=== PATIENT | male | born 1945 | race Caucasian/White ===

== ENCOUNTER 2016-08-07 12:12 | Inpatient (IN) | payer BC, OTHER ==
[~2016-08-07] VITALS: Ht 190.5 cm; Wt 150.9 kg
[~2016-08-07 12:12] MED LIST: ALLO100T PO; AZEL0.056; CZR25; ENOX1INJ14 SQ; TPRSR25
[2016-08-07] MEDS ORDERED: CHOL1000 PO (12:26)
[2016-08-07] MEDS ORDERED: OMEG10007 PO (12:26)
[2016-08-07] MEDS ORDERED: GLUC10007 PO (12:26)
[2016-08-07] MEDS ORDERED: WARF10TA4 PO (12:26)
[2016-08-07] MEDS ORDERED: LEVO50TA6 PO (12:26)
[2016-08-07] MEDS ORDERED: ALLO300T2 PO (12:39)
[2016-08-07] MEDS ORDERED: TPRSR/100 PO (12:39)
[2016-08-07] MEDS ORDERED: LOSA100T65 PO (12:39)
[2016-08-07 13:51] LABS: BASO % 0.6 %; BASO ABS # 0.05 K/uL (0-0.2); COMPLETE YES; EOS % 3.2 %; HEMATOCRIT 51.3 % (42-52); IG% 0.4 %; LYMPH % 18.9 %; LYMPH ABS # 1.55 K/uL (1.2-3.4); MEAN CELL VOLUME 91.1 fL (80-100); MEAN CORPUSCULAR HEMOGLOBIN 31.3 pg (25-34); MEAN CORPUSCULAR HGB CONC 34.3 g/dl (32-36); MEAN PLATELET VOLUME 12.1 fL (7.4-10.4); MONO % 3.8 %; NEUT % 73.1 %; PLATELET COUNT 205 K/uL (130-400); RED BLOOD COUNT 5.63 M/uL (4.7-6.1); WHITE BLOOD COUNT 8.22 K/uL (4.8-10.8)
[2016-08-07 14:14] LABS: BUN/CREATININE RATIO 16.9 (10-20); CALCIUM 9.4 mg/dl (8.5-10.1); CREATININE 1.5 mg/dl (0.60-1.40); POTASSIUM 4.8 mmol/L (3.5-5.1)
[2016-08-07 14:17] LABS: ALB/GLOB RATIO 0.7 (0.9-2)
[2016-08-07 14:21] LABS: INR 2.1 (0.9-1.1)
[2016-08-07 14:27] LABS: PARTIAL THROMBOPLASTIN RATIO 1.8; PROTHROMBIN TIME (PATIENT) 23.3 SECONDS (9.0-12.0)
--- NOTE | 2016-08-07 14:28 | EMERGENCY ROOM VISIT NOTE ---
ED Visit Note First contact with patient: 12:24 The patient was seen and examined with Antonella Stroud PA-C. I agree with the history, physical and findings. Please see the note for disposition and details.
--- NOTE | 2016-08-07 15:13 | DIAGNOSTIC IMAGING REPORT ---
ULTRASOUND LEFT VENOUS DOPP LOWER EXT UNILAT CLINICAL HISTORY: Left leg pain DISC H AND COMPARISON STUDY: No previous studies for comparison. FINDINGS: No intraluminal thrombus is visualized in left common femoral or superficial femoral veins. There is thrombus present within the distal popliteal vein, and one of 2 posterior tibial veins. There is also thrombus within a popliteal vein branch, likely the sural vein. IMPRESSION: Left leg DVT involving the distal popliteal vein and one of 2 posterior tibial veins. Electronically signed by: Christiano Liu M.D. 08/07/2016 3:11 PM Dictated Date/Time: 08/07/2016 3:08 PM
--- NOTE | 2016-08-07 15:16 | DIAGNOSTIC IMAGING REPORT ---
ARTERIAL DOPPLER ULTRASOUND LEFT LOWER EXTREMITY CLINICAL HISTORY: left leg pain, discoloration COMPARISON STUDY: No previous studies for comparison. FINDINGS: There is triphasic flow within the left common femoral, superficial femoral, popliteal, posterior tibial, peroneal, and anterior tibial arteries. No high velocity jets were visualized. Within the dorsalis pedis artery, there is an area of suspected occlusion. IMPRESSION: 1. No evidence of left lower extremity arterial stenosis from the groin to the major calf arteries. 2. Focal occlusion of the dorsalis pedis artery. Electronically signed by: Christiano Liu M.D. 08/07/2016 3:15 PM Dictated Date/Time: 08/07/2016 3:12 PM
[2016-08-07] MEDS ORDERED: ACETAMINOPHEN 325 MG TAB PO PRN (17:15)
[2016-08-07] MEDS ORDERED: ONDANSETRON INJ 2 MG/ML 2 ML VIAL IV PRN (17:15)
[2016-08-07] MEDS ORDERED: ALUMINUM/MAGNESIUM/SIMETH (MAALOX MAX) 30 ML UDC PO PRN (17:15)
[2016-08-07] MEDS ORDERED: POLYETHYLENE (MIRALAX) 17 GM PACK PO PRN (17:15)
[2016-08-07] MEDS ORDERED: MAGNESIUM HYDROXIDE SUSP 30 ML UDC PO PRN (17:15)
--- NOTE | 2016-08-07 17:48 | History and Physical ---
History & Physical Date & Time of Service: August 07, 2016 at 17:28 Chief Complaint: Purple Toe Symdrome, Might Be Infected Primary Care Physician: Clovis Heredia M.D. History of Present Illness Source: patient Mr. Rachel is a 70 y/o male with PMHx of Paroxysmal Atrial Fibrillation, HTN, CKD Stage III, Hypothyroidism, and DVT who presents to the ED for purple discoloration of toes of L foot since . He reports a rather sudden onset of purple discoloration largely of the 2nd and 3rd toes of the L foot with some involvement of the great toe which appeared to transcend up the wood. He reports that the purple discoloration of the wood and krueger is new since . He has never developed pain prior to the discoloration or currently. On Sunday he notes that the skin of the toes began to weep clear drainage and today he notes some blood mixed with this clear drainage. He denies purulent drainage. He also reports reddened/purple discoloration located between the R 2nd and 3rd toes that extends to the ball of the foot that is painless. Associated LLE edema which is not new but does report worsening of edema. He denies trauma to the feet or legs. His anticoagulation history reviewed and Dr. Zheng's note from outpatient clinic reviewed. Patient was initially placed on Rivaroxaban for his atrial fibrillation and reports being on this medication for a long time. In April, he developed left lower extremity edema and ultrasound revealed DVT in the soleal vein. Per patient, he was switched to apixaban but he appears to have failed these medications as new thrombi developed. Unsure why medications were switched within the same anticoagulation class. He was referred to Dr. Carmona and Dr. Zheng who placed him on Lovenox 1 mg/kg BID as a bridge for Coumadin recently. Upon arrival to ED, INR is therapeutic at 2.1. Patient was seen in outpatient anticoagulation clinic today and referred to the ED. He previously smoked cigars intermittently but quit 7 months ago and denies chewing tobacco use. He denies family history of hypercoagulable states. Reports father and brother from [place] but no known clots. He denies a personal history of known AAA but states he was told "I have a longer aorta"?. He denies H/O DVT prior to this finding in April or H/O PE. In the ED, Venous U/S reveals DVT of distal popliteal, popliteal branch, and one of the posterior tibial veins. Arterial U/S with focal occlusion of dorsalis pedis artery. He is normotensive, afebrile, and without leukocytosis. Outpatient note reports LLE warm to touch. On exam in ED, foot is cool to touch with adequate cap refill and no signs of necrotic tissue currently. Foot continues to have clear drainage. Pulses difficult to appreciate to palpation but confirmed by doppler and marked. 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) Multi-Drug Resistant Organisms History of MDRO: No Allergies Coded Allergies: Hydrochlorothiazide (Unverified Allergy, Unknown, "shut down kidneys", ) Home Medications Scheduled Allopurinol (Zyloprim), 300 MG PO DAILY Cholecalciferol (Vitamin D3), Unknown Dose PO DAILY Fish Oil (Bucyrus-3), Unknown Dose PO BID Levothyroxine Sodium (Levothyroxine Sodium), 1 TAB PO DAILY Losartan Potassium (Cozaar), 100 MG PO DAILY Metoprolol Succinate (Metoprolol Succinate ER), 100 MG PO DAILY Warfarin Sod (Jantoven), 10 MG PO DAILY Miscellaneous Medications Glucosamine Sulfate (Glucosamine), 1,000 MG PO Review of Systems Constitutional: No chills, No fever Eyes: No worsening of vision ENT: No nasal symptoms, No sore throat, No trouble swallowing Respiratory: No cough, No shortness of breath Cardiovascular: No chest pain Abdomen: No constipation, No diarrhea, No nausea, No pain, No vomiting Musculoskeletal: + swelling (LLE), No calf pain Genitourinary - Male: No dysuria Neurologic: No numbness/tingling Integumentary: + new/changing skin lesions (LLE - purple discoloration of wood and toes; reddened/purple discoloration of RLE between 1st and 2nd toes), No rash Allergic / Immunologic: No poor healing Physical Exam Vital Signs Date Time Temp Pulse Resp B/P Pulse Ox O2 Delivery O2 Flow Rate FiO2 08/07/16 15:06 65 18 139/92 96 Room Air 08/07/16 12:18 36.7 84 18 160/97 94 Room Air General Appearance: WD/WN, no apparent distress Head: normocephalic, atraumatic Eyes: sclerae normal ENT: hearing grossly normal Neck: supple, no JVD, trachea midline Respiratory/Chest: lungs clear, normal breath sounds, no respiratory distress, no accessory muscle use Cardiovascular: regular rate, rhythm, no gallop, no murmur Abdomen/GI: normal bowel sounds, non tender, soft Extremities/Musculoskelatal: no calf tenderness, normal capillary refill, + pedal edema, + pertinent finding (L foot cool to touch, pulses hard to appreciate, purple discoloration of anterior wood region with thickened browned skin, reddened/purple toes with superficial openings weeping serosang fluid, neg necrosis, diffuse edema extending up L leg; R foot with reddened/purple discoloration between 1st-2nd toes with superficial opening) Neurologic/Psych: alert, oriented x 3 Skin: normal color, warm/dry Diagnostics Laboratory Results Results Past 24 Hours Test 08/07/16 13:25 Range/Units White Blood Count 8.22 4.8-10.8 K/uL Red Blood Count 5.63 4.7-6.1 M/uL Hemoglobin 17.6 14.0-18.0 g/dL Hematocrit 51.3 42-52 % Mean Corpuscular Volume 91.1 80-100 fL Mean Corpuscular Hemoglobin 31.3 25-34 pg Mean Corpuscular Hemoglobin Concent 34.3 32-36 g/dl Platelet Count 205 130-400 K/uL Mean Platelet Volume 12.1 7.4-10.4 fL Neutrophils (%) (Auto) 73.1 % Lymphocytes (%) (Auto) 18.9 % Monocytes (%) (Auto) 3.8 % Eosinophils (%) (Auto) 3.2 % Basophils (%) (Auto) 0.6 % Neutrophils # (Auto) 6.02 1.4-6.5 K/uL Lymphocytes # (Auto) 1.55 1.2-3.4 K/uL Monocytes # (Auto) 0.31 0.11-0.59 K/uL Eosinophils # (Auto) 0.26 0-0.5 K/uL Basophils # (Auto) 0.05 0-0.2 K/uL RDW Standard Deviation 49.4 36.4-46.3 fL RDW Coefficient of Variation 14.8 11.5-14.5 % Immature Granulocyte % (Auto) 0.4 % Immature Granulocyte # (Auto) 0.03 0.00-0.02 K/uL Prothrombin Time 23.3 9.0-12.0 SECONDS Prothromb Time International Ratio 2.1 0.9-1.1 Partial Thromboplastin Ratio 1.8 Sodium Level 137 136-145 mmol/L Potassium Level 4.8 3.5-5.1 mmol/L Chloride Level 107 98-107 mmol/L Carbon Dioxide Level 23 21-32 mmol/L Anion Gap 7.0 3-11 mmol/L Blood Urea Nitrogen 25 7-18 mg/dl Creatinine 1.50 0.60-1.40 mg/dl Est Creatinine Clear Calc Drug Dose 69.4 ml/min Estimated GFR () 53.5 Estimated GFR (Non- 46.2 BUN/Creatinine Ratio 16.9 10-20 Random Glucose 106 70-99 mg/dl Calcium Level 9.4 8.5-10.1 mg/dl Total Bilirubin 0.4 0.2-1 mg/dl Aspartate Amino Transf (AST/SGOT) 56 15-37 U/L Alanine Aminotransferase (ALT/SGPT) 99 12-78 U/L Alkaline Phosphatase 83 45-117 U/L Total Protein 8.7 6.4-8.2 gm/dl Albumin 3.7 3.4-5.0 gm/dl Globulin 5.0 2.5-4.0 gm/dl Albumin/Globulin Ratio 0.7 0.9-2 Diagnostic Radiology 1. ULTRASOUND LEFT VENOUS DOPP LOWER EXT UNILAT FINDINGS: No intraluminal thrombus is visualized in left common femoral or superficial femoral veins. There is thrombus present within the distal popliteal vein, and one of 2 posterior tibial veins. There is also thrombus within a popliteal vein branch, likely the sural vein. IMPRESSION: Left leg DVT involving the distal popliteal vein and one of 2 posterior tibial veins. 2. ARTERIAL DOPPLER ULTRASOUND LEFT LOWER EXTREMITY FINDINGS: There is triphasic flow within the left common femoral, superficial femoral, popliteal, posterior tibial, peroneal, and anterior tibial arteries. No high velocity jets were visualized. Within the dorsalis pedis artery, there is an area of suspected occlusion. IMPRESSION: 1. No evidence of left lower extremity arterial stenosis from the groin to the major calf arteries. 2. Focal occlusion of the dorsalis pedis artery. Impression Assessment and Plan Mr. Rachel is a 70 y/o male with PMHx of Paroxysmal Atrial Fibrillation, HTN, CKD Stage III, Hypothyroidism, and DVT who presents to the ED for purple discoloration of toes of L foot since . Question of possible Purple Toe Syndrome vs Embolic Occlusion. Purple Toe Syndrome vs Embolic Occlusion with DVT LLE: - Development of DVT on Xarelto...was switched to Eliquis x approx. 4 months with further DVT discovered then started on Lovenox/Coumadin bridge currently therapeutic at 2.1 -- Question of Purple Toe Syndrome however this normally occurs approx. 8 weeks after treatment with Coumadin and rare - L Venous U/S - distal popliteal and posterior tibial thrombus with thrombus in popliteal branch; L arterial U/S with focal occlusion of dorsalis pedis artery - Stop Coumadin if this is purple toe syndrome - Start Heparin IV gtt - Hydrate with NSS at 100 mL/hr x 3 L - if Cr improves can consider CT with Contrast to evaluate for AAA or if it becomes emergent - unknown Cr baseline -- Evaluate for source of emboli per discussion with Dr. Munoz - Will evaluate A1c - no H/O DM but assess contributing factor for healing and vascular risk - Drainage appears serosang and not purulent and no documented fevers or leukocytosis - infection not suspected - may consider the addition of antibiotics - Echo - evaluate for embolic source due to H/O A Fib - Consult Heme/Onc - Patient follows with Dr. Carmona and Dr. Zheng at coagulation clinic -- Some reference labs ordered in ED - will await ordering further hypercoaguable studies pending eval by Heme/Onc -- Alternative anticoagulation therapy? -- Reviewed Dr. Zheng's note - DDx: antiphospholipid antibody syndrome, arterial thrombus with emboli, warfarin skin necrosis, purple toe syndrome... - Consult Vascular Surgery - discussed case with Dr. Munoz - recommend utilizing heparin and R/O embolic source from AAA -- Due to body habitus U/S will be unreliable and due to Cr of 1.[address] as contrast will be beneficial - reassess in AM after hydration CKD Stage III: Baseline Unknown - Gentle hydration overnight - Cr currently 1.5 - continue to monitor Paroxysmal Atrial Fibrillation: - Metoprolol 100 mg daily and hold Coumadin Hypothyroidism: - Check TSH - Synthroid 50 mcg daily DVT Prophylaxis: Heparin gtt Code Status: FULL RESUSCITATION Resident Physician Supervision Note: I was present with [Name of resident] during the history and exam. I discussed the case with the resident and agree with the findings and plan as documented in the note. Any exceptions or clarifications are listed here: 70 y/o M being treated for a L DVT - experiencing pain, edema and purple discoloration. DVT has not resolved on Xarelto and he is admitted due to worsening edema and possible ischemic changes. OE AAO x 3 S1,2 R CTAB NT, ND Swelling, erythema and poor capillary return noted - there is purple discoloration above the ankle - there is no overt cellulitis P: Case was discussed with the take away worker who advised on Heparin - presumably to transition to Coumadin We have consulted the vascular service as well as he may be developing a degree of ischemia and require intervention Documented By: Joel Ibanez Level of Care Telemetry Resuscitation Status FULL RESUSCITATION VTE Prophylaxis VTE Risk Assessment Done? Y/N: Yes Risk Level: Moderate Given or contraindicated: Other Anticoagulation (Heparin)
[2016-08-07] MEDS ORDERED: HEPARIN SOD 5000 UNIT/0.5 ML CARP ONE (18:01)
[2016-08-07] MEDS ORDERED: HEPARIN 25000 UNIT/500 ML D5W ONE (18:01)
[2016-08-07] MEDS: SODIUM CHLORIDE 0.9% 1000ML 1,000 ML IV SCH (19:14)
[2016-08-07 19:32] VITALS: Ht 190.5 cm; Wt 150.9 kg
--- NOTE | 2016-08-07 20:20 | EMERGENCY ROOM VISIT NOTE ---
History First contact with patient: 12:24 Chief Complaint: TOE PAIN, INJURY Stated Complaint: DEEP VENOUS THROMBOSIS History of Present Illness The patient is a 70 year old male who presents to the Emergency Room with complaints of discoloration of his feet, primarily of the left foot. The patient states that he was sent here by Dr. Zheng due to "purple toe syndrome. " He states that he recently started Lovenox and Coumadin one week ago. He states that 4 days ago, he developed discoloration of the first 3 toes of his left foot and between the first and second toes of his right foot. He states they have been using since then. He saw Dr. Zheng today and was sent here to rule out infection. He reports that he was started on Lovenox and Coumadin due to a DVT of his left leg, which was found by his shipboard intelligence analyst. Previously, the patient was taking Xarelto for atrial fibrillation. The patient denies any history of similar symptoms. He is not a diabetic. He denies any history of peripheral vascular disease. He denies any pain, numbness or weakness at this time. He denies any fevers/chills, chest pain or shortness of breath. Review of Systems A complete 10 point review of systems was reviewed with the patient with pertinent positives and negatives as per history of present illness. All else were negative. 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) Current/Historical Medications Scheduled Allopurinol (Zyloprim), 300 MG PO DAILY Cholecalciferol (Vitamin D3), Unknown Dose PO DAILY Fish Oil (Eagle-3), Unknown Dose PO BID Levothyroxine Sodium (Levothyroxine Sodium), 1 TAB PO DAILY Losartan Potassium (Cozaar), 100 MG PO DAILY Metoprolol Succinate (Metoprolol Succinate ER), 100 MG PO DAILY Warfarin Sod (Jantoven), 10 MG PO DAILY Miscellaneous Medications Glucosamine Sulfate (Glucosamine), 1,000 MG PO Allergies Coded Allergies: Hydrochlorothiazide (Unverified Allergy, Unknown, "shut down kidneys", ) Physical Exam Vital Signs Date Time Temp Pulse Resp B/P Pulse Ox O2 Delivery O2 Flow Rate FiO2 08/07/16 15:06 65 18 139/92 96 Room Air 08/07/16 12:18 36.7 84 18 160/97 94 Room Air Pain Rating (0-10): 0 Physical Exam VITALS: Vitals are noted on the nurse's note and reviewed by myself. Vital signs stable. GENERAL: This is a 70-year-old male, in no acute distress, nondiaphoretic, well- developed well-nourished. HEART: Regular rate and rhythm without murmurs gallops or rubs. LUNGS: Clear to auscultation bilaterally without wheezes, rales or rhonchi. EXTREMITIES: The left lower extremity is dusky in appearance from mid way up the left wood to the foot. There is a purplish discoloration of the left first , second, third and to a lesser extent fourth toes. There is oozing a serous fluid. Full range of motion of the toes. There is 3+ pitting edema to the left ankle and foot. There is a palpable dorsalis pedis pulse, though it is slightly weak. The foot is slightly cold to the touch. There is minimal discoloration of the webspace between the right first and second toes. NEURO: Patient was alert and oriented to person place and time. Normal sensation to light and sharp touch. Medical Decision & Procedures ER Provider Diagnostic Interpretation: ULTRASOUND LEFT VENOUS DOPP LOWER EXT UNILAT FINDINGS: No intraluminal thrombus is visualized in left common femoral or superficial femoral veins. There is thrombus present within the distal popliteal vein, and one of 2 posterior tibial veins. There is also thrombus within a popliteal vein branch, likely the sural vein. IMPRESSION: Left leg DVT involving the distal popliteal vein and one of 2 posterior tibial veins. ARTERIAL DOPPLER ULTRASOUND LEFT LOWER EXTREMITY FINDINGS: There is triphasic flow within the left common femoral, superficial femoral, popliteal, posterior tibial, peroneal, and anterior tibial arteries. No high velocity jets were visualized. Within the dorsalis pedis artery, there is an area of suspected occlusion. IMPRESSION: 1. No evidence of left lower extremity arterial stenosis from the groin to the major calf arteries. 2. Focal occlusion of the dorsalis pedis artery. Laboratory Results Test 08/07/16 13:25 Immature Granulocyte % (Auto) 0.4 % White Blood Count 8.22 K/uL (4.8-10.8) Red Blood Count 5.63 M/uL (4.7-6.1) Hemoglobin 17.6 g/dL (14.0-18.0) Hematocrit 51.3 % (42-52) Mean Corpuscular Volume 91.1 fL (80-100) Mean Corpuscular Hemoglobin 31.3 pg (25-34) Mean Corpuscular Hemoglobin Concent 34.3 g/dl (32-36) Platelet Count 205 K/uL (130-400) Mean Platelet Volume 12.1 fL (7.4-10.4) Neutrophils (%) (Auto) 73.1 % Lymphocytes (%) (Auto) 18.9 % Monocytes (%) (Auto) 3.8 % Eosinophils (%) (Auto) 3.2 % Basophils (%) (Auto) 0.6 % Neutrophils # (Auto) 6.02 K/uL (1.4-6.5) Lymphocytes # (Auto) 1.55 K/uL (1.2-3.4) Monocytes # (Auto) 0.31 K/uL (0.11-0.59) Eosinophils # (Auto) 0.26 K/uL (0-0.5) Basophils # (Auto) 0.05 K/uL (0-0.2) Immature Granulocyte # (Auto) 0.03 K/uL (0.00-0.02) Prothrombin Time 23.3 SECONDS (9.0-12.0) Prothromb Time International Ratio 2.1 (0.9-1.1) Total Bilirubin 0.4 mg/dl (0.2-1) Aspartate Amino Transf (AST/SGOT) 56 U/L (15-37) Alanine Aminotransferase (ALT/SGPT) 99 U/L (12-78) Alkaline Phosphatase 83 U/L (45-117) Total Protein 8.7 gm/dl (6.4-8.2) Albumin 3.7 gm/dl (3.4-5.0) Globulin 5.0 gm/dl (2.5-4.0) Albumin/Globulin Ratio 0.7 (0.9-2) Medications Administered Medications (Trade) Dose Ordered Sig/Karen Route Start Time Stop Time Status Last Admin Dose Admin Sodium Chloride (Nss 1000ml) 1,000 ml @ 100 mls/hr Q10H IV 08/07/16 17:13 08/08/16 23:12 DC 08/08/16 21:20 100 MLS/HR ED Course The patient was evaluated as above. Labs were drawn and IV access was obtained. Patient declined analgesics. I spoke with Dr. Zheng, who saw the patient today in the anticoagulation clinic. Ultrasound was performed and read by radiology as above. Patient was reevaluated and findings were discussed. I had an extensive conversation with the patient. He did not want to be admitted but I weighed the risks/benefits with the patient and he eventually agreed to admission. Case was discussed with the [facility] hospitalist, Dr. Ibanez. They agreed to evaluate the patient for admission. Medical Decision Differential diagnosis includes purple toe syndrome, warfarin induced skin necrosis, ITP, HIT, cellulitis, vascular occlusion, among others. The patient is a 70-year-old male who presents today complaining of discoloration of the left foot which started after he began Coumadin. Labs today showed no leukocytosis, anemia or thrombocytopenia. No concerning electrolyte abnormalities. No kidney or liver dysfunction. Ultrasound of the leg showed what appears to be worsening DVT as well as a focal occlusion of the dorsalis pedis artery. I spoke with Dr. Zheng regarding this patient. She recommended that I order this anticoagulant, anticardiolipin antibodies and beta 2 glycoprotein antibodies. These were ordered and are pending. I did discuss the results of the ultrasounds with her and she was concerned about possibly antiphospholipid antibody syndrome versus purple toe syndrome or warfarin induced skin necrosis. Either way, given the patient's symptoms and the occlusion in his artery, he does need to be admitted for further evaluation. The patient was agreeable to this in case was discussed with the hospitalist. The patient was independently evaluated by Dr. Mccain, ED attending physician, who agreed with my assessment and treatment plan. Impression Primary Impression: Arterial occlusion Additional Impression: DVT (deep venous thrombosis) Departure Information Dispostion Admitted as an inpatient Condition FAIR Referrals Clovis Heredia M.D. (PCP) Forms WORK / SCHOOL INSTRUCTIONS, HOME CARE DOCUMENTATION FORM, IMPORTANT VISIT INFORMATION Patient Instructions My [facility] Problem Qualifiers
[2016-08-07 20:24] VITALS: BP 126/79; PULSE 79; TEMP 36.6; O2SAT 94
[2016-08-07] MEDS: HEPARIN 25,000 UNIT/500ML D5W 500 ML IV PRN (23:16)
[2016-08-08] VITALS (8 sets, daily range): BP systolic 115–162; BP diastolic 75–96; PULSE 67–95; TEMP 36.5–36.7; O2SAT 90–97
[2016-08-08 01:14] LABS: PARTIAL THROMBOPLASTIN RATIO 4.2
[2016-08-08] MEDS: HEPARIN 25,000 UNIT/500ML D5W 500 ML IV PRN ×6 (02:32→23:51)
[2016-08-08] MEDS: SODIUM CHLORIDE 0.9% 1000ML 1,000 ML IV SCH ×3 (03:39→21:20)
[2016-08-08 05:47] LABS: HEMATOCRIT 47.6 % (42-52); MEAN CELL VOLUME 91.7 fL (80-100); MEAN CORPUSCULAR HEMOGLOBIN 31.4 pg (25-34); MEAN CORPUSCULAR HGB CONC 34.2 g/dl (32-36); MEAN PLATELET VOLUME 11.7 fL (7.4-10.4); PLATELET COUNT 159 K/uL (130-400); RED BLOOD COUNT 5.19 M/uL (4.7-6.1); WHITE BLOOD COUNT 7.54 K/uL (4.8-10.8)
[2016-08-08] MEDS: LEVOTHYROXINE 50 MCG TAB PO SCH (06:03)
[2016-08-08 06:16] LABS: BUN/CREATININE RATIO 16.1 (10-20); CALCIUM 8.8 mg/dl (8.5-10.1); CREATININE 1.4 mg/dl (0.60-1.40); POTASSIUM 4.3 mmol/L (3.5-5.1)
[2016-08-08 06:26] LABS: THYROID STIMULATING HORMONE 6.39 uIu/ml (0.300-4.500)
[2016-08-08 07:27] LABS: ESTIMATED AVERAGE GLUCOSE 123 mg/dl; HA1C FLAG Normal (Normal)
[2016-08-08] MEDS: ALLOPURINOL 300 MG TAB PO SCH (07:52)
[2016-08-08] MEDS: METOPROLOL SUCC 50MG EXT REL TAB PO SCH (07:52)
[2016-08-08] MEDS: LOSARTAN POTASSIUM 50 MG TAB PO SCH (07:52)
[2016-08-08 08:50] LABS: PARTIAL THROMBOPLASTIN RATIO 2.5
--- NOTE | 2016-08-08 10:41 | Oncology Consultation ---
Oncology/Heme Consultation Date of Consultation: August 08, 2016. Attending Physician: Lewis Weiner D.O. History of Present Illness Mr. Rachel is a 70 year old gentleman with a history of atrial fibrillation and CKD. He was started on Xarelto for stroke prevention. He was seen by Dr. Jennings , his watch and clock repairer, on 05/08/16, who noted increasing lower extremity edema, particularly on his left. Given the asymmetry, Dr. Jennings sent him for a lower extremity doppler which revealed an acute thrombus in the left soleal vein. Dr. Jennings switched his anticoagulant to Eliquis and sent him to me to discuss anticoagulants. He has never had a VTE before and has no family history. There were no clearly provoking factors at that time. Given his body habitus, I suspected he failed Xarelto due to his weight (it is poorly studied in patients over 150 kg). I started him on Lovenox as a bridge to Coumadin on 07/28/16 and arranged for him to follow in our anticoagulation clinic. He saw Dr. Zheng there earlier today and was found to have a purple, necrotic-appearing toe on his left foot. She arranged for him to be admitted for further evaluation. He denies any headaches, shortness of breath, or palpitations. He has residual phlebitis from his LLE DVT, which appears to have extended based upon his doppler report (his VTE in April was in the soleal vein, the current one extends into the posterior tibial and distal popliteal veins). He also appears to have an embolic thrombosis in his left dorsalis pedis artery. He is now on a heparin drip. 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) Allergies Coded Allergies: Hydrochlorothiazide (Unverified Allergy, Unknown, "shut down kidneys", ) Home Medications Scheduled Allopurinol (Zyloprim), 300 MG PO DAILY Cholecalciferol (Vitamin D3), Unknown Dose PO DAILY Fish Oil ([place]-3), Unknown Dose PO BID Levothyroxine Sodium (Levothyroxine Sodium), 1 TAB PO DAILY Losartan Potassium (Cozaar), 100 MG PO DAILY Metoprolol Succinate (Metoprolol Succinate ER), 100 MG PO DAILY Warfarin Sod (Jantoven), 10 MG PO DAILY Miscellaneous Medications Glucosamine Sulfate (Glucosamine), 1,000 MG PO Current Inpatient Medications Current Inpatient Medications Medications (Trade) Dose Ordered Sig/Karen Route Start Time Stop Time Status Last Admin Dose Admin Sodium Chloride (Nss 1000ml) 1,000 ml @ 100 mls/hr Q10H IV 08/07/16 17:13 08/08/16 23:12 08/08/16 03:39 100 MLS/HR Acetaminophen (Tylenol Tab) 650 mg Q4H PRN PO 08/07/16 17:15 09/06/16 17:14 Al Hydrox/Mg Hydrox/Simethicone (Maalox Max Susp) 15 ml Q4H PRN PO 08/07/16 17:15 09/06/16 17:14 Magnesium Hydroxide (Milk Of Magnesia Susp) 30 ml Q12H PRN PO 08/07/16 17:15 09/06/16 17:14 Ondansetron HCl (Zofran Inj) 4 mg Q6H PRN IV 08/07/16 17:15 09/06/16 17:14 Polyethylene (Miralax Powder Packet) 17 gm DAILY PRN PO 08/07/16 17:15 09/06/16 17:14 Allopurinol (Zyloprim Tab) 300 mg DAILY PO 08/08/16 09:00 09/07/16 08:59 08/08/16 07:52 300 MG Levothyroxine Sodium (Synthroid Tab) 50 mcg DAILYBB PO 08/08/16 06:30 09/07/16 06:29 08/08/16 06:03 50 MCG Losartan Potassium (coZAAR TAB) 100 mg DAILY PO 08/08/16 09:00 09/07/16 08:59 08/08/16 07:52 100 MG Metoprolol Succinate 100 mg 100 mg DAILY PO 08/08/16 09:00 09/07/16 08:59 08/08/16 07:52 100 MG Heparin Sodium/ Dextrose (Heparin 25,000 Unit/500ml D5W) 500 ml @ 32 mls/hr [id number] PRN IV 08/07/16 18:45 09/06/16 18:44 08/08/16 09:07 32 MLS/HR Review of Systems Constitutional: No chills, No fatigue, No fever Eyes: No worsening of vision ENT: No unusual epistaxis Respiratory: No cough, No hemoptysis, No shortness of breath Cardiovascular: No chest pain, No palpitations Abdomen: No nausea, No pain, No vomiting Musculoskeletal: No joint pain, No muscle pain Neurologic: No numbness/tingling, No weakness Hematologic / Lymphatic: + clotting problems, No abnormal bleeding/bruising Integumentary: + new/changing skin lesions (changes in his left foot, described below) Physical Exam Date Time Temp Pulse Resp B/P Pulse Ox O2 Delivery O2 Flow Rate FiO2 08/08/16 08:00 Room Air CPAP 08/08/16 07:18 36.5 93 20 125/85 92 Room Air 08/08/16 04:00 36.7 95 18 162/96 94 CPAP 08/08/16 04:00 CPAP 08/08/16 02:14 92 08/08/16 00:00 36.5 92 18 115/77 90 Room Air 08/08/16 00:00 Room Air 08/07/16 20:24 36.6 79 16 126/79 94 Room Air 08/07/16 19:32 Room Air 08/07/16 17:27 84 18 103/73 96 Room Air 08/07/16 15:06 65 18 139/92 96 Room Air 08/07/16 12:18 36.7 84 18 160/97 94 Room Air General Appearance: WD/WN, + obese Eyes: EOMI ENT: pharynx normal Respiratory/Chest: lungs clear, no respiratory distress Cardiovascular: no murmur, + irregularly irregular Abdomen/GI: non tender, soft Extremities/Musculoskelatal: + pertinent finding (LLE is edematous with an area of purple discoloration and ulceration around his second toe. Both feet are cool to touch. ) Neurologic/Psych: alert, oriented x 3 Skin: warm/dry, no rash Lymphatic: no adenopathy Laboratory Results Last 24 Hours Test 08/07/16 13:25 08/08/16 00:43 08/08/16 05:29 08/08/16 08:23 White Blood Count 8.22 K/uL 7.54 K/uL Red Blood Count 5.63 M/uL 5.19 M/uL Hemoglobin 17.6 g/dL 16.3 g/dL Hematocrit 51.3 % 47.6 % Mean Corpuscular Volume 91.1 fL 91.7 fL Mean Corpuscular Hemoglobin 31.3 pg 31.4 pg Mean Corpuscular Hemoglobin Concent 34.3 g/dl 34.2 g/dl Platelet Count 205 K/uL 159 K/uL Mean Platelet Volume 12.1 fL 11.7 fL Neutrophils (%) (Auto) 73.1 % Lymphocytes (%) (Auto) 18.9 % Monocytes (%) (Auto) 3.8 % Eosinophils (%) (Auto) 3.2 % Basophils (%) (Auto) 0.6 % Neutrophils # (Auto) 6.02 K/uL Lymphocytes # (Auto) 1.55 K/uL Monocytes # (Auto) 0.31 K/uL Eosinophils # (Auto) 0.26 K/uL Basophils # (Auto) 0.05 K/uL RDW Standard Deviation 49.4 fL 50.1 fL RDW Coefficient of Variation 14.8 % 14.9 % Immature Granulocyte % (Auto) 0.4 % Immature Granulocyte # (Auto) 0.03 K/uL Prothrombin Time 23.3 SECONDS Prothromb Time International Ratio 2.1 Activated Partial Thromboplast Time 47.5 SECONDS 110.2 SECONDS 66.1 SECONDS Partial Thromboplastin Ratio 1.8 4.2 2.5 Sodium Level 137 mmol/L 141 mmol/L Potassium Level 4.8 mmol/L 4.3 mmol/L Chloride Level 107 mmol/L 110 mmol/L Carbon Dioxide Level 23 mmol/L 24 mmol/L Anion Gap 7.0 mmol/L 7.0 mmol/L Blood Urea Nitrogen 25 mg/dl 23 mg/dl Creatinine 1.50 mg/dl 1.40 mg/dl Est Creatinine Clear Calc Drug Dose 69.4 ml/min 74.4 ml/min Estimated GFR () 53.5 58.2 Estimated GFR (Non- 46.2 50.2 BUN/Creatinine Ratio 16.9 16.1 Random Glucose 106 mg/dl 101 mg/dl Calcium Level 9.4 mg/dl 8.8 mg/dl Total Bilirubin 0.4 mg/dl Aspartate Amino Transf (AST/SGOT) 56 U/L Alanine Aminotransferase (ALT/SGPT) 99 U/L Alkaline Phosphatase 83 U/L Total Protein 8.7 gm/dl Albumin 3.7 gm/dl Globulin 5.0 gm/dl Albumin/Globulin Ratio 0.7 Estimated Average Glucose 123 mg/dl Hemoglobin A1c 5.9 % Thyroid Stimulating Hormone (TSH) 6.390 uIu/ml Assessment & Plan Mr. Rachel presents with evidence of poor blood flow to both feet, with ischemic signs in the left toes. 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 He also appears to have had extension of his previously documented left soleal vein DVT. There are not many disorders that present with both arterial and venous thrombosis. HIT is one, though his platelets are normal. Another is antiphospholipid antibody syndrome. He is already on anticoagulants, making LAC testing unreliable, but we can send antiphospholipid antibody levels, which were sent yesterday. Another possibility is warfarin skin necrosis, though this is a very rare entity. Finally, the two thromboses may be unrelated. He was inadequately anticoagulated for several months with a history of AFib, so it is possible he developed an atrial thrombus and is throwing emboli. The inadequate anticoagulation following his DVT (switching to Eliquis, another Xa inhibitor, did not overcome the resistance to Xarelto) may also have led to the extension of his soleal vein DVT. He is on Heparin for now and I would continue it. He is also ordered for an echocardiogram to evaluate for atrial thrombosis. There is no specific test for warfarin skin necrosis. It is seen most often in the setting of protein C deficiency, but testing for this would be inaccurate at this time, due to his active thrombosis and ongoing anticoagulation. Thus, it is important to establish if he has any sites of arterial embolization, to help determine if he can safely be put back on warfarin in the future. We will follow and make recommendations as his testing results.
--- NOTE | 2016-08-08 12:49 | Hospitalist Progress Note ---
Hospitalist Progress Note Date of Service August 08, 2016. (Aurora Yee ., PA-C) Subjective Pt evaluation today including: conversation w/ patient, physical exam, chart review, lab review, review of studies, conversation w/ security system sales consultant (spoke with Dr. Carmona), review of inpatient medication list Pain: None PO Intake: Tolerating PO diet Voiding: no voiding problems Patient reports feeling well. He states that aside from the drainage and discoloration of his toes, he has no complaints. He denies any pain from the affected toes as well as any numbness or tingling. He does note some discoloration of his left lower extremity which is new. He states that the swelling in his left lower extremity has been chronic for the last 6 years and it does not appear to be more swollen than normal according to the patient. The patient denies fevers, chills, sweats, chest pain, palpitations, claudication, cough, wheezing, shortness of breath, nausea, vomiting, abdominal pain, dysuria, hematuria, urinary retention, paralysis, weakness, numbness and tingling. Additional Comments: See HPI for pertinent positives and negatives. All other systems reviewed and negative. (Aurora Yee ., PA-C) Objective Vital Signs Date Time Temp Pulse Resp B/P Pulse Ox O2 Delivery O2 Flow Rate FiO2 08/08/16 08:00 Room Air CPAP 08/08/16 07:18 36.5 93 20 125/85 92 Room Air 08/08/16 04:00 36.7 95 18 162/96 94 CPAP 08/08/16 04:00 CPAP 08/08/16 02:14 92 08/08/16 00:00 36.5 92 18 115/77 90 Room Air 08/08/16 00:00 Room Air 08/07/16 20:24 36.6 79 16 126/79 94 Room Air 08/07/16 19:32 Room Air 08/07/16 17:27 84 18 103/73 96 Room Air 08/07/16 15:06 65 18 139/92 96 Room Air 08/07/16 12:18 36.7 84 18 160/97 94 Room Air (Aurora Yee ., PA-C) Physical Exam Notes: General appearance: + Morbidly obese. Well-developed, well-nourished, no apparent distress Head: Normocephalic, atraumatic Eyes: Normal inspection, PERRL, EOMI ENT: Normal ENT inspection, hearing grossly normal, pharynx normal Neck: Supple, no JVD, trachea midline Respiratory/Chest: Lungs clear to auscultation, normal breath sounds, no respiratory distress Cardiovascular: + Irregularly irregular, rate controlled during my exam. No gallop, no murmur Abdomen/GI: Normal bowel sounds, non-tender, soft Extremities/Musculoskeletal: + 2-3+ pitting edema bilaterally. Left lower leg/ anterior wood has dusky appearance. Red/purple discoloration b/w 1st and 2nd toes of R foot and b/w 2nd and 3rd toes of L foot extending to plantar surface of feet w/serosanguineous drainage and foul odor. Non-tender. Difficult to palpate pulses. No calf tenderness. Neurological/Psych: Alert, normal mood/affect, oriented x 3 Skin: Normal color, warm/dry, no rash (Aurora Yee ., PA-C) Laboratory Results Last 24 Hours Test 08/07/16 13:25 08/08/16 00:43 08/08/16 05:29 08/08/16 08:23 White Blood Count 8.22 K/uL 7.54 K/uL Red Blood Count 5.63 M/uL 5.19 M/uL Hemoglobin 17.6 g/dL 16.3 g/dL Hematocrit 51.3 % 47.6 % Mean Corpuscular Volume 91.1 fL 91.7 fL Mean Corpuscular Hemoglobin 31.3 pg 31.4 pg Mean Corpuscular Hemoglobin Concent 34.3 g/dl 34.2 g/dl Platelet Count 205 K/uL 159 K/uL Mean Platelet Volume 12.1 fL 11.7 fL Neutrophils (%) (Auto) 73.1 % Lymphocytes (%) (Auto) 18.9 % Monocytes (%) (Auto) 3.8 % Eosinophils (%) (Auto) 3.2 % Basophils (%) (Auto) 0.6 % Neutrophils # (Auto) 6.02 K/uL Lymphocytes # (Auto) 1.55 K/uL Monocytes # (Auto) 0.31 K/uL Eosinophils # (Auto) 0.26 K/uL Basophils # (Auto) 0.05 K/uL RDW Standard Deviation 49.4 fL 50.1 fL RDW Coefficient of Variation 14.8 % 14.9 % Immature Granulocyte % (Auto) 0.4 % Immature Granulocyte # (Auto) 0.03 K/uL Prothrombin Time 23.3 SECONDS Prothromb Time International Ratio 2.1 Activated Partial Thromboplast Time 47.5 SECONDS 110.2 SECONDS 66.1 SECONDS Partial Thromboplastin Ratio 1.8 4.2 2.5 Sodium Level 137 mmol/L 141 mmol/L Potassium Level 4.8 mmol/L 4.3 mmol/L Chloride Level 107 mmol/L 110 mmol/L Carbon Dioxide Level 23 mmol/L 24 mmol/L Anion Gap 7.0 mmol/L 7.0 mmol/L Blood Urea Nitrogen 25 mg/dl 23 mg/dl Creatinine 1.50 mg/dl 1.40 mg/dl Est Creatinine Clear Calc Drug Dose 69.4 ml/min 74.4 ml/min Estimated GFR () 53.5 58.2 Estimated GFR (Non- 46.2 50.2 BUN/Creatinine Ratio 16.9 16.1 Random Glucose 106 mg/dl 101 mg/dl Calcium Level 9.4 mg/dl 8.8 mg/dl Total Bilirubin 0.4 mg/dl Aspartate Amino Transf (AST/SGOT) 56 U/L Alanine Aminotransferase (ALT/SGPT) 99 U/L Alkaline Phosphatase 83 U/L Total Protein 8.7 gm/dl Albumin 3.7 gm/dl Globulin 5.0 gm/dl Albumin/Globulin Ratio 0.7 Estimated Average Glucose 123 mg/dl Hemoglobin A1c 5.9 % Thyroid Stimulating Hormone (TSH) 6.390 uIu/ml (Aurora Yee ., YUSEFC) Assessment and Plan 70 y/o male with a history of paroxysmal afib, HTN, CKD stage III, hypothyroidism, and recent DVT who presents to the ED for red/purple discoloration of toes since (08/03). LLE venous ultrasound showed DVT of distal popliteal and posterior tibial vein, as well as in the popliteal vein branch, likely sural vein. LLE arterial ultrasound shows focal occlusion of dorsalis pedis artery. Embolic occlusion and DVT--stable -Admitted to telemetry. Patient remained in A. fib overnight with heart rate between the 100s to 120s -Hematology consulted, appreciate recs: Spoke with Dr. Carmona. Possible antiphospholipid antibody syndrome. Warfarin skin necrosis unlikely as this is very rare. Recommended echocardiogram to assess for atrial thrombus as embolic source. Continue heparin for now. Currently DVT is likely not acute and is an extension of previous DVT. -Echo ordered -Immunology studies pending -Vascular surgery consulted, appreciate recs -Consider checking RLE arterial and venous ultrasounds. Creatinine stable for CT w/contrast to assess for AAA. Will await vascular recs -Continue heparin drip -HgbA1c 5.9 -Consult wound care nurse Paroxysmal afib--pt in RVR overnight but asymptomatic -Continue to monitor on tele -Continue metoprolol succinate 100 mg PO qd -Heparin, Coumadin held CKD stage III--stable. Baseline creatinine 1.2-1.4 per hospital records -Creatinine 1.5 on arrival -IVF NSS at 100 cc/hr x 3L -Creatinine 1.4 on 08/08 Hypothyroidism -Continue Synthroid 50 mcg PO qd DVT prophylaxis -Heparin drip Code Status -Level I, FULL RESUSCITATION STATUS (Aurora Yee ., PA-C) I agree with PA assessment and plan and have seen and examined pt myself Noted discoloration and clear drainage from toes Wound consult placed Appreciate Heme/Onc and Vasc Surg recs Cont heparin at this time Awaiting further studies at this time Labs and imaging reviewed (Lewis Weiner D.O.)
--- NOTE | 2016-08-08 12:50 | Medical Student: [facility] ---
Med Student History & Physical Date & Time of Service: August 08, 2016 at 12:14 Chief Complaint: Deep Venous Thrombosis Primary Care Physician: Clovis Heredia M.D. History of Present Illness Source: patient Mr. Rachel is a 70y/o male with a past medical history of atrial fibrillation, DVT, HTN, CKD, and hypothyroidism who was admitted on 08/07/16 for wounds on his left foot and right foot with increased b/l lower leg swelling and discoloration. Mr. Rachel reported that he first noticed discoloration between his toes on both feet 5 days ago, which he originally attributed to "athlete's foot." He also reported a clear fluid "oozing" from the wounds on both feet. He reports no pain. Mr. Rachel said he was advised to go to the ED by his doctor at the anticoagulation clinic, which monitors the treatment of his prior DVT. Recent medication changes for his DVT include switching from rivaroxaban to apixaban to his current medication of a enoxaparin bridge to warfarin. His anticoagulation doctor was concerned for blue toe syndrome due to warfarin. Past Medical/Surgical History Past Medical History: Atrial fibrillation HTN CKD Hypothyroidism DVT Past Surgical History: none Family History Father: heart disease (Father from heart attack.) Mother: cancer (Mother from breast cancer.) Sibling(s): heart disease (Brother from heart attack.) Social History Smoking Status: Former Smoker (Smoked cigars for 54 years; quit 7 months ago. 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.) Allergies Coded Allergies: Hydrochlorothiazide (Unverified Allergy, Unknown, "shut down kidneys", ) Medications Allopurinol (Zyloprim), 300 MG PO DAILY Cholecalciferol (Vitamin D3), Unknown Dose PO DAILY Fish Oil ([place]-3), Unknown Dose PO BID Glucosamine Sulfate (Glucosamine), 1,000 MG PO Levothyroxine Sodium (Levothyroxine Sodium), 1 TAB PO DAILY Losartan Potassium (Cozaar), 100 MG PO DAILY Metoprolol Succinate (Metoprolol Succinate ER), 100 MG PO DAILY Warfarin Sod (Jantoven), 10 MG PO DAILY Review of Systems Constitutional: No chills, No fatigue, No fever, No sweats, No weakness Eyes: No worsening of vision ENT: + hearing loss (uses hearing aid for right ear.) Respiratory: No cough, No shortness of breath Cardiovascular: + edema (b/l lower extremity edema), No chest pain Abdomen: No nausea, No pain, No vomiting Musculoskeletal: + swelling (b/l lower extremity edema), No calf pain, No joint pain, No muscle pain Neurologic: No memory loss, No weakness Endocrine: No fatigue Physical Exam Vital Signs (24 Hours) Date Time Temp Pulse Resp B/P Pulse Ox O2 Delivery O2 Flow Rate FiO2 08/08/16 08:00 Room Air CPAP 08/08/16 07:18 36.5 93 20 125/85 92 Room Air 08/08/16 04:00 36.7 95 18 162/96 94 CPAP 08/08/16 04:00 CPAP 08/08/16 02:14 92 08/08/16 00:00 36.5 92 18 115/77 90 Room Air 08/08/16 00:00 Room Air 08/07/16 20:24 36.6 79 16 126/79 94 Room Air 08/07/16 19:32 Room Air 08/07/16 17:27 84 18 103/73 96 Room Air 08/07/16 15:06 65 18 139/92 96 Room Air 08/07/16 12:18 36.7 84 18 160/97 94 Room Air General Appearance: WD/WN, no apparent distress, + obese Head: normocephalic, atraumatic Eyes: normal inspection, PERRL, EOMI, sclerae normal Neck: no adenopathy, thyroid normal Respiratory/Chest: chest non-tender, lungs clear, normal breath sounds, no respiratory distress Abdomen/GI: normal bowel sounds, non tender, soft Back: normal inspection Extremities/Musculoskelatal: no calf tenderness, + pedal edema, + swelling Neurologic/Psych: alert, normal mood/affect, oriented x 3 Skin: + pertinent finding (wound on left foot and right foot; left worse than right. b/l leg discoloration; left worse than right.) Diagnostics Laboratory Results Results Past 24 Hours Test 08/07/16 13:25 08/08/16 00:43 08/08/16 05:29 08/08/16 08:23 Range/Units White Blood Count 8.22 7.54 4.8-10.8 K/uL Red Blood Count 5.63 5.19 4.7-6.1 M/uL Hemoglobin 17.6 16.3 14.0-18.0 g/dL Hematocrit 51.3 47.6 42-52 % Mean Corpuscular Volume 91.1 91.7 80-100 fL Mean Corpuscular Hemoglobin 31.3 31.4 25-34 pg Mean Corpuscular Hemoglobin Concent 34.3 34.2 32-36 g/dl Platelet Count 205 159 130-400 K/uL Mean Platelet Volume 12.1 11.7 7.4-10.4 fL Neutrophils (%) (Auto) 73.1 % Lymphocytes (%) (Auto) 18.9 % Monocytes (%) (Auto) 3.8 % Eosinophils (%) (Auto) 3.2 % Basophils (%) (Auto) 0.6 % Neutrophils # (Auto) 6.02 1.4-6.5 K/uL Lymphocytes # (Auto) 1.55 1.2-3.4 K/uL Monocytes # (Auto) 0.31 0.11-0.59 K/uL Eosinophils # (Auto) 0.26 0-0.5 K/uL Basophils # (Auto) 0.05 0-0.2 K/uL RDW Standard Deviation 49.4 50.1 36.4-46.3 fL RDW Coefficient of Variation 14.8 14.9 11.5-14.5 % Immature Granulocyte % (Auto) 0.4 % Immature Granulocyte # (Auto) 0.03 0.00-0.02 K/uL Prothrombin Time 23.3 9.0-12.0 SECONDS Prothromb Time International Ratio 2.1 0.9-1.1 Activated Partial Thromboplast Time 47.5 110.2 66.1 21.0-31.0 SECONDS Partial Thromboplastin Ratio 1.8 4.2 2.5 Sodium Level 137 141 136-145 mmol/L Potassium Level 4.8 4.3 3.5-5.1 mmol/L Chloride Level 107 110 98-107 mmol/L Carbon Dioxide Level 23 24 21-32 mmol/L Anion Gap 7.0 7.0 3-11 mmol/L Blood Urea Nitrogen 25 23 7-18 mg/dl Creatinine 1.50 1.40 0.60-1.40 mg/dl Est Creatinine Clear Calc Drug Dose 69.4 74.4 ml/min Estimated GFR () 53.5 58.2 Estimated GFR (Non- 46.2 50.2 BUN/Creatinine Ratio 16.9 16.1 10-20 Random Glucose 106 101 70-99 mg/dl Calcium Level 9.4 8.8 8.5-10.1 mg/dl Total Bilirubin 0.4 0.2-1 mg/dl Aspartate Amino Transf (AST/SGOT) 56 15-37 U/L Alanine Aminotransferase (ALT/SGPT) 99 12-78 U/L Alkaline Phosphatase 83 45-117 U/L Total Protein 8.7 6.4-8.2 gm/dl Albumin 3.7 3.4-5.0 gm/dl Globulin 5.0 2.5-4.0 gm/dl Albumin/Globulin Ratio 0.7 0.9-2 Estimated Average Glucose 123 mg/dl Hemoglobin A1c 5.9 4.5-5.6 % Thyroid Stimulating Hormone (TSH) 6.390 0.300-4.500 uIu/ml Elevated random blood glucose and HgbA1c may indicate Mr. Rachel is pre- diabetic. Elevated LFTs may be due to.. Elevated TSH may indicate an increase is Levothyroxine is needed. Elevated BUN Elevated aPTT due to Heparin drip (monitoring anticoagulation). Diagnostic Radiology ULTRASOUND LEFT VENOUS DOPP LOWER EXT UNILAT Results: Left leg DVT involving the distal popliteal vein and one of 2 posterior tibial veins ARTERIAL DOPPLER ULTRASOUND LEFT LOWER EXTREMITY Results: IMPRESSION: 1. No evidence of left lower extremity arterial stenosis from the groin to the major calf arteries. 2. Focal occlusion of the dorsalis pedis artery. Impression Assessment and Plan Mr. Rachel is a 70y/o male with a past medical history of atrial fibrillation, DVT, HTN, CKD, and hypothyroidism. The wounds on his left foot and right foot with increased b/l lower leg swelling and discoloration have not improved. Are this wounds due to blue toe syndrome vs. DVT vs. poor lower extremity circulation/superficial infection. left leg DVT: continue heparin drip. b/l foot wounds and leg discoloration: continue to monitor; circulation to lower extremities may improve with continued anticoagulation. hypothyroidism: consider levothyroxine increase due to increased TSH. atrial fibrillation: continue metoprolol. HTN: continue losartan. Advanced Directives Existing Living Will: Yes Existing Power of Furnace Liner: Yes
[2016-08-08] MEDS ORDERED: SODIUM CHLORIDE 0.9% 1000ML 1,000 ML IV SCH (13:33)
--- NOTE | 2016-08-08 13:55 | Surgery Consultation ---
Consultation Date of Service August 08, 2016. Chief Complaint BLE foot discoloration History of Present Illness The patient is a 70 year old male with multiple medical problems, including HTN , a fib, CKD, DVT, antiphospholipid syndrome, seen in consultation today for BLE foot discoloration d/t possible embolization vs red toe syndrome from coumadin. Pt denies injury and states he noted the brownish/red discoloration beginning the end of last week, but became much worse over the weekend. No associated pain. Admits BLE edema chronically, left worse than right. Denies fever, palpitations, chills, chest pain, abd pain, N/V, rest pain, claudication , other complaints. Imaging demonstrates no significant arterial disease in BLE. Vitals Vital Signs Past 12 Hours Date Time Temp Pulse Resp B/P Pulse Ox O2 Delivery O2 Flow Rate FiO2 08/08/16 12:42 36.5 67 22 115/75 97 Room Air 08/08/16 12:00 Room Air CPAP 08/08/16 08:00 Room Air CPAP 08/08/16 07:18 36.5 93 20 125/85 92 Room Air 08/08/16 04:00 36.7 95 18 162/96 94 CPAP 08/08/16 04:00 CPAP 08/08/16 02:14 92 Allergies Coded Allergies: Hydrochlorothiazide (Unverified Allergy, Unknown, "shut down kidneys", ) Home Medications Scheduled Allopurinol (Zyloprim), 300 MG PO DAILY Cholecalciferol (Vitamin D3), Unknown Dose PO DAILY Fish Oil ([place]-3), Unknown Dose PO BID Levothyroxine Sodium (Levothyroxine Sodium), 1 TAB PO DAILY Losartan Potassium (Cozaar), 100 MG PO DAILY Metoprolol Succinate (Metoprolol Succinate ER), 100 MG PO DAILY Warfarin Sod (Jantoven), 10 MG PO DAILY Miscellaneous Medications Glucosamine Sulfate (Glucosamine), 1,000 MG PO Problem List Medical Problems: (1) Deep Venous Thrombosis Surgical / Medical History Past Medical/Surgical History: Heart Disease, High Cholesterol, Hypertension, Kidney Disease, Thyroid Disease Family History Myocardial Infarction FATHER, BROTHER, Social History Smoking Status: Former Smoker (Smoked cigars for 54 years; quit 7 months ago. How often?) Hx Tobacco Use In Past Year?: Yes (quit smoking approximately 7 months ago) Hx Alcohol Use - Type & Amnt: Yes (6 pack/week 1 bottle red wine/week; 1 bottle champagne/ week) Hx Substance Use -Type & Amnt: No Review of Systems Constitutional: No chills, No fever, No malaise Skin: + change in color Eyes: No visual changes ENMT: No sore throat Respiratory: No FORD, No cough, No short of breath Cardiovascular: + edema, No chest pain, No intermittent claudication, No palpitations, No syncope Gastrointestinal: No abdominal pain, No nausea, No vomiting Neurologic: No dizziness, No headache, No numbness, No tingling Physical Exam Constitutional: General Apperance: well-nourished, well-developed, obese Level of Distress: NAD Psychiatric: Mental Status: active & alert, normal mood, normal affect Orientation: oriented except where noted, to time, to place, to person Memory: recent memory normal, remote memory normal Head: normocephalic, atraumatic Eyes: EOM: EOMI ENMT: normal ENT inspection, hearing grossly normal Neck: supple, trachea midline Lungs: Respiratory effort: no dyspnea Auscultation: no rales/crackles, no rhonchi Cardiovascular: Apical Impulse: not displaced Heart Auscultation: no rubs, no gallops, pertinent finding (irregular) Peripheral Pulses: Pulses: full and equal, in all extremities except if noted Bruits: none appreciated Carotid Pulse: normal on the left, normal on the right Brachial Pulses: normal on the left, normal on the right Radial Pulse: normal on the left, normal on the right Femoral Pulse: normal on the left, normal on the right Posterior Tibialis Pulse: normal on the right (+2), decreased on the left (+ 1) Dorsalis Pedis Pulse: normal on the right (+2), decreased on the left (+1) Abdomen: Bowel Sounds: normal Inspection & Palpation: soft, non-distended, no tenderness, guarding & rebound Musculoskeletal: normal strength (5/5 throughout), normal tone Extremities: Upper Right: no cyanosis, no edema, no varicosities Upper Left: no cyanosis, no edema, no varicosities Lower Right: no varicosities, no palpable cord, edema (+2), pertinent finding (BLE with distal forefoot and between toes red/brown colored skin breakdown, wet, with odor and local erythema/edema/warmth. Left worse than right. Toes with brisk cap refill ) Lower Left: no varicosities, no palpable cord, edema (+3) Neurologic: Cranial Nerves: grossly intact Sensation: grossly intact Assessment and Plan ASSESSMENT and PLAN: BL foot discoloration, Possible embolization vs purple toe syndrome Superimposed skin infection Pt also seen by Dr Munoz today. Pt without pain or other sx pointing to embolization,however, recommend rule out distal embolization from cardiac or arterial source with echo and CTA chest/abdomen. Recommend silvadene to BLE open areas with dry dressings and IV abx for infection. Will also check plain CT feet. Plan discussed with pt and .
[2016-08-08] MEDS ORDERED: OPTIRAY 320 IV PRN (14:00)
[2016-08-08] MEDS: CEFAZOLIN IV 2,000 MG in DEXTROSE 5% 50ML 50 ML IV SCH ×2 (14:26→22:44)
--- NOTE | 2016-08-08 15:49 | ECHOCARDIOGRAM REPORT ---
*NOTICE TO RECEIVING CONSTITUTION PARTY AGENCY This information is strictly Confidential and protected under [place] law. [place] law prohibits you from making any further disclosure of this information unless further disclosure is expressly permitted by the written consent of the person to whom it pertains or is authorized by law. A general authorization for the release of medical or other information is not sufficient for this purpose. Hospital accepts no responsibility if the information is made available to any other person, INCLUDING THE PATIENT. Interpretation Summary * Name: ANNAMARIE LARSEN Study Date: 08/08/2016 01:43 PM BP: 162/96 mmHg * Patient Location: [facility]\S\N284\S\1 HR: 99 * : 1945 (M/d/yyyy) Gender: Male Height: 75 in * Age: 70 yrs Ethnicity: [place] Weight: 319 lb * Ordering Physician: Liliana Madrigal * Referring Physician: Self, Referred * Performed By: Margret Babb RCS * * Reason For Study: A-FIB * BSA: 2.7 m2 * -- Conclusions -- * 1. Normal LV size. Mild concentric LVH. * 2. Normal LV systolic function. LVEF 55-60%. Abnormal septal motion consistent with conduction abnormality. * 3. Normal RV size and function. * 4. Severely dilated left atrium. * 5. Aortic sclerosis without stenois. * 6. Compared with prior study on 04/07/2010: * No significant changes. Procedure Details * A complete two-dimensional transthoracic echocardiogram was performed (2D, M-mode, Doppler and color flow Doppler). * The study was technically difficult. * A contrast injection of Definity was performed to improve assessment of LV function. * Contrast was injected into an intravenous site in the left arm. * One vial of Definity ultrasound contrast was diluted in normal saline to a total volume of 10 ml. A total of '1' ml of solution was administered during imaging. * Lot # [id number] of Definity utilized for procedure. * Expiration date JUL 11. Left Ventricle * The left ventricle is grossly normal size. * There is mild concentric left ventricular hypertrophy. * Ejection Fraction = 55-60%. * Septal motion is consistent with conduction abnormality. Right Ventricle * The right ventricle is grossly normal size. * The right ventricular systolic function is normal as assessed by tricuspid annular plane systolic excursion (TAPSE) (normal >1.5 cm). Atria * The left atrium is severely dilated. * The right atrium is mildly dilated. * No ASD detected; PFO is not assessed. Mitral Valve * The mitral valve is grossly normal. * There is no mitral valve stenosis. * There is trace mitral regurgitation. Tricuspid Valve * The tricuspid valve is not well visualized. * There is no tricuspid stenosis. * Significant tricuspid regurgitation is absent. Aortic Valve * The aortic valve is not well visualized. * Aortic valve sclerosis mild, without significant aortic valvular stenosis. * No hemodynamically significant valvular aortic stenosis. * There is no significant aortic regurgitation. Pulmonic Valve * The pulmonary valve is inadequately visualized, but the Doppler data is adequate for interpretation. * There is no pulmonic valvular stenosis. * There is no pulmonic valvular regurgitation. Great Vessels * Borderline aortic root dilatation. Pericardium/Pleural * There is no pericardial effusion. Great Vessels * Normal inferior vena cava size and collapsability with sniff indicates a normal right atrial pressure of 3 mmHg MMode 2D Measurements and Calculations IVSd 1.6 cm IVSs 2.0 cm LVIDd 5.3 cm LVIDs 3.6 cm LVPWd 1.1 cm LVPWs 1.3 cm IVS/LVPW 1.4 FS 31.8 % EDV(Teich) 134.4 ml ESV(Teich) 54.5 ml EF(Teich) 59.4 % EDV(cubed) 147.5 ml ESV(cubed) 46.8 ml EF(cubed) 68.3 % % IVS thick 30.4 % % LVPW thick 14.1 % LV mass(C)d 300.4 grams LV mass(C)dI 112.3 grams/m\S\2 LV mass(C)s 238.6 grams LV mass(C)sI 89.2 grams/m\S\2 SV(Teich) 79.8 ml SI(Teich) 29.8 ml/m\S\2 SV(cubed) 100.7 ml SI(cubed) 37.6 ml/m\S\2 Ao root diam 3.9 cm Ao root area 12.1 cm\S\2 LA dimension 5.1 cm LA/Ao 1.3 LVOT diam 2.0 cm LVOT area 3.2 cm\S\2 Doppler Measurements and Calculations MV E max sherwin 78.1 cm/sec MV P1/2t max sherwin 105.9 cm/sec MV P1/2t 86.4 msec MVA(P1/2t) 2.5 cm\S\2 MV dec slope 359.2 cm/sec\S\2 MV dec time 0.30 sec Ao V2 max 163.6 cm/sec Ao max PG 10.7 mmHg Ao max PG (full) 8.0 mmHg DAVID(V,A) 1.6 cm\S\2 DAVID(V,D) 1.6 cm\S\2 LV V1 max PG 2.7 mmHg LV V1 max 82.2 cm/sec
[2016-08-08] MEDS: SILVER SULFADIAZINE 1% CR 50 GM JAR EXT SCH (16:12)
--- NOTE | 2016-08-08 17:27 | DIAGNOSTIC IMAGING REPORT ---
CT CHEST COMBO ANGIOGRAPHY CT DOSE: 2960.20 mGy.cm CLINICAL HISTORY: Peripheral embolus. Possible dissection or atherosclerotic disease. TECHNIQUE: Unenhanced images were obtained through the thorax. The study was then repeated in a dynamic helical fashion during intravenous administration 115 cc of Optiray 320. MIP imaging was performed. COMPARISON STUDY: None. FINDINGS: Unenhanced studies reveal no evidence of acute aortic hematoma. There is mild dilatation of the ascending thoracic aorta which measures 45 mm at the level of the pulmonary artery. There are no intimal flaps to indicate aortic dissection. There are no main pulmonary artery filling defects. The study was not timed for evaluation of pulmonary emboli. There are dependent atelectatic changes. There is no lobar consolidation. There are no bony destructive lesions. There is an incidental T9 vertebral body hemangioma. There are calcifications within mediastinal and hilar lymph nodes, likely postinflammatory. There is no pathologic axillary lymphadenopathy. There is probable hepatic steatosis. There are multiple bilateral renal cysts. The largest the right measures 12 cm. There is a 3.4 cm hyperdense left renal cyst. IMPRESSION: 1. No evidence of thoracic aortic dissection 2. Mild dilatation of the ascending thoracic aorta which measures 45 mm. 2. No evidence of significant atheromatous plaque within the thoracic aorta. Electronically signed by: Christiano Liu M.D. 08/08/2016 5:26 PM Dictated Date/Time: 08/08/2016 5:20 PM
--- NOTE | 2016-08-08 17:33 | DIAGNOSTIC IMAGING REPORT ---
CT ANGIO ABDOMEN WITH CONTRAST CT DOSE: CLINICAL HISTORY: Distal embolization. Possible aortic aneurysm, dissection, or atheromatous plaque. TECHNIQUE: The patient was scanned in a dynamic helical fashion during intravenous administration of 115 cc of Optiray 320. MIP imaging was performed. COMPARISON STUDY: None. FINDINGS: Images the lung bases reveal dependent atelectatic changes. There is mild dilatation of the ascending thoracic aorta which measures 45 mm. There is no evidence of abdominal aortic aneurysm. There is no evidence of significant atherosclerotic plaque within the abdominal aorta or visualized portions of the proximal iliac arteries. There is no evidence of aortic dissection. The inferior mesenteric artery is patent. There are 2 left renal arteries and 2 right renal arteries. There is no evidence of renal artery stenosis. There is no evidence of celiac or superior mesenteric artery stenosis. There is hepatic steatosis. No hepatic masses are visualized. No gallbladder abnormalities are visualized. No splenic masses are visualized. No pancreatic masses are visualized. No adrenal masses are visualized. There are multiple bilateral renal cysts including a 12 7 right renal cyst, and 3.5 cm hyperdense left renal cyst. There is no pathologic bowel dilatation. Left common iliac artery lymph nodes are the upper limits of normal in size. IMPRESSION: 1. No evidence of abdominal aortic aneurysm or dissection 2. No evidence of significant aortic plaquing 3. No evidence of celiac, superior mesenteric, or renal artery stenosis. Electronically signed by: Christiano Liu M.D. 08/08/2016 5:31 PM Dictated Date/Time: 08/08/2016 5:27 PM
--- NOTE | 2016-08-08 17:36 | DIAGNOSTIC IMAGING REPORT ---
CT RIGHT LOWER EXTREMITY WITHOUT CT DOSE: CLINICAL HISTORY: Right foot infection. Peripheral embolus. Evaluate for osteomyelitis. TECHNIQUE: Helical images were acquired in the transverse plane. Sagittal and coronal reformatted images were acquired. COMPARISON STUDY: None. FINDINGS: No acute fractures are visualized. There is diffuse soft tissue edema. There are no fluid collections acute as suspicious for abscess. There is no air within the soft tissues to indicate a necrotizing fasciitis. There are moderate degenerative changes present within the forefoot with moderately extensive subchondral cyst formation. There are no destructive changes to indicate osteomyelitis. IMPRESSION: 1. Moderate arthritic changes within the forefoot with extensive subchondral cyst formation 2. Soft tissue edema 3. No evidence of osteomyelitis. Electronically signed by: Christiano Liu M.D. 08/08/2016 5:35 PM Dictated Date/Time: 08/08/2016 5:33 PM
--- NOTE | 2016-08-08 17:42 | DIAGNOSTIC IMAGING REPORT ---
CT LEFT LOWER EXTREMITY WITHOUT CT DOSE: 287.54 mGy.cm CLINICAL HISTORY: Foot infection. Distal embolus. Possible osteomyelitis. TECHNIQUE: Helical images were acquired in the transverse plane. Sagittal and coronal reformatted images were acquired. COMPARISON STUDY: None. FINDINGS: There are no fluid collections to indicate an abscess. There is diffuse soft tissue edema. No fractures are visualized. There is apparent soft tissue ulceration at the level the first webspace. There is degenerative/arthritic changes present within the midfoot with subchondral cyst formation. There are no CT findings to indicate acute osteomyelitis IMPRESSION: 1. Soft tissue ulceration at the level of the first webspace 2. No evidence of abscess. No CT evidence of acute osteomyelitis. 3. Moderate degenerative/arthritic changes present within the midfoot with extensive subchondral cyst formation. Electronically signed by: Christiano Liu M.D. 08/08/2016 5:40 PM Dictated Date/Time: 08/08/2016 5:37 PM
[2016-08-08] MEDS ORDERED: NURSING VERBAL MED ORDER ONE (21:20)
[2016-08-09] VITALS (8 sets, daily range): BP systolic 108–137; BP diastolic 70–94; PULSE 64–102; TEMP 36.5–37; O2SAT 93–97
[2016-08-09 06:00] LABS: HEMATOCRIT 47.6 % (42-52); MEAN CELL VOLUME 92.6 fL (80-100); MEAN CORPUSCULAR HEMOGLOBIN 31.9 pg (25-34); MEAN CORPUSCULAR HGB CONC 34.5 g/dl (32-36); MEAN PLATELET VOLUME 11.7 fL (7.4-10.4); PLATELET COUNT 160 K/uL (130-400); RED BLOOD COUNT 5.14 M/uL (4.7-6.1); WHITE BLOOD COUNT 6.53 K/uL (4.8-10.8)
[2016-08-09] MEDS: CEFAZOLIN IV 2,000 MG in DEXTROSE 5% 50ML 50 ML IV SCH ×3 (06:06→22:39)
[2016-08-09] MEDS: LEVOTHYROXINE 50 MCG TAB PO SCH (06:06)
[2016-08-09 06:30] LABS: CALCIUM 8.3 mg/dl (8.5-10.1); CREATININE 1.4 mg/dl (0.60-1.40); POTASSIUM 4.2 mmol/L (3.5-5.1)
[2016-08-09] MEDS: HEPARIN 25,000 UNIT/500ML D5W 500 ML IV PRN ×3 (06:48→15:36)
[2016-08-09] MEDS: ALLOPURINOL 300 MG TAB PO SCH (09:13)
[2016-08-09] MEDS: LOSARTAN POTASSIUM 50 MG TAB PO SCH (09:14)
[2016-08-09] MEDS: METOPROLOL SUCC 50MG EXT REL TAB PO SCH (09:14)
[2016-08-09] MEDS: SILVER SULFADIAZINE 1% CR 50 GM JAR EXT SCH (10:25)
--- NOTE | 2016-08-09 11:31 | Hospitalist Progress Note ---
Hospitalist Progress Note Date of Service August 09, 2016. (Aurora Yee ., PA-C) Subjective Pt evaluation today including: conversation w/ patient, conversation w/ family ( at bedside), physical exam, chart review, lab review, review of studies, conversation w/ technology methodology consultant (spoke with Dr. Carmona), review of inpatient medication list Pain: None PO Intake: Tolerating PO diet Voiding: no voiding problems Patient reports feeling well. He still denies any pain, numbness or tingling in his toes bilaterally. He states that he seems to have better mobility of his toes today compared to yesterday. He reports that the swelling is the same, and the redness of his LLE anterior wood is unchanged as well. The patient denies fevers, chills, sweats, chest pain, palpitations, claudication, cough, wheezing, shortness of breath, nausea, vomiting, abdominal pain, dysuria, hematuria, urinary retention, paralysis, weakness, numbness and tingling. Additional Comments: See HPI for pertinent positives and negatives. All other systems reviewed and negative. (Aurora Yee ., PA-C) Objective Vital Signs Date Time Temp Pulse Resp B/P Pulse Ox O2 Delivery O2 Flow Rate FiO2 08/09/16 07:45 Room Air 08/09/16 07:26 36.5 84 20 108/74 95 Room Air 08/09/16 04:26 37.0 102 20 124/78 96 Room Air 08/09/16 04:00 CPAP 08/09/16 00:12 36.5 97 20 137/94 94 CPAP 08/09/16 00:00 CPAP 08/08/16 22:10 97 08/08/16 20:23 36.5 85 18 126/76 94 Room Air 08/08/16 20:00 Room Air 08/08/16 16:00 Room Air 08/08/16 15:06 36.7 83 22 134/81 94 08/08/16 12:42 36.5 67 22 115/75 97 Room Air 08/08/16 12:00 Room Air CPAP (Aurora Yee ., PALOMO-C) Physical Exam Notes: General appearance: + Morbidly obese. Well-developed, well-nourished, no apparent distress Head: Normocephalic, atraumatic Eyes: Normal inspection, PERRL, EOMI ENT: Normal ENT inspection, hearing grossly normal, pharynx normal Neck: Supple, no JVD, trachea midline Respiratory/Chest: Lungs clear to auscultation, normal breath sounds, no respiratory distress Cardiovascular: + Irregularly irregular, rate controlled during my exam. No gallop, no murmur Abdomen/GI: Normal bowel sounds, non-tender, soft Extremities/Musculoskeletal: + 2+ pitting edema bilaterally. Left lower leg/ anterior wood has dusky appearance. Red discoloration b/w 1st, 2nd, and 3rd toes of R foot and b/w 1st, 2nd, 3rd, and 4th toes of L foot extending to plantar surface of feet. Currently no drainage. Color appears slightly improved today. Non-tender. 2+ pulses R foot. Difficult to palpate pulses in left foot due to edema. No calf tenderness. Neurological/Psych: Alert, normal mood/affect, oriented x 3 Skin: Normal color, warm/dry, no rash (Aurora Yee ., PA-C) Laboratory Results Last 24 Hours Test 08/09/16 05:37 White Blood Count 6.53 K/uL Red Blood Count 5.14 M/uL Hemoglobin 16.4 g/dL Hematocrit 47.6 % Mean Corpuscular Volume 92.6 fL Mean Corpuscular Hemoglobin 31.9 pg Mean Corpuscular Hemoglobin Concent 34.5 g/dl RDW Standard Deviation 51.2 fL RDW Coefficient of Variation 15.1 % Platelet Count 160 K/uL Mean Platelet Volume 11.7 fL Activated Partial Thromboplast Time 51.1 SECONDS Partial Thromboplastin Ratio 2.0 Sodium Level 142 mmol/L Potassium Level 4.2 mmol/L Chloride Level 109 mmol/L Carbon Dioxide Level 26 mmol/L Anion Gap 7.0 mmol/L Blood Urea Nitrogen 18 mg/dl Creatinine 1.40 mg/dl Est Creatinine Clear Calc Drug Dose 76.2 ml/min Estimated GFR () 58.2 Estimated GFR (Non- 50.2 BUN/Creatinine Ratio 13.0 Random Glucose 106 mg/dl Calcium Level 8.3 mg/dl (Aurora Yee ., PA-C) Diagnostic Results Reviewed the following studies and agree with interpretation as follows: CT RLE: IMPRESSION: 1. Moderate arthritic changes within the forefoot with extensive subchondral cyst formation 2. Soft tissue edema 3. No evidence of osteomyelitis. CT LLE: IMPRESSION: 1. Soft tissue ulceration at the level of the first webspace 2. No evidence of abscess. No CT evidence of acute osteomyelitis. 3. Moderate degenerative/arthritic changes present within the midfoot with extensive subchondral cyst formation. CTA chest: IMPRESSION: 1. No evidence of thoracic aortic dissection 2. Mild dilatation of the ascending thoracic aorta which measures 45 mm. 2. No evidence of significant atheromatous plaque within the thoracic aorta. CTA abdomen: IMPRESSION: 1. No evidence of abdominal aortic aneurysm or dissection 2. No evidence of significant aortic plaquing 3. No evidence of celiac, superior mesenteric, or renal artery stenosis. Echo: * -- Conclusions -- * 1. Normal LV size. Mild concentric LVH. * 2. Normal LV systolic function. LVEF 55-60%. Abnormal septal motion consistent with conduction abnormality. * 3. Normal RV size and function. * 4. Severely dilated left atrium. * 5. Aortic sclerosis without stenois. * 6. Compared with prior study on 04/07/2010: * No significant changes. (Aurora Yee ., PAJosé LuisC) Assessment and Plan 70 y/o male with a history of paroxysmal afib, HTN, CKD stage III, hypothyroidism, and recent DVT who presents to the ED for red/purple discoloration of toes since (08/03). LLE venous ultrasound showed DVT of distal popliteal and posterior tibial vein, as well as in the popliteal vein branch, likely sural vein. LLE arterial ultrasound shows focal occlusion of dorsalis pedis artery. Embolic occlusion and DVT--stable -Admitted to telemetry. Patient remained in A. fib overnight with heart rate in the 90s -Hematology consulted, appreciate recs: Spoke with Dr. Carmona who consulted with Dr. Zheng. Recommend checking a ANNI to verify that there are no atrial thrombi before making further recs. Continue heparin for now. -ANNI ordered -Transthoracic echo: * -- Conclusions -- * 1. Normal LV size. Mild concentric LVH. * 2. Normal LV systolic function. LVEF 55-60%. Abnormal septal motion consistent with conduction abnormality. * 3. Normal RV size and function. * 4. Severely dilated left atrium. * 5. Aortic sclerosis without stenois. * 6. Compared with prior study on 04/07/2010: * No significant changes. -CT LLE shows soft tissue ulcer at 1st webspace, no osteomyelitis -CT RLE shows soft tissue edema -CTA chest shows mild dilation of ascending thoracic aorta (45 mm), no significant plaques -CTA abdomen negative for AAA or significant plaques -Immunology studies pending -Vascular surgery consulted, appreciate recs: Check for embolic sources with echo, CTA chest/abdomen. Recommend applying silvadene and dry dressings to feet and starting IV abx for overlying infection. Check plain CT of feet. -Continue heparin drip for now until further recs -HgbA1c 5.9 -Consult wound care nurse Paroxysmal afib--still in afib, now rate controlled -Continue to monitor on tele -Continue metoprolol succinate 100 mg PO qd -Heparin, Coumadin held for now CKD stage III--stable. Baseline creatinine 1.2-1.4 per hospital records -Creatinine 1.5 on arrival -IVF NSS at 100 cc/hr x 3L -Creatinine remains stable at 1.4 on 08/09 Hypothyroidism -Continue Synthroid 50 mcg PO qd DVT prophylaxis -Heparin drip Code Status -Level I, FULL RESUSCITATION STATUS (Aurora Yee ., PA-C) I agree with PA assessment and plan and have personally seen and examined pt myself Resting comfortably in bed Reviewed labs and imaging Unremarkable Appreciate recs from Heme/Onc and Dr Zheng and vascualr surgery Cont heparin at this time ?arterial source, will get ANNI Cont to monitor (Lewis Weiner, D.O.)
--- NOTE | 2016-08-09 12:16 | Medical Student: [facility] ---
Med Student Progress Note Date of Service August 09, 2016. Subjective Pt evaluation today including: conversation w/ patient, physical exam, chart review, lab review, review of studies, review of inpatient medication list Pain: none PO Intake: Normal diet Voiding: no voiding problems No acute events overnight. Mr. Rachel reports decreased wound margins and decrased swelling of both the left and right foot. Clear fluid "oozing" from the wounds persists. No reported pain. No change in b/l lower leg swelling; although level of edema is consistent with pre-hospitalization status according to Mr. Rachel. He denies fever, chills, and nausea. Review of Systems Constitutional: No chills, No fever Objective Vital Signs Date Time Temp Pulse Resp B/P Pulse Ox O2 Delivery O2 Flow Rate FiO2 08/09/16 11:35 36.6 64 19 137/70 95 Room Air 08/09/16 07:45 Room Air 08/09/16 07:26 36.5 84 20 108/74 95 Room Air 08/09/16 04:26 37.0 102 20 124/78 96 Room Air 08/09/16 04:00 CPAP 08/09/16 00:12 36.5 97 20 137/94 94 CPAP 08/09/16 00:00 CPAP 08/08/16 22:10 97 08/08/16 20:23 36.5 85 18 126/76 94 Room Air 08/08/16 20:00 Room Air 08/08/16 16:00 Room Air 08/08/16 15:06 36.7 83 22 134/81 94 08/08/16 12:42 36.5 67 22 115/75 97 Room Air 08/08/16 12:00 Room Air CPAP Physical Exam General Appearance: WD/WN, no apparent distress, + obese (BMI: 41.8 kg/m2) Eyes: bilateral eyes EOMI, bilateral eyes PERRL, bilateral eyes normal inspection ENT: normal ENT inspection Neck: thyroid normal Respiratory/Chest: chest non-tender, lungs clear, normal breath sounds, no respiratory distress Abdomen: normal bowel sounds Extremities: + pedal edema (b/l edema in the feet), + swelling (b/l leg swelling) Neurologic/Psychiatric: alert, normal mood/affect, oriented x 3 Skin: + pertinent finding (b/l wound margins of the feet have decreased; left foot worse than right foot) Laboratory Results Last 24 Hours Test 08/09/16 05:37 White Blood Count 6.53 K/uL Red Blood Count 5.14 M/uL Hemoglobin 16.4 g/dL Hematocrit 47.6 % Mean Corpuscular Volume 92.6 fL Mean Corpuscular Hemoglobin 31.9 pg Mean Corpuscular Hemoglobin Concent 34.5 g/dl RDW Standard Deviation 51.2 fL RDW Coefficient of Variation 15.1 % Platelet Count 160 K/uL Mean Platelet Volume 11.7 fL Activated Partial Thromboplast Time 51.1 SECONDS Partial Thromboplastin Ratio 2.0 Sodium Level 142 mmol/L Potassium Level 4.2 mmol/L Chloride Level 109 mmol/L Carbon Dioxide Level 26 mmol/L Anion Gap 7.0 mmol/L Blood Urea Nitrogen 18 mg/dl Creatinine 1.40 mg/dl Est Creatinine Clear Calc Drug Dose 76.2 ml/min Estimated GFR () 58.2 Estimated GFR (Non- 50.2 BUN/Creatinine Ratio 13.0 Random Glucose 106 mg/dl Calcium Level 8.3 mg/dl Assessment and Plan Assessment and Plan: Mr. Rachel is a 70y/o male with a past medical history of atrial fibrillation, DVT, HTN, CKD, and hypothyroidism. left leg DVT; b/l wounds and swelling of feet; leg swelling and discoloration: The wound margins and swelling of his left foot and right foot have decreased. "Oozing" of clear fluid from the wounds persists. b/l lower leg swelling is stable and discoloration has improved. The etiology of the b/l foot wounds and leg discoloration has not been determined-- are this wounds due to blue toe syndrome vs. DVT vs. poor lower extremity circulation/superficial infection. Foot wounds are b/l, but DVT is only present in left leg. Continue heparin drip. Continue to monitor the wounds and leg discoloration; circulation to lower extremities may improve with continued anticoagulation. hypothyroidism: continue levothyroxine sodium 50mcg PO daily; order TSH, T4 and evaluate whether an increase is needed. Intermittent atrial fibrillation: continue metoprolol succinate 100mg PO daily. HTN: continue losartan potassium 100mg PO daily. CKD stage 3: stable-- estimated GFR of 50.2mL/min; Cr stable at 1.4mg/dL ( baseline of 1.4mg/dL dating back to 2006).
--- NOTE | 2016-08-09 13:29 | Progress Note ---
Progress Note Date of Service: August 09, 2016. Subjective No complaints Problem List Medical Problems: (1) Arterial occlusion Status: Acute (2) DVT (deep venous thrombosis) Status: Acute Objective Vital Signs Vital Signs Past 12 Hours Date Time Temp Pulse Resp B/P Pulse Ox O2 Delivery O2 Flow Rate FiO2 08/09/16 11:35 36.6 64 19 137/70 95 Room Air 08/09/16 11:30 Room Air 08/09/16 07:45 Room Air 08/09/16 07:26 36.5 84 20 108/74 95 Room Air 08/09/16 04:26 37.0 102 20 124/78 96 Room Air 08/09/16 04:00 CPAP Exam Awake and alert VSS Both feet look slightly improved Palpable pulses bilaterally Intake & Output 8-Hour Column 08/08/16 08/09/16 08/09/16 16:00 00:00 08:00 Intake Total 270 ml 2894 ml 1418 ml Output Total 300 ml 1500 ml Balance 270 ml 2594 ml -82 ml 24-Hour Column 08/09/16 08:00 Intake Total 4582 ml Output Total 1800 ml Balance 2782 ml Laboratory and Microbiology Results Past 24 Hours Test 08/09/16 05:37 Range/Units White Blood Count 6.53 4.8-10.8 K/uL Red Blood Count 5.14 4.7-6.1 M/uL Hemoglobin 16.4 14.0-18.0 g/dL Hematocrit 47.6 42-52 % Mean Corpuscular Volume 92.6 80-100 fL Mean Corpuscular Hemoglobin 31.9 25-34 pg Mean Corpuscular Hemoglobin Concent 34.5 32-36 g/dl RDW Standard Deviation 51.2 36.4-46.3 fL RDW Coefficient of Variation 15.1 11.5-14.5 % Platelet Count 160 130-400 K/uL Mean Platelet Volume 11.7 7.4-10.4 fL Activated Partial Thromboplast Time 51.1 21.0-31.0 SECONDS Partial Thromboplastin Ratio 2.0 Sodium Level 142 136-145 mmol/L Potassium Level 4.2 3.5-5.1 mmol/L Chloride Level 109 98-107 mmol/L Carbon Dioxide Level 26 21-32 mmol/L Anion Gap 7.0 3-11 mmol/L Blood Urea Nitrogen 18 7-18 mg/dl Creatinine 1.40 0.60-1.40 mg/dl Est Creatinine Clear Calc Drug Dose 76.2 ml/min Estimated GFR () 58.2 Estimated GFR (Non- 50.2 BUN/Creatinine Ratio 13.0 10-20 Random Glucose 106 70-99 mg/dl Calcium Level 8.3 8.5-10.1 mg/dl Imp: Ulcers both feet Plan: Doubt there is a source of arterial embolization. This may be a primary foot problem as his claimed she noticed wet chaidez on the bed for a while before this admission. He is
--- NOTE | 2016-08-09 15:57 | Hematology/Oncology Prog Note ---
Hematology/Onc Progress Note Date of Service August 09, 2016. Diagnoses DVT Arterial thromboembolism Atrial fibrillation Medications Medications Administered Medications (Trade) Dose Ordered Sig/Karen Route Start Time Stop Time Status Last Admin Dose Admin Sodium Chloride (Nss 1000ml) 1,000 ml @ 100 mls/hr Q10H IV 08/07/16 17:13 08/08/16 23:12 DC 08/08/16 21:20 100 MLS/HR Heparin Sodium/ Dextrose 1 ea Q15M N/A 08/07/16 17:55 08/07/16 18:33 DC 08/07/16 18:07 1 EA Allopurinol (Zyloprim Tab) 300 mg DAILY PO 08/08/16 09:00 09/07/16 08:59 08/09/16 09:13 300 MG Levothyroxine Sodium (Synthroid Tab) 50 mcg DAILYBB PO 08/08/16 06:30 09/07/16 06:29 08/09/16 06:06 50 MCG Losartan Potassium (coZAAR TAB) 100 mg DAILY PO 08/08/16 09:00 09/07/16 08:59 08/09/16 09:14 100 MG Metoprolol Succinate (Toprol Xl Tab) 100 mg DAILY PO 08/08/16 09:00 09/07/16 08:59 08/09/16 09:14 100 MG Heparin Sodium/ Dextrose (Heparin 25,000 Unit/500ml D5W) 25,000 unit STK-MED ONCE .ROUTE 08/07/16 18:01 08/07/16 18:02 DC 08/07/16 18:06 25,000 UNIT Heparin Sodium (Porcine) 92255 unit 10,000 unit STK-MED ONCE .ROUTE 08/07/16 18:01 08/07/16 18:02 DC 08/07/16 18:07 9,000 UNIT Heparin Sodium/ Dextrose 500 ml @ 32 mls/hr [id number] PRN IV 08/07/16 18:45 09/06/16 18:44 08/09/16 15:36 32 MLS/HR Cefazolin Sodium/ Dextrose (Ancef Iv/D5 50ml) 60 ml @ 100 mls/hr Q8H IV 08/08/16 14:30 08/18/16 13:44 08/09/16 14:18 100 MLS/HR Silver Sulfadiazine 1 appln 1 appln DAILY EXT 5/17/17 09:00 09/08/16 08:59 08/09/16 10:25 1 APPLN Sodium Chloride (Nss 1000ml) 1,000 ml @ 150 mls/hr Q6H40M IV 08/08/16 13:33 08/08/16 22:18 DC 08/08/16 14:26 150 MLS/HR Subjective Mr. Rachel is seated comfortably in bed. He has no particular complaints. His foot seems to be improving with wound care, including topical and systemic antibiotics. Vascular surgery is optimistic he will not lose his toe. Review of Systems: Constitutional: No chills, No fever Eyes: No worsening of vision ENT: No unusual epistaxis Respiratory: No cough, No hemoptysis Cardiovascular: No chest pain Abdomen: No GI bleeding, No pain Musculoskeletal: + swelling, No calf pain Male : No hematuria Neurologic: No numbness/tingling, No weakness Heme: + clotting problems Skin: No rash Vital Signs Vital Signs Past 12 Hours Date Time Temp Pulse Resp B/P Pulse Ox O2 Delivery O2 Flow Rate FiO2 08/09/16 15:24 36.8 73 18 113/72 93 Room Air 08/09/16 11:35 36.6 64 19 137/70 95 Room Air 08/09/16 11:30 Room Air 08/09/16 07:45 Room Air 08/09/16 07:26 36.5 84 20 108/74 95 Room Air 08/09/16 04:26 37.0 102 20 124/78 96 Room Air 08/09/16 04:00 CPAP Physical Exam Constitutional: General Apperance: heathly-appearing Level of Distress: NAD Psychiatric: Mental Status: active & alert Orientation: oriented except where noted Lungs: Respiratory Effort: no dyspnea Auscuitation: breath sounds normal Cardiovascular: Heart Auscultation: pertinent finding (irregularly irregular) Abdomen: Inspection & Palpation: soft, no tenderness, guarding & rebound Extremities: pertinent finding (bilateral edema in both feet, L>R. Both feet are bandaged.) Laboratory Last 24 Hours Test 08/09/16 05:37 White Blood Count 6.53 K/uL Red Blood Count 5.14 M/uL Hemoglobin 16.4 g/dL Hematocrit 47.6 % Mean Corpuscular Volume 92.6 fL Mean Corpuscular Hemoglobin 31.9 pg Mean Corpuscular Hemoglobin Concent 34.5 g/dl RDW Standard Deviation 51.2 fL RDW Coefficient of Variation 15.1 % Platelet Count 160 K/uL Mean Platelet Volume 11.7 fL Activated Partial Thromboplast Time 51.1 SECONDS Partial Thromboplastin Ratio 2.0 Sodium Level 142 mmol/L Potassium Level 4.2 mmol/L Chloride Level 109 mmol/L Carbon Dioxide Level 26 mmol/L Anion Gap 7.0 mmol/L Blood Urea Nitrogen 18 mg/dl Creatinine 1.40 mg/dl Est Creatinine Clear Calc Drug Dose 76.2 ml/min Estimated GFR () 58.2 Estimated GFR (Non- 50.2 BUN/Creatinine Ratio 13.0 Random Glucose 106 mg/dl Calcium Level 8.3 mg/dl Assessment & Plan His transthoracic echocardiogram revealed no evidence of an atrial thrombus. His CTs also revealed no evidence of vascular aneurysms or other etiologies for his embolism. A negative TTE does not necessarily rule out the presence of an atrial thrombus or a vegetation, however; transesophageal echocardiography is both more sensitive and specific. Given a lack of other obvious explanations for why he has an arterial thromboembolism, I think a ANNI would be reasonable. His antiphospholipid antibodies are pending. Other testing for a lupus anticoagulant, like a DRVVT, would not be reliable while on heparin. There is also no specific test for warfarin skin necrosis. We will await the results of his ongoing workup before speculating further about an etiology. In the meantime , he should remain on a heparin drip.
[2016-08-10] VITALS (13 sets, daily range): BP systolic 95–150; BP diastolic 60–87; PULSE 76–123; TEMP 36.3–36.6; O2SAT 92–96
[2016-08-10] MEDS: LEVOTHYROXINE 50 MCG TAB PO SCH (06:06)
[2016-08-10] MEDS: CEFAZOLIN IV 2,000 MG in DEXTROSE 5% 50ML 50 ML IV SCH ×2 (06:06→14:14)
[2016-08-10 06:52] LABS: HEMATOCRIT 48.5 % (42-52); MEAN CELL VOLUME 92.2 fL (80-100); MEAN CORPUSCULAR HEMOGLOBIN 31.4 pg (25-34); MEAN PLATELET VOLUME 11.5 fL (7.4-10.4); PLATELET COUNT 174 K/uL (130-400); RED BLOOD COUNT 5.26 M/uL (4.7-6.1); WHITE BLOOD COUNT 7.22 K/uL (4.8-10.8)
[2016-08-10 07:05] LABS: PARTIAL THROMBOPLASTIN RATIO 1.7
[2016-08-10 07:25] LABS: BUN/CREATININE RATIO 10.8 (10-20); CALCIUM 8.8 mg/dl (8.5-10.1); CREATININE 1.5 mg/dl (0.60-1.40); POTASSIUM 4.1 mmol/L (3.5-5.1)
[2016-08-10] MEDS ORDERED: HEPARIN IV BOLUS 4,000 UNIT in SYRINGE 0 ML IV ONE (08:00)
[2016-08-10] MEDS: HEPARIN 25,000 UNIT/500ML D5W 500 ML IV PRN (08:40)
[2016-08-10] MEDS: SILVER SULFADIAZINE 1% CR 50 GM JAR EXT SCH (09:00)
[2016-08-10] MEDS ORDERED: KETAMINE HCL INJ 50 MG/ML 10 ML VIAL ONE (09:27)
[2016-08-10] MEDS ORDERED: MIDAZOLAM HCL 1 MG/ML 2ML VIAL ONE (09:27)
[2016-08-10] MEDS ORDERED: PROPOFOL IV EMULSION 10 MG/ML 20 ML VIAL IV ONE (10:23)
[2016-08-10] MEDS ORDERED: LIDOCAINE HCL 2% 2 ML VIAL (20MG/ML) ONE (10:23)
[2016-08-10] MEDS ORDERED: PHENYLEPHRINE 100MCG/ML 5ML SYR ONE (10:23)
[2016-08-10] MEDS: METOPROLOL SUCC 50MG EXT REL TAB PO SCH (12:13)
[2016-08-10] MEDS: LOSARTAN POTASSIUM 50 MG TAB PO SCH (12:14)
[2016-08-10] MEDS: ALLOPURINOL 300 MG TAB PO SCH (12:14)
[2016-08-10 13:12] LABS: INR 1.2 (0.9-1.1); PARTIAL THROMBOPLASTIN RATIO 2.3; PROTHROMBIN TIME (PATIENT) 12.7 SECONDS (9.0-12.0)
--- NOTE | 2016-08-10 13:29 | TEE ---
*NOTICE TO RECEIVING [employer]PUBL[employer] AGENCY This information is strictly Confidential and protected under [place] law. [place] law prohibits you from making any further disclosure of this information unless further disclosure is expressly permitted by the written consent of the person to whom it pertains or is authorized by law. A general authorization for the release of medical or other information is not sufficient for this purpose. Hospital accepts no responsibility if the information is made available to any other person, INCLUDING THE PATIENT. Interpretation Summary * Name: ANNAMARIE LARSEN Study Date: 08/10/2016 09:45 AM BP: 150/84 mmHg * Patient Location: [facility]\S\N284\S\1 HR: 82 * : 1945 (M/d/yyyy) Gender: Male Height: 75 in * Age: 70 yrs Ethnicity: [place] Weight: 334 lb * Ordering Physician: Aurora Yee * Referring Physician: Self, Referred * Performed By: Zarina Butt RDCS * * Reason For Study: Assess for LV thrombus * BSA: 2.7 m2 * -- Conclusions -- * 1. Normal LV size, wall thickness and function. LVEF 55-60%. * 2. Mildly dilated RV with normal function. * 3. Mild aortic sclerosis, trace MR. * 4. No intracardiac thrombus or masses indentified * 5. Patent foramen ovale with left to right shunt by color doppler and positive saline contrast study for right to left shunting. * 6. Dilated ascending aorta (4.6 cm). Procedure Details * The transesophageal portion of this study was personally supervised by the undersigned interpreting physician. * ANNI Probe #2 utilized for procedure. * The study was performed in Cardiac Catheterization Lab. * Time out was conducted by the physician, nurse, and cell technician with positive identification of patient and procedure. * Informed consent for Transesophageal Echocardiogram was obtained prior to the procedure. * An intravenous line was placed. A topical anesthetic agent was used for oropharangeal anesthesia. A bite block was inserted. * Sedation performed by the anesthesia department. * The patient's vital signs, including blood pressure, heart rate, pulse oximetry and cardiac rhythm were monitored throughout the procedure . * The posterior oropharynx was anesthetized using a topical anesthetic spray. A bite guard was inserted. * A multifrequency, multiplane transesopheageal echocardiographic endoscope was inserted and manipulated in the standard fashion to achieve multiplane views. * The transesophageal probe was passed without difficulty. * The usual views were obtained; basal, mid-esophageal, transgastric and aortic views. * The patient tolerated the procedure well without evidence of orophangeal or esophageal trauma. * A 2D transesophageal echocardiogram with spectral and color flow Doppler was performed. * Contrast injection with agitated saline was performed. * A 2D transesophageal echocardiogram with Doppler and color flow Doppler was performed. Left Ventricle * The left ventricle is grossly normal size. * There is normal left ventricular wall thickness. * Ejection Fraction = 55-60%. * No regional wall motion abnormalities noted. Right Ventricle * The right ventricle is mildly dilated. * The right ventricular systolic function is qualitatively normal. Atria * The left atrium is moderately dilated. * No left atrial mass or thrombus visualized. * No thrombus is detected in the left atrial appendage. * The right atrium is mildly dilated. * Doppler suggests left to right interatrial shunt. * Injection of contrast documented an interatrial shunt. * A patent foramen ovale is present. Mitral Valve * There is trace mitral regurgitation. Tricuspid Valve * The tricuspid valve is not well visualized, but is grossly normal. * No tricuspid regurgitation. Aortic Valve * Aortic valve sclerosis mild, without significant aortic valvular stenosis. * The aortic valve is trileaflet. * No hemodynamically significant valvular aortic stenosis. * There is no significant aortic regurgitation. Pulmonic Valve * The pulmonic valve is not well visualized. * There is no significant pulmonary regurgitation. Great Vessels * Mildly dilated ascending aorta. * Ascending aorta 4.6 cm
--- NOTE | 2016-08-10 13:49 | Hospitalist Progress Note ---
Hospitalist Progress Note Date of Service August 10, 2016. Subjective Pt evaluation today including: conversation w/ patient, conversation w/ family , chart review, lab review, review of studies, conversation w/ salon sales consultant ( spoke with Dr. Carmona), review of inpatient medication list Pain: None PO Intake: Tolerating PO diet Voiding: no voiding problems Patient reports feeling well. He denies any pain, numbness or tingling in his toes bilaterally. He states that he tolerated the ANNI well. The patient denies fevers, chills, sweats, chest pain, palpitations, claudication, cough, wheezing, shortness of breath, nausea, vomiting, abdominal pain, dysuria, hematuria, urinary retention, paralysis, weakness, numbness and tingling. Additional Comments: See HPI for pertinent positives and negatives. All other systems reviewed and negative. Objective Vital Signs Date Time Temp Pulse Resp B/P Pulse Ox O2 Delivery O2 Flow Rate FiO2 08/10/16 12:00 96 Room Air 08/10/16 11:28 36.3 76 20 125/81 95 Room Air 08/10/16 10:46 72 16 129/72 95 Room Air 08/10/16 10:26 80 16 106/71 94 Room Air 08/10/16 10:23 94 16 97/60 94 Nasal Cannula 6 08/10/16 10:17 97 16 95/63 94 Nasal Cannula 6 08/10/16 10:12 87 16 114/67 94 Nasal Cannula 6 08/10/16 10:12 89 16 94/64 94 Nasal Cannula 6 08/10/16 10:07 87 16 99/68 92 Nasal Cannula 6 08/10/16 10:07 86 16 99/68 92 Nasal Cannula 6 08/10/16 10:02 85 16 99/68 92 Nasal Cannula 6 08/10/16 10:02 96 16 107/73 92 Nasal Cannula 6 08/10/16 09:57 82 16 150/84 95 Nasal Cannula 4 08/10/16 09:57 92 16 105/67 92 Nasal Cannula 6 08/10/16 08:00 96 Room Air 08/10/16 06:59 36.5 123 18 124/76 96 Room Air 08/10/16 04:00 Room Air CPAP 08/10/16 03:54 36.3 92 20 130/87 95 CPAP 08/10/16 00:00 Room Air CPAP 08/09/16 23:53 36.7 79 20 114/74 93 Room Air 08/09/16 23:11 90 97 08/09/16 20:00 36.7 79 18 118/75 96 Room Air 08/09/16 20:00 Room Air 08/09/16 16:00 Room Air 08/09/16 15:24 36.8 73 18 113/72 93 Room Air Physical Exam Notes: General appearance: + Morbidly obese. Well-developed, well-nourished, no apparent distress Head: Normocephalic, atraumatic Eyes: Normal inspection, PERRL, EOMI ENT: Normal ENT inspection, hearing grossly normal, pharynx normal Neck: Supple, no JVD, trachea midline Respiratory/Chest: Lungs clear to auscultation, normal breath sounds, no respiratory distress Cardiovascular: + Irregularly irregular, rate controlled during my exam. No gallop, no murmur Abdomen/GI: Normal bowel sounds, non-tender, soft Extremities/Musculoskeletal: + 2+ pitting edema bilaterally. Left lower leg/ anterior wood has dusky appearance. Red discoloration b/w 1st, 2nd, and 3rd toes of R foot and b/w 1st, 2nd, 3rd, and 4th toes of L foot extending to plantar surface of feet appears improved. Currently no drainage. Non-tender. 2+ pulses R foot. Difficult to palpate pulses in left foot due to edema. No calf tenderness. Neurological/Psych: Alert, normal mood/affect, oriented x 3 Skin: Normal color, warm/dry, no rash Laboratory Results Last 24 Hours Test 08/10/16 06:34 08/10/16 12:42 White Blood Count 7.22 K/uL Red Blood Count 5.26 M/uL Hemoglobin 16.5 g/dL Hematocrit 48.5 % Mean Corpuscular Volume 92.2 fL Mean Corpuscular Hemoglobin 31.4 pg Mean Corpuscular Hemoglobin Concent 34.0 g/dl RDW Standard Deviation 50.4 fL RDW Coefficient of Variation 14.9 % Platelet Count 174 K/uL Mean Platelet Volume 11.5 fL Activated Partial Thromboplast Time 45.0 SECONDS 59.0 SECONDS Partial Thromboplastin Ratio 1.7 2.3 Sodium Level 139 mmol/L Potassium Level 4.1 mmol/L Chloride Level 108 mmol/L Carbon Dioxide Level 23 mmol/L Anion Gap 8.0 mmol/L Blood Urea Nitrogen 16 mg/dl Creatinine 1.50 mg/dl Est Creatinine Clear Calc Drug Dose 71.0 ml/min Estimated GFR () 53.5 Estimated GFR (Non- 46.2 BUN/Creatinine Ratio 10.8 Random Glucose 113 mg/dl Calcium Level 8.8 mg/dl Prothrombin Time 12.7 SECONDS Prothromb Time International Ratio 1.2 Diagnostic Results Transesophageal echocardiogram: * -- Conclusions -- * 1. Normal LV size, wall thickness and function. LVEF 55-60%. * 2. Mildly dilated RV with normal function. * 3. Mild aortic sclerosis, trace MR. * 4. No intracardiac thrombus or masses indentified * 5. Patent foramen ovale with left to right shunt by color doppler and positive saline contrast study for right to left shunting. * 6. Dilated ascending aorta (4.6 cm). Assessment and Plan 70 y/o male with a history of paroxysmal afib, HTN, CKD stage III, hypothyroidism, and recent DVT who presents to the ED for red/purple discoloration of toes since (08/03). LLE venous ultrasound showed DVT of distal popliteal and posterior tibial vein, as well as in the popliteal vein branch, likely sural vein. LLE arterial ultrasound shows focal occlusion of dorsalis pedis artery. Embolic occlusion and DVT--stable -Admitted to telemetry. Patient remained in A. fib overnight with heart rate in the 70s to 80s but with spikes up to 130s -Hematology consulted, appreciate recs: Spoke with Dr. Carmona on the phone after ANNI results came back. Would like to keep pt and keep heparin drip for now. -Transesophageal echo: * -- Conclusions -- * 1. Normal LV size, wall thickness and function. LVEF 55-60%. * 2. Mildly dilated RV with normal function. * 3. Mild aortic sclerosis, trace MR. * 4. No intracardiac thrombus or masses indentified * 5. Patent foramen ovale with left to right shunt by color doppler and positive saline contrast study for right to left shunting. * 6. Dilated ascending aorta (4.6 cm). -Transthoracic echo: * -- Conclusions -- * 1. Normal LV size. Mild concentric LVH. * 2. Normal LV systolic function. LVEF 55-60%. Abnormal septal motion consistent with conduction abnormality. * 3. Normal RV size and function. * 4. Severely dilated left atrium. * 5. Aortic sclerosis without stenois. * 6. Compared with prior study on 04/07/2010: * No significant changes. -CT LLE shows soft tissue ulcer at 1st webspace, no osteomyelitis -CT RLE shows soft tissue edema -CTA chest shows mild dilation of ascending thoracic aorta (45 mm), no significant plaques -CTA abdomen negative for AAA or significant plaques -Immunology studies pending -Vascular surgery consulted, appreciate recs: no intervention, doubt there is an embolic source -Continue heparin drip for now until further recs -HgbA1c 5.9 -Consult wound care nurse Paroxysmal afib--still in afib, now rate controlled -Continue to monitor on tele -Continue metoprolol succinate 100 mg PO qd -Heparin, Coumadin held for now CKD stage III--stable. Baseline creatinine 1.2-1.4 per hospital records -Creatinine 1.5 on arrival -IVF NSS at 100 cc/hr x 3L -Creatinine remains stable at 1.5 on 08/10 Hypothyroidism -Continue Synthroid 50 mcg PO qd DVT prophylaxis -Heparin drip Code Status -Level I, FULL RESUSCITATION STATUS
--- NOTE | 2016-08-10 14:09 | Anticoagulation Clinic ---
Anticoagulation Progress Note Results of studies reviewed. Asked by Dr. Carmona to provide instructions for dosing prior to return to anticoagulation clinic. Patient should take enoxaparin 150 mg twice daily (BID) until his return to anticoagulation clinic. Additionally, he should take 20 mg of warfarin today and tomorrow, and 10 mg of warfarin Sunday and Sunday. He has an appointment in the clinic scheduled for 2:30 Sunday (only time available). Please have him contact the anticoagulation clinic with questions.
--- NOTE | 2016-08-10 14:19 | Hematology/Oncology Prog Note ---
Hematology/Onc Progress Note Date of Service August 10, 2016. Diagnoses DVT Arterial thromboembolism Atrial fibrillation Medications Medications Administered Medications (Trade) Dose Ordered Sig/Karen Route Start Time Stop Time Status Last Admin Dose Admin Sodium Chloride (Nss 1000ml) 1,000 ml @ 100 mls/hr Q10H IV 08/07/16 17:13 08/08/16 23:12 DC 08/08/16 21:20 100 MLS/HR Heparin Sodium/ Dextrose 1 ea Q15M N/A 08/07/16 17:55 08/07/16 18:33 DC 08/07/16 18:07 1 EA Allopurinol (Zyloprim Tab) 300 mg DAILY PO 08/08/16 09:00 09/07/16 08:59 08/10/16 12:14 300 MG Levothyroxine Sodium (Synthroid Tab) 50 mcg DAILYBB PO 08/08/16 06:30 09/07/16 06:29 08/10/16 06:06 50 MCG Losartan Potassium (coZAAR TAB) 100 mg DAILY PO 08/08/16 09:00 09/07/16 08:59 08/10/16 12:14 100 MG Metoprolol Succinate (Toprol Xl Tab) 100 mg DAILY PO 08/08/16 09:00 09/07/16 08:59 08/10/16 12:13 100 MG Heparin Sodium/ Dextrose (Heparin 25,000 Unit/500ml D5W) 25,000 unit STK-MED ONCE .ROUTE 08/07/16 18:01 08/07/16 18:02 DC 08/07/16 18:06 25,000 UNIT Heparin Sodium (Porcine) 46164 unit 10,000 unit STK-MED ONCE .ROUTE 08/07/16 18:01 08/07/16 18:02 DC 08/07/16 18:07 9,000 UNIT Heparin Sodium/ Dextrose 500 ml @ 36 mls/hr [id number] PRN IV 08/07/16 18:45 09/06/16 18:44 08/10/16 08:40 36 MLS/HR Cefazolin Sodium/ Dextrose (Ancef Iv/D5 50ml) 60 ml @ 100 mls/hr Q8H IV 08/08/16 14:30 08/18/16 13:44 08/10/16 06:06 100 MLS/HR Silver Sulfadiazine 1 appln 1 appln DAILY EXT 5/17/17 09:00 09/08/16 08:59 08/10/16 09:00 1 APPLN Sodium Chloride 1,000 ml @ 150 mls/hr Q6H40M IV 08/08/16 13:33 08/08/16 22:18 DC 08/08/16 14:26 150 MLS/HR Heparin Sodium (Porcine)/Syringe (Heparin Iv Bolus/Syringe) 4 ml @ 10 mls/min 0800 ONCE IV 08/10/16 08:00 08/10/16 08:01 DC 08/10/16 08:00 10 MLS/MIN Subjective Mr. Rachel is seated comfortably in bed. He continues to feel well, with no severe pain or other complaints. Review of Systems: Constitutional: No chills, No fever ENT: No unusual epistaxis Respiratory: No cough, No hemoptysis Cardiovascular: No chest pain Abdomen: No GI bleeding, No nausea, No pain Musculoskeletal: No calf pain, No joint pain Male : No dysuria, No hematuria Heme: + clotting problems, No abnormal bleeding/bruising Skin: No rash Vital Signs Vital Signs Past 12 Hours Date Time Temp Pulse Resp B/P Pulse Ox O2 Delivery O2 Flow Rate FiO2 08/10/16 12:00 96 Room Air 08/10/16 11:28 36.3 76 20 125/81 95 Room Air 08/10/16 10:46 72 16 129/72 95 Room Air 08/10/16 10:26 80 16 106/71 94 Room Air 08/10/16 10:23 94 16 97/60 94 Nasal Cannula 6 08/10/16 10:17 97 16 95/63 94 Nasal Cannula 6 08/10/16 10:12 87 16 114/67 94 Nasal Cannula 6 08/10/16 10:12 89 16 94/64 94 Nasal Cannula 6 08/10/16 10:07 87 16 99/68 92 Nasal Cannula 6 08/10/16 10:07 86 16 99/68 92 Nasal Cannula 6 08/10/16 10:02 85 16 99/68 92 Nasal Cannula 6 08/10/16 10:02 96 16 107/73 92 Nasal Cannula 6 08/10/16 09:57 82 16 150/84 95 Nasal Cannula 4 08/10/16 09:57 92 16 105/67 92 Nasal Cannula 6 08/10/16 08:00 96 Room Air 08/10/16 06:59 36.5 123 18 124/76 96 Room Air 08/10/16 04:00 Room Air CPAP 08/10/16 03:54 36.3 92 20 130/87 95 CPAP Physical Exam Constitutional: General Apperance: heathly-appearing Level of Distress: NAD Psychiatric: Mental Status: active & alert Orientation: oriented except where noted Lungs: Respiratory Effort: no dyspnea Auscuitation: breath sounds normal Cardiovascular: Heart Auscultation: pertinent finding (irregularly irregular) Abdomen: Inspection & Palpation: soft, no tenderness, guarding & rebound Extremities: pertinent finding (bilateral edema in both feet, L>R. Both feet are bandaged.) Laboratory Last 24 Hours Test 08/10/16 06:34 08/10/16 12:42 White Blood Count 7.22 K/uL Red Blood Count 5.26 M/uL Hemoglobin 16.5 g/dL Hematocrit 48.5 % Mean Corpuscular Volume 92.2 fL Mean Corpuscular Hemoglobin 31.4 pg Mean Corpuscular Hemoglobin Concent 34.0 g/dl RDW Standard Deviation 50.4 fL RDW Coefficient of Variation 14.9 % Platelet Count 174 K/uL Mean Platelet Volume 11.5 fL Activated Partial Thromboplast Time 45.0 SECONDS 59.0 SECONDS Partial Thromboplastin Ratio 1.7 2.3 Sodium Level 139 mmol/L Potassium Level 4.1 mmol/L Chloride Level 108 mmol/L Carbon Dioxide Level 23 mmol/L Anion Gap 8.0 mmol/L Blood Urea Nitrogen 16 mg/dl Creatinine 1.50 mg/dl Est Creatinine Clear Calc Drug Dose 71.0 ml/min Estimated GFR () 53.5 Estimated GFR (Non- 46.2 BUN/Creatinine Ratio 10.8 Random Glucose 113 mg/dl Calcium Level 8.8 mg/dl Prothrombin Time 12.7 SECONDS Prothromb Time International Ratio 1.2 Assessment & Plan His ANNI confirmed the presence of a PFO with a right to left shunt. Thus, his arterial thrombus is likely a paradoxical embolism from his DVT. We will follow up the results of his antiphospholipid antibodies, though the likelihood of positivity is low. I reviewed his case with Dr. Zheng and she recommends resuming coumadin at 20 mg for the next two days, followed by restarting the 10 mg tabs he was on previously. He should also resume Lovenox 150 mg BID and continue it until he sees her next Sunday. He also apparently has an appointment with his laboratory assistant next week and can discuss what, if anything, needs to be done regarding his PFO. I will set him up with a visit with me at some point in the next few weeks.
[2016-08-10] MEDS ORDERED: SSDCR50 EXT (14:28)
[2016-08-10] MEDS ORDERED: CEPH500C PO (14:28)
[2016-08-10] MEDS ORDERED: WARF10TA4 PO (14:28)
[2016-08-10] MEDS ORDERED: LVNIS150 SC (14:28)
--- NOTE | 2016-08-10 14:44 | Discharge Instructions ---
Discharge Instructions Date of Service August 10, 2016. Admission Reason for Admission: Deep Venous Thrombosis Discharge Discharge Diagnosis / Problem: Deep venous thrombosis, arterial thrombosis Discharge Goals Goal(s): Decrease discomfort, Improve function, Diagnostic testing, Therapeutic intervention Activity Recommendations Activity Limitations: resume your previous activity . Instructions / Follow-Up Instructions / Follow-Up You were admitted with both venous and arterial occlusions/thrombosis. You were worked up to find a source of this, including echocardiograms and CT of the chest and abdomen. There was no obvious source of the clots found, however the echo did find a patent foramen ovale (PFO) which could have contributed. There are still immunological studies that are pending to assess for antiphospholipid antibody syndrome, which is a disease that can cause clotting. Medications: *You will need to bridge your Coumadin with Lovenox. Please take Lovenox 150 mg subcutaneously twice a day for a total of 5 days. This prescription has been sent to your pharmacy, but they will have to order this as they do not have it in stock. Please take the left over Lovenox injections you have at home twice a day until this new prescription comes in. *Take Coumadin 20 mg by mouth for 2 days, then switch back to your home dose of 10 mg daily. *Take Keflex 500 mg by mouth twice a day for 7 days. *You may apply Silvadene to the affected areas of your toes daily and then cover with gauze. *Continue your other medications as prescribed. Follow up: *You have an appointment with the anticoagulation clinic on August 14 at 2: 30 pm. *You have been scheduled to follow up with a primary care provider on SundayAugust 16 at 3:30 pm. Please seek medical attention if you experience fevers, chills, sweats, chest pain, shortness of breath, nausea, vomiting, lightheadedness, loss of consciousness, numbness or tingling, or if you experience worsening redness, swelling, pain or drainage from your toes. Medication Instructions: * Warfarin is a medicine prescribed to prevent blood clots * Warfarin will thin your blood and help prevent new clots * Take your medications exactly as directed * Never skip a dose. Never take a double dose. If you miss a dose, take it as soon as you remember * It is important for your doctor to monitor your prothrombin time (PT). This is a lab test * Keep your appointment for lab tests Risk of Adverse Drug Reactions and Interactions: * Warfarin increases your risk of bleeding * The food you eat and other medications you take can affect how Warfarin works in your body * Ask your doctor about daily aspirin therapy * It is very important to talk with your doctor about all of the other medicines, antibiotics, vitamins or herbal products that you are taking * All of your medication must be approved by your doctor, including new medicines, as well as medicines you have taken before you started taking Warfarin Diet: * In order for Warfarin to work properly, it is important to keep your intake of Vitamin K as consistent as possible * You should avoid any sudden change in Vitamin K intake * Report any significant changes in your diet or weight to your doctor Call your Doctor if you experience any of the following: * Swelling or Pain in your leg * Sudden, continuous pain deep in a muscle * Pain that worsens when you are active or when you stand still for a long time * Chest Pain * Sudden Shortness of Breath * Rapid or pounding heart beat * Fainting * Dizziness * Cough with blood or bloody sputum * Sweating more than normal * Bruises * heavy or uncontrolled bleeding * Blood in your urine, stool or vomit * Black or tarry stools Caring for Your Self at Home: * Avoid sitting, standing or lying down for long periods without moving your legs and feet * When traveling by car, stop to get out and move around at least once every 3 hours * On long airplane, train or bus rides, get up and move around when possible * If you can't get up, wiggle your toes and tighten your calves to keep your blood moving Current Hospital Diet Patient's current hospital diet: AHA Diet (Heart Healthy) Discharge Diet Recommended Diet: AHA Diet (Heart Healthy) Procedures Procedures Performed: Transthoracic echocardiogram, transesophageal echocardiogram Pending Studies Studies pending at discharge: yes List of pending studies: Antiphospholipid antibody studies Laboratory Results Hemoglobin A1c Test 08/08/16 05:29 Range/Units Estimated Average Glucose 123 mg/dl Hemoglobin A1c 5.9 H 4.5-5.6 % Medical Emergencies . Who to Call and When: Medical Emergencies: If at any time you feel your situation is an emergency, please call 911 immediately. . Non-Emergent Contact Non-Emergency issues call your: Primary Care Provider, Specialist ( Anticoagulation clinic) Call Non-Emergent contact if: you have a fever, wound has increased drainage, wound has increased redness, wound has increased pain, you have any medication questions . Past History Medical & Surgical History: (1) Deep Venous Thrombosis (2) Arterial occlusion . "Provider Documentation" section prepared by Aurora Yee. . VTE Core Measure Inpt VTE Proph given/why not?: Other Anticoagulation (Heparin)
--- NOTE | 2016-08-10 14:53 | Discharge Summary ---
Discharge Summary Date of Service August 10, 2016. (Aurora Yee ., MAYRA) Discharge Summary Admission Date: August 07, 2016 at 17:24 Discharge Date: August 10, 2016 Discharge Disposition: Home Principal Diagnosis: DVT, arterial occlusion, cellulitis Procedures: Transthoracic echo: * -- Conclusions -- * 1. Normal LV size. Mild concentric LVH. * 2. Normal LV systolic function. LVEF 55-60%. Abnormal septal motion consistent with conduction abnormality. * 3. Normal RV size and function. * 4. Severely dilated left atrium. * 5. Aortic sclerosis without stenois. * 6. Compared with prior study on 04/07/2010: * No significant changes. Transesophageal echo: * -- Conclusions -- * 1. Normal LV size, wall thickness and function. LVEF 55-60%. * 2. Mildly dilated RV with normal function. * 3. Mild aortic sclerosis, trace MR. * 4. No intracardiac thrombus or masses indentified * 5. Patent foramen ovale with left to right shunt by color doppler and positive saline contrast study for right to left shunting. * 6. Dilated ascending aorta (4.6 cm). Consultations: Vascular surgery--Dr. Munoz Hematology--Dr. Carmona (Aurora Yee ., PA-C) Medication Reconciliation New Medications: Cephalexin Monohydrate (Keflex) 500 Mg Cap 1 CAP PO BID for 7 Days, #14 CAP Enoxaparin (Lovenox) 150 Mg/1 Ml Inj 150 MG SC BID for 5 Days, #10 DOSE Silver Sulfadiazine (Ssd) 150 Appln/50 Gm Cr 1 APPLN EXT DAILY for 14 Days, #14 DOSE Apply to affected areas of feet and cover with guaze. Changed Medications: Warfarin Sod (Jantoven) 10 Mg Tab 10 MG PO UD for 30 Days, #32 TAB (Changed from: DAILY) Take 20 mg by mouth daily for 2 days, then take 10 mg by mouth daily. Continued Medications: Allopurinol (Zyloprim) 300 Mg Tab 300 MG PO DAILY, TAB Cholecalciferol (Vitamin D3) Unknown Strength Tab Unknown Dose PO DAILY for 90 Days, TAB 3 Refills Fish Oil ([place]ry-3) Unknown Strength Cap Unknown Dose PO BID, CAP Glucosamine Sulfate (Glucosamine) 1,000 Mg Tab 1000 MG PO, TAB Levothyroxine Sodium (Levothyroxine Sodium) 50 Mcg Tab 1 TAB PO DAILY for 90 Days, #90 TAB 3 Refills Losartan Potassium (Cozaar) 100 Mg Tab 100 MG PO DAILY, TAB Metoprolol Succinate (Metoprolol Succinate ER) 100 Mg Tabcr 100 MG PO DAILY Discharge Exam See Hospitalist Progress Note from 08/10/16 for HPI, ROS, and physical exam (Aurora Yee ., MAYRA) Hospital Course 70 y/o male with a history of paroxysmal afib, HTN, CKD stage III, hypothyroidism, and recent DVT who presents to the ED for red/purple discoloration of toes since (08/03). LLE venous ultrasound showed DVT of distal popliteal and posterior tibial vein, as well as in the popliteal vein branch, likely sural vein. LLE arterial ultrasound shows focal occlusion of dorsalis pedis artery. Embolic occlusion and DVT--stable -Admitted to telemetry. Patient remained in A. fib overnight with heart rate in the 70s to 80s but with spikes up to 130s -Hematology consulted, appreciate recs: Spoke with Dr. Carmona on the phone after ANNI results came back. He consulted with Dr. Zheng who is okay with patient going home. Will schedule pt for follow up with him in a few months. Warfarin as below, bridge with Lovenox. -Dr. Zheng recs pt taking warfarin 20 mg PO x 2 days, then 10 mg PO qd until f /u appt on 08/14 -Transesophageal echo: * -- Conclusions -- * 1. Normal LV size, wall thickness and function. LVEF 55-60%. * 2. Mildly dilated RV with normal function. * 3. Mild aortic sclerosis, trace MR. * 4. No intracardiac thrombus or masses indentified * 5. Patent foramen ovale with left to right shunt by color doppler and positive saline contrast study for right to left shunting. * 6. Dilated ascending aorta (4.6 cm). -Transthoracic echo: * -- Conclusions -- * 1. Normal LV size. Mild concentric LVH. * 2. Normal LV systolic function. LVEF 55-60%. Abnormal septal motion consistent with conduction abnormality. * 3. Normal RV size and function. * 4. Severely dilated left atrium. * 5. Aortic sclerosis without stenois. * 6. Compared with prior study on 04/07/2010: * No significant changes. -CT LLE shows soft tissue ulcer at 1st webspace, no osteomyelitis -CT RLE shows soft tissue edema -CTA chest shows mild dilation of ascending thoracic aorta (45 mm), no significant plaques -CTA abdomen negative for AAA or significant plaques -Immunology studies pending -Vascular surgery consulted, appreciate recs: no intervention, doubt there is an embolic source -Continue heparin drip for now until further recs -HgbA1c 5.9 -Consult wound care nurse Cellulitis toes bilaterally--improving -Continue abx with Keflex 500 mg PO BID x 7 days (total 10 day course, received 3 days Ancef while inpt) -May apply Silvadene daily to affected areas and cover with gauze Paroxysmal afib--still in afib, now rate controlled -Continue to monitor on tele -Continue metoprolol succinate 100 mg PO qd -Heparin, Coumadin held for now CKD stage III--stable. Baseline creatinine 1.2-1.4 per hospital records -Creatinine 1.5 on arrival -IVF NSS at 100 cc/hr x 3L -Creatinine remains stable at 1.5 on 08/10 Hypothyroidism -Continue Synthroid 50 mcg PO qd DVT prophylaxis -Heparin drip while in pt Code Status -Level I, FULL RESUSCITATION STATUS Total Time Spent: Greater than 30 minutes This includes examination of the patient, discharge planning, medication reconciliation, and communication with other providers. (Aurora Yee ., PA-C) I agree with PA assessment and plan and have seen and examined pt myself Resting comfortably in bed Labs and vitals reviewed Appreciate hematology recs OK to continue AC at home with f/u with Dr Zheng ANNI reviewed, PFO found but no current thrombus noted OK for discharge home with lovenox bridge for 5 days in addition to lovenox (Lewis Weiner D.O.) Discharge Instructions Please refer to the electronic Patient Visit Report (Discharge Instructions) for additional information. (Aurora Yee ., PA-C) Additional Copies To Trish Woo MD
[2016-08-10] MEDS ORDERED: NURSING VERBAL MED ORDER ONE ×2 (15:15→15:30)
[2016-08-11 13:52] LABS: B2 GLYCOPROTEIN IGA <9 SAU (<=20); B2 GLYCOPROTEIN IGG <9 SGU (<=20); B2 GLYCOPROTEIN IGM <9 SMU (<=20); LUPUS ANTICOAGULANT** TC36573X Negative (Negative)
[2016-08-15] MEDS ORDERED: WARF10TA4 PO (14:38)
[2016-10-23] MEDS ORDERED: WARF7.5T4 PO (09:35)
== END 2016-08-10 16:00 | disposition home or self-care (01) | DRG 300 ==
LOC: ENRESERVTM → ENRESERVDT → C.EDB 12:13 → C.MED 17:24
PROVIDERS: ADMIT Internal Medicine; ATTEND Hospitalist
DX: I82.432 Acute embolism and thrombosis of left popliteal vein (principal); I75.022 Atheroembolism of left lower extremity; Q21.1 Atrial septal defect; Z68.41 Body mass index [BMI] 40.0-44.9, adult; I82.442 Acute embolism and thrombosis of left tibial vein; I48.0 Paroxysmal atrial fibrillation; I12.9 Hypertensive chronic kidney disease with stage 1 through stage 4 chronic kidney disease, or unspecified chronic kidney disease; N18.3 Chronic kidney disease, stage 3 (moderate); E66.01 Morbid (severe) obesity due to excess calories; E78.00 Pure hypercholesterolemia, unspecified; L97.529 Non-pressure chronic ulcer of other part of left foot with unspecified severity; L03.032 Cellulitis of left toe; L03.031 Cellulitis of right toe; I08.0 Rheumatic disorders of both mitral and aortic valves; Z79.01 Long term (current) use of anticoagulants; Z79.899 Other long term (current) drug therapy; Z88.8 Allergy status to other drugs, medicaments and biological substances; Z87.891 Personal history of nicotine dependence; Z82.49 Family history of ischemic heart disease and other diseases of the circulatory system; Z51.81 Encounter for therapeutic drug level monitoring

== ENCOUNTER 2016-11-01 08:12 | Emergency (ER) | payer BC ==
[~2016-11-01] VITALS: Ht 190.5 cm; Wt 137.6 kg
[~2016-11-01 08:12] MED LIST changes: -ALLO100T PO; +ALLO300T2 PO; -AZEL0.056; +CHOL1000 PO; -CZR25; -ENOX1INJ14 SQ; +GLUC10007 PO; +LEVO50TA6 PO; +LOSA100T65 PO; +OMEG10007 PO; +TPRSR/100 PO; -TPRSR25; +WARF10TA4 PO; +WARF7.5T4 PO
[2016-11-01 08:16] VITALS: TEMP 36.8; Ht 190.5 cm; Wt 137.6 kg
[2016-11-01] MEDS ORDERED: GELATIN SPONGE 12-7MM ONE (08:26)
[2016-11-01 09:55] VITALS: BP 136/97; PULSE 79; O2SAT 93
--- NOTE | 2016-11-01 13:46 | EMERGENCY ROOM VISIT NOTE ---
History Report prepared by Sumit: Martinez Lovell Under the Supervision of: Dr. Byron Daily D.O. First contact with patient: 08:18 Chief Complaint: BLEEDING Stated Complaint: LEFT FOOT/BLEEDING Nursing Triage Summary: Pt presents with c/o bleeding to left foot s/p biopsy yesterday. Pt states he has wounds to b/l feet and they did the bx for the wounds. Pt states he takes Coumadin and left foot has not stopped bleeding. Done at [facility]. History of Present Illness The patient is a 70 year old male who presents to the Emergency Room with complaints of constant bleeding in his left foot starting yesterday morning. The patient states that he got a biopsy of the foot for an infection, and it has been bleeding ever since. The patient got some silver nitrate on the foot, and it helped stop the bleeding initially, though the foot started to bleed again soon afterwards. The patient states that he is on warfarin, and the last warfarin level was 3.3 about a week ago. He states that he is on warfarin for blood clots. The patient states that he does not have osteomyelitis. Patient has not complaints including chest pain, shortness breath, nausea, vomiting, diarrhea or fevers. Source of History: patient Onset: yesterday morning Position: foot (left) Quality: other (bleeding) Timing: constant Review of Systems See HPI for pertinent positives & negatives. A total of 10 systems reviewed and were otherwise negative. Past Medical & Surgical Medical Problems: (1) Deep Venous Thrombosis Family History Myocardial Infarction FATHER, BROTHER, Social History Smoking Status: Former Smoker Drug Use: none Occupation Status: retired Current/Historical Medications Scheduled Allopurinol (Zyloprim), 300 MG PO DAILY Cholecalciferol (Vitamin D3), Unknown Dose PO DAILY Fish Oil ([place]-3), 900 UNITS PO QD Glucosamine Sulfate (Glucosamine), 1,000 MG PO DAILY Levothyroxine Sodium (Levothyroxine Sodium), 75 MCG PO DAILY Losartan Potassium (Cozaar), 100 MG PO DAILY Metoprolol Succinate (Metoprolol Succinate ER), 100 MG PO DAILY Warfarin Sod (Jantoven), 10 MG PO [id number] Warfarin Sod (Jantoven), 7.5 MG PO WK Allergies Coded Allergies: Hydrochlorothiazide (Unverified Allergy, Unknown, "shut down kidneys", 11/01) Physical Exam Vital Signs Date Time Temp Pulse Resp B/P (MAP) Pulse Ox O2 Delivery O2 Flow Rate FiO2 11/01/16 09:55 79 18 136/97 93 Room Air 11/01/16 08:16 36.8 75 20 144/93 93 Room Air Physical Exam GENERAL: Sitting up in bed, morbidly obese, in no acute distress EYE EXAM: normal conjunctiva OROPHARYNX: no exudate, no erythema, lips, buccal mucosa, and tongue normal and mucous membranes are moist NECK: supple, no nuchal rigidity, no adenopathy, non-tender LUNGS: Clear to auscultation. Normal chest wall mechanics HEART: no murmurs, S1 normal and S2 normal ABDOMEN: abdomen soft, non-tender, normo-active bowel sounds, no masses, no rebound or guarding. UPPER EXTREMITIES: upper extremities are grossly normal. LOWER EXTREMITIES: .5cm x .5cm incision between the first and second digit of the left foot. Swelling in the bilateral lower extremities. Plantar and dorsiflexion in the lower extremity. NEURO EXAM: Normal sensorium Medical Decision & Procedures Medications Administered Medications (Trade) Dose Ordered Sig/Karen Route Start Time Stop Time Status Last Admin Dose Admin Gelatin (Surgifoam Sponge 12-7MM (SMALL)) 1 ea STK-MED ONCE .ROUTE 11/01/16 08:26 11/01/16 08:27 DC 11/01/16 08:26 1 EA ED Course ED COURSE: Vital signs were reviewed and showed normal vitals The patients medical record was reviewed The above diagnostic studies were performed and reviewed. ED treatments and interventions as stated above. 0821: The patient was evaluated in room B3. A complete history and physical examination was performed. 0826: Surgifoam Sponge 12-7mm (small) Topical 0910: I reevaluated the patient, and there was no additional bleeding 1016: Upon reevaluation, the patient is feeling well and having no additional bleeding. I discussed my findings with the patient and he understands and agrees with the treatment plan. Based on the patients age, coexisting illnesses, exam and lab findings the decision to treat as an outpatient was made. The patient remained stable while under my care. The patient appeared well at the time of discharge. Medical Decision Patient is a 70-year-old male who presents the ER for bleeding in between the first and second toes on the left foot on the plantar aspect. Patient is on Coumadin with an INR 2.3 in the past week. Patient has no other complains. [facility] There is a half a centimeter by half centimeter wound with mild venous oozing. Surgicel was placed in a pressure dressing was wrapped. Patient has no other complaints at this time. No active bleeding following observation for 1-1/2 hours. Patient was discharged with wrap in place to remove in 24 hours at home. Discussed with Pt concerning signs and symptoms to watch out for. Pt was instructed to follow up with their PCP and discussed with the patient their option to return to the ED at anytime for persistent or worsening symptoms. The appropriate anticipatory guidance and out- patient management, including indications for return to the emergency department , were explained at length to the patient and understood. Medication Reconcilliation Current Medication List: was personally reviewed by me Blood Pressure Screening Patient's blood pressure: Normal blood pressure Impression Primary Impression: Bleeding Scribe Attestation The scribe's documentation has been prepared under my direction and personally reviewed by me in its entirety. I confirm that the note above accurately reflects all work, treatment, procedures, and medical decision making performed by me. Departure Information Dispostion Home / Self-Care Referrals Clovis Heredia M.D. (PCP) Forms HOME CARE DOCUMENTATION FORM, IMPORTANT VISIT INFORMATION Patient Instructions First Aid Bleeding, My [facility] Additional Instructions Please follow up with your primary care doctor within the next 24-48 hours. Any recurrence of any bleeding which does not stop with holding pressure for 15 minutes she should present again to the ER. Please remove dressing within 24 hours to reevaluate. Please monitor closely for any redness, fevers or pain at the site of the biopsy.
== END 2016-11-01 10:26 | disposition home or self-care (01) ==
LOC: C.EDB 08:13
DX: L76.22 Postprocedural hemorrhage of skin and subcutaneous tissue following other procedure (principal); Z87.891 Personal history of nicotine dependence; Z79.01 Long term (current) use of anticoagulants

== ENCOUNTER 2018-10-23 11:10 | Inpatient (IN) ==
[2018-10-23 12:21] LABS: Basophils # (auto) 0.02 K/uL (0-0.2); Basophils % (auto) 0.2 %; Eosinophils # (auto) 0.08 K/uL (0-0.5); Eosinophils % (auto) 0.7 %; Hematocrit (blood only) 44.5 % (42-52); Hemoglobin 15.2 g/dL (14.0-18.0); Immature Granulocytes # (auto) 0.04 K/uL (0.00-0.02); Immature Granulocytes % (auto) 0.3 %; Lymphocytes # (auto) 0.87 K/uL (1.2-3.4); Lymphocytes % (auto) 7.2 %; Mean Corpuscular Hgb Conc 34.2 g/dL (32-36); Mean Corpuscular Volume 87.6 fL (80-100); Mean Platelet Volume 11.1 fL (7.4-10.4); Monocytes # (auto) 0.86 K/uL (0.11-0.59); Monocytes % (auto) 7.1 %; Neutrophils # (auto) 10.25 K/uL (1.4-6.5); Neutrophils % (auto) 84.5 %; Platelet Count 223 K/uL (130-400); RDW Coefficient of Variation 16.2 % (11.5-14.5); RDW Standard Deviation 51.9 fL (36.4-46.3); Red Blood Count 5.08 M/uL (4.7-6.1); White Blood Count 12.12 K/uL (4.8-10.8)
[2018-10-23 12:38] LABS: Albumin Level 2.9 gm/dl (3.4-5.0); BUN Creatinine Ratio 16.2 (10-20); Creatinine Clr Calc Pharmacy 53.1 ml/min; Est GFR (African American) 39.9; Est GFR (Non-African American) 34.4; Potassium 3.9 mmol/L (3.5-5.1)
--- NOTE | 2018-10-23 12:38 | XRay Report ---
XR foot LT min 3V routine CLINICAL HISTORY: Infection between great toe and 2nd toe eval for osteo COMPARISON: None DISCUSSION: No fractures are visualized. The bones are osteopenic. There are moderate arthritic mejias es within the midfoot. There is a plantar calcaneal spur. There is moderate to marked dorsal soft tis lexi swelling. There are no bony destructive changes to indicate osteomyelitis. There is an old healed fourth metatarsal fracture IMPRESSION: 1. No acute fractures 2. No conventional radiographic evidence of osteomyelitis 3. Moderate arthritic changes within the midfoot 4. Prominent soft tissue edema Electronically signed by: Christiano Liu M.D. 10/23/2018 12:37 PM
--- NOTE | 2018-10-23 12:39 | XRay Report ---
LEFT ANKLE 3 VIEWS HISTORY: Left ankle pain/swelling eval for fx/effusion COMPARISON: None. FINDINGS: No acute fracture or dislocation. Diffuse soft tissue edema. Plantar heel spur. Small well- corticated ossific density adjacent to the lateral malleolus consistent with old avulsion injury. Foc al small lucency at the lateral talar dome. No radiopaque foreign bodies. IMPRESSION: Diffuse soft tissue edema within the left ankle. No acute fracture or dislocation. Focal small lucenc y at the lateral talar dome may represent an osteochondral defect. Electronically signed by: Cooper Wolf M.D. 10/23/2018 12:38 PM
[2018-10-23 12:41] LABS: Albumin Globulin Ratio 0.5 (0.9-2); Bilirubin,Total 0.9 mg/dl (0.2-1); Globulin 5.5 gm/dl (2.5-4.0); Total Protein 8.4 gm/dl (6.4-8.2)
[2018-10-23 13:57] LABS: Partial Thromboplastin Ratio 1.9; Prothrombin Time 28.1 Seconds (9.0-12.0)
[2018-10-23 13:58] LABS: C Reactive Protein 12.9 mg/dl (0-0.29); Uric Acid 9.1 mg/dl (2.6-7.2)
[2018-10-23 14:00] LABS: Partial Thromboplastin Time 50.5 Seconds (21.0-31.0)
[2018-10-23] MEDS ORDERED: CEFEPIME 2,000 MG/20 ML VIAL IV STA (14:30)
[2018-10-23] MEDS ORDERED: VANCOMYCIN CONSULT ACTIVE PRN ×2 (14:30→17:44)
[2018-10-23] MEDS ORDERED: VANCOMYCIN HCL 2,750 MG in SODIUM CHLORIDE 0.9% 500 ML IV ONE (14:30)
--- NOTE | 2018-10-23 15:49 | History & Physical Report ---
Date of Service October 23, 2018 Assessment & Plan (1) Cellulitis of left lower extremity: Continue vancomycin and cefepime. Previous cultures have revealed Pseudomonas and staph aureus. Present on Admission?: Yes (2) Chronic ulcer of left foot: Wound care nurse consultation. Consider dermatology consultation and/or podiatry consultation Present on Admission?: Yes (3) Anticoagulated on Coumadin: Daily INR measurements. Adjust Coumadin accordingly Present on Admission?: Yes (4) Chronic kidney disease, stage III (moderate): Monitor intake and output. Daily labs Present on Admission?: Yes (5) Chronic atrial fibrillation: Controlled rate with metoprolol. Continue Coumadin therapy. Daily INR Present on Admission?: Yes (6) Hypertension: Controlled with metoprolol Present on Admission?: Yes History of Present Illness Chief Complaint: Left lower extremity and left foot swelling and redness and tenderness Primary Care Provider: Clovis Heredia 72-year-old male with chronic venous insufficiency and chronic bilateral lower extremity edema. He also has chronic ulcerations between the toes of both feet, more pronounced on the left. He now has diffuse erythema tenderness and swelling of the left leg below the knee including the left foot consistent with cellulitis. Previous cultures have grown Pseudomonas and staph aureus. He was given vancomycin and cefepime in the ED which will be continued. He is on chronic Coumadin therapy due to chronic atrial fibrillation. INR is 3.0. He has chronic kidney disease. Wound care consultation will be requested. Cons ideration for dermatology consultation should be given to evaluate the chronic left forefoot ulcerations. Allergies Allergy/AdvReac Type Severity Reaction Status Date / Time hydrochlorothiazide Allergy Unknown "shut down Verified 07/29/18 13:18 kidneys" Home Medications Home Medications Medication Instructions Recorded Confirmed Type metoprolol succinate 100 mg PO QPM #0 08/07/16 10/23/18 History levothyroxine 137 mcg PO DAILY 07/29/18 10/23/18 History allopurinol 100 mg tablet 100 mg PO BID tab 09/12/18 10/23/18 History warfarin 5 mg tablet See Rx Instructions PO UD tab 09/12/18 10/23/18 History colchicine 0.6 mg PO DAILY 10/23/18 10/23/18 History Past Med/Surg History Medical History Cellulitis (Acute) Atrial fibrillation, chronic (Acute) Benign essential HTN (Acute) Cellulitis of left anterior lower leg (Acute) Hyperkalemia (Acute) Hypothyroidism (Acute) no longer on any meds Obesity (Acute) Prediabetes (Acute) Hearing deficit On anticoagulant therapy Sleep apnea cpap Surgical History History of esophagogastroduodenoscopy (EGD) Family History Other No family history of adverse response to anesthesia Social History Preferred Language: Kyrgyz Communication Ability: Effective Beliefs That Will Affect Care: None marital status: Current Living Situation: Spouse current occupational status: retired Feels Safe at Home: Yes Smoking Status: Never smoker Second Hand Exposure: Yes (father smoked) Hx Alcohol Use: Yes Alcohol type: beer, wine and hard liquor Hx Substance Use: No Review of Systems Review of Systems: Constitutional-no fever or chills ENT-no blurred vision, no double vision, no epistaxis, no sore throat Respiratory-no cough, no wheezing, no shortness of breath Cardiac-no palpitations, no chest pain, no syncope GI-no nausea, vomiting, diarrhea, melena, hematochezia -no urinary retention, no urinary incontinence, no dysuria, no hematuria Musculoskeletal-worsening swelling left lower extremity and left foot. Skin-diffuse erythema and tenderness about the left lower extremity and left foot Neuro-no isolated weakness, no paresthesia, no weakness Psych-no depression, no anxiety Physical Exam Physical Exam: General-alert and oriented x3, no fevers, no chills HEENT-head atraumatic and normocephalic, TMs intact bilaterally, pupils equal and reactive to light, extraocular muscles intact Neck-no lymphadenopathy or thyromegaly, trachea midline Chest-clear to auscultation percussion. No rales wheezing or rhonchi Cardiac-irregular rhythm, normal S1 and S2, no JVD Abdomen-normal bowel sounds, nontender, no hepatosplenomegaly Extremities-bilateral chronic venous stasis changes and bilateral lower extremity edema more pronounced on the left leg with and diffuse erythema and tenderness of the left lower extremity below the knee including the left foot Skincrusted chronic appearing superficial ulcerations between multiple toes of the left foot. To a lesser extent on the right foot. Some forefoot areas appear to be tinea pedis. Dystrophic toenails noted bilaterally Neuro-cranial nerves II through XII intact, motor and sensory function within normal limits, strength symmetrical 5/5, no focal deficits Psych-normal affect, normal mood Results & Data Vital Signs (Past 12 Hours) Vital Signs Temp Pulse Pulse Resp BP BP Pulse Ox 10/23/18 14:15 81 18 147/93 H 10/23/18 12:08 99 H 22 119/79 94 10/23/18 11:16 36.8 C 95 H 18 117/69 95 Laboratory Results 10/23/18 11:52 10/23/18 11:52 PG Care Time/CCT Total # of Minutes Spent Total Time Spent with Patient: Total time spent is greater than 50% in coordination of care (as documented) at patient's floor/unit and/or counseling patient:
[2018-10-23] MEDS ORDERED: ACETAMINOPHEN 325 MG TAB PO PRN (17:44)
[2018-10-23] MEDS ORDERED: ALUMINUM/MAGNESIUM SUSP 30 ML UDC PO PRN (17:44)
[2018-10-23] MEDS ORDERED: VANCOMYCIN HCL 1,000 MG in SODIUM CHLORIDE 0.9% 250 ML IV SCH (17:44)
[2018-10-23] MEDS ORDERED: ONDANSETRON INJ 2 MG/ML 2 ML VIAL IV PRN (17:44)
--- NOTE | 2018-10-23 18:44 | Emergency Department Note ---
Entered by Wade Vaughn acting as a scribe for History of Present Illness General Chief complaint: Ankle Pain Stated complaint: SWOLLEN LEFT ANKLE, RIGHT KNEE PAIN Source: patient History of Present Illness Onset (ago): day(s) (yesterday afternoon ) Location: lower extremity (left ankle ) Pain Consistency: + constant Maximum Pain Intensity: 9 Associated symptoms: + other (+wounds on toes; +gout in right knee; -abdominal broussard); no chest pain, no fever/chills, no nausea/vomiting and no shortness of breath The patient is a 72 year old male who presents to the Emergency Room with complaints of a constant left ankle pain that began yesterday afternoon. That patient reports he was sent to the ED by his PCP. The patient notes he has had previous issues with his left leg, but those symptoms were closer to his knee compared to the ankle symptoms he is experiencing currently. The patient notes of wounds on the toes of both of his feet that have been present for 3-4 months. The patient reports he treats those wounds himself with Silvadene and Calmoseptine. The patient also mentions right knee discomfort due to gout. The patient states that he typically experiences gout in both knees but not in ankles and toes. The patient also reports of 2 clots in left leg and 1 clot in his right leg. The patient denies an IVC filter. He is on Coumadin. The patient also denies fever, vomiting, chest pain, shortness of breath, or abdominal pain. Home Medications Home Medications Medication Instructions Recorded Confirmed Type metoprolol succinate 100 mg PO QPM #0 08/07/16 10/23/18 History levothyroxine 137 mcg PO DAILY 07/29/18 10/23/18 History allopurinol 100 mg tablet 100 mg PO BID tab 09/12/18 10/23/18 History warfarin 5 mg tablet See Rx Instructions PO UD tab 09/12/18 10/23/18 History colchicine 0.6 mg PO DAILY 10/23/18 10/23/18 History Allergies Allergy/AdvReac Type Severity Reaction Status Date / Time hydrochlorothiazide Allergy Unknown "shut down Verified 07/29/18 13:18 kidneys" Past Med/Surg History Medical History Hypertension (Chronic) Chronic atrial fibrillation (Chronic) Chronic kidney disease, stage III (moderate) (Chronic) Chronic ulcer of left foot (Chronic) Cellulitis (Acute) Atrial fibrillation, chronic (Acute) Benign essential HTN (Acute) Cellulitis of left anterior lower leg (Acute) Hyperkalemia (Acute) Hypothyroidism (Acute) no longer on any meds Obesity (Acute) Prediabetes (Acute) Hearing deficit On anticoagulant therapy Sleep apnea cpap Surgical History History of esophagogastroduodenoscopy (EGD) Family History Other No family history of adverse response to anesthesia Social History Preferred Language: Albanian Communication Ability: Effective Communication Ability Comment: [place], does not have h/a here 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 and A total of 10 systems reviewed and were otherwise negative Physical Exam Vital Signs Vital Signs - 24 hr 10/23/18 11:16 10/23/18 12:08 10/23/18 14:15 Temperature 36.8 C Temperature Source Oral Sepsis Recent Fever Within 48 Hours No Sepsis New/Unexplained Change in Mental Status No Sepsis Action Taken by Nursing No Action Required Pulse Rate 95 H Pulse Rate [Apical] 99 H 81 Respiratory Rate 18 22 18 Respiratory Effort / Characteristics Non-Labored Respiratory Depth Normal Blood Pressure 117/69 Blood Pressure [Right Arm] 119/79 147/93 H Blood Pressure Mean 85 Blood Pressure Mean [Right Arm] 92 111 Pulse Oximetry 95 94 Oxygen Delivery Method Room Air Room Air Constitutional: Vital signs reviewed. Eyes: Pupils are equal round reactive to light. Conjunctiva are noninjected. ENT: Pharynx is clear without erythema or exudate. Mucous membranes are moist. Neck supple without meningeal signs. Respiratory: Clear to auscultation bilaterally. Breath sounds are equal bilaterally. Cardiovascular: Regular rate and irregularly irregular rhythm. No rubs or gallops. GI: Soft, nondistended and nontender. Bowel sounds are present. Musculoskeletal: Bilateral extremity edema, left greater than right especially over ankle and foot. Swelling and increased warmth to dorsum of foot. Some tenderness to lateral malleolus of left ankle. Tenderness over dorsum of foot with ulcerative lesion between the 1st and 2nd toes of both feet with purulent drainage. Integumentary: No cyanosis. Neurological: The patient is awake and alert. No focal deficits. Psychiatric: Normal affect. Course 1208: Past medical records reviewed. The patient was evaluated in room C12B. A complete history and physical exam was performed. 1429: I discussed the case with the patient. I talked to him about admission for IV antibiotics. 1438: I [facility] the [facility] Hitchcock will further evaluate the patient. Consultations Consultation #1: I discussed the [facility]. Hitchcock will further evaluate the patient. Time: 14:38 Administered Medications Discontinued Medications Cefepime HCl (Maxipime) 2,000 mg in 20 mls @ 5 mls/min IV NOW STA; Protocol Stop: 10/23/18 14:33 Last Admin: 10/23/18 15:43 Dose: 5 mls/min Documented by: [id number] Vancomycin HCl 2,750 mg/ (Sodium Chloride) 555 mls @ 200 mls/hr IV NOW ONE; Protocol Stop: 10/23/18 17:16 Last Infusion: 10/23/18 18:28 Dose: 0 mls/hr Documented by: [id number] Admin: 10/23/18 14:53 Dose: 200 mls/hr Documented by: [id number] Medical Decision Making Differential Diagnosis Differential diagnoses include cellulitis, arthritis, joint diffusion, osteomyelitis, DVT, amongst others. Medical Records Attestation: I reviewed the patient's medical records. The patient was seen here on 07/29/17 for left leg swelling pain and a fever. 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 The patient was diagnosed with cellulitis and discharged with clindamycin. Home Medications Current Medication List: was personally reviewed by me Laboratory Data Attestation: I reviewed the patient's lab results. Result diagrams: 10/23/18 11:52 10/23/18 11:52 Lab Results 10/23/18 10/23/18 10/23/18 Range/Units 11:52 11:52 11:52 WBC 12.12 H (4.8-10.8) K/uL RBC 5.08 (4.7-6.1) M/uL Hgb 15.2 (14.0-18.0) g/dL Hct 44.5 (42-52) % MCV 87.6 (80-100) fL MCH 29.9 (25-34) pg MCHC 34.2 (32-36) g/dL RDW Std Deviation 51.9 H (36.4-46.3) fL RDW Coeff of [place] 16.2 H (11.5-14.5) % Plt Count 223 (130-400) K/uL MPV 11.1 H (7.4-10.4) fL Immature Gran % (Auto) 0.3 % Neut % (Auto) 84.5 % Lymph % (Auto) 7.2 % [place] % (Auto) 7.1 % Eos % (Auto) 0.7 % Baso % (Auto) 0.2 % Immature Gran # (Auto) 0.04 H (0.00-0.02) K/uL Neut # (Auto) 10.25 H (1.4-6.5) K/uL Lymph # (Auto) 0.87 L (1.2-3.4) K/uL [place] # (Auto) 0.86 H (0.11-0.59) K/uL Eos # (Auto) 0.08 (0-0.5) K/uL Baso # (Auto) 0.02 (0-0.2) K/uL ESR > 90 H (0-14) mm/hr PT (9.0-12.0) Seconds INR (0.9-1.1) APTT (21.0-31.0) Seconds PTT Ratio Sodium 136 (136-145) mmol/L Potassium 3.9 (3.5-5.1) mmol/L Chloride 106 (98-107) mmol/L Carbon Dioxide 22 (21-32) mmol/L Anion Gap 8.0 (3-11) BUN 31 H (7-18) mg/dl Creatinine 1.89 H (0.6-1.4) mg/dl Est Cr Clr Drug Dosing 53.1 ml/min Est GFR ( Amer) 39.9 Est GFR (Non-Af Amer) 34.4 BUN/Creatinine Ratio 16.2 (10-20) Glucose 106 H (70-99) mg/dl Uric Acid (2.6-7.2) mg/dl Calcium 9.0 (8.5-10.1) mg/dl Total Bilirubin 0.9 (0.2-1) mg/dl AST 25 (15-37) U/L ALT 37 (12-78) U/L Alkaline Phosphatase 98 (45-117) U/L C-Reactive Protein (0-0.29) mg/dl Total Protein 8.4 H (6.4-8.2) gm/dl Albumin 2.9 L (3.4-5.0) gm/dl Globulin 5.5 H (2.5-4.0) gm/dl Albumin/Globulin Ratio 0.5 L (0.9-2) 10/23/18 10/23/18 Range/Units 11:52 11:52 WBC (4.8-10.8) K/uL RBC (4.7-6.1) M/uL Hgb (14.0-18.0) g/dL Hct (42-52) % MCV (80-100) fL MCH (25-34) pg MCHC (32-36) g/dL RDW Std Deviation (36.4-46.3) fL RDW Coeff of [place] (11.5-14.5) % Plt Count (130-400) K/uL MPV (7.4-10.4) fL Immature Gran % (Auto) % Neut % (Auto) % Lymph % (Auto) % [place] % (Auto) % Eos % (Auto) % Baso % (Auto) % Immature Gran # (Auto) (0.00-0.02) K/uL Neut # (Auto) (1.4-6.5) K/uL Lymph # (Auto) (1.2-3.4) K/uL [place] # (Auto) (0.11-0.59) K/uL Eos # (Auto) (0-0.5) K/uL Baso # (Auto) (0-0.2) K/uL ESR (0-14) mm/hr PT 28.1 H (9.0-12.0) Seconds INR 3.0 H (0.9-1.1) APTT 50.5 H* (21.0-31.0) Seconds PTT Ratio 1.9 Sodium (136-145) mmol/L Potassium (3.5-5.1) mmol/L Chloride (98-107) mmol/L Carbon Dioxide (21-32) mmol/L Anion Gap (3-11) BUN (7-18) mg/dl Creatinine (0.6-1.4) mg/dl Est Cr Clr Drug Dosing ml/min Est GFR ( Amer) Est GFR (Non-Af Amer) BUN/Creatinine Ratio (10-20) Glucose (70-99) mg/dl Uric Acid 9.1 H (2.6-7.2) mg/dl Calcium (8.5-10.1) mg/dl Total Bilirubin (0.2-1) mg/dl AST (15-37) U/L ALT (12-78) U/L Alkaline Phosphatase (45-117) U/L C-Reactive Protein 12.90 H (0-0.29) mg/dl Total Protein (6.4-8.2) gm/dl Albumin (3.4-5.0) gm/dl Globulin (2.5-4.0) gm/dl Albumin/Globulin Ratio (0.9-2) Imaging Data Radiologist's Impression: Radiology results as stated below per my review and the radiologist's interpretation: XR foot LT min 3V routine CLINICAL HISTORY: Infection between great toe and 2nd toe eval for osteo COMPARISON: None DISCUSSION: No fractures are visualized. The bones are osteopenic. There are moderate arthritic changes within the midfoot. There is a plantar calcaneal spur. There is moderate to marked dorsal soft tissue swelling. There are no bony destructive changes to indicate osteomyelitis. There is an old healed fourth metatarsal fracture IMPRESSION: 1. No acute fractures 2. No conventional radiographic evidence of osteomyelitis 3. Moderate arthritic changes within the midfoot 4. Prominent soft tissue edema Electronically signed by: Christiano Liu M.D. 10/23/2018 12:37 PM LEFT ANKLE 3 VIEWS HISTORY: Left ankle pain/swelling eval for fx/effusion COMPARISON: None. FINDINGS: No acute fracture or dislocation. Diffuse soft tissue edema. Plantar heel spur. Small well-corticated ossific density adjacent to the lateral malleolus consistent with old avulsion injury. Focal small lucency at the lateral talar dome. No radiopaque foreign bodies. IMPRESSION: Diffuse soft tissue edema within the left ankle. No acute fracture or dislocation. Focal small lucency at the lateral talar dome may represent an osteochondral defect. Electronically signed by: Cooper Wolf M.D. 10/23/2018 12:38 PM ECG Data Attestation: I personally reviewed and interpreted this ECG as follows: Indication: tachycardia Rate (beats per minute): 101 Rhythm: atrial fibrillation (with RVR) Findings: + RBBB; no PVC Blood Pressure Blood Pressure Findings: Normal blood pressure MDM Narrative I did evaluate the patient as noted above. The patient is presenting with significant pain and redness to his left lower leg. It extends from the lower wood down to the toes. He has increased warmth and erythema surrounding the area. He has significant pain to his ankle. It is unclear whether or not he might have a septic arthritis but I am unable to perform arthrocentesis due to the surrounding cellulitis. He does appear to have just tenderness over the lateral malleolus and not the medial malleolus. IV access was established. The patient was placed on a continuous monitoring specialist. I did order and personally review the patient's 12-lead EKG as described above. He has atrial fibrillation without acute ischemia. I did order and personally reviewed the images of the patient's left ankle and foot x-rays as described above. There is no evidence of joint effusion to the left ankle. No acute fracture dislocation. I did order and review the patient's blood work as noted in the electronic medical record. His white count is elevated. ESR and CRP are elevated as well. Uric acid is elevated. INR is 3. Creatinine is 1.89. I did discuss the test results with the patient. I did recommend hospitalization for IV antibiotics and further evaluation and care. Based on his prior cultures I treated him with IV vancomycin and cefepime. He previously had growth of Pseudomonas and staph. I did discuss the case with the hospitalist and case assembler. Impression & Plan Cellulitis of left lower extremity, Ankle pain, left, Anticoagulated on Coumadin, CKD (chronic kidney disease), Foot infection Discharge Plan Visit Data *Final* Discharge Date/Time: 10/23/18 16:28 Chief Complaint: Ankle Pain Stated Complaint: SWOLLEN LEFT ANKLE, RIGHT KNEE PAIN ED Provider: Percy Tamayo Discharge Problem: Cellulitis of left lower extremity, Ankle pain, left, Anticoagulated on Coumadin, CKD (chronic kidney disease), Foot infection Patient Disposition: Admitted As Inpatient Discharge Instructions Interventions: ED Discharge Assessment Last Done: 10/23/18 16:28 Discharge Problem: Ankle pain, left Qualifiers: Chronicity: unspecified Qualified Code(s): M25.572 - Pain in left ankle and joints of left foot CKD (chronic kidney disease) Qualifiers: Chronic kidney disease stage: unspecified stage Qualified Code(s): N18.9 - Chronic kidney disease, unspecified The scribe's documentation has been prepared under my direction and personally reviewed by me in its entirety. I confirm that the note above accurately r eflects all work, treatment, procedures, and medical decision making performed by me.
[2018-10-23] MEDS ORDERED: LIDOCAINE 2% JELLY 5 ML TUBE ONE (19:16)
[2018-10-23 20:19] LABS: Appearance Urine Clear (Clear); Bacteria Urine Automated Negative (Negative); Bilirubin Urine Negative (Negative); Blood Urine Negative (Negative); Cast Urine Automated 0 /lpf (0-5); Color Urine Yellow; Epithelial Cell Urine Auto 0-5 /lpf (0-5); Glucose Urine UA Negative (Negative); Ketones Urine Trace (Negative); Leukocyte Esterase Urine Negative (Negative); Nitrite Urine Negative (Negative); Protein Urine 2+ (Negative); RBC Urine Automated 0-4 /hpf (0-4); Specific Gravity Urine 1.024 (1.000-1.030); Urobilinogen Urine Negative (Negative); WBC Urine Automated 0 /hpf (0-5)
[2018-10-23] MEDS: WARFARIN SOD 7.5 MG TAB PO SCH (21:20)
[2018-10-23] MEDS: ALLOPURINOL 100 MG TAB PO SCH (21:20)
[2018-10-23] MEDS: METOPROLOL SUCC 50MG EXT REL TAB PO SCH (21:21)
[2018-10-23] MEDS ORDERED: LIDOCAINE HCL VISCOUS SOLN 2% 15 ML UDC MT ONE (21:30)
[2018-10-23] MEDS ORDERED: LIDOCAINE 2% JELLY 5 ML TUBE EXT PRN (22:17)
[2018-10-24] MEDS: LEVOTHYROXINE SODIUM 137 MCG TABLET PO SCH (06:15)
[2018-10-24 06:38] LABS: Basophils # (auto) 0.04 K/uL (0-0.2); Basophils % (auto) 0.3 %; Eosinophils # (auto) 0.11 K/uL (0-0.5); Eosinophils % (auto) 0.9 %; Hematocrit (blood only) 42.7 % (42-52); Hemoglobin 14.6 g/dL (14.0-18.0); Immature Granulocytes # (auto) 0.05 K/uL (0.00-0.02); Immature Granulocytes % (auto) 0.4 %; Lymphocytes # (auto) 1.04 K/uL (1.2-3.4); Lymphocytes % (auto) 8.4 %; Mean Corpuscular Hgb Conc 34.2 g/dL (32-36); Mean Corpuscular Volume 88.2 fL (80-100); Mean Platelet Volume 10.7 fL (7.4-10.4); Monocytes # (auto) 0.88 K/uL (0.11-0.59); Monocytes % (auto) 7.1 %; Neutrophils # (auto) 10.33 K/uL (1.4-6.5); Neutrophils % (auto) 82.9 %; Platelet Count 215 K/uL (130-400); RDW Coefficient of Variation 16.4 % (11.5-14.5); RDW Standard Deviation 53.2 fL (36.4-46.3); Red Blood Count 4.84 M/uL (4.7-6.1); White Blood Count 12.45 K/uL (4.8-10.8)
[2018-10-24 06:44] LABS: Prothrombin Time 33.7 Seconds (9.0-12.0)
[2018-10-24 06:46] LABS: INR 3.6 (0.9-1.1)
[2018-10-24 06:57] LABS: BUN Creatinine Ratio 15.8 (10-20); Calcium 8.5 mg/dl (8.5-10.1); Creatinine Clr Calc Pharmacy 64.4 ml/min; Est GFR (African American) 50.3; Est GFR (Non-African American) 43.4; Potassium 3.9 mmol/L (3.5-5.1)
--- NOTE | 2018-10-24 07:48 | Pharmacy Report ---
Pharmacy Abx Initial Consult - Date of Service October 24, 2018 - Pharmacy Dosing Scope Date of Consult: 10/23/18 Consultation requested by: Dr. Hitchcock Pharmacy is consulted to initiate Vancomycin IV dosing therapy, order appropriate labs and adjust drug dose/frequency. Pt is also ordered cefepime. - Subjective The patient is a 72 year old M admitted on 10/23/18 16:06. - Objective Height: 6 ft 3 in Weight: 143 kg Vital Signs (Past 12hrs): Vital Signs Temp Pulse Resp BP Pulse Ox 10/24/18 07:08 36.9 C 92 H 18 124/76 95 10/23/18 23:15 37.0 C 96 H 20 113/70 94 Lab Results (24hrs): Laboratory Tests (24 Hours) 10/24/18 10/24/18 10/23/18 06:09 06:09 11:52 WBC 12.45 H Neut # (Auto) 10.33 H ESR Creatinine 1.56 H D Est Cr Clr Drug Dosing 64.4 C-Reactive Protein 12.90 H 10/23/18 10/23/18 10/23/18 11:52 11:52 11:52 WBC 12.12 H Neut # (Auto) 10.25 H ESR > 90 H Creatinine 1.89 H Est Cr Clr Drug Dosing 53.1 C-Reactive Protein Micro Results: 10/23/18 11:57 Aerobic Blood Culture - Pending Blood Anaerobic Blood Culture - Pending 10/23/18 11:52 Aerobic Blood Culture - Pending Blood Anaerobic Blood Culture - Pending - Risk Factors for Resistance * History of infection with a organism: staph aureus & pseudomonas - Assessment & Plan Assessment 72 year old M initiated on IV Vancomycin + Cefepime for cellulitis of LLE Pt with hx of CKD - will adjust vancomycin dosing interval accordingly Pt with morbid obesity- will adjust dose of vancomycin accordingly to prevent accumulation and supra-therapeutic trough levels Plan Vancomycin IV * Estimated PK Parameters: Vd 0.55 L/kg, Shawn 0.046 hr-1, t1/2 15 hr * Loading dose: 2,750 mg (19 mg/kg) * Maintenance dose: 2,000 mg IV (14 mg/kg) every 18 hours * Goal trough level for SST : 10 to 20 mcg/mL depending on c/s * Trough level ordered for 10/25/18 @ 2100 (prior to the 3rd maintenance dose) This will NOT be steady state, but if the level is therapeutic dose will need decreased to prevent accumulation in morbid obesity once steady state is reached. * A less than traditional dose and/or extended dosing interval has/have been selected due to likelihood of drug accumulation in obese patient/patient with h/o CKD. Cefepime * Not a pharmacy consult * Dosing is appropriate- continue Cefepime 2,000mg IV Q24hrs Pharmacy will continue to follow and will adjust dose/frequency as necessary. Thank you.
[2018-10-24] MEDS: ALLOPURINOL 100 MG TAB PO SCH ×2 (08:40→20:36)
[2018-10-24] MEDS: COLCHICINE 0.6 MG TAB PO SCH (08:41)
[2018-10-24] MEDS: VANCOMYCIN HCL 2,000 MG in SODIUM CHLORIDE 0.9% 500 ML IV SCH (08:41)
[2018-10-24] MEDS: CEFEPIME 2,000 MG in SYRINGE 7.5 ML IV SCH (14:52)
[2018-10-24] MEDS ORDERED: WARFARIN SOD 5 MG TAB PO SCH (16:00)
[2018-10-24 17:30] LABS: Creatinine Clr Calc Pharmacy 63.1 ml/min; Est GFR (African American) 49.2; Est GFR (Non-African American) 42.4
--- NOTE | 2018-10-24 17:48 | Podiatry Consultation ---
Date of Consultation October 24, 2018 History of Present Illness Attending Physician: Kamaljit Castillo patient is a very pleasant 72 y/o male with a history of a previous foot infection in 2017 in the first interspace of bilateral feet, likely this was related to tinea pedis super infection where patient likely started with fungal skin infection that then became super imposed with bacterial infection, today this is also likely the etiology of the ulcer and subsequent infection patient also has a history of DVT bilateral LE and is on coumadin, INR is noted to be 3 blood work obtained in ED shows mildly elevated WBC 12.12, increased (slightly) band cells increased uric acid 9.1 c reactive protein elevated 12.90 and elevated sed rate patient has a history of gout to bilateral knees that in past has needed drained, concern for gouty inflammation to the left ankle due to the pain present and significant swelling; of note patient also has a history of stage 3 kidney disease, chronic Afib and HTN patient is currently on vanco and cefepime patient was evaluated today at bedside, the left and right foot had dressings placed by wound care and they were removed during the visit today to evaluate the first interspaces, which appear macerated with with fungal and possible bact erial infection, cultures were obtained today - recommend to continue abx and await cultures, rec to continue dressings per wound care recs, dressing were reapplied after evaluation, tissue present along the medial and lateral borders of the hallux and 2nd toe were debrided using forceps with no bleeding and no need for anesthesia, debrided the overlying callus tissue, they were cleaned with betadine and saline and dressings with xerform re-applied discussed with family () that I recommend for him to have a topical anti fungal medication added to his dressings such as lotrisone topical antifungal medication as well as the abx he is currently on and the dressings recommend AUSTYN, order placed today recommend for [facility] to be consulted for possible arthrocentesis of the left ankle to evaulate for gout - patient has elevated sed rate and c reactive protein and mild elevation of WBC, the swelling and pain of the ankle is concerning for gout , less concerning for septic arthritis - patient has established history with [facility] ( Dr. Rivas ) and has had knees aspirated previously will continue to monitor the WBC and the culture results Allergies Allergy/AdvReac Type Severity Reaction Status Date / Time hydrochlorothiazide Allergy Unknown "shut down Verified 07/29/18 13:18 kidneys" Home Medications Home Medications Medication Instructions Recorded Confirmed Type metoprolol succinate 100 mg PO QPM #0 08/07/16 10/23/18 History levothyroxine 137 mcg PO DAILY 07/29/18 10/23/18 History allopurinol 100 mg tablet 100 mg PO BID tab 09/12/18 10/23/18 History warfarin 5 mg tablet See Rx Instructions PO UD tab 09/12/18 10/23/18 History colchicine 0.6 mg PO DAILY 10/23/18 10/23/18 History Patient History Medical History Hypertension (Chronic) Chronic atrial fibrillation (Chronic) Chronic kidney disease, stage III (moderate) (Chronic) Chronic ulcer of left foot (Chronic) Cellulitis (Acute) BPH (benign prostatic hyperplasia) Penile hypospadias Renal cyst Atrial fibrillation, chronic (Acute) Benign essential HTN (Acute) Cellulitis of left anterior lower leg (Acute) Hyperkalemia (Acute) Hypothyroidism (Acute) no longer on any meds Obesity (Acute) Prediabetes (Acute) Hearing deficit On anticoagulant therapy Sleep apnea cpap Surgical History History of esophagogastroduodenoscopy (EGD) Family History Other No family history of adverse response to anesthesia Social History Preferred Language: Welsh Communication Ability: Effective Communication Ability Comment: [facility], does not have h/a here [employer] Required: No Beliefs That Will Affect Care: Orthodox Orthodox Beliefs: Latter Day marital status: Current Living Situation: Spouse current occupational status: retired Other Information That Helps Us Care for You: No Feels Safe at Home: Yes Safety Concerns: Feels Safe At This Time Smoking Status: Former smoker Do You Dip or Chew Tobacco: No Smoking End Date: 2013 Second Hand Exposure: No Hx Alcohol Use: Yes Alcohol type: beer, wine and hard liquor Hx Substance Use: No Physical Exam Skin: bilateral first interspace with macerated tissue, much less severe on the right side vs the left, grade 2 jacobsen ulceration with scant areas of fibrotic tissue present, no active drainage, no malodor left ankle moderately tender with significant swelling noted and mild warmth, pain with blankets over the left LE noted non palpable DP left foot - recommend and ordered AUSTYN good cap refill noted to bilateral digits with good skin turgor, no pedal hair present, hemosiderian deposits noted to bilateral legs related to venous disease cultures obtained from bilateral first interspace ulcerations Results & Data Vital Signs (Past 12 Hours) Vital Signs Temp Pulse Resp BP Pulse Ox 10/24/18 15:16 36.5 C 88 18 108/66 95 10/24/18 07:08 36.9 C 92 H 18 124/76 95
[2018-10-24] MEDS ORDERED: LACTATED RINGER'S 1,000 ML IV SCH (18:15)
[2018-10-24] MEDS: METOPROLOL SUCC 50MG EXT REL TAB PO SCH (20:36)
[2018-10-24] MEDS ORDERED: LIDOCAINE 2% JELLY 5 ML TUBE EXT ONE (20:39)
--- NOTE | 2018-10-24 22:49 | Urology Consultation ---
Date of Consultation October 24, 2018 Assessment & Plan (1) Chronic kidney disease, stage III (moderate): Polycystic Kidney Disease (2) Hypospadias, penile: See below Present on Admission?: Yes (3) Acute retention of urine: AUR during admission for significant illness. Discussed LUTS at baseline and prostate issues. No previous bleeding. No previous AUR. had approx 1 L on straight cath last PM. Poor voiding through day. Difficulty placing zimmerman by nursing. 1300 cc out immediately with catheter placement. Tolerating well. Increase activity as tolerated. Normalize bowel function. Due to high volume retention will likely need approx 5-7 days at least of catheter to allow decompression. Will likely need outpatient work up to monitor and assess. History of Present Illness Attending Physician: Kamaljit Castillo History of Present Illness Patient with admission for cellulitis and infection. History of CKD with Adult PKD. Patient had seen nephrology in past. Hydrates well. Worsening LUTS over last few years attributed to prostate enlargement. Developed AUR during hospitalization with increasing incomplete emptying. Patient had straight cath for approx 1 l last night. Had small voids today but nothing significant. Attempted catheter x 2 by nursing without success. Patient found to have distal penile shaft hypospadias with dorsal kang and large urethral plate. 18 Fr Coude catheter placed with lidocaine jelly placed. 1300cc immediately drained with placement. no signficant hematuria or pain. did have worsening abd and pelvic pain and pressure over last few hours. Inability to void. Allergies Allergy/AdvReac Type Severity Reaction Status Date / Time hydrochlorothiazide Allergy Unknown "shut down Verified 07/29/18 13:18 kidneys" Home Medications Home Medications Medication Instructions Recorded Confirmed Type metoprolol succinate 100 mg PO QPM #0 08/07/16 10/23/18 History levothyroxine 137 mcg PO DAILY 07/29/18 10/23/18 History allopurinol 100 mg tablet 100 mg PO BID tab 09/12/18 10/23/18 History warfarin 5 mg tablet See Rx Instructions PO UD tab 09/12/18 10/23/18 History colchicine 0.6 mg PO DAILY 10/23/18 10/23/18 History Patient History Medical History Hypertension (Chronic) Chronic atrial fibrillation (Chronic) Chronic kidney disease, stage III (moderate) (Chronic) Chronic ulcer of left foot (Chronic) Cellulitis (Acute) BPH (benign prostatic hyperplasia) Penile hypospadias Renal cyst Atrial fibrillation, chronic (Acute) Benign essential HTN (Acute) Cellulitis of left anterior lower leg (Acute) Hyperkalemia (Acute) Hypothyroidism (Acute) no longer on any meds Obesity (Acute) Prediabetes (Acute) Hearing deficit On anticoagulant therapy Sleep apnea cpap Surgical History History of esophagogastroduodenoscopy (EGD) Family History Other No family history of adverse response to anesthesia Social History Preferred Language: Comoran Communication Ability: Effective Communication Ability Comment: [place], does not have h/a here Community Leader Required: No Beliefs That Will Affect Care: Methodist Methodist Beliefs: Christian marital status: Current Living Situation: Spouse current occupational status: retired Other Information That Helps Us Care for You: No Feels Safe at Home: Yes Safety Concerns: Feels Safe At This Time Smoking Status: Former smoker Do You Dip or Chew Tobacco: No Smoking End Date: 2013 Second Hand Exposure: No Hx Alcohol Use: Yes Alcohol type: beer, wine and hard liquor Hx Substance Use: No Review of Systems Review of Systems: All systems reviewed & are unremarkable except as noted in HPI & below Constitutional-no fever or chills ENT-no blurred vision, no double vision, no epistaxis, no sore throat Respiratory-no cough, no wheezing, no shortness of breath Cardiac-no palpitations, no chest pain, no syncope GI-no nausea, vomiting, diarrhea, melena, hematochezia -no urinary retention, no urinary incontinence, no dysuria, no hematuria Musculoskeletal-worsening swelling left lower extremity and left foot. Skin-diffuse erythema and tenderness about the left lower extremity and left foot Neuro-no isolated weakness, no paresthesia, no weakness Psych-no depression, no anxiety Physical Exam Physical Exam: General: Alert and oriented x 3 in no acute distress. Patient is well nourished and well kept. HEENT: Normocephalic Atraumatic. Inspection normal. Cranial Nerves 2-12 Grossly intact. Nares are clear. Neck is supple. Normal inspection of face. Bulbous nose. Normal inspection of neck. Neurologic: No deficits on inspection. Baseline for motor function and sensory. Psychologic: Normal affect. Respiratory: Nonlabored. No use of accessory muscles. No tachypnea or dyspnea. Cardiovascular: No tachycardia Skin: [place] and Dry. Significant bandaged cellulitis and chronic wounds on lower extremities. Extremities: Moving without issues. No motor deficits on inspection Lymphatics: Siginificant edema LE with bandaged wounds. Abdomen: Morbid obesity. Soft Non-distended. No acites. No rebound or guarding. Palpable bladder in suprapubic region. Genitourinary: Distal shaft hypospadias with patent meatus. Well developed urethral plate with questionable sinus. Dorsal foreskin kang. 18 Fr Coude draining clear yellow urine. Results & Data Vital Signs (Past 12 Hours) Vital Signs Temp Pulse Resp BP Pulse Ox 10/24/18 15:16 36.5 C 88 18 108/66 95 PG Care Time/CCT Total # of Minutes Spent Total Time Spent with Patient: Total time spent is greater than 50% in coordination of care (as documented) at patient's floor/unit and/or counseling patient:
--- NOTE | 2018-10-24 23:15 | Hospitalist Progress Note ---
Date of Service October 24, 2018 Assessment & Plan (1) Cellulitis of left lower extremity: Continue vancomycin and cefepime. Previous cultures have revealed Pseudomonas and staph aureus. Consulted podiatry. Appreciate their input. (2) Chronic ulcer of left foot: Wound care nurse consultation. aS NOTED ABOVE. (3) Anticoagulated on Coumadin: Daily INR measurements. Adjust Coumadin accordingly (4) Chronic kidney disease, stage III (moderate): Monitor intake and output. Daily labs; CREATININE HAS IMPROVED. CONCERN OVER UNRIANRY RETENTION, MAY REQUIRE ZIMMERMAN. (5) Chronic atrial fibrillation: Controlled rate with metoprolol. Continue Coumadin therapy. Daily INR (6) Hypertension: Controlled with metoprolol (7) Acute retention of urine: May consider urology consult if nursing unable to place zimmerman. Subjective Patient reports feeling well. He is having difficulty urinating. He has not urinating since the evening. Patient denies any fever, chills, nausea, vomiting. Review of Systems Review of Systems: Constitutional-no fever or chills ENT-no blurred vision, no double vision, no epistaxis, no sore throat Respiratory-no cough, no wheezing, no shortness of breath Cardiac-no palpitations, no chest pain, no syncope GI-no nausea, vomiting, diarrhea, melena, hematochezia -no urinary retention, no urinary incontinence, no dysuria, no hematuria Musculoskeletal-worsening swelling left lower extremity and left foot. Skin-diffuse erythema and tenderness about the left lower extremity and left foot Neuro-no isolated weakness, no paresthesia, no weakness Psych-no depression, no anxiety Physical Exam Physical Exam: General-alert and oriented x3, no fevers, no chills HEENT-head atraumatic and normocephalic, TMs intact bilaterally, pupils equal and reactive to light, extraocular muscles intact Neck-no lymphadenopathy or thyromegaly, trachea midline Chest-clear to auscultation percussion. No rales wheezing or rhonchi Cardiac-irregular rhythm, normal S1 and S2, no JVD Abdomen-normal bowel sounds, nontender, no hepatosplenomegaly Extremities-bilateral chronic venous stasis changes and bilateral lower extremity edema more pronounced on the left leg; legs are dressed Neuro-cranial nerves II through XII intact, motor and sensory function within normal limits, strength symmetrical 5/5, no focal deficits Psych-normal affect, normal mood Results & Data Vital Signs (Past 12 Hours) Vital Signs Temp Pulse Resp BP Pulse Ox 10/24/18 15:16 36.5 C 88 18 108/66 95 PG Care Time/CCT Total # of Minutes Spent Total Time Spent with Patient: Total time spent is greater than 50% in coordination of care (as documented) at patient's floor/unit and/or counseling patient:
[2018-10-25] MEDS: VANCOMYCIN HCL 2,000 MG in SODIUM CHLORIDE 0.9% 500 ML IV SCH ×2 (03:59→21:29)
[2018-10-25] MEDS: LEVOTHYROXINE SODIUM 137 MCG TABLET PO SCH (06:11)
[2018-10-25 06:25] LABS: Basophils # (auto) 0.02 K/uL (0-0.2); Basophils % (auto) 0.2 %; Eosinophils # (auto) 0.13 K/uL (0-0.5); Hematocrit (blood only) 41.2 % (42-52); Hemoglobin 14.1 g/dL (14.0-18.0); Immature Granulocytes % (auto) 0.8 %; Lymphocytes # (auto) 1.04 K/uL (1.2-3.4); Lymphocytes % (auto) 8.2 %; Mean Corpuscular Hgb Conc 34.2 g/dL (32-36); Mean Corpuscular Volume 87.7 fL (80-100); Mean Platelet Volume 10.2 fL (7.4-10.4); Monocytes # (auto) 0.94 K/uL (0.11-0.59); Monocytes % (auto) 7.4 %; Neutrophils # (auto) 10.42 K/uL (1.4-6.5); Neutrophils % (auto) 82.4 %; Platelet Count 216 K/uL (130-400); RDW Coefficient of Variation 16.1 % (11.5-14.5); RDW Standard Deviation 51.8 fL (36.4-46.3); White Blood Count 12.65 K/uL (4.8-10.8)
[2018-10-25 06:32] LABS: INR 2.9 (0.9-1.1); Prothrombin Time 27.7 Seconds (9.0-12.0)
[2018-10-25 07:04] LABS: Calcium 8.6 mg/dl (8.5-10.1); Creatinine Clr Calc Pharmacy 62.8 ml/min; Est GFR (African American) 48.8; Est GFR (Non-African American) 42.1; Potassium 3.8 mmol/L (3.5-5.1)
[2018-10-25] MEDS: COLCHICINE 0.6 MG TAB PO SCH (08:07)
[2018-10-25] MEDS: ALLOPURINOL 100 MG TAB PO SCH ×2 (08:07→20:32)
--- NOTE | 2018-10-25 10:17 | Podiatry Consultation ---
Date of Consultation October 25, 2018 History of Present Illness Attending Physician: Kamaljit Castillo Patient seen at bedside this morning, he was in good spirits, stated he felt better than he had on admission, toe ulcers improving, patient still only has pain associated with the left ankle WBC still with mild elevation, wound culture results obtained yesterday pending at this time dressings removed and first interspace ulcers of bilateral feet inspected, improvement noted especially of the left foot with less maceration present, no malodor, granular wound base and stable overall appearance of the feet left LE with swelling present, related to history of DVT and possible gout of the left ankle patient is currently on IV abx for ulcers consisting of vanco and cefepime Patient is awaiting AUSTYN - studies were ordered yesterday Allergies Allergy/AdvReac Type Severity Reaction Status Date / Time hydrochlorothiazide Allergy Unknown "shut down Verified 07/29/18 13:18 kidneys" Home Medications Home Medications Medication Instructions Recorded Confirmed Type metoprolol succinate 100 mg PO QPM #0 08/07/16 10/23/18 History levothyroxine 137 mcg PO DAILY 07/29/18 10/23/18 History allopurinol 100 mg tablet 100 mg PO BID tab 09/12/18 10/23/18 History warfarin 5 mg tablet See Rx Instructions PO UD tab 09/12/18 10/23/18 History colchicine 0.6 mg PO DAILY 10/23/18 10/23/18 History Patient History Medical History Hypertension (Chronic) Chronic atrial fibrillation (Chronic) Chronic kidney disease, stage III (moderate) (Chronic) Chronic ulcer of left foot (Chronic) Cellulitis (Acute) BPH (benign prostatic hyperplasia) Penile hypospadias Renal cyst Atrial fibrillation, chronic (Acute) Benign essential HTN (Acute) Cellulitis of left anterior lower leg (Acute) Hyperkalemia (Acute) Hypothyroidism (Acute) no longer on any meds Obesity (Acute) Prediabetes (Acute) Hearing deficit On anticoagulant therapy Sleep apnea cpap Surgical History History of esophagogastroduodenoscopy (EGD) Family History Other No family history of adverse response to anesthesia Social History Preferred Language: Mauritian Communication Ability: Effective Communication Ability Comment: [place], does not have h/a here Journeyman 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 Required: No Beliefs That Will Affect Care: Rastafari Rastafari Beliefs: Catholic marital status: Current Living Situation: Spouse current occupational status: retired Other Information That Helps Us Care for You: No Feels Safe at Home: Yes Safety Concerns: Feels Safe At This Time Smoking Status: Former smoker Do You Dip or Chew Tobacco: No ; Smoking End Date: 2013 ; Second Hand Exposure: No ; Hx Alcohol Use: Yes Alcohol type: beer, wine and hard liquor Hx Substance Use: No Physical Exam Skin: first interspace ulcerations, improvement noted, dressings removed and areas cleaned with saline; no malodor and improved macerated tissue bilaterally; right foot has a fissure present at the plantar aspect of the hallux from peeling skin with some scant bleeding noted with removal of dressings dressings reapplied consisting of xerform and gauze recommend anti fungal medication to interspaces as well to help prevent another fungal infection Results & Data Vital Signs (Past 12 Hours) Vital Signs Temp Pulse Resp BP Pulse Ox 10/25/18 08:14 37.0 C 96 H 20 149/81 H 95 10/24/18 23:56 37.2 C 97 H 20 162/98 H 94
--- NOTE | 2018-10-25 10:54 | Urology Progress Note ---
Date of Service October 25, 2018 Assessment & Plan (1) Acute retention of urine: (2) Hypospadias, penile: 72yo M with cellulitis; LUTS, AUR, hypospadias with indwelling catheter in place. Pt doing well from standpoint. Pt understands plan to keep zimmerman catheter in place for approx 5-7days, can be removed either inpatient or by our service as outpatient. We will initiate tamsulosin for LUTS. Watch for lightheadedness/dizziness. Thank you for allowing us to participate in the acute care of Mr. Rachel. Please reconsult with additional questions, concerns or changes in patient status. Subjective 72yo M admitted with LE cellulitis/foot ulcers with developing AUR with incomplete emptying during admission. Dr. Caballero was consulted for difficulty zimmerman placement last evening, please see consult for details. Pt tolerating catheter well today. Draining cloudy to clear yellow with mild sediment, small clots. No sign of urethral trauma or bleeding on exam today. No other issues or concerns. Review of Systems Review of Systems: Constitutional-no fever or chills ENT-no blurred vision, no double vision, no epistaxis, no sore throat Respiratory-no cough, no wheezing, no shortness of breath Cardiac-no palpitations, no chest pain, no syncope GI-no nausea, vomiting, diarrhea, melena, hematochezia - no dysuria, no hematuria Musculoskeletal-worsening swelling left lower extremity and left foot. Skin- LE wounds; no pain associated Neuro-no isolated weakness, no paresthesia, no weakness Psych-no depression, no anxiety Physical Exam Constitutional: no acute distress and not ill appearing Eyes: no nystagmus ENMT: Ears: no hearing impairment Neck: trachea midline Respiratory: no respiratory distress and no cough Cardiovascular: Vessels: no JVD Chest (Breasts): Chest: normal inspection of chest Gastrointestinal (Abdomen): Inspection/Auscultation: abdomen not distended and no abdominal edema Percussion/Palpation: abdomen soft; abdomen nontender Musculoskeletal: Head/Neck/Chest: normocephalic and head atraumatic Skin: LE wounds not assessed Neurologic: awake; not confused and not obtunded Psychiatric: Orientation: alert and oriented x 3 Eye Contact: good eye contact Affect: no depressed affect Genitourinary: bladder normal to inspection; no CVA tenderness distal penile hypospadius - zimmerman catheter intact. draining clear/cloudy with mild sediment/small clots. Lymphatic: no lymphadenopathy and no lymphedema Results & Data Vital Signs (Past 12 Hours) Vital Signs Temp Pulse Resp BP Pulse Ox 10/25/18 08:14 37.0 C 96 H 20 149/81 H 95 10/24/18 23:56 37.2 C 97 H 20 162/98 H 94 Laboratory Results Laboratory Results - last 48 hr 10/23/18 10/23/18 10/23/18 11:52 11:52 11:52 WBC 12.12 H RBC 5.08 Hgb 15.2 Hct 44.5 MCV 87.6 MCH 29.9 MCHC 34.2 RDW Std Deviation 51.9 H RDW Coeff of [place] 16.2 H Plt Count 223 MPV 11.1 H Immature Gran % (Auto) 0.3 Neut % (Auto) 84.5 Lymph % (Auto) 7.2 [place] % (Auto) 7.1 Eos % (Auto) 0.7 Baso % (Auto) 0.2 Immature Gran # (Auto) 0.04 H Neut # (Auto) 10.25 H Lymph # (Auto) 0.87 L [place] # (Auto) 0.86 H Eos # (Auto) 0.08 Baso # (Auto) 0.02 ESR > 90 H PT INR APTT PTT Ratio Sodium 136 Potassium 3.9 Chloride 106 Carbon Dioxide 22 Anion Gap 8.0 BUN 31 H Creatinine 1.89 H Est Cr Clr Drug Dosing 53.1 Est GFR ( Amer) 39.9 Est GFR (Non-Af Amer) 34.4 BUN/Creatinine Ratio 16.2 Glucose 106 H Uric Acid Calcium 9.0 Total Bilirubin 0.9 AST 25 ALT 37 Alkaline Phosphatase 98 C-Reactive Protein Total Protein 8.4 H Albumin 2.9 L Globulin 5.5 H Albumin/Globulin Ratio 0.5 L Urine Color Urine Appearance Urine pH Ur Specific [place] Urine Protein Urine Glucose (UA) Urine Ketones Urine Blood Urine Nitrite Urine Bilirubin Urine Urobilinogen Ur Leukocyte Esterase Urine WBC (Auto) Urine RBC (Auto) U Hyaline Cast (Auto) U Epithel Cells (Auto) Urine Bacteria (Auto) 10/23/18 10/23/18 10/23/18 11:52 11:52 19:48 WBC RBC Hgb Hct MCV MCH MCHC RDW Std Deviation RDW Coeff of [place] Plt Count MPV Immature Gran % (Auto) Neut % (Auto) Lymph % (Auto) [place] % (Auto) Eos % (Auto) Baso % (Auto) Immature Gran # (Auto) Neut # (Auto) Lymph # (Auto) [place] # (Auto) Eos # (Auto) Baso # (Auto) ESR PT 28.1 H INR 3.0 H APTT 50.5 H* PTT Ratio 1.9 Sodium Potassium Chloride Carbon Dioxide Anion Gap BUN Creatinine Est Cr Clr Drug Dosing Est GFR ( Amer) Est GFR (Non-Af Amer) BUN/Creatinine Ratio Glucose Uric Acid 9.1 H Calcium Total Bilirubin AST ALT Alkaline Phosphatase C-Reactive Protein 12.90 H Total Protein Albumin Globulin Albumin/Globulin Ratio Urine Color Yellow Urine Appearance Clear Urine pH 5.0 Ur Specific [place] 1.024 Urine Protein 2+ H Urine Glucose (UA) Negative Urine Ketones Trace H Urine Blood Negative Urine Nitrite Negative Urine Bilirubin Negative Urine Urobilinogen Negative Ur Leukocyte Esterase Negative Urine WBC (Auto) 0 Urine RBC (Auto) 0-4 U Hyaline Cast (Auto) 0 U Epithel Cells (Auto) 0-5 Urine Bacteria (Auto) Negative 10/24/18 10/24/18 10/24/18 06:09 06:09 06:09 WBC 12.45 H RBC 4.84 Hgb 14.6 Hct 42.7 MCV 88.2 MCH 30.2 MCHC 34.2 RDW Std Deviation 53.2 H RDW Coeff of [place] 16.4 H Plt Count 215 MPV 10.7 H Immature Gran % (Auto) 0.4 Neut % (Auto) 82.9 Lymph % (Auto) 8.4 [place] % (Auto) 7.1 Eos % (Auto) 0.9 Baso % (Auto) 0.3 Immature Gran # (Auto) 0.05 H Neut # (Auto) 10.33 H Lymph # (Auto) 1.04 L [place] # (Auto) 0.88 H Eos # (Auto) 0.11 Baso # (Auto) 0.04 ESR PT 33.7 H INR 3.6 H APTT PTT Ratio Sodium 134 L Potassium 3.9 Chloride 107 Carbon Dioxide 20 L Anion Gap 7.0 BUN 25 H Creatinine 1.56 H D Est Cr Clr Drug Dosing 64.4 Est GFR ( Amer) 50.3 Est GFR (Non-Af Amer) 43.4 BUN/Creatinine Ratio 15.8 Glucose 113 H Uric Acid Calcium 8.5 Total Bilirubin AST ALT Alkaline Phosphatase C-Reactive Protein Total Protein Albumin Globulin Albumin/Globulin Ratio Urine Color Urine Appearance Urine pH Ur Specific [place] Urine Protein Urine Glucose (UA) Urine Ketones Urine Blood Urine Nitrite Urine Bilirubin Urine Urobilinogen Ur Leukocyte Esterase Urine WBC (Auto) Urine RBC (Auto) U Hyaline Cast (Auto) U Epithel Cells (Auto) Urine Bacteria (Auto) 10/24/18 10/25/18 10/25/18 17:00 06:05 06:05 WBC 12.65 H RBC 4.70 Hgb 14.1 Hct 41.2 L MCV 87.7 MCH 30.0 MCHC 34.2 RDW Std Deviation 51.8 H RDW Coeff of [place] 16.1 H Plt Count 216 MPV 10.2 Immature Gran % (Auto) 0.8 Neut % (Auto) 82.4 Lymph % (Auto) 8.2 [place] % (Auto) 7.4 Eos % (Auto) 1.0 Baso % (Auto) 0.2 Immature Gran # (Auto) 0.10 H Neut # (Auto) 10.42 H Lymph # (Auto) 1.04 L [place] # (Auto) 0.94 H Eos # (Auto) 0.13 Baso # (Auto) 0.02 ESR PT 27.7 H INR 2.9 H APTT PTT Ratio Sodium Potassium Chloride Carbon Dioxide Anion Gap BUN Creatinine 1.59 H Est Cr Clr Drug Dosing 63.1 Est GFR ( Amer) 49.2 Est GFR (Non-Af Amer) 42.4 BUN/Creatinine Ratio Glucose Uric Acid Calcium Total Bilirubin AST ALT Alkaline Phosphatase C-Reactive Protein Total Protein Albumin Globulin Albumin/Globulin Ratio Urine Color Urine Appearance Urine pH Ur Specific [place] Urine Protein Urine Glucose (UA) Urine Ketones Urine Blood Urine Nitrite Urine Bilirubin Urine Urobilinogen Ur Leukocyte Esterase Urine WBC (Auto) Urine RBC (Auto) U Hyaline Cast (Auto) U Epithel Cells (Auto) Urine Bacteria (Auto) 10/25/18 06:05 WBC RBC Hgb Hct MCV MCH MCHC RDW Std Deviation RDW Coeff of [place] Plt Count MPV Immature Gran % (Auto) Neut % (Auto) Lymph % (Auto) [place] % (Auto) Eos % (Auto) Baso % (Auto) Immature Gran # (Auto) Neut # (Auto) Lymph # (Auto) [place] # (Auto) Eos # (Auto) Baso # (Auto) ESR PT INR APTT PTT Ratio Sodium 135 L Potassium 3.8 Chloride 106 Carbon Dioxide 22 Anion Gap 7.0 BUN 22 H Creatinine 1.60 H Est Cr Clr Drug Dosing 62.8 Est GFR ( Amer) 48.8 Est GFR (Non-Af Amer) 42.1 BUN/Creatinine Ratio 14.0 Glucose 112 H Uric Acid Calcium 8.6 Total Bilirubin AST ALT Alkaline Phosphatase C-Reactive Protein Total Protein Albumin Globulin Albumin/Globulin Ratio Urine Color Urine Appearance Urine pH Ur Specific [place] Urine Protein Urine Glucose (UA) Urine Ketones Urine Blood Urine Nitrite Urine Bilirubin Urine Urobilinogen Ur Leukocyte Esterase Urine WBC (Auto) Urine RBC (Auto) U Hyaline Cast (Auto) U Epithel Cells (Auto) Urine Bacteria (Auto)
--- NOTE | 2018-10-25 14:13 | Orthopedic Consultation ---
Date of Consultation October 25, 2018 Assessment & Plan (1) Ankle pain, left: Discuss findings with Dr Vines. Consider ankle aspiration. I, Dr. Vines, saw and examined the patient and discussed the management with my PA. I reviewed my PAs note and agree with the documented findings and discussed the following plan of care I developed. In regards to an aspiration, the patient declined an aspiration of the right knee as it was very painful the last time this was performed in the office when he stated that his pain was not so bad in the knee. He has not had any x-rays since May, and portable x-rays AP and lateral of the right knee can be obtained. In regards to an aspiration of his left ankle, due to the erythema, and his elevated INR, I would not recommend an aspiration for fear of creating a hemarthrosis and potentially inoculating the ankle. As the patient has a history of gout, I would not recommend utilizing ice. Compression may be helpful. Discussed with the primary service possibility of titrating his colchicine dose. Due to his kidney disease unfortunately he cannot take indomethacin. I also spoke with Dr. Vargas and he will be weightbearing as tolerated with a walker. Physical therapy can work with him on range of motion, generalized strengthening, and gait training. Occupational therapy can work with him for his ADLs. He should continue with the antibiotics per the primary service. Continue his wound care. Continue care per the primary service. He may follow-up as an outpatient. If there are any further orthopedic setbacks, please recall the orthopedic service. Thank you for allowing me to participate in this patient's care. (2) Right knee pain: Discuss findings with Dr Vines. Consider knee aspiration. History of Present Illness Reason for Consultation: Right knee and left ankle pain. Requesting Physician: Dr Vines Attending Physician: Kamaljit Castillo History of Present Illness The patient is a 72 year old male admitted to [facility] on 10-23-18 from the ED. He had complaints of a constant left ankle pain that began on 10-22-18. The patient has had previous issues with his left leg with history of wounds on the toes of both of his feet that have been present for 3-4 months. The patient reports he treats those wounds himself with Silvadene and Calmoseptine. However his left ankle pain is new. The patient also has right knee pain. He says he was diagnosed with gout a few months ago, after being seen in ED and having right knee aspirated. He recently started colchichine about 4wks ago. The patient states that he typically experiences gout in both knees but not in ankles and toes. The patient also reports 2 clots in left leg and 1 clot in his right leg. The patient also denies fever, vomiting, chest pain, shortness of breath, or abdominal pain. Blood work was done in the ED, WBC, Sed Rate, CRP, Uric acid were elevated. He was started on vancomycin and cefepime. Patient is on chronic coumadin for atrial fibrillation and has chronic kidney disease. Patient has been seen by hospitalist, urologist, and manager property. Patient reports he has not yet gotten out of bed since being admitted. He is to be getting AUSTYN to B LE today ordered by podiatry. Allergies Allergy/AdvReac Type Severity Reaction Status Date / Time hydrochlorothiazide Allergy Unknown "shut down Verified 07/29/18 13:18 kidneys" Home Medications Home Medications Medication Instructions Recorded Confirmed Type metoprolol succinate 100 mg PO QPM #0 08/07/16 10/23/18 History levothyroxine 137 mcg PO DAILY 07/29/18 10/23/18 History allopurinol 100 mg tablet 100 mg PO BID tab 09/12/18 10/23/18 History warfarin 5 mg tablet See Rx Instructions PO UD tab 09/12/18 10/23/18 History colchicine 0.6 mg PO DAILY 10/23/18 10/23/18 History Patient History Medical History Hypertension (Chronic) Chronic atrial fibrillation (Chronic) Chronic kidney disease, stage III (moderate) (Chronic) Chronic ulcer of left foot (Chronic) Cellulitis (Acute) BPH (benign prostatic hyperplasia) Penile hypospadias Renal cyst Atrial fibrillation, chronic (Acute) Benign essential HTN (Acute) Cellulitis of left anterior lower leg (Acute) Hyperkalemia (Acute) Hypothyroidism (Acute) no longer on any meds Obesity (Acute) Prediabetes (Acute) Hearing deficit On anticoagulant therapy Sleep apnea cpap Surgical History History of esophagogastroduodenoscopy (EGD) Family History Other No family history of adverse response to anesthesia Social History Preferred Language: Syriac Communication Ability: Effective Communication Ability Comment: [place], does not have h/a here Candy Separator Hard Required: No Beliefs That Will Affect Care: Latter-Day Latter-Day Beliefs: Alevism marital status: Current Living Situation: Spouse current occupational status: retired Other Information That Helps Us Care for You: No Feels Safe at Home: Yes Safety Concerns: Feels Safe At This Time Smoking Status: Former smoker Do You Dip or Chew Tobacco: No ; Smoking End Date: 2013 ; Second Hand Exposure: No ; Hx Alcohol Use: Yes Alcohol type: beer, wine and hard liquor Hx Substance Use: No Review of Systems Review of Systems: Patient admits to Left ankle > Right knee pain. Denies fever chills sweats. Denies chest pain, SOB. Denies lightheadedness, nausea, vomiting. Physical Exam Physical Exam: Patient laying in bed. in room. NO teds/scds/foot pumps donned. Left ankle exam: Left foot dressings intact. left ankle diffusely tender with significant swelling noted and mild warmth. Discomfort with motion. Difficult to palpate DP to left foot. Significant pitting edema Left LE. Tender to calf but neg homans. Good capillary refill. Hemosideran deposits noted. Chronic venous insufficiency skin changes. Right knee exam: 1+ effusion. Not red or warm. 0-120 ROM. Quad intact. Able to do SLR. Crepitus noted. NV intact R LE. 1 + pitting edema. Calve soft. Neg homans. I, Dr. Vines, agree with the above findings. In addition his left foot dressing was removed, he has erythema and swelling of the toes, foot, and ankle. Diffuse tenderness to palpation about the foot and ankle. Results & Data Vital Signs (Past 12 Hours) Vital Signs Temp Pulse Resp BP Pulse Ox 10/25/18 08:14 37.0 C 96 H 20 149/81 H 95 Laboratory Results 10/25/18 10/25/18 10/25/18 Range/Units 06:05 06:05 06:05 WBC 12.65 H (4.8-10.8) K/uL RBC 4.70 (4.7-6.1) M/uL Hgb 14.1 (14.0-18.0) g/dL Hct 41.2 L (42-52) % MCV 87.7 (80-100) fL MCH 30.0 (25-34) pg MCHC 34.2 (32-36) g/dL RDW Std Deviation 51.8 H (36.4-46.3) fL RDW Coeff of [place] 16.1 H (11.5-14.5) % Plt Count 216 (130-400) K/uL MPV 10.2 (7.4-10.4) fL Immature Gran % (Auto) 0.8 % Neut % (Auto) 82.4 % Lymph % (Auto) 8.2 % [place] % (Auto) 7.4 % Eos % (Auto) 1.0 % Baso % (Auto) 0.2 % Immature Gran # (Auto) 0.10 H (0.00-0.02) K/uL Neut # (Auto) 10.42 H (1.4-6.5) K/uL Lymph # (Auto) 1.04 L (1.2-3.4) K/uL [place] # (Auto) 0.94 H (0.11-0.59) K/uL Eos # (Auto) 0.13 (0-0.5) K/uL Baso # (Auto) 0.02 (0-0.2) K/uL PT 27.7 H (9.0-12.0) Seconds INR 2.9 H (0.9-1.1) Sodium 135 L (136-145) mmol/L Potassium 3.8 (3.5-5.1) mmol/L Chloride 106 (98-107) mmol/L Carbon Dioxide 22 (21-32) mmol/L Anion Gap 7.0 (3-11) BUN 22 H (7-18) mg/dl Creatinine 1.60 H (0.6-1.4) mg/dl Est Cr Clr Drug Dosing 62.8 ml/min Est GFR ( Amer) 48.8 Est GFR (Non-Af Amer) 42.1 BUN/Creatinine Ratio 14.0 (10-20) Glucose 112 H (70-99) mg/dl Calcium 8.6 (8.5-10.1) mg/dl 10/24/18 Range/Units 17:00 WBC (4.8-10.8) K/uL RBC (4.7-6.1) M/uL Hgb (14.0-18.0) g/dL Hct (42-52) % MCV (80-100) fL MCH (25-34) pg MCHC (32-36) g/dL RDW Std Deviation (36.4-46.3) fL RDW Coeff of [place] (11.5-14.5) % Plt Count (130-400) K/uL MPV (7.4-10.4) fL Immature Gran % (Auto) % Neut % (Auto) % Lymph % (Auto) % [place] % (Auto) % Eos % (Auto) % Baso % (Auto) % Immature Gran # (Auto) (0.00-0.02) K/uL Neut # (Auto) (1.4-6.5) K/uL Lymph # (Auto) (1.2-3.4) K/uL [place] # (Auto) (0.11-0.59) K/uL Eos # (Auto) (0-0.5) K/uL Baso # (Auto) (0-0.2) K/uL PT (9.0-12.0) Seconds INR (0.9-1.1) Sodium (136-145) mmol/L Potassium (3.5-5.1) mmol/L Chloride (98-107) mmol/L Carbon Dioxide (21-32) mmol/L Anion Gap (3-11) BUN (7-18) mg/dl Creatinine 1.59 H (0.6-1.4) mg/dl Est Cr Clr Drug Dosing 63.1 ml/min Est GFR ( Amer) 49.2 Est GFR (Non-Af Amer) 42.4 BUN/Creatinine Ratio (10-20) Glucose (70-99) mg/dl Calcium (8.5-10.1) mg/dl Diagnostic Findings LEFT ANKLE 3 VIEWS HISTORY: Left ankle pain/swelling eval for fx/effusion COMPARISON: None. FINDINGS: No acute fracture or dislocation. Diffuse soft tissue edema. Plantar heel spur. Small well-corticated ossific density adjacent to the lateral malleolus consistent with old avulsion injury. Focal small lucency at the lateral talar dome. No radiopaque foreign bodies. IMPRESSION: Diffuse soft tissue edema within the left ankle. No acute fracture or dislocation. Focal small lucency at the lateral talar dome may represent an o steochondral defect. XR foot LT min 3V routine CLINICAL HISTORY: Infection between great toe and 2nd toe eval for osteo COMPARISON: None BELOW XRAYS FROM 06-19-18: XR knee RT 2V routine CLINICAL HISTORY: swelling pain COMPARISON: 06/18/2018 DISCUSSION: Moderate degenerative change all major joint compartments. No evidence for fracture. Increase in volume over a suprapatellar joint effusion. There is no evidence for soft tissue swelling. IMPRESSION: 1. Increased volume of a joint effusion. 2. Unchanged tricompartmental moderate osteoarthritic change DISCUSSION: No fractures are visualized. The bones are osteopenic. There are moderate arthritic changes within the midfoot. There is a plantar calcaneal spur. There is moderate to marked dorsal soft tissue swelling. There are no bony destructive changes to indicate osteomyelitis. There is an old healed fourth metatarsal fracture IMPRESSION: 1. No acute fractures 2. No conventional radiographic evidence of osteomyelitis 3. Moderate arthritic changes within the midfoot 4. Prominent soft tissue edema (1) Ankle pain, left Chronicity: unspecified Qualified Code(s): M25.572 - Pain in left ankle and joints of left foot
[2018-10-25] MEDS: CEFEPIME 2,000 MG in SYRINGE 7.5 ML IV SCH (15:27)
[2018-10-25] MEDS: WARFARIN SOD 7.5 MG TAB PO SCH (15:28)
--- NOTE | 2018-10-25 15:55 | Ultrasound Report ---
US arterial duplex LE BI CLINICAL HISTORY: chronic ulcerations COMPARISON STUDY: 10/29/2018 FINDINGS: The right brachial artery systolic pressure measured 105 mmHg. The posterior tibial systolic arterial pressures measured 131 mmHg in the right measured 140 mmHg on the left. The dorsalis pedis systolic arterial pressures measured 145 mmHg on the right and 111 mmHg on the lef t On the right there is triphasic flow within the right common femoral, superficial femoral, and poplit eal, posterior tibial, and anterior tibial arteries. There is a probable distal right peroneal occlus ion. On the left there was triphasic flow within the left common femoral, superficial femoral, and poplite al arteries. There is biphasic flow within the left anterior tibial, posterior tibial, and peroneal a rteries. There is a complex right popliteal fossa cyst. IMPRESSION: 1. 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 2. Otherwise no evidence of significant arterial stenosis. 3. Ankle brachial indices are felt to be within normal limits Electronically signed by: Christiano Liu M.D. 10/25/2018 3:53 PM
--- NOTE | 2018-10-25 17:40 | XRay Report ---
XR knee RT 2V routine HISTORY: 72 years-old Male pain acute right knee pain without reported trauma COMPARISON: Right knee radiographs 06/19/2017 TECHNIQUE: 2 views of the right knee FINDINGS: Moderate patellofemoral and lateral compartment with mild to moderate medial compartment osteoarthrit is. Soft tissue swelling is noted circumferentially about the knee. Moderate sized joint effusion has decreased in size from comparison. No acute fracture, dislocation or opaque foreign body. IMPRESSION: 1. Moderate joint effusion without acute fracture or dislocation. 2. 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 The above report was generated using voice recognition software. It may contain grammatical, syntax o r spelling errors. Electronically signed by: Rodríguez Castillo M.D. 10/25/2018 5:39 PM
[2018-10-25] MEDS ORDERED: VANCOMYCIN TROUGH ONE (20:30)
[2018-10-25] MEDS: METOPROLOL SUCC 50MG EXT REL TAB PO SCH (20:32)
[2018-10-25] MEDS: TAMSULOSIN HCL 0.4 MG CAP PO SCH (20:32)
--- NOTE | 2018-10-25 20:50 | Hospitalist Progress Note ---
Date of Service October 25, 2018 Assessment & Plan (1) Cellulitis of left lower extremity: Continue vancomycin and cefepime. Previous cultures have revealed Pseudomonas and staph aureus. Consulted podiatry. Appreciate their input. Await culture. Continue current antibiotics. Podiatry changed dressing order. Also order arterial ultrasound of lower extremity. (2) Chronic ulcer of left foot: Wound care nurse consultation. aS NOTED ABOVE. (3) Anticoagulated on Coumadin: Daily INR measurements. Adjust Coumadin accordingly (4) Chronic kidney disease, stage III (moderate): Monitor intake and output. Daily labs; CREATININE HAS IMPROVED. Patient has zimmerman (placed on 10/25) (5) Chronic atrial fibrillation: Controlled rate with metoprolol. Continue Coumadin therapy. Daily INR (6) Hypertension: Controlled with metoprolol (7) Acute retention of urine: May consider urology consult if nursing unable to place zimmerman. Subjective Overnight, patient required zimmerman cath placement as he was not having any urinary output. Patient currently is feeling well. No new complaints. Review of Systems Review of Systems: Constitutional-no fever or chills ENT-no blurred vision, no double vision, no epistaxis, no sore throat Respiratory-no cough, no wheezing, no shortness of breath Cardiac-no palpitations, no chest pain, no syncope GI-no nausea, vomiting, diarrhea, melena, hematochezia -no urinary retention, no urinary incontinence, no dysuria, no hematuria Musculoskeletal-worsening swelling left lower extremity and left foot. Skin-diffuse erythema and tenderness about the left lower extremity and left foot Neuro-no isolated weakness, no paresthesia, no weakness Psych-no depression, no anxiety Physical Exam Physical Exam: General-alert and oriented x3, no fevers, no chills HEENT-head atraumatic and normocephalic, TMs intact bilaterally, pupils equal and reactive to light, extraocular muscles intact Neck-no lymphadenopathy or thyromegaly, trachea midline Chest-clear to auscultation percussion. No rales wheezing or rhonchi Cardiac-irregular rhythm, normal S1 and S2, no JVD Abdomen-normal bowel sounds, nontender, no hepatosplenomegaly Extremities-bilateral chronic venous stasis changes and bilateral lower extremit y edema more pronounced on the left leg; legs are dressed Neuro-cranial nerves II through XII intact, motor and sensory function within normal limits, strength symmetrical 5/5, no focal deficits Psych-normal affect, normal mood Results & Data Vital Signs (Past 12 Hours) Vital Signs Temp Pulse Resp BP Pulse Ox 10/25/18 20:30 96 H 126/82 10/25/18 15:37 36.6 C 90 18 125/81 94 PG Care Time/CCT Total # of Minutes Spent Total Time Spent with Patient: Total time spent is greater than 50% in coordination of care (as documented) at patient's floor/unit and/or counseling patient:
[2018-10-26] MEDS: LEVOTHYROXINE SODIUM 137 MCG TABLET PO SCH (05:48)
[2018-10-26 06:07] LABS: Basophils # (auto) 0.03 K/uL (0-0.2); Basophils % (auto) 0.2 %; Eosinophils # (auto) 0.19 K/uL (0-0.5); Eosinophils % (auto) 1.6 %; Hematocrit (blood only) 41.5 % (42-52); Immature Granulocytes # (auto) 0.11 K/uL (0.00-0.02); Immature Granulocytes % (auto) 0.9 %; Lymphocytes # (auto) 0.97 K/uL (1.2-3.4); Mean Corpuscular Hgb Conc 33.7 g/dL (32-36); Mean Corpuscular Volume 87.9 fL (80-100); Mean Platelet Volume 10.6 fL (7.4-10.4); Monocytes # (auto) 0.77 K/uL (0.11-0.59); Monocytes % (auto) 6.4 %; Neutrophils % (auto) 82.9 %; Platelet Count 248 K/uL (130-400); RDW Standard Deviation 51.5 fL (36.4-46.3); Red Blood Count 4.72 M/uL (4.7-6.1); White Blood Count 12.07 K/uL (4.8-10.8)
[2018-10-26 06:35] LABS: BUN Creatinine Ratio 13.5 (10-20); Calcium 8.6 mg/dl (8.5-10.1); Creatinine Clr Calc Pharmacy 69.7 ml/min; Est GFR (African American) 55.4; Est GFR (Non-African American) 47.8; Potassium 3.9 mmol/L (3.5-5.1)
[2018-10-26 07:17] LABS: INR 2.7 (0.9-1.1); Prothrombin Time 25.8 Seconds (9.0-12.0)
[2018-10-26] MEDS: ALLOPURINOL 100 MG TAB PO SCH ×2 (08:14→20:07)
[2018-10-26] MEDS: COLCHICINE 0.6 MG TAB PO SCH (08:14)
--- NOTE | 2018-10-26 09:26 | Pharmacy Report ---
Pharmacy Abx Dose Short Note - Date of Service October 26, 2018 - Assessment & Plan Assessment 72 year old M receiving Vancomycin 2,000mg for treatment of q18h Day # 4 of antimicrobial therapy. Laboratory Tests 10/25/18 20:31 Vancomycin Trough 14.6 Plan Vancomycin * Trough level of 14.6 mcg/mL is therapeutic. * Continue dose of 2000 mg IV every 18 hours * Goal trough level : ~15 mcg/mL * Trough or random level ordered for: 10/28/18 before 2100 dose. Pharmacy will continue to follow and will adjust dose/frequency as necessary. Thank you.
[2018-10-26] MEDS: WARFARIN SOD 7.5 MG TAB PO SCH (15:28)
[2018-10-26] MEDS: VANCOMYCIN HCL 2,000 MG in SODIUM CHLORIDE 0.9% 500 ML IV SCH (15:28)
[2018-10-26] MEDS: CEFEPIME 2,000 MG in SYRINGE 7.5 ML IV SCH (15:28)
--- NOTE | 2018-10-26 16:19 | Hospitalist Progress Note ---
Date of Service October 26, 2018 Assessment & Plan (1) Cellulitis of left lower extremity: Continue vancomycin and cefepime. Previous cultures have revealed Pseudomonas and staph aureus. Consulted podiatry. Appreciate their input. current cultures growing Pseudomonas, Staph aureus and group B strep Continue current antibiotics. Podiatry changed dressing order. Also order arterial ultrasound of lower extremity -- AUSTYN are within normal limits (2) Chronic ulcer of left foot: Wound care nurse consultation. NOTED ABOVE. (3) Anticoagulated on Coumadin: INR 2.7 on 10/26 continue to monitor (4) Chronic kidney disease, stage III (moderate): Monitor intake and output. Daily labs; CREATININE HAS IMPROVED. Patient has zimmerman (placed on 10/25) Cr 1.4 on 10/26, making adequate urine (5) Chronic atrial fibrillation: Controlled rate with metoprolol. Continue Coumadin therapy. Daily INR (6) Hypertension: Controlled with metoprolol (7) Acute retention of urine: continue zimmerman, likely perform voiding trial prior to discharge Subjective patient sitting up in a chair, feeling well only complaint is the pain in left ankle, difficult to walk at times had zimmerman placed the night prior no fever or chills appetite intact, no nausea, moving bowels no chest pain or dyspnea reviewed labs, WBC 12k, Cr 1.4 and electrolytes stable Review of Systems Review of Systems: All systems reviewed & are unremarkable except as noted in HPI & below Constitutional: no fever and no sweats Respiratory: no cough and no dyspnea Cardiovascular: no chest pain and no edema Gastrointestinal: no abdominal pain, no nausea, no vomiting, no constipation and no diarrhea/loose stools Musculoskeletal: + joint pain (left ankle) Physical Exam Constitutional: WD/WN, vitals as above + obese Eyes: PERRL, conjunctivae normal, anicteric sclerae ENMT: external ear and nose normal, oropharynx normal Neck: trachea midline, no thyromegaly Respiratory: normal respiratory effort, lungs clear to auscultation Cardiovascular: RRR, no murmur, no edema Gastrointestinal (Abdomen): normal bowel sounds, soft, nontender, no hepatosplenomegaly Musculoskeletal: no cyanosis or clubbing, extremities motor strength 5/5 Skin: no rashes, warm and dry Neurologic: patellar DTR's 2+ bilat, sensation intact and PERRL, EOMI, accommodation nl, no face palsy, no dysarthria Psychiatric: A+Ox3, euthymic affect Lymphatic: no cervical or axillary lymphadenopathy Results & Data Vital Signs (Past 12 Hours) Vital Signs Temp Pulse Pulse Resp BP Pulse Ox 10/26/18 16:00 36.8 C 81 20 136/98 97 10/26/18 07:32 36.7 C 87 20 112/71 96 Laboratory Results Laboratory Results - last 24 hr 10/27/18 10/27/18 08:04 08:04 WBC 11.76 H RBC 4.69 L Hgb 14.3 Hct 41.2 L MCV 87.8 MCH 30.5 MCHC 34.7 RDW Std Deviation 51.0 H RDW Coeff of [place]serr[place] 16.0 H Plt Count 259 MPV 9.8 Immature Gran % (Auto) 1.4 Neut % (Auto) 79.9 Lymph % (Auto) 10.1 [place] % (Auto) 5.6 Eos % (Auto) 2.7 Baso % (Auto) 0.3 Immature Gran # (Auto) 0.17 H Neut # (Auto) 9.39 H Lymph # (Auto) 1.19 L [place] # (Auto) 0.66 H Eos # (Auto) 0.32 Baso # (Auto) 0.03 Sodium 136 Potassium 4.0 Chloride 106 Carbon Dioxide 23 Anion Gap 7.0 BUN 20 H Creatinine 1.46 H Est Cr Clr Drug Dosing 68.8 Est GFR ( Amer) 54.5 Est GFR (Non-Af Amer) 47.0 BUN/Creatinine Ratio 13.6 Glucose 112 H Calcium 8.7 Medications Administered Current Inpatient Medications Acetaminophen (Tylenol) 650 mg PO Q4H PRN PRN Reason: pain/fever Stop: 11/22/18 17:43 Al Hydrox/Mg Hydrox/Simethicone (Maalox) 30 ml PO Q6H PRN PRN Reason: Dyspepsia Stop: 11/22/18 17:43 Last Admin: 10/25/18 06:10 Dose: 30 ml Documented by: Allopurinol (Zyloprim) 100 mg PO BID [facility] Stop: 11/22/18 20:59 Last Admin: 10/27/18 08:15 Dose: 100 mg Documented by: Colchicine (Colcrys) 0.6 mg PO DAILY [facility] Stop: 11/23/18 08:59 Last Admin: 10/27/18 08:16 Dose: 0.6 mg Documented by: Vancomycin HCl 2,000 mg/ (Sodium Chloride) 540 mls @ 200 mls/hr IV Q18H [facility] Stop: 11/03/18 08:59 Last Infusion: 10/27/18 11:09 Dose: Infused Documented by: Cefepime HCl 2,000 mg/ Syringe 20 mls @ 5.5 mls/min IV Q12H [facility]; Protocol Stop: 11/01/18 11:59 Last Admin: 10/27/18 12:50 Dose: 5.5 mls/min Documented by: Levothyroxine Sodium (Levothyroxine Sodium) 137 mcg PO DAILYBB [facility] Stop: 11/23/18 06:29 Last Admin: 10/27/18 06:03 Dose: 137 mcg Documented by: Lidocaine HCl (Xylocaine Jely 2%) 0 ml EXT UD PRN PRN Reason: NURSING SYRINGE Stop: 11/22/18 22:16 Metoprolol Succinate (Toprol Xl) 100 mg PO QPM [facility] Stop: 11/22/18 20:59 Last Admin: 10/26/18 20:06 Dose: 100 mg Documented by: Miscellaneous Information (Consult) 1 ea N/A UD PRN PRN Reason: Consult Stop: 11/22/18 17:43 Ondansetron HCl (Zofran) 4 mg IV Q6H PRN PRN Reason: Nausea Stop: 11/22/18 17:43 Tamsulosin HCl (Flomax) 0.4 mg PO HS [facility] Stop: 11/24/18 20:59 Last Admin: 10/26/18 20:06 Dose: 0.4 mg Documented by: Warfarin Sodium (Coumadin) 5 mg PO SuTh@1600 [facility] Stop: 11/23/18 15:59 Warfarin Sodium (Coumadin) 7.5 mg PO MoTuWeFrSa@1600 [facility] Stop: 11/22/18 19:59 Last Admin: 10/26/18 15:28 Dose: 7.5 mg Documented by: PG Care Time/CCT Total # of Minutes Spent Total Time Spent with Patient: Total time spent is greater than 50% in coord ination of care (as documented) at patient's floor/unit and/or counseling patient:
[2018-10-26] MEDS: METOPROLOL SUCC 50MG EXT REL TAB PO SCH (20:06)
[2018-10-26] MEDS: TAMSULOSIN HCL 0.4 MG CAP PO SCH (20:06)
[2018-10-27] MEDS: LEVOTHYROXINE SODIUM 137 MCG TABLET PO SCH (06:03)
[2018-10-27 08:14] LABS: Basophils # (auto) 0.03 K/uL (0-0.2); Basophils % (auto) 0.3 %; Eosinophils # (auto) 0.32 K/uL (0-0.5); Eosinophils % (auto) 2.7 %; Hematocrit (blood only) 41.2 % (42-52); Hemoglobin 14.3 g/dL (14.0-18.0); Immature Granulocytes # (auto) 0.17 K/uL (0.00-0.02); Immature Granulocytes % (auto) 1.4 %; Lymphocytes # (auto) 1.19 K/uL (1.2-3.4); Lymphocytes % (auto) 10.1 %; Mean Corpuscular Hgb Conc 34.7 g/dL (32-36); Mean Corpuscular Volume 87.8 fL (80-100); Mean Platelet Volume 9.8 fL (7.4-10.4); Monocytes # (auto) 0.66 K/uL (0.11-0.59); Monocytes % (auto) 5.6 %; Neutrophils # (auto) 9.39 K/uL (1.4-6.5); Neutrophils % (auto) 79.9 %; Platelet Count 259 K/uL (130-400); Red Blood Count 4.69 M/uL (4.7-6.1); White Blood Count 11.76 K/uL (4.8-10.8)
[2018-10-27] MEDS: ALLOPURINOL 100 MG TAB PO SCH ×2 (08:15→20:06)
[2018-10-27] MEDS: VANCOMYCIN HCL 2,000 MG in SODIUM CHLORIDE 0.9% 500 ML IV SCH (08:15)
[2018-10-27] MEDS: COLCHICINE 0.6 MG TAB PO SCH (08:16)
[2018-10-27 08:38] LABS: BUN Creatinine Ratio 13.6 (10-20); Calcium 8.7 mg/dl (8.5-10.1); Creatinine Clr Calc Pharmacy 68.8 ml/min; Est GFR (African American) 54.5
[2018-10-27] MEDS: CEFEPIME 2,000 MG in SYRINGE 7.5 ML IV SCH (12:50)
[2018-10-27] MEDS ORDERED: TRAMADOL HCL 50 MG TABLET PO PRN (15:17)
[2018-10-27] MEDS ORDERED: predniSONE 20 MG TAB PO STA (15:17)
--- NOTE | 2018-10-27 15:30 | Hospitalist Progress Note ---
Date of Service October 27, 2018 Assessment & Plan (1) Cellulitis of left lower extremity: Continue vancomycin and cefepime. Previous cultures have revealed Pseudomonas and staph aureus. Consulted podiatry. Appreciate their input. current cultures growing Pseudomonas, Staph aureus and group B strep Continue current antibiotics. will consult ID for recommendations for Pseudomonas treatment, likely needs IV antibiotics after discharge arterial ultrasound of lower extremity -- AUSTYN are within normal limits (2) Chronic ulcer of left foot: Wound care nurse consultation. NOTED ABOVE. (3) Anticoagulated on Coumadin: INR 2.7 on 10/26 repeat tomorrow (4) Chronic kidney disease, stage III (moderate): Monitor intake and output. Daily labs; CREATININE HAS IMPROVED. Patient has zimmerman (placed on 10/25) will have voiding trial tomorrow Cr 1.46 on 10/27, making adequate urine (5) Chronic atrial fibrillation: Controlled rate with metoprolol. Continue Coumadin therapy. Daily INR (6) Hypertension: Controlled with metoprolol (7) Acute retention of urine: continue zimmerman, likely perform voiding trial prior to discharge, tomorrow (8) Ankle pain, left: likely acute gouty arthritis will treat with Prednisone, renal function limits use of NSAIDs Ultram PRN Subjective patient is fairly weak had a difficult time transferring to chair today his is concerned about him going home, may need rehab reviewed culture results from wounds, growing MSSA and GBS also with Pseudomonas, sensitive to IV antibiotics only, including the Cefepime that he is on asked about using Ibuprofen for ankle, told him his renal function not good enough discussed with at the bedside, will try some Prednisone, Ultram if needed Review of Systems Review of Systems: All systems reviewed & are unremarkable except as noted in HPI & below Constitutional: + weakness; no fever, no chills, no sweats and no fatigue Respiratory: no cough and no dyspnea Cardiovascular: no chest pain and no edema Gastrointestinal: no abdominal pain, no nausea, no vomiting, no constipation and no diarrhea/loose stools Musculoskeletal: + joint pain (left ankle) Physical Exam Constitutional: WD/WN, vitals as above + obese Eyes: PERRL, conjunctivae normal, anicteric sclerae ENMT: external ear and nose normal, oropharynx normal Neck: trachea midline, no thyromegaly Respiratory: normal respiratory effort, lungs clear to auscultation Cardiovascular: RRR, no murmur, no edema Gastrointestinal (Abdomen): normal bowel sounds, soft, nontender, no hepatosplenomegaly Musculoskeletal: no cyanosis or clubbing, extremities motor strength 5/5 Skin: no rashes, warm and dry Neurologic: patellar DTR's 2+ bilat, sensation intact and PERRL, EOMI, accommodation nl, no face palsy, no dysarthria Psychiatric: A+Ox3, euthymic affect Lymphatic: no cervical or axillary lymphadenopathy Results & Data Vital Signs (Past 12 Hours) Vital Signs Temp Pulse Resp BP 10/27/18 07:01 36.7 C 95 H 20 136/79 Laboratory Results Laboratory Results - last 24 hr 10/27/18 10/27/18 08:04 08:04 WBC 11.76 H RBC 4.69 L Hgb 14.3 Hct 41.2 L MCV 87.8 MCH 30.5 MCHC 34.7 RDW Std Deviation 51.0 H RDW Coeff of [place]serr[place] 16.0 H Plt Count 259 MPV 9.8 Immature Gran % (Auto) 1.4 Neut % (Auto) 79.9 Lymph % (Auto) 10.1 [place] % (Auto) 5.6 Eos % (Auto) 2.7 Baso % (Auto) 0.3 Immature Gran # (Auto) 0.17 H Neut # (Auto) 9.39 H Lymph # (Auto) 1.19 L [place] # (Auto) 0.66 H Eos # (Auto) 0.32 Baso # (Auto) 0.03 Sodium 136 Potassium 4.0 Chloride 106 Carbon Dioxide 23 Anion Gap 7.0 BUN 20 H Creatinine 1.46 H Est Cr Clr Drug Dosing 68.8 Est GFR ( Amer) 54.5 Est GFR (Non-Af Amer) 47.0 BUN/Creatinine Ratio 13.6 Glucose 112 H Calcium 8.7 Medications Administered Current Inpatient Medications Acetaminophen (Tylenol) 650 mg PO Q4H PRN PRN Reason: pain/fever Stop: 11/22/18 17:43 Al Hydrox/Mg Hydrox/Simethicone (Maalox) 30 ml PO Q6H PRN PRN Reason: Dyspepsia Stop: 11/22/18 17:43 Last Admin: 10/25/18 06:10 Dose: 30 ml Documented by: Allopurinol (Zyloprim) 100 mg PO BID [facility] Stop: 11/22/18 20:59 Last Admin: 10/27/18 08:15 Dose: 100 mg Documented by: Colchicine (Colcrys) 0.6 mg PO DAILY [facility] Stop: 11/23/18 08:59 Last Admin: 10/27/18 08:16 Dose: 0.6 mg Documented by: Vancomycin HCl 2,000 mg/ (Sodium Chloride) 540 mls @ 200 mls/hr IV Q18H [facility] Stop: 11/03/18 08:59 Last Infusion: 10/27/18 11:09 Dose: Infused Documented by: Cefepime HCl 2,000 mg/ Syringe 20 mls @ 5.5 mls/min IV Q12H [facility]; Protocol Stop: 11/01/18 11:59 Last Admin: 10/27/18 12:50 Dose: 5.5 mls/min Documented by: Levothyroxine Sodium (Levothyroxine Sodium) 137 mcg PO DAILYBB [facility] Stop: 11/23/18 06:29 Last Admin: 10/27/18 06:03 Dose: 137 mcg Documented by: Lidocaine HCl (Xylocaine Jely 2%) 0 ml EXT UD PRN PRN Reason: NURSING SYRINGE Stop: 11/22/18 22:16 Metoprolol Succinate (Toprol Xl) 100 mg PO QPM [facility] Stop: 11/22/18 20:59 Last Admin: 10/26/18 20:06 Dose: 100 mg Documented by: Miscellaneous Information (Consult) 1 ea N/A UD PRN PRN Reason: Consult Stop: 11/22/18 17:43 Ondansetron HCl (Zofran) 4 mg IV Q6H PRN PRN Reason: Nausea Stop: 11/22/18 17:43 Tamsulosin HCl (Flomax) 0.4 mg PO HS [facility] Stop: 11/24/18 20:59 Last Admin: 10/26/18 20:06 Dose: 0.4 mg Documented by: Tramadol HCl (Ultram) 50 mg PO Q4H PRN PRN Reason: Pain Stop: 11/26/18 15:16 Warfarin Sodium (Coumadin) 5 mg PO SuTh@1600 [facility] Stop: 11/23/18 15:59 Warfarin Sodium (Coumadin) 7.5 mg PO MoTuWeFrSa@1600 [facility] Stop: 11/22/18 19:59 Last Admin: 10/26/18 15:28 Dose: 7.5 mg Documented by: PG Care Time/CCT Total # of Minutes Spent Total Time Spent with Patient: Total time spent is greater than 50% in coordination of care (as documented) at patient's floor/unit and/or counseling patient: (1) Ankle pain, left Chronicity: unspecified Qualified Code(s): M25.572 - Pain in left ankle and joints of left foot
[2018-10-27] MEDS: TAMSULOSIN HCL 0.4 MG CAP PO SCH (20:06)
[2018-10-27] MEDS: METOPROLOL SUCC 50MG EXT REL TAB PO SCH (20:06)
[2018-10-28] MEDS: CEFEPIME 2,000 MG in SYRINGE 7.5 ML IV SCH ×3 (01:30→20:40)
[2018-10-28] MEDS: VANCOMYCIN HCL 2,000 MG in SODIUM CHLORIDE 0.9% 500 ML IV SCH (03:07)
[2018-10-28] MEDS: LEVOTHYROXINE SODIUM 137 MCG TABLET PO SCH (05:56)
[2018-10-28 06:15] LABS: Basophils # (auto) 0.01 K/uL (0-0.2); Basophils % (auto) 0.1 %; Eosinophils # (auto) 0.02 K/uL (0-0.5); Eosinophils % (auto) 0.2 %; Hematocrit (blood only) 41.6 % (42-52); Hemoglobin 14.1 g/dL (14.0-18.0); Immature Granulocytes # (auto) 0.13 K/uL (0.00-0.02); Immature Granulocytes % (auto) 1.2 %; Lymphocytes # (auto) 0.86 K/uL (1.2-3.4); Lymphocytes % (auto) 7.7 %; Mean Corpuscular Hgb Conc 33.9 g/dL (32-36); Mean Corpuscular Volume 86.7 fL (80-100); Mean Platelet Volume 10.2 fL (7.4-10.4); Monocytes # (auto) 0.52 K/uL (0.11-0.59); Monocytes % (auto) 4.7 %; Neutrophils # (auto) 9.61 K/uL (1.4-6.5); Neutrophils % (auto) 86.1 %; Platelet Count 275 K/uL (130-400); RDW Coefficient of Variation 15.8 % (11.5-14.5); RDW Standard Deviation 50.4 fL (36.4-46.3); White Blood Count 11.15 K/uL (4.8-10.8)
[2018-10-28 06:30] LABS: INR 2.7 (0.9-1.1); Prothrombin Time 26.1 Seconds (9.0-12.0)
[2018-10-28 06:49] LABS: Calcium 8.5 mg/dl (8.5-10.1); Creatinine Clr Calc Pharmacy 67.8 ml/min; Est GFR (African American) 53.6; Est GFR (Non-African American) 46.3; Potassium 4.3 mmol/L (3.5-5.1)
[2018-10-28] MEDS: COLCHICINE 0.6 MG TAB PO SCH (08:44)
[2018-10-28] MEDS: ALLOPURINOL 100 MG TAB PO SCH ×2 (08:44→20:41)
--- NOTE | 2018-10-28 11:18 | Infectious Disease Consult ---
Date of Consultation October 28, 2018 Assessment & Plan (1) Foot infection: can continue on current IV abx. no po options available for psedumonas, would continue with cefepime. can continue on vanco for now, upon d/c can change to po doxy 100mg po bid. would give 21 days total. suspect he would benefit from continued wound care follow up post d/c. ok for picc line. will follow. History of Present Illness Attending Physician: Gideon Greer DO pt admitted with increased pain, swelling and ulceration of b/l legs. he was previously followed at wound center with resolution, states he was not aware infection could recur, did not follow for routine preventative care, now admitted with cellulitis. was placed on IV vanco and cefepime, tolerating well. afebrile. wbc 12, now 11. Denies pain in feet/legs. UA negative, creat 1.4. 10/23 blood cultures 03/27 with bulb grader, otherwise negative. foot cultures obtained as well. R foot - MSSA, GBS, alcaligenes, left foot growing MSSA, GBS and pseudomonas, I to quinolones, sensitive to cefepime. ID consulted for d/c abx. at bedside and states he is going to rehab for PT as he is currently not ambulatory. he denies abx allergies. states he would be willing to go back to wound center post d/c from hospital. States he is overall feeling well, no f/c. no cp, sob, cough, zapata. no abd pain, no n/v/d. no gu symptoms. Allergies Allergy/AdvReac Type Severity Reaction Status Date / Time hydrochlorothiazide Allergy Unknown "shut down Verified 07/29/18 13:18 kidneys" Home Medications Home Medications Medication Instructions Recorded Confirmed Type metoprolol succinate 100 mg PO QPM #0 08/07/16 10/23/18 History levothyroxine 137 mcg PO DAILY 07/29/18 10/23/18 History allopurinol 100 mg tablet 100 mg PO BID tab 09/12/18 10/23/18 History warfarin 5 mg tablet See Rx Instructions PO UD tab 09/12/18 10/23/18 History colchicine 0.6 mg PO DAILY 10/23/18 10/23/18 History Patient History Medical History Hypertension (Chronic) Chronic atrial fibrillation (Chronic) Chronic kidney disease, stage III (moderate) (Chronic) Chronic ulcer of left foot (Chronic) Cellulitis (Acute) BPH (benign prostatic hyperplasia) Penile hypospadias Renal cyst Atrial fibrillation, chronic (Acute) Benign essential HTN (Acute) Cellulitis of left anterior lower leg (Acute) Hyperkalemia (Acute) Hypothyroidism (Acute) no longer on any meds Obesity (Acute) Prediabetes (Acute) Hearing deficit On anticoagulant therapy Sleep apnea cpap Surgical History History of esophagogastroduodenoscopy (EGD) Family History Other No family history of adverse response to anesthesia Social History Preferred Language: [place] Communication Ability: Effective Communication Ability Comment: kluti kaah, does not have h/a here Beverage Distiller Required: No Beliefs That Will Affect Care: Christian Christian Beliefs: Advent marital status: Current Living Situation: Spouse current occupational status: retired Other Information That Helps Us Care for You: No Feels Safe at Home: Yes Safety Concerns: Feels Safe At This Time Smoking Status: Former smoker Do You Dip or Chew Tobacco: No ; Smoking End Date: 2013 ; Second Hand Exposure: No ; Hx Alcohol Use: Yes Alcohol type: beer, wine and hard liquor Hx Substance Use: No Review of Systems Review of Systems: All systems reviewed & are unremarkable except as noted in HPI & below Physical Exam Constitutional: WD/WN, vitals as above Eyes: PERRL, conjunctivae normal, anicteric sclerae ENMT: external ear and nose normal, oropharynx normal Neck: normal visual inspection Respiratory: normal respiratory effort, lungs clear to auscultation Cardiovascular: RRR, no murmur, no edema Gastrointestinal (Abdomen): normal bowel sounds, soft, nontender, no hepatosplenomegaly Musculoskeletal: no cyanosis or clubbing, extremities motor strength 5/5 Skin: no rashes, warm and dry b/l first toe ulcerations noted, no bleeding, no erythema, min maceration, no purulent drainage Psychiatric: A+Ox3, euthymic affect Results & Data Vital Signs (Past 12 Hours) Vital Signs Temp Pulse Resp BP Pulse Ox 10/28/18 07:16 36.5 C 85 19 131/87 96 Laboratory Results Microbiology 10/24/18 17:15 Toe,Right Great Gram Stain - Final 10/24/18 17:15 Toe,Right Great Wound Culture - Final Group B Beta Strep Staphylococcus aureus Alcaligenes faecalis 10/24/18 17:15 Toe,Left Great Gram Stain - Final 10/24/18 17:15 Toe,Left Great Wound Culture - Final Pseudomonas aeruginosa Staphylococcus aureus Group B Beta Strep 10/23/18 11:57 Blood Aerobic Blood Culture - Preliminary No growth in Aerobic bottle after 48 hours. 10/23/18 11:57 Blood Anaerobic Blood Culture - Preliminary No growth in Anaerobic bottle after 48 hours. 10/23/18 11:52 Blood Aerobic Blood Culture - Preliminary No growth in Aerobic bottle after 48 hours. 10/23/18 11:52 Blood Anaerobic Blood Culture - Preliminary Coag neg staph not lugdunensis PG Care Time/CCT Total # of Minutes Spent Total Time Spent with Patient: Total time spent is greater than 50% in coordination of care (as documented) at patient's floor/unit and/or counseling patient:
[2018-10-28] MEDS: predniSONE 20 MG TAB PO SCH (12:20)
--- NOTE | 2018-10-28 13:51 | Hospitalist Progress Note ---
Date of Service October 28, 2018 Assessment & Plan (1) Cellulitis of left lower extremity: Continue vancomycin and cefepime. Previous cultures have revealed Pseudomonas and staph aureus. Consulted podiatry. Appreciate their input. current cultures growing Pseudomonas, Staph aureus and group B strep Continue current antibiotics. will consult ID for recommendations for Pseudomonas treatment plan: will use Cefepime on discharge, needs total of 21 days, includes what he received here continue Vanco for now, change to Doxycycline PO on discharge arterial ultrasound of lower extremity -- AUSTYN are within normal limits (2) Chronic ulcer of left foot: Wound care nurse consultation. NOTED ABOVE. (3) Anticoagulated on Coumadin: INR 2.7 today (4) Chronic kidney disease, stage III (moderate): Monitor intake and output. Daily labs; CREATININE HAS IMPROVED. zimmerman pulled today, monitor for urine output Cr 1.48 on 10/28, making adequate urine (5) Chronic atrial fibrillation: Controlled rate with metoprolol. Continue Coumadin therapy. Daily INR (6) Hypertension: Controlled with metoprolol (7) Acute retention of urine: zimmerman pulled on 10/28 watch for inability to void (8) Ankle pain, left: likely acute gouty arthritis will treat with Prednisone, renal function limits use of NSAIDs Ultram PRN use Prednisone for 7 days Plan: prefers rehab at [facility], can complete Cefepime IV while there Subjective patient reports his knees feel better with the Prednisone, did not notice a difference in his ankle breathing well, no chest pain, eating well appreciate note from Dr. Palumbo today, plan for Cefepime IV on discharge d/w patient and his , would like to go to [facility] for rehab and IV treatment reviewed labs, WBC is 11k, Cr stable at 1.4, electrolytes stable zimmerman pulled this morning, will watch for him to be able to void Review of Systems Review of Systems: All systems reviewed & are unremarkable except as noted in HPI & below Constitutional: no fever and no sweats Respiratory: no cough and no dyspnea Cardiovascular: no chest pain and no edema Musculoskeletal: + joint pain (knees, left ankle) Physical Exam Constitutional: WD/WN, vitals as above + obese Eyes: PERRL, conjunctivae normal, anicteric sclerae ENMT: external ear and nose normal, oropharynx normal Neck: trachea midline, no thyromegaly Respiratory: normal respiratory effort, lungs clear to auscultation Cardiovascular: RRR, no murmur, no edema Gastrointestinal (Abdomen): normal bowel sounds, soft, nontender, no hepatospl enomegaly Musculoskeletal: no cyanosis or clubbing, extremities motor strength 5/5 Skin: no rashes, warm and dry Neurologic: patellar DTR's 2+ bilat, sensation intact and PERRL, EOMI, accommodation nl, no face palsy, no dysarthria Psychiatric: A+Ox3, euthymic affect Lymphatic: no cervical or axillary lymphadenopathy Results & Data Vital Signs (Past 12 Hours) Vital Signs Temp Pulse Resp BP Pulse Ox 10/28/18 07:16 36.5 C 85 19 131/87 96 Laboratory Results Laboratory Results - last 24 hr 10/28/18 10/28/18 10/28/18 05:40 05:40 05:40 WBC 11.15 H RBC 4.80 Hgb 14.1 Hct 41.6 L MCV 86.7 MCH 29.4 MCHC 33.9 RDW Std Deviation 50.4 H RDW Coeff of [place]at 15.8 H Plt Count 275 MPV 10.2 Immature Gran % (Auto) 1.2 Neut % (Auto) 86.1 Lymph % (Auto) 7.7 [place] % (Auto) 4.7 Eos % (Auto) 0.2 Baso % (Auto) 0.1 Immature Gran # (Auto) 0.13 H Neut # (Auto) 9.61 H Lymph # (Auto) 0.86 L [place] # (Auto) 0.52 Eos # (Auto) 0.02 Baso # (Auto) 0.01 ESR PT 26.1 H INR 2.7 H Sodium 135 L Potassium 4.3 Chloride 106 Carbon Dioxide 21 Anion Gap 8.0 BUN 25 H Creatinine 1.48 H Est Cr Clr Drug Dosing 67.8 Est GFR ( Amer) 53.6 Est GFR (Non-Af Amer) 46.3 BUN/Creatinine Ratio 17.0 Glucose 135 H Calcium 8.5 10/28/18 05:40 WBC RBC Hgb Hct MCV MCH MCHC RDW Std Deviation RDW Coeff of [place] Plt Count MPV Immature Gran % (Auto) Neut % (Auto) Lymph % (Auto) [place] % (Auto) Eos % (Auto) Baso % (Auto) Immature Gran # (Auto) Neut # (Auto) Lymph # (Auto) [place] # (Auto) Eos # (Auto) Baso # (Auto) ESR > 90 H PT INR Sodium Potassium Chloride Carbon Dioxide Anion Gap BUN Creatinine Est Cr Clr Drug Dosing Est GFR ( Amer) Est GFR (Non-Af Amer) BUN/Creatinine Ratio Glucose Calcium Medications Administered Current Inpatient Medications Acetaminophen (Tylenol) 650 mg PO Q4H PRN PRN Reason: pain/fever Stop: 11/22/18 17:43 Al Hydrox/Mg Hydrox/Simethicone (Maalox) 30 ml PO Q6H PRN PRN Reason: Dyspepsia Stop: 11/22/18 17:43 Last Admin: 10/25/18 06:10 Dose: 30 ml Documented by: Allopurinol (Zyloprim) 100 mg PO BID [facility] Stop: 11/22/18 20:59 Last Admin: 10/28/18 08:44 Dose: 100 mg Documented by: Colchicine (Colcrys) 0.6 mg PO DAILY [facility] Stop: 11/23/18 08:59 Last Admin: 10/28/18 08:44 Dose: 0.6 mg Documented by: Vancomycin HCl 2,000 mg/ (Sodium Chloride) 540 mls @ 200 mls/hr IV Q18H [facility] Stop: 11/03/18 08:59 Last Infusion: 10/28/18 05:49 Dose: Infused Documented by: Cefepime HCl 2,000 mg/ Syringe 20 mls @ 5.5 mls/min IV Q12H [facility]; Protocol Stop: 11/01/18 11:59 Last Admin: 10/28/18 12:20 Dose: 5.5 mls/min Documented by: Levothyroxine Sodium (Levothyroxine Sodium) 137 mcg PO DAILYBB [facility] Stop: 11/23/18 06:29 Last Admin: 10/28/18 05:56 Dose: 137 mcg Documented by: Lidocaine HCl (Xylocaine Jely 2%) 0 ml EXT UD PRN PRN Reason: NURSING SYRINGE Stop: 11/22/18 22:16 Metoprolol Succinate (Toprol Xl) 100 mg PO QPM [facility] Stop: 11/22/18 20:59 Last Admin: 10/27/18 20:06 Dose: 100 mg Documented by: Miscellaneous Information (Consult) 1 ea N/A UD PRN PRN Reason: Consult Stop: 11/22/18 17:43 Ondansetron HCl (Zofran) 4 mg IV Q6H PRN PRN Reason: Nausea Stop: 11/22/18 17:43 Prednisone (Prednisone) 40 mg PO QAM [facility] Stop: 11/27/18 11:59 Last Admin: 10/28/18 12:20 Dose: 40 mg Documented by: Tamsulosin HCl (Flomax) 0.4 mg PO HS [facility] Stop: 11/24/18 20:59 Last Admin: 10/27/18 20:06 Dose: 0.4 mg Documented by: Tramadol HCl (Ultram) 50 mg PO Q4H PRN PRN Reason: Pain Stop: 11/26/18 15:16 Warfarin Sodium (Coumadin) 5 mg PO SuTh@1600 [facility] Stop: 11/23/18 15:59 Last Admin: 10/27/18 16:10 Dose: 5 mg Documented by: Warfarin Sodium (Coumadin) 7.5 mg PO MoTuWeFrSa@1600 [facility] Stop: 11/22/18 19:59 Last Admin: 10/26/18 15:28 Dose: 7.5 mg Documented by: PG Care Time/CCT Total # of Minutes Spent Total Time Spent with Patient: Total time spent is greater than 50% in coordination of care (as documented) at patient's floor/unit and/or counseling patient: (1) Ankle pain, left Chronicity: unspecified Qualified Code(s): M25.572 - Pain in left ankle and joints of left foot
[2018-10-28] MEDS: WARFARIN SOD 7.5 MG TAB PO SCH (16:16)
--- NOTE | 2018-10-28 18:12 | Podiatry Consultation ---
Date of Consultation October 28, 2018 History of Present Illness Attending Physician: Gideon Greer DO patient seen at bedside today and he states he is feeling very well, he is anticipating d/c either tomorrow or Sunday to [facility], patient's cultures reviewed today and show growth of group b strep, staph a and pseudo, patient has seen ID and is to get PICC line and IV followed by oral abx dressings removed today and interspaces of bilateral feet inspected - left is significantly improved and the right first interspace had an area of maceration along the plantar aspect of the foot, the skin was cleaned with saline after dressings removed and peeling skin was debrided with forceps and scissors, underling skin dry and intact with very minimal maceration WBC has improved and is within the normal limits, infection is improving with abx patient will need f/u with me in my office post d/c at [facility] patient will need to have [facility] continue dressing changes consisting of xerform, gauze and roll gauze changed daily, patient states he will also f/u with wound care as well overall 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 Allergies Allergy/AdvReac Type Severity Reaction Status Date / Time hydrochlorothiazide Allergy Unknown "shut down Verified 07/29/18 13:18 kidneys" Home Medications Home Medications Medication Instructions Recorded Confirmed Type metoprolol succinate 100 mg PO QPM #0 08/07/16 10/23/18 History levothyroxine 137 mcg PO DAILY 07/29/18 10/23/18 History allopurinol 100 mg tablet 100 mg PO BID tab 09/12/18 10/23/18 History warfarin 5 mg tablet See Rx Instructions PO UD tab 09/12/18 10/23/18 History colchicine 0.6 mg PO DAILY 10/23/18 10/23/18 History Patient History Medical History Hypertension (Chronic) Chronic atrial fibrillation (Chronic) Chronic kidney disease, stage III (moderate) (Chronic) Chronic ulcer of left foot (Chronic) Cellulitis (Acute) BPH (benign prostatic hyperplasia) Penile hypospadias Renal cyst Atrial fibrillation, chronic (Acute) Benign essential HTN (Acute) Cellulitis of left anterior lower leg (Acute) Hyperkalemia (Acute) Hypothyroidism (Acute) no longer on any meds Obesity (Acute) Prediabetes (Acute) Hearing deficit On anticoagulant therapy Sleep apnea cpap Surgical History History of esophagogastroduodenoscopy (EGD) Family History Other No family history of adverse response to anesthesia Social History Preferred Language: Bahraini Communication Ability: Effective Communication Ability Comment: confederated salish, does not have h/a here Distribution Field Technician Required: No Beliefs That Will Affect Care: Mu-Ism Mu-Ism Beliefs: Jewish marital status: Current Living Situation: Spouse current occupational status: retired Other Information That Helps Us Care for You: No Feels Safe at Home: Yes Safety Concerns: Feels Safe At This Time Smoking Status: Former smoker Do You Dip or Chew Tobacco: No ; Smoking End Date: 2013 ; Second Hand Exposure: No ; Hx Alcohol Use: Yes Alcohol type: beer, wine and hard liquor Hx Substance Use: No Physical Exam Skin: dressings removed and first interspaces of bilateral feet inspected, left is significantly improved without malodor and improved infection; right with peeling skin plantar aspect of the foot, this was cleaned with saline and debrided and underlying skin intact and stable dressings reapplied after cleaning with saline Results & Data Vital Signs (Past 12 Hours) Vital Signs Temp Pulse Resp BP BP Pulse Ox 10/28/18 15:11 36.5 C 90 20 123/83 96 10/28/18 07:16 36.5 C 85 19 131/87 96
[2018-10-28] MEDS ORDERED: VANCOMYCIN TROUGH ONE (20:30)
[2018-10-28] MEDS: METOPROLOL SUCC 50MG EXT REL TAB PO SCH (20:40)
[2018-10-28] MEDS: TAMSULOSIN HCL 0.4 MG CAP PO SCH (20:40)
[2018-10-28] MEDS ORDERED: LIDOCAINE 2% JELLY 5 ML TUBE EXT ONE (21:02)
[2018-10-28] MEDS: DOXYCYCLINE HYCLATE 100 MG CAP PO SCH (21:18)
[2018-10-29] MEDS: CEFEPIME 2,000 MG in SYRINGE 7.5 ML IV SCH ×3 (04:00→20:32)
[2018-10-29] MEDS: LEVOTHYROXINE SODIUM 137 MCG TABLET PO SCH (05:46)
[2018-10-29 08:17] LABS: Creatinine Clr Calc Pharmacy 64.8 ml/min; Est GFR (African American) 50.7; Est GFR (Non-African American) 43.8
[2018-10-29] MEDS: COLCHICINE 0.6 MG TAB PO SCH (08:20)
[2018-10-29] MEDS: DOXYCYCLINE HYCLATE 100 MG CAP PO SCH ×2 (08:21→20:38)
[2018-10-29] MEDS: predniSONE 20 MG TAB PO SCH (08:21)
[2018-10-29] MEDS: ALLOPURINOL 100 MG TAB PO SCH ×2 (08:21→20:38)
--- NOTE | 2018-10-29 12:15 | Hospitalist Progress Note ---
Date of Service October 29, 2018 Assessment & Plan (1) Cellulitis of left lower extremity: Continue vancomycin and cefepime. Previous cultures have revealed Pseudomonas and staph aureus. Consulted podiatry. Appreciate their input. current cultures growing Pseudomonas, Staph aureus and group B strep Continue current antibiotics. will consult ID for recommendations for Pseudomonas treatment plan: will use Cefepime on discharge, needs total of 21 days, includes what he received here changed Vanco to Doxycycline and will continue on discharge arterial ultrasound of lower extremity -- AUSTYN are within normal limits (2) Chronic ulcer of left foot: Wound care nurse consultation. NOTED ABOVE. podiatry please with healing changed dressings and cleaned wounds today discharge instructions provided (3) Anticoagulated on Coumadin: INR 2.7 yesterday, repeat tomorrow (4) Chronic kidney disease, stage III (moderate): Monitor intake and output. Daily labs; CREATININE HAS IMPROVED. Cr is 1.55 today, making adequate urine zimmerman in place due to urinary retention (5) Chronic atrial fibrillation: Controlled rate with metoprolol. Continue Coumadin therapy. Daily INR (6) Hypertension: Controlled with metoprolol (7) Acute retention of urine: zimmerman pulled on 10/28 unable to void new zimmerman placed /[address] on discharge, follow up with urology in 10-14 days for voiding trial (8) Ankle pain, left: likely acute gouty arthritis will treat with Prednisone, renal function limits use of NSAIDs Ultram PRN use Prednisone for 7 days Plan: prefers rehab at [facility], can complete Cefepime IV while there hopeful for d/c tomorrow Subjective patient did not sleep very well last night, issues with voiding he required a zimmerman catheter to be placed again, will go home with it, plan for follow up with urology in 10-14 days no fever or chills, no chest pain, no dyspnea, no cough appreciate note from podiatry today, his wounds are looking good, gave wound care instructions for discharge reviewed labs, Cr up very slightly at 1.5 but still in baseline range discussed with CM, applying for insurance auth this afternoon for [facility], likely okay to go tomorrow if approved Review of Systems Review of Systems: All systems reviewed & are unremarkable except as noted in HPI & below Genitourinary: + difficulty urinating (required zimmerman over night) Musculoskeletal: + joint pain (left ankle) Physical Exam Constitutional: WD/WN, vitals as above + obese Eyes: PERRL, conjunctivae normal, anicteric sclerae ENMT: external ear and nose normal, oropharynx normal Neck: trachea midline, no thyromegaly Respiratory: normal respiratory effort, lungs clear to auscultation Cardiovascular: RRR, no murmur, no edema Gastrointestinal (Abdomen): normal bowel sounds, soft, nontender, no hepatosplenomegaly Musculoskeletal: no cyanosis or clubbing, extremities motor strength 5/5 Skin: no rashes, warm and dry Neurologic: patellar DTR's 2+ bilat, sensation intact and PERRL, EOMI, accommodation nl, no face palsy, no dysarthria Psychiatric: A+Ox3, euthymic affect Lymphatic: no cervical or axillary lymphadenopathy Results & Data Vital Signs (Past 12 Hours) Vital Signs Temp Pulse Resp BP Pulse Ox 10/29/18 07:15 36.6 C 92 H 18 120/75 92 Laboratory Results Laboratory Results - last 24 hr 10/28/18 10/29/18 05:40 07:34 ESR > 90 H Creatinine 1.55 H Est Cr Clr Drug Dosing 64.8 Est GFR ( Amer) 50.7 Est GFR (Non-Af Amer) 43.8 Medications Administered Current Inpatient Medications Acetaminophen (Tylenol) 650 mg PO Q4H PRN PRN Reason: pain/fever Stop: 11/22/18 17:43 Al Hydrox/Mg Hydrox/Simethicone (Maalox) 30 ml PO Q6H PRN PRN Reason: Dyspepsia Stop: 11/22/18 17:43 Last Admin: 10/25/18 06:10 Dose: 30 ml Documented by: Allopurinol (Zyloprim) 100 mg PO BID [facility] Stop: 11/22/18 20:59 Last Admin: 10/29/18 08:21 Dose: 100 mg Documented by: Colchicine (Colcrys) 0.6 mg PO DAILY [facility] Stop: 11/23/18 08:59 Last Admin: 10/29/18 08:20 Dose: 0.6 mg Documented by: Doxycycline Hyclate (Vibramycin) 100 mg PO BID [facility] Stop: 11/07/18 20:59 Last Admin: 10/29/18 08:21 Dose: 100 mg Documented by: Cefepime HCl 2,000 mg/ Syringe 20 mls @ 5.5 mls/min IV Q8H [facility]; Protocol Stop: 11/01/18 11:59 Last Admin: 10/29/18 04:00 Dose: 5.5 mls/min Documented by: Levothyroxine Sodium (Levothyroxine Sodium) 137 mcg PO DAILYBB [facility] Stop: 11/23/18 06:29 Last Admin: 10/29/18 05:46 Dose: 137 mcg Documented by: Lidocaine HCl (Xylocaine Jely 2%) 0 ml EXT UD PRN PRN Reason: NURSING SYRINGE Stop: 11/22/18 22:16 Metoprolol Succinate (Toprol Xl) 100 mg PO QPM [facility] Stop: 11/22/18 20:59 Last Admin: 10/28/18 20:40 Dose: 100 mg Documented by: Ondansetron HCl (Zofran) 4 mg IV Q6H PRN PRN Reason: Nausea Stop: 11/22/18 17:43 Prednisone (Prednisone) 40 mg PO QAM [facility] Stop: 11/27/18 11:59 Last Admin: 10/29/18 08:21 Dose: 40 mg Documented by: Tamsulosin HCl (Flomax) 0.4 mg PO HS [facility] Stop: 11/24/18 20:59 Last Admin: 10/28/18 20:40 Dose: 0.4 mg Documented by: Tramadol HCl (Ultram) 50 mg PO Q4H PRN PRN Reason: Pain Stop: 11/26/18 15:16 Warfarin Sodium (Coumadin) 5 mg PO SuTh@1600 [facility] Stop: 11/23/18 15:59 Last Admin: 10/27/18 16:10 Dose: 5 mg Documented by: Warfarin Sodium (Coumadin) 7.5 mg PO MoTuWeFrSa@1600 [facility] Stop: 11/22/18 19:59 Last Admin: 10/28/18 16:16 Dose: 7.5 mg Documented by: PG Care Time/CCT Total # of Minutes Spent Total Time Spent with Patient: Total time spent is greater than 50% in coordination of care (as documented) at patient's floor/unit and/or counseling patient: (1) Ankle pain, left Chronicity: unspecified Qualified Code(s): M25.572 - Pain in left ankle and joints of left foot
--- NOTE | 2018-10-29 14:27 | Infectious Disease Progress Nt ---
Date of Service October 29, 2018 Assessment & Plan (1) Foot infection: can continue on current IV abx. no po options available for psedumonas, would continue with cefepime. can continue on vanco for now, upon d/c can change to po doxy 100mg po bid. would give 21 days total. suspect he would benefit from continued wound care follow up post d/c. ok for picc line. ok for d/c when otherwise stable. Subjective pt remains on vanco and cefepime for foot infection. plan for tentative d/c in am. afebrile. tolerating abx. blood cultures negative, no am cbc. Results & Data Vital Signs (Past 12 Hours) Vital Signs Temp Pulse Resp BP Pulse Ox 10/29/18 07:15 36.6 C 92 H 18 120/75 92 Laboratory Results Microbiology 10/23/18 11:57 Blood Aerobic Blood Culture - Final No growth in Aerobic bottle after 5 days. 10/23/18 11:57 Blood Anaerobic Blood Culture - Final No growth in Anaerobic bottle after 5 days. 10/23/18 11:52 Blood Aerobic Blood Culture - Final No growth in Aerobic bottle after 5 days. 10/23/18 11:52 Blood Anaerobic Blood Culture - Preliminary Coag neg staph not lugdunensis 10/24/18 17:15 Toe,Right Great Gram Stain - Final 10/24/18 17:15 Toe,Right Great Wound Culture - Final Group B Beta Strep Staphylococcus aureus Alcaligenes faecalis 10/24/18 17:15 Toe,Left Great Gram Stain - Final 10/24/18 17:15 Toe,Left Great Wound Culture - Final Pseudomonas aeruginosa Staphylococcus aureus Group B Beta Strep PG Care Time/CCT Total # of Minutes Spent Total Time Spent with Patient: Total time spent is greater than 50% in coordination of care (as documented) at patient's floor/unit and/or counseling patient:
[2018-10-29] MEDS: WARFARIN SOD 7.5 MG TAB PO SCH (16:10)
[2018-10-29] MEDS: TAMSULOSIN HCL 0.4 MG CAP PO SCH (20:38)
[2018-10-29] MEDS: METOPROLOL SUCC 50MG EXT REL TAB PO SCH (20:38)
[2018-10-30] MEDS: CEFEPIME 2,000 MG in SYRINGE 7.5 ML IV SCH ×3 (03:21→20:45)
[2018-10-30] MEDS: LEVOTHYROXINE SODIUM 137 MCG TABLET PO SCH (05:57)
[2018-10-30] MEDS: DOXYCYCLINE HYCLATE 100 MG CAP PO SCH ×2 (07:47→20:46)
[2018-10-30] MEDS: COLCHICINE 0.6 MG TAB PO SCH (07:47)
[2018-10-30] MEDS: predniSONE 20 MG TAB PO SCH (07:48)
[2018-10-30] MEDS: ALLOPURINOL 100 MG TAB PO SCH ×2 (07:48→20:46)
[2018-10-30 08:01] LABS: Basophils # (auto) 0.05 K/uL (0-0.2); Basophils % (auto) 0.4 %; Eosinophils # (auto) 0.14 K/uL (0-0.5); Eosinophils % (auto) 1.2 %; Hematocrit (blood only) 41.3 % (42-52); Hemoglobin 14.1 g/dL (14.0-18.0); Immature Granulocytes # (auto) 0.26 K/uL (0.00-0.02); Immature Granulocytes % (auto) 2.1 %; Lymphocytes # (auto) 1.59 K/uL (1.2-3.4); Lymphocytes % (auto) 13.1 %; Mean Corpuscular Hgb Conc 34.1 g/dL (32-36); Mean Corpuscular Volume 86.4 fL (80-100); Mean Platelet Volume 10.6 fL (7.4-10.4); Monocytes # (auto) 0.55 K/uL (0.11-0.59); Monocytes % (auto) 4.5 %; Neutrophils # (auto) 9.57 K/uL (1.4-6.5); Neutrophils % (auto) 78.7 %; Platelet Count 306 K/uL (130-400); RDW Coefficient of Variation 15.7 % (11.5-14.5); RDW Standard Deviation 49.9 fL (36.4-46.3); Red Blood Count 4.78 M/uL (4.7-6.1); White Blood Count 12.16 K/uL (4.8-10.8)
[2018-10-30 08:22] LABS: Schistocytes Occasional
[2018-10-30 08:30] LABS: Creatinine Clr Calc Pharmacy 61.2 ml/min; Est GFR (African American) 47.4; Est GFR (Non-African American) 40.9
[2018-10-30 08:41] LABS: BUN Creatinine Ratio 19.3 (10-20); Calcium 8.9 mg/dl (8.5-10.1); Creatinine Clr Calc Pharmacy 63.5 ml/min; Est GFR (African American) 49.6; Est GFR (Non-African American) 42.8; Potassium 3.6 mmol/L (3.5-5.1)
[2018-10-30] MEDS ORDERED: SIMETHICONE 80 MG CHEW PO STA (10:26)
--- NOTE | 2018-10-30 16:32 | Hospitalist Progress Note ---
Date of Service October 30, 2018 Assessment & Plan (1) Cellulitis of left lower extremity: Continue vancomycin and cefepime. Previous cultures have revealed Pseudomonas and staph aureus. Consulted podiatry. Appreciate their input. current cultures growing Pseudomonas, Staph aureus and group B strep Continue current antibiotics. will consult ID for recommendations for Pseudomonas treatment plan: will use Cefepime on discharge, needs total of 21 days, includes what he received here changed Vanco to Doxycycline and will continue on discharge for total of 21 days as well arterial ultrasound of lower extremity -- AUSTYN are within normal limits (2) Chronic ulcer of left foot: Wound care nurse consultation. NOTED ABOVE. podiatry please with healing changed dressings and cleaned wounds on 10/29 discharge instructions provided (3) Anticoagulated on Coumadin: INR 2.7 when last checked will repeat tomorrow (4) Chronic kidney disease, stage III (moderate): Monitor intake and output. Daily labs; CREATININE HAS IMPROVED. Cr is 1.58 today, making adequate urine zimmerman in place due to urinary retention (5) Chronic atrial fibrillation: Controlled rate with metoprolol. Continue Coumadin therapy. Daily INR (6) Hypertension: Controlled with metoprolol (7) Acute retention of urine: zimmerman pulled on 10/28 unable to void new zimmerman placed 10/[address] on discharge, follow up with urology in 10-14 days for voiding trial (8) Ankle pain, left: likely acute gouty arthritis will treat with Prednisone, renal function limits use of NSAIDs Ultram PRN use Prednisone for 7 days, today is day 4 Plan: referral to [facility], can complete Cefepime IV while there hopeful for d/c tomorrow Subjective patient doing well today, less pain in left ankle he was able to ambulate down the [place] with rolling walker which is major improvement continues to eat well, moving paige no chest pain or dyspnea reviewed labs, WBC is 12k, Cr is 1.58, electrolytes stable peer to peer done for acute rehab, this was denied by insurance but will approve SNF d/w , will try to get to [facility] tomorrow Review of Systems Review of Systems: All systems reviewed & are unremarkable except as noted in HPI & below Musculoskeletal: + joint pain (left ankle) and + muscle weakness (generalized but improving) Physical Exam Constitutional: WD/WN, vitals as above + obese Eyes: PERRL, conjunctivae normal, anicteric sclerae ENMT: external ear and nose normal, oropharynx normal Neck: trachea midline, no thyromegaly Respiratory: normal respiratory effort, lungs clear to auscultation Cardiovascular: RRR, no murmur, no edema Gastrointestinal (Abdomen): normal bowel sounds, soft, nontender, no hepatosplenomegaly Musculoskeletal: no cyanosis or clubbing, extremities motor strength 5/5 Skin: no rashes, warm and dry Neurologic: patellar DTR's 2+ bilat, sensation intact and PERRL, EOMI, accommodation nl, no face palsy, no dysarthria Psychiatric: A+Ox3, euthymic affect Lymphatic: no cervical or axillary lymphadenopathy Results & Data Vital Signs (Past 12 Hours) Vital Signs Temp Pulse Resp BP Pulse Ox 10/30/18 15:17 36.7 C 80 19 116/75 95 10/30/18 07:10 36.5 C 85 18 125/88 96 Laboratory Results Laboratory Results - last 24 hr 10/30/18 10/30/18 10/30/18 07:25 07:27 07:27 WBC 12.16 H RBC 4.78 Hgb 14.1 Hct 41.3 L MCV 86.4 MCH 29.5 MCHC 34.1 RDW Std Deviation 49.9 H RDW Coeff of [place] 15.7 H Plt Count 306 MPV 10.6 H Immature Gran % (Auto) 2.1 Neut % (Auto) 78.7 Lymph % (Auto) 13.1 [place]vier % (Auto) 4.5 Eos % (Auto) 1.2 Baso % (Auto) 0.4 Immature Gran # (Auto) 0.26 H Neut # (Auto) 9.57 H Lymph # (Auto) 1.59 [place]vier # (Auto) 0.55 Eos # (Auto) 0.14 Baso # (Auto) 0.05 Schistocytes Occasional Sodium 137 Potassium 3.6 Chloride 107 Carbon Dioxide 23 Anion Gap 7.0 BUN 31 H Creatinine 1.64 H 1.58 H Est Cr Clr Drug Dosing 61.2 63.5 Est GFR ( Amer) 47.4 49.6 Est GFR (Non-Af Amer) 40.9 42.8 BUN/Creatinine Ratio 19.3 Glucose 95 Calcium 8.9 Medications Administered Current Inpatient Medications Acetaminophen (Tylenol) 650 mg PO Q4H PRN PRN Reason: pain/fever Stop: 11/22/18 17:43 Al Hydrox/Mg Hydrox/Simethicone (Maalox) 30 ml PO Q6H PRN PRN Reason: Dyspepsia Stop: 11/22/18 17:43 Last Admin: 10/25/18 06:10 Dose: 30 ml Documented by: Allopurinol (Zyloprim) 100 mg PO BID [facility] Stop: 11/22/18 20:59 Last Admin: 10/30/18 07:48 Dose: 100 mg Documented by: Colchicine (Colcrys) 0.6 mg PO DAILY [facility] Stop: 11/23/18 08:59 Last Admin: 10/30/18 07:47 Dose: 0.6 mg Documented by: Doxycycline Hyclate (Vibramycin) 100 mg PO BID [facility] Stop: 11/07/18 20:59 Last Admin: 10/30/18 07:47 Dose: 100 mg Documented by: Cefepime HCl 2,000 mg/ Syringe 20 mls @ 5.5 mls/min IV Q8H [facility]; Protocol Stop: 11/01/18 11:59 Last Admin: 10/30/18 12:10 Dose: 5.5 mls/min Documented by: Levothyroxine Sodium (Levothyroxine Sodium) 137 mcg PO DAILYBB [facility] Stop: 11/23/18 06:29 Last Admin: 10/30/18 05:57 Dose: 137 mcg Documented by: Lidocaine HCl (Xylocaine Jely 2%) 0 ml EXT UD PRN PRN Reason: NURSING SYRINGE Stop: 11/22/18 22:16 Metoprolol Succinate (Toprol Xl) 100 mg PO QPM [facility] Stop: 11/22/18 20:59 Last Admin: 10/29/18 20:38 Dose: 100 mg Documented by: Ondansetron HCl (Zofran) 4 mg IV Q6H PRN PRN Reason: Nausea Stop: 11/22/18 17:43 Prednisone (Prednisone) 40 mg PO QAM [facility] Stop: 11/27/18 11:59 Last Admin: 10/30/18 07:48 Dose: 40 mg Documented by: Tamsulosin HCl (Flomax) 0.4 mg PO HS [facility] Stop: 11/24/18 20:59 Last Admin: 10/29/18 20:38 Dose: 0.4 mg Documented by: Tramadol HCl (Ultram) 50 mg PO Q4H PRN PRN Reason: Pain Stop: 11/26/18 15:16 Warfarin Sodium (Coumadin) 5 mg PO SuTh@1600 [facility] Stop: 11/23/18 15:59 Last Admin: 10/27/18 16:10 Dose: 5 mg Documented by: Warfarin Sodium (Coumadin) 7.5 mg PO MoTuWeFrSa@1600 [facility] Stop: 11/22/18 19:59 Last Admin: 10/29/18 16:10 Dose: 7.5 mg Documented by: PG Care Time/CCT Total # of Minutes Spent Total Time Spent: 40 Total Time Spent with Patient: Total time spent is greater than 50% in coordination of care (as documented) at patient's floor/unit and/or counseling patient: (1) Ankle pain, left Chronicity: unspecified Qualified Code(s): M25.572 - Pain in left ankle and joints of left foot
[2018-10-30] MEDS: WARFARIN SOD 7.5 MG TAB PO SCH (16:55)
[2018-10-30] MEDS: METOPROLOL SUCC 50MG EXT REL TAB PO SCH (20:46)
[2018-10-30] MEDS: TAMSULOSIN HCL 0.4 MG CAP PO SCH (20:46)
[2018-10-31] MEDS: CEFEPIME 2,000 MG in SYRINGE 7.5 ML IV SCH ×2 (04:07→12:14)
[2018-10-31] MEDS: LEVOTHYROXINE SODIUM 137 MCG TABLET PO SCH (06:27)
[2018-10-31] MEDS: predniSONE 20 MG TAB PO SCH (07:53)
[2018-10-31] MEDS: COLCHICINE 0.6 MG TAB PO SCH (07:53)
[2018-10-31] MEDS: ALLOPURINOL 100 MG TAB PO SCH (07:54)
[2018-10-31] MEDS: DOXYCYCLINE HYCLATE 100 MG CAP PO SCH (07:54)
--- NOTE | 2018-10-31 15:19 | Discharge Summary ---
Date of Service October 31, 2018 Admission HPI Per Admitting Provider 72-year-old male with chronic venous insufficiency and chronic bilateral lower extremity edema. He also has chronic ulcerations between the toes of both feet, more pronounced on the left. He now has diffuse erythema tenderness and swelling of the left leg below the knee including the left foot consistent with cellulitis. Previous cultures have grown Pseudomonas and staph aureus. He was given vancomycin and cefepime in the ED which will be continued. He is on chronic Coumadin therapy due to chronic atrial fibrillation. INR is 3.0. He has chronic kidney disease. Wound care consultation will be requested. Consideration for dermatology consultation should be given to evaluate the chronic left forefoot ulcerations. Admission Exam Per Admitting Provider General-alert and oriented x3, no fevers, no chills HEENT-head atraumatic and normocephalic, TMs intact bilaterally, pupils equal and reactive to light, extraocular muscles intact Neck-no lymphadenopathy or thyromegaly, trachea midline Chest-clear to auscultation percussion. No rales wheezing or rhonchi Cardiac-irregular rhythm, normal S1 and S2, no JVD Abdomen-normal bowel sounds, nontender, no hepatosplenomegaly Extremities-bilateral chronic venous stasis changes and bilateral lower extremity edema more pronounced on the left leg with and diffuse erythema and tenderness of the left lower extremity below the knee including the left foot Skincrusted chronic appearing superficial ulcerations between multiple toes of the left foot. To a lesser extent on the right foot. Some forefoot areas appear to be tinea pedis. Dystrophic toenails noted bilaterally Neuro-cranial nerves II through XII intact, motor and sensory function within normal limits, strength symmetrical 5/5, no focal deficits Psych-normal affect, normal mood Principal Diagnosis Foot ulcer with cellulitis Discharge Exam Constitutional WD/WN, vitals as above + obese Eyes PERRL, conjunctivae normal, anicteric sclerae ENMT external ear and nose normal, oropharynx normal Neck trachea midline, no thyromegaly Respiratory normal respiratory effort, lungs clear to auscultation Cardiovascular RRR, no murmur, no edema Gastrointestinal (Abdomen) normal bowel sounds, soft, nontender, no hepatosplenomegaly Musculoskeletal no cyanosis or clubbing, extremities motor strength 5/5 Skin no rashes, warm and dry Neurologic patellar DTR's 2+ bilat, sensation intact and PERRL, EOMI, accommodation nl, no face palsy, no dysarthria Psychiatric A+Ox3, euthymic affect Lymphatic no cervical or axillary lymphadenopathy Discharge Data Allergies Allergy/AdvReac Type Severity Reaction Status Date / Time hydrochlorothiazide Allergy Unknown "shut down Verified 07/29/18 13:18 kidneys" Consultations 10/23/18 14:30 ED Decision to Admit Stat 10/24/18 10:35 Consult Podiatry Routine 10/24/18 21:28 Consult Urology Stat 10/25/18 09:54 Consult Orthopedic Surgery Routine 10/27/18 15:24 Consult Infectious Diseases Routine Procedures Performed Bedside debridement of foot ulcers Ordered Studies 10/25/18 12:46 US arterial duplex LE BI Routine Hospital Course (1) Cellulitis of left lower extremity: treated with vancomycin and cefepime. Previous cultures had revealed Pseudomonas and staph aureus. Consulted podiatry. Appreciate their input. current cultures growing Pseudomonas, Staph aureus and group B strep Continue current antibiotics. will consult ID for recommendations for Pseudomonas treatment plan: will use Cefepime on discharge, needs total of 21 days, includes what he received here changed Vanco to Doxycycline and will continue on discharge for total of 21 days as well after discharge will need 13 more additional days of antibiotics (both Cefepime and Doxycycline) patient inquired about needing to stay at [facility] for all 13 days discussed that if strong enough then maybe he could go home prior, but their caseworker intake would need to set up home IV Cefepime arterial ultrasound of lower extremity -- AUSTYN are within normal limits (2) Chronic ulcer of left foot: Wound care nurse consultation. NOTED ABOVE. podiatry please with healing changed dressings and cleaned wounds on 10/29 discharge instructions provided should follow up with Dr. Rodriguez in 1-2 weeks (3) Anticoagulated on Coumadin: INR therapeutic continue his home regimen of 5mg and 7.5mg (4) Chronic kidney disease, stage III (moderate): Cr remained between 1.4 and 1.6 during stay which is baseline, making adequate urine zimmerman in place due to urinary retention (5) Chronic atrial fibrillation: Controlled rate with metoprolol. Continue Coumadin therapy. follow INR at [facility], has been stable while hospitalized (6) Hypertension: Controlled with metoprolol (7) Acute retention of urine: zimmerman pulled on 8/5 unable to void new zimmerman placed 8/[address] on discharge, follow up with urology in 10-14 days for voiding trial (8) Ankle pain, left: likely acute gouty arthritis treated with Prednisone, renal function limits use of NSAIDs Ultram PRN use Prednisone for 7 days, today is day 5 so two more days after discharge no need for taper since only treated 7 days pain much improved, ambulating a lot better Total Time Total Time Spent Total Time Spent (In Minutes): 40 minutes Total Time Includes: Examination of the Patient, Discharge Planning and Medication Reconciliation Discharge Plan Discharge Items Patient Disposition: Transfer Residential Fac Reason For Visit: CELLULITIS LEFT LOWER EXTREMITY Discharge Diagnosis: Cellulitis Urinary retention Acute gouty arthritis Condition: Good Discharge Goals: Improve disease control and Improve function Activity: Resume your previous activity Non-emergency contact: Primary Care Provider and Urologist Call non-emergency contact if: you have any medication questions, your symptoms worsen and you have a fever Follow-up/Referrals: Clovis Heredia [Primary Care Provider] - Diet: Heart Healthy Addtl Provider Instructions: Medications: - CEFEPIME: 2gm every 8 hours for 13 more days - DOXYCYCLINE: 100mg twice a day for 13 more days - PREDNISONE: 40mg a day for only 2 more days - FLOMAX: 0.4 mg daily - COUMADIN: 5mg on Sun Deena and 7.5mg on MoTuWeFrSa Diabetic wounds of toes with cellulitis wound cultures grew MSSA, Pseudomonas, Group B strep Infectious disease recommends treatment with Cefepime and Doxycycline continue for 13 more days for 21 days total podiatry cared for wounds during admission see instructions below for wound care Dr. Tahira Rodriguez would like to see the patient in 1-2 weeks in office at [facility] [phone] wound instructions: xerform, gauze and roll gauze changed daily Urinary Retention zimmerman catheter placed by urology, voiding trial attempted 5 days later, could not void new catheter placed, will stay in place with leg bag on discharge started on Flomax urology would like to see in office in 10 days for voiding trial, Acute gouty arthritis left ankle, responded well to Prednisone, complete 2 more days cannot take NSAIDs due to CKD stage III continue on Allopurinol and Colchicine Prescriptions: New doxycycline hyclate 100 mg Capsule 100 mg PO BID 13 Days Qty: 26 RF: 0 tamsulosin 0.4 mg Capsule 0.4 mg PO HS 30 Days Qty: 30 RF: 0 cefepime 2 gram recon soln 2 gm IV Q8H 13 Days Qty: 39 RF: 0 Continued allopurinol 100 mg tablet 100 mg PO BID RF: 0 metoprolol succinate 100 mg Tablet Extended Release 24 Hr 100 mg PO QPM Qty: 0 RF: 0 levothyroxine 137 mcg Tablet 137 mcg PO DAILY RF: 0 colchicine 0.6 mg tablet 0.6 mg PO DAILY RF: 0 warfarin 5 mg tablet See Rx Instructions PO UD Qty: 0 RF: 0 Stand-Alone Forms: [facility] Discharge Orders: Discharge Order (Routine); Ordered 10/31/18 Ordered By: Gideon Greer Skilled Items Patient informed of condition?: Yes DNR: No Discharge Level of Care: Skilled Communicable Disease: No Discharge Prognosis: Stable Admission Data Admit Date/Time: 10/23/18 16:06 Attending Provider: Gideon Greer Admit Provider: Dieudonne Hitchcock Primary Care Provider: Clovis Heredia Other Providers: Dieudonne Hitchcock ; Tahira Rodriguez ; Arben Caballero II ; Reilly Vines ; Jean Gregorio ; Stanford Sandy ; Belkys Rivas ; Amee Quinn ; Rocco Sawyer ; Moe Bundy ; Brandan Davey ; Brandan Whitfield ; Tresa Barlow ; Trevon Coy ; Abelino Chapman Service: Medical Other Interventions: Discharge Summary Assessment (RN) Last Done: 10/31/18 14:42 Pending Studies at Discharge: No DC Date/Time DO NOT enter until pt leaves facility: 10/31/18 15:45
== END 2018-10-31 15:45 | DRG 603 ==
LOC: ED 11:10 → SUATTDRO 16:06 → 4W 16:06
DX: E03.9 Hypothyroidism, unspecified; B95.1 Streptococcus, group B, as the cause of diseases classified elsewhere; L03.116 Cellulitis of left lower limb; E66.9 Obesity, unspecified; B96.5 Pseudomonas (aeruginosa) (mallei) (pseudomallei) as the cause of diseases classified elsewhere; R33.9 Retention of urine, unspecified; N18.3 Chronic kidney disease, stage 3 (moderate); Z68.39 Body mass index [BMI] 39.0-39.9, adult; I48.2 Chronic atrial fibrillation; I12.9 Hypertensive chronic kidney disease with stage 1 through stage 4 chronic kidney disease, or unspecified chronic kidney disease; Z79.01 Long term (current) use of anticoagulants; B95.61 Methicillin susceptible Staphylococcus aureus infection as the cause of diseases classified elsewhere; M10.072 Idiopathic gout, left ankle and foot; I87.2 Venous insufficiency (chronic) (peripheral); Z86.718 Personal history of other venous thrombosis and embolism; B35.3 Tinea pedis; Z87.891 Personal history of nicotine dependence; Q54.9 Hypospadias, unspecified; L97.529 Non-pressure chronic ulcer of other part of left foot with unspecified severity

== ENCOUNTER 2019-09-23 09:55 | Inpatient (IN) ==
[2019-09-23] MEDS ORDERED: CEFEPIME 2,000 MG/20 ML VIAL IV STA (11:07)
[2019-09-23] MEDS ORDERED: SODIUM CHLORIDE 0.9% 1000ML 1,000 ML IV ONE (11:09)
--- NOTE | 2019-09-23 11:16 | Emergency Department Note ---
Impression & Plan Sepsis, Leukocytosis, DALE (acute kidney injury), Cellulitis, Right shoulder strain, Chest wall contusion, Left leg swelling ED Provider Note NAME: ANNAMARIE LARSEN AGE: 73 SEX: M : 1945 ARRIVES VIA: Walk-In INFORMANT: [Patient] ED PROVIDER(S): [Aly Washburn MD] CHIEF COMPLAINT: Left ankle and leg swelling. Right shoulder pain. HISTORY OF PRESENT ILLNESS: The patient is a 73-year-old male who has had around 5 days of left leg and foot swelling. The swelling started when he woke up in the morning-there was no trauma. When he tries to walk on the left foot and ankle, the pain is a 9/10. Sitting still, the pain is a 2/10. Yesterday, he noticed a fever. The fever was not present today. The patient states that yesterday, he lost his balance and fell landing on his right shoulder. He has anterior right shoulder pain that is a 9/10 with any shoulder movement. He also has some bruising to the right lateral ribs. He is not short of breath. He denies losing consciousness or hitting his head. There is no neck pain or abdominal pain. He has not had urinary complaints, vomiting or diarrhea. The patient was sent here by his outpatient clinic. There was concern for injury to the shoulder as well as potential infection in the left lower extremit y versus DVT. REVIEW OF SYSTEMS: See HPI for pertinent positives and negatives. A total of ten systems were reviewed and were otherwise negative. PMHx/PSHx: See Below SOCIAL HISTORY: See Below. PHYSICAL EXAM: GENERAL: Patient is in no acute distress. HEENT: No acute trauma, normocephalic atraumatic, mucous membranes moist, no nasal congestion, no scleral icterus. NECK: No stridor, no adenopathy, no meningismus, trachea is midline. LUNGS: Clear to auscultation bilaterally, no wheeze, no rhonchi, breath sounds equal. HEART: No murmurs heard, rhythm is irregular, there is a mild tachycardia. Chest: The patient has some bruising to the right lateral superior chest wall in the area of the axilla. He is somewhat tender here. ABDOMEN: Soft, nontender, bowel sounds positive, no hernias, no peritonitis. EXTREMITIES: There is no cyanosis. The patient has significant edema of the left lower extremity and foot when compared to the right. There is some chronic skin change. There is some darkness to the skin of the lower legs bilaterally, no warmth or drainage. The patient is painful to palpate the right anterior shoulder. There is no evidence for dislocation clinically. The patient has pain to move the shoulder in any direction. NEUROLOGIC: Oriented x 3, no acute motor or sensory deficits, no focal weakness. SKIN: No jaundice, no diaphoresis. DIFFERENTIAL DIAGNOSIS: Sepsis, UTI, pneumonia, metabolic, electrolyte abnormalities, cellulitis, rib fracture, shoulder fracture, ankle or foot fracture, shoulder dislocation, intracranial bleeding, cardiac sources, intracerebral event, toxicologic, neurologic, as well as other pathologies. EMERGENCY DEPARTMENT COURSE/PROCEDURES: ECG: Indication was irregular rhythm. The ECG shows atrial fibrillation with an occasional PVC. The rate is 110. The QTc is 433. There is a right bundle branch block. There are inverted T waves in the inferior and lateral leads. Compared to an ECG from 23 October 2018, there is no significant change. Continuous Cardiac Monitoring: An order was placed for continuous cardiac monitoring. The monitor shows a rate of 105 with atrial fibrillation. Critical Care Note: I have personally spent greater than 44 minutes of critical care time in the direct management of this patient. This includes bedside care, interpretation of diagnostic studies, and testing, discussion with consultants, patient, and family members, and other required patient management activities. This 44 minutes is in excess of all separately billable procedures. MEDICAL DECISION MAKING: There is a significant leukocytosis at 29,000, this of course is consistent with infection. No anemia. There is a normal platelet count. INR is elevated at 4.2, he is over anticoagulated on his Coumadin. There is evidence for some acute kidney injury with a creatinine of 2.63, this is above baseline for the patient. CO2 slightly low at 18. Lactic acid level was not significantly elevated making severe sepsis less likely. There were a few subtle liver enzyme elevations. Urinalysis result is currently pending. Chest CT did not show any evidence for pneumonia, there was no rib fracture or acute lung injury. Brain CT showed no acute bleed or mass-effect. Right shoulder film did not show any dislocation or fracture. Films of the left ankle and left foot were performed, there was no acute fracture or bony dislocation. Left leg ultrasound does not show any evidence for acute DVT, a chronic thrombus was seen. The patient presents with a fever, left leg discomfort and swelling. The patient was aggressively managed given his findings. He did meet criteria for sepsis. He was given IV saline, 1 L. He was given IV cefepime and IV daptomycin as empiric antibiotic coverage. The patient is resting comfortably. His blood pressure seems to have improved. I do think he requires a hospital stay. He very likely has a left leg cellulitis as the cause for his left leg pain and swelling, his leukocytosis and fever. He appears to have contused or strained the right shoulder, he has contused the right chest wall. I did speak to the patient about his findings, I spoke with case management. Hospitalization is warranted. The on-call hospitalist was consulted. Past Med/Surg History Medical History Atrial fibrillation, chronic (Acute) BPH (benign prostatic hyperplasia) Cellulitis of left anterior lower leg (Acute) Chronic atrial fibrillation (Chronic) Chronic kidney disease, stage III (moderate) (Chronic) Chronic ulcer of left foot (Chronic) Gout (Chronic) Hearing deficit History of basal cell carcinoma Hypertension (Chronic) Hypothyroidism (Acute) no longer on any meds Obesity (Acute) On anticoagulant therapy Penile hypospadias Prediabetes (Acute) Renal cyst Sleep apnea cpap Surgical History History of esophagogastroduodenoscopy (EGD) Family History Other Hearing loss No family history of adverse response to anesthesia No family history of bleeding disorder Denies family history of Heart disease Allergies Cancer Hypertension Stroke Asthma Social History Preferred Language: Sami Communication Ability: Effective Oyster Sorter Required: No Beliefs That Will Affect Care: Zoroastrian Zoroastrian Beliefs: Mosque marital status: Current Living Situation: Spouse current occupational status: retired Feels Safe at Home: Yes Smoking Status: Former smoker Tobacco Type: cigarettes ; packs per day: 1 ; Second Hand Exposure: No ; Hx Alcohol Use: Yes Alcohol type: beer, wine and hard liquor Alcohol Intake Frequency: Weekly Alcohol Intake Frequency Comment: 1 bottle of champagne / week Hx Substance Use: No Allergies Allergies Allergy/AdvReac Type Severity Reaction Status Date / Time hydrochlorothiazide Allergy Unknown "shut down Verified 09/23/19 11:30 kidneys" Home Meds Home Medications Medication Instructions Recorded Confirmed metoprolol succinate 100 mg PO QPM #0 08/07/16 09/23/19 levothyroxine 137 mcg PO QAM 07/29/18 09/23/19 allopurinol 300 mg tablet 300 mg PO QAM 01/02/19 09/23/19 warfarin 5 mg tablet See Rx Instructions PO UD tab 04/21/19 09/23/19 ciprofloxacin-dexamethasone 4 drp OTB BID 09/23/19 09/23/19 Results & Data (ED) Vital Signs Vital Signs - 24 hr 09/23/19 09:58 09/23/19 12:39 09/23/19 13:13 Temperature 36.9 C Temperature Source Oral Pulse Rate 103 H 111 H 109 H Pulse Rhythm Regular Pulse Strength Normal Respiratory Rate 20 22 24 Respiratory Effort / Characteristics Non-Labored Spontaneous Respiratory Depth Normal Respiratory Pattern Regular Blood Pressure 98/65 L 116/77 128/85 Blood Pressure Mean 76 82 105 Pulse Oximetry 95 Oxygen Delivery Method Room Air Sepsis Recent Fever Within 48 Hours No Sepsis Action Taken by Nursing No Action Required 09/23/19 13:15 09/23/19 13:30 Temperature Temperature Source Pulse Rate 108 H 105 H Pulse Rhythm Pulse Strength Respiratory Rate 24 27 H Respiratory Effort / Characteristics Respiratory Depth Respiratory Pattern Blood Pressure 121/91 113/77 Blood Pressure Mean 98 81 Pulse Oximetry Oxygen Delivery Method Sepsis Recent Fever Within 48 Hours Sepsis Action Taken by Custodial Medications Current Medication List: was personally reviewed by me Laboratory Data Attestation: I reviewed the patient's lab results. Result diagrams: 09/23/19 11:20 09/23/19 11:20 Lab Results 09/23/19 09/23/19 09/23/19 Range/Units 11:20 11:20 11:20 WBC 29.29 H (4.8-10.8) K/uL RBC 4.99 (4.7-6.1) M/uL Hgb 16.1 (14.0-18.0) g/dL Hct 45.7 (42-52) % MCV 91.6 (80-100) fL MCH 32.3 (25-34) pg MCHC 35.2 (32-36) g/dL RDW Std Deviation 52.2 H (36.4-46.3) fL RDW Coeff of [place] 15.6 H (11.5-14.5) % Plt Count 201 (130-400) K/uL MPV 11.9 H (7.4-10.4) fL Immature Gran % (Auto) 1.6 % Neut % (Auto) 90.0 % Lymph % (Auto) 3.6 % Villalba % (Auto) 4.7 % Eos % (Auto) 0.0 % Baso % (Auto) 0.1 % Neut # (Auto) 26.37 H (1.4-6.5) K/uL Lymph # (Auto) 1.05 L (1.2-3.4) K/uL Villalba # (Auto) 1.37 H (0.11-0.59) K/uL Eos # (Auto) 0.00 (0-0.5) K/uL Baso # (Auto) 0.03 (0-0.2) K/uL Immature Gran # (Auto) 0.47 H (0.00-0.02) K/uL PT 40.8 H (9.0-12.0) Seconds INR 4.2 H (0.9-1.1) APTT 67.0 H* (21.0-31.0) Seconds PTT Ratio 2.4 Sodium 133 L (136-145) mmol/L Potassium 4.2 (3.5-5.1) mmol/L Chloride 105 (98-107) mmol/L Carbon Dioxide 18 L (21-32) mmol/L Anion Gap 10.0 (3-11) BUN 43 H (7-18) mg/dl Creatinine 2.63 H (0.6-1.4) mg/dl Est Cr Clr Drug Dosing 37.5 ml/min Est GFR ( Amer) 26.6 Est GFR (Non-Af Amer) 22.9 BUN/Creatinine Ratio 16.3 (10-20) Glucose 105 H (70-99) mg/dl Lactate (0.4-2.0) mmol/L Calcium 9.2 (8.5-10.1) mg/dl Magnesium 2.1 (1.8-2.4) mg/dl Total Bilirubin 1.8 H (0.2-1) mg/dl AST 42 H (15-37) U/L ALT 40 (12-78) U/L Alkaline Phosphatase 107 (45-117) U/L Troponin I < 0.015 (0-0.045) ng/ml Total Protein 7.9 (6.4-8.2) gm/dl Albumin 2.4 L (3.4-5.0) gm/dl Globulin 5.5 H (2.5-4.0) gm/dl Albumin/Globulin Ratio 0.4 L (0.9-2) 06/30/20 Range/Units 11:20 WBC (4.8-10.8) K/uL RBC (4.7-6.1) M/uL Hgb (14.0-18.0) g/dL Hct (42-52) % MCV (80-100) fL MCH (25-34) pg MCHC (32-36) g/dL RDW Std Deviation (36.4-46.3) fL RDW Coeff of [place] (11.5-14.5) % Plt Count (130-400) K/uL MPV (7.4-10.4) fL Immature Gran % (Auto) % Neut % (Auto) % Lymph % (Auto) % Villalba % (Auto) % Eos % (Auto) % Baso % (Auto) % Neut # (Auto) (1.4-6.5) K/uL Lymph # (Auto) (1.2-3.4) K/uL Villalba # (Auto) (0.11-0.59) K/uL Eos # (Auto) (0-0.5) K/uL Baso # (Auto) (0-0.2) K/uL Immature Gran # (Auto) (0.00-0.02) K/uL PT (9.0-12.0) Seconds INR (0.9-1.1) APTT (21.0-31.0) Seconds PTT Ratio Sodium (136-145) mmol/L Potassium (3.5-5.1) mmol/L Chloride (98-107) mmol/L Carbon Dioxide (21-32) mmol/L Anion Gap (3-11) BUN (7-18) mg/dl Creatinine (0.6-1.4) mg/dl Est Cr Clr Drug Dosing ml/min Est GFR ( Amer) Est GFR (Non-Af Amer) BUN/Creatinine Ratio (10-20) Glucose (70-99) mg/dl Lactate 1.4 (0.4-2.0) mmol/L Calcium (8.5-10.1) mg/dl Magnesium (1.8-2.4) mg/dl Total Bilirubin (0.2-1) mg/dl AST (15-37) U/L ALT (12-78) U/L Alkaline Phosphatase (45-117) U/L Troponin I (0-0.045) ng/ml Total Protein (6.4-8.2) gm/dl Albumin (3.4-5.0) gm/dl Globulin (2.5-4.0) gm/dl Albumin/Globulin Ratio (0.9-2) Administered Medications Sodium Chloride (Nss 1000ml) 1,000 mls @ 125 mls/hr IV .Q8H ROYA Stop: 09/23/19 22:49 Last Admin: 09/23/19 15:17 Dose: 125 mls/hr Documented by: [id number] Discontinued Medications Cefepime HCl (Maxipime) 2,000 mg in 20 mls @ 5 mls/min IV NOW STA; Protocol Stop: 09/23/19 11:10 Last Admin: 09/23/19 12:07 Dose: 5 mls/min Documented by: [id number] Sodium Chloride (Nss 1000ml) 1,000 mls @ 999 mls/hr IV .Q1H1M ONE Stop: 09/23/19 12:09 Last Infusion: 09/23/19 13:12 Dose: 0 mls/hr Documented by: [id number] Admin: 09/23/19 12:07 Dose: 999 mls/hr Documented by: [id number] Daptomycin 650 mg/ Syringe 13 mls @ 6.5 mls/min IV NOW STA; Protocol Stop: 09/23/19 13:09 Last Admin: 09/23/19 13:37 Dose: 6.5 mls/min Documented by: [id number] Imaging Data Radiologist's Impression: XR foot LT min 3V routine CLINICAL HISTORY: pain, redness, fall COMPARISON: Left foot radiographs October 23, 2018. FINDINGS: Diffuse soft tissue swelling of the left lower leg, ankle and foot is noted. There is moderate plantar calcaneal spurring. No acute fracture within the left foot is noted. There is a healed fracture of the left fourth metatarsal. Joint space narrowing with osteonecrosis and subchondral cystic change within the mid foot is unchanged. IMPRESSION: 1. No acute fracture or dislocation within the left foot. 2. Diffuse left foot and ankle soft tissue swelling. 3. Left midfoot osteoarthritis. RIGHT SHOULDER 3 VIEWS CLINICAL HISTORY: Fall with right shoulder pain. FINDINGS: 3 views of the right shoulder are obtained. No prior studies are available for comparison at the time of dictation. The skeletal structures are osteopenic. There is no radiographic evidence of fracture or dislocation. P roductive degenerative change is seen at the acromioclavicular joint. The glenohumeral articulation is preserved. Degenerative spurring is noted along the medial aspect of the humeral head. Mild overlying soft tissue edema is noted. The visualized right lung parenchyma appears clear. IMPRESSION: Soft tissue swelling with no acute bony abnormality identified. LEFT ANKLE 3 VIEWS CLINICAL HISTORY: Fall with left ankle injury. FINDINGS: 3 views of the left ankle are compared to study dated 10/23/2018. The skeletal structures are osteopenic. No acute fracture is identified. The ankle mortise is intact. There is a large plantar calcaneal enthesophyte. Degenerative spurring is noted along the dorsal aspect of the tarsal bones. Diffuse soft tissue edema is present throughout the imaged left lower extremity. IMPRESSION: 1. Diffuse soft tissue edema with no fracture identified. 2. Osteopenia, large plantar heel spur, and degenerative change as above. CT SCAN OF THE CHEST WITHOUT IV CONTRAST CLINICAL HISTORY: Fall. Right-sided chest wall pain. COMPARISON STUDY: Chest CT dated 08/08/2016. TECHNIQUE: CT scan of the thorax was performed from the thoracic inlet to the upper abdomen. Images are reviewed in the axial, sagittal, and coronal planes. IV contrast was not administered for this examination as per the referring clinician. A dose lowering technique was utilized adhering to the principles of ALARA. The examination is degraded by large body habitus, and by streak artifact from the body wall abutting the CT gantry. There is also motion artifact. FINDINGS: Thyroid: Imaged portions of the thyroid gland are normal in size and attenuation. Thoracic aorta: There is mild atherosclerotic calcification of the thoracic aorta. There is aneurysmal dilatation of the ascending thoracic aorta which measures up to 5 cm in diameter. The remainder of the thoracic aorta is normal in caliber. The arch demonstrates bovine variant anatomy. Heart: The heart is enlarged noting a small pericardial effusion. The coronary arteries are densely calcified. The main pulmonary arteries are dilated sug gesting pulmonary artery hypertension. Lungs and pleural spaces: There is no airspace consolidation, pleural effusion, or pneumothorax. Scarring/atelectasis is noted at the lung bases. The trachea an d central airways are clear. Mediastinum: There is no mediastinal hematoma or lymphadenopathy. There calcification containing mediastinal nodes. Polly: Calcified hilar nodes are incidentally noted. The polly are not well assessed without IV contrast. Axillae: There is no axillary lymphadenopathy. Upper abdomen: There is a small hiatal hernia. Calcified granulomas are noted in the spleen. Scattered granulomas are also noted in the liver. Large cysts are partially visualized arising from the upper poles of both kidneys. A cyst on the right measures at least 11.4 cm. Cyst on the left measure at least 4.1 cm. These were also seen in 2017. Parenchymal calcifications of the pancreatic tail are u nchanged from previous and suggest chronic pancreatitis. Skeletal structures: The skeletal structures are osteopenic. The bony thorax appears intact. No lytic or blastic bony lesions are seen. Arthritic change is seen in the shoulders. There is asymmetric atrophy of the right shoulder musculature as compared to the left. IMPRESSION: 1. There is no acute posttraumatic intrathoracic abnormality. 2. There is no airspace consolidation, pleural effusion, or pneumothorax. 3. Marked cardiomegaly. 4. There is aneurysmal dilatation of the ascending thoracic aorta which measures up to 5.0 cm in diameter. This has only modestly increased from the 2017 examination. 5. The bony thorax appears intact. 6. Additional findings as above. CT head/brain wo con CT DOSE: 1616.29 mGy.cm HISTORY: Trauma. Mental status change. fall, on coumadin TECHNIQUE: Multiaxial CT images of the head were performed without the use of intravenous contrast. A dose lowering technique was utilized adhering to the principles of ALARA. Comparison: None. Findings: The paranasal sinuses and mastoid air cells are clear. The calvarium and skull base are intact. The ventricles and sulci are within normal limits. There is no mass, hematoma, midline shift, or acute infarct. Impression: No acute intracranial abnormality. US venous doppler LE LT CLINICAL HISTORY: hist clot, swelling PAIN. EDEMA. COMPARISON STUDY: 07/29/2018 FINDINGS: Chronic thrombophlebitis involving the left popliteal vein. Remaining venous structures are patent. Compressibility is compromised. IMPRESSION: 1. Chronic thrombophlebitis left popliteal vein. 2. No evidence for acute deep venous thrombosis. Blood Pressure Blood Pressure Findings: Low blood pressure Blood Pressure Disposition: further management by hospitalist Discharge Plan Visit Data *Final* Discharge Date/Time: 09/23/19 13:58 Chief Complaint: Ankle Pain Stated Complaint: LT ANKLE, RT SHOULDER PAIN ED Provider: Aly Washburn Discharge Problem: Sepsis, Leukocytosis, DALE (acute kidney injury), Cellulitis, Right shoulder strain, Chest wall contusion, Left leg swelling Patient Disposition: Admitted As Inpatient Condition: Fair Discharge Instructions Interventions: ED Discharge Assessment Last Done: 09/23/19 13:58 Discharge Problem: Sepsis Qualifiers: Sepsis type: sepsis due to unspecified organism Sepsis acute organ dysfunction status: with acute organ dysfunction Severe sepsis acute organ dysfunction type: acute renal failure Acute renal failure type: unspecified Severe sepsis shock status: without septic shock Qualified Code(s): A41.9 - Sepsis, unspecified organism Leukocytosis Qualifiers: Leukocytosis type: unspecified Qualified Code(s): D72.829 - Elevated white blood cell count, unspecified Cellulitis Qualifiers: Site of cellulitis: extremity Site of cellulitis of extremity: lower extremity Laterality: left Qualified Code(s): L03.116 - Cellulitis of left lower limb Right shoulder strain Qualifiers: Encounter type: initial encounter Qualified Code(s): S46.911A - Strain of unspecified muscle, fascia and tendon at shoulder and upper arm level, right arm, initial encounter Chest wall contusion Qualifiers: Encounter type: initial encounter Laterality: right Qualified Code(s): S20.211A - Contusion of right front wall of thorax, initial encounter
--- NOTE | 2019-09-23 11:31 | XRay Report ---
LEFT ANKLE 3 VIEWS CLINICAL HISTORY: Fall with left ankle injury. FINDINGS: 3 views of the left ankle are compared to study dated 10/23/2018. The skeletal structures ar e osteopenic. No acute fracture is identified. The ankle mortise is intact. There is a large plantar calcaneal enthesophyte. Degenerative spurring is noted along the dorsal aspect of the tarsal bones. D iffuse soft tissue edema is present throughout the imaged left lower extremity. IMPRESSION: 1. Diffuse soft tissue edema with no fracture identified. 2. Osteopenia, large plantar heel spur, and degenerative change as above. Electronically signed by: Aly Devine M.D. 09/23/2019 11:29 AM
--- NOTE | 2019-09-23 11:32 | XRay Report ---
RIGHT SHOULDER 3 VIEWS CLINICAL HISTORY: Fall with right shoulder pain. FINDINGS: 3 views of the right shoulder are obtained. No prior studies are available for comparison a t the time of dictation. The skeletal structures are osteopenic. There is no radiographic evidence of fracture or dislocation. Productive degenerative change is seen at the acromioclavicular joint. The glenohumeral articulation is preserved. Degenerative spurring is noted along the medial aspect of the humeral head. Mild overlying soft tissue edema is noted. The visualized right lung parenchyma appear s clear. IMPRESSION: Soft tissue swelling with no acute bony abnormality identified. Electronically signed by: Aly Devine M.D. 09/23/2019 11:30 AM
--- NOTE | 2019-09-23 11:33 | XRay Report ---
XR foot LT min 3V routine CLINICAL HISTORY: pain, redness, fall COMPARISON: Left foot radiographs October 23, 2018. FINDINGS: Diffuse soft tissue swelling of the left lower leg, ankle and foot is noted. There is mode rate plantar calcaneal spurring. No acute fracture within the left foot is noted. There is a healed f racture of the left fourth metatarsal. Joint space narrowing with osteonecrosis and subchondral cysti c change within the mid foot is unchanged. IMPRESSION: 1. No acute fracture or dislocation within the left foot. 2. Diffuse left foot and ankle soft tissue swelling. 3. Left midfoot osteoarthritis. ACT 112: Negative or not required by law. Electronically signed by: Calvin Preciado M.D. 09/23/2019 11:31 AM
[2019-09-23 11:42] LABS: Hematocrit (blood only) 45.7 % (42-52); Hemoglobin 16.1 g/dL (14.0-18.0); Mean Corpuscular Hemoglobin 32.3 pg (25-34); Mean Corpuscular Hgb Conc 35.2 g/dL (32-36); Mean Corpuscular Volume 91.6 fL (80-100); Mean Platelet Volume 11.9 fL (7.4-10.4); Platelet Count 201 K/uL (130-400); RDW Coefficient of Variation 15.6 % (11.5-14.5); RDW Standard Deviation 52.2 fL (36.4-46.3); Red Blood Count 4.99 M/uL (4.7-6.1); White Blood Count 29.29 K/uL (4.8-10.8)
[2019-09-23 11:58] LABS: Albumin Level 2.4 gm/dl (3.4-5.0); Aspartate Aminotransferase 42 U/L (15-37); BUN Creatinine Ratio 16.3 (10-20); Blood Urea Nitrogen 43 mg/dl (7-18); Calcium 9.2 mg/dl (8.5-10.1); Carbon Dioxide 18 mmol/L (21-32); Chloride 105 mmol/L (98-107); Creatinine Clr Calc Pharmacy 37.5 ml/min; Est GFR (African American) 26.6; Est GFR (Non-African American) 22.9; Glucose 105 mg/dl (70-99); Magnesium 2.1 mg/dl (1.8-2.4); Potassium 4.2 mmol/L (3.5-5.1); Sodium 133 mmol/L (136-145)
[2019-09-23 12:03] LABS: Alanine Aminotransferase 40 U/L (12-78); Albumin Globulin Ratio 0.4 (0.9-2); Alkaline Phosphatase 107 U/L (45-117); Bilirubin,Total 1.8 mg/dl (0.2-1); Globulin 5.5 gm/dl (2.5-4.0); Total Protein 7.9 gm/dl (6.4-8.2); Troponin I < 0.015 ng/ml (0-0.045)
[2019-09-23 12:05] LABS: Basophils # (auto) 0.03 K/uL (0-0.2); Basophils % (auto) 0.1 %; Immature Granulocytes # (auto) 0.47 K/uL (0.00-0.02); Immature Granulocytes % (auto) 1.6 %; Lymphocytes # (auto) 1.05 K/uL (1.2-3.4); Lymphocytes % (auto) 3.6 %; Monocytes # (auto) 1.37 K/uL (0.11-0.59); Monocytes % (auto) 4.7 %; Neutrophils # (auto) 26.37 K/uL (1.4-6.5)
--- NOTE | 2019-09-23 12:05 | CT Scan Report ---
CT head/brain wo con CT DOSE: 1616.29 mGy.cm HISTORY: Trauma. Mental status change. fall, on coumadin TECHNIQUE: Multiaxial CT images of the head were performed without the use of intravenous contrast. A dose lowering technique was utilized adhering to the principles of ALARA. Comparison: None. Findings: The paranasal sinuses and mastoid air cells are clear. The calvarium and skull base are int act. The ventricles and sulci are within normal limits. There is no mass, hematoma, midline shift, or acute infarct. Impression: No acute intracranial abnormality. ACT 112: Negative or not required by law. The above report was generated using voice recognition software. It may contain grammatical, syntax or spelling errors. Electronically signed by: Eyal Luna M.D. 09/23/2019 12:04 PM
[2019-09-23 12:07] LABS: INR 4.2 (0.9-1.1); Partial Thromboplastin Ratio 2.4; Prothrombin Time 40.8 Seconds (9.0-12.0)
--- NOTE | 2019-09-23 12:16 | CT Scan Report ---
CT SCAN OF THE CHEST WITHOUT IV CONTRAST CLINICAL HISTORY: Fall. Right-sided chest wall pain. COMPARISON STUDY: Chest CT dated 08/08/2016. TECHNIQUE: CT scan of the thorax was performed from the thoracic inlet to the upper abdomen. Images are reviewed in the axial, sagittal, and coronal planes. IV contrast was not administered for this ex amination as per the referring clinician. A dose lowering technique was utilized adhering to the [facility] [place]. The examination is degraded by large body habitus, and by streak artifact from the body wall abutting the CT gantry. There is also motion artifact. FINDINGS: Thyroid: Imaged portions of the thyroid gland are normal in size and attenuation. Thoracic aorta: There is mild atherosclerotic calcification of the thoracic aorta. There is aneurysma l dilatation of the ascending thoracic aorta which measures up to 5 cm in diameter. The remainder of the thoracic aorta is normal in caliber. The arch demonstrates bovine variant anatomy. Heart: The heart is enlarged noting a small pericardial effusion. The coronary arteries are densely c alcified. The main pulmonary arteries are dilated suggesting pulmonary artery hypertension. Lungs and pleural spaces: There is no airspace consolidation, pleural effusion, or pneumothorax. Scar ring/atelectasis is noted at the lung bases. The trachea and central airways are clear. Mediastinum: There is no mediastinal hematoma or lymphadenopathy. There calcification containing medi astinal nodes. Polly: Calcified hilar nodes are incidentally noted. The polly are not well assessed without IV contras t. Axillae: There is no axillary lymphadenopathy. Upper abdomen: There is a small hiatal hernia. Calcified granulomas are noted in the spleen. Scattere d granulomas are also noted in the liver. Large cysts are partially visualized arising from the upper poles of both kidneys. A cyst on the right measures at least 11.4 cm. Cyst on the left measure at le ast 4.1 cm. These were also seen in 2017. Parenchymal calcifications of the pancreatic tail are uncha nged from previous and suggest chronic pancreatitis. Skeletal structures: The skeletal structures are osteopenic. The bony thorax appears intact. No lytic or blastic bony lesions are seen. Arthritic change is seen in the shoulders. There is asymmetric atr ophy of the right shoulder musculature as compared to the left. IMPRESSION: 1. There is no acute posttraumatic intrathoracic abnormality. 2. There is no airspace consolidation, pleural effusion, or pneumothorax. 3. Marked cardiomegaly. 4. There is aneurysmal dilatation of the ascending thoracic aorta which measures up to 5.0 cm in diam eter. This has only modestly increased from the 2017 examination. 5. The bony thorax appears intact. 6. Additional findings as above. ACT 112: Negative or not required by law. Electronically signed by: Aly Devine M.D. 09/23/2019 12:15 PM
--- NOTE | 2019-09-23 12:29 | Ultrasound Report ---
US venous doppler LE LT CLINICAL HISTORY: hist clot, swelling PAIN. EDEMA. COMPARISON STUDY: 07/29/2018 FINDINGS: Chronic thrombophlebitis involving the left popliteal vein. Remaining venous structures are patent. Compressibility is compromised. IMPRESSION: 1. Chronic thrombophlebitis left popliteal vein. 2. No evidence for acute deep venous thrombosis. ACT 112: Negative or not required by law. The above report was generated using voice recognition software. It may contain grammatical, syntax or spelling errors. Electronically signed by: Eyal Luna M.D. 09/23/2019 12:28 PM
--- NOTE | 2019-09-23 12:44 | Electrocardiogram Report ---
Test Reason : Blood Pressure : / mmHG Vent. Rate : 110 BPM Atrial Rate : 104 BPM P-R Int : 000 ms QRS Dur : 146 ms QT Int : 320 ms P-R-T Axes : 000 003 -27 degrees QTc Int : 433 ms Atrial fibrillation with rapid ventricular response with premature ventricular or aberrantly conducte d complexes Right bundle branch block Abnormal ECG When compared with ECG of 23-OCT-2018 18:28, No significant change was found Confirmed by Fabian Byrne ([id number]) on 09/23/2019 12:44:02 PM Referred By: Clovis Heredia Confirmed By:Fabian Byrne
[2019-09-23] MEDS ORDERED: DAPTOmycin 650 MG in SYRINGE 0 ML IV STA (13:08)
--- NOTE | 2019-09-23 13:24 | History & Physical Report ---
Date of Service September 23, 2019 Assessment & Plan (1) Cellulitis of left lower extremity: Patient presented with lower extremity pain swelling and some weakness. His leg is markedly enlarged and the pt states it usually is about the same as the right with trace swelling. He is previous he is a history with chronic venous stasis on the right and previous postphlebitic syndrome and previous cellulitis is. There is concern for infection given his marked leukocytosis. In the emergency department he is given cefepime and daptomycin these will be continued blood cultures are obtained given the degree of swelling will obtain CT abdomen and pelvis to eval for venous occlusion to left venous or lymphatic return , no obvious masses are felt on exam (2) Anticoagulated on Coumadin: Patient is super anticoagulated with an INR 4.2. He did have CT of his chest and a Doppler of his lower extremities which are negative but with his supratherapeutic state of his INR his Coumadin will be held at this time implying pharmacy management to help what watch for reinstitution of his anticoagulation (3) Hypertension: Patient is usually on metoprolol succinate every night at 100 mg this will be maintained (4) Chronic atrial fibrillation: Patient has a history of permanent atrial fibrillation rate controlled with metoprolol and anticoagulated with warfarin (5) Chronic kidney disease, stage III (moderate): Patient is acute kidney injury on chronic kidney disease stage III unclear reasoning will he was given fluid in the ER he will be given an additional liter of fluid over the next 24 hours and reassess his renal function in the morning he currently is without an anion gap although his bicarb is slightly depressed (6) Hypothyroidism: Pt will be maintained on synthroid (7) Thoracic aortic aneurysm: the pt was informed and is previously aware, did have minimal change since 2017, will recommend outpt surveilence (8) DVT prophylaxis: coumadin is used for this (9) Sleep apnea: Pt will be continued on cpap 4 cm water hs History of Present Illness Primary Care Provider: Clovis Heredia The patient is a 73-year-old male who has had around 5 days of left leg and foot swelling. The swelling started when he woke up in the morning -there was no trauma. 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 When he tries to walk on the left foot and ankle, the pain is a 9/10. Sitting still, the pain is a 2/10. Yesterday, he noticed a fever. The patient states that yesterday, he lost his balance and fell landing on his right shoulder. He has anterior right shoulder pain that is a 9/10 with any shoulder movement. He also has some bruising to the right lateral ribs. He is not short of breath. He denies losing consciousness or hitting his head. There is no neck pain or abdominal pain. He has not had urinary complaints, vomiting or diarrhea. The patient had any tauma or fractures ruled out by imaging and did not have an acute DVT, he is with significant leukocytosis and coagulopathy from coumadin His leg is markedly swollen and tender with chronic venous stasis changes Allergies Allergy/AdvReac Type Severity Reaction Status Date / Time hydrochlorothiazide Allergy Unknown "shut down Verified 09/23/19 11:30 kidneys" Home Medications Home Medications Medication Instructions Recorded Confirmed Type metoprolol succinate 100 mg PO QPM #0 08/07/16 09/23/19 History levothyroxine 137 mcg PO QAM 07/29/18 09/23/19 History allopurinol 300 mg tablet 300 mg PO QAM 01/02/19 09/23/19 History warfarin 5 mg tablet See Rx Instructions PO UD tab 04/21/19 09/23/19 History ciprofloxacin-dexamethasone 4 drp OTB BID 09/23/19 09/23/19 History Past Med/Surg History Family History Other Hearing loss No family history of adverse response to anesthesia No family history of bleeding disorder Denies family history of Heart disease Allergies Cancer Hypertension Stroke Asthma Social History Preferred Language: Syriac Communication Ability: Effective Chin Strap Maker Required: No Beliefs That Will Affect Care: Church Church Beliefs: Mosque marital status: Current Living Situation: Spouse current occupational status: retired Feels Safe at Home: Yes Smoking Status: Former smoker Tobacco Type: cigarettes ; packs per day: 1 ; Second Hand Exposure: No ; Hx Alcohol Use: Yes Alcohol type: beer, wine and hard liquor Alcohol Intake Frequency: Weekly Alcohol Intake Frequency Comment: 1 bottle of champagne / week Hx Substance Use: No Review of Systems Review of Systems: Mild to moderate distress and fatigue no headache, blurry or double vision no speech or swallowing issues no chest pain, pressure or palpitations no shortness of breath, cough or wheezes no abdominal pain, nausea or vomiting, diarrhea or constipation no dysuria, hematuria or frequency focal left leg and foot pain and marked no back pain, CVA tenderness or radicular pain redness and skin changes to both legs, L>R no focal signs of weakness or numbness or altered sensation no complaints or anxiety or depression Physical Exam Physical Exam: The patient appeared well nourished and normally developed, he is morbidly obese. Vital signs as documented. Head exam is normocephalic atraumatic no scleral icterus Neck is without JVD, thyromegaly, or carotid bruits. Lungs are clear to auscultation, no focal loss of breath sounds Cardiac exam, Rhythm is regular.. No murmurs, rubs or gallops. Abdominal exam reveals normal bowel sounds, soft non tender, no masses Extremities are asymmetric with the left leg being markedly enlarged, painful to touch, and with 2-3+ edema Neurologic exam is alert and oriented, no focal loss of strength or sensation Skin is with changes of chronic venous stasis changes Psychologically is without concerns for anxiety or depression Results & Data Results & Data ([facility]) Vital Signs (Past 12 Hours) Vital Signs Temp Pulse Resp BP Pulse Ox 09/23/19 12:39 111 H 22 116/77 09/23/19 09:58 98.4 F 103 H 20 98/[address] chest 09/23/2019 no acute posttraumatic intrathoracic abnormality no airspace consolidation pleural effusion or pneumothorax. Aneurysmal dilatation of the ascending aorta measuring up to 5 cm in diameter only modestly increased in size from 2017 no bony abnormalities cardiomegaly noted CT head 09/23/2019 no acute intracranial abnormality Venous Doppler 09/23/2019 chronic thrombophlebitis to left popliteal vein no evidence of DVT Ankle/foot x-ray 09/23/2019diffuse soft tissue edema without fracture arthritic changes are noted Shoulder x-ray 09/23/2019 PG Care Time/CCT Total # of Minutes Spent Total Time Spent with Patient: Total time spent is greater than 50% in coordination of care (as documented) at patient's floor/unit and/or counseling patient: Coding Level of Care Code 11637 Initial Inpt Care Lvl 3 Diagnoses Cellulitis of left lower extremity L03.116 Anticoagulated on Coumadin Z79.01 Hypertension I10 Chronic atrial fibrillation I48.2 Chronic kidney disease, stage III (moderate) N18.3 Hypothyroidism E03.9 Thoracic aortic aneurysm I71.2 DVT prophylaxis Z29.9 Sleep apnea G47.30
[2019-09-23] MEDS ORDERED: DAPTOMYCIN CONSULT ACTIVE PRN (14:31)
[2019-09-23] MEDS ORDERED: ACETAMINOPHEN 325 MG TAB PO PRN (14:31)
[2019-09-23] MEDS ORDERED: ONDANSETRON INJ 2 MG/ML 2 ML VIAL IV PRN (14:31)
[2019-09-23] MEDS ORDERED: ALUMINUM/MAGNESIUM SUSP 30 ML UDC PO PRN (14:31)
[2019-09-23] MEDS ORDERED: SODIUM CHLORIDE 0.9% 1000ML 1,000 ML IV SCH (14:50)
--- NOTE | 2019-09-23 18:34 | CT Scan Report ---
ABDOMEN AND PELVIS CT WITH ORAL CONTRAST CT DOSE: 1999.62 mGy.cm HISTORY: eval for venous obstruction L>R, or extrinsic compression of vessels. Leg swelling. TECHNIQUE: Multiaxial CT images of the abdomen and pelvis were performed following the use of oral co ntrast. A dose lowering technique was utilized adhering to the principles of ALARA. COMPARISON STUDY: Abdomen and pelvis CT 08/02/2018. FINDINGS: Mild dependent subsegmental bibasilar atelectasis. Calcified right hilar lymph nodes compat ible with prior granulomatous disease. No pneumatosis or pneumoperitoneum. The imaged inferior cardia c chambers are moderately enlarged with coronary arterial calcifications. Mildly contracted gallbladder. The unenhanced liver is unremarkable. Scattered calcified granulomata about the spleen is mildly enlarged at 13.9 cm. Pancreas and adrenal glands are unremarkable. No aort ic aneurysm. Tortuosity with mild to moderate calcified plaque about the aorta with moderate calcifie d plaque of the iliac arteries. No adenopathy. Mild to moderate bilateral perinephric stranding. Bilateral renal sinus cysts with multiple parenchym al cysts are redemonstrated. The largest cyst is again noted about the superior pole right kidney immanuel suring 11.0 x 13.1 cm. There is a 1.2 cm hyperdense lesion noted about the anterior interpolar right kidney which suggests a probable hemorrhagic or proteinaceous cyst. 7 mm calcification about the infe rior pole right kidney. Suggested proteinaceous or hemorrhagic cyst about the interpolar left kidney redemonstrated, 3.4 x 4.1 cm. Evaluation of the kidneys and renal lesions is limited without the use of IV contrast. Suggested cyst with peripheral 4 mm calcification is again noted about the inferior p ole left kidney measuring up to 4.5 cm. There are several nonobstructing calculi noted about the left kidney, largest of which measures 1.5 x 0.9 cm. No ureteral calculi or obstructive uropathy identifi ed. Mild wall thickening with partial distention of the urinary bladder. Prostamegaly. Small fat fill ed bilateral inguinal hernias. No bowel obstruction or focal bowel wall thickening identified. Terminal ileum is unremarkable. The a ppendix appears normal. Tiny fat filled periumbilical hernia. Soft tissues are unremarkable. Degenera tive changes of the spine, pelvis and hips. The IVC and iliac veins are normal and course and caliber. No extrinsic compression identified. Best seen on image 90 and 92 there is asymmetric thickening and increased density within one of the left a dductor/groin muscles. This measures 3.6 cm in thickness and favors a small intramuscular hematoma. T his has increased in size in the interval. Mildly distended gas and fluid-filled colon. This favors a mild ileus. IMPRESSION: 1. The IVC and iliac veins are normal in course and caliber. Asymmetric thickening and increased dens ity with one of the left adductor/groin muscles. This likely represents a small intramuscular hematom a. 2. Bilateral renal cysts are redemonstrated. Additionally, hyperdense lesions of the kidneys suggesti ve of proteinaceous or hemorrhagic cysts are again noted. 3. Nonobstructing left nephrolithiasis. No ureteral calculi or obstructive uropathy identified. 4. Prostamegaly with urinary bladder wall thickening suggestive of chronic bladder outlet obstruction . Correlate with urinalysis. 5. No bowel obstruction or focal bowel wall thickening. 6. Cardiomegaly with coronary arterial calcifications. 7. Prior granulomatous disease. 8. Additional findings as above. ACT 112: Negative or not required by law. Electronically signed by: Cooper Wolf M.D. 09/23/2019 6:32 PM
[2019-09-23] MEDS: METOPROLOL SUCC 50MG EXT REL TAB PO SCH (21:20)
[2019-09-23] MEDS: CIPRO 0.3%/DEXAMETHASONE 0.1% OTIC SUSP 7.5ML OTB SCH (21:21)
[2019-09-23] MEDS: CEFEPIME 2,000 MG in SYRINGE 7.5 ML IV SCH (23:30)
[2019-09-24] MEDS: LEVOTHYROXINE SODIUM 137 MCG TABLET PO SCH (05:39)
[2019-09-24 05:57] LABS: Appearance Urine Cloudy (Clear); Bilirubin Urine Negative (Negative); Blood Urine 2+ (Negative); Color Urine Amber; Glucose Urine UA Negative (Negative); Ketones Urine Trace (Negative); Leukocyte Esterase Urine Negative (Negative); Nitrite Urine Negative (Negative); Protein Urine 2+ (Negative); Specific Gravity Urine >= 1.030 (1.000-1.030); Urobilinogen Urine Negative (Negative)
[2019-09-24 06:07] LABS: Granular Casts Urine >30 /lpf (0)
[2019-09-24 06:08] LABS: Bacteria Urine 3+ (Negative)
[2019-09-24 06:10] LABS: Calcium Oxalate Crystals Urine Present (None Prsent)
[2019-09-24 06:12] LABS: Epithelial Cell Urine 20-30 /lpf (0-5)
[2019-09-24] MEDS: allopurinoL 300 MG TAB PO SCH (07:44)
[2019-09-24] MEDS: CIPRO 0.3%/DEXAMETHASONE 0.1% OTIC SUSP 7.5ML OTB SCH ×2 (07:44→21:20)
[2019-09-24 08:58] LABS: Prothrombin Time 55.7 Seconds (9.0-12.0)
[2019-09-24 09:02] LABS: BUN Creatinine Ratio 19.1 (10-20); Calcium 8.9 mg/dl (8.5-10.1); Creatinine Clr Calc Pharmacy 38.2 ml/min; Est GFR (African American) 26.1; Est GFR (Non-African American) 22.5
[2019-09-24 09:03] LABS: INR 5.8 (0.9-1.1)
[2019-09-24 11:00] LABS: Hematocrit (blood only) 44.2 % (42-52); Hemoglobin 15.4 g/dL (14.0-18.0); Mean Corpuscular Hemoglobin 31.5 pg (25-34); Mean Corpuscular Volume 90.4 fL (80-100); Mean Platelet Volume 12.3 fL (7.4-10.4); Platelet Count 211 K/uL (130-400); RDW Coefficient of Variation 15.8 % (11.5-14.5); RDW Standard Deviation 52.5 fL (36.4-46.3); Red Blood Count 4.89 M/uL (4.7-6.1); White Blood Count 23.34 K/uL (4.8-10.8)
[2019-09-24 11:12] LABS: Mean Corpuscular Hgb Conc 34.8 g/dL (32-36)
[2019-09-24 11:21] LABS: Basophils # (auto) 0.04 K/uL (0-0.2); Basophils % (auto) 0.2 %; Eosinophils # (auto) 0.04 K/uL (0-0.5); Eosinophils % (auto) 0.2 %; Immature Granulocytes # (auto) 0.56 K/uL (0.00-0.02); Immature Granulocytes % (auto) 2.4 %; Lymphocytes # (auto) 0.92 K/uL (1.2-3.4); Lymphocytes % (auto) 3.9 %; Monocytes # (auto) 0.99 K/uL (0.11-0.59); Monocytes % (auto) 4.2 %; Neutrophils # (auto) 20.79 K/uL (1.4-6.5); Neutrophils % (auto) 89.1 %; Toxic Vacuolation 1+
[2019-09-24] MEDS: CEFEPIME 2,000 MG in SYRINGE 7.5 ML IV SCH ×2 (12:38→23:37)
[2019-09-24] MEDS ORDERED: DAPTOmycin 450 MG in SYRINGE 0 ML IV SCH (13:00)
--- NOTE | 2019-09-24 17:11 | Hospitalist Progress Note ---
Date of Service September 24, 2019 Assessment & Plan (1) Left leg swelling: Mr. Rachel is a 73 yo gentleman who presented with acute worsening of his left lower extremity edema, found to have DALE on admission. Left leg swelling -- - patient reports history of chronic left LE (presumed venous stasis) - non-compliance with compression stockings - patient reports low activity level at home - LE doppler ruled out DVT on admission; history of Left LE DVT - CT -Ab showing no proximal vascular congestion - chronic venous stasis changes noted on b/l LE (2) Nonischemic cardiomyopathy: - patient had TTE in 02/2019 which showed global hypokinesis with a mildly reduced LV EF (51%), a severely dilated left atrium, normal pulmonary pressure, dilated RV with normal function. No significant change from study in 01/2018 - follows with [facility] Dr. Jennings (3) DALE (acute kidney injury): - baseline Cr ~2 - Cr elevated to 2.63 on admission; BUN 51, ratio 19 - patient reports not drinking enough fluids in preceding days - patient given 2 L of IVF - likely pre-renal - trend BMP (4) Leukocytosis: - WBC elevated to 29 on admission, down to 23 - concern for LE cellulitis and possible UTI - UA 3+ for bacteria on admission, urine culture pending - cellulitis unlikely to solely explain significant elevated in WBC - chart review reveals baseline WBC ~ 13 - blood cultures pending - started on IV Cefepime and Daptomycin in ED considering degree of leukocytosis. We will continue until blood and urine cultures are resulted (5) Cellulitis of left lower extremity: - confluent area of erythema concerning for cellulitis. WBC elevation much higher to be justified by this etiology. - continue IV Cefepime and Daptomycin (6) Chronic atrial fibrillation: - anticoagulated on coumadin - INR elevated to 5.2. - hold coumadin - PT/INR in AM - rate controlled with metoprolol succinate 100mg qPM (7) Chronic kidney disease, stage III (moderate): - baseline Cr ~2 (8) Hypothyroidism: - continue home dose levothyroxine (9) Gout: - continue home dose allopurinol DVT ppx: supratheraputic on coumadin Diet: Low sodium Dispo: Med/surg Code: Full Admission and Anticipated Discharge Date Admission Date: September 23, 2019 Supervising Physician Co-Signing Physician Notes Resident Physician Supervision Note: I independently interviewed and examined the patient and verified the peters history and physical, reviewed labs and image studies, discussed the case with the resident Dr. Morales and agree with the findings and care plan. Subjective Patient feeling comfortable, not much improvement in lower extremity edema. Used to wear compression stockings when he worked, has not been since he retired. Provides history that left LE has been swollen chronically for past 7 years, etiology of this has been unknown (no preceding trauma, vein stripping procedure, etc). Review of Systems Review of Systems: All systems reviewed & are unremarkable except as noted in HPI & below Physical Exam Constitutional: WD/WN, vitals as above + morbidly obese and cooperative Eyes: + anicteric sclerae ENMT: external ear and nose normal, oropharynx normal Neck: normal visual inspection and trachea midline Respiratory: normal respiratory effort, lungs clear to auscultation Cardiovascular: RRR, no murmur, no edema Heart Sounds: normal S1 and normal S2 Extremities: + pedal edema (L Le with tense pitting edema up to knee. ) Gastrointestinal (Abdomen): normal bowel sounds, soft, nontender, no hepatosplenomegaly Skin: + erythema (confluent area on L LE. No warmth. + tender) brawny dermatitis present on b/l lower extremities Psychiatric: A+Ox3, euthymic affect Results & Data Results & Data ([facility]) Vital Signs (Past 12 Hours) Vital Signs Temp Pulse Pulse Resp BP Pulse Ox 09/24/19 15:39 36.7 C 99 H 16 111/67 93 09/24/19 15:14 110 H 09/24/19 11:36 36.7 C 85 20 127/77 94 09/24/19 08:00 93 H 09/24/19 07:36 36.8 C 104 H 18 116/69 95 Resident Activity Tracking Resident Involvement: Resident Care Provided Care Provided: Adult Hospital Medicine (1) Leukocytosis Leukocytosis type: unspecified Qualified Code(s): D72.829 - Elevated white blood cell count, unspecified
[2019-09-24] MEDS: METOPROLOL SUCC 50MG EXT REL TAB PO SCH (21:20)
[2019-09-25] MEDS: LEVOTHYROXINE SODIUM 137 MCG TABLET PO SCH (05:41)
[2019-09-25 05:42] LABS: Hematocrit (blood only) 43.5 % (42-52); Hemoglobin 15.3 g/dL (14.0-18.0); Mean Corpuscular Hemoglobin 31.5 pg (25-34); Mean Corpuscular Hgb Conc 35.2 g/dL (32-36); Mean Corpuscular Volume 89.7 fL (80-100); Mean Platelet Volume 11.8 fL (7.4-10.4); Nucleated RBC # (auto) 0.02 K/uL (0-0); Nucleated RBC % (auto) 0.1 %; Platelet Count 234 K/uL (130-400); RDW Coefficient of Variation 15.8 % (11.5-14.5); RDW Standard Deviation 51.8 fL (36.4-46.3); Red Blood Count 4.85 M/uL (4.7-6.1); White Blood Count 23.03 K/uL (4.8-10.8)
[2019-09-25 05:59] LABS: BUN Creatinine Ratio 22.8 (10-20); Calcium 8.8 mg/dl (8.5-10.1); Creatinine Clr Calc Pharmacy 39.8 ml/min; Est GFR (African American) 27.5; Est GFR (Non-African American) 23.7; Potassium 3.8 mmol/L (3.5-5.1)
[2019-09-25 06:02] LABS: INR 5.2 (0.9-1.1)
[2019-09-25 06:23] LABS: Basophils # (auto) 0.06 K/uL (0-0.2); Basophils % (auto) 0.3 %; Eosinophils % (auto) 1.3 %; Immature Granulocytes # (auto) 1.34 K/uL (0.00-0.02); Immature Granulocytes % (auto) 5.8 %; Lymphocytes # (auto) 0.67 K/uL (1.2-3.4); Lymphocytes % (auto) 2.9 %; Monocytes # (auto) 0.78 K/uL (0.11-0.59); Monocytes % (auto) 3.4 %; Neutrophils # (auto) 19.88 K/uL (1.4-6.5); Neutrophils % (auto) 86.3 %; Toxic Granulation 1+
[2019-09-25] MEDS: CIPRO 0.3%/DEXAMETHASONE 0.1% OTIC SUSP 7.5ML OTB SCH (07:20)
[2019-09-25] MEDS: allopurinoL 300 MG TAB PO SCH (07:21)
[2019-09-25] MEDS ORDERED: cefTRIAXone SODIUM 2,000 MG in DEXTROSE 5% 50 ML IV SCH (12:00)
--- NOTE | 2019-09-25 13:03 | Discharge Summary ---
Date of Service September 25, 2019 Admission HPI Per Admitting Provider The patient is a 73-year-old male who has had around 5 days of left leg and foot swelling. The swelling started when he woke up in the morning 09/17- there was no trauma. 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 When he tries to walk on the left foot and ankle, the pain is a 9/10. Sitting still, the pain is a 2/10. Yesterday, he noticed a fever. The patient states that yesterday, he lost his balance and fell landing on his right shoulder. He has anterior right shoulder pain that is a 9/10 with any shoulder movement. He also has some bruising to the right lateral ribs. He is not short of breath. He denies losing consciousness or hitting his head. There is no neck pain or abdominal pain. He has not had urinary complaints, vomiting or diarrhea. The patient had any tauma or fractures ruled out by imaging and did not have an acute DVT, he is with significant leukocytosis and coagulopathy from coumadin His leg is markedly swollen and tender with chronic venous stasis changes Admission Exam Per Admitting Provider The patient appeared well nourished and normally developed, he is morbidly obese. Vital signs as documented. Head exam is normocephalic atraumatic no scleral icterus Neck is without JVD, thyromegaly, or carotid bruits. Lungs are clear to auscultation, no focal loss of breath sounds Cardiac exam, Rhythm is regular.. No murmurs, rubs or gallops. Abdominal exam reveals normal bowel sounds, soft non tender, no masses Extremities are asymmetric with the left leg being markedly enlarged, painful to touch, and with 2-3+ edema Neurologic exam is alert and oriented, no focal loss of strength or sensation Skin is with changes of chronic venous stasis changes Psychologically is without concerns for anxiety or depression Principal Diagnosis Cellulitis Discharge Exam Constitutional WD/WN, vitals as above + morbidly obese and cooperative Eyes + anicteric sclerae ENMT external ear and nose normal, oropharynx normal Neck normal visual inspection and trachea midline Respiratory normal respiratory effort, lungs clear to auscultation Cardiovascular RRR, no murmur, no edema Heart Sounds: normal S1 and normal S2 Extremities: + pedal edema (L Le with tense pitting edema up to knee. ) Gastrointestinal (Abdomen) normal bowel sounds, soft, nontender, no hepatosplenomegaly Skin + erythema (confluent area on L LE. No warmth. + tender) Psychiatric A+Ox3, euthymic affect Discharge Data Allergies Allergy/AdvReac Type Severity Reaction Status Date / Time hydrochlorothiazide Allergy Unknown "shut down Verified 09/23/19 11:30 kidneys" Consultations 09/23/19 13:16 ED Decision to Admit Stat Ordered Studies 09/23/19 11:07 CT chest wo con Stat CT head/brain wo con Stat 09/23/19 11:10 US venous doppler LE LT Stat 09/23/19 14:31 CT abd pelvis oral con only Routine Hospital Course (1) Left leg swelling: Mr. Rachel is a 73 yo gentleman who presented with acute worsening of his left lower extremity edema, found to have cellulitis and gram + bacteremia. Group B strep Bacteremia 2 of 2 blood cultures obtained on admission were positive for gram + streptococcus (pansensitive). Source of bacteremia presumed to be L LE cellulitis. Infection reached blood stream due to edema-induced skin integrity breakdown. Patient was advised to complete 10 day course of penicillin V at discharge. Cellulitis - confluent area of erythema concerning for cellulitis. WBC elevation much higher to be justified by this etiology. - continue penicillin V, 500mg, PO, QID for 10 days Leukocytosis - WBC elevated to 29 on admission, down to 23 by day of discharge - source thought to be L LE cellulitis and gram + bacteremia - UA 3+ for bacteria on admission, urine culture without growth - chart review reveals baseline WBC ~ 13 - 10 day course of Penicillin therapy as above Outpatient items to do: Repeat CBC in several weeks to recheck WBC Left leg swelling -- - patient reports history of chronic left LE (presumed venous stasis) - non-compliance with compression stockings - patient reports low activity level at home - LE doppler ruled out DVT on admission; history of Left LE DVT - CT -Ab showing no proximal vascular congestion - chronic venous stasis changes noted on b/l LE - the etiology of the acute worsening of chronic L LE edema was not elucidated at the time of discharge Outpatient items to do: Patient was encouraged to wear compression stockings during day, and prop feet up to the level of the heart at least 3 times daily. Consider referral to physical therapy for assistance with starting a daily exercise routine. Nonischemic Cardiomyopathy - patient had TTE in 02/2019 which showed global hypokinesis with a mildly reduced LV EF (51%), a severely dilated left atrium, normal pulmonary pressure, dilated RV with normal function. No significant change from study in 01/2018 - follows with [facility] Dr. Jennings DALE - baseline Cr ~2 - Cr elevated to 2.63 on admission; BUN 51, ratio 19 - trended down by discharge - patient reports not drinking enough fluids in preceding days - patient given 2 L of IVF - likely pre-renal Chronic A-Fib - anticoagulated on coumadin - INR elevated to 5.2 on day of discharge - hold coumadin - rate controlled with metoprolol succinate 100mg qPM Hypothyroidism - continue home dose levothyroxine Gout - continue home dose allopurinol (2) Nonischemic cardiomyopathy: (3) DALE (acute kidney injury): (4) Leukocytosis: (5) Cellulitis of left lower extremity: (6) Chronic atrial fibrillation: (7) Chronic kidney disease, stage III (moderate): (8) Hypothyroidism: (9) Gout: Total Time Total Time Spent Total Time Spent (In Minutes): see attending attestation Discharge Plan Discharge Items Patient Disposition: Home - Home Health Services Reason For Visit: CELLULITIS Discharge Diagnosis: cellulitis Condition on Discharge: Fair Activity: Resume your previous activity Non-emergency contact: Primary Care Provider Call non-emergency contact if: your symptoms worsen and you have a fever Follow-up/Referrals: Clovis Heredia [Primary Care Provider] - Diet: Heart Healthy Addtl Attending Provider Instructions: You were hospitalized at [facility] for left ankle swelling. The cause of your swelling is presumed to be from venous stasis, or pooling of blood in your veins. It is unclear as to what caused the acute worsening of your swelling. We recommend elevating your legs frequently throughout the day, and if possible, wearing compression stockings while you are awake. Do not wear compression stockings to bed. Walking will also help return blood from your veins to your heart. We recommend taking daily walks. You were found to have a cellulitis, or a skin infection of your left leg. We treated you with antibiotics while in the hospital. Please continue to take the antibiotic, Penicillin, 500mg, four times daily for 10 days after discharge. Be sure to have food in your stomach when taking the pills. You may want to eat a yogurt daily (or take a probiotic) to replace some of the healthy gut bacteria that get wiped out with antibiotic use. Your white blood cell count was elevated during your hospital stay. While this makes sense in the setting of an infection, the degree of elevation exceeds what would have been expected from a simple, cellulitis. We will ask your PCP to rep eat this level in several weeks time. Pending Studies at Discharge: No Stand-Alone Forms: My [facility], Smoking Cessation Medications and DC Order Prescriptions: New penicillin V potassium 500 mg tablet 500 mg PO Q6H 10 Days Qty: 40 RF: 0 Continued allopurinol 300 mg tablet 300 mg PO QAM RF: 0 warfarin 5 mg tablet See Rx Instructions PO UD RF: 0 metoprolol succinate 100 mg Tablet Extended Release 24 Hr 100 mg PO QPM Qty: 0 RF: 0 levothyroxine 137 mcg Tablet 137 mcg PO QAM RF: 0 ciprofloxacin-dexamethasone 0.3-0.1 % drops,suspension 4 drp OTB BID RF: 0 Discharge Orders: Discharge Order (Routine); Ordered 09/25/19 Ordered By: Katherine Morales Admission Data Admit Date/Time: 09/23/19 13:31 Attending Provider: Violeta Huertas Admit Provider: Percy Bates Primary Care Provider: Clovis Heredia Other Providers: Percy Bates ; [facility] Other Interventions: Discharge Summary Assessment (RN) Last Done: 09/25/19 13:31 DC Date/Time DO NOT enter until pt leaves facility: 09/25/19 14:50 Supervising Physician Co-Signing Physician Notes Resident Physician Supervision Note: I independently interviewed and examined the patient and verified the peters history and physical, reviewed labs and image studies, discussed the case with the resident Dr. Morales and agree with the findings and care plan. Resident Activity Tracking Resident Involvement: Resident Care Provided Care Provided: Adult Hospital Medicine
[2019-09-26] MEDS ORDERED: cefTRIAXone SODIUM 1,000 MG in DEXTROSE 5% 50 ML IV SCH (09:00)
--- NOTE | 2019-10-02 07:55 | Coding Query ---
CODING QUERY To promote full compliance with coding requirements relating to patient care, provider participation is requested in all cases of tableau administrator uncertainty. Please assist us with the question(s) below: Coding Question(s): 1. The ER documents Sepsis and the Discharge Summary documents Group B Strep Bacteremia with source presumed to be L LE Cellulitis. Due to conflicting documentation of Sepsis and Bacteremia, please clarify below, in your clinical opinion. ( ) Bacteremia ( x) Sepsis ( ) Other: Please Specify 2. There is documentation of possible UTI on Progress Note 09/24/19 and the Discharge Summary documents, "UA 3+ for bacteria on admission, urine culture without growth". Please specify below, in your clinical opinion, regarding UTI. ( ) Possible UTI was treated ( x) UTI was Ruled-Out ( ) Other: Please Specify 3. The ER documents, "Left leg ultrasound does not show any evidence for acute DVT, a chronic thrombus was seen" and the Discharge Summary documents, "LE doppler ruled out DVT on admission". Due to conflicting documentation, please clarify below, in your clinical opinion. ( x ) Chronic DVT Left Lower Extremity ( ) No DVT ( ) Other: Please Specify Physician's Response(s): Thank you Cindy Vieira Principal Diagnosis: "that condition established after study, to be chiefly responsible for occasioning the admission of the patient to the hospital for care." Co-Existing Principal Diagnosis: "when two or more diagnoses equally meet the criteria for principal diagnosis as determined by the circumstances of admission, diagnostic work up, and/or therapy provided, and the Alphabetic Index, Tabular List, or another coding guideline does not provide sequencing direction, any one of the diagnoses may be sequenced first." "When the physician has documented what appears to be a current diagnosis in the body of the record, but has not included the diagnosis in the final diagnostic statement, the physician should be asked whether the diagnosis should be added." (Source Coding Clinic 2 QTR90. p3-4) MARGUERITE
== END 2019-09-25 14:50 | disposition home health service (06) | DRG 872 ==
LOC: ED 09:55 → SUATTDRO 13:31 → 2W 13:31

== ENCOUNTER 2020-01-27 09:48 | Inpatient (IN) ==
[2020-01-27] MEDS ORDERED: ACETAMINOPHEN 325 MG TAB PO PRN (11:04)
[2020-01-27] MEDS ORDERED: CEFEPIME 2,000 MG in SYRINGE 0 ML IV SCH (12:32)
[2020-01-27] MEDS ORDERED: CEFEPIME 2,000 MG in SYRINGE 0 ML IV ONE (13:00)
[2020-01-27 13:26] LABS: Basophils # (auto) 0.02 K/uL (0-0.2); Basophils % (auto) 0.2 %; Eosinophils % (auto) 1.6 %; Hematocrit (blood only) 54.9 % (42-52); Hemoglobin 18.1 g/dL (14.0-18.0); Immature Granulocytes # (auto) 0.03 K/uL (0.00-0.02); Immature Granulocytes % (auto) 0.2 %; Lymphocytes % (auto) 7.9 %; Mean Corpuscular Hemoglobin 30.2 pg (25-34); Mean Corpuscular Volume 91.7 fL (80-100); Mean Platelet Volume 11.6 fL (7.4-10.4); Monocytes # (auto) 0.49 K/uL (0.11-0.59); Monocytes % (auto) 3.9 %; Neutrophils # (auto) 10.95 K/uL (1.4-6.5); Neutrophils % (auto) 86.2 %; Platelet Count 257 K/uL (130-400); RDW Coefficient of Variation 17.2 % (11.5-14.5); RDW Standard Deviation 58.3 fL (36.4-46.3); Red Blood Count 5.99 M/uL (4.7-6.1); White Blood Count 12.69 K/uL (4.8-10.8)
[2020-01-27 13:37] LABS: INR 2.6 (0.9-1.1)
[2020-01-27 13:46] LABS: Albumin Level 3.4 gm/dl (3.4-5.0); BUN Creatinine Ratio 21.3 (10-20); Creatinine Clr Calc Pharmacy 44.7 ml/min; Est GFR (African American) 32.4; Est GFR (Non-African American) 27.9; Potassium 4.6 mmol/L (3.5-5.1)
[2020-01-27 13:49] LABS: Albumin Globulin Ratio 0.7 (0.9-2); Bilirubin,Total 0.7 mg/dl (0.2-1); Globulin 5.2 gm/dl (2.5-4.0); Total Protein 8.6 gm/dl (6.4-8.2)
--- NOTE | 2020-01-27 14:03 | History & Physical Report ---
Date of Service January 27, 2020 Assessment & Plan (1) Cellulitis of left lower extremity: - In context of likely puncture wound of plantar forefoot. - Green film over puncture wound with surrounding uniform erythema of entire left foot. - Hemodynamically stable, afebrile, WBC 12.7 - XR L Foot showed soft tissue prominence of left forefoot but no osteomyelitis - Suspect cellulitis - exam findings highly suspicious for Pseudomonas - Cefepime 2g IV daily x7 days (renal dosing for weight-adjusted CrCl of 61mL/min) - 1st dose on 01/26 administered - PRN Tylenol for foot pain - follow blood cx x2 - routine wound care and wound consult - trend CBC daily (2) Chronic ulcer of left foot: - c/b left LE cellulitis - plan as above (3) Leukocytosis: - WBC 12.7 - trend CBC daily - follow blood cx (4) Left leg swelling: - left foot cellulitis with left venous stasis dermatitis - left foot significantly more swollen than right foot but no TTP calf or thigh and Ava's sign negative - non-blanching erythema of left foot - Bilat LE doppler on 10/29/2018 showed 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 but AUSTYN WNL bilaterally and no PAD on LE - repeat left LE doppler on 01/26: no hemodynamically significant stenosis in left LE - continue to follow clinically for changes (5) DALE (acute kidney injury): - Cr 2.22 on admission (baseline ~1.6-1.7) - BUN:Cr 21.3 - suspect pre-renal 2/2 dehydration - will start IVFs with LR 150cc/hr - trend BMP tomorrow AM and plan to back off IVFs if improved (6) Chronic kidney disease, stage III (moderate): - chronic: baseline Cr 1.6-17 - renal dosing of Cefepime as above (7) Chronic atrial fibrillation: - continue Toprol 100 mg PO QHS - continue Warfarin 5 mg PO QHS - INR therapeutic - 2.6 (8) Sleep apnea: - CPAP HS (9) Hypertension: - continue home Losartan 25 mg PO QAM and Toprol 100 mg PO QHS (10) Hypothyroidism: - continue home Levothyroxine 127 mcg PO QAM (11) Gout: - continue home Allopurinol 300 mg PO QAM Admission and Anticipated Discharge Date Admission Date: January 27, 2020 History of Present Illness Chief Complaint: left foot infection Primary Care Provider: Clovis Heredia Dieudonne Rachel is a 74 yo male with PMHx that includes chronic a-fib (on Warfarin 5 mg and Toprol 100 mg), h/o bilateral DVTs, Pre-diabetes (last A1C 5.6% in late 11/2019) and DERREK who presents to [facility] ED directly from his PCP this morning for a worsening left foot infection. Patient reports that he saw his PCP (Dr. Heredia) at [facility] 3 weeks ago and was found to have a small puncture wound on his left plantar foot. He was told to put a dressing on the wound but did not do so. Reports that 5 days ago his foot started to turn "bright red" and was leaking a brown-green fluid. Symptoms have progressed over the last 5 days and now he reports that the entire foot is red with copious dis charge. Also reports pain with ambulation but denies need for pain meds. Denies associated fever/chills, chest pain/palpitations, dizziness, SOB, N/V. Allergies Allergy/AdvReac Type Severity Reaction Status Date / Time hydrochlorothiazide Allergy Unknown "shut down Verified 01/27/20 11:06 kidneys" Home Medications Home Medications Medication Instructions Recorded Confirmed Type metoprolol succinate 100 mg PO DAILY@1999 #0 08/07/16 01/27/20 History levothyroxine 137 mcg PO QAM 07/29/18 01/27/20 History allopurinol 300 mg tablet 300 mg PO QAM 01/02/19 01/27/20 History cholecalciferol (vitamin D3) 25 2,000 unit PO QAM 12/19/19 01/27/20 History mcg (1,000 unit) capsule losartan 25 mg tablet 25 mg PO QAM 01/21/20 01/27/20 History warfarin 5 mg tablet See Rx Instructions PO UD tab 01/21/20 01/27/20 History Past Med/Surg History Medical History (Updated 11/05/19 @ 16:29 by Bina Zheng MD, PhD) Atrial fibrillation, chronic BPH (benign prostatic hyperplasia) Cellulitis of left anterior lower leg Chronic atrial fibrillation Chronic kidney disease, stage III (moderate) Chronic ulcer of left foot Gout Hearing deficit History of basal cell carcinoma Hypertension Hypothyroidism no longer on any meds Obesity On anticoagulant therapy Penile hypospadias Prediabetes Renal cyst Sleep apnea cpap Surgical History History of esophagogastroduodenoscopy (EGD) Family History Other Hearing loss No family history of adverse response to anesthesia No family history of bleeding disorder Denies family history of Heart disease Allergies Cancer Hypertension Stroke Asthma Social History Smoking Status: Former smoker packs per day: 1; Second Hand Exposure: No; Hx Alcohol Use: Yes Alcohol type: beer Alcohol Intake Frequency Comment: 1 bottle of champagne / week Hx Substance Use: No Preferred Language: Portuguese Communication Ability: Effective Floor Installation Mechanic Required: No Beliefs That Will Affect Care: None marital status: Current Living Situation: Spouse current occupational status: retired Feels Safe at Home: Yes Safety Concerns: Feels Safe At This Time Assistive Devices: Glasses Review of Systems Constitutional: no fever, no chills and no fatigue Eyes: no worsening vision Respiratory: no cough and no dyspnea Cardiovascular: no chest pain and no palpitations Gastrointestinal: no abdominal pain, no nausea, no vomiting and no diarrhea/loose stools Genitourinary: no dysuria Integumentary: + rash (chronic rash on both legs) Neurologic: no syncope Physical Exam Constitutional: WD/WN, vitals as above + obese Neck: trachea midline, no thyromegaly Respiratory: normal respiratory effort, lungs clear to auscultation Cardiovascular: Rate/Rhythm: + irregularly irregular Heart Sounds: normal S1 and normal S2; no murmur Gastrointestinal (Abdomen): normal bowel sounds, soft, nontender, no hepatosplenomegaly Skin: Bilateral venous stasis dermatitis up to proximal leg bilaterally - worse on left side. Left LE markedly more swollen then right up to thigh; serous drainage with pressure on left lower leg - no TTP of thigh or calf; Ava's side negative Uniformly erythematous left foot, non-blanching, small open wound on distal andrew ntar surface of left foot between 1st and 2nd digits with overlying green film. Mild tenderness to palpation of surrounding skin. No streaking or crepitus. Neurologic: patellar DTR's 2+ bilat, sensation intact (sensation intact in bilat LEs) Lymphatic: no cervical lymphadenopathy Results & Data Results & Data ([facility]) Vital Signs (Past 12 Hours) Vital Signs Temp Pulse Pulse Resp BP BP Pulse Ox 01/27/20 13:04 36.9 C 98 H 16 122/74 98 01/27/20 12:33 36.9 C 98 H 16 122/74 01/27/20 09:52 36.8 C 61 22 116/68 Code Status & VTE Plan Code Status Full Code VTE Prophylaxis Plan VTE Prophylaxis will be ordered: Yes Supervising Physician Co-Signing Physician Notes Attending attestation Pt seen and examined in concert with Dr. Lind. In agreement with the documented findings as noted in the resident documentation with any exceptions or additions as noted here. 74 y/o male h/o impaired fasting glucose, HTN, HLD, CKD III, atrial fibrillation presents with left lower extremity cellulitis Pt reports left foot pain with direct pressure or standing but little pain without direct pressure that was interfering with walking, coupled with significantly worsened weeping discharge of the proximal LLE. Relatively unchanged odour or coloration from the last 5 days, but more rubor than baseline. On examination, S1/S2 nl IRR/IRR c/w AF diagnosis. CTAB. Bilateral LE with devin ous stasis dermatitis with considerable worsening of erythema of the forefoot, both dorsal and plantar which is minimally blanching and TTP with 2+ pitting to the wood. Cellulitis of the LLE - concerning clinically for psuedomonas. Agree w/ cefepime and close monitoring. Trend CBC with mild elevation of WBC and f/u BCx. Imaging for further bony involvement. Wound care consultation appreciated. LE edema - venous stasis with excessive rubor, venous doppler and consider arterial evaluation DALE on CKD III - IVF with close monitoring of Cr and caution re: fluid overload. Likely to step down in AM. Chronic atrial fibrillation - continue metoprolol and warfarin. Trend INR Else see resident documentation as noted. Resident Activity Tracking Resident Involvement: Resident Care Provided Care Provided: Adult Hospital Medicine (1) Leukocytosis Leukocytosis type: unspecified Qualified Code(s): D72.829 - Elevated white blood cell count, unspecified
--- NOTE | 2020-01-27 14:27 | XRay Report ---
XR foot LT min 3V routine HISTORY: 74 years-old Male LLE Cellulitis acute soft tissue swelling of the left lower extremity COMPARISON: Left ankle radiographs 09/23/2019 TECHNIQUE: 3 views of the left foot FINDINGS: There is cortical thickening with mild apex lateral angulation of the mid diaphyseal third metatarsal suggestive of healed remote fracture deformity. 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 Large plantar enthesophyte of the calcan eus. There is diffuse soft tissue prominence, most pronounced within the dorsal forefoot. No acute fr acture, dislocation or opaque foreign body. IMPRESSION: 1. No acute fracture or dislocation. 2. Remote fracture deformity of the third metatarsal. 3. Moderate to marked diffuse soft tissue prominence. 4. Degenerative changes as above. ACT 112: Negative or not required by law. The above report was generated using voice recognition software. It may contain grammatical, syntax o r spelling errors. Electronically signed by: Rodríguez Castillo M.D. 01/27/2020 2:25 PM
--- NOTE | 2020-01-27 14:53 | Ultrasound Report ---
LEFT LOWER EXTREMITY ARTERIAL DOPPLER ULTRASOUND CLINICAL HISTORY: LLE cellulitis with non-blanching edema COMPARISON STUDY: Bilateral lower extremity arterial Doppler ultrasound October 25, 2018. FINDINGS: Ankle to brachial indices could not be obtained due to lower extremity edema and wounds. No elevated velocities were identified within the left lower extremity. Note is made of triphasic flow within the left common femoral and superficial femoral arteries. There is biphasic flow within the le ft popliteal, posterior tibial, peroneal and anterior tibial arteries with monophasic flow within the left dorsalis pedis. Flow within the left dorsalis pedis is dampened compared to exam of October 25 019. Vessels within the left lower extremity were patent. IMPRESSION: 1. Technically difficult exam given lower extremity edema and wounds. 2. No evidence for a hemodynamically significant stenosis within the left lower extremity. Biphasic a nd triphasic flow within the left lower extremity with the exception of monophasic flow within the le ft dorsalis pedis which represents a new finding since ultrasound of October 25, 2018. ACT 112: Negative or not required by law. Electronically signed by: Calvin Preciado M.D. 01/27/2020 2:51 PM
[2020-01-27] MEDS: LACTATED RINGER'S 1,000 ML IV SCH ×2 (15:12→21:36)
[2020-01-27] MEDS ORDERED: WARFARIN SOD 7.5 MG TAB PO SCH (16:00)
[2020-01-27] MEDS: METOPROLOL SUCC 50MG EXT REL TAB PO SCH (20:18)
[2020-01-28] MEDS: LACTATED RINGER'S 1,000 ML IV SCH ×2 (04:18→18:15)
[2020-01-28] MEDS: LEVOTHYROXINE SODIUM 137 MCG TABLET PO SCH (05:47)
[2020-01-28 06:50] LABS: Basophils # (auto) 0.02 K/uL (0-0.2); Basophils % (auto) 0.1 %; Eosinophils # (auto) 0.18 K/uL (0-0.5); Hematocrit (blood only) 47.9 % (42-52); Hemoglobin 15.8 g/dL (14.0-18.0); Immature Granulocytes # (auto) 0.06 K/uL (0.00-0.02); Immature Granulocytes % (auto) 0.3 %; Lymphocytes # (auto) 0.54 K/uL (1.2-3.4); Lymphocytes % (auto) 2.9 %; Mean Corpuscular Hemoglobin 30.1 pg (25-34); Mean Corpuscular Volume 91.2 fL (80-100); Mean Platelet Volume 11.6 fL (7.4-10.4); Monocytes # (auto) 0.58 K/uL (0.11-0.59); Monocytes % (auto) 3.1 %; Neutrophils # (auto) 17.15 K/uL (1.4-6.5); Neutrophils % (auto) 92.6 %; Platelet Count 214 K/uL (130-400); RDW Coefficient of Variation 17.2 % (11.5-14.5); RDW Standard Deviation 58.4 fL (36.4-46.3); Red Blood Count 5.25 M/uL (4.7-6.1); White Blood Count 18.53 K/uL (4.8-10.8)
[2020-01-28 06:58] LABS: INR 3.1 (0.9-1.1); Prothrombin Time 30.7 Seconds (9.0-12.0)
[2020-01-28 07:21] LABS: BUN Creatinine Ratio 20.5 (10-20); Calcium 8.2 mg/dl (8.5-10.1); Creatinine Clr Calc Pharmacy 39.8 ml/min; Est GFR (African American) 28.2; Est GFR (Non-African American) 24.3; Potassium 4.7 mmol/L (3.5-5.1)
--- NOTE | 2020-01-28 07:34 | Hospitalist Progress Note ---
Date of Service January 28, 2020 Assessment & Plan (1) Sepsis: Dieudonne Rachel is a 74 yo male with PMHx that includes chronic a-fib, h/o bilateral DVTs, Pre-diabetes and DERREK who was admitted to [facility] on 01/26 for LLE cellulitis --> progressed to sepsis on 01/27. - Febrile to 38.1C x1 overnight and mildly hypotensive and tachycardic despite mIVFs via LR 150cc/hr yesterday and overnight - WBC 12.7 --> 18.5 - change in VS and up-trending WBC suspicious for sepsis --> likely source is LLE cellulitis - blood cx no growth after 24 hrs - continue to follow - Cefepime broadened on 01/27 to Ciprofloxacin 400 mg IV BID and Zosyn 3.375g IV Q6H for double-coverage of Pseudomonas - trend CBC daily (2) Cellulitis of left lower extremity: - In context of likely puncture wound of plantar forefoot. - Green film over puncture wound with surrounding uniform erythema of entire left foot. - XR L Foot showed soft tissue prominence of left forefoot but no osteomyelitis - Suspect cellulitis - exam findings highly suspicious for Pseudomonas - broad IV abx coverage as above - PRN Tylenol for foot pain - routine wound care and wound consult (3) DALE (acute kidney injury): - Cr 2.22 on admission (baseline ~1.6-1.7) - Cr increased to 2.49 despite mIVFs with LR 150cc/hr, likely 2/2 sepsis - will continue IVFs with LR 150cc/hr - treat sepsis as above - trend BMP (4) Chronic ulcer of left foot: - c/b left LE cellulitis - plan as above (5) Leukocytosis: - WBC 12.7 --> 18.5 (01/27) - trend CBC daily - follow blood cx as above (6) Left leg swelling: - left foot cellulitis with left venous stasis dermatitis - left foot significantly more swollen than right foot but no TTP calf or thigh and Ava's sign negative - non-blanching erythema of left foot - Bilat LE doppler on 10/29/2018 showed 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 but AUSTYN WNL bilaterally and no PAD on LE - repeat left LE doppler on 01/26: no hemodynamically significant stenosis in left LE - continue to follow clinically for changes (7) Chronic kidney disease, stage III (moderate): - chronic: baseline Cr 1.6-17 (8) Chronic atrial fibrillation: - continue Toprol 100 mg PO QHS - continue Warfarin 5 mg PO QHS - INR therapeutic - 2.6 (9) Sleep apnea: - CPAP HS (10) Hypertension: - continue home Losartan 25 mg PO QAM and Toprol 100 mg PO QHS (11) Hypothyroidism: - continue home Levothyroxine 127 mcg PO QAM (12) Gout: - continue home Allopurinol 300 mg PO QAM Admission and Anticipated Discharge Date Admission Date: January 27, 2020 Supervising Physician Co-Signing Physician Notes Attending attestation Pt seen and examined in concert with Dr. Lind. In agreement with the documented findings as noted in the resident documentation with any exceptions or additions as noted here. 74 y/o male h/o impaired fasting glucose, HTN, HLD, CKD III, atrial fibrillation presents with left lower extremity cellulitis Overnight, febrile to 38.1C with soft BP. Presently, feeling stable from yesterday with mild aching pain of the left dorsum with ambulation to restroom without other complaint. On examination, S1/S2 nl IRR/IRR. CTAB. Bilateral LE with venous stasis dermatitis, ruborous erythema of the foot circumferentially, both dorsal and plantar which is minimally blanching and TTP with 2+ pitting to the wood. See wound care image. XR with soft tissue prominence without overt bony involvement Sepsis, cellulitis of the LLE likely source - broaden abx to Zosyn, no risk for MRSA. Wound Cx, BCx. Trend CBC. Consider MRI foot based on response to therapy. DALE on CKD III - increase in Cr likely 2/2 febrile w/ decrease BP - continue IVF, monitor pressure and bolus PRN. IV abx as above. LE edema - venous stasis with excessive rubor with overlying infection on the LLE Chronic atrial fibrillation - continue metoprolol and warfarin. Trend INR Else see resident documentation as noted. Subjective NAEO. Febrile to 38.1C - received Tylenol x1 and has been afebrile since. Also mildly hypotensive and tachycardic overnight and into the morning. Patient reports doing well today and is stable since admission. Reports stable mild pain with ambulation. Eating well and voiding spontaneously. Denies fever/chills, dizziness/lightheadedness, chest pain/palpitations, SOB, N/V. Review of Systems Review of Systems: Pertinent positives and negatives mentioned in HPI Physical Exam Constitutional: WD/WN, vitals as above + obese Respiratory: normal respiratory effort, lungs clear to auscultation Cardiovascular: Rate/Rhythm: + irregularly irregular Heart Sounds: normal S1 and normal S2; no murmur Gastrointestinal (Abdomen): normal bowel sounds, soft, nontender, no hepatosplenomegaly Skin: Bilateral venous stasis dermatitis up to proximal leg bilaterally - worse on left side. Left LE markedly more swollen then right up to thigh; serous drainage with pressure on left lower leg - no TTP of thigh or calf; Ava's side negative Uniformly erythematous left foot, non-blanching, small open wound on distal plantar surface of left foot between 1st and 2nd digits with overlying green film. Mild tenderness to palpation of surrounding skin. No streaking or crepitus. Results & Data Results & Data ([facility]) Vital Signs (Past 12 Hours) Vital Signs Temp Pulse Pulse Resp BP Pulse Ox 01/28/20 07:15 36.7 C 93 H 18 99/65 L 94 01/28/20 00:25 37.1 C 01/27/20 23:51 95 H 22 94 01/27/20 23:05 38.1 C H 86 20 97/57 L 94 01/27/20 20:16 90 103/68 98 Resident Activity Tracking Resident Involvement: Resident Care Provided Care Provided: Adult Hospital Medicine (1) Leukocytosis Leukocytosis type: unspecified Qualified Code(s): D72.829 - Elevated white blood cell count, unspecified (2) Sepsis Acute renal failure type: unspecified Sepsis acute organ dysfunction status: with acute organ dysfunction Sepsis type: sepsis due to unspecified organism Severe sepsis acute organ dysfunction type: acute renal failure Severe sepsis shock status: without septic shock Qualified Code(s): A41.9 - Sepsis, unspec ified organism; R65.20 - Severe sepsis without septic shock; N17.9 - Acute kidney failure, unspecified
[2020-01-28] MEDS: allopurinoL 300 MG TAB PO SCH (07:49)
[2020-01-28] MEDS: LOSARTAN POTASSIUM 25 MG TAB PO SCH (07:49)
[2020-01-28] MEDS ORDERED: PIPERACILL/TAZOBAC CONSULT ACTIVE PRN (11:10)
[2020-01-28] MEDS ORDERED: PIPERACILLIN/TAZOBACTAM 4.5 GM in DEXTROSE 5% 100 ML IV SCH (11:15)
[2020-01-28] MEDS ORDERED: PIPERACILLIN/TAZOBACTAM 4.5 GM in DEXTROSE 5% 100 ML IV ONE (12:15)
[2020-01-28] MEDS ORDERED: CEFEPIME 2,000 MG in SYRINGE 0 ML IV SCH (13:00)
[2020-01-28] MEDS: WARFARIN SOD 5 MG TAB PO SCH (15:22)
[2020-01-28] MEDS: CIPROFLOXACIN / D5W 400 MG/200 ML BAG IV SCH (15:22)
[2020-01-28] MEDS: PIPERACILLIN/TAZOBACTAM 3.375 GM in DEXTROSE 5% 100 ML IV SCH (17:38)
[2020-01-28] MEDS: METOPROLOL SUCC 50MG EXT REL TAB PO SCH (21:15)
[2020-01-29] MEDS: PIPERACILLIN/TAZOBACTAM 3.375 GM in DEXTROSE 5% 100 ML IV SCH ×5 (00:31→23:43)
[2020-01-29] MEDS: CIPROFLOXACIN / D5W 400 MG/200 ML BAG IV SCH ×2 (01:59→13:03)
[2020-01-29] MEDS: LACTATED RINGER'S 1,000 ML IV SCH ×3 (02:15→21:44)
[2020-01-29] MEDS: LEVOTHYROXINE SODIUM 137 MCG TABLET PO SCH (06:06)
[2020-01-29 07:11] LABS: Basophils # (auto) 0.02 K/uL (0-0.2); Basophils % (auto) 0.2 %; Eosinophils # (auto) 0.63 K/uL (0-0.5); Eosinophils % (auto) 5.7 %; Hematocrit (blood only) 44.1 % (42-52); Hemoglobin 14.7 g/dL (14.0-18.0); Immature Granulocytes # (auto) 0.05 K/uL (0.00-0.02); Immature Granulocytes % (auto) 0.5 %; Lymphocytes # (auto) 0.97 K/uL (1.2-3.4); Lymphocytes % (auto) 8.7 %; Mean Corpuscular Hemoglobin 30.4 pg (25-34); Mean Corpuscular Hgb Conc 33.3 g/dL (32-36); Mean Corpuscular Volume 91.1 fL (80-100); Mean Platelet Volume 11.1 fL (7.4-10.4); Monocytes # (auto) 0.49 K/uL (0.11-0.59); Monocytes % (auto) 4.4 %; Neutrophils # (auto) 8.95 K/uL (1.4-6.5); Neutrophils % (auto) 80.5 %; Platelet Count 178 K/uL (130-400); RDW Coefficient of Variation 17.2 % (11.5-14.5); RDW Standard Deviation 57.9 fL (36.4-46.3); Red Blood Count 4.84 M/uL (4.7-6.1); White Blood Count 11.11 K/uL (4.8-10.8)
[2020-01-29 07:27] LABS: INR 2.7 (0.9-1.1); Prothrombin Time 26.6 Seconds (9.0-12.0)
--- NOTE | 2020-01-29 07:28 | Hospitalist Progress Note ---
Date of Service January 29, 2020 Assessment & Plan (1) Sepsis: Dieudonne Rachel is a 74 yo male with PMHx that includes chronic a-fib, h/o bilateral DVTs, Pre-diabetes and DERREK who was admitted to [facility] on 01/26 for LLE cellulitis --> progressed to sepsis on 01/27. - most likely source is LLE cellulitis - VS improved as of this afternoon: normotensive and not tachycardic - WBC 12.7 (01/26) --> 18.5 (01/27) --> downtrending to 11.1 today - Continue Ciprofloxacin 400 mg IV BID and Zosyn 3.375g IV Q6H for double- coverage of Pseudomonas --> transition to PO tomorrow if status continues to improve - blood cx no growth after 48 hrs - trend CBC daily - weaned IVFs to LR @80cc/hr; d/c tomorrow if continues to improve - monitor clinically for signs of hypervolemia (2) Cellulitis of left lower extremity: - In context of likely puncture wound of plantar forefoot. - XR L Foot showed soft tissue prominence of left forefoot but no osteomyelitis - MRI L foot w/o contrast on 01/28 confirms no osteo or abscess - Suspect cellulitis- exam findings highly suspicious for Pseudomonas - appears improved today per wound care pictures - continue IV abx double coverage for Pseudomonas as above - PRN Tylenol for foot pain - routine wound care and wound consult (3) DALE (acute kidney injury): - Cr 2.22 on admission (baseline ~1.6-1.7) - suspect pre-renal kidney injury 2/2 sepsis - Cr 2.49 --> 2.26 today - will cautiously continue IVFs as mentioned above - treat sepsis as above - trend BMP (4) Chronic ulcer of left foot: - c/b left LE cellulitis - plan as above (5) Leukocytosis: - improving on IV abx: WBC 18.5 (01/27) --> 11.1 (01/28) - trend CBC daily (6) Left leg swelling: - bilateral venous stasis dermatitis, worse on left - LLE arterial doppler (01/26): no hemodynamically significant stenosis in left LE - mildly improved today; continue to follow clinically for changes (7) Chronic kidney disease, stage III (moderate): - chronic: baseline Cr 1.6-17 (8) Chronic atrial fibrillation: - continue Toprol 100 mg PO QHS - continue Warfarin 5 mg PO QHS - INR therapeutic - 2.7 (9) Sleep apnea: - CPAP HS (10) Hypertension: - continue home Losartan 25 mg PO QAM and Toprol 100 mg PO QHS (11) Hypothyroidism: - continue home Levothyroxine 127 mcg PO QAM (12) Gout: - continue home Allopurinol 300 mg PO QAM FEN/GI: Heart Healthy, DM2 DVT Prophylaxis: Warfarin 7.5 mg PO daily Code Status: Full code Disposition: med/surg, tentative d/c [facility] Admission and Anticipated Discharge Date Admission Date: January 28, 2020 Supervising Physician Co-Signing Physician Notes Attending attestation Pt seen and examined in concert with Dr. Lidn. In agreement with the documented findings as noted in the resident documentation with any exceptions or additions as noted here. 74 y/o male h/o impaired fasting glucose, HTN, HLD, CKD III, atrial fibrillation presents with left lower extremity cellulitis Minimal pain of the left lower extremity mostly with ambulation without any fever or sensory changes. On examination, S1/S2 nl IRR/IRR. CTAB. Bilateral LE with venous stasis dermatitis, improved erythema of the left foot circumferentially, both dorsal and plantar which is minimally blanching and TTP with 2+ pitting to the wood. See wound care images. MRI without osteomyelitis or fluid collection Sepsis, cellulitis of the LLE likely source - continue to Zosyn, no risk for MRSA. Wound Cx, BCx pending. WBC downtrending. DALE on CKD III - increase in Cr likely 2/2 febrile w/ decrease BP - taper IVF to avoid overload as pressure improved. IV abx as above. LE edema - venous stasis with excessive rubor with overlying infection on the LLE, stable from previous Chronic atrial fibrillation - continue metoprolol and warfarin. Trend INR Else see resident documentation as noted. Subjective NAEO. Continues to be mildly hypotensive and borderline tachycardic overnight and into the morning. Patient reports doing well today and is stable since admission. Reports stable mild pain with ambulation. Eating well and voiding spontaneously. Denies fever/chills, dizziness/lightheadedness, chest pain/palpitations, SOB, N/V. Review of Systems Review of Systems: Pertinent positives and negatives mentioned in HPI Physical Exam Constitutional: WD/WN, vitals as above + obese Neck: trachea midline, no thyromegaly Respiratory: normal respiratory effort, lungs clear to auscultation Cardiovascular: Rate/Rhythm: + irregularly irregular Heart Sounds: normal S1 and normal S2; no murmur Gastrointestinal (Abdomen): normal bowel sounds, soft, nontender, no hepatosplenomegaly Neurologic: patellar DTR's 2+ bilat, sensation intact (sensation intact in bilat LEs) Lymphatic: no cervical lymphadenopathy Results & Data Results & Data ([facility]) Vital Signs (Past 12 Hours) Vital Signs Temp Pulse Pulse Resp BP Pulse Ox 01/29/20 07:23 36.6 C 87 18 99/58 L 95 01/28/20 23:10 36.6 C 79 20 99/61 L 99 01/28/20 21:14 72 99/64 L Resident Activity Tracking Resident Involvement: Resident Care Provided Care Provided: Adult Hospital Medicine (1) Leukocytosis Leukocytosis type: unspecified Qualified Code(s): D72.829 - Elevated white blood cell count, unspecified (2) Sepsis Acute renal failure type: unspecified Sepsis acute organ dysfunction status: with acute organ dysfunction Sepsis type: sepsis due to unspecified organism Severe sepsis acute organ dysfunction type: acute renal failure Severe sepsis shock status: without septic shock Qualified Code(s): A41.9 - Sepsis, unspecified organism; R65.20 - Severe sepsis without septic shock; N17.9 - Acute kidney failure, unspecified
[2020-01-29 07:45] LABS: Calcium 8.4 mg/dl (8.5-10.1); Creatinine Clr Calc Pharmacy 43.9 ml/min; Est GFR (African American) 31.7; Est GFR (Non-African American) 27.4; Potassium 4.3 mmol/L (3.5-5.1)
[2020-01-29] MEDS: LOSARTAN POTASSIUM 25 MG TAB PO SCH (09:02)
[2020-01-29] MEDS: allopurinoL 300 MG TAB PO SCH (09:02)
--- NOTE | 2020-01-29 12:44 | Magnetic Resonance Report ---
MRI OF THE LEFT FOOT WITHOUT CONTRAST CLINICAL HISTORY: LLE cellulitis, r/o osteomyelitis COMPARISON STUDY: CT of the left lower extremity August 08, 2016. Left foot radiographs January 26 0. TECHNIQUE: Utilizing a 1.5 [place]neka magnet and dedicated coil, multiplanar, multiecho imaging of the lef t forefoot and midfoot was performed without intravenous contrast. FINDINGS: Alignment of the tarsometatarsal joints is anatomic. There is severe joint space narrowing within multiple articulations of the left midfoot. Subchondral cystic change is degenerative. There i s no marrow edema within the left forefoot to suggest osteomyelitis. There is no bony destruction. An old, healed fracture of the left fourth metatarsal is noted. No acute fracture is present. Note is m terri of marked dorsal forefoot subcutaneous edema. There is no fluid collection to suggest an abscess on this unenhanced exam. No mass is noted. Visualized portions of the flexor and extensor tendons are intact. IMPRESSION: 1. No evidence of osteomyelitis within the left forefoot. 2. Marked subcutaneous edema of the left forefoot suggestive of cellulitis. No fluid collection ident ified on this unenhanced exam to suggest abscess. 3. Severe osteoarthritis within multiple midfoot articulations. ACT 112: Negative or not required by law. Electronically signed by: Calvin Preciado M.D. 01/29/2020 12:42 PM
[2020-01-29] MEDS: WARFARIN SOD 5 MG TAB PO SCH (16:00)
[2020-01-29] MEDS: METOPROLOL SUCC 50MG EXT REL TAB PO SCH (20:53)
[2020-01-30] MEDS: CIPROFLOXACIN / D5W 400 MG/200 ML BAG IV SCH (01:34)
[2020-01-30] MEDS: LEVOTHYROXINE SODIUM 137 MCG TABLET PO SCH (05:17)
[2020-01-30] MEDS: PIPERACILLIN/TAZOBACTAM 3.375 GM in DEXTROSE 5% 100 ML IV SCH ×2 (05:18→13:08)
[2020-01-30 06:30] LABS: Basophils # (auto) 0.02 K/uL (0-0.2); Basophils % (auto) 0.3 %; Eosinophils # (auto) 0.52 K/uL (0-0.5); Eosinophils % (auto) 6.6 %; Hematocrit (blood only) 43.7 % (42-52); Hemoglobin 14.5 g/dL (14.0-18.0); Immature Granulocytes # (auto) 0.03 K/uL (0.00-0.02); Immature Granulocytes % (auto) 0.4 %; Lymphocytes % (auto) 8.9 %; Mean Corpuscular Hemoglobin 30.4 pg (25-34); Mean Corpuscular Hgb Conc 33.2 g/dL (32-36); Mean Corpuscular Volume 91.6 fL (80-100); Mean Platelet Volume 11.1 fL (7.4-10.4); Monocytes # (auto) 0.41 K/uL (0.11-0.59); Monocytes % (auto) 5.2 %; Neutrophils # (auto) 6.21 K/uL (1.4-6.5); Neutrophils % (auto) 78.6 %; Platelet Count 213 K/uL (130-400); RDW Coefficient of Variation 17.3 % (11.5-14.5); RDW Standard Deviation 58.8 fL (36.4-46.3); Red Blood Count 4.77 M/uL (4.7-6.1); White Blood Count 7.89 K/uL (4.8-10.8)
[2020-01-30 06:41] LABS: INR 2.3 (0.9-1.1); Prothrombin Time 23.4 Seconds (9.0-12.0)
[2020-01-30 07:06] LABS: BUN Creatinine Ratio 20.2 (10-20); Calcium 8.2 mg/dl (8.5-10.1); Creatinine Clr Calc Pharmacy 51.4 ml/min; Est GFR (African American) 38.4; Est GFR (Non-African American) 33.1; Potassium 4.7 mmol/L (3.5-5.1)
--- NOTE | 2020-01-30 07:21 | Discharge Summary ---
Date of Service January 30, 2020 Admission HPI Per Admitting Provider Dieudonne Rachel is a 74 yo male with PMHx that includes chronic a-fib (on Warfarin 5 mg and Toprol 100 mg), h/o bilateral DVTs, Pre-diabetes (last A1C 5.6% in late 11/2019) and DERREK who presents to [facility] ED directly from his PCP this morning for a worsening left foot infection. Patient reports that he saw his PCP (Dr. Heredia) at [facility] 3 weeks ago and was found to have a small puncture wound on his left plantar foot. He was told to put a dressing on the wound but did not do so. Reports that 5 days ago his foot started to turn "bright red" and was leaking a brown-green fluid. Symptoms have progressed over the last 5 days and now he reports that the entire foot is red with copious discharge. Also reports pain with ambulation but denies need for pain meds. Denies associated fever/chills, chest pain/palpitations, dizziness, SOB, N/V. Admission Exam Per Admitting Provider Constitutional: WD/WN, vitals as above + obese Neck: trachea midline, no thyromegaly Respiratory: normal respiratory effort, lungs clear to auscultation Cardiovascular: Rate/Rhythm: + irregularly irregular Heart Sounds: normal S1 and normal S2; no murmur Gastrointestinal (Abdomen): normal bowel sounds, soft, nontender, no hepatosplenomegaly Skin: Bilateral venous stasis dermatitis up to proximal leg bilaterally - worse on left side. Left LE markedly more swollen then right up to thigh; serous drainage with pressure on left lower leg - no TTP of thigh or calf; Ava's side negative Uniformly erythematous left foot, non-blanching, small open wound on distal plantar surface of left foot between 1st and 2nd digits with overlying green film. Mild tenderness to palpation of surrounding skin. No streaking or crepitus. Neurologic: patellar DTR's 2+ bilat, sensation intact (sensation intact in bilat LEs) Lymphatic: no cervical lymphadenopathy Principal Diagnosis Left LE Cellulitis Discharge Exam Constitutional WD/WN, vitals as above + obese Respiratory normal respiratory effort, lungs clear to auscultation Cardiovascular Rate/Rhythm: + irregularly irregular Heart Sounds: normal S1 and normal S2; no murmur Gastrointestinal (Abdomen) normal bowel sounds, soft, nontender, no hepatosplenomegaly Skin bilateral venous stasis dermatitis stable on the right but mildly improved on the left Discharge Data Allergies Allergy/AdvReac Type Severity Reaction Status Date / Time hydrochlorothiazide Allergy Unknown "shut down Verified 01/27/20 11:06 kidneys" Consultations 01/27/20 11:08 Consult Case Management - Discharge Planning Routine Ordered Studies 01/27/20 13:57 US arterial duplex LE LT Stat 01/29/20 09:53 MR foot LT w/o con Urgent Hospital Course (1) Sepsis: Dieudonne Rachel is a 74 yo male with PMHx that includes chronic a-fib, h/o bilateral DVTs, Pre-diabetes and DERREK who was admitted to [facility] on 01/26 for LLE cellulitis --> progressed to sepsis on 01/27. Improved on IV Cipro/Zosyn and was discharged on 01/29 in good condition, hemodynamically stable, to take Augmentin x7 days and Ciprofloxacin x10 days. - most likely source is LLE cellulitis - suspected Pseudomonas based on green film and foul odor on exam, as well as previous Pseudomonas wound infections - IV Cefepime --> IV Cipro/Zosyn on 01/27 due to worsening VS and febrile to 38.1 - blood cx no growth after 48 hrs - VS improved as of 01/28 - WBC 12.7 (01/26) --> 18.5 (01/27) --> 11.1 today --> 7.9 on 01/29 - Ciprofloxacin 400 mg PO BID x10 days and Augmentin 875/125mg PO BID x7 days after discharge - follow up with wound clinic and PCP (2) Cellulitis of left lower extremity: - In context of likely puncture wound of plantar forefoot. - XR L Foot showed soft tissue prominence of left forefoot but no osteomyelitis - MRI L foot w/o contrast on 01/28 confirms no osteo or abscess - Suspect cellulitis- exam findings highly suspicious for Pseudomonas - improved throughout hospitalization - received orthotic boot for ambulation and set up with [facility] home health services after discharge (3) DALE (acute kidney injury): - Cr 2.22 on admission (baseline ~1.6-1.7) - suspect pre-renal kidney injury 2/2 sepsis - Cr 2.49 --> 2.26 --> 1.93 on 01/29 - follow up with PCP as above (4) Chronic ulcer of left foot: - c/b left LE cellulitis - plan as above (5) Left leg swelling: - bilateral venous stasis dermatitis, worse on left - LLE arterial doppler (01/26): no hemodynamically significant stenosis in left LE (6) Chronic kidney disease, stage III (moderate): - chronic: baseline Cr 1.6-17 (7) Chronic atrial fibrillation: - continue Toprol 100 mg PO QHS - continue Warfarin 5 mg PO QHS - INR therapeutic - 2.7 (8) Sleep apnea: - CPAP HS (9) Hypertension: - continue home Losartan 25 mg PO QAM and Toprol 100 mg PO QHS (10) Hypothyroidism: - continue home Levothyroxine 127 mcg PO QAM (11) Gout: - continue home Allopurinol 300 mg PO QAM Total Time Total Time Spent Total Time Spent (In Minutes): 30 minutes Total Time Includes: Examination of the Patient, Discharge Planning and Medication Reconciliation Discharge Plan Discharge Items Patient Disposition: Home - Home Health Services Reason For Visit: LEFT LE CELLULITIS Discharge Diagnosis: LLE Cellulitis Activity: Per Instructions section Non-emergency contact: Primary Care Provider Call non-emergency contact if: you have any medication questions, your pain is not controlled and you have a fever Follow-up/Referrals: Clovis Heredia [Primary Care Provider] - 02/02/20 3:10 pm Kelvin Palacios DO [Physician] - 02/03/20 8:00 am Diet: Carb Consistent or DM2 and Heart Healthy Addtl Attending Provider Instructions: You were admitted to [facility] on 01/27/2020 for a skin infection of your left foot, called cellulitis. You were started on an IV antibiotic called Cefepime as well as IV fluids. You also had an X-ray and MRI of your left foot which showed no signs of deeper infection. On 01/27 your blood pressure was a little low and your heart rate was a little high, and we were concerned that your foot infection was spreading to your blood. Your antibiotics were advanced to two IV antibiotics (Zosyn and Cefepime). You improved on the IV fluids and antibiotics, and your left foot started to look better. Your IV fl uids were stopped on 01/29 and you were switched to oral antibiotics on 01/29. You will be discharged on 01/30/2020 in improved, stable condition. You should continue to take the Augmentin antibiotic twice a day for a total of 7 day. You should continue to take the Ciprofloxacin antibiotic twice a day for a total of 10 days. You were set up for a surgical boot and you should wear this regularly to ensure improvement in your foot. Home health services were also arranged for you. You should follow up with the wound care clinic early next week, and you should also follow up closely with your PCP. You should continue to take all of your home medications as prescribed. Pending Studies at Discharge: No Stand-Alone Forms: My [facility], Smoking Cessation Medications and DC Order Prescriptions: New ciprofloxacin HCl 500 mg tablet 500 mg PO BID Qty: 20 RF: 0 amoxicillin-pot clavulanate [Augmentin] 875-125 mg tablet 1 tab PO BID Qty: 14 RF: 0 Continued allopurinol 300 mg tablet 300 mg PO QAM RF: 0 cholecalciferol (vitamin D3) 25 mcg (1,000 unit) capsule 2,000 unit PO QAM RF: 0 losartan 25 mg tablet 25 mg PO QAM RF: 0 warfarin 5 mg tablet See Rx Instructions PO UD RF: 0 metoprolol succinate 100 mg Tablet Extended Release 24 Hr 100 mg PO DAILY@2000 Qty: 0 RF: 0 levothyroxine 137 mcg Tablet 137 mcg PO QAM RF: 0 Discharge Orders: Discharge Order (Routine); Ordered 01/30/20 Ordered By: David Lind Admission Data Admit Date/Time: 01/28/20 11:20 Attending Provider: Niko Lindsay Admit Provider: David Lind Primary Care Provider: Clovis Heredia Other Providers: [facility],Home Health Other Interventions: Discharge Summary Assessment (RN) Last Done: 01/30/20 13:49 Supervising Physician Co-Signing Physician Notes I also saw the patient with the resident physician and confirmed peters portions of the history and physical examination. The patient is resting company without complaints. Wound care has seen the patient and left instructions for home care as well as outpatient wound care center follow-up. He is hemodynamically stable. Afebrile. Blood cultures from 01/27/2020 demonstrate no growth. MRI of the left foot shows no evidence of osteomyelitis. No fluid collection to suggest abscess. He is tolerating p.o. without difficulty, so given improvement in cellulitis can transition to p.o. antibiotics Will switch to ciprofloxacin and Augmentin; he will have reevaluation at the wound care center early next week His INR is therapeutic; he may need more frequent monitoring while on the antibiotics. Resident Activity Tracking Resident Involvement: Resident Care Provided Care Provided: Adult [facility] Medicine
[2020-01-30] MEDS: LACTATED RINGER'S 1,000 ML IV SCH (09:14)
[2020-01-30] MEDS: LOSARTAN POTASSIUM 25 MG TAB PO SCH (09:53)
[2020-01-30] MEDS: allopurinoL 300 MG TAB PO SCH (09:53)
--- NOTE | 2020-02-12 10:01 | Coding Query ---
PRESENT ON ADMISSION QUERY To promote full compliance with coding requirements relating to pateint care, physician participation is requested in all cases of casting machine adjuster uncertainty. Please assist us with the question(s) below: Please place an X within the parenthesis (x). The following diagnosis listed in this patient's medical record require physician assistance to determine if they were present on admission (POA) or not. Please advise for each diagnosis whether it was present on admission, not present on admission, or if it was clinically undetermined. 1. SEPSIS (documentation begins on 01/28/20 Progress Note stating that patient progressed to sepsis on 01/27. Orders show patient was Observation on 01/27/20 and admitted as Inpatient on 01/28/20) (X) Present On Admission ( ) Not Present On Admission ( ) Clinically Undetermined Thank you Cindy Vieira *Definition of the present on admission (POA)-Present on admission is defined as present at the time the order for inpatient admission occurs. Conditions that develop during an outpatient encounter prior to a written order for inpatient admission (including emergency department, observation, or outpatient surgery) are considered present on admission. KIARRAD
== END 2020-01-30 15:18 | disposition home health service (06) | DRG 872 ==
LOC: 3W 09:48 → ED 09:48 → 3W 12:28

== ENCOUNTER 2020-03-31 16:22 | Inpatient (IN) ==
[2020-03-31] MEDS ORDERED: DAPTOmycin 650 MG in SYRINGE 0 ML IV ONE (19:00)
[2020-03-31] MEDS ORDERED: cefTRIAXone SODIUM 2,000 MG/70 ML BAG IV STA (19:00)
--- NOTE | 2020-03-31 19:29 | XRay Report ---
XR foot LT 2V CLINICAL HISTORY: Left foot redness and drainage. COMPARISON STUDY: Left foot MRI 01/29/2020. FINDINGS: There is normal, healed fourth metacarpal fracture. No acute fracture or dislocation within the left foot. Plantar heel spur. Diffuse soft tissue swelling most pronounced within the dorsum of the foot. This remains unchanged. No soft tissue gas identified. No radiopaque foreign bodies. No remi tructive changes to suggest osteomyelitis. Advanced degenerative changes within the intertarsal joint s are again noted. IMPRESSION: 1. No change compared to the prior study. 2. Diffuse soft tissue swelling. 3. No evidence for osteomyelitis. ACT 112: Negative or not required by law. Electronically signed by: Cooper Wolf M.D. 03/31/2020 7:27 PM
[2020-03-31 19:59] LABS: Basophils # (auto) 0.03 K/uL (0-0.2); Basophils % (auto) 0.3 %; Eosinophils # (auto) 0.33 K/uL (0-0.5); Eosinophils % (auto) 2.8 %; Hematocrit (blood only) 50.2 % (42-52); Hemoglobin 17.2 g/dL (14.0-18.0); Immature Granulocytes # (auto) 0.04 K/uL (0.00-0.02); Immature Granulocytes % (auto) 0.3 %; Lymphocytes # (auto) 0.77 K/uL (1.2-3.4); Lymphocytes % (auto) 6.5 %; Mean Corpuscular Hemoglobin 30.9 pg (25-34); Mean Corpuscular Hgb Conc 34.3 g/dL (32-36); Mean Corpuscular Volume 90.1 fL (80-100); Mean Platelet Volume 11.4 fL (7.4-10.4); Monocytes # (auto) 0.59 K/uL (0.11-0.59); Neutrophils # (auto) 10.14 K/uL (1.4-6.5); Neutrophils % (auto) 85.1 %; Platelet Count 210 K/uL (130-400); RDW Coefficient of Variation 16.8 % (11.5-14.5); Red Blood Count 5.57 M/uL (4.7-6.1)
[2020-03-31 20:23] LABS: Albumin Level 3.4 gm/dl (3.4-5.0); BUN Creatinine Ratio 15.5 (10-20); Calcium 9.2 mg/dl (8.5-10.1); Creatinine Clr Calc Pharmacy 53.3 ml/min; Est GFR (African American) 40.1; Est GFR (Non-African American) 34.6; Magnesium 1.8 mg/dl (1.8-2.4); Potassium 4.9 mmol/L (3.5-5.1)
[2020-03-31 20:26] LABS: Albumin Globulin Ratio 0.7 (0.9-2); Bilirubin,Total 0.8 mg/dl (0.2-1); Total Protein 8.4 gm/dl (6.4-8.2)
--- NOTE | 2020-03-31 21:04 | History & Physical Report ---
Date of Service March 31, 2020 Assessment & Plan (1) Cellulitis: Patient is a 74 year old male with PMHx Gout, HTN, Afib, CKD III that presented with complaint of L leg swelling, pain, and foot infection. Patient notes that he was at the wound care clinic earlier this afternoon when it was recommended that he come to the ED for evaluation and possible admission for treatment. Left LE Cellulitis -Failed outpatient treatment with oral Doxycycline and Bactrim -Wound culture from 03/24/20 growing Alcaligenes faecalis and Staphylococcus aureus -Repeat wound culture obtained today while at Wound Center, pending -Patient given IV Daptomycin and IV CTX in ED -Will transition to IV Zosyn as based on prior cultures should cover both species -For corrections identification technician treatment, may be able to convert to IV Ceftriaxone, will discuss with micro to add CTX onto sensitivities for new studies. -Will add on probiotic as suspect patient will require mcc antibiotic therapy -Patient noting that he is agreeable to a PICC line should he require one for long-term treatment -Will order for LE US to r/o DVT, patient was to have venous doppler study later this month for venous reflux disease -Foot XR without obvious signs of osteomyelitis Chronic Afib -Continue home Warfarin -INR on admission 2.6 -Continue home Metoprolol HTN -Continue home metoprolol -Continue home Losartan CKD III -At baseline, Cr 1.86 on admission Sleep Apnea -CPAP HS Hx Gout -Continue home Allopurinol Hypothyroidism -TSH 4.96 06/19/18, repeat ordered for AM -Continue home Levothyroxine Dispo: Med/Surg FEN: HH Diet DVT: Home Warfarin Code: Full (2) Hypertension: (3) Chronic atrial fibrillation: (4) Chronic kidney disease, stage III (moderate): (5) Sleep apnea: History of Present Illness Chief Complaint: L leg swelling and pain Primary Care Provider: Clovis Heredia Patient is a 74 year old male with PMHx Gout, HTN, Afib, CKD III that presented with complaint of L leg swelling, pain, and foot infection. Patient notes that he was at the wound care clinic earlier this afternoon when it was recommended that he come to the ED for evaluation and possible admission for treatment. Patient notes that his L leg had been swelling for the past 7 years, but that his most recent foot infection started roughly 1 month ago as a small lesion on the sole of his foot. At that time he had treated it with Nexcare, but it had minimally improved the redness and swelling. He notes that earlier this week he was started on Bactrim and Doxycycline which he has been taking twice a day daily, with slight improvement on the ventral portion of his foot, but minimal improvement on the plantar side. He notes that currently his pain is roughly a 2/10 primarily on the sole of his foot. He states he has been walking on it, but because he keeps it wrapped up so tightly he does not really notice discomfort with walking. Otherwise denies any fever, chills, SOB, chest pain, abdominal pain, calf pain. Med Hx: Gout, HTN, Afib, CKD III, Sleep Apnea Surg hx: denies hx of surgeries Fam Hx: Mother breast cx, Father heart failure, Younger brother [place] Social Hx: 5 year pack history quit 50 years ago, Drinks 750ml champagne weekly, denies drug use Allergies Allergy/AdvReac Type Severity Reaction Status Date / Time hydrochlorothiazide Allergy Unknown "shut down Verified 03/31/20 20:13 kidneys" Home Medications Medication Instructions Recorded Confirmed Type metoprolol succinate 100 mg PO DAILY@1999 #0 08/07/16 03/31/20 History levothyroxine 137 mcg PO QAM 07/29/18 03/31/20 History allopurinol 300 mg tablet 300 mg PO QAM 01/02/19 03/31/20 History losartan 25 mg tablet 25 mg PO QAM 01/21/20 03/31/20 History warfarin 5 mg tablet See Rx Instructions .ROUTE 03/01/20 03/31/20 History .COMPLEX tab sulfamethoxazole 800 1 tab PO BID #28 tab 03/30/20 03/31/20 Rx mg-trimethoprim 160 mg tablet doxycycline hyclate 100 mg PO BID 03/31/20 03/31/20 History Past Med/Surg History Medical History (Updated 04/01/20 @ 13:00 by Jacob Conroy MD) Atrial fibrillation, chronic BPH (benign prostatic hyperplasia) Cellulitis of left anterior lower leg Chronic atrial fibrillation Chronic kidney disease, stage III (moderate) Chronic ulcer of left foot Gout Hearing deficit History of basal cell carcinoma Hypertension Hypothyroidism no longer on any meds Leukocytosis Obesity On anticoagulant therapy Penile hypospadias Prediabetes Renal cyst Sepsis Sleep apnea cpap Surgical History History of esophagogastroduodenoscopy (EGD) Family History Other Hearing loss No family history of adverse response to anesthesia No family history of bleeding disorder Denies family history of Heart disease Allergies Cancer Hypertension Stroke Asthma Social History Smoking Status: Former smoker Tobacco Type: Cigarettes packs per day: 1; Second Hand Exposure: No; Do You Dip or Chew Tobacco: No; Hx Alcohol Use: Yes Alcohol type: other Alcohol Intake Frequency Comment: 1 bottle of champagne / week Hx Substance Use: No Preferred Language: [place] Communication Ability: Effective 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 Seating Required: No Beliefs That Will Affect Care: Buddhist Buddhist Beliefs: Church marital status: Current Living Situation: Spouse current occupational status: retired Other Information That Helps Us Care for You: No Feels Safe at Home: No Is there a partner from a previous relationship who is making you feel unsafe now?: No Any Concerns about Your Family Situation: No Would You Like to Speak to Someone About Your Situation: No Safety Concerns: Feels Safe At This Time Assistive Devices: Glasses and Walker Review of Systems Constitutional: no fever, no chills and no fatigue Eyes: no photophobia and no worsening vision Ear, Nose, Mouth, Throat: no ear pain and no dizziness Respiratory: no cough, no chest congestion, no dyspnea, no dyspnea on exertion and no pain on inspiration Cardiovascular: no chest pain, no chest pain at rest, no radiating jaw, neck or arm pain, no dyspnea, no dyspnea on exertion, no palpitations, no lightheadedness, no edema and no calf pain Gastrointestinal: no abdominal pain, no nausea, no vomiting, no constipation and no diarrhea/loose stools Musculoskeletal: no muscle weakness Integumentary: + non-healing lesions (LLE ), + sores, + wounds and + skin swelling (LLE ) Neurologic: no falls and no headache(s) Physical Exam Constitutional: well developed and well nourished; no acute distress Eyes: PERRL, conjunctivae normal, anicteric sclerae normal visual hodgson by confrontation ENMT: external ear and nose normal, oropharynx normal Neck: trachea midline, no thyromegaly Respiratory: normal respiratory effort, lungs clear to auscultation Cardiovascular: Rate/Rhythm: + irregularly irregular Heart Sounds: no murm ur Vessels: no JVD Extremities: + edema (+1 RLE, 2+ LLE); no calf tenderness Gastrointestinal (Abdomen): normal bowel sounds, soft, nontender, no hepatosplenomegaly Musculoskeletal: Left LE with swelling and erythema to slightly above the mid calf/wood (marked with marker on 03/31/20 at 21:00). Heel of foot with macerated skin and serosanguineous drainage from multiple locations. No obvious ulceration. Psychiatric: A+Ox3, euthymic affect Results & Data Results & Data ([facility]) Vital Signs (Past 12 Hours) Vital Signs Temp Pulse Resp BP Pulse Ox 03/31/20 20:30 83 16 03/31/20 20:20 91 H 20 03/31/20 20:10 78 22 03/31/20 20:00 75 16 03/31/20 19:50 84 14 03/31/20 19:40 85 16 03/31/20 19:37 92 H 17 03/31/20 16:38 36.9 C 73 20 154/86 H 100 Supervising Physician Co-Signing Physician Notes Attending addendum: I have physically seen this patient, have supervised the medical residents activities, and agree with the H&P unless as otherwise noted. Assessment and Plan: Severe left lower extremity cellulitis- Received daptomycin and ceftriaxone IV in the ED Placed on Zosyn IV to cover Alcaligenes faecalis and staph aureus in recent culture Consult wound care Would likely benefit from Unna boot No role for diuresis Ordered lower extremity venous Doppler to assess for DVT Will likely need PICC line for long-term IV antibiotics Chronic A. fib/hypertension- Continue metoprolol, losartan and warfarin Remaining orders and notations as noted Resident Activity Tracking Resident Involvement: Resident Care Provided Care Provided: Adult Hospital Medicine (1) Cellulitis Laterality: left Site of cellulitis: extremity Site of cellulitis of extremity: lower extremity Qualified Code(s): L03.116 - Cellulitis of left lower limb
[2020-03-31] MEDS ORDERED: WARFARIN SOD 5 MG TAB PO SCH (21:24)
[2020-03-31 22:40] LABS: INR 3.6 (0.9-1.1); Partial Thromboplastin Ratio 2.2
[2020-03-31] MEDS ORDERED: ACETAMINOPHEN 325 MG TAB PO PRN (22:54)
[2020-03-31] MEDS ORDERED: PIPERACILL/TAZOBAC CONSULT ACTIVE PRN (22:54)
[2020-03-31 23:10] LABS: Partial Thromboplastin Time 60.4 Seconds (21.0-31.0)
[2020-04-01] MEDS ORDERED: PIPERACILLIN/TAZOBACTAM 4.5 GM in DEXTROSE 5% 100 ML IV SCH
[2020-04-01] MEDS: METOPROLOL SUCC 50MG EXT REL TAB PO SCH ×2 (00:18→20:29)
[2020-04-01] MEDS: PIPERACILLIN/TAZOBACTAM 4.5 GM in DEXTROSE 5% 100 ML IV SCH ×3 (05:24→22:01)
[2020-04-01] MEDS: LEVOTHYROXINE SODIUM 137 MCG TABLET PO SCH (05:24)
[2020-04-01 06:29] LABS: Basophils # (auto) 0.02 K/uL (0-0.2); Basophils % (auto) 0.2 %; Eosinophils # (auto) 0.43 K/uL (0-0.5); Eosinophils % (auto) 3.6 %; Hematocrit (blood only) 47.9 % (42-52); Immature Granulocytes # (auto) 0.03 K/uL (0.00-0.02); Immature Granulocytes % (auto) 0.3 %; Lymphocytes # (auto) 0.72 K/uL (1.2-3.4); Mean Corpuscular Hemoglobin 30.2 pg (25-34); Mean Corpuscular Hgb Conc 33.4 g/dL (32-36); Mean Corpuscular Volume 90.4 fL (80-100); Mean Platelet Volume 10.9 fL (7.4-10.4); Monocytes # (auto) 0.52 K/uL (0.11-0.59); Monocytes % (auto) 4.3 %; Neutrophils # (auto) 10.24 K/uL (1.4-6.5); Neutrophils % (auto) 85.6 %; Platelet Count 182 K/uL (130-400); RDW Coefficient of Variation 16.7 % (11.5-14.5); RDW Standard Deviation 54.8 fL (36.4-46.3); White Blood Count 11.96 K/uL (4.8-10.8)
[2020-04-01 06:38] LABS: INR 3.5 (0.9-1.1); Prothrombin Time 34.5 Seconds (9.0-12.0)
[2020-04-01 07:04] LABS: BUN Creatinine Ratio 17.8 (10-20); Calcium 8.2 mg/dl (8.5-10.1); Creatinine Clr Calc Pharmacy 61.6 ml/min; Est GFR (African American) 47.8; Est GFR (Non-African American) 41.2; Potassium 4.8 mmol/L (3.5-5.1)
[2020-04-01 07:15] LABS: Thyroid Stimulating Hormone 2.54 uIu/ml (0.300-4.500)
--- NOTE | 2020-04-01 07:58 | Ultrasound Report ---
US venous doppler LE LT HISTORY: 74 years-old Male r/o DVT acute pain and swelling of the left lower leg COMPARISON: Duplex venous Doppler study 09/23/2019 TECHNIQUE: Multiple real-time sonographic images of the left lower extremity deep venous structures w ere obtained assessing grayscale appearance, color and spectral flow FINDINGS: Normal flow, compressibility, phasicity and augmentation of the left lower extremity deep venous stru ctures. Mild subcutaneous edema. IMPRESSION: No sonographic evidence of deep venous thrombosis. ACT 112: Negative or not required by law. The above report was generated using voice recognition software. It may contain grammatical, syntax o r spelling errors. Electronically signed by: Rodríguez Castillo M.D. 04/01/2020 7:57 AM
[2020-04-01] MEDS: LOSARTAN POTASSIUM 25 MG TAB PO SCH (09:23)
[2020-04-01] MEDS: ADVANCED PROBIOTIC 1250 MG CAPSULE PO SCH (09:23)
[2020-04-01] MEDS: allopurinoL 300 MG TAB PO SCH (09:23)
--- NOTE | 2020-04-01 12:58 | Emergency Department Note ---
Impression & Plan Cellulitis of foot ED Provider Note NAME: ANNAMARIE LARSEN AGE: 74 SEX: M : 1945 ARRIVES VIA: Walk-In INFORMANT: Patient, ED PROVIDER(S): Jacob Conroy MD Chief Complaint: Left foot wound, wound care referral HPI: The patient has had approximately several weeks of symptoms with associated skin issues and wound to the left foot. The patient had been doctoring with his primary care physician Dr. Heredia who had referred him to wound care management. They have been doing dressing changes as well as topical treatments but this has failed. The patient has been taking doxycycline. Patient does complain of pain that is sharp in nature worse with palpation or ambulation. The patient denies any calf pain fevers chills chest pains or shortness of breath. Patient denies any nausea or vomiting. The patient states he is a prediabetic but does not take any insulin or antihyperglycemic therapy. Patient is on anticoagulant therapy for a history of atrial fibrillation. ROS: See HPI for pertinent positives and negatives. A total of 10 systems were reviewed and otherwise negative. Past medical history: See below Surgical history: See below Social history: See below Physical Exam: GENERAL: Wearing glasses and a mask, hard of hearing. NAD, non-toxic. EYE EXAM: Normal conjunctiva. PERRL, no anisocoria and EOM's grossly intact w/o pain. NECK: Supple, no nuchal rigidity, no adenopathy, non-tender. No signs of meningismus. LUNGS: Clear to auscultation. Normal chest wall mechanics. HEART: Irregularly irregular, no MRG. ABDOMEN: Abdomen soft, non-tender, normo-active bowel sounds, no masses, no rebound or guarding. BACK: No CVA TTP. SKIN: No rashes and no bruising. UPPER EXTREMITIES: Upper extremities are grossly normal. LOWER EXTREMITIES: Grossly normal, redness and edema noted without crepitus from the mid wood of the left lower extremity down. Warmth noted, compartments are soft, neurovascular intact, diffuse redness that blanches throughout. NEURO EXAM: A&O x3, cranial nerves II-XII grossly intact, normal speech, moves all 4 extremities on command w/o issue. Differential diagnoses: Cellulitis, abscess, MRSA infection, DVT, necrotizing fasciitis, dermatitis, drug eruption, allergic reaction, as well as other pathologies. Course: Patient was seen and evaluated the bedside. Full history physical exam was performed. EKG: Indication: History of A. fib A. fib, rate of 79, wide QRS, right bundle branch block pattern. PVCs noted. Imaging Studies: Radiology results as stated below per my review in the radiologist's interpretation: XR foot LT 2V CLINICAL HISTORY: Left foot redness and drainage. COMPARISON STUDY: Left foot MRI 01/29/2020. FINDINGS: There is normal, healed fourth metacarpal fracture. No acute fracture or dislocation within the left foot. Plantar heel spur. Diffuse soft tissue swelling most pronounced within the dorsum of the foot. This remains unchanged. No soft tissue gas identified. No radiopaque foreign bodies. No destructive changes to suggest osteomyelitis. Advanced degenerative changes within the intertarsal joints are again noted. IMPRESSION: 1. No change compared to the prior study. 2. Diffuse soft tissue swelling. 3. No evidence for osteomyelitis. ACT 112: Negative or not required by law. Electronically signed by: Cooper Wolf M.D. 03/31/2020 7:27 PM Dictated: 03/31/201924Transcribed: 03/31/201924 Cardiac monitoring: An order was placed for continuous cardiac monitoring. The monitor shows a rate of 79 with irregularly irregular rhythm. MDM: Patient did present due to concern for left lower extremity wound that is chronic and not being ameliorated with outpatient treatments. Blood work was obtained the patient was. Given daptomycin and Rocephin after discussing with the ER pharmacist. Wound culture and blood cultures were obtained. I did speak to the on-call hospitalist and the patient was admitted to the medicine service by Dr. Mancini. Patient has a white count of 11.9 with a normal H&H and platelet count. The patient's kidney function is a virtual baseline. The patient is slightly supratherapeutic with an INR 3.6. Foot x-ray negative. Procalcitonin not elevated. Patient's lactate 1.5. Low suspicion for necrotizing fasciitis at this time given current blood work lack of crepitus patient is afebrile well- appearing at time of admission. Past Med/Surg History Medical History (Updated 04/01/20 @ 13:00 by Jacob Conroy MD) Atrial fibrillation, chronic BPH (benign prostatic hyperplasia) Cellulitis of left anterior lower leg Chronic atrial fibrillation Chronic kidney disease, stage III (moderate) Chronic ulcer of left foot Gout Hearing deficit History of basal cell carcinoma Hypertension Hypothyroidism no longer on any meds Leukocytosis Obesity On anticoagulant therapy Penile hypospadias Prediabetes Renal cyst Sepsis Sleep apnea cpap Surgical History History of esophagogastroduodenoscopy (EGD) Family History Other Hearing loss No family history of adverse response to anesthesia No family history of bleeding disorder Denies family history of Heart disease Allergies Cancer Hypertension Stroke Asthma Social History Smoking Status: Former smoker Tobacco Type: Cigarettes packs per day: 1; Second Hand Exposure: No; Do You Dip or Chew Tobacco: No; Hx Alcohol Use: Yes Alcohol type: other Alcohol Intake Frequency Comment: 1 bottle of champagne / week Hx Substance Use: No Preferred Language: Dominican Communication Ability: Effective Race Steward Required: No Beliefs That Will Affect Care: Congregational Congregational Beliefs: Synagogue marital status: Current Living Situation: Spouse current occupational status: retired Other Information That Helps Us Care for You: No Feels Safe at Home: No Is there a partner from a previous relationship who is making you feel unsafe now?: No Any Concerns about Your Family Situation: No Would You Like to Speak to Someone About Your Situation: No Safety Concerns: Feels Safe At This Time Assistive Devices: Walker Allergies Allergies Allergy/AdvReac Type Severity Reaction Status Date / Time hydrochlorothiazide Allergy Unknown "shut down Verified 03/31/20 20:13 kidneys" Home Meds Home Medications Medication Instructions Recorded Confirmed metoprolol succinate 100 mg PO DAILY@1999 #0 08/07/16 03/31/20 levothyroxine 137 mcg PO QAM 07/29/18 03/31/20 allopurinol 300 mg tablet 300 mg PO QAM 01/02/19 03/31/20 losartan 25 mg tablet 25 mg PO QAM 01/21/20 03/31/20 warfarin 5 mg tablet See Rx Instructions .ROUTE 03/01/20 03/31/20 .COMPLEX tab doxycycline hyclate 100 mg PO BID 03/31/20 03/31/20 Previous Rx's Medication Instructions Recorded sulfamethoxazole 800 1 tab PO BID #28 tab 03/30/20 mg-trimethoprim 160 mg tablet Results & Data (ED) Vital Signs Vital Signs - 24 hr 03/31/20 16:38 03/31/20 19:33 03/31/20 19:37 Temperature 36.9 C Temperature Source Oral Pulse Rate 73 92 H Pulse Rate from SpO2 Sensor Respiratory Rate 20 17 Respiratory Effort / Characteristics Non-Labored Spontaneous Non-Labored Spontaneous Respiratory Depth Normal Respiratory Pattern Regular Blood Pressure 154/86 H Blood Pressure Mean 108 Blood Pressure Position Sitting Pulse Oximetry 100 Oxygen Delivery Method Room Air Room Air Room Air Sepsis Recent Fever Within 48 Hours No Sepsis New/Unexplained Change in Mental Status N/A Sepsis Action Taken by Nursing No Action Required 03/31/20 19:40 03/31/20 19:50 03/31/20 20:00 Temperature Temperature Source Pulse Rate 85 84 75 Pulse Rate from SpO2 Sensor Respiratory Rate 16 14 16 Respiratory Effort / Characteristics Respiratory Depth Respiratory Pattern Blood Pressure Blood Pressure Mean Blood Pressure Position Pulse Oximetry Oxygen Delivery Method Room Air Room Air Room Air Sepsis Recent Fever Within 48 Hours Sepsis New/Unexplained Change in Mental Status Sepsis Action Taken by Nursing 03/31/20 20:10 03/31/20 20:20 03/31/20 20:30 Temperature Temperature Source Pulse Rate 78 91 H 83 Pulse Rate from SpO2 Sensor Respiratory Rate 22 20 16 Respiratory Effort / Characteristics Respiratory Depth Respiratory Pattern Blood Pressure Blood Pressure Mean Blood Pressure Position Pulse Oximetry Oxygen Delivery Method Room Air Room Air Room Air Sepsis Recent Fever Within 48 Hours Sepsis New/Unexplained Change in Mental Status Sepsis Action Taken by Nursing 03/31/20 20:40 03/31/20 20:50 03/31/20 21:00 Temperature Temperature Source Pulse Rate 85 84 75 Pulse Rate from SpO2 Sensor Respiratory Rate 15 15 22 Respiratory Effort / Characteristics Respiratory Depth Respiratory Pattern Blood Pressure Blood Pressure Mean Blood Pressure Position Pulse Oximetry Oxygen Delivery Method Room Air Room Air Room Air Sepsis Recent Fever Within 48 Hours Sepsis New/Unexplained Change in Mental Status Sepsis Action Taken by Nursing 03/31/20 21:10 03/31/20 21:20 03/31/20 21:30 Temperature Temperature Source Pulse Rate 86 82 91 H Pulse Rate from SpO2 Sensor Respiratory Rate 17 15 18 Respiratory Effort / Characteristics Respiratory Depth Respiratory Pattern Blood Pressure Blood Pressure Mean Blood Pressure Position Pulse Oximetry Oxygen Delivery Method Room Air Room Air Room Air Sepsis Recent Fever Within 48 Hours Sepsis New/Unexplained Change in Mental Status Sepsis Action Taken by Nursing 03/31/20 21:39 03/31/20 21:40 Temperature Temperature Source Pulse Rate 87 92 H Pulse Rate from SpO2 Sensor 89 86 Respiratory Rate 14 17 Respiratory Effort / Characteristics Respiratory Depth Respiratory Pattern Blood Pressure Blood Pressure Mean 129 Blood Pressure Position Pulse Oximetry 98 Oxygen Delivery Method Room Air Room Air Sepsis Recent Fever Within 48 Hours Sepsis New/Unexplained Change in Mental Status Sepsis Action Taken by Nursing Laboratory Data Result diagrams: 04/01/20 05:57 04/01/20 05:57 Lab Results 03/31/20 03/31/20 03/31/20 Range/Units 19:46 19:49 19:49 WBC 11.90 H (4.8-10.8) K/uL RBC 5.57 (4.7-6.1) M/uL Hgb 17.2 (14.0-18.0) g/dL Hct 50.2 (42-52) % MCV 90.1 (80-100) fL MCH 30.9 (25-34) pg MCHC 34.3 (32-36) g/dL RDW Std Deviation 54.0 H (36.4-46.3) fL RDW Coeff of [place] 16.8 H (11.5-14.5) % Plt Count 210 (130-400) K/uL MPV 11.4 H (7.4-10.4) fL Immature Gran % (Auto) 0.3 % Neut % (Auto) 85.1 % Lymph % (Auto) 6.5 % Charlton % (Auto) 5.0 % Eos % (Auto) 2.8 % Baso % (Auto) 0.3 % Neut # (Auto) 10.14 H (1.4-6.5) K/uL Lymph # (Auto) 0.77 L (1.2-3.4) K/uL Charlton # (Auto) 0.59 (0.11-0.59) K/uL Eos # (Auto) 0.33 (0-0.5) K/uL Baso # (Auto) 0.03 (0-0.2) K/uL Immature Gran # (Auto) 0.04 H (0.00-0.02) K/uL PT Cancelled INR Cancelled APTT Cancelled PTT Ratio Cancelled Sodium (136-145) mmol/L Potassium (3.5-5.1) mmol/L Chloride (98-107) mmol/L Carbon Dioxide (21-32) mmol/L Anion Gap (3-11) BUN (7-18) mg/dl Creatinine (0.6-1.4) mg/dl Est Cr Clr Drug Dosing ml/min Est GFR ( Amer) Est GFR (Non-Af Amer) BUN/Creatinine Ratio (10-20) Glucose (70-99) mg/dl Lactate (0.4-2.0) mmol/L Calcium (8.5-10.1) mg/dl Magnesium (1.8-2.4) mg/dl Total Bilirubin (0.2-1) mg/dl AST (15-37) U/L ALT (12-78) U/L Alkaline Phosphatase (45-117) U/L Total Protein (6.4-8.2) gm/dl Albumin (3.4-5.0) gm/dl Globulin (2.5-4.0) gm/dl Albumin/Globulin Ratio (0.9-2) Procalcitonin (0-0.5) ng/ml SARS-CoV-2 Ag (Rapid) Negative (Negative) 03/31/20 03/31/20 03/31/20 Range/Units 19:49 19:49 19:49 WBC (4.8-10.8) K/uL RBC (4.7-6.1) M/uL Hgb (14.0-18.0) g/dL Hct (42-52) % MCV (80-100) fL MCH (25-34) pg MCHC (32-36) g/dL RDW Std Deviation (36.4-46.3) fL RDW Coeff of [place] (11.5-14.5) % Plt Count (130-400) K/uL MPV (7.4-10.4) fL Immature Gran % (Auto) % Neut % (Auto) % Lymph % (Auto) % Charlton % (Auto) % Eos % (Auto) % Baso % (Auto) % Neut # (Auto) (1.4-6.5) K/uL Lymph # (Auto) (1.2-3.4) K/uL Charlton # (Auto) (0.11-0.59) K/uL Eos # (Auto) (0-0.5) K/uL Baso # (Auto) (0-0.2) K/uL Immature Gran # (Auto) (0.00-0.02) K/uL PT INR APTT PTT Ratio Sodium 139 (136-145) mmol/L Potassium 4.9 (3.5-5.1) mmol/L Chloride 110 H (98-107) mmol/L Carbon Dioxide 22 (21-32) mmol/L Anion Gap 7.0 (3-11) BUN 29 H (7-18) mg/dl Creatinine 1.86 H (0.6-1.4) mg/dl Est Cr Clr Drug Dosing 53.3 ml/min Est GFR ( Amer) 40.1 Est GFR (Non-Af Amer) 34.6 BUN/Creatinine Ratio 15.5 (10-20) Glucose 88 (70-99) mg/dl Lactate 1.5 (0.4-2.0) mmol/L Calcium 9.2 (8.5-10.1) mg/dl Magnesium 1.8 (1.8-2.4) mg/dl Total Bilirubin 0.8 (0.2-1) mg/dl AST 18 (15-37) U/L ALT 19 (12-78) U/L Alkaline Phosphatase 98 (45-117) U/L Total Protein 8.4 H (6.4-8.2) gm/dl Albumin 3.4 (3.4-5.0) gm/dl Globulin 5.0 H (2.5-4.0) gm/dl Albumin/Globulin Ratio 0.7 L (0.9-2) Procalcitonin < 0.05 (0-0.5) ng/ml SARS-CoV-2 Ag (Rapid) (Negative) Administered Medications Allopurinol (Allopurinol 300 Mg Tab) 300 mg PO QAM ROYA Stop: 05/01/20 08:59 Last Admin: 04/01/20 09:23 Dose: 300 mg Documented by: [id number] Piperacillin Sod/Tazobactam (Sod 4.5 gm/ Dextrose) 120 mls @ 30 mls/hr IV Q8H [facility]; Protocol Stop: 04/08/20 05:59 Last Infusion: 04/01/20 09:25 Dose: 0 mls/hr Documented by: [id number] Admin: 04/01/20 05:24 Dose: 30 mls/hr Documented by: [id number] Lactobacillus Acidoph/Casei/Rhamnos (Advanced Probiotic 1250 Mg Capsule) 2 cap PO DAILY [facility] Stop: 05/01/20 08:59 Last Admin: 04/01/20 09:23 Dose: 2 cap Documented by: [id number] Levothyroxine Sodium (Levothyroxine Sodium 137 Mcg Tablet) 137 mcg PO DAILYBB [facility] Stop: 05/01/20 06:29 Last Admin: 04/01/20 05:24 Dose: 137 mcg Documented by: [id number] Losartan Potassium (Losartan Potassium 25 Mg Tab) 25 mg PO QAM [facility] Stop: 05/01/20 08:59 Last Admin: 04/01/20 09:23 Dose: 25 mg Documented by: [id number] Metoprolol Succinate (Metoprolol Succ 50mg Ext Rel Tab) 100 mg PO DAILY@1999 [facility] Stop: 04/30/20 21:23 Last Admin: 04/01/20 00:18 Dose: 100 mg Documented by: [id number] Discontinued Medications Daptomycin 650 mg/ Syringe 13 mls @ 6.5 mls/min IV NOW ONE; Protocol Stop: 03/31/20 19:01 Last Admin: 03/31/20 20:17 Dose: 6.5 mls/min Documented by: [id number] Ceftriaxone Sodium (Rocephin) 2,000 mg in 70 mls @ 140 mls/hr IV NOW [facility] Stop: 03/31/20 19:29 Last Infusion: 03/31/20 20:56 Dose: 0 mls/hr Documented by: [id number] Admin: 03/31/20 20:17 Dose: 140 mls/hr Documented by: [id number] Piperacillin Sod/Tazobactam (Sod 4.5 gm/ Dextrose) 120 mls @ 240 mls/hr IV TODAY@0000 [facility]; Protocol Stop: 04/01/20 00:29 Last Infusion: 04/01/20 00:41 Dose: 0 mls/hr Documented by: [id number] Admin: 04/01/20 00:00 Dose: 240 mls/hr Documented by: [id number] Discharge Plan Visit Data Chief Complaint: Infection Stated Complaint: INFECTION IN FOOT ED Provider: Jacob Conroy Discharge Problem: Cellulitis of foot Patient Disposition: Admitted As Inpatient Discharge Instructions Interventions: ED Discharge Assessment Last Done: 03/31/20 22:22
--- NOTE | 2020-04-01 19:45 | Billing Data ---
Date of Service April 01, 2020 Coding Level of Care Code 58300 OBS Care - Level 3
[2020-04-01] MEDS: DAPTOmycin 450 MG in SYRINGE 0 ML IV SCH (20:29)
[2020-04-01] MEDS: EUCERIN CR 120 GM JAR EXT SCH (21:03)
--- NOTE | 2020-04-01 21:07 | Hospitalist Progress Note ---
Date of Service April 01, 2020 Assessment & Plan (1) Cellulitis: Patient is a 74 year old male with PMHx Gout, HTN, Afib, CKD III that presented with complaint of L leg swelling, pain, and foot infection. Patient notes that he was at the wound care clinic earlier this afternoon when it was r ecommended that he come to the ED for evaluation and possible admission for treatment. Left LE Cellulitis -Unsure if I would consider this a failed outpatient treatment with oral Doxycycline and Bactrim -Wound culture from 03/24/20 growing Alcaligenes faecalis and Staphylococcus aureus -Repeat wound culture obtained today while at Wound Center, pending -Patient given IV Daptomycin and IV CTX in ED -transitioned to IV Zosyn as based on prior cultures should cover both species -no significant improvement, will continue to monitor. -For intermediate manager treatment, may be able to convert to IV Ceftriaxone. -Will add on probiotic as suspect patient will require mcc antibiotic therapy -Patient noting that he is agreeable to a PICC line should he require one for long-term treatment Chronic Afib -Continue home Warfarin -INR on admission 2.6 -Continue home Metoprolol HTN -Continue home metoprolol -Continue home Losartan CKD III -At baseline, Cr 1.86 on admission Sleep Apnea -CPAP HS Hx Gout -Continue home Allopurinol Hypothyroidism -TSH 4.96 06/19/18, repeat ordered for AM -Continue home Levothyroxine Dispo: Med/Surg FEN: HH Diet DVT: Home Warfarin Code: Full (2) Hypertension: (3) Chronic atrial fibrillation: (4) Chronic kidney disease, stage III (moderate): (5) Sleep apnea: Admission and Anticipated Discharge Date Admission Date: March 31, 2020 Subjective Patient reports that he continues to have pain in his affected foot. Review of Systems Review of Systems: All systems reviewed & are unremarkable except as noted in HPI & below Physical Exam Physical Exam: Constitutional: well developed and well nourished; no acute distress Eyes: PERRL, conjunctivae normal, anicteric sclerae normal visual hodgson by confrontation ENMT: external ear and nose normal, oropharynx normal Neck: trachea midline, no thyromegaly Respiratory: normal respiratory effort, lungs clear to auscultation Cardiovascular: Rate/Rhythm: + irregularly irregular Heart Sounds: no murmur Vessels: no JVD Extremities: + edema (+1 RLE, 2+ LLE); no calf tenderness Gastrointestinal (Abdomen): normal bowel sounds, soft, nontender, no hepatosplenomegaly Musculoskeletal: Left LE with swelling and erythema to slightly above the mid calf/wood; Heel of foot with macerated skin and serosanguineous drainage from multiple locations. No obvious ulceration. Psychiatric: A+Ox3, euthymic affect Results & Data Results & Data ([facility]) Vital Signs (Past 12 Hours) Vital Signs Temp Pulse Resp BP Pulse Ox 04/01/20 20:27 87 107/63 04/01/20 15:00 36.9 C 81 16 101/66 94 PG Care Time/CCT Total # of Minutes Spent Total Time Spent with Patient: Total time spent is greater than 50% in coordination of care (as documented) at patient's floor/unit and/or counseling patient: Coding Level of Care Code 80098 Subseq Hosp Care Lvl 3 Diagnoses Cellulitis L03.116 Laterality: left Site of cellulitis: extremity Site of cellulitis of extremity: lower extremity Hypertension I10 Chronic atrial fibrillation I48.2 Chronic kidney disease, stage III (moderate) N18.3 Sleep apnea G47.30 Time Spent (min) 35 (1) Cellulitis Laterality: left Site of cellulitis: extremity Site of cellulitis of extremity: lower extremity Qualified Code(s): L03.116 - Cellulitis of left lower limb
[2020-04-01 22:25] LABS: Appearance Urine Clear (Clear); Bacteria Urine Automated Negative (Negative); Bilirubin Urine Negative (Negative); Blood Urine Negative (Negative); Color Urine Dark Yellow; Glucose Urine UA Negative (Negative); Ketones Urine Trace (Negative); Leukocyte Esterase Urine Trace (Negative); Nitrite Urine Negative (Negative); Protein Urine 1+ (Negative); RBC Urine Automated 0-4 /hpf (0-4); Specific Gravity Urine 1.027 (1.000-1.030); Urobilinogen Urine Negative (Negative)
[2020-04-02] MEDS: PIPERACILLIN/TAZOBACTAM 4.5 GM in DEXTROSE 5% 100 ML IV SCH ×3 (05:28→21:46)
[2020-04-02] MEDS: LEVOTHYROXINE SODIUM 137 MCG TABLET PO SCH (05:28)
--- NOTE | 2020-04-02 06:08 | Electrocardiogram Report ---
Test Reason : Blood Pressure : / mmHG Vent. Rate : 079 BPM Atrial Rate : 241 BPM P-R Int : 000 ms QRS Dur : 140 ms QT Int : 412 ms P-R-T Axes : 000 014 -11 degrees QTc Int : 472 ms Atrial fibrillation with premature ventricular or aberrantly conducted complexes Right bundle branch block T wave abnormality, consider inferior ischemia Abnormal ECG When compared with ECG of 23-SEP-2019 11:26, No significant change was found Confirmed by Ozzy Shi ([id number]) on 04/02/2020 6:08:32 AM Referred By: REFERRED SELF Confirmed By:Ozzy Shi
[2020-04-02 07:17] LABS: INR 2.5 (0.9-1.1); Prothrombin Time 25.4 Seconds (9.0-12.0)
[2020-04-02 07:37] LABS: Creatinine Clr Calc Pharmacy 44.6 ml/min; Est GFR (African American) 32.4; Est GFR (Non-African American) 27.9
[2020-04-02] MEDS: LOSARTAN POTASSIUM 25 MG TAB PO SCH (08:44)
[2020-04-02] MEDS: allopurinoL 300 MG TAB PO SCH (09:16)
[2020-04-02] MEDS: ADVANCED PROBIOTIC 1250 MG CAPSULE PO SCH (09:16)
[2020-04-02] MEDS: EUCERIN CR 120 GM JAR EXT SCH ×2 (09:17→20:48)
[2020-04-02] MEDS ORDERED: WARFARIN SOD 7.5 MG TAB PO SCH (16:00)
[2020-04-02] MEDS: DAPTOmycin 450 MG in SYRINGE 0 ML IV SCH (20:47)
[2020-04-02] MEDS: METOPROLOL SUCC 50MG EXT REL TAB PO SCH (20:47)
--- NOTE | 2020-04-02 22:40 | Hospitalist Progress Note ---
Date of Service April 02, 2020 Assessment & Plan (1) Cellulitis: Patient is a 74 year old male with PMHx Gout, HTN, Afib, CKD III that presented with complaint of L leg swelling, pain, and foot infection. Patient notes that he was at the wound care clinic earlier this afternoon when it was r ecommended that he come to the ED for evaluation and possible admission for treatment. Left LE Cellulitis -Unsure if I would consider this a failed outpatient treatment with oral Doxycycline and Bactrim -Wound culture from 03/24/20 growing Alcaligenes faecalis and Staphylococcus aureus -Repeat wound culture obtained while at Wound Center on dy of admission. -Patient given IV Daptomycin and IV CTX in ED -transitioned to IV Zosyn as based on prior cultures should cover both species -no significant improvement, will continue to monitor. -For correction treatment, may be able to convert to IV Ceftriaxone. -Will add on probiotic as suspect patient will require correction antibiotic therapy -Patient noting that he is agreeable to a PICC line should he require one for long-term treatment Chronic Afib -Continue home Warfarin -INR on admission 2.6 -Continue home Metoprolol HTN -Continue home metoprolol -Continue home Losartan CKD III -At baseline, Cr 1.86 on admission Sleep Apnea -CPAP HS Hx Gout -Continue home Allopurinol Hypothyroidism -TSH 4.96 06/19/18, repeat ordered for AM -Continue home Levothyroxine (2) Hypertension: (3) Chronic atrial fibrillation: (4) Chronic kidney disease, stage III (moderate): (5) Sleep apnea: Admission and Anticipated Discharge Date Admission Date: April 02, 2020 Subjective Patient is a 74 yo male who reports feeling well. He continues to have some pain in his affected foot. Patient denies any new complaints. Review of Systems Review of Systems: All systems reviewed & are unremarkable except as noted in HPI & below Physical Exam Physical Exam: Constitutional: well developed and well nourished; no acute distress Eyes: PERRL, conjunctivae normal, anicteric sclerae normal visual hodgson by confrontation ENMT: external ear and nose normal, oropharynx normal Neck: trachea midline, no thyromegaly Respiratory: normal respiratory effort, lungs clear to auscultation Cardiovascular: Rate/Rhythm: + irregularly irregular Heart Sounds: no murmur Vessels: no JVD Extremities: + edema (+1 RLE, 2+ LLE); no calf tenderness Gastrointestinal (Abdomen): normal bowel sounds, soft, nontender, no hepatosplenomegaly Musculoskeletal: Left LE with swelling and erythema to slightly above the mid calf/wood; Heel of foot with macerated skin and serosanguineous drainage from multiple locations. No obvious ulceration. Psychiatric: A+Ox3, euthymic affect Results & Data Results & Data ([facility]) Vital Signs (Past 12 Hours) Vital Signs Temp Pulse Resp BP Pulse Ox 04/02/20 20:46 89 117/82 04/02/20 15:58 36.3 C L 80 16 108/76 95 PG Care Time/CCT Total # of Minutes Spent Total Time Spent with Patient: Total time spent is greater than 50% in coordination of care (as documented) at patient's floor/unit and/or counseling patient: Coding Level of Care Code 05583 Subseq Hosp Care Lvl 2 Diagnoses Cellulitis L03.116 Laterality: left Site of cellulitis: extremity Site of cellulitis of extremity: lower extremity Hypertension I10 Chronic atrial fibrillation I48.2 Chronic kidney disease, stage III (moderate) N18.3 Sleep apnea G47.30 Time Spent (min) 25 (1) Cellulitis Laterality: left Site of cellulitis: extremity Site of cellulitis of extremity: lower extremity Qualified Code(s): L03.116 - Cellulitis of left lower limb
[2020-04-03] MEDS: LEVOTHYROXINE SODIUM 137 MCG TABLET PO SCH (06:28)
[2020-04-03] MEDS: PIPERACILLIN/TAZOBACTAM 4.5 GM in DEXTROSE 5% 100 ML IV SCH ×3 (06:28→22:29)
[2020-04-03] MEDS: ADVANCED PROBIOTIC 1250 MG CAPSULE PO SCH (07:51)
[2020-04-03] MEDS: LOSARTAN POTASSIUM 25 MG TAB PO SCH (07:51)
[2020-04-03] MEDS: EUCERIN CR 120 GM JAR EXT SCH ×2 (07:52→20:36)
[2020-04-03] MEDS: allopurinoL 300 MG TAB PO SCH (07:52)
[2020-04-03 08:44] LABS: INR 2.3 (0.9-1.1); Prothrombin Time 22.8 Seconds (9.0-12.0)
[2020-04-03 09:11] LABS: Creatinine Clr Calc Pharmacy 49.8 ml/min; Est GFR (Non-African American) 31.9
[2020-04-03] MEDS: WARFARIN SOD 5 MG TAB PO SCH (16:29)
[2020-04-03] MEDS: DAPTOmycin 450 MG in SYRINGE 0 ML IV SCH (20:35)
[2020-04-03] MEDS: METOPROLOL SUCC 50MG EXT REL TAB PO SCH (20:36)
--- NOTE | 2020-04-03 22:36 | Hospitalist Progress Note ---
Date of Service April 03, 2020 Assessment & Plan (1) Cellulitis: Patient is a 74 year old male with PMHx Gout, HTN, Afib, CKD III that presented with complaint of L leg swelling, pain, and foot infection. Patient notes that he was at the wound care clinic earlier this afternoon when it was r ecommended that he come to the ED for evaluation and possible admission for treatment. Left LE Cellulitis -Unsure if I would consider this a failed outpatient treatment with oral Doxycycline and Bactrim -Wound culture from 03/24/20 growing Alcaligenes faecalis and Staphylococcus aureus -Repeat wound culture obtained while at Wound Center on dy of admission. -Patient given IV Daptomycin and IV CTX in ED -transitioned to IV Zosyn as based on prior cultures should cover both species -no significant improvement, will continue to monitor. -Plan is to keep him here at least over the weekend, once erythema and swelling decreases, may consider discharge. -For long term care social worker treatment, may be able to convert to IV Ceftriaxone. -Will add on probiotic as suspect patient will require long term care social worker antibiotic therapy -Patient noting that he is agreeable to a PICC line should he require one for long-term treatment Chronic Afib -Continue home Warfarin -INR remains at goal. -Continue home Metoprolol HTN BP remains at goal. -Continue home metoprolol -Continue home Losartan CKD III -At baseline, Cr 1.86 on admission Sleep Apnea -CPAP HS Hx Gout -Continue home Allopurinol Hypothyroidism -TSH 4.96 06/19/18, repeat ordered for AM -Continue home Levothyroxine (2) Hypertension: (3) Chronic atrial fibrillation: (4) Chronic kidney disease, stage III (moderate): (5) Sleep apnea: Admission and Anticipated Discharge Date Admission Date: April 02, 2020 Subjective Patient reports no new symptoms Review of Systems Review of Systems: All systems reviewed & are unremarkable except as noted in HPI & below Physical Exam Physical Exam: Constitutional: well developed and well nourished; no acute distress Eyes: PERRL, conjunctivae normal, anicteric sclerae normal visual hodgson by confrontation ENMT: external ear and nose normal, oropharynx normal Neck: trachea midline, no thyromegaly Respiratory: normal respiratory effort, lungs clear to auscultation Cardiovascular: Rate/Rhythm: + irregularly irregular Heart Sounds: no murmur Vessels: no JVD Extremities: + edema (+1 RLE, 2+ LLE); no calf tenderness Gastrointestinal (Abdomen): normal bowel sounds, soft, nontender, no hepatosplenomegaly Musculoskeletal: Left LE with swelling and erythema to slightly above the mid calf/wood; Heel of foot with macerated skin and serosanguineous drainage from multiple locations. No obvious ulceration. Psychiatric: A+Ox3, euthymic affect Results & Data Results & Data ([facility]) Vital Signs (Past 12 Hours) Vital Signs Temp Pulse Resp BP Pulse Ox 04/03/20 20:36 65 112/69 04/03/20 16:02 36.4 C L 75 20 120/74 96 PG Care Time/CCT Total # of Minutes Spent Total Time Spent with Patient: Total time spent is greater than 50% in coordination of care (as documented) at patient's floor/unit and/or counseling patient: Coding Level of Care Code 20313 Subseq Hosp Care Lvl 2 Diagnoses Cellulitis L03.116 Laterality: left Site of cellulitis: extremity Site of cellulitis of extremity: lower extremity Hypertension I10 Chronic atrial fibrillation I48.2 Chronic kidney disease, stage III (moderate) N18.3 Sleep apnea G47.30 Time Spent (min) 25 (1) Cellulitis Laterality: left Site of cellulitis: extremity Site of cellulitis of extremity: lower extremity Qualified Code(s): L03.116 - Cellulitis of left lower limb
[2020-04-04] MEDS: PIPERACILLIN/TAZOBACTAM 4.5 GM in DEXTROSE 5% 100 ML IV SCH (05:56)
[2020-04-04] MEDS: LEVOTHYROXINE SODIUM 137 MCG TABLET PO SCH (05:56)
[2020-04-04 06:16] LABS: INR 2.1 (0.9-1.1); Prothrombin Time 21.7 Seconds (9.0-12.0)
[2020-04-04 06:42] LABS: Est GFR (African American) 39.9; Est GFR (Non-African American) 34.4
[2020-04-04] MEDS: LOSARTAN POTASSIUM 25 MG TAB PO SCH (07:32)
[2020-04-04] MEDS: ADVANCED PROBIOTIC 1250 MG CAPSULE PO SCH (07:33)
[2020-04-04] MEDS: allopurinoL 300 MG TAB PO SCH (07:33)
[2020-04-04] MEDS: EUCERIN CR 120 GM JAR EXT SCH ×2 (07:34→21:17)
[2020-04-04] MEDS ORDERED: cefTRIAXone SODIUM 2,000 MG in DEXTROSE 5% 50 ML IV SCH (12:00)
--- NOTE | 2020-04-04 14:05 | Hospitalist Progress Note ---
Date of Service April 04, 2020 Assessment & Plan (1) Cellulitis: Left LE Cellulitis -Improving. -Currently on IV Zosyn. Will transition to ceftriaxone today. -Culture from 03/31/20 grew alcaligenes faecalis and staph aureus. Will plan to d/c home on Bactrim DS possibly tomorrow. Will likely need 3-4 weeks of antibiotics. -Continue probiotic. -Continue to dress the wound with Aquacel ag daily. -Will need close follow-up with the wound clinic after discharge. Chronic Afib -Continue home Warfarin -INR remains at goal. -Continue home Metoprolol HTN BP remains at goal. -Continue home metoprolol -Continue home Losartan CKD III -At baseline, Cr 1.87 Sleep Apnea -CPAP HS Hx Gout -Continue home Allopurinol Hypothyroidism -TSH 2.540. -Continue home Levothyroxine Disposition: Likely d/c home tomorrow with on Bactrim DS. (2) Hypertension: - BP remains at goal. -Continue home metoprolol -Continue home Losartan (3) Chronic atrial fibrillation: -Continue home coumadin with alternating doses of 5 and 7.5 mg. Pt has refill. -INR remains at goal, repeat INR ordered for within 3 days. -Continue home Metoprolol (4) Chronic kidney disease, stage III (moderate): -At baseline, Cr 1.96. (5) Sleep apnea: - cpap HS (6) Cellulitis of foot: week. (7) Hypothyroidism: -TSH 2.540. -Continue home Levothyroxine (8) Anticoagulated on Coumadin: - Continue alternating doses of 5 mg and 7.5 mg as per med rec Admission and Anticipated Discharge Date Admission Date: April 02, 2020 Supervising Physician Co-Signing Physician Notes Patient seen and examined at bedside. Performed a brief history and examination while at bedside. I reviewed above note by APC Black Answered the patient's questions. I agree with above note. Will treat patient with bactrim at discharge likely tomorrow as his cellulitis has improved. Subjective 74 yo male admitted for cellulitis of the left foot. Wound is being dressed with Aquacel AG. Patient denies any pain today. No new complaints. Review of Systems Constitutional: no fever and no chills Eyes: no worsening vision Ear, Nose, Mouth, Throat: no dizziness Respiratory: no dyspnea Cardiovascular: no chest pain Gastrointestinal: no abdominal pain, no nausea and no vomiting Psychiatric: no confusion Physical Exam Physical Exam: Temp Pulse Resp BP Pulse Ox 36.4 C L 66 16 123/50 L 97 04/04/20 07:52 04/04/20 07:52 04/04/20 07:52 04/04/20 07:52 04/04/20 07:52 Patient is hypotensive at 123/50, but is asymptomatic. Constitutional: + obese; no acute distress ENMT: Ears: no hearing impairment Neck: normal visual inspection Respiratory: normal respiratory effort, lungs clear to auscultation Cardiovascular: RRR, no murmur, no edema Gastrointestinal (Abdomen): Inspection/Auscultation: normal bowel sounds Percussion/Palpation: abdomen soft; abdomen nontender Skin: + wound (Wound of the left foot ) Wound of the left foot erythematous with dry scaling skin. No odor present. Small amount of serosanguineous drainage noted. Periwound intact. Psychiatric: A+Ox3, euthymic affect Results & Data Results & Data ([facility]) Vital Signs (Past 12 Hours) Vital Signs Temp Pulse Resp BP Pulse Ox 04/04/20 07:52 36.4 C L 66 16 123/50 L 97 PG Care Time/CCT Total # of Minutes Spent Total Time Spent with Patient: Total time spent is greater than 50% in coordination of care (as documented) at patient's floor/unit and/or counseling patient: C[place] [address] Subseq Hosp Care Lvl 2 Patient Type Established Medical Decision Making Moderate Complexity Diagnoses Cellulitis L03.116 Laterality: left Site of cellulitis: extremity Site of cellulitis of extremity: lower extremity Hypertension I10 Chronic atrial fibrillation I48.2 Chronic kidney disease, stage III (moderate) N18.3 Sleep apnea G47.30 Cellulitis of foot L03.119 Hypothyroidism E03.9 Anticoagulated on Coumadin Z79.01 (1) Cellulitis Laterality: left Site of cellulitis: extremity Site of cellulitis of extremity: lower extremity Qualified Code(s): L03.116 - Cellulitis of left lower limb
[2020-04-04] MEDS: WARFARIN SOD 5 MG TAB PO SCH (15:27)
[2020-04-04] MEDS: METOPROLOL SUCC 50MG EXT REL TAB PO SCH (21:17)
[2020-04-05] MEDS: LEVOTHYROXINE SODIUM 137 MCG TABLET PO SCH (05:43)
[2020-04-05 08:47] LABS: Hematocrit (blood only) 48.4 % (42-52); Hemoglobin 16.4 g/dL (14.0-18.0); Mean Corpuscular Hemoglobin 31.1 pg (25-34); Mean Corpuscular Volume 91.8 fL (80-100); Mean Platelet Volume 11.4 fL (7.4-10.4); Platelet Count 240 K/uL (130-400); RDW Coefficient of Variation 16.5 % (11.5-14.5); RDW Standard Deviation 55.8 fL (36.4-46.3); Red Blood Count 5.27 M/uL (4.7-6.1); White Blood Count 10.13 K/uL (4.8-10.8)
[2020-04-05] MEDS: allopurinoL 300 MG TAB PO SCH (08:56)
[2020-04-05] MEDS: ADVANCED PROBIOTIC 1250 MG CAPSULE PO SCH (08:56)
[2020-04-05] MEDS: LOSARTAN POTASSIUM 25 MG TAB PO SCH (08:56)
[2020-04-05] MEDS: EUCERIN CR 120 GM JAR EXT SCH (08:57)
[2020-04-05 09:04] LABS: Mean Corpuscular Hgb Conc 33.9 g/dL (32-36)
[2020-04-05 09:05] LABS: BUN Creatinine Ratio 11.8 (10-20); Creatinine Clr Calc Pharmacy 50.6 ml/min; Est GFR (African American) 37.7; Est GFR (Non-African American) 32.5; Potassium 4.4 mmol/L (3.5-5.1)
--- NOTE | 2020-04-05 11:34 | Discharge Summary ---
Date of Service April 05, 2020 Admission HPI Per Admitting Provider Patient is a 74 year old male with PMHx Gout, HTN, Afib, CKD III that presented with complaint of L leg swelling, pain, and foot infection. Patient notes that he was at the wound care clinic earlier this afternoon when it was recommended that he come to the ED for evaluation and possible admission for treatment. Patient notes that his L leg had been swelling for the past 7 years, but that his most recent foot infection started roughly 1 month ago as a small lesion on the sole of his foot. At that time he had treated it with Nexcare, but it had minimally improved the redness and swelling. He notes that earlier this week he was started on Bactrim and Doxycycline which he has been taking twice a day daily, with slight improvement on the ventral portion of his foot, but minimal improvement on the plantar side. He notes that currently his pain is roughly a 2/10 primarily on the sole of his foot. He states he has been walking on it, but because he keeps it wrapped up so tightly he does not really notice discomfort with walking. Otherwise denies any fever, chills, SOB, chest pain, abdominal pain, calf pain. Med Hx: Gout, HTN, Afib, CKD III, Sleep Apnea Surg hx: denies hx of surgeries Fam Hx: Mother breast cx, Father heart failure, Younger brother [place] Social Hx: 5 year pack history quit 50 years ago, Drinks 750ml champagne weekly, denies drug use Subjective on day of discharge: Pt was seen and examined this morning. He feels well. Has been up walking about the room on his affected foot without pain. He has a cane and walker at home for use. Denies any fever, chills or sweats. Pt denies any other acute complaints. Hopeful that he will be able to go home today. Admission Exam Per Admitting Provider Constitutional: well developed and well nourished; no acute distress Eyes: PERRL, conjunctivae normal, anicteric sclerae normal visual hodgson by confrontation ENMT: external ear and nose normal, oropharynx normal Neck: trachea midline, no thyromegaly Respiratory: normal respiratory effort, lungs clear to auscultation Cardiovascular: Rate/Rhythm: + irregularly irregular Heart Sounds: no murmur Vessels: no JVD Extremities: + edema (+1 RLE, 2+ LLE); no calf tenderness Gastrointestinal (Abdomen): normal bowel sounds, soft, nontender, no hepatosplenomegaly Musculoskeletal: Left LE with swelling and erythema to slightly above the mid calf/wood (marked with marker on 03/31/20 at 21:00). Heel of foot with macerated skin and serosanguineous drainage from multiple locations. No obvious ulceration. Psychiatric: A+Ox3, euthymic affect Principal Diagnosis Cellulitis Discharge Exam General: awake, alert, no apparent distress, + obese with BMI of 40.7 Head: Normocephalic, atraumatic ENT: PERRL, EOMI, no pharyngeal exudate, mucous membranes moist Chest: Clear to auscultation, on room air, no adventitious breath sounds Cardiac: Regular rate and rhythm, no murmur, no JVD, normal peripheral pulses, good capillary refill Abdominal: NABS x 4 quadrants, soft, nondistended, nontender to palpation, no rebound or guarding. Extremities: Left foot dressed in kerlix, c/d/i. No pain with palpation. Palpable pulses. +edema present, minimal erythema over the foot. Right leg normal inspection, no peripheral edema or erythema, calfs nontender to palpation. Psych: Normal mood and affect Neuro: AAO x 3, strength intact bilaterally and rated 5/5, no motor deficits, speech is clear, no peripheral sensory deficits Discharge Data Allergies Allergy/AdvReac Type Severity Reaction Status Date / Time hydrochlorothiazide Allergy Unknown "shut down Verified 03/31/20 20:13 kidneys" Consultations 03/31/20 20:43 ED Decision to Admit Stat 04/01/20 17:51 Consult Infectious Diseases Routine Ordered Studies 03/31/20 21:28 US venous doppler LE LT Urgent Hospital Course (1) Cellulitis of foot: -Improving. -Initially was on IV Zosyn until 04/04 when was transitioned to ceftriaxone. Will switch to Bactrim DS x 28 day course. Follow up with PCP and wound clinic within the next week. -Repeat BMP ordered for within 3 days of discharge. -Cr. stable at 1.96 at time of discharge. -Culture from 03/31/20 grew alcaligenes faecalis and staph aureus. -Continue probiotic. -Continue to dress the wound with Aquacel ag daily. -Will need close follow-up with the wound clinic after discharge, pt plans to call to schedule an appointment within 1 week. (2) Chronic atrial fibrillation: -Continue home coumadin with alternating doses of 5 and 7.5 mg. Pt has refill. -INR remains at goal, repeat INR ordered for within 3 days. -Continue home Metoprolol (3) Chronic kidney disease, stage III (moderate): -At baseline, Cr 1.96. (4) Hypertension: - BP remains at goal. -Continue home metoprolol -Continue home Losartan (5) Hypothyroidism: -TSH 2.540. -Continue home Levothyroxine (6) Sleep apnea: - cpap HS (7) Anticoagulated on Coumadin: - Continue alternating doses of 5 mg and 7.5 mg as per med rec Total Time Total Time Spent Total Time Spent (In Minutes): 35 min Discharge Plan Discharge Items Patient Disposition: Home - Home Health Services Reason For Visit: L LEG CELULITIS Discharge Diagnosis: Cellulitis Condition on Discharge: Good Activity: Resume your previous activity Lifting: Gradually increase as tolerated Bathing: No limitations Exercise/Sports: Gradually increase as tolerated Driving/Machine Use: No limitations Weightbearing: Full weightbearing Non-emergency contact: Primary Care Provider Call non-emergency contact if: your symptoms worsen, your pain is worsening and your temperature is above 101 Follow-up/Referrals: Clovis Heredia [Primary Care Provider] - 04/09/20 12:50 pm (YOUR APPOINTMENT WILL BE WITH JACY BRYAN.) Diet: Heart Healthy Ambulatory Orders: Basic Metabolic Panel (Routine) Timeframe: 3 Days Location: Determined by Patient Ordered By: Sarahy Briggs Prothrombin Time INR (Routine) Timeframe: 3 Days Location: Determined by Patient Ordered By: Sarahy Briggs Addtl Attending Provider Instructions: You were admitted to [facility] due to cellulitis and diagnosed with the same. During your stay here you were treated with supportive care, medications and IV antibiotics and your symptoms improved. You were transitioned from IV antibiotics to a tablet. Imaging studies which were completed include a foot xray which was negative for bony infection, and venous Doppler which was negative for blood clot. Medications: Continue taking you medications as prescribed. Take your antibiotics as prescribed for a total of 4 weeks Bactrim PO has been prescribed. You have 10 days left of this antibiotic already at home. An additional 18 days has been sent to your pharmacy to complete the 4 week course. Continue taking coumadin as directed. Your INR at time of discharge was . Repeat labs have been requested in 3 days. Please take your prescription to a lab center to have your blood work checked. Appointments: Follow up with PCP within 1-2 weeks, an appointment has been requested for you. Call to schedule an appointment with the wound clinic within 1 week. Pending Studies at Discharge: Yes Studies:: Blood culture final - no growth do date from 03/31. Stand-Alone Forms: My [facility] [place] Airline, Smoking Cessation Medications and DC Order Prescriptions: New warfarin [Jantoven] 7.5 mg Tablet 7.5 mg PO MoWeFr@1600 Qty: 30 RF: 0 warfarin 5 mg Tablet 5 mg PO SuTuThSa@1600 Qty: 30 RF: 0 Continued allopurinol 300 mg tablet 300 mg PO QAM RF: 0 losartan 25 mg tablet 25 mg PO QAM RF: 0 metoprolol succinate 100 mg Tablet Extended Release 24 Hr 100 mg PO DAILY@1999 Qty: 0 RF: 0 levothyroxine 137 mcg Tablet 137 mcg PO QAM RF: 0 sulfamethoxazole-trimethoprim [Bactrim DS] 800-160 mg tablet 1 tab PO BID Qty: 36 RF: 0 Discontinued warfarin 5 mg tablet See Rx Instructions .ROUTE .COMPLEX RF: 0 doxycycline hyclate 100 mg capsule 100 mg PO BID RF: 0 Discharge Orders: Discharge Order (Routine); Ordered 04/05/20 Ordered By: Sarahy Gambino/Other Patient Handouts: Eating Heart-Healthy Foods Admission Data Admit Date/Time: 04/02/20 07:20 Attending Provider: Kamaljit Castillo Admit Provider: Percy Holder Primary Care Provider: Clovis Heredia Other Providers: Xiang Wiggins ; [facility] ; Julio C Nguyen ; Doretha Thornton ; Danilo Hernandez I. ; Matt Cornejo II ; Cassidy Harris ; Eyal Hunter Coding Level of Care Code D/C Day Management >30 mins Diagnoses Cellulitis of foot L03.119 Chronic atrial fibrillation I48.2 Chronic kidney disease, stage III (moderate) N18.3 Hypertension I10 Hypothyroidism E03.9 Sleep apnea G47.30 Anticoagulated on Coumadin Z79.01
== END 2020-04-05 12:25 | disposition home health service (06) | DRG 603 ==
LOC: 3N 16:22 → ED 16:22 → SUATTDRO 21:44 → 3N 22:22

== ENCOUNTER 2021-10-31 10:08 | Inpatient (IN) ==
[2021-10-31] MEDS ORDERED: CEFEPIME 2,000 MG/20 ML VIAL IV STA (10:34)
--- NOTE | 2021-10-31 10:42 | Emergency Department Note ---
History of Present Illness General Chief complaint: Infection Stated complaint: INFECTED LEFT FOOT Time Seen by Provider: 10/31/21 10:23 History of Present Illness Maximum Pain Intensity: 2 75-year-old male presents to the ED with a chief complaint of a left foot infection. The patient states that he was told to come here after some wound cultures grew out 5 different organisms from his visit to the wound care center last week. He reports that he has to change his dressing regularly because of the continuous weeping of the foot. No additional complaints at this time. Home Medications Medication Instructions Recorded Confirmed Type metoprolol succinate 100 mg 100 mg PO DAILY@1999 ##0 08/07/16 10/25/21 History tablet,extended release 24 hr levothyroxine 137 mcg tablet 137 mcg PO QAM 07/29/18 10/25/21 History allopurinol 300 mg tablet 300 mg PO QAM 01/02/19 10/25/21 History warfarin 5 mg tablet See Rx Instructions PO UD #120 tabs 03/08/21 10/25/21 Rx desoximetasone 0.25 % topical 1 applic topical DAILY #100 grams 05/27/21 10/25/21 Rx ointment Allergies Allergy/AdvReac Type Severity Reaction Status Date / Time sulfamethoxazole Allergy Severe Hives, Verified 10/25/21 13:04 [From skin Sulfamethoxazole-Trimethoprim] sloughing trimethoprim Allergy Severe Hives, Verified 10/25/21 13:04 [From skin Sulfamethoxazole-Trimethoprim] sloughing hydrochlorothiazide Allergy Unknown "shut down Verified 10/25/21 13:04 kidneys" Past Med/Surg History Medical History Atrial fibrillation, chronic BPH (benign prostatic hyperplasia) Cellulitis of left anterior lower leg Chronic atrial fibrillation Chronic kidney disease, stage III (moderate) Chronic ulcer of left foot Gout Hearing deficit History of basal cell carcinoma Hypertension Hypothyroidism Leukocytosis Obesity On anticoagulant therapy Penile hypospadias Prediabetes Renal cyst Sepsis Sleep apnea cpap Venous stasis ulcer Surgical History History of esophagogastroduodenoscopy (EGD) Family History Other Hearing loss No family history of adverse response to anesthesia No family history of bleeding disorder Denies family history of Heart disease Allergies Cancer Hypertension Stroke Asthma Social History Smoking Status: Former smoker Tobacco Type: Cigarettes packs per day: 1; Second Hand Exposure: No; Hx Alcohol Use: Yes Alcohol type: other Alcohol Intake Frequency Comment: 1 bottle of champagne / week Hx Substance Use: No Preferred Language: Panamanian Communication Ability: Effective Visual Impairment: Limited Hearing Ability: Hard of Hearing Buckle Strap Puncher Required: No Beliefs That Will Affect Care: None marital status: Current Living Situation: Spouse current occupational status: retired How many Children do You have: 4 How many Children do You have Comment: 3 local, pt independent with care. Feels Safe at Home: Yes Assistive Devices: None Review of Systems A total of 10 systems reviewed and were otherwise negative Physical Exam Vital Signs Vital Signs - 24 hr 10/31/21 10:15 10/31/21 11:30 10/31/21 11:30 Temperature 36.6 C Temperature Source Oral Pulse Rate 78 Pulse Rate [Right Finger] 67 Respiratory Rate 22 12 Respiratory Effort / Characteristics Non-Labored Spontaneous Non-Labored Respiratory Depth Normal Normal Blood Pressure 127/84 Blood Pressure [Right Arm] 130/77 Blood Pressure Mean 98 Blood Pressure Mean [Right Arm] 94 Pulse Oximetry 94 97 97 Oxygen Delivery Method Room Air Room Air Room Air Sepsis Recent Fever Within 48 Hours No Sepsis New/Unexplained Change in Mental Status No Sepsis Action Taken by Nursing No Action Required 10/31/21 12:03 Temperature Temperature Source Pulse Rate Pulse Rate [Right Finger] 65 Respiratory Rate 20 Respiratory Effort / Characteristics Non-Labored Respiratory Depth Normal Blood Pressure Blood Pressure [Right Arm] 130/77 Blood Pressure Mean Blood Pressure Mean [Right Arm] 94 Pulse Oximetry 99 Oxygen Delivery Method Room Air Sepsis Recent Fever Within 48 Hours Sepsis New/Unexplained Change in Mental Status Sepsis Action Taken by Nursing CONSTITUTIONAL/VITAL SIGNS: Reviewed / noted above. GENERAL: Non-toxic in appearance. INTEGUMENTARY: Warm, dry, and [place]. HEAD: Normocephalic. EYES: without scleral icterus or trauma. ENT/OROPHARYNX: clear and moist. RESPIRATORY: No increased work of breathing. CARDIOVASCULAR: Regular rate and rhythm. EXTREMITIES: Warm and well perfused. The patient has an erythematous left foot with foul-smelling discharge on the dressings that were soaking wet. No clear open wounds. BACK: No CVA tenderness. NEUROLOGICAL: Intact without focal deficits. PSYCHIATRIC: normal affect. MUSCULOSKELETAL: Normally developed with good muscle tone. TRIAGE NURSING DOCUMENTATION REVIEWED. Course Administered Medications Daptomycin 675 mg/ Syringe 13.5 mls @ 6.75 mls/min IV Q24H ROYA; Protocol Stop: 11/02/21 10:44 Last Admin: 10/31/21 12:00 Dose: 6.75 mls/min Documented By: DEVI Discontinued Medications Cefepime HCl (Maxipime) 2,000 mg in 20 mls @ 5 mls/min IV NOW STA; Protocol Stop: 10/31/21 10:37 Last Admin: 10/31/21 11:27 Dose: 5 mls/min Documented By: DEVI Medical Decision Making Differential Diagnosis Cellulitis, abscess, MRSA infection, DVT, necrotizing fasciitis, dermatitis, drug eruption, allergic reaction, as well as other pathologies. Medical Records Attestation: I reviewed the patient's medical records. Home Medications Current Medication List: was personally reviewed by me Laboratory Data Attestation: I reviewed the patient's lab results. Result diagrams: 10/31/21 10:40 10/31/21 10:40 Lab Results 10/31/21 10/31/21 10/31/21 Range/Units 10:40 10:40 10:40 WBC 10.28 (4.8-10.8) K/ul RBC 4.99 (4.63-6.08) M/uL Hgb 15.8 (14.0-18.0) g/dl Hct 47.1 (40.1-51.0) % MCV 94.4 (80.0-100.0) fL MCH 31.7 (25.0-34.0) pg MCHC 33.5 (32.0-36.0) g/dL RDW Std Deviation 52.7 H (36.4-46.3) fL RDW Coeff of [place] 15.1 H (11.5-14.5) % Plt Count 211 (130-400) K/uL MPV 11.4 (9.4-12.4) fL Immature Gran % (Auto) 0.6 % Neut % (Auto) 83.3 % Lymph % (Auto) 7.1 % [place] % (Auto) 4.5 % Eos % (Auto) 3.9 % Baso % (Auto) 0.6 % Neut # (Auto) 8.57 H (1.4-6.5) K/uL Lymph # (Auto) 0.73 L (1.2-3.4) K/uL [place] # (Auto) 0.46 (0.24-0.82) K/uL Eos # (Auto) 0.40 (0-0.50) K/uL Baso # (Auto) 0.06 (0-0.2) K/uL Immature Gran # (Auto) 0.06 H (0.00-0.02) K/uL PT 27.0 H (9.0-12.0) Seconds INR 2.7 H (0.9-1.1) APTT 49.6 H* (21.0-31.0) Seconds PTT Ratio 1.8 Sodium 135 L (136-145) mmol/L Potassium 4.0 (3.5-5.1) mmol/L Chloride 107 (98-107) mmol/L Carbon Dioxide 18 L (21-32) mmol/L Anion Gap 10 (3-11) BUN 39 H (6-23) mg/dl Creatinine 2.04 H (0.6-1.4) mg/dl Est Cr Clr Drug Dosing 48.3 ml/min Est GFR ( Amer) 35.6 ml/min Est GFR (Non-Af Amer) 30.7 ml/min BUN/Creatinine Ratio 19.1 (10-20) Glucose 93 (70-99(Fasting)) mg/dl Lactate (0.4-2.0) mmol/L Calcium 8.6 (8.5-10.1) mg/dl Total Bilirubin 0.7 (0.2-1.0) mg/dl AST 18 (13-39) U/L ALT 15 (7-52) U/L Alkaline Phosphatase 64 (34-104) U/L Total Protein 7.3 (6.0-8.3) gm/dl Albumin 3.3 L (3.4-5.0) gm/dl Globulin 4.0 (2.5-4.0) gm/dl Albumin/Globulin Ratio 0.8 L (0.9-2) 10/31/21 Range/Units 11:20 WBC (4.8-10.8) K/ul RBC (4.63-6.08) M/uL Hgb (14.0-18.0) g/dl Hct (40.1-51.0) % MCV (80.0-100.0) fL MCH (25.0-34.0) pg MCHC (32.0-36.0) g/dL RDW Std Deviation (36.4-46.3) fL RDW Coeff of [place] (11.5-14.5) % Plt Count (130-400) K/uL MPV (9.4-12.4) fL Immature Gran % (Auto) % Neut % (Auto) % Lymph % (Auto) % [place] % (Auto) % Eos % (Auto) % Baso % (Auto) % Neut # (Auto) (1.4-6.5) K/uL Lymph # (Auto) (1.2-3.4) K/uL [place] # (Auto) (0.24-0.82) K/uL Eos # (Auto) (0-0.50) K/uL Baso # (Auto) (0-0.2) K/uL Immature Gran # (Auto) (0.00-0.02) K/uL PT (9.0-12.0) Seconds INR (0.9-1.1) APTT (21.0-31.0) Seconds PTT Ratio Sodium (136-145) mmol/L Potassium (3.5-5.1) mmol/L Chloride (98-107) mmol/L Carbon Dioxide (21-32) mmol/L Anion Gap (3-11) BUN (6-23) mg/dl Creatinine (0.6-1.4) mg/dl Est Cr Clr Drug Dosing ml/min Est GFR ( Amer) ml/min Est GFR (Non-Af Amer) ml/min BUN/Creatinine Ratio (10-20) Glucose (70-99(Fasting)) mg/dl Lactate 1.7 (0.4-2.0) mmol/L Calcium (8.5-10.1) mg/dl Total Bilirubin (0.2-1.0) mg/dl AST (13-39) U/L ALT (7-52) U/L Alkaline Phosphatase (34-104) U/L Total Protein (6.0-8.3) gm/dl Albumin (3.4-5.0) gm/dl Globulin (2.5-4.0) gm/dl Albumin/Globulin Ratio (0.9-2) Imaging Data Radiologist's Impression: Foot X-Ray 10/31/21 10:34 XR foot LT min 3V routine HISTORY: 75 years-old Male infection chronic left foot pain with soft tissue infection COMPARISON: Foot radiographs 03/31/2020 TECHNIQUE: 3 views of the left foot FINDINGS: Healed chronic fracture of the fourth metatarsal. Limited study secondary to positioning. Multifocal osteoarthritis redemonstrated, severe within the midfoot. No acute fracture, dislocation or osseous erosion. There is diffuse soft tissue swelling, most pronounced dorsally. Large plantar enthesophyte of the calcaneus. Arterial calcifications. IMPRESSION: 1. Diffuse soft tissue swelling without acute osseous abnormality. 2. Severe degeneration of the midfoot redemonstrated. 3. Healed chronic fracture of the fourth metatarsal. ACT 112: Negative or not required by law. The above report was generated using voice recognition software. It may contain grammatical, syntax or spelling errors. Electronically signed by: Peter Castillo M.D. 10/31/2021 11:30 AM MDM Narrative 75-year-old male presents with a chief complaint of left foot infection with positive cultures from a week ago showing 5 different organisms. The patient was started on cefepime and daptomycin. X-ray does not show any evidence of osteomyelitis. Lactate level was normal. CBC and chemistry panel show some chronic renal insufficiency but otherwise unremarkable. The patient will be seen by the hospitalist for further evaluation and care. Impression & Plan Cellulitis of left foot Discharge Plan Visit Data Chief Complaint: Infection Stated Complaint: INFECTED LEFT FOOT ED Provider: Rico Chávez Discharge Problem: Cellulitis of left foot Patient Disposition: Being Evaluated by Hospitalist Forms Stand Alone Forms: My [employer] Prescriptions Prescriptions: No Action allopurinol 300 mg tablet 300 mg PO QAM warfarin 5 mg tablet See Rx Instructions PO UD Qty: 120 1RF Rx Instructions: 7.5mg q M/W/F, 5mg x 4 days per [facility] PO use as directed; metoprolol succinate 100 mg Tablet Extended Release 24 Hr 100 mg PO DAILY@1999 Qty: 0 desoximetasone 0.25 % ointment 1 applic topical DAILY Qty: 100 0RF Rx Instructions: Apply to areas of the left leg every other day as directed. levothyroxine 137 mcg Tablet 137 mcg PO QAM Referrals Referrals: Clovis Heredia [Primary Care Provider] -
[2021-10-31] MEDS ORDERED: DAPTOmycin 675 MG in SYRINGE 0 ML IV SCH (10:45)
[2021-10-31 10:58] LABS: Basophils # (auto) 0.06 K/uL (0-0.2); Basophils % (auto) 0.6 %; Eosinophils % (auto) 3.9 %; Hematocrit (blood only) 47.1 % (40.1-51.0); Hemoglobin 15.8 g/dl (14.0-18.0); Immature Granulocytes # (auto) 0.06 K/uL (0.00-0.02); Immature Granulocytes % (auto) 0.6 %; Lymphocytes # (auto) 0.73 K/uL (1.2-3.4); Lymphocytes % (auto) 7.1 %; Mean Corpuscular Hemoglobin 31.7 pg (25.0-34.0); Mean Corpuscular Hgb Conc 33.5 g/dL (32.0-36.0); Mean Corpuscular Volume 94.4 fL (80.0-100.0); Mean Platelet Volume 11.4 fL (9.4-12.4); Monocytes # (auto) 0.46 K/uL (0.24-0.82); Monocytes % (auto) 4.5 %; Neutrophils # (auto) 8.57 K/uL (1.4-6.5); Neutrophils % (auto) 83.3 %; Platelet Count 211 K/uL (130-400); RDW Coefficient of Variation 15.1 % (11.5-14.5); RDW Standard Deviation 52.7 fL (36.4-46.3); Red Blood Count 4.99 M/uL (4.63-6.08); White Blood Count 10.28 K/ul (4.8-10.8)
[2021-10-31 11:26] LABS: INR 2.7 (0.9-1.1); Partial Thromboplastin Ratio 1.8
--- NOTE | 2021-10-31 11:31 | XRay Report ---
XR foot LT min 3V routine HISTORY: 75 years-old Male infection chronic left foot pain with soft tissue infection COMPARISON: Foot radiographs 03/31/2020 TECHNIQUE: 3 views of the left foot FINDINGS: Healed chronic fracture of the fourth metatarsal. Limited study secondary to positioning. Multifocal osteoarthritis redemonstrated, severe within the midfoot. No acute fracture, dislocation or osseous e rosion. There is diffuse soft tissue swelling, most pronounced dorsally. Large plantar enthesophyte o f the calcaneus. Arterial calcifications. IMPRESSION: 1. Diffuse soft tissue swelling without acute osseous abnormality. 2. Severe degeneration of the midfoot redemonstrated. 3. Healed chronic fracture of the fourth metatarsal. ACT 112: Negative or not required by law. The above report was generated using voice recognition software. It may contain grammatical, syntax o r spelling errors. Electronically signed by: Peter Castillo M.D. 10/31/2021 11:30 AM
[2021-10-31 11:38] LABS: Partial Thromboplastin Time 49.6 Seconds (21.0-31.0)
[2021-10-31 11:39] LABS: Albumin Globulin Ratio 0.8 (0.9-2); Albumin Level 3.3 gm/dl (3.4-5.0); BUN Creatinine Ratio 19.1 (10-20); Bilirubin,Total 0.7 mg/dl (0.2-1.0); Calcium 8.6 mg/dl (8.5-10.1); Creatinine Clr Calc Pharmacy 48.3 ml/min; Est GFR (African American) 35.6 ml/min; Est GFR (Non-African American) 30.7 ml/min; Total Protein 7.3 gm/dl (6.0-8.3)
[2021-10-31] MEDS ORDERED: GLUCOSE 40% GEL 15 GM TUBE PO PRN (12:35)
[2021-10-31] MEDS ORDERED: CARBOHYDRATES FOR HYPOGLYCEMIA PO PRN (12:35)
[2021-10-31] MEDS ORDERED: GLUCAGON FOR INJ 1 MG VIAL SQ PRN (12:35)
[2021-10-31] MEDS ORDERED: DEXTROSE 50% 50 ML SYRINGE IV PRN (12:35)
[2021-10-31] MEDS ORDERED: GLUCOSE 10 TAB/TUBE PO PRN (12:35)
--- NOTE | 2021-10-31 12:54 | History & Physical Report ---
Date of Service October 31, 2021 Assessment & Plan (1) Open wound of foot: Plan: Patient presents as above with non purulent drainage associated surrounding erythema to the toes and midfoot. Sloughing of skin noted however with debridement done recently. - Admit to medical telemetry obtain MRI of the left foot with and without contrast to evaluate for osteo - Cultures as above - Continue daptomycin and Cefepime - Blood cultures pending - WCN consult placed for evaluation and dressings - Will leave open to air at this time as wound is moist - PT/OT consultation - Chronic and ongoing since 11/13- patient states that it never completely healed - CRP, ESR, PCT pending (2) Cellulitis of left foot: Plan: As above (3) DALE (acute kidney injury): Plan: MARCO A II on CKD III- Baseline Cr 1.7 - 1.9 - HCO3 18 - Follow with ABX and JONEL administration - Renal dose medications - Avoid other nephrotoxic medications as able - Was recently started on ARB Losartan 50mg PO daily by PCP 10/24/21- hold - Renal ultrasound obtained 10/25/21 as outpatient (4) Chronic atrial fibrillation: Plan: Rate controlled with Metoprolol - On Warfarin- continue INR 2.7 (5) Venous stasis dermatitis: Plan: Chronic with history of venous ablation - SCDS as able - Tubi patent litigation associate vs. compression hose as able (6) Sleep apnea: Plan: Continue CPAP while in house - Patietn states he on 4 CPAP at home - (7) Hypertension: Plan: Continue with Metoprolol 100mg daily - HOLD Losartan (8) Chronic kidney disease, stage III (moderate): Plan: Follow (9) Diabetes: Plan: Carries diagnosis of pre-diabetes- with recorded HGB A1C 05/17 as 5.8 - follow with dextrose checks and hypoglycemic protocol History of Present Illness Primary Care Provider: Clovis Heredia 75 YOM with past medical history of: Obesity, Hypothyroidism, Afib (on Warfarin), CKD, HTN, Gout, PFO, DERREK (CPAP 4cm H20 at home), Great Saphenous Vein ablation, DMII (not on any meds), chronic lymphedema and dermatitis (desoximetasone 0.25%). Patient comes in to the EMD today following positive left foot wound cultures done on 10/26/21. Patient states that on Sunday he noticed his foot getting more red/painful, and draining clear fluid. He went to the wound care clinic- he has been following with dermatology for dermatitis of the left foot, it was measured 23 x 18 x 0.2 cm and cultures were obtained, the wound was debrided and with dressing of Aquacel AG to change on daily basis. His wound cultures were positive for Pseudomonas, Group B beta strep, Alcaligenes Faecalis, and Staph Aureus MRSA. He reports that he has been wearing his boot and dressing and it became saturated today and is with pain with ambulation. He is able to limp on his foot and does not use an ambulation device. He denies fevers or chills at home. He had blood cultures obtained and was started on Cefepime and Daptomycin in the EMD. Reveiw of his sensitivities, will continue with Cefepime and Daptomycin. Will provide LR overnight for his DALE. Will obtain MRI of his foot for evaluation of Osteomyelitis. Await blood culture results. Further consultations and studies when above information is obtained. COVID Test on admisssion is: NEGATIVE Allergies Allergy/AdvReac Type Severity Reaction Status Date / Time sulfamethoxazole Allergy Severe Hives, Verified 10/31/21 14:56 [From skin Sulfamethoxazole-Trimethoprim] sloughing trimethoprim Allergy Severe Hives, Verified 10/31/21 14:56 [From skin Sulfamethoxazole-Trimethoprim] sloughing hydrochlorothiazide Allergy Unknown "shut down Verified 10/31/21 14:56 kidneys" Home Medications Medication Instructions Recorded Confirmed Type metoprolol succinate 100 mg 100 mg PO HS ##0 08/07/16 10/31/21 History tablet,extended release 24 hr allopurinol 300 mg tablet 300 mg PO QAM 01/02/19 10/31/21 History warfarin 5 mg tablet See Rx Instructions PO UD #120 tabs 03/08/21 10/31/21 Rx doxycycline hyclate 100 mg tablet 100 mg PO BID 10/31/21 10/31/21 History levothyroxine 150 mcg tablet 150 mcg PO QAM 10/31/21 10/31/21 History losartan 50 mg tablet 50 mg PO DAILY 10/31/21 10/31/21 History Past Med/Surg History Medical History Atrial fibrillation, chronic BPH (benign prostatic hyperplasia) Cellulitis of left anterior lower leg Chronic atrial fibrillation Chronic kidney disease, stage III (moderate) Chronic ulcer of left foot Gout Hearing deficit History of basal cell carcinoma Hypertension Hypothyroidism Leukocytosis Obesity On anticoagulant therapy Penile hypospadias Prediabetes Renal cyst Sepsis Sleep apnea cpap Venous stasis ulcer Surgical History History of esophagogastroduodenoscopy (EGD) Family History Other Hearing loss No family history of adverse response to anesthesia No family history of bleeding disorder Denies family history of Heart disease Allergies Cancer Hypertension Stroke Asthma Social History Smoking Status: Former smoker Tobacco Type: Cigarettes packs per day: 1; Second Hand Exposure: No; Hx Alcohol Use: Yes Alcohol type: other Alcohol Intake Frequency Comment: 1 bottle of champagne / week Hx Substance Use: No Preferred Language: Ukrainian Communication Ability: Effective Visual Impairment: Limited Hearing Ability: Hard of Hearing Director Of Restaurants Required: No Beliefs That Will Affect Care: None marital status: Current Living Situation: Spouse current occupational status: retired How many Children do You have: 4 How many Children do You have Comment: 3 local, pt independent with care. Other Information That Helps Us Care for You: No Feels Safe at Home: Yes Safety Concerns: Feels Safe At This Time Assistive Devices: None Review of Systems Review of Systems: REVIEW OF SYSTEMS: Constitutional: No fever, sweats or chills Eyes: No diplopia, no worsening or blurred vision ENT: normal hearing, no trouble swallowing Respiratory: No cough, sputum, dyspnea at rest or on exertion Cardiovascular: No chest pain, tightness or palpitations Abdomen: No pain, nausea, vomiting, diarrhea or constipation Musculoskeletal: (+) left foot pain, swelling, and drainage, Neurologic: No weakness, numbness/tingling, or balance problems Psychiatric: No anxiety or depression Skin: No rash or itch Physical Exam Physical Exam: PHYSICAL EXAM: General: awake, alert, no apparent distress Head: Normocephalic, atraumatic ENT: PERRL, EOMI, no pharyngeal exudate, mucous membranes moist Neuro: AAO x 3, speech clear and appropriate, strength intact bilaterally 5/5, sensation intact and equal all extremities and dermatomes, no pronator drift Chest: equal rise and fall of the chest, no accessory muscle use, no heaves or thrills, Clear to auscultation, on room air, Cardiac: irregular rate and rhythm, telemetry reviewed- afib, skin warm dry, +3 edema to left foot, +2 edema to right foot both extending to mid calf GI: NABS x 4 quadrants, soft, nontender to palpation, no rebound, guarding or tenderness : Spontaneously voiding, no pain, no CVA tenderness, Psych: Normal mood and affect Skin: (+) sloughing of skin and drainage left foot, malodorous, pain with palpation of lateral foot and toes. Does remain with ability to flex and extend toes. Results & Data Results & Data ([facility]) Vital Signs (Past 12 Hours) Vital Signs Temp Pulse Pulse Resp BP BP Pulse Ox 10/31/21 12:03 65 20 130/77 99 10/31/21 11:30 97 10/31/21 11:30 67 12 130/77 97 10/31/21 10:15 36.6 C 78 22 127/84 94 O2 Del Method 10/31/21 12:03 Room Air 10/31/21 11:30 Room Air 10/31/21 11:30 Room Air 10/31/21 10:15 Room Air Laboratory Results Abnormal lab results 10/31/21 10/31/21 10/31/21 Range/Units 10:40 10:40 10:40 RDW Std Deviation 52.7 H (36.4-46.3) fL RDW Coeff of [place] 15.1 H (11.5-14.5) % Neut # (Auto) 8.57 H (1.4-6.5) K/uL Lymph # (Auto) 0.73 L (1.2-3.4) K/uL Immature Gran # (Auto) 0.06 H (0.00-0.02) K/uL PT 27.0 H (9.0-12.0) Seconds INR 2.7 H (0.9-1.1) APTT 49.6 H* (21.0-31.0) Seconds Sodium 135 L (136-145) mmol/L Carbon Dioxide 18 L (21-32) mmol/L BUN 39 H (6-23) mg/dl Creatinine 2.04 H (0.6-1.4) mg/dl Albumin 3.3 L (3.4-5.0) gm/dl Albumin/Globulin Ratio 0.8 L (0.9-2) Diagnostic Findings Foot X-Ray 10/31/21 10:34 XR foot LT min 3V routine HISTORY: 75 years-old Male infection chronic left foot pain with soft tissue infection COMPARISON: Foot radiographs 03/31/2020 TECHNIQUE: 3 views of the left foot FINDINGS: Healed chronic fracture of the fourth metatarsal. Limited study secondary to positioning. Multifocal osteoarthritis redemonstrated, severe within the midfoot. No acute fracture, dislocation or osseous erosion. There is diffuse soft tissue swelling, most pronounced dorsally. Large plantar enthesophyte of the calcaneus. Arterial calcifications. IMPRESSION: 1. Diffuse soft tissue swelling without acute osseous abnormality. 2. Severe degeneration of the midfoot redemonstrated. 3. Healed chronic fracture of the fourth metatarsal. ACT 112: Negative or not required by law. The above report was generated using voice recognition software. It may contain grammatical, syntax or spelling errors. Electronically signed by: Peter Castillo M.D. 10/31/2021 11:30 AM Medications Administered Home Medications metoprolol succinate 100 mg tablet,extended release 24 hr 100 mg PO DAILY@1999 ##0 08/07/16 [History Confirmed 10/25/21] levothyroxine 137 mcg tablet 137 mcg PO QAM 07/29/18 [History Confirmed 10/25/21] allopurinol 300 mg tablet 300 mg PO QAM 01/02/19 [History Confirmed 10/25/21] warfarin 5 mg tablet See Rx Instructions PO UD #120 tabs 03/08/21 [Rx Confirmed 10/25/21] desoximetasone 0.25 % topical ointment 1 applic topical DAILY #100 grams 05/27/21 [Rx Confirmed 10/25/21] Active Medications Dextrose (Dextrose 50% 50 Ml Syringe) 25 - 50 ml IV UD PRN; Protocol PRN Reason: Hypoglycemia Protocol Stop: 11/30/21 12:34 Glucagon (Glucagon For Inj 1 Mg Vial) 1 mg SQ UD PRN; Protocol PRN Reason: Hypoglycemia Protocol Stop: 11/30/21 12:34 Glucose (Glucose 40% Gel 15 Gm Tube) 15 - 30 gm PO UD PRN; Protocol PRN Reason: Hypoglycemia Protocol Stop: 11/30/21 12:34 Glucose (Glucose 10 Tab/Tube) 4 - 8 tab PO UD PRN; Protocol PRN Reason: Hypoglycemia Treatment Stop: 11/30/21 12:34 Daptomycin 675 mg/ Syringe 13.5 mls @ 6.75 mls/min IV Q24H ROYA; Protocol Stop: 11/02/21 10:44 Last Admin: 10/31/21 12:00 Dose: 6.75 mls/min Miscellaneous (Carbohydrates For Hypoglycemia ) 15 - 30 gm PO UD PRN PRN Reason: Hypoglycemia Protocol Stop: 11/30/21 12:34 Daptomycin 675 mg/ Syringe 13.5 mls @ 6.75 mls/min IV Q24H ROYA; Protocol Stop: 11/02/21 10:44 Last Admin: 10/31/21 12:00 Dose: 6.75 mls/min Documented By: DEVI Discontinued Medications Cefepime HCl (Maxipime) 2,000 mg in 20 mls @ 5 mls/min IV NOW STA; Protocol Stop: 10/31/21 10:37 Last Admin: 10/31/21 11:27 Dose: 5 mls/min Documented By: DEVI ECG Additional Comments: Atrial fibrillation Right bundle branch block Inferior infarct , age undetermined T wave abnormality, consider lateral ischemia Abnormal ECG When compared with ECG of 31-MAR-2020 19:31, Inferior infarct is now Present T wave inversion now evident in Lateral leads Code Status & VTE Plan Code Status CODE: FULL VTE: SCDS, Warfarin VTE Prophylaxis Plan VTE Prophylaxis will be ordered: Yes Supervising Physician Co-Signing Physician Notes Discussed case with GAS SINGER, agree with his note above. Patient has a multi organism infection of his foot. Agree with broad-spectrum antibiotics as ordered, currently ordered cefepime and Dapto. Plan check MRI to rule out osteomyelitis, consider surgical intervention depending on results. PG Care Time/CCT Total # of Minutes Spent Total Time Spent with Patient: Total time spent is greater than 50% in coordination of care (as documented) at patient's floor/unit and/or counseling patient: Coding Level of Care Code 55057 Initial Inpt Care Lvl 3 Diagnoses Open wound of foot S91.309A Cellulitis of left foot L03.116 DALE (acute kidney injury) N17.9 Chronic atrial fibrillation I48.2 Venous stasis dermatitis I87.2 Sleep apnea G47.30 Hypertension I10 Chronic kidney disease, stage III (moderate) N18.3 Diabetes E11.9
--- NOTE | 2021-10-31 17:33 | Magnetic Resonance Report ---
MR foot LT w/o con CLINICAL HISTORY: Chronic left foot ulcer with the patient history of gout. Fluid seeping for 2 week s.. COMPARISON: Standard radiographs from 10/31/2021 TECHNIQUE: Multiplanar multisequence images of the left foot were performed without contrast. FINDINGS: This is a limited examination as the patient refused further imaging after only 2 sequences . Osseous structures: Homogeneous marrow signal is seen throughout the imaged bones of the foot. There is no evidence for marrow edema or marrow replacement. No acute osseous pathology is seen. Old, heale d stress fractures present involving the fourth metatarsal shaft. Joints: Joint space narrowing and degenerative changes are seen at the tarsometatarsal joints. The re maining imaged joint spaces are intact. There are no joint effusions. Tendons: The extensor tendons along the dorsum of the foot and the flexor tendons along the plantar a spect of the foot are intact. Ligaments: The imaged ligaments of the foot are intact. Soft tissues: There is diffuse subcutaneous edema along the dorsum of the foot. No focal fluid collec tions can be identified. IMPRESSION: 1. Limited examination as the patient refused additional imaging after only 2 sequences. 2. No definite MR evidence for osteomyelitis or acute osseous pathology. 3. Subcutaneous swelling along the dorsum of the foot. ACT 112: Negative or not required by law. Electronically signed by: Jevon Kelley M.D. 10/31/2021 5:31 PM
[2021-10-31] MEDS ORDERED: ONDANSETRON INJ 2 MG/ML 2 ML VIAL IV PRN (17:39)
[2021-10-31] MEDS ORDERED: ACETAMINOPHEN 325 MG TAB PO PRN (17:39)
[2021-10-31] MEDS: LACTATED RINGER'S 1,000 ML IV SCH (18:38)
[2021-10-31] MEDS: CEFEPIME 2,000 MG in SYRINGE 0 ML IV SCH (21:23)
[2021-10-31] MEDS: METOPROLOL SUCC 50MG EXT REL TAB PO SCH (21:26)
[2021-11-01] MEDS: LACTATED RINGER'S 1,000 ML IV SCH ×2 (04:08→13:58)
--- NOTE | 2021-11-01 05:55 | Electrocardiogram Report ---
Test Reason : Blood Pressure : / mmHG Vent. Rate : 066 BPM Atrial Rate : 125 BPM P-R Int : 000 ms QRS Dur : 154 ms QT Int : 432 ms P-R-T Axes : 000 -03 -23 degrees QTc Int : 452 ms Atrial fibrillation Right bundle branch block Inferior infarct , age undetermined T wave abnormality, consider anterolateral ischemia Abnormal ECG When compared with ECG of 31-MAR-2020 19:31, Inferior infarct is now Present T wave inversion now evident in Anterolateral leads Confirmed by Ozzy Shi ([id number]) on 11/01/2021 5:55:00 AM Referred By: Confirmed By:Ozzy Shi
[2021-11-01] MEDS: LEVOTHYROXINE SODIUM 150 MCG TABLET PO SCH (06:13)
[2021-11-01] MEDS: CEFEPIME 2,000 MG in SYRINGE 0 ML IV SCH ×2 (08:15→20:04)
[2021-11-01] MEDS: DAPTOmycin 675 MG in SYRINGE 0 ML IV SCH (08:15)
[2021-11-01] MEDS: allopurinoL 300 MG TAB PO SCH (08:16)
[2021-11-01 08:43] LABS: INR 2.5 (0.9-1.1); Prothrombin Time 25.2 Seconds (9.0-12.0)
[2021-11-01 08:47] LABS: Hematocrit (blood only) 46.6 % (40.1-51.0); Hemoglobin 15.7 g/dl (14.0-18.0); Mean Corpuscular Hemoglobin 31.7 pg (25.0-34.0); Mean Corpuscular Hgb Conc 33.7 g/dL (32.0-36.0); Mean Platelet Volume 11.4 fL (9.4-12.4); Platelet Count 177 K/uL (130-400); RDW Coefficient of Variation 15.1 % (11.5-14.5); RDW Standard Deviation 52.4 fL (36.4-46.3); Red Blood Count 4.96 M/uL (4.63-6.08); White Blood Count 13.08 K/ul (4.8-10.8)
[2021-11-01 09:01] LABS: BUN Creatinine Ratio 16.6 (10-20); C Reactive Protein 8.09 mg/dl (0-0.5); Calcium 8.3 mg/dl (8.5-10.1); Creatinine Clr Calc Pharmacy 52.7 ml/min; Est GFR (African American) 39.6 ml/min; Est GFR (Non-African American) 34.2 ml/min; Magnesium 1.7 mg/dl (1.7-2.4); Potassium 4.6 mmol/L (3.5-5.1)
[2021-11-01 09:15] LABS: Basophils # (auto) 0.06 K/uL (0-0.2); Basophils % (auto) 0.5 %; Eosinophils # (auto) 0.28 K/uL (0-0.50); Eosinophils % (auto) 2.1 %; Immature Granulocytes # (auto) 0.07 K/uL (0.00-0.02); Immature Granulocytes % (auto) 0.5 %; Lymphocytes # (auto) 0.74 K/uL (1.2-3.4); Lymphocytes % (auto) 5.7 %; Monocytes # (auto) 0.69 K/uL (0.24-0.82); Monocytes % (auto) 5.3 %; Neutrophils # (auto) 11.24 K/uL (1.4-6.5); Neutrophils % (auto) 85.9 %
--- NOTE | 2021-11-01 15:11 | Hospitalist Progress Note ---
Date of Service November 01, 2021 Assessment & Plan (1) Diabetic foot infection: Plan: Patient presents as above with non purulent drainage associated surrounding erythema to the toes and midfoot. Sloughing of skin noted however with debridement done recently. - MRI foot did not show any evidence of osteomyelitis - Cultures growing polymicrobials - Continue daptomycin and Cefepime - Blood cultures pending - WCN consult placed for evaluation and dressings -Consult ID - PT/OT consultation - Chronic and ongoing since 11/13- patient states that it never completely healed - Markers of inflammation elevated, -continue to monitor (2) Open wound of foot: Plan: as above (3) Cellulitis of left foot: Plan: As above (4) DALE (acute kidney injury): Plan: MARCO A II on CKD III - Follow with ABX and JONEL administration - Renal dose medications - Avoid other nephrotoxic medications as able - Was recently started on ARB Losartan 50mg PO daily by PCP 10/24/21- hold - Renal ultrasound obtained 10/25/21 as outpatient (5) Chronic atrial fibrillation: Plan: Rate controlled with Metoprolol - On Warfarin- continue INR 2.7 (6) Venous stasis dermatitis: Plan: Chronic with history of venous ablation - SCDS as able - Tubi cis coordinator vs. compression hose as able (7) Sleep apnea: Plan: Continue CPAP while in house - Patietn states he on 4 CPAP at home - (8) Hypertension: Plan: Continue with Metoprolol 100mg daily - HOLD Losartan (9) Chronic kidney disease, stage III (moderate): Plan: Follow (10) Diabetes: Plan: Carries diagnosis of pre-diabetes- with recorded HGB A1C 05/17 as 5.8 - follow with dextrose checks and hypoglycemic protocol Plan continue hospitalization Admission and Anticipated Discharge Date Admission Date: October 31, 2021 Subjective patient seen and examined, no new complaints, wound has been dressed Review of Systems Review of Systems: All systems reviewed are negative, apart from the ones contained in the history. Physical Exam Physical Exam: The patient is awake, alert and oriented 3, well developed and well nourished, normocephalic and atraumatic, lying in bed and in no acute d istress. HEENT--PERRL, EOMI, mucous membranes and oropharynx mildly dry Neck--supple. No JVD. No bruits. Thyroid normal, trachea midline, no adenopathy. Heart--normal S1 and S2. No murmurs, rubs or gallops. Lungs--clear bilaterally, no respiratory distress, no accessory muscle use. Abdomen--normal bowel sounds and soft. Mild epigastric and left sided abdominal pain Extremities--left foot in bandage Dermatologic--normal skin turgor, normal color, no abnormal lymph nodes, no rash. Neurologic--cranial nerves II through XII grossly intact. Rheumatologic--normal range of motion. Psychiatric--normal affect. Results & Data Results & Data ([facility]) Vital Signs (Past 12 Hours) Vital Signs Temp Pulse Resp BP Pulse Ox O2 Del Method 11/01/21 09:37 Room Air 11/01/21 06:16 99.0 F 97 H 16 119/74 94 Room Air PG Care Time/CCT Total # of Minutes Spent Total Time Spent with Patient: Total time spent is greater than 50% in coordination of care (as documented) at patient's floor/unit and/or counseling patient: Coding Level of Care Code 46285 Subseq Hosp Care Lvl 2 Diagnoses Diabetic foot infection E11.628; L08.9 Open wound of foot S91.309A Cellulitis of left foot L03.116 DALE (acute kidney injury) N17.9 Chronic atrial fibrillation I48.2 Venous stasis dermatitis I87.2 Sleep apnea G47.30 Hypertension I10 Chronic kidney disease, stage III (moderate) N18.3 Diabetes E11.9 Time Spent (min) 35
[2021-11-01] MEDS: METOPROLOL SUCC 50MG EXT REL TAB PO SCH (20:00)
[2021-11-02] MEDS: LACTATED RINGER'S 1,000 ML IV SCH ×3 (00:52→21:44)
[2021-11-02] MEDS: LEVOTHYROXINE SODIUM 150 MCG TABLET PO SCH (05:55)
[2021-11-02] MEDS: DAPTOmycin 675 MG in SYRINGE 0 ML IV SCH (07:43)
[2021-11-02] MEDS: allopurinoL 300 MG TAB PO SCH (07:43)
[2021-11-02] MEDS: CEFEPIME 2,000 MG in SYRINGE 0 ML IV SCH ×2 (07:43→20:57)
[2021-11-02 08:02] LABS: Basophils # (auto) 0.04 K/uL (0-0.2); Basophils % (auto) 0.4 %; Eosinophils # (auto) 0.59 K/uL (0-0.50); Eosinophils % (auto) 5.3 %; Hematocrit (blood only) 47.8 % (40.1-51.0); Hemoglobin 15.4 g/dl (14.0-18.0); Immature Granulocytes # (auto) 0.08 K/uL (0.00-0.02); Immature Granulocytes % (auto) 0.7 %; Lymphocytes # (auto) 0.86 K/uL (1.2-3.4); Lymphocytes % (auto) 7.8 %; Mean Corpuscular Hemoglobin 31.3 pg (25.0-34.0); Mean Corpuscular Hgb Conc 32.2 g/dL (32.0-36.0); Mean Corpuscular Volume 97.2 fL (80.0-100.0); Mean Platelet Volume 11.1 fL (9.4-12.4); Monocytes # (auto) 0.68 K/uL (0.24-0.82); Monocytes % (auto) 6.2 %; Neutrophils # (auto) 8.79 K/uL (1.4-6.5); Neutrophils % (auto) 79.6 %; Platelet Count 202 K/uL (130-400); RDW Coefficient of Variation 15.1 % (11.5-14.5); RDW Standard Deviation 54.9 fL (36.4-46.3); Red Blood Count 4.92 M/uL (4.63-6.08); White Blood Count 11.04 K/ul (4.8-10.8)
[2021-11-02 08:39] LABS: BUN Creatinine Ratio 16.6 (10-20); C Reactive Protein 13.54 mg/dl (0-0.5); Calcium 8.7 mg/dl (8.5-10.1); Creatinine Clr Calc Pharmacy 56.4 ml/min; Est GFR (African American) 42.9 ml/min; Magnesium 1.8 mg/dl (1.7-2.4); Potassium 4.2 mmol/L (3.5-5.1)
--- NOTE | 2021-11-02 15:22 | Hospitalist Progress Note ---
Date of Service November 02, 2021 Assessment & Plan (1) Diabetic foot infection: Plan: Patient presents as above with non purulent drainage associated surrounding erythema to the toes and midfoot. Sloughing of skin noted however with debridement done recently. - MRI foot did not show any evidence of osteomyelitis - Cultures growing polymicrobials - Continue daptomycin and Cefepime - Blood cultures pending -Inflammatory markers still elevated - Continue Wound dressing -ID has been consulted for guidance on type and duration of antibiotics (2) Open wound of foot: Plan: as above (3) Cellulitis of left foot: Plan: As above (4) DALE (acute kidney injury): Plan: MARCO A II on CKD III - Follow with ABX and JONEL administration - Renal dose medications - Avoid other nephrotoxic medications as able - Was recently started on ARB Losartan 50mg PO daily by PCP 10/24/21- hold - Renal ultrasound obtained 10/25/21 as outpatient (5) Chronic atrial fibrillation: Plan: Rate controlled with Metoprolol - On Warfarin- continue INR 2.7 (6) Venous stasis dermatitis: Plan: Chronic with history of venous ablation - SCDS as able - Tubi senior drafter vs. compression hose as able (7) Sleep apnea: Plan: Continue CPAP while in house - Patietn states he on 4 CPAP at home - (8) Hypertension: Plan: Continue with Metoprolol 100mg daily - HOLD Losartan (9) Chronic kidney disease, stage III (moderate): Plan: Follow (10) Diabetes: Plan: Carries diagnosis of pre-diabetes- with recorded HGB A1C 05/17 as 5.8 - follow with dextrose checks and hypoglycemic protocol Plan d/c when we finalize plans regarding antibiotics from ID Admission and Anticipated Discharge Date Admission Date: October 31, 2021 Subjective patient seen and examined, no new complaints, wound has been dressed, was hoping he could be discharged soon Review of Systems Review of Systems: All systems reviewed are negative, apart from the ones contained in the history. Physical Exam Physical Exam: The patient is awake, alert and oriented 3, well developed and well nourished, normocephalic and atraumatic, lying in bed and in no acute distress. HEENT--PERRL, EOMI, mucous membranes and oropharynx mildly dry Neck--supple. No JVD. No bruits. Thyroid normal, trachea midline, no adenopathy. Heart--normal S1 and S2. No murmurs, rubs or gallops. Lungs--clear bilaterally, no respiratory distress, no accessory muscle use. Abdomen--normal bowel sounds and soft. Mild epigastric and left sided abdominal pain Extremities--left foot in bandage Dermatologic--normal skin turgor, normal color, no abnormal lymph nodes, no rash. Neurologic--cranial nerves II through XII grossly intact. Rheumatologic--normal range of motion. Psychiatric--normal affect. Results & Data Results & Data ([facility]) Vital Signs (Past 12 Hours) Vital Signs Temp Pulse Resp BP Pulse Ox O2 Del Method 11/02/21 07:50 Room Air 11/02/21 06:28 99.5 F 82 20 119/76 95 Room Air PG Care Time/CCT Total # of Minutes Spent Total Time Spent with Patient: Total time spent is greater than 50% in coordination of care (as documented) at patient's floor/unit and/or counseling patient: Coding Level of Care Code 94568 Subseq Hosp Care Lvl 2 Diagnoses Diabetic foot infection E11.628; L08.9 Open wound of foot S91.309A Cellulitis of left foot L03.116 DALE (acute kidney injury) N17.9 Chronic atrial fibrillation I48.2 Venous stasis dermatitis I87.2 Sleep apnea G47.30 Hypertension I10 Chronic kidney disease, stage III (moderate) N18.3 Diabetes E11.9 Time Spent (min) 35
[2021-11-02] MEDS: METOPROLOL SUCC 50MG EXT REL TAB PO SCH (20:57)
[2021-11-03] MEDS: LEVOTHYROXINE SODIUM 150 MCG TABLET PO SCH (06:21)
--- NOTE | 2021-11-03 07:59 | Hospitalist Progress Note ---
Date of Service November 03, 2021 Assessment & Plan (1) Diabetic foot infection: Plan: Patient presents as above with non purulent drainage associated surrounding erythema to the toes and midfoot. Sloughing of skin noted however with debridement done recently. MRI obtained LEFT FOOT, NEGATIVE for osteomyelitis however limited examination as patient refused additional imaging after only 2 sequences. NO definite MR evidence Wound cx --> polymicrobioal with MRSA, pseudomonas, Group B beta strep, alcaligenes faecalis, staph aureus BCx NGTD after 48 hours WBC now wnl, afebrile Continue would dressing perla, wound RN on consult DISCONTINUED IVF as keeping up with PO and has been on continuous IVF since admit ID consulted Rec'd checking CK --WNLl, continue Dapto/Cefepime through 11/09 Weekly CBCD, CMP, CK while on abx and fax labs to PCP for review If symptoms not improved by time f/u on 11/09, abx can be extended as indicated. ?Levaquin + Linezolid reasonable option at d/c but would need to discuss with pharmacy but will opt for IV abx given extend of infection Discussed with CM this morning, to assist with arranging home IV abx and home health. US guided IV ordered for today Monitor BMP/INR in am -- had not had coumadin resumed. Lovenox SQ x 1 (2) Open wound of foot: Plan: as above wound care at follow up/home health/abx as above (3) Cellulitis of left foot: Plan: As above, improving (4) DALE (acute kidney injury): Plan: MARCO A II on CKD III with Cr 2.04 on admit although appears baseline in 1.7-2s Renal dose meds/avoid nephrotoxic agents when able Recently started on losartan 50mg daily by PCP on 10/24 --> consider resuming but will hold off for now. Renal US on 10/25 outpatient with no calculi, chronic medical renal disease, numerous complex/simple b/l cysts Continued outpt f/u BMP Logan (5) Chronic atrial fibrillation: Plan: Rate controlled with Metoprolol which has been continued 100mg daily On coumadin 7.5mg M// and 5mg all other days, has not gotten while inpatient and INR trending down INR 1.7 on AM (was 2) and given dose lovenox and resumed coumadin for this evening Will also give a gram IV mag to keep closer to 2, consider additional dose this afternoon K 4 INR in AM (6) Venous stasis dermatitis: Plan: Chronic with history of venous ablation - SCDS as able - Tubi kiln door repairer vs. compression hose as able (7) Sleep apnea: Plan: Continue CPAP while in house - Patietn states he on 4 CPAP at home - has not used past two nights. will ask RT to apply tonight if patient agreeable (8) Hypertension: Plan: Continue with Metoprolol 100mg daily - HOLD Losartan BP stable, Cr improved from baseline and could consider resuming pending BPs but cautious given CKD and K on upper end of normal on admit, avoiding for now consider adding low dose amlodipine but would want to avoid increasing LE edema Monitor for now (9) Chronic kidney disease, stage III (moderate): Plan: Follow Cr stable and actually lower than baseline IVF discontinued BMP in AM (10) Diabetes: Plan: Carries diagnosis of pre-diabetes- with recorded HGB A1C 05/17 as 5.8 - follow with dextrose checks and hypoglycemic protocol (11) Hypothyroidism: Plan: chronic, TSH wnl 2.1 Continue 150mcg daily Plan CM assisting to arrange home IV abx US guided IV ordered given only to continue thought 11/09 and can be extended up to a month with the US guided IV. Weekly labs while on such Admission and Anticipated Discharge Date Admission Date: October 31, 2021 Supervising Physician Co-Signing Physician Notes PA Supervision Note: I did not personally see or examine the patient today, but I verified all peters points of PALOMO Chowdary's assessment and plan with the following exceptions/additions: recommend Ortho consult for Charcot appearing foot Subjective Evaluated this morning, doing well. States not having any pain (reports having similar infection same foot approx 2 years ago). Discussed ID consultation and recommendations as patient hopeful for d/c. Discussed will work on getting home abx arranged and discussed f/u PCP and if needed can further extend course but would rather IV than consider PO given MRI negative for osteo but not best imaging. Discussed coumadin for afib -- he takes 7.5mg M/W/ and 5mg all other days. States he didn't realize he wasn't getting it but that its ok because his is "asymptomatic". Discussed resuming and give dose of lovenox in meantime and will monitor labs in AM and hopefully discharge. Review of Systems Review of Systems: All systems reviewed & are unremarkable except as noted in HPI & below Physical Exam Physical Exam: General: WD/WN obese male sitting up in chair, NAD looking out the window HEENT; head normocephalic, atraumatic, mmm, trachea midline without deviation Resp: CTAB, diminished in the bases, no w/c, on room air 96% CV: irregularly irregular (rate 70s), no m/r/g, chronic lymphedema, no calf tenderness GI:+BS, +distended, nontender : no zimmerman MSK/Neuro: moves all extremities, no focal deficits Skin: chronic lymphedema with skin thickening to b/l LE, LLE with sloughing and serous/yellow drainage, flaking of skin, nonpainful, dressing to distal foot c/d/i Results & Data Results & Data ([facility]) Vital Signs (Past 12 Hours) Vital Signs Temp Pulse Pulse Resp BP BP Pulse Ox 11/03/21 06:02 36.8 C 79 18 138/74 96 11/02/21 22:18 36.7 C 77 20 138/87 97 11/02/21 20:40 80 131/81 O2 Del Method 11/03/21 06:02 Room Air 11/02/21 22:18 Room Air 11/02/21 20:40 Laboratory Results 11/03/21 11/03/21 11/03/21 Range/Units 08:53 08:11 07:09 WBC (4.8-10.8) K/ul RBC (4.63-6.08) M/uL Hgb (14.0-18.0) g/dl Hct (40.1-51.0) % MCV (80.0-100.0) fL MCH (25.0-34.0) pg MCHC (32.0-36.0) g/dL RDW Std Deviation (36.4-46.3) fL RDW Coeff of [place] (11.5-14.5) % Plt Count (130-400) K/uL MPV (9.4-12.4) fL Immature Gran % (Auto) % Neut % (Auto) % Lymph % (Auto) % [place] % (Auto) % Eos % (Auto) % Baso % (Auto) % Neut # (Auto) (1.4-6.5) K/uL Lymph # (Auto) (1.2-3.4) K/uL [place] # (Auto) (0.24-0.82) K/uL Eos # (Auto) (0-0.50) K/uL Baso # (Auto) (0-0.2) K/uL Immature Gran # (Auto) (0.00-0.02) K/uL PT (9.0-12.0) Seconds INR (0.9-1.1) Sodium (136-145) mmol/L Potassium (3.5-5.1) mmol/L Chloride (98-107) mmol/L Carbon Dioxide (21-32) mmol/L Anion Gap (3-11) BUN (6-23) mg/dl Creatinine (0.6-1.4) mg/dl Est Cr Clr Drug Dosing ml/min Est GFR ( Amer) ml/min Est GFR (Non-Af Amer) ml/min BUN/Creatinine Ratio (10-20) Glucose (70-99(Fasting)) mg/dl POC Glucose 94 (70-99) mg/dl Calcium (8.5-10.1) mg/dl Magnesium (1.7-2.4) mg/dl Total Creatine Kinase 80 (30-223) U/L TSH 2.141 (0.300-4.500) uIu/ml 11/03/21 11/03/21 11/03/21 Range/Units 07:09 07:09 07:09 WBC 9.15 (4.8-10.8) K/ul RBC 4.63 (4.63-6.08) M/uL Hgb 14.8 (14.0-18.0) g/dl Hct 45.2 (40.1-51.0) % MCV 97.6 (80.0-100.0) fL MCH 32.0 (25.0-34.0) pg MCHC 32.7 (32.0-36.0) g/dL RDW Std Deviation 54.0 H (36.4-46.3) fL RDW Coeff of [place] 14.9 H (11.5-14.5) % Plt Count 209 (130-400) K/uL MPV 11.2 (9.4-12.4) fL Immature Gran % (Auto) 1.2 % Neut % (Auto) 75.8 % Lymph % (Auto) 10.4 % [place] % (Auto) 5.5 % Eos % (Auto) 6.6 % Baso % (Auto) 0.5 % Neut # (Auto) 6.94 H (1.4-6.5) K/uL Lymph # (Auto) 0.95 L (1.2-3.4) K/uL [place] # (Auto) 0.50 (0.24-0.82) K/uL Eos # (Auto) 0.60 H (0-0.50) K/uL Baso # (Auto) 0.05 (0-0.2) K/uL Immature Gran # (Auto) 0.11 H (0.00-0.02) K/uL PT 17.3 H (9.0-12.0) Seconds INR 1.7 H (0.9-1.1) Sodium 135 L (136-145) mmol/L Potassium 4.0 (3.5-5.1) mmol/L Chloride 106 (98-107) mmol/L Carbon Dioxide 24 (21-32) mmol/L Anion Gap 5 (3-11) BUN 25 H (6-23) mg/dl Creatinine 1.52 H (0.6-1.4) mg/dl Est Cr Clr Drug Dosing 64.9 ml/min Est GFR ( Amer) 50.9 ml/min Est GFR (Non-Af Amer) 43.9 ml/min BUN/Creatinine Ratio 16.4 (10-20) Glucose 92 (70-99(Fasting)) mg/dl POC Glucose (70-99) mg/dl Calcium 8.6 (8.5-10.1) mg/dl Magnesium 1.7 (1.7-2.4) mg/dl Total Creatine Kinase (30-223) U/L TSH (0.300-4.500) uIu/ml 11/02/21 11/02/21 11/02/21 Range/Units 20:41 17:13 11:56 WBC (4.8-10.8) K/ul RBC (4.63-6.08) M/uL Hgb (14.0-18.0) g/dl Hct (40.1-51.0) % MCV (80.0-100.0) fL MCH (25.0-34.0) pg MCHC (32.0-36.0) g/dL RDW Std Deviation (36.4-46.3) fL RDW Coeff of [place] (11.5-14.5) % Plt Count (130-400) K/uL MPV (9.4-12.4) fL Immature Gran % (Auto) % Neut % (Auto) % Lymph % (Auto) % [place] % (Auto) % Eos % (Auto) % Baso % (Auto) % Neut # (Auto) (1.4-6.5) K/uL Lymph # (Auto) (1.2-3.4) K/uL [place] # (Auto) (0.24-0.82) K/uL Eos # (Auto) (0-0.50) K/uL Baso # (Auto) (0-0.2) K/uL Immature Gran # (Auto) (0.00-0.02) K/uL PT (9.0-12.0) Seconds INR (0.9-1.1) Sodium (136-145) mmol/L Potassium (3.5-5.1) mmol/L Chloride (98-107) mmol/L Carbon Dioxide (21-32) mmol/L Anion Gap (3-11) BUN (6-23) mg/dl Creatinine (0.6-1.4) mg/dl Est Cr Clr Drug Dosing ml/min Est GFR ( Amer) ml/min Est GFR (Non-Af Amer) ml/min BUN/Creatinine Ratio (10-20) Glucose (70-99(Fasting)) mg/dl POC Glucose 129 H 94 115 H (70-99) mg/dl Calcium (8.5-10.1) mg/dl Magnesium (1.7-2.4) mg/dl Total Creatine Kinase (30-223) U/L TSH (0.300-4.500) uIu/ml PG Care Time/CCT Total # of Minutes Spent Total Time Spent with Patient: Total time spent is greater than 50% in coordination of care (as documented) at patient's floor/unit and/or counseling patient: Coding Level of Care Code 82068 Subseq Hosp Care Lvl 3 Diagnoses Diabetic foot infection E11.628; L08.9 Open wound of foot S91.309A Cellulitis of left foot L03.116 DALE (acute kidney injury) N17.9 Chronic atrial fibrillation I48.2 Venous stasis dermatitis I87.2 Sleep apnea G47.30 Hypertension I10 Chronic kidney disease, stage III (moderate) N18.3 Diabetes E11.9 Hypothyroidism E03.9
[2021-11-03] MEDS: allopurinoL 300 MG TAB PO SCH (08:00)
[2021-11-03] MEDS: CEFEPIME 2,000 MG in SYRINGE 0 ML IV SCH ×2 (08:02→16:39)
[2021-11-03] MEDS: LACTATED RINGER'S 1,000 ML IV SCH (08:02)
[2021-11-03] MEDS: DAPTOmycin 675 MG in SYRINGE 0 ML IV SCH (08:02)
[2021-11-03 08:13] LABS: Basophils # (auto) 0.05 K/uL (0-0.2); Basophils % (auto) 0.5 %; Eosinophils % (auto) 6.6 %; Hematocrit (blood only) 45.2 % (40.1-51.0); Hemoglobin 14.8 g/dl (14.0-18.0); Immature Granulocytes # (auto) 0.11 K/uL (0.00-0.02); Immature Granulocytes % (auto) 1.2 %; Lymphocytes # (auto) 0.95 K/uL (1.2-3.4); Lymphocytes % (auto) 10.4 %; Mean Corpuscular Hgb Conc 32.7 g/dL (32.0-36.0); Mean Corpuscular Volume 97.6 fL (80.0-100.0); Mean Platelet Volume 11.2 fL (9.4-12.4); Monocytes % (auto) 5.5 %; Neutrophils # (auto) 6.94 K/uL (1.4-6.5); Neutrophils % (auto) 75.8 %; Platelet Count 209 K/uL (130-400); RDW Coefficient of Variation 14.9 % (11.5-14.5); Red Blood Count 4.63 M/uL (4.63-6.08); White Blood Count 9.15 K/ul (4.8-10.8)
[2021-11-03 08:23] LABS: INR 1.7 (0.9-1.1); Prothrombin Time 17.3 Seconds (9.0-12.0)
[2021-11-03 08:33] LABS: BUN Creatinine Ratio 16.4 (10-20); Calcium 8.6 mg/dl (8.5-10.1); Creatinine Clr Calc Pharmacy 64.9 ml/min; Est GFR (African American) 50.9 ml/min; Est GFR (Non-African American) 43.9 ml/min; Magnesium 1.7 mg/dl (1.7-2.4)
[2021-11-03] MEDS ORDERED: ENOXAPARIN 80 MG/0.8 ML SYR SQ ONE (09:30)
[2021-11-03] MEDS ORDERED: MAGNESIUM SULFATE / D5W 1 GM/100 ML BAG IV ONE (10:25)
[2021-11-03] MEDS ORDERED: WARFARIN SOD 7.5 MG TAB PO SCH (16:00)
[2021-11-03] MEDS ORDERED: WARFARIN SOD 5 MG TAB PO SCH (16:00)
[2021-11-03] MEDS: ADVANCED PROBIOTIC 1250 MG CAPSULE PO SCH (16:39)
[2021-11-03] MEDS: METOPROLOL SUCC 50MG EXT REL TAB PO SCH (20:10)
[2021-11-04] MEDS: CEFEPIME 2,000 MG in SYRINGE 0 ML IV SCH ×2 (00:42→08:21)
[2021-11-04] MEDS: LEVOTHYROXINE SODIUM 150 MCG TABLET PO SCH (05:56)
--- NOTE | 2021-11-04 06:37 | Ultrasound Report ---
LEFT LOWER EXTREMITY ARTERIAL DOPPLER ULTRASOUND CLINICAL HISTORY: left foot infection COMPARISON STUDY: Left lower extremity arterial Doppler ultrasound January 27, 2020. TECHNIQUE: Color and duplex Doppler sonography of the arterial system of the left lower extremity was performed. FINDINGS: Ankle to brachial indices could not be obtained due to pain and tenderness. Mild plaque wit hin the left lower extremity was noted. No elevated velocities were identified. Triphasic flow is helen ntified within the left common femoral, profunda and superficial femoral arteries. There is biphasic flow within the left popliteal artery. There is predominantly monophasic flow within the left calf ve ssels. No vessel occlusion is identified by sonography. Subcutaneous edema was noted. IMPRESSION: 1. Mild atherosclerotic plaque within the left lower extremity. No evidence for a hemodynamically sig nificant stenosis. 2. Predominantly monophasic flow within the left calf vessels. Vessels patent by sonography. ACT 112: Negative or not required by law. Electronically signed by: Calvin Preciado M.D. 11/04/2021 6:35 AM
--- NOTE | 2021-11-04 07:43 | Hospitalist Progress Note ---
Date of Service November 04, 2021 Assessment & Plan (1) Diabetic foot infection: Plan: Patient presents as above with non purulent drainage associated surrounding erythema to the toes and midfoot. Sloughing of skin noted however with debridement done recently. MRI obtained LEFT FOOT, NEGATIVE for osteomyelitis however limited examination as patient refused additional imaging after only 2 sequences. NO definite MR evidence Wound cx --> polymicrobial with MRSA, pseudomonas, Group B beta strep, alcaligenes faecalis, staph aureus BCx NGTD after 48 hours WBC now wnl, afebrile Continue would dressing changes, wound RN on consult DISCONTINUED IVF as keeping up with PO 11/03 and has been on continuous IVF since admit ID consulted Rec'd checking CK --WNLl, continue Dapto/Cefepime through 11/09 Weekly CBCD, CMP, CK while on abx and fax labs to PCP for review If symptoms not improved by time f/u on 11/09, abx can be extended as indicated. ?Levaquin + Linezolid reasonable option at d/c but would need to discuss with pharmacy but will opt for IV abx given extend of infection US guided IV in place. CM arranged IV abx but if not d/c today will remain inpatient through weekend Of note, given extensiveness of infection to LLE and possibly Charcot foot, obtained arterial duplex/vascular consult and consulted Orthopedics for AM to see if possibly benefit from re-vascularization/amputation Labs from AM pending (2) Open wound of foot: Plan: as above wound care at follow up/home health/abx as above (3) Cellulitis of left foot: Plan: As above, improving (4) DALE (acute kidney injury): Plan: MARCO A II on CKD III with Cr 2.04 on admit although appears baseline in 1.7-2s Renal dose meds/avoid nephrotoxic agents when able Recently started on losartan 50mg daily by PCP on 10/24 --> consider resuming but will hold off for now. Renal US on 10/25 outpatient with no calculi, chronic medical renal disease, numerous complex/simple b/l cysts Continued outpt f/u BMP Logan (5) Chronic atrial fibrillation: Plan: Rate controlled with Metoprolol which has been continued 100mg daily On coumadin 7.5mg // and 5mg all other days, has not gotten while inpatient and INR trending down INR 1.7 on AM (was 2) and given dose lovenox and resumed coumadin for this evening Will also give a gram IV mag to keep closer to 2, consider additional dose this afternoon K 4 INR in AM (6) Venous stasis dermatitis: Plan: Chronic with history of venous ablation - SCDS as able - Tubi special educator vs. compression hose as able (7) Sleep apnea: Plan: Continue CPAP while in house - Patietn states he on 4 CPAP at home - has not used past two nights. will ask RT to apply tonight if patient agreeable (8) Hypertension: Plan: Continue with Metoprolol 100mg daily - HOLD Losartan BP stable, Cr improved from baseline and could consider resuming pending BPs but cautious given CKD and K on upper end of normal on admit, avoiding for now consider adding low dose amlodipine but would want to avoid increasing LE edema Monitor for now (9) Chronic kidney disease, stage III (moderate): Plan: Follow Cr stable and actually lower than baseline IVF discontinued BMP in AM (10) Diabetes: Plan: Carries diagnosis of pre-diabetes- with recorded HGB A1C 05/17 as 5.8 - follow with dextrose checks and hypoglycemic protocol (11) Hypothyroidism: Plan: chronic, TSH wnl 2.1 Continue 150mcg daily Plan CM assisting to arrange home IV abx US guided IV ordered given only to continue thought 11/09 and can be extended up to a month with the US guided IV. Weekly labs while on such Admission and Anticipated Discharge Date Admission Date: October 31, 2021 Results & Data Results & Data ([facility]) Vital Signs (Past 12 Hours) Vital Signs Temp Pulse Resp BP Pulse Ox Pulse Ox O2 Del Method 11/04/21 07:16 36.7 C 83 16 118/80 94 11/03/21 22:23 94 11/03/21 22:15 36.6 C 69 22 165/92 H 94 Room Air 11/03/21 20:00 64 155/90 H 95 Room Air O2 Del Method 11/04/21 07:16 11/03/21 22:23 Room Air 11/03/21 22:15 11/03/21 20:00 Diagnostic Findings Duplex Scan Lower Extremity Artery 11/03/21 17:47 LEFT LOWER EXTREMITY ARTERIAL DOPPLER ULTRASOUND CLINICAL HISTORY: left foot infection COMPARISON STUDY: Left lower extremity arterial Doppler ultrasound January 27, 2020. TECHNIQUE: Color and duplex Doppler sonography of the arterial system of the left lower extremity was performed. FINDINGS: Ankle to brachial indices could not be obtained due to pain and tenderness. Mild plaque within the left lower extremity was noted. No elevated velocities were identified. Triphasic flow is identified within the left common femoral, profunda and superficial femoral arteries. There is biphasic flow within the left popliteal artery. There is predominantly monophasic flow within the left calf vessels. No vessel occlusion is identified by sonography. Subcutaneous edema was noted. IMPRESSION: 1. Mild atherosclerotic plaque within the left lower extremity. No evidence for a hemodynamically significant stenosis. 2. Predominantly monophasic flow within the left calf vessels. Vessels patent by sonography. ACT 112: Negative or not required by law. Electronically signed by: Calvin Preciado M.D. 11/04/2021 6:35 AM PG Care Time/CCT Total # of Minutes Spent Total Time Spent with Patient: Total time spent is greater than 50% in coordination of care (as documented) at patient's floor/unit and/or counseling patient: Coding Diagnoses Diabetic foot infection E11.628; L08.9 Open wound of foot S91.309A Cellulitis of left foot L03.116 DALE (acute kidney injury) N17.9 Chronic atrial fibrillation I48.2 Venous stasis dermatitis I87.2 Sleep apnea G47.30 Hypertension I10 Chronic kidney disease, stage III (moderate) N18.3 Diabetes E11.9 Hypothyroidism E03.9
[2021-11-04 08:01] LABS: Basophils # (auto) 0.07 K/uL (0-0.2); Basophils % (auto) 0.8 %; Eosinophils # (auto) 0.56 K/uL (0-0.50); Eosinophils % (auto) 6.1 %; Hemoglobin 14.5 g/dl (14.0-18.0); Immature Granulocytes % (auto) 1.1 %; Lymphocytes # (auto) 1.15 K/uL (1.2-3.4); Lymphocytes % (auto) 12.5 %; Mean Corpuscular Hemoglobin 31.7 pg (25.0-34.0); Mean Corpuscular Hgb Conc 33.7 g/dL (32.0-36.0); Mean Corpuscular Volume 94.1 fL (80.0-100.0); Monocytes % (auto) 5.4 %; Neutrophils # (auto) 6.85 K/uL (1.4-6.5); Neutrophils % (auto) 74.1 %; Platelet Count 220 K/uL (130-400); RDW Coefficient of Variation 14.6 % (11.5-14.5); RDW Standard Deviation 50.4 fL (36.4-46.3); Red Blood Count 4.57 M/uL (4.63-6.08); White Blood Count 9.23 K/ul (4.8-10.8)
[2021-11-04] MEDS: ADVANCED PROBIOTIC 1250 MG CAPSULE PO SCH (08:17)
[2021-11-04] MEDS: allopurinoL 300 MG TAB PO SCH (08:18)
[2021-11-04 08:19] LABS: BUN Creatinine Ratio 16.3 (10-20); Calcium 8.6 mg/dl (8.5-10.1); Creatinine Clr Calc Pharmacy 64.5 ml/min; Est GFR (African American) 50.4 ml/min; Est GFR (Non-African American) 43.5 ml/min
[2021-11-04 08:21] LABS: INR 1.4 (0.9-1.1); Prothrombin Time 15.1 Seconds (9.0-12.0)
[2021-11-04] MEDS: DAPTOmycin 675 MG in SYRINGE 0 ML IV SCH (08:21)
--- NOTE | 2021-11-04 08:37 | Orthopedic Consultation ---
Date of Consultation November 04, 2021 Assessment & Plan (1) Cellulitis of left foot: Cellulitis left foot - improving No obvious abscesses or bony involvement at this time. MRI was not completed and minimal. Patient states that he was having too much pain and also did not like the confinement. Moderate degenerative changes to the midfoot. I have discussed the case with Dr. Hernandez. With his interval improvement, and no obvious sites of infection that would need surgical debridement, would continue plans for IV antibiotics at home. He needs to continue regular wound care visits and should follow-up with Dr. Michael Middleton at some point as well. We discussed that if his symptoms return or worsen in the future, that we would likely have to give him sedation for complete MRI scan. Patient stated that he would be amenable to this. Duplex artery scan as noted below. No significant stenosis noted. No surgical intervention from orthopedics at this time Patient states that he would like to follow-up with podiatry and wound care. We discussed follow-up with Dr. Hernandez in the future if needed which he is agreeable to. History of Present Illness Reason for Consultation: Cellulitis of left foot Attending Physician: Sydnie Kam MD History of Present Illness 75 YOM with past medical history of: Obesity, Hypothyroidism, Afib (on Warfarin), CKD, HTN, Gout, PFO, DERREK (CPAP 4cm H20 at home), Great Saphenous Vein ablation, DMII (not on any meds), chronic lymphedema of the lower extremities and dermatitis of his feet. Patient was admitted On 10/31/2021 with an open wound of his left foot. He has chronic issues with his feet and has been seeing wound care on a regular basis. He states that he also sees Dr. Michael Middleton for his toenails. Apparently on Sunday he noticed that his left foot began to have increased redness and swelling and also discomfort with ambulation. This progressed and he was admitted on the above-noted date. Cultures of the foot were taken on 10/26/2021 at the wound care clinic and showed multiple organisms including MRSA, staph aureus, group B beta strep, Pseudomonas, Alcalignes Faeclis. Patient was started on antibiotics and continue to slowly progress during his stay. An MRI of the foot was ordered. The patient was unable to complete the MRI due to pain and being uncomfortable in the MRI scanner. The limited scan that was done showed no abscesses and no obvious osteomyelitis. The patient is planned for discharge today with home IV antibiotics. We have been asked to see him prior to his discharge for any further input. Allergies Allergy/AdvReac Type Severity Reaction Status Date / Time sulfamethoxazole Allergy Severe Hives, Verified 10/31/21 14:56 [From skin Sulfamethoxazole-Trimethoprim] sloughing trimethoprim Allergy Severe Hives, Verified 10/31/21 14:56 [From skin Sulfamethoxazole-Trimethoprim] sloughing hydrochlorothiazide Allergy Unknown "shut down Verified 10/31/21 14:56 kidneys" Home Medications Medication Instructions Recorded Confirmed Type metoprolol succinate 100 mg 100 mg PO HS ##0 08/07/16 10/31/21 History tablet,extended release 24 hr allopurinol 300 mg tablet 300 mg PO QAM 01/02/19 10/31/21 History warfarin 5 mg tablet See Rx Instructions PO UD #120 tabs 03/08/21 10/31/21 Rx doxycycline hyclate 100 mg tablet 100 mg PO BID 10/31/21 10/31/21 History levothyroxine 150 mcg tablet 150 mcg PO QAM 10/31/21 10/31/21 History losartan 50 mg tablet 50 mg PO DAILY 10/31/21 10/31/21 History L.acidop,casei,lactis,rham-B.lact,oscar 2 cap PO DAILY 14 days #28 caps 11/03/21 Rx 625 mg (10 billion cell) capsule (Advanced Probiotic) cefepime 2 gram solution for 2 g IV Q8H #10 ea 11/03/21 Rx injection daptomycin 500 mg intravenous 675 mg IV DAILY #1 ea 11/03/21 Rx solution Patient History Medical History Atrial fibrillation, chronic BPH (benign prostatic hyperplasia) Cellulitis of left anterior lower leg Chronic atrial fibrillation Chronic kidney disease, stage III (moderate) Chronic ulcer of left foot Gout Hearing deficit History of basal cell carcinoma Hypertension Hypothyroidism Leukocytosis Obesity On anticoagulant therapy Penile hypospadias Prediabetes Renal cyst Sepsis Sleep apnea cpap Venous stasis ulcer Surgical History History of esophagogastroduodenoscopy (EGD) Family History Other Hearing loss No family history of adverse response to anesthesia No family history of bleeding disorder Denies family history of Heart disease Allergies Cancer Hypertension Stroke Asthma Social History Smoking Status: Former smoker Tobacco Type: Cigarettes packs per day: 1; Second Hand Exposure: No; Hx Alcohol Use: Yes Alcohol type: other Alcohol Intake Frequency Comment: 1 bottle of champagne / week Hx Substance Use: No Preferred Language: Kazakh Communication Ability: Effective Visual Impairment: Limited Hearing Ability: Hard of Hearing Appeals And Generalist Clerk Required: No Beliefs That Will Affect Care: None marital status: Current Living Situation: Spouse current occupational status: retired How many Children do You have: 4 How many Children do You have Comment: 3 local, pt independent with care. Feels Safe at Home: Yes Assistive Devices: None Physical Exam Physical Exam: Patient is a 75-year-old white male who appears his stated age. Alert and oriented x3, no acute distress, pleasant cooperative. Of the patient's left lower extremity shows chronic lymphedema, venous stasis changes, chronic dermatitis and dry skin of his lower extremity to the foot. He is a current dressing over the forefoot which is removed. There is no overt purulence or drainage noted at this time. The Aquacel Ag on the dorsum of the foot as well as between the toes appears dry at this time. He continues to have erythema of the foot which comparing it to his pictures taken by wound care team earlier in his stay does appear better. The patient states that it looks better overall and he is having less pain. I cannot appreciate any fluctuance on palpation and he is nontender at this time. There are no open wounds that are draining that I can appreciate. I cannot express any fluid from any of the areas where his dressings are. Patient does have sensation into his foot. Capillary refills less than 2 seconds. Patient with moderate swelling of the dorsum of the foot and I cannot appreciate dorsalis pedis pulse. Patient is able to take his ankle through range of motion without discomfort. He is moving his toes without discomfort at this time. Dressings reapplied. Results & Data ([facility]) Vital Signs (Past 12 Hours) Vital Signs Temp Pulse Resp BP Pulse Ox Pulse Ox O2 Del Method 11/04/21 07:16 36.7 C 83 16 118/80 94 11/03/21 22:23 94 11/03/21 22:15 36.6 C 69 22 165/92 H 94 Room Air O2 Del Method 11/04/21 07:16 11/03/21 22:23 Room Air 11/03/21 22:15 Diagnostic Findings Patient:ANNAMARIE LARSEN Admit Date:10/31/21 MR#:[id number] Address1:[address] [place] [address] Acct ID:[id number] Address2: Date:1945 [facility] Zip:[place] [address] Age:75 Location:ED Sex:M Room/Bed: Att Phy: Diagnosis:INFECTED LEFT FOOT Ena Phy:Clovis Heredia M.D. Service Date:10/31/21 Fam Phy: Interpreting Phy:Peter CastilloAdmit Phy: Ordering Phy:Rico Chávez D.O. cc: ~ XR foot LT min 3V routine HISTORY: 75 years-old Male infection chronic left foot pain with soft tissue infection COMPARISON: Foot radiographs 03/31/2020 TECHNIQUE: 3 views of the left foot FINDINGS: Healed chronic fracture of the fourth metatarsal. Limited study secondary to positioning. Multifocal osteoarthritis redemonstrated, severe within the midfoot. No acute fracture, dislocation or osseous erosion. There is diffuse soft tissue swelling, most pronounced dorsally. Large plantar enthesophyte of the calcaneus. Arterial calcifications. IMPRESSION: 1. Diffuse soft tissue swelling without acute osseous abnormality. 2. Severe degeneration of the midfoot redemonstrated. 3. Healed chronic fracture of the fourth metatarsal. MR foot LT w/o con CLINICAL HISTORY: Chronic left foot ulcer with the patient history of gout. Fluid seeping for 2 weeks.. COMPARISON: Standard radiographs from 10/31/2021 TECHNIQUE: Multiplanar multisequence images of the left foot were performed without contrast. FINDINGS: This is a limited examination as the patient refused further imaging after only 2 sequences. Osseous structures: Homogeneous marrow signal is seen throughout the imaged bones of the foot. There is no evidence for marrow edema or marrow replacement. No acute osseous pathology is seen. Old, healed stress fractures present involving the fourth metatarsal shaft. Joints: Joint space narrowing and degenerative changes are seen at the tarsometatarsal joints. The remaining imaged joint spaces are intact. There are no joint effusions. Tendons: The extensor tendons along the dorsum of the foot and the flexor tendons along the plantar aspect of the foot are intact. Ligaments: The imaged ligaments of the foot are intact. Soft tissues: There is diffuse subcutaneous edema along the dorsum of the foot. No focal fluid collections can be identified. IMPRESSION: 1. Limited examination as the patient refused additional imaging after only 2 sequences. 2. No definite MR evidence for osteomyelitis or acute osseous pathology. 3. Subcutaneous swelling along the dorsum of the foot. ACT 112: Negative or not required by law. LEFT LOWER EXTREMITY ARTERIAL DOPPLER ULTRASOUND CLINICAL HISTORY: left foot infection COMPARISON STUDY: Left lower extremity arterial Doppler ultrasound January 27, 2020. TECHNIQUE: Color and duplex Doppler sonography of the arterial system of the le ft lower extremity was performed. FINDINGS: Ankle to brachial indices could not be obtained due to pain and tenderness. Mild plaque within the left lower extremity was noted. No elevated velocities were identified. Triphasic flow is identified within the left common femoral, profunda and superficial femoral arteries. There is biphasic flow within the left popliteal artery. There is predominantly monophasic flow within the left calf vessels. No vessel occlusion is identified by sonography. Subcutaneous edema was noted. IMPRESSION: 1. Mild atherosclerotic plaque within the left lower extremity. No evidence for a hemodynamically significant stenosis. 2. Predominantly monophasic flow within the left calf vessels. Vessels patent by sonography. ACT 112: Negative or not required by law.
[2021-11-04] MEDS ORDERED: ENOXAPARIN 150 MG/ML SYR SQ ONE (09:56)
--- NOTE | 2021-11-04 09:56 | Discharge Summary ---
Date of Service November 04, 2021 Admission HPI Per Admitting Provider 75 YOM with past medical history of: Obesity, Hypothyroidism, Afib (on Warfarin), CKD, HTN, Gout, PFO, DERREK (CPAP 4cm H20 at home), Great Saphenous Vein ablation, DMII (not on any meds), chronic lymphedema and dermatitis (desoximetasone 0.25%). Patient comes in to the EMD today following positive left foot wound cultures done on 10/26/21. Patient states that on Sunday he noticed his foot getting more red/painful, and draining clear fluid. He went to the wound care clinic- he has been following with dermatology for dermatitis of the left foot, it was measured 23 x 18 x 0.2 cm and cultures were obtained, the wound was debrided and with dressing of Aquacel AG to change on daily basis. His wound cultures were positive for Pseudomonas, Group B beta strep, Alcaligenes Faecalis, and Staph Aureus MRSA. He reports that he has been wearing his boot and dressing and it became saturated today and is with pain with ambulation. He is able to limp on his foot and does not use an ambulation device. He denies fevers or chills at home. He had blood cultures obtained and was started on Cefepime and Daptomycin in the EMD. Reveiw of his sensitivities, will continue with Cefepime and Daptomycin. Will provide LR overnight for his DALE. Will obtain MRI of his foot for evaluation of Osteomyelitis. Await blood culture results. Further consultations and studies when above information is obtained. COVID Test on admisssion is: NEGATIVE Admission Exam Per Admitting Provider PHYSICAL EXAM: General: awake, alert, no apparent distress Head: Normocephalic, atraumatic ENT: PERRL, EOMI, no pharyngeal exudate, mucous membranes moist Neuro: AAO x 3, speech clear and appropriate, strength intact bilaterally 5/5, sensation intact and equal all extremities and dermatomes, no pronator drift Chest: equal rise and fall of the chest, no accessory muscle use, no heaves or thrills, Clear to auscultation, on room air, Cardiac: irregular rate and rhythm, telemetry reviewed- afib, skin warm dry, +3 edema to left foot, +2 edema to right foot both extending to mid calf GI: NABS x 4 quadrants, soft, nontender to palpation, no rebound, guarding or tenderness : Spontaneously voiding, no pain, no CVA tenderness, Psych: Normal mood and affect Skin: (+) sloughing of skin and drainage left foot, malodorous, pain with palpation of lateral foot and toes. Does remain with ability to flex and extend toes. Principal Diagnosis Left foot infection, DM foot ulcer Discharge Exam General: WD/WN obese male sitting up in chair, NAD looking out the window HEENT; head normocephalic, atraumatic, mmm, trachea midline without deviation Resp: CTAB, diminished in the bases, no w/c, on room air 96% CV: irregularly irregular (rate 70-80ss), no m/r/g, chronic lymphedema, no calf tenderness GI:+BS, +distended, nontender : no zimmerman MSK/Neuro: moves all extremities, no focal deficits Skin: chronic lymphedema venous stasis changes/skin thickening to b/l LE, LLE with sloughing/flaking, dressing to distal foot c/d/i, aqua-cell between toes, cap refill <3 seconds, ankle ROM intact without pain no appreciable abscess or purulent material able to be drained today nonpainful, dressing to distal foot c/d/i Discharge Data Allergies Allergy/AdvReac Type Severity Reaction Status Date / Time sulfamethoxazole Allergy Severe Hives, Verified 10/31/21 14:56 [From skin Sulfamethoxazole-Trimethoprim] sloughing trimethoprim Allergy Severe Hives, Verified 10/31/21 14:56 [From skin Sulfamethoxazole-Trimethoprim] sloughing hydrochlorothiazide Allergy Unknown "shut down Verified 10/31/21 14:56 kidneys" Consultations 10/31/21 12:38 ED Decision to Admit Stat 11/01/21 08:16 Consult Infectious Diseases Routine 11/03/21 17:09 Consult Orthopedic Surgery Routine Ordered Studies Foot X-Ray 10/31/21 10:34 XR foot LT min 3V routine HISTORY: 75 years-old Male infection chronic left foot pain with soft tissue infection COMPARISON: Foot radiographs 03/31/2020 TECHNIQUE: 3 views of the left foot FINDINGS: Healed chronic fracture of the fourth metatarsal. Limited study secondary to positioning. Multifocal osteoarthritis redemonstrated, severe within the midfoot. No acute fracture, dislocation or osseous erosion. There is diffuse soft tissue swelling, most pronounced dorsally. Large plantar enthesophyte of the calcaneus. Arterial calcifications. IMPRESSION: 1. Diffuse soft tissue swelling without acute osseous abnormality. 2. Severe degeneration of the midfoot redemonstrated. 3. Healed chronic fracture of the fourth metatarsal. ACT 112: Negative or not required by law. The above report was generated using voice recognition software. It may contain grammatical, syntax or spelling errors. Electronically signed by: Peter Castillo M.D. 10/31/2021 11:30 AM Foot MRI 10/31/21 12:33 MR foot LT w/o con CLINICAL HISTORY: Chronic left foot ulcer with the patient history of gout. Fluid seeping for 2 weeks.. COMPARISON: Standard radiographs from 10/31/2021 TECHNIQUE: Multiplanar multisequence images of the left foot were performed without contrast. FINDINGS: This is a limited examination as the patient refused further imaging after only 2 sequences. Osseous structures: Homogeneous marrow signal is seen throughout the imaged bones of the foot. There is no evidence for marrow edema or marrow replacement. No acute osseous pathology is seen. Old, healed stress fractures present involving the fourth metatarsal shaft. Joints: Joint space narrowing and degenerative changes are seen at the tarsometatarsal joints. The remaining imaged joint spaces are intact. There are no joint effusions. Tendons: The extensor tendons along the dorsum of the foot and the flexor tendons along the plantar aspect of the foot are intact. Ligaments: The imaged ligaments of the foot are intact. Soft tissues: There is diffuse subcutaneous edema along the dorsum of the foot. No focal fluid collections can be identified. IMPRESSION: 1. Limited examination as the patient refused additional imaging after only 2 sequences. 2. No definite MR evidence for osteomyelitis or acute osseous pathology. 3. Subcutaneous swelling along the dorsum of the foot. ACT 112: Negative or not required by law. Electronically signed by: Jevon Kelley M.D. 10/31/2021 5:31 PM Duplex Scan Lower Extremity Artery 11/03/21 17:47 LEFT LOWER EXTREMITY ARTERIAL DOPPLER ULTRASOUND CLINICAL HISTORY: left foot infection COMPARISON STUDY: Left lower extremity arterial Doppler ultrasound January 27, 2020. TECHNIQUE: Color and duplex Doppler sonography of the arterial system of the left lower extremity was performed. FINDINGS: Ankle to brachial indices could not be obtained due to pain and tenderness. Mild plaque within the left lower extremity was noted. No elevated velocities were identified. Triphasic flow is identified within the left common femoral, profunda and superficial femoral arteries. There is biphasic flow within the left popliteal artery. There is predominantly monophasic flow within the left calf vessels. No vessel occlusion is identified by sonography. Subcutaneous edema was noted. IMPRESSION: 1. Mild atherosclerotic plaque within the left lower extremity. No evidence for a hemodynamically significant stenosis. 2. Predominantly monophasic flow within the left calf vessels. Vessels patent by sonography. ACT 112: Negative or not required by law. Electronically signed by: Calvin Preciado M.D. 11/04/2021 6:35 AM Hospital Course (1) Diabetic foot infection: Patient presents as above with non purulent drainage associated surrounding erythema to the toes and midfoot. Sloughing of skin noted however with debridement done recently. MRI obtained LEFT FOOT, NEGATIVE for osteomyelitis however limited examination as patient refused additional imaging after only 2 sequences. NO definite MR evidence Wound cx --> polymicrobial with MRSA, pseudomonas, Group B beta strep, alcaligenes faecalis, staph aureus BCx NGTD after 48 hours WBC now wnl, afebrile Continue would dressing changes, wound RN on consult during inpatient stay DISCONTINUED IVF as keeping up with PO 11/03 and has been on continuous IVF since admit ID consulted Rec'd checking CK --WNLl, continue Dapto/Cefepime through 11/09 Weekly CBCD, CMP, CK while on abx and fax labs to PCP for review If symptoms not improved by time f/u on 11/09, abx can be extended as indicated (also would rec repeat MRI) US guided IV in place. CM arranged IV abx Of note, given extensiveness of infection to LLE and possibly Charcot foot, obtained arterial duplex/vascular consult and consulted Orthopedics prior to discharge to see if possibly any need for re-vascularization/amputation Arterial duplex without significant vascular stenosis. Discussed with Dr Munoz and consult cancelled. Does note atherosclerotic plaque. No recent lipid panel but would rec obtaining with PCP outpatient and consider starting statin therapy for prevention-- can be done outpatient Ortho consulted --> felt no appreciable abscess/need for current intervention Discussed with patient about sedating for repeat MRI vs follow up outpatient and continue IV antibiotics and if worsens will need to consider repeating MRI outpatient under sedation. Patient stating would like to go home and will follow up with Dr Kwan and wound center. If podiatry unable to manage Dr Hernandez able to see in follow up outpatient (2) Open wound of foot: as above wound care at follow up/home health/abx as above (3) Cellulitis of left foot: As above, improving (4) DALE (acute kidney injury): MARCO A II on CKD III with Cr 2.04 on admit although appears baseline in 1.7-2s Renal US on 10/25 outpatient with no calculi, chronic medical renal disease, numerous complex/simple b/l cysts Renal dose meds/avoid nephrotoxic agents when able Recently started on losartan 50mg daily by PCP on 10/24 --> DISCONTINUED GIVEN BPs well controlled inpatient and Cr elevated on admit and is stable on repeat x 2-3 days to 1.5 with baseline closer to the 2s and recommended against this agent at discharge Continued f/u PCP outpatient Weekly labs on abx (5) Chronic atrial fibrillation: Rate controlled with Metoprolol which has been continued 100mg daily On coumadin 7.5mg // and 5mg all other days, has not gotten while inpatient and INR trending down INR 1.7 --> 1.4 but did given Lovenox x 1 and resumed coumadin 11/03 as hadn't been continued on admission Coumadin 7.5mg x 2 days, then resume usual schedule and given 100mg SQ lovenox 11/04 prior to discahrge with INR 1.4 Instructed to f/u AC clininc while on abx for continued monitoring --> also talked with pharmacist Anya, and they will coordinate follow up with coag clinic next week (6) Venous stasis dermatitis: Chronic with history of venous ablation - SCDS as able - [employer]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 Renal US earlier this year as abvoe Encouraged low salt diet F/u outpt (10) Diabetes: Carries diagnosis of pre-diabetes- with recorded HGB A1C 05/17 as 5.8 Encouraged weight loss/dietary modifications Follow up PCP for continued monitoring Obviously metformin not ideal choice if progresses given CKD but will need continued discussions with PCP on prevention (11) Hypothyroidism: chronic, TSH wnl 2.1 Continued 150mcg daily Plan Arranged for continued IV abx with Dapto/Cefepime through 11/09 Patient declined staying inpatient for repeat MRI and has been improving, labs stable and seen by orthopedics without need for intervention currently Close follow up with PCP/wound care and Dr Kwan and can extend IV antibiotics or arrange for repeat MRI outpatient if not having continued improvement Total Time Total Time Spent Total Time Spent (In Minutes): 60 Discharge Plan Discharge Items Patient Disposition: Home - Home Health Services Reason For Visit: FOOT INFECTION Discharge Diagnosis: Foot Infection, Left Goals: You have been hospitalized for an acute medical problem. During your stay at [facility], we have made an effort to correct the problem that brought you to the hospital while keeping you as comfortable as possible. Medications were used to bring your condition under control and your discharge instructions will include directions for any medications you should take after leaving the hospital. Please make sure you see your Primary Care Provider as part of your follow up plan. Activity: As commented below Non-emergency contact: Primary Care Provider and Specialist Call non-emergency contact if: you have any medication questions, your symptoms worsen, your pain is not controlled and your pain is concerning for you Follow-up/Referrals: Bina Zheng MD, PhD [Pathologist] - 11/07/21 9:30 am (for coumadin clinic) Jovita Mitchell DO, FACEP [Physician] - 11/07/21 1:00 pm (within the week) Ramiro Hernandez DO [Surgeon] - 12/06/21 9:15 am (1 month or sooner if not improving Please arrive to office visit 15 min early bring insurance card and ID with you to appointment) Clovis Heredia [Primary Care Provider] - 11/15/21 3:50 pm Tahira Kwan, SAULO [Physician] - (Dr. Kwan's office will call with an appointment date and time) Diet: Heart Healthy Addtl Attending Provider Instructions: You have been hospitalized for an infection to your left foot, not adequately treated as an outpatient. MRI of the ankle did not show any infection to the bone but it was not the best picture and as discussed with infectious disease regulatory affairs consultant, would recommend a course of continued IV antibiotics with Daptomycin once daily and Cefepime every 8 hours until November 09. They will be checking labs weekly while on these antibiotics to ensure they stay stable. You will need to see your PCP in the meantime and if not having continued improvement/resolution by that time they can choose to extend the course as needed. You may also need to consider repeat MRI in the future for better picture if continued issues. You have been set up with home IV antibiotics and placement of an ultrasound guided IV site for administration. Wound RN saw you while in the hospital and recommends irrigating all open areas to the foot and between the toes with saline and a 35cc syringe and 18g blunt needle, pat dry and place strips of aquacel Ag between the toes. Cover all open surfaces of the foot with aquacell Ag. Cover with ABD and secure with Kerlix. Please change every day and as needed based on your drainage. DO NOT ALLOW WET DRESSINGS to remain in place. Please follow up with the wound care center and eight section blower as scheduled. Please also keep your leg elevated to prevent any increased swelling/prevention of wound healing. We have DISCONTINUED your losartan as recently added for blood pressure control given improvement in your kidney function and your blood pressures have remained stable. This will need to be discussed with your PCP in follow-up. They could consider adding something like amlodipine if needed in the future but this does tend to increase lower leg swelling and will need to be taken into account. You may also want to check about repeating vitamin D levels as an outpatient given prior lows in system from a couple of years ago and no recent lab checks. You should take the 7.5mg of Coumadin for the next 2 days then resume your usual schedule and follow up for INR checks closely with coagulation clinic while on Coumadin for any adjustments as antibiotics can tend to cause increased elevations. We have also checked an arterial study to ensure blood flow is adequate to the foot. Discussed with vascular and you have adequate flow. Please continue to keep the foot elevated to prevent swelling and promote wound heling. Please follow up with your PCP in the next 7-10 days to monitor your progress. Please return to the ER if you have any fevers/chills, chest pain, shortness of breath, worsening pain or redness to your foot or for any other symptoms that are concerning for you. It has been a pleasure being a part of the medical team providing for you while you have been in the hospital. Take care! Pending Studies at Discharge: Yes Stand-Alone Forms: My [facility] Medications and DC Order Prescriptions: New acetaminophen 325 mg Tablet 650 mg PO Q4H PRNQty: 0 0RF Advanced Probiotic 625 mg (10 billion cell) Capsule 2 cap PO DAILY 14 Days Qty: 28 0RF cefepime 2 gram recon soln 2 g IV Q8H Qty: 10 0RF daptomycin 500 mg recon soln 675 mg IV DAILY Qty: 1 0RF Rx Instructions: administer over 30 mins Continued allopurinol 300 mg tablet 300 mg PO QAM warfarin 5 mg tablet See Rx Instructions PO UD Qty: 120 1RF Rx Instructions: 7.5mg q M//, 5mg x 4 days per [facility] PO use as directed; metoprolol succinate 100 mg Tablet Extended Release 24 Hr 100 mg PO HS Qty: 0 levothyroxine 150 mcg tablet 150 mcg PO QAM Discontinued losartan 50 mg tablet 50 mg PO DAILY doxycycline hyclate 100 mg tablet 100 mg PO BID Rx Instructions: ordered 10/27/21 for 14 days Discharge Orders: Discharge Order (Routine); Ordered 11/04/21 Ordered By: Desiree Gambino/Other Patient Handouts: Nutrition for Wound Healing Admission Data Admit Date/Time: 10/31/21 12:45 Attending Provider: Sydnie Kam Admit Provider: Phillip Holder Primary Care Provider: Clovis Heredia Other Providers: Brendan Aguilar ; Julio C Nguyen ; Doretha Thornton ; Danilo Hernandez I. ; Matt Cornejo II ; Cassidy Harris ; Eyal Hunter ; Dieudonne Hoang ; [facility] ; Ramiro Hernandez Other Interventions: Discharge Summary Assessment (RN) Last Done: 11/04/21 12:16 Supervising Physician Co-Signing Physician Notes PA Supervision Note: I did not personally see or examine the patient today, but I verified all peters points of PALOMO Chowdary's assessment and plan with the following exceptions/additions: None Coding Level of Care Code D/C DAY MANAGEMENT >30 MINS Diagnoses Diabetic foot infection E11.628; L08.9 Open wound of foot S91.309A Cellulitis of left foot L03.116 DALE (acute kidney injury) N17.9 Chronic atrial fibrillation I48.2 Venous stasis dermatitis I87.2 Sleep apnea G47.30 Hypertension I10 Chronic kidney disease, stage III (moderate) N18.3 Diabetes E11.9 Hypothyroidism E03.9
== END 2021-11-04 13:30 | disposition home health service (06) | DRG 638 ==
LOC: ED 10:08 → SUATTDRO 12:45 → EDINP 12:45 → 3N 22:30 → 3W 11-02 16:51

== ENCOUNTER 2021-12-05 12:13 | Inpatient (IN) ==
[2021-12-05 13:18] LABS: Basophils # (auto) 0.11 K/uL (0-0.2); Basophils % (auto) 0.9 %; Eosinophils # (auto) 0.65 K/uL (0-0.50); Eosinophils % (auto) 5.5 %; Hematocrit (blood only) 47.2 % (40.1-51.0); Hemoglobin 15.7 g/dl (14.0-18.0); Immature Granulocytes # (auto) 0.12 K/uL (0.00-0.02); Lymphocytes # (auto) 1.91 K/uL (1.2-3.4); Lymphocytes % (auto) 16.2 %; Mean Corpuscular Hemoglobin 31.1 pg (25.0-34.0); Mean Corpuscular Hgb Conc 33.3 g/dL (32.0-36.0); Mean Corpuscular Volume 93.5 fL (80.0-100.0); Mean Platelet Volume 11.1 fL (9.4-12.4); Monocytes # (auto) 0.53 K/uL (0.24-0.82); Monocytes % (auto) 4.5 %; Neutrophils # (auto) 8.44 K/uL (1.4-6.5); Neutrophils % (auto) 71.9 %; Platelet Count 244 K/uL (130-400); RDW Coefficient of Variation 14.6 % (11.5-14.5); RDW Standard Deviation 50.3 fL (36.4-46.3); Red Blood Count 5.05 M/uL (4.63-6.08); White Blood Count 11.76 K/ul (4.8-10.8)
[2021-12-05 13:24] LABS: INR 2.1 (0.9-1.1); Partial Thromboplastin Ratio 1.5; Prothrombin Time 21.9 Seconds (9.0-12.0)
[2021-12-05 13:54] LABS: Albumin Globulin Ratio 0.8 (0.9-2); Albumin Level 3.6 gm/dl (3.4-5.0); BUN Creatinine Ratio 24.3 (10-20); Bilirubin,Total 0.4 mg/dl (0.2-1.0); Calcium 9.2 mg/dl (8.5-10.1); Creatinine Clr Calc Pharmacy 56.1 ml/min; Est GFR (African American) 43.5 ml/min; Est GFR (Non-African American) 37.5 ml/min; Globulin 4.5 gm/dl (2.5-4.0); Magnesium 1.7 mg/dl (1.7-2.4); Potassium 4.7 mmol/L (3.5-5.1); Total Protein 8.1 gm/dl (6.0-8.3)
[2021-12-05] MEDS ORDERED: SODIUM CHLORIDE 0.9% 1000ML 500 ML IV ONE (15:16)
--- NOTE | 2021-12-05 15:21 | Emergency Department Note ---
History of Present Illness General Chief complaint: Infection Stated complaint: INFECTION IN L FOOT Time Seen by Provider: 12/05/21 14:59 Source: patient and family ( who is at the bedside) Mode of arrival: ambulatory Limitations: no limitations History of Present Illness This patient is a 75-year-old male who comes in after having ongoing issues with infection in his left foot. He was seen here in October 31 and was admitted for IV antibiotics I did a telehealth ID consult he was sent home with IV antibiotics. He came back in again on November 23 and the antibiotics were restarted as a started weeping again he did just finish 10 days more of IV antibiotics. He was seen this past by the wound center and then on Sunday by dermatology thought he was doing better he started doing worse on Sunday. His general practitioner could not see him so they recommended he come here Home health nurse also saw him and was concerned. He has had no fever chills he does have significant pain with walking no nausea vomiting no chest pain or shortness of breath no focal numbness weakness no trauma or injury. He is on chronic anticoagulation with Coumadin. He has a history of DVTs. Home Medications Medication Instructions Recorded Confirmed Type metoprolol succinate 100 mg 100 mg PO HS ##0 08/07/16 12/02/21 History tablet,extended release 24 hr allopurinol 300 mg tablet 300 mg PO QAM 01/02/19 12/02/21 History warfarin 5 mg tablet See Rx Instructions PO UD #120 tabs 03/08/21 12/02/21 Rx levothyroxine 150 mcg tablet 150 mcg PO QAM 10/31/21 12/02/21 History rosuvastatin 5 mg tablet (Crestor) 5 mg PO QAM 11/21/21 12/02/21 History cholecalciferol (vitamin D3) 25 25 mcg PO QAM 11/22/21 12/02/21 History mcg (1,000 unit) tablet (Vitamin D3) cefepime IV Q8H 11/23/21 12/02/21 History daptomycin IV Q24H 11/23/21 12/02/21 History Allergies Allergy/AdvReac Type Severity Reaction Status Date / Time sulfamethoxazole Allergy Severe Hives, Verified 12/02/21 14:45 [From skin Sulfamethoxazole-Trimethoprim] sloughing trimethoprim Allergy Severe Hives, Verified 12/02/21 14:45 [From skin Sulfamethoxazole-Trimethoprim] sloughing hydrochlorothiazide Allergy Unknown "shut down Verified 12/02/21 14:45 kidneys" Past Med/Surg History Medical History Atrial fibrillation, chronic BPH (benign prostatic hyperplasia) Cellulitis of left anterior lower leg Chronic atrial fibrillation Chronic kidney disease, stage III (moderate) Chronic ulcer of left foot Gout Hearing deficit History of basal cell carcinoma Hypertension Hypothyroidism Leukocytosis Obesity On anticoagulant therapy Penile hypospadias Prediabetes Renal cyst Sepsis Sleep apnea cpap Venous stasis ulcer Surgical History History of esophagogastroduodenoscopy (EGD) Family History Other Hearing loss No family history of adverse response to anesthesia No family history of bleeding disorder Denies family history of Heart disease Allergies Cancer Hypertension Stroke Asthma Social History Smoking Status: Never smoker Tobacco Type: Cigarettes packs per day: 1; Second Hand Exposure: No; Hx Alcohol Use: Yes Alcohol type: other Alcohol Intake Frequency Comment: 1 bottle of champagne / week Hx Substance Use: No Preferred Language: Trinidadian Communication Ability: Effective Visual Impairment: Limited Hearing Ability: Hard of Hearing Wellness Educator Required: No Beliefs That Will Affect Care: None marital status: Current Living Situation: Spouse current occupational status: retired How many Children do You have: 4 How many Children do You have Comment: 3 local, pt independent with care. Feels Safe at Home: Yes Assistive Devices: None Review of Systems A total of 10 systems reviewed and were otherwise negative Physical Exam Vital Signs Vital Signs - 24 hr 12/05/21 12:32 12/05/21 15:36 12/05/21 15:36 Temperature 36.6 C Temperature Source Oral Pulse Rate 81 61 Pulse Rate [Apical] 62 Pulse Rate from SpO2 Sensor Pulse Rhythm Regular Pulse Strength Normal Respiratory Rate 20 20 20 Respiratory Effort / Characteristics Non-Labored Spontaneous Non-Labored Spontaneous Respiratory Depth Normal Normal Respiratory Pattern Regular Regular Blood Pressure 154/107 H Blood Pressure [Right Arm] 134/92 Blood Pressure Mean 122 Blood Pressure Mean [Right Arm] 106 Blood Pressure Position Sitting Blood Pressure Position [Right Arm] Sitting Pulse Oximetry 94 98 98 Oxygen Delivery Method Room Air Room Air Room Air Sepsis Recent Fever Within 48 Hours No Sepsis New/Unexplained Change in Mental Status No Sepsis Action Taken by Nursing No Action Required 12/05/21 15:31 12/05/21 16:00 12/05/21 16:30 Temperature Temperature Source Pulse Rate 78 74 61 Pulse Rate [Apical] Pulse Rate from SpO2 Sensor 68 73 64 Pulse Rhythm Pulse Strength Respiratory Rate 23 18 16 Respiratory Effort / Characteristics Respiratory Depth Respiratory Pattern Blood Pressure 134/92 133/89 144/99 H Blood Pressure [Right Arm] Blood Pressure Mean 106 103 114 Blood Pressure Mean [Right Arm] Blood Pressure Position Blood Pressure Position [Right Arm] Pulse Oximetry 98 96 99 Oxygen Delivery Method Sepsis Recent Fever Within 48 Hours Sepsis New/Unexplained Change in Mental Status Sepsis Action Taken by Nursing General: Well developed well nourished male who appears in no acute distress, breathing comfortably on room air. Normal speech HEENT: Normal cephalic atraumatic. Pupils are equal round and reactive to light. Extraocular movements are intact. Oropharynx is pink with moist mucous membranes. No swelling of the mouth lips or tongue. Neck: Supple with a midline trachea. No meningeal signs or stiffness, no JVD or bruits. No Stridor. Chest: Clear to auscultation bilaterally. No wheezes or rhonchi. No increased work of breathing. Heart: Regular rate and rhythm without murmurs or gallops. Abdomen: Soft nontender, nondistended without rebound guarding or rigidity. Extremities: No cyanosis clubbing or edema. No calf tenderness or assymetry he has chronic vascular changes of the left leg. The left foot is red and swollen compared to the there is some weeping and skin sloughing in places but no identifiable ulcer. Spine/Back. Non tender to palpation. No CVA tenderness Skin: Good turgor without rashes. Neurologic exam: Cranial nerves two through 12 are intact. Motor and sensation are intact and symmetrical throughout. Course Administered Medications Discontinued Medications Sodium Chloride (Nss 1000ml) 500 mls @ 999 mls/hr IV .Q31M ONE Stop: 12/05/21 15:46 Last Infusion: 12/05/21 16:44 Dose: 0 mls/hr Documented By: Admin: 12/05/21 15:35 Dose: 999 mls/hr Documented By: KANIKA Cefepime HCl 2,000 mg/ Syringe 20 mls @ 5 mls/min IV NOW STA Stop: 12/05/21 15:40 Last Admin: 12/05/21 16:44 Dose: 5 mls/min Documented By: BLACK Daptomycin 650 mg/ Syringe 13 mls @ 6.5 mls/min IV NOW STA; Protocol Stop: 12/05/21 15:39 Last Admin: 12/05/21 16:44 Dose: 6.5 mls/min Documented By: BLACK Medical Decision Making Differential Diagnosis Cellulitis, osteomyelitis,, DVT, arterial compromise, electrolyte metabolic abnormality Medical Records Attestation: I reviewed the patient's medical records. Home Medications Current Medication List: was personally reviewed by me Laboratory Data Attestation: I reviewed the patient's lab results. Result diagrams: 12/05/21 12:55 12/05/21 12:55 Lab Results 12/05/21 12/05/21 12/05/21 Range/Units 12:55 12:55 12:55 WBC 11.76 H (4.8-10.8) K/ul RBC 5.05 (4.63-6.08) M/uL Hgb 15.7 (14.0-18.0) g/dl Hct 47.2 (40.1-51.0) % MCV 93.5 (80.0-100.0) fL MCH 31.1 (25.0-34.0) pg MCHC 33.3 (32.0-36.0) g/dL RDW Std Deviation 50.3 H (36.4-46.3) fL RDW Coeff of [place] 14.6 H (11.5-14.5) % Plt Count 244 (130-400) K/uL MPV 11.1 (9.4-12.4) fL Immature Gran % (Auto) 1.0 % Neut % (Auto) 71.9 % Lymph % (Auto) 16.2 % [place] % (Auto) 4.5 % Eos % (Auto) 5.5 % Baso % (Auto) 0.9 % Neut # (Auto) 8.44 H (1.4-6.5) K/uL Lymph # (Auto) 1.91 (1.2-3.4) K/uL [place] # (Auto) 0.53 (0.24-0.82) K/uL Eos # (Auto) 0.65 H (0-0.50) K/uL Baso # (Auto) 0.11 (0-0.2) K/uL Immature Gran # (Auto) 0.12 H (0.00-0.02) K/uL ESR (0-20) mm/hr PT 21.9 H (9.0-12.0) Seconds INR 2.1 H (0.9-1.1) APTT 41.0 H (21.0-31.0) Seconds PTT Ratio 1.5 Sodium 133 L (136-145) mmol/L Potassium 4.7 (3.5-5.1) mmol/L Chloride 106 (98-107) mmol/L Carbon Dioxide 19 L (21-32) mmol/L Anion Gap 8 (3-11) BUN 42 H (6-23) mg/dl Creatinine 1.73 H (0.6-1.4) mg/dl Est Cr Clr Drug Dosing 56.1 ml/min Est GFR ( Amer) 43.5 ml/min Est GFR (Non-Af Amer) 37.5 ml/min BUN/Creatinine Ratio 24.3 H (10-20) Glucose 92 (70-99(Fasting)) mg/dl Lactate Calcium 9.2 (8.5-10.1) mg/dl Magnesium 1.7 (1.7-2.4) mg/dl Total Bilirubin 0.4 (0.2-1.0) mg/dl AST 23 (13-39) U/L ALT 34 (7-52) U/L Alkaline Phosphatase 74 (34-104) U/L C-Reactive Protein (0-0.5) mg/dl Total Protein 8.1 (6.0-8.3) gm/dl Albumin 3.6 (3.4-5.0) gm/dl Globulin 4.5 H (2.5-4.0) gm/dl Albumin/Globulin Ratio 0.8 L (0.9-2) SARS-CoV-2, RNA, NAAT (NEGATIVE) 12/05/21 12/05/21 12/05/21 Range/Units 12:55 12:55 14:19 WBC (4.8-10.8) K/ul RBC (4.63-6.08) M/uL Hgb (14.0-18.0) g/dl Hct (40.1-51.0) % MCV (80.0-100.0) fL MCH (25.0-34.0) pg MCHC (32.0-36.0) g/dL RDW Std Deviation (36.4-46.3) fL RDW Coeff of [place] (11.5-14.5) % Plt Count (130-400) K/uL MPV (9.4-12.4) fL Immature Gran % (Auto) % Neut % (Auto) % Lymph % (Auto) % [place] % (Auto) % Eos % (Auto) % Baso % (Auto) % Neut # (Auto) (1.4-6.5) K/uL Lymph # (Auto) (1.2-3.4) K/uL [place] # (Auto) (0.24-0.82) K/uL Eos # (Auto) (0-0.50) K/uL Baso # (Auto) (0-0.2) K/uL Immature Gran # (Auto) (0.00-0.02) K/uL ESR 116 H (0-20) mm/hr PT (9.0-12.0) Seconds INR (0.9-1.1) APTT (21.0-31.0) Seconds PTT Ratio Sodium (136-145) mmol/L Potassium (3.5-5.1) mmol/L Chloride (98-107) mmol/L Carbon Dioxide (21-32) mmol/L Anion Gap (3-11) BUN (6-23) mg/dl Creatinine (0.6-1.4) mg/dl Est Cr Clr Drug Dosing ml/min Est GFR ( Amer) ml/min Est GFR (Non-Af Amer) ml/min BUN/Creatinine Ratio (10-20) Glucose (70-99(Fasting)) mg/dl Lactate TNP Calcium (8.5-10.1) mg/dl Magnesium (1.7-2.4) mg/dl Total Bilirubin (0.2-1.0) mg/dl AST (13-39) U/L ALT (7-52) U/L Alkaline Phosphatase (34-104) U/L C-Reactive Protein 0.70 H (0-0.5) mg/dl Total Protein (6.0-8.3) gm/dl Albumin (3.4-5.0) gm/dl Globulin (2.5-4.0) gm/dl Albumin/Globulin Ratio (0.9-2) SARS-CoV-2, RNA, NAAT (NEGATIVE) 12/05/21 12/05/21 Range/Units 15:34 15:44 WBC (4.8-10.8) K/ul RBC (4.63-6.08) M/uL Hgb (14.0-18.0) g/dl Hct (40.1-51.0) % MCV (80.0-100.0) fL MCH (25.0-34.0) pg MCHC (32.0-36.0) g/dL RDW Std Deviation (36.4-46.3) fL RDW Coeff of [place] (11.5-14.5) % Plt Count (130-400) K/uL MPV (9.4-12.4) fL Immature Gran % (Auto) % Neut % (Auto) % Lymph % (Auto) % [place] % (Auto) % Eos % (Auto) % Baso % (Auto) % Neut # (Auto) (1.4-6.5) K/uL Lymph # (Auto) (1.2-3.4) K/uL [place] # (Auto) (0.24-0.82) K/uL Eos # (Auto) (0-0.50) K/uL Baso # (Auto) (0-0.2) K/uL Immature Gran # (Auto) (0.00-0.02) K/uL ESR (0-20) mm/hr PT (9.0-12.0) Seconds INR (0.9-1.1) APTT (21.0-31.0) Seconds PTT Ratio Sodium (136-145) mmol/L Potassium (3.5-5.1) mmol/L Chloride (98-107) mmol/L Carbon Dioxide (21-32) mmol/L Anion Gap (3-11) BUN (6-23) mg/dl Creatinine (0.6-1.4) mg/dl Est Cr Clr Drug Dosing ml/min Est GFR ( Amer) ml/min Est GFR (Non-Af Amer) ml/min BUN/Creatinine Ratio (10-20) Glucose (70-99(Fasting)) mg/dl Lactate 1.5 Calcium (8.5-10.1) mg/dl Magnesium (1.7-2.4) mg/dl Total Bilirubin (0.2-1.0) mg/dl AST (13-39) U/L ALT (7-52) U/L Alkaline Phosphatase (34-104) U/L C-Reactive Protein (0-0.5) mg/dl Total Protein (6.0-8.3) gm/dl Albumin (3.4-5.0) gm/dl Globulin (2.5-4.0) gm/dl Albumin/Globulin Ratio (0.9-2) SARS-CoV-2, RNA, NAAT NEGATIVE (NEGATIVE) Imaging Data Attestation: I personally reviewed and interpreted this imaging study as follows: My Impression: Left foot xray- Chronic changes but no definite osteomyelitis or fracture Radiologist's Impression: Foot X-Ray 12/05/21 15:22 XR foot LT 2V CLINICAL HISTORY: recurrent cellulitis, eval for osteo TECHNIQUE: 2 views of the left foot were obtained. Comparison: Comparison is made to left foot radiographs 11/22/2021 FINDINGS: No evidence of bony erosion is seen. Degenerative changes are seen. Soft tissue swelling is seen about the foot. A radiodensity lateral to the fifth digit is nonspecific. IMPRESSION: 1. No radiographic evidence of osteomyelitis. If clinical concern remains, MRI is a more sensitive modality. 2. A radiodensity lateral to the fifth digit is nonspecific, correlation with clinical exam is recommended to exclude foreign body. ACT 112: Negative or not required by law. Electronically signed by: Gideon Monreal M.D. 12/05/2021 5:06 PM [facility] Narrative This Patient comes in as described above he is ongoing issues with his left foot. It has had 2 outpatient courses of antibiotics and bleeding of course and stopping them a couple days ago now he is on and weeping again. He has no systemic complaints is a lot of pain. Blood work was obtained we did review his medication history I did order an x-ray of the foot. I have reviewed his old records when he was in the hospital in October he did have an arterial ultrasound of the leg. It is white count and sed rate are elevated as is the CRP. I did discuss this with her ED pharmacist who recommended Zosyn and daptomycin which she had ordered for him. The patient was also COVID tested. I did order ultrasound to rule out DVT. I do think he will need further imaging and likely repeat MRI to rule out osteomyelitis. I do think he needs to be admitted for IV antibiotics and further treatment and evaluation for failed outpatient cellulitis. I have consulted Dr. Castillo to see him in the ED. Continous cardiac monitoring: Orders placed in EMR for continuous cardiac monitoring. Upon my interpretation patient had to be in normal sinus rhythm with a rate of 75. Impression & Plan Cellulitis of left lower extremity, Anticoagulated on Coumadin, Chronic kidney disease, stage III (moderate), Lab test negative for COVID-19 virus Discharge Plan Visit Data Chief Complaint: Infection Stated Complaint: INFECTION IN L FOOT ED Provider: Jorge A Vazquez Discharge Problem: Cellulitis of left lower extremity, Anticoagulated on Coumadin, Chronic kidney disease, stage III (moderate), Lab test negative for COVID-19 virus Patient Disposition: Admitted As Inpatient Discharge Instructions Interventions: ED Discharge Assessment Last Done: 12/05/21 20:55
[2021-12-05] MEDS ORDERED: CEFEPIME 2,000 MG in SYRINGE 0 ML IV STA (15:37)
[2021-12-05] MEDS ORDERED: DAPTOmycin 650 MG in SYRINGE 0 ML IV STA (15:38)
--- NOTE | 2021-12-05 17:07 | History & Physical Report ---
Date of Service December 05, 2021 Assessment & Plan (1) Cellulitis of left foot: Plan: Patient presents as above with non purulent drainage associated surrounding erythema to the toes and midfoot. Sloughing of skin noted however with debridement done recently. - Admit to medical obtain MRI of the left foot with and without contrast to evaluate for osteo - Cultures as above - Continue daptomycin and switch to Ceftazidime based on culture results - Blood cultures pending - WCN consult placed for evaluation and dressings - Will leave open to air at this time as wound is moist - PT/OT consultation - will check inflammatory markers (2) Hypothyroidism: Plan: resume home meds (3) Diabetic foot infection: Plan: as above. (4) Anticoagulated on Coumadin: Plan: Rate controlled with Metoprolol - On Warfarin (5) Nonischemic cardiomyopathy: Plan: will diurese patient (6) DVT prophylaxis: History of Present Illness Chief Complaint: swelling of left foot. Primary Care Provider: Clovis Heerdia 75 YOM with past medical history of: Obesity, Hypothyroidism, Afib (on Warfarin), CKD, HTN, Gout, PFO, DERREK (CPAP 4cm H20 at home), Great Saphenous Vein ablation, DMII (not on any meds), chronic lymphedema and dermatitis (desoximetasone 0.25%). Patient has had multiple admissions for his left foot. Patient states over the past week, his foot has become more swollen. ANd over the past few days, more painful and this has been accompanied by drainage of clear fluid. Patient denies any fever, chils nausea, vomiting. Patient has had multiple admissions with multiple treatments of antibiotics, which have improved, but then worsen once antibiotic were removed Allergies Allergy/AdvReac Type Severity Reaction Status Date / Time sulfamethoxazole Allergy Severe Hives, Verified 12/02/21 14:45 [From skin Sulfamethoxazole-Trimethoprim] sloughing trimethoprim Allergy Severe Hives, Verified 12/02/21 14:45 [From skin Sulfamethoxazole-Trimethoprim] sloughing hydrochlorothiazide Allergy Unknown "shut down Verified 12/02/21 14:45 kidneys" Home Medications Medication Instructions Recorded Confirmed Type metoprolol succinate 100 mg 100 mg PO HS ##0 08/07/16 12/02/21 History tablet,extended release 24 hr allopurinol 300 mg tablet 300 mg PO QAM 01/02/19 12/02/21 History warfarin 5 mg tablet See Rx Instructions PO UD #120 tabs 03/08/21 12/02/21 Rx levothyroxine 150 mcg tablet 150 mcg PO QAM 10/31/21 12/02/21 History rosuvastatin 5 mg tablet (Crestor) 5 mg PO QAM 11/21/21 12/02/21 History cholecalciferol (vitamin D3) 25 25 mcg PO QAM 11/22/21 12/02/21 History mcg (1,000 unit) tablet (Vitamin D3) cefepime IV Q8H 11/23/21 12/02/21 History daptomycin IV Q24H 11/23/21 12/02/21 History Past Med/Surg History Medical History Atrial fibrillation, chronic BPH (benign prostatic hyperplasia) Cellulitis of left anterior lower leg Chronic atrial fibrillation Chronic kidney disease, stage III (moderate) Chronic ulcer of left foot Gout Hearing deficit History of basal cell carcinoma Hypertension Hypothyroidism Leukocytosis Obesity On anticoagulant therapy Penile hypospadias Prediabetes Renal cyst Sepsis Sleep apnea cpap Venous stasis ulcer Surgical History History of esophagogastroduodenoscopy (EGD) Family History Other Hearing loss No family history of adverse response to anesthesia No family history of bleeding disorder Denies family history of Heart disease Allergies Cancer Hypertension Stroke Asthma Social History Smoking Status: Former smoker Tobacco Type: Cigarettes packs per day: 1; Second Hand Exposure: No; Hx Alcohol Use: Yes Alcohol type: hard liquor Alcohol Intake Frequency Comment: 1 bottle of champagne / week Hx Substance Use: No Preferred Language: Guamanian Communication Ability: Effective Visual Impairment: Limited Hearing Ability: Hard of Hearing Pharmacy Technician Trainee Required: No Beliefs That Will Affect Care: None marital status: Current Living Situation: Spouse current occupational status: retired How many Children do You have: 4 How many Children do You have Comment: 3 local, pt independent with care. Feels Safe at Home: Yes Safety Concerns: Feels Safe At This Time Assistive Devices: Cane and Walker Review of Systems Review of Systems: All systems reviewed & are unremarkable except as noted in HPI & below Physical Exam Physical Exam: General: awake, alert, no apparent distress Head: Normocephalic, atraumatic ENT: PERRL, EOMI, no pharyngeal exudate, mucous membranes moist Neuro: AAO x 3, speech clear and appropriate, strength intact bilaterally 5/5, sensation intact and equal all extremities and dermatomes, no pronator drift Chest: equal rise and fall of the chest, no accessory muscle use, no heaves or thrills, Clear to auscultation, on room air, Cardiac: RRR, skin warm dry, +3 edema to left foot both extending to mid calf GI: NABS x 4 quadrants, soft, nontender to palpation, no rebound, guarding or tenderness : Spontaneously voiding, no pain, no CVA tenderness, Psych: Normal mood and affect Skin: (+) sloughing of skin and drainage left foot, malodorous, pain with palpation of lateral foot and toes. Does remain with ability to flex and extend toes. Results & Data Results & Data ([facility]) Vital Signs (Past 12 Hours) Vital Signs Temp Pulse Pulse Resp BP BP Pulse Ox 12/05/21 16:30 61 16 144/99 H 99 12/05/21 16:00 74 18 133/89 96 12/05/21 15:31 78 23 134/92 98 12/05/21 15:36 61 20 98 12/05/21 15:36 62 20 134/92 98 12/05/21 12:32 36.6 C 81 20 154/107 H 94 O2 Del Method 12/05/21 16:30 12/05/21 16:00 12/05/21 15:31 12/05/21 15:36 Room Air 12/05/21 15:36 Room Air 12/05/21 12:32 Room Air PG Care Time/CCT Total # of Minutes Spent Total Time Spent with Patient: Total time spent is greater than 50% in coordination of care (as documented) at patient's floor/unit and/or counseling patient: Coding Level of Care Code 65771 Initial Inpt Care Lvl 3 Diagnoses Cellulitis of left foot L03.116 Hypothyroidism E03.9 Diabetic foot infection E11.628; L08.9 Anticoagulated on Coumadin Z79.01 Nonischemic cardiomyopathy I42.8 DVT prophylaxis Z29.9 Time Spent (min) 35
--- NOTE | 2021-12-05 17:08 | XRay Report ---
XR foot LT 2V CLINICAL HISTORY: recurrent cellulitis, eval for osteo TECHNIQUE: 2 views of the left foot were obtained. Comparison: Comparison is made to left foot radiographs 11/22/2021 FINDINGS: No evidence of bony erosion is seen. Degenerative changes are seen. Soft tissue swelling is seen abou t the foot. A radiodensity lateral to the fifth digit is nonspecific. IMPRESSION: 1. No radiographic evidence of osteomyelitis. If clinical concern remains, MRI is a more sensitive m odality. 2. A radiodensity lateral to the fifth digit is nonspecific, correlation with clinical exam is recom mended to exclude foreign body. ACT 112: Negative or not required by law. Electronically signed by: Gideon Monreal M.D. 12/05/2021 5:06 PM
[2021-12-05] MEDS ORDERED: ACETAMINOPHEN 325 MG TAB PO PRN (17:22)
[2021-12-06] MEDS: METOPROLOL SUCC 50MG EXT REL TAB PO SCH ×2 (00:25→20:33)
[2021-12-06] MEDS: WARFARIN SOD 7.5 MG TAB PO SCH (00:25)
[2021-12-06 05:41] LABS: Appearance Urine Clear (Clear); Bacteria Urine Automated Negative (Negative); Bilirubin Urine Negative (Negative); Blood Urine 1+ (Negative); Color Urine Yellow; Epithelial Cell Urine Auto 0-5 /lpf (0-5); Glucose Urine UA Negative (Negative); Ketones Urine Negative (Negative); Leukocyte Esterase Urine Negative (Negative); Nitrite Urine Negative (Negative); Protein Urine 2+ (Negative); RBC Urine Automated 0-4 /hpf (0-4); Specific Gravity Urine 1.018 (1.000-1.030); Urobilinogen Urine Negative (Negative)
[2021-12-06] MEDS: LEVOTHYROXINE SODIUM 150 MCG TABLET PO SCH (05:44)
--- NOTE | 2021-12-06 06:39 | Ultrasound Report ---
LEFT LOWER EXTREMITY VENOUS DOPPLER HISTORY: Acute pain and swelling of the left lower extremity eval for dvt COMPARISON STUDY: Doppler study 03/31/2020 FINDINGS: There is normal compressibility, flow, and augmentation within the left lower extremity cherelle p venous system. Limited evaluation of the calf veins secondary to subcutaneous edema and patient bod y habitus. IMPRESSION: No DVT within the left lower extremity. ACT 112: Negative or not required by law. Electronically signed by: Peter Castillo M.D. 12/06/2021 6:38 AM
[2021-12-06] MEDS: allopurinoL 300 MG TAB PO SCH (09:09)
[2021-12-06] MEDS: ROSUVASTATIN CALCIUM 5 MG TAB PO SCH (09:09)
[2021-12-06] MEDS: CHOLECALCIFEROL 1,000 UNITS 25 MCG TAB PO SCH (09:09)
--- NOTE | 2021-12-06 11:33 | Magnetic Resonance Report ---
MR foot LT w/o con HISTORY: 75 years-old Male severe cellulitis of whole/ ESR>100 chronic soft tissue infection of the left foot and ankle. Reported soft tissue infection with history of basal cell carcinoma. COMPARISON: MRI left foot 8 2021, left foot radiographs 12/05/2021 TECHNIQUE: Multiplanar multisequence MRI of the left foot was obtained without the use of IV contrast . FINDINGS: Motion degraded exam. Cortical thickening of the mid diaphyseal fourth metatarsal redemonstrated comp atible with a healed chronic fracture deformity. There is moderate to severe joint space narrowing wi th subchondral sclerosis and cystic change within the midfoot. No acute fracture, dislocation or osse ous erosion identified. Hallux valgus. Extension of the metatarsal-phalangeal joints. Moderate to extensive subcutaneous edema is most pronounced dorsally. No focal fluid collection ident ified to suggest abscess. There is diffuse atrophy with edema of the intrinsic musculature. Visualize d imaged flexor and extensor tendons appear intact. The Lisfranc ligament is identified and is intact . IMPRESSION: 1. Motion degraded exam. 2. No acute fracture, dislocation or osseous erosion to suggest acute osteomyelitis. 3. Healed chronic fourth metatarsal fracture. 4. Nonspecific diffuse subcutaneous edema with chronic denervation changes of the musculature. 5. 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 ACT 112: Negative or not required by law. The above report was generated using voice recognition software. It may contain grammatical, syntax o r spelling errors. Electronically signed by: Peter Castillo M.D. 12/06/2021 11:32 AM
[2021-12-06] MEDS: DAPTOmycin 650 MG in SYRINGE 0 ML IV SCH (16:24)
[2021-12-06] MEDS: WARFARIN SOD 5 MG TAB PO SCH (16:29)
[2021-12-06 18:48] LABS: Hematocrit (blood only) 48.6 % (40.1-51.0); Hemoglobin 15.8 g/dl (14.0-18.0); Mean Corpuscular Hgb Conc 32.5 g/dL (32.0-36.0); Mean Corpuscular Volume 95.5 fL (80.0-100.0); Mean Platelet Volume 10.9 fL (9.4-12.4); Platelet Count 244 K/uL (130-400); RDW Coefficient of Variation 14.6 % (11.5-14.5); RDW Standard Deviation 51.6 fL (36.4-46.3); Red Blood Count 5.09 M/uL (4.63-6.08); White Blood Count 11.39 K/ul (4.8-10.8)
[2021-12-06 19:09] LABS: BUN Creatinine Ratio 19.7 (10-20); Calcium 8.9 mg/dl (8.5-10.1); Est GFR (African American) 43.5 ml/min; Est GFR (Non-African American) 37.5 ml/min; Potassium 4.7 mmol/L (3.5-5.1)
--- NOTE | 2021-12-06 22:27 | Hospitalist Progress Note ---
Date of Service December 06, 2021 Assessment & Plan (1) Cellulitis of left foot: Plan: Patient presents as above with non purulent drainage associated surrounding erythema to the toes and midfoot. Sloughing of skin noted however with debridement done recently. - Admit to medical obtain MRI of the left foot with and without contrast to evaluate for osteo - Cultures as above -based on cultures - Continue daptomycin and switch to Ceftazidime based on culture results - Blood cultures pending - WCN consult placed for evaluation and dressings - Will leave open to air at this time as wound is moist - PT/OT consultation - will trend inflammatory markers MRI is negative. (2) Hypothyroidism: Plan: resume home meds (3) Diabetic foot infection: Plan: as above. (4) Anticoagulated on Coumadin: Plan: Rate controlled with Metoprolol - On Warfarin (5) Nonischemic cardiomyopathy: Plan: will consider diurese patient (6) DALE (acute kidney injury): Plan: DALE on CKD stage 3b will monitor creatinine. will check BNP and likely diurese. may consider zimmerman catheter (7) DVT prophylaxis: Admission and Anticipated Discharge Date Admission Date: December 05, 2021 Subjective Patient reports mild improvement, decreased pain, decreased swelling. Review of Systems Review of Systems: All systems reviewed & are unremarkable except as noted in HPI & below Physical Exam Physical Exam: General: awake, alert, no apparent distress Head: Normocephalic, atraumatic ENT: PERRL, EOMI, no pharyngeal exudate, mucous membranes moist Neuro: AAO x 3, speech clear and appropriate, strength intact bilaterally 5/5, sensation intact and equal all extremities and dermatomes, no pronator drift Chest: equal rise and fall of the chest, no accessory muscle use, no heaves or thrills, Clear to auscultation, on room air, Cardiac: RRR, skin warm dry, +3 edema to left foot both extending to mid calf GI: NABS x 4 quadrants, soft, nontender to palpation, no rebound, guarding or tenderness : Spontaneously voiding, no pain, no CVA tenderness, Psych: Normal mood and affect Skin: (+) sloughing of skin and drainage left foot, malodorous, pain with palpation of lateral foot and toes. Does remain with ability to flex and extend toes. Results & Data Results & Data ([facility]) Vital Signs (Past 12 Hours) Vital Signs Temp Pulse Resp BP BP Pulse Ox O2 Del Method 12/06/21 21:58 Room Air 12/06/21 21:15 36.6 C 68 18 122/84 95 Room Air 12/06/21 20:37 75 116/71 12/06/21 14:25 37 C 68 20 110/72 94 Room Air PG Care Time/CCT Total # of Minutes Spent Total Time Spent with Patient: Total time spent is greater than 50% in coordination of care (as documented) at patient's floor/unit and/or counseling patient: Coding Level of Care Code 53850 Subseq Hosp Care Lvl 2 Diagnoses Cellulitis of left foot L03.116 Hypothyroidism E03.9 Diabetic foot infection E11.628; L08.9 Anticoagulated on Coumadin Z79.01 Nonischemic cardiomyopathy I42.8 DALE (acute kidney injury) N17.9 DVT prophylaxis Z29.9 Time Spent (min) 25
[2021-12-07] MEDS: LEVOTHYROXINE SODIUM 150 MCG TABLET PO SCH (06:10)
[2021-12-07 08:54] LABS: INR 2.6 (0.9-1.1); Prothrombin Time 26.1 Seconds (9.0-12.0)
[2021-12-07] MEDS: allopurinoL 300 MG TAB PO SCH (08:56)
[2021-12-07] MEDS: CHOLECALCIFEROL 1,000 UNITS 25 MCG TAB PO SCH (08:56)
[2021-12-07] MEDS: ROSUVASTATIN CALCIUM 5 MG TAB PO SCH (08:56)
[2021-12-07] MEDS ORDERED: PERFLUTREN LIPID MICROSPHERE (DEFINITY) IV ONE (09:02)
--- NOTE | 2021-12-07 11:27 | XCELERA ---
[id number]
[2021-12-07 14:00] LABS: Hematocrit (blood only) 47.3 % (40.1-51.0); Hemoglobin 15.7 g/dl (14.0-18.0); Mean Corpuscular Hemoglobin 31.3 pg (25.0-34.0); Mean Corpuscular Hgb Conc 33.2 g/dL (32.0-36.0); Mean Corpuscular Volume 94.2 fL (80.0-100.0); Mean Platelet Volume 11.2 fL (9.4-12.4); Platelet Count 262 K/uL (130-400); RDW Coefficient of Variation 14.7 % (11.5-14.5); RDW Standard Deviation 51.2 fL (36.4-46.3); Red Blood Count 5.02 M/uL (4.63-6.08)
[2021-12-07 14:23] LABS: BUN Creatinine Ratio 17.8 (10-20); Calcium 9.2 mg/dl (8.5-10.1); Creatinine Clr Calc Pharmacy 55.7 ml/min; Est GFR (African American) 43.2 ml/min; Est GFR (Non-African American) 37.3 ml/min; Potassium 4.9 mmol/L (3.5-5.1)
[2021-12-07] MEDS: DAPTOmycin 650 MG in SYRINGE 0 ML IV SCH (16:28)
[2021-12-07] MEDS: WARFARIN SOD 7.5 MG TAB PO SCH (16:38)
[2021-12-07] MEDS: METOPROLOL SUCC 50MG EXT REL TAB PO SCH (20:10)
--- NOTE | 2021-12-07 21:13 | Hospitalist Progress Note ---
Date of Service December 07, 2021 Assessment & Plan (1) Cellulitis of left foot: Plan: Patient presents as above with non purulent drainage associated surrounding erythema to the toes and midfoot. Sloughing of skin noted however with debridement done recently. - Admit to medical obtain MRI of the left foot with and without contrast to evaluate for osteo - Cultures as above -based on cultures from prior ER visit Pseudomonas aeruginosa Staph aureus MRSA Alcaligenes faecalis Resistance to cefepime which explains lack of improvement - Continue daptomycin and switch to Ceftazidime based on culture results - Blood cultures pending - WCN consult placed for evaluation and dressings - PT/OT consultation - will trend inflammatory markers MRI is negative.\ for osteomyelitis Patient will need 4 weeks of antibiotics at discharge. Currently has an ultrasound guided line. Will likely need to replace ultrasound giuded line with another prior to discharge. Possible discharge over next 24-48 hours. will obtain PT/OT Patient has been seen walking barefoot when he was in the ER. Patient needs to not have his barefoot touch ground, at minimum with adequate dressing, but preferably special shoe. (2) Hypothyroidism: Plan: resume home meds (3) Diabetic foot infection: Plan: as above. (4) Anticoagulated on Coumadin: Plan: Rate controlled with Metoprolol - On Warfarin (5) Nonischemic cardiomyopathy: Plan: will consider diurese patient (6) DALE (acute kidney injury): Plan: DALE on CKD stage 3b will monitor creatinine. will check BNP and likely diurese. may consider zimmerman catheter if so. Due to clincal improvement on 12/07, held off diuresing. (7) DVT prophylaxis: Plan: warfarin Admission and Anticipated Discharge Date Admission Date: December 05, 2021 Subjective Patient reports no new symptoms. Staes the pain and swelling have improved. Review of Systems Review of Systems: All systems reviewed & are unremarkable except as noted in HPI & below Physical Exam Physical Exam: General: awake, alert, no apparent distress Head: Normocephalic, atraumatic ENT: PERRL, EOMI, no pharyngeal exudate, mucous membranes moist Neuro: AAO x 3, speech clear and appropriate, strength intact bilaterally 5/5, sensation intact and equal all extremities and dermatomes, no pronator drift Chest: equal rise and fall of the chest, no accessory muscle use, no heaves or thrills, Clear to auscultation, on room air, Cardiac: RRR, skin warm dry, +3 edema to left foot both extending to mid calf GI: NABS x 4 quadrants, soft, nontender to palpation, no rebound, guarding or tenderness : Spontaneously voiding, no pain, no CVA tenderness, Psych: Normal mood and affect Skin: decreased erythema and swelling of foot, remains edematous, just improved from admission. Does remain with ability to flex and extend toes. Results & Data Results & Data ([facility]) Vital Signs (Past 12 Hours) Vital Signs Temp Pulse Resp BP BP Pulse Ox O2 Del Method 12/07/21 20:05 36.7 C 65 16 139/79 94 Room Air 12/07/21 14:29 36.5 C 69 17 134/78 94 Room Air PG Care Time/CCT Total # of Minutes Spent Total Time Spent with Patient: Total time spent is greater than 50% in coordination of care (as documented) at patient's floor/unit and/or counseling patient: Coding Level of Care Code 49582 Subseq Hosp Care Lvl 3 Diagnoses Cellulitis of left foot L03.116 Hypothyroidism E03.9 Diabetic foot infection E11.628; L08.9 Anticoagulated on Coumadin Z79.01 Nonischemic cardiomyopathy I42.8 DALE (acute kidney injury) N17.9 DVT prophylaxis Z29.9 Time Spent (min) 35
[2021-12-08] MEDS: LEVOTHYROXINE SODIUM 150 MCG TABLET PO SCH (05:52)
[2021-12-08 08:53] LABS: INR 2.5 (0.9-1.1); Prothrombin Time 25.3 Seconds (9.0-12.0)
[2021-12-08] MEDS: CHOLECALCIFEROL 1,000 UNITS 25 MCG TAB PO SCH (08:58)
[2021-12-08] MEDS: ROSUVASTATIN CALCIUM 5 MG TAB PO SCH (08:58)
[2021-12-08] MEDS: allopurinoL 300 MG TAB PO SCH (08:58)
[2021-12-08 11:23] LABS: C Reactive Protein 0.94 mg/dl (0-0.5)
--- NOTE | 2021-12-08 13:30 | Hospitalist Progress Note ---
Date of Service December 08, 2021 Assessment & Plan (1) Cellulitis of left foot: Plan: Patient presents as above with non purulent drainage associated surrounding erythema to the toes and midfoot. Sloughing of skin noted however with debridement done recently. - Admit to medical obtain MRI of the left foot with and without contrast to evaluate for osteo - Cultures as above -based on cultures from prior ER visit Pseudomonas aeruginosa Staph aureus MRSA Alcaligenes faecalis Resistance to cefepime which explains lack of improvement - Continue daptomycin and switch to Ceftazidime based on culture results - Blood cultures pending - WCN consult placed for evaluation and dressings - PT/OT consultation - will trend inflammatory markers MRI is negative.\ for osteomyelitis Patient will need 4 weeks of antibiotics at discharge. Currently has an ultrasound guided line. Will likely need to replace ultrasound giuded line with another prior to discharge. Possible discharge over next 24-48 hours. will obtain PT/OT Patient has been seen walking barefoot when he was in the ER. Patient needs to not have his barefoot touch ground, at minimum with adequate dressing, but preferably special shoe. (2) Hypothyroidism: Plan: resume home meds (3) Diabetic foot infection: Plan: as above. (4) Anticoagulated on Coumadin: Plan: Rate controlled with Metoprolol - On Warfarin (5) Nonischemic cardiomyopathy: Plan: will consider diurese patient (6) DALE (acute kidney injury): Plan: DALE on CKD stage 3b will monitor creatinine. will check BNP and likely diurese. may consider zimmerman catheter if so. Due to clincal improvement on 12/07, held off diuresing. (7) DVT prophylaxis: Plan: warfarin Admission and Anticipated Discharge Date Admission Date: December 05, 2021 Subjective Patient reports his foot is looking better. No fever or chills. He has been mobile around the room without issues. Review of Systems Review of Systems: All systems reviewed & are unremarkable except as noted in Subjective Physical Exam Constitutional: WD/WN, vitals as above Respiratory: normal respiratory effort, lungs clear to auscultation Cardiovascular: Rate/Rhythm: regular rate and regular rhythm Extremities: normal capillary refill and + pedal edema Neurologic: moves all extremities and awake; not confused Motor/Sensory: no sensory deficit Results & Data Results & Data ([facility]) Vital Signs (Past 12 Hours) Vital Signs Temp Pulse Resp BP Pulse Ox O2 Del Method 12/08/21 11:09 Room Air 12/08/21 05:53 36.5 C 70 20 130/93 96 Room Air PG Care Time/CCT Total # of Minutes Spent Total Time Spent with Patient: Total time spent is greater than 50% in coordination of care (as documented) at patient's floor/unit and/or counseling patient: Coding Diagnoses Cellulitis of left foot L03.116 Hypothyroidism E03.9 Diabetic foot infection E11.628; L08.9 Anticoagulated on Coumadin Z79.01 Nonischemic cardiomyopathy I42.8 DALE (acute kidney injury) N17.9 DVT prophylaxis Z29.9
[2021-12-08] MEDS: WARFARIN SOD 5 MG TAB PO SCH (16:54)
[2021-12-08] MEDS: DAPTOmycin 650 MG in SYRINGE 0 ML IV SCH (16:55)
[2021-12-08] MEDS: METOPROLOL SUCC 50MG EXT REL TAB PO SCH (20:39)
[2021-12-09] MEDS: LEVOTHYROXINE SODIUM 150 MCG TABLET PO SCH (05:46)
[2021-12-09 08:08] LABS: INR 2.4 (0.9-1.1)
[2021-12-09] MEDS: allopurinoL 300 MG TAB PO SCH (08:24)
[2021-12-09] MEDS: CHOLECALCIFEROL 1,000 UNITS 25 MCG TAB PO SCH (08:24)
[2021-12-09] MEDS: ROSUVASTATIN CALCIUM 5 MG TAB PO SCH (08:24)
[2021-12-09] MEDS: WARFARIN SOD 7.5 MG TAB PO SCH (15:33)
[2021-12-09] MEDS: DAPTOmycin 650 MG in SYRINGE 0 ML IV SCH (15:33)
--- NOTE | 2021-12-09 15:33 | Discharge Summary ---
Date of Service December 09, 2021 Admission HPI Per Admitting Provider 75 YOM with past medical history of: Obesity, Hypothyroidism, Afib (on Warfarin), CKD, HTN, Gout, PFO, DERREK (CPAP 4cm H20 at home), Great Saphenous Vein ablation, DMII (not on any meds), chronic lymphedema and dermatitis (desoximetasone 0.25%). Patient has had multiple admissions for his left foot. Patient states over the past week, his foot has become more swollen. ANd over the past few days, more painful and this has been accompanied by drainage of clear fluid. Patient denies any fever, chils nausea, vomiting. Patient has had multiple admissions with multiple treatments of antibiotics, which have improved, but then worsen once antibiotic were removed Principal Diagnosis Cellulitis of the foot Discharge Exam Constitutional WD/WN, vitals as above Respiratory normal respiratory effort, lungs clear to auscultation Cardiovascular Rate/Rhythm: regular rate and regular rhythm Extremities: normal capillary refill and + pedal edema Neurologic moves all extremities and awake; not confused Motor/Sensory: no sensory deficit Discharge Data Allergies Allergy/AdvReac Type Severity Reaction Status Date / Time sulfamethoxazole Allergy Severe Hives, Verified 12/02/21 14:45 [From skin Sulfamethoxazole-Trimethoprim] sloughing trimethoprim Allergy Severe Hives, Verified 12/02/21 14:45 [From skin Sulfamethoxazole-Trimethoprim] sloughing hydrochlorothiazide Allergy Unknown "shut down Verified 12/02/21 14:45 kidneys" Consultations 12/05/21 16:34 ED Decision to Admit Stat 12/05/21 17:51 Consult Infectious Diseases Routine Ordered Studies 12/05/21 15:22 US venous doppler LE LT Urgent IMPRESSION: No DVT within the left lower extremity. 12/05/21 17:49 MR foot LT w/o con Routine IMPRESSION: 1. Motion degraded exam. 2. No acute fracture, dislocation or osseous erosion to suggest acute osteomyelitis. 3. Healed chronic fourth metatarsal fracture. 4. Nonspecific diffuse subcutaneous edema with chronic denervation changes of the musculature. 5. 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 Hospital Course (1) Cellulitis of left foot: Dieudonne Rachel is a 75 year old male admitted to [facility] 2021 due to left lower extremity cellulitis. He was treated with dapto mycin and ceftazidime during his inpatient stay. He was seen by infectious disease and recommended 3-4 weeks of continuing these antibiotics. Recommend taking probiotics while he is on antibiotics. Recommend weekly blood test with CBC, CMP, CRP and CK while on antibiotics. Recommend wearing footwear at all times. A new US guided IV line was placed for home health and the patient to administer antibiotics at home. He should follow up with infectious disease, wound care and dermatology as an outpatient for ongoing wound management. Arterial US was previously performed showing no significant stenosis at prior hospital stay so this was not repeated. (2) Hypothyroidism: (3) Diabetic foot infection: (4) Anticoagulated on Coumadin: (5) Nonischemic cardiomyopathy: (6) DALE (acute kidney injury): (7) DVT prophylaxis: warfarin Total Time Total Time Spent Total Time Spent (In Minutes): 45 Discharge Plan Discharge Items Patient Disposition: Home - Home Health Services Reason For Visit: CELLULITIS OF FOOT/ POSSIBLE OSTEOMYELITIS Discharge Diagnosis: Cellulitis of the foot Activity: Per Instructions section Non-emergency contact: Primary Care Provider Call non-emergency contact if: you have any medication questions and your symptoms worsen Follow-up/Referrals: Clovis Heredia [Primary Care Provider] - Dieudonne Hoang DO [Physician] - Diet: Heart Healthy Addtl Attending Provider Instructions: You were admitted to [facility] 2021 due to left lower extremity cellulitis you were treated with daptomycin and ceftazidime. He was seen by infectious disease and recommended 4 weeks of continuing these antibiotics. Recommend taking probiotics while you are taking these antibiotics. Recommend weekly blood test with CBC, CMP, CRP and CK while on these antibiotics. Recommend wearing a A new US guided IV line was placed for you to administer these antibiotics at home. Please follow-up with infectious disease, wound care and dermatology as an outpatient for ongoing wound management. Please continue on your usual dosing of warfarin and follow-up with the anticoagulation clinic. INR 2.4 on day of discharge. Pending Studies at Discharge: No Stand-Alone Forms: My [facility], Smoking Cessation Medications and DC Order Prescriptions: New daptomycin 500 mg recon soln 650 mg IV DAILY Qty: 10 0RF Rx Instructions: administer over 30 mins Last day 01/02/2022 ceftazidime 2 gram recon soln 2 g IV Q8H Qty: 10 0RF Rx Instructions: Last day 01/02/2022 Continued allopurinol 300 mg tablet 300 mg PO QAM rosuvastatin [Crestor] 5 mg tablet 5 mg PO QAM warfarin 5 mg tablet See Rx Instructions PO UD Qty: 120 1RF Rx Instructions: 7.5mg q M/W/, 5mg x 4 days per [facility] PO use as directed; metoprolol succinate 100 mg Tablet Extended Release 24 Hr 100 mg PO HS Qty: 0 levothyroxine 150 mcg tablet 150 mcg PO QAM cholecalciferol (vitamin D3) [Vitamin D3] 25 mcg (1,000 unit) Tablet 25 mcg PO QAM Discontinued cefepime IV Q8H daptomycin IV Q24H Discharge Orders: Discharge Order (Routine); Ordered 12/09/21 Ordered By: Brendan Ford Admission Data Admit Date/Time: 12/05/21 17:25 Attending Provider: Brendan Ford Admit Provider: Kamaljit Castillo Primary Care Provider: Clovis Heredia Other Providers: Julio C Nguyen ; Doretha Thornton ; Danilo Hernandez I. ; Matt Cornejo II ; Cassidy Harris ; Eyal Hunter ; Dieudonne Hoang ; Kamaljit Castillo ; [facility] Other Interventions: Discharge Summary Assessment (RN) Last Done: 12/09/21 15:38 Coding Level of Care Code D/C DAY MANAGEMENT >30 MINS Diagnoses Cellulitis of left foot L03.116 Hypothyroidism E03.9 Diabetic foot infection E11.628; L08.9 Anticoagulated on Coumadin Z79.01 Nonischemic cardiomyopathy I42.8 DALE (acute kidney injury) N17.9 DVT prophylaxis Z29.9
== END 2021-12-09 16:32 | disposition home health service (06) | DRG 603 ==
LOC: ED 12:13 → SUATTDRO 17:25 → EDINP 17:25 → 3W 20:55

== ENCOUNTER 2021-12-22 16:11 | Inpatient (IN) ==
--- NOTE | 2021-12-22 16:22 | ED Triage Note ---
Date of Service December 22, 2021 History of Present Illness This patient was briefly evaluated while in triage. An abbreviated physical exam was performed. This patient is a 76-year-old Male with past medical history of hypertension, atrial fibrillation, chronic kidney disease stage III, who presents to the ED for evaluation of left foot infection for several weeks. Has been on IV antibiotics for about 3 weeks, but has been getting worse. Has had 2 hospitalizations over past 2 months for this problem. No fevers. Physical Exam CONSTITUTIONAL: No acute distress. Well appearing. RESPIRATORY: Clear to auscultation bilaterally. Equal expansion bilaterally. CARDIOVASCULAR: Regular rate and rhythm with no murmurs, rubs or gallops. 2+ DP pulse. NEUROLOGIC: Alert and oriented X 4 with normal affect. Initial orders for labs and / or imaging were placed and patient was placed in the waiting area until a bed is available. Please see further documentation for the full ED course. MDM / Impression Impression Impression: Cellulitis of left lower extremity, Anticoagulated on Coumadin, Chronic kidney disease, stage III (moderate)
[2021-12-22 17:25] LABS: Basophils # (auto) 0.07 K/uL (0-0.2); Basophils % (auto) 0.7 %; Eosinophils # (auto) 0.97 K/uL (0-0.50); Eosinophils % (auto) 10.4 %; Hematocrit (blood only) 47.9 % (40.1-51.0); Hemoglobin 15.7 g/dl (14.0-18.0); Immature Granulocytes # (auto) 0.07 K/uL (0.00-0.02); Immature Granulocytes % (auto) 0.7 %; Lymphocytes # (auto) 1.12 K/uL (1.2-3.4); Mean Corpuscular Hemoglobin 31.2 pg (25.0-34.0); Mean Corpuscular Hgb Conc 32.8 g/dL (32.0-36.0); Mean Corpuscular Volume 95.2 fL (80.0-100.0); Mean Platelet Volume 10.9 fL (9.4-12.4); Monocytes # (auto) 0.53 K/uL (0.24-0.82); Monocytes % (auto) 5.7 %; Neutrophils # (auto) 6.61 K/uL (1.4-6.5); Neutrophils % (auto) 70.5 %; Platelet Count 179 K/uL (130-400); RDW Coefficient of Variation 15.2 % (11.5-14.5); RDW Standard Deviation 52.8 fL (36.4-46.3); Red Blood Count 5.03 M/uL (4.63-6.08); White Blood Count 9.37 K/ul (4.8-10.8)
[2021-12-22 17:55] LABS: Albumin Globulin Ratio 0.8 (0.9-2); Albumin Level 3.6 gm/dl (3.4-5.0); BUN Creatinine Ratio 18.1 (10-20); Bilirubin,Total 0.4 mg/dl (0.2-1.0); C Reactive Protein 1.71 mg/dl (0-0.5); Creatinine Clr Calc Pharmacy 50.3 ml/min; Est GFR (African American) 43.8 ml/min; Est GFR (Non-African American) 37.8 ml/min; Globulin 4.5 gm/dl (2.5-4.0); Potassium 4.4 mmol/L (3.5-5.1); Total Protein 8.1 gm/dl (6.0-8.3)
--- NOTE | 2021-12-22 18:17 | XRay Report ---
XR tibia fibula LT 2V CLINICAL HISTORY: Foot wound/cellulitis COMPARISON: Left ankle radiographs September 23, 2019. FINDINGS: No acute fracture within the left tibia or fibula is noted. There is no evidence for acute osteomyelitis. Plantar calcaneal spurring is noted. There is extensive left leg soft tissue swelling . Mild left knee osteoarthritis is present. IMPRESSION: 1. No acute fracture or evidence for acute osteomyelitis within the left tibia or fibula. 2. Extensive left lower leg soft tissue swelling. ACT 112: Negative or not required by law. Electronically signed by: Calvin Preciado M.D. 12/22/2021 6:16 PM
--- NOTE | 2021-12-22 18:19 | XRay Report ---
LEFT FOOT 3 VIEWS CLINICAL HISTORY: Cellulitis. Wound. FINDINGS: 3 views of the left foot are compared to study dated 12/05/2021. The skeletal structures are osteopenic. No acute fracture is seen. There is chronic posttraumatic deformity of the fourth metata rsal. There is moderate osteoarthritic change throughout the midfoot. Moderate osteoarthritic change is also seen at the first metatarsophalangeal joint. There is no bony erosion or periostitis. Degener ative spurring is seen along the dorsal aspect of the tarsal bones. There is a large plantar calcanea l enthesophyte. Diffuse soft tissue edema is present on the dorsum of the foot. No soft tissue gas or radiodense foreign body is identified. IMPRESSION: 1. Soft tissue edema suggests cellulitis. Clinical correlation will be required. 2. No acute bony abnormality is identified. 3. Osteopenia with degenerative change and a large heel spur as above. Electronically signed by: Aly Devine M.D. 12/22/2021 6:17 PM
--- NOTE | 2021-12-22 18:42 | Emergency Department Note ---
Impression & Plan Cellulitis of left lower extremity, Anticoagulated on Coumadin, Chronic kidney disease, stage III (moderate) ED Provider Note NAME: ANNAMARIE LARSEN AGE: 76 SEX: M : 1945 ARRIVES VIA: Walk-In INFORMANT: Patient ED PROVIDER(S): Byron Daily DO CHIEF COMPLAINT: LLE infection HPI: Patient is a 76-year-old male who presents the ER for worsening swelling an d progression of redness of his left lower extremity. He is following with his PCP and ID. He has wound care that comes to his house as well. He notes leg is becoming redder, increasing in size, more painful and the redness is spreading. He saw his PCP who referred him in for worsening infection while on ceftaz and Dapto. He gets this through PICC line since being discharged and seen on . He denies any headache or change in vision. No chest pain or shortness of breath. No nausea vomiting or diarrhea. No dysuria urgency or frequency. No other exacerbating or remitting. PCP sent him in for failure of antibiotics and possible arterial occlusion although recently had a negative Doppler of the arteries just over a month ago. ROS: See above HPI for pertinent positives & negatives. A total of 10 systems reviewed and were otherwise negative. PAST MEDICAL HISTORY:See Below PAST SURGICAL HISTORY:See Below FAMILY HISTORY:See Below SOCIAL HISTORY:See Below HOME MEDICATIONS:See Below ALLERGIES:See Below VITALS:See Below PHYSICAL EXAMINATION: GENERAL: Sitting up in bed, alert, morbidly obese, disheveled, nontoxic EYE EXAM: normal conjunctiva. OROPHARYNX: mucous membranes are moist LUNGS: Clear to auscultation. Normal chest wall mechanics HEART: no murmurs, S1 normal and S2 normal ABDOMEN: abdomen soft, non-tender, normo-active bowel sounds, no masses, no rebound or guarding. UPPER EXTREMITIES: upper extremities are grossly normal. LOWER EXTREMITIES: Significant pitting edema and left lower extremity with erythema and excoriation of the skin circumferentially from the foot up to the mid wood NEURO EXAM: Normal sensorium, cranial nerves II-XII grossly intact, normal speech, no gross weakness of arms, no gross weakness of legs. MEDICAL DECISION MAKING: Patient is a 76-year-old male who presents the ER for worsening redness swelling and pain in the left lower extremity. He is currently on daptomycin and ceftaz. IV was established blood work is obtained. Labs show no significant leukocytosis or anemia. ESR was significantly elevated at 80. INR 1.7. BMP with creatinine 1.7 consistent with previous. LFTs bilirubin was unremarkable. Pro-Anjel was normal. CRP elevated at 1.7. COVID was negative. Patient was updated bedside. Her recent arterial scan was reviewed and was fairly unremarkable. Patient was given meropenem and discussed with Brendan Ford for further evaluation. Triage Nursing notes reviewed. Limited review of prior medical records performed Vital Signs: reviewed and remarkable for no significant abnormalities Differential diagnosis: Cellulitis, abscess, MRSA infection, DVT, necrotizing fasciitis, dermatitis, drug eruption, allergic reaction, as well as other pathologies. ER treatment provided: See below Diagnostics interpreted by me: ECG: none Cardiac Monitoring: An order was placed for continuous cardiac monitoring. The monitor shows a rate of 92 with sinus rhythm. Laboratory studies: As stated above and show below. Imaging studies: See below Consultation(s): none Procedures: none Critical Care: None Past Med/Surg History Medical History Atrial fibrillation, chronic BPH (benign prostatic hyperplasia) Cellulitis of left anterior lower leg Chronic atrial fibrillation Chronic kidney disease, stage III (moderate) Chronic ulcer of left foot Gout Hearing deficit History of basal cell carcinoma Hypertension Hypothyroidism Leukocytosis Obesity On anticoagulant therapy Penile hypospadias Prediabetes Renal cyst Sepsis Sleep apnea cpap Venous stasis ulcer Surgical History History of esophagogastroduodenoscopy (EGD) Family History Other Hearing loss No family history of adverse response to anesthesia No family history of bleeding disorder Denies family history of Heart disease Allergies Cancer Hypertension Stroke Asthma Social History Smoking Status: Former smoker Tobacco Type: Cigarettes packs per day: 1; Second Hand Exposure: No; Hx Alcohol Use: No Hx Substance Use: No Preferred Language: Czech Communication Ability: Effective Visual Impairment: Limited Hearing Ability: Hard of Hearing Wardrobe Attendant Required: No Beliefs That Will Affect Care: None marital status: Current Living Situation: Spouse current occupational status: retired How many Children do You have: 4 How many Children do You have Comment: 3 local, pt independent with care. Feels Safe at Home: Yes Assistive Devices: Cane and Walker Allergies Allergies Allergy/AdvReac Type Severity Reaction Status Date / Time sulfamethoxazole Allergy Severe Hives, Verified 12/16/21 14:49 [From skin Sulfamethoxazole-Trimethoprim] sloughing trimethoprim Allergy Severe Hives, Verified 12/16/21 14:49 [From skin Sulfamethoxazole-Trimethoprim] sloughing hydrochlorothiazide Allergy Unknown "shut down Verified 12/16/21 14:49 kidneys" Home Meds Home Medications Medication Instructions Recorded Confirmed metoprolol succinate 100 mg 100 mg PO HS ##0 08/07/16 12/22/21 tablet,extended release 24 hr allopurinol 300 mg tablet 300 mg PO QAM 01/02/19 12/22/21 levothyroxine 150 mcg tablet 150 mcg PO QAM 10/31/21 12/22/21 rosuvastatin 5 mg tablet (Crestor) 5 mg PO QAM 11/21/21 12/22/21 cholecalciferol (vitamin D3) 25 25 mcg PO QAM 11/22/21 12/22/21 mcg (1,000 unit) tablet (Vitamin D3) warfarin 5 mg tablet See Rx Instructions PO UD 12/22/21 Previous Rx's Medication Instructions Recorded ceftazidime 2 gram intravenous 2 g IV Q8H #10 ea 12/09/21 solution daptomycin 500 mg intravenous 650 mg IV DAILY #10 ea 12/09/21 solution Results & Data (ED) Vital Signs Vital Signs - 24 hr 12/22/21 16:17 12/22/21 17:59 Temperature 36.5 C Temperature Source Temporal Artery Scan Pulse Rate 85 Pulse Rate [Apical] 72 Respiratory Rate 20 20 Respiratory Effort / Characteristics Non-Labored Non-Labored Respiratory Depth Normal Normal Blood Pressure 152/98 H Blood Pressure [Left Arm] 129/84 Blood Pressure Mean 116 Blood Pressure Mean [Left Arm] 99 Pulse Oximetry 97 98 Oxygen Delivery Method Room Air Room Air Sepsis Recent Fever Within 48 Hours No Sepsis New/Unexplained Change in Mental Status No Sepsis Action Taken by Nursing No Action Required Laboratory Data Result diagrams: 12/22/21 17:00 12/22/21 17:00 Lab Results 12/22/21 12/22/21 12/22/21 Range/Units 17:00 17:00 17:00 WBC 9.37 (4.8-10.8) K/ul RBC 5.03 (4.63-6.08) M/uL Hgb 15.7 (14.0-18.0) g/dl Hct 47.9 (40.1-51.0) % MCV 95.2 (80.0-100.0) fL MCH 31.2 (25.0-34.0) pg MCHC 32.8 (32.0-36.0) g/dL RDW Std Deviation 52.8 H (36.4-46.3) fL RDW Coeff of [place] 15.2 H (11.5-14.5) % Plt Count 179 (130-400) K/uL MPV 10.9 (9.4-12.4) fL Immature Gran % (Auto) 0.7 % Neut % (Auto) 70.5 % Lymph % (Auto) 12.0 % [place] % (Auto) 5.7 % Eos % (Auto) 10.4 % Baso % (Auto) 0.7 % Neut # (Auto) 6.61 H (1.4-6.5) K/uL Lymph # (Auto) 1.12 L (1.2-3.4) K/uL [place] # (Auto) 0.53 (0.24-0.82) K/uL Eos # (Auto) 0.97 H (0-0.50) K/uL Baso # (Auto) 0.07 (0-0.2) K/uL Immature Gran # (Auto) 0.07 H (0.00-0.02) K/uL ESR (0-20) mm/hr PT (9.0-12.0) Seconds INR (0.9-1.1) Sodium 136 (136-145) mmol/L Potassium 4.4 (3.5-5.1) mmol/L Chloride 104 (98-107) mmol/L Carbon Dioxide 23 (21-32) mmol/L Anion Gap 9 (3-11) BUN 31 H (6-23) mg/dl Creatinine 1.71 H (0.6-1.4) mg/dl Est Cr Clr Drug Dosing 50.3 ml/min Est GFR ( Amer) 43.8 ml/min Est GFR (Non-Af Amer) 37.8 ml/min BUN/Creatinine Ratio 18.1 (10-20) Glucose 85 (70-99(Fasting)) mg/dl Lactate 1.3 (0.4-2.0) mmol/L Calcium 9.0 (8.5-10.1) mg/dl Total Bilirubin 0.4 (0.2-1.0) mg/dl AST 27 (13-39) U/L ALT 25 (7-52) U/L Alkaline Phosphatase 63 (34-104) U/L C-Reactive Protein 1.71 H (0-0.5) mg/dl Total Protein 8.1 (6.0-8.3) gm/dl Albumin 3.6 (3.4-5.0) gm/dl Globulin 4.5 H (2.5-4.0) gm/dl Albumin/Globulin Ratio 0.8 L (0.9-2) Procalcitonin (0-0.5) ng/ml SARS-CoV-2, RNA, NAAT (NEGATIVE) 12/22/21 12/22/21 12/22/21 Range/Units 17:00 17:00 17:00 WBC (4.8-10.8) K/ul RBC (4.63-6.08) M/uL Hgb (14.0-18.0) g/dl Hct (40.1-51.0) % MCV (80.0-100.0) fL MCH (25.0-34.0) pg MCHC (32.0-36.0) g/dL RDW Std Deviation (36.4-46.3) fL RDW Coeff of [place] (11.5-14.5) % Plt Count (130-400) K/uL MPV (9.4-12.4) fL Immature Gran % (Auto) % Neut % (Auto) % Lymph % (Auto) % [place] % (Auto) % Eos % (Auto) % Baso % (Auto) % Neut # (Auto) (1.4-6.5) K/uL Lymph # (Auto) (1.2-3.4) K/uL [place] # (Auto) (0.24-0.82) K/uL Eos # (Auto) (0-0.50) K/uL Baso # (Auto) (0-0.2) K/uL Immature Gran # (Auto) (0.00-0.02) K/uL ESR 79 H (0-20) mm/hr PT 17.7 H (9.0-12.0) Seconds INR 1.7 H (0.9-1.1) Sodium (136-145) mmol/L Potassium (3.5-5.1) mmol/L Chloride (98-107) mmol/L Carbon Dioxide (21-32) mmol/L Anion Gap (3-11) BUN (6-23) mg/dl Creatinine (0.6-1.4) mg/dl Est Cr Clr Drug Dosing ml/min Est GFR ( Amer) ml/min Est GFR (Non-Af Amer) ml/min BUN/Creatinine Ratio (10-20) Glucose (70-99(Fasting)) mg/dl Lactate (0.4-2.0) mmol/L Calcium (8.5-10.1) mg/dl Total Bilirubin (0.2-1.0) mg/dl AST (13-39) U/L ALT (7-52) U/L Alkaline Phosphatase (34-104) U/L C-Reactive Protein (0-0.5) mg/dl Total Protein (6.0-8.3) gm/dl Albumin (3.4-5.0) gm/dl Globulin (2.5-4.0) gm/dl Albumin/Globulin Ratio (0.9-2) Procalcitonin 0.06 (0-0.5) ng/ml SARS-CoV-2, RNA, NAAT (NEGATIVE) 12/22/21 Range/Units 18:31 WBC (4.8-10.8) K/ul RBC (4.63-6.08) M/uL Hgb (14.0-18.0) g/dl Hct (40.1-51.0) % MCV (80.0-100.0) fL MCH (25.0-34.0) pg MCHC (32.0-36.0) g/dL RDW Std Deviation (36.4-46.3) fL RDW Coeff of [place] (11.5-14.5) % Plt Count (130-400) K/uL MPV (9.4-12.4) fL Immature Gran % (Auto) % Neut % (Auto) % Lymph % (Auto) % [place] % (Auto) % Eos % (Auto) % Baso % (Auto) % Neut # (Auto) (1.4-6.5) K/uL Lymph # (Auto) (1.2-3.4) K/uL [place] # (Auto) (0.24-0.82) K/uL Eos # (Auto) (0-0.50) K/uL Baso # (Auto) (0-0.2) K/uL Immature Gran # (Auto) (0.00-0.02) K/uL ESR (0-20) mm/hr PT (9.0-12.0) Seconds INR (0.9-1.1) Sodium (136-145) mmol/L Potassium (3.5-5.1) mmol/L Chloride (98-107) mmol/L Carbon Dioxide (21-32) mmol/L Anion Gap (3-11) BUN (6-23) mg/dl Creatinine (0.6-1.4) mg/dl Est Cr Clr Drug Dosing ml/min Est GFR ( Amer) ml/min Est GFR (Non-Af Amer) ml/min BUN/Creatinine Ratio (10-20) Glucose (70-99(Fasting)) mg/dl Lactate (0.4-2.0) mmol/L Calcium (8.5-10.1) mg/dl Total Bilirubin (0.2-1.0) mg/dl AST (13-39) U/L ALT (7-52) U/L Alkaline Phosphatase (34-104) U/L C-Reactive Protein (0-0.5) mg/dl Total Protein (6.0-8.3) gm/dl Albumin (3.4-5.0) gm/dl Globulin (2.5-4.0) gm/dl Albumin/Globulin Ratio (0.9-2) Procalcitonin (0-0.5) ng/ml SARS-CoV-2, RNA, NAAT NEGATIVE (NEGATIVE) Administered Medications Meropenem 500 mg/ Syringe 10 mls @ 2 mls/min IV Q6H [facility]; Protocol Stop: 12/24/21 18:29 Last Admin: 12/22/21 19:27 Dose: 2 mls/min Documented By: [facility] Imaging Data Radiologist's Impression: Foot X-Ray 12/22/21 16:22 LEFT FOOT 3 VIEWS CLINICAL HISTORY: Cellulitis. Wound. FINDINGS: 3 views of the left foot are compared to study dated 12/05/2021. The skeletal structures are osteopenic. No acute fracture is seen. There is chronic posttraumatic deformity of the fourth metatarsal. There is moderate osteoarthritic change throughout the midfoot. Moderate osteoarthritic change is also seen at the first metatarsophalangeal joint. There is no bony erosion or periostitis. Degenerative spurring is seen along the dorsal aspect of the tarsal bones. There is a large plantar calcaneal enthesophyte. Diffuse soft tissue edema is present on the dorsum of the foot. No soft tissue gas or radiodense foreign body is identified. IMPRESSION: 1. Soft tissue edema suggests cellulitis. Clinical correlation will be required. 2. No acute bony abnormality is identified. 3. Osteopenia with degenerative change and a large heel spur as above. Electronically signed by: Aly Devine M.D. 12/22/2021 6:17 PM Tibia/Fibula X-Ray 12/22/21 16:22 XR tibia fibula LT 2V CLINICAL HISTORY: Foot wound/cellulitis COMPARISON: Left ankle radiographs September 23, 2019. FINDINGS: No acute fracture within the left tibia or fibula is noted. There is no evidence for acute osteomyelitis. Plantar calcaneal spurring is noted. There is extensive left leg soft tissue swelling. Mild left knee osteoarthritis is present. IMPRESSION: 1. No acute fracture or evidence for acute osteomyelitis within the left tibia or fibula. 2. Extensive left lower leg soft tissue swelling. ACT 112: Negative or not required by law. Electronically signed by: Calvin Preciado M.D. 12/22/2021 6:16 PM Discharge Plan Visit Data Chief Complaint: Infection, Wound Stated Complaint: REFERRED BY DOCTOR, INFECTION LEFT FOOT ED Provider: Byron Daily Discharge Problem: Cellulitis of left lower extremity, Anticoagulated on Coumadin, Chronic kidney disease, stage III (moderate) Patient Disposition: Admitted As Inpatient Discharge Instructions Interventions: ED Discharge Assessment Last Done: 12/22/21 20:47
[2021-12-22 18:49] LABS: INR 1.7 (0.9-1.1); Prothrombin Time 17.7 Seconds (9.0-12.0)
[2021-12-22] MEDS ORDERED: ACETAMINOPHEN 325 MG TAB PO PRN (19:20)
--- NOTE | 2021-12-22 19:21 | History & Physical Report ---
Date of Service December 22, 2021 Assessment & Plan (1) Recurrent cellulitis of lower leg: Plan: This is 76-year-old male with a history of recurrent cellulitis of the left foot, CKD stage III, atrial fibrillation on warfarin, hypertension, gout, hypothyroidism, DERREK who presented to [facility] for evaluation of worsening pain and erythema in his L foot despite ongoing home therapy with IV daptomycin and ceftazidime. His presentation and exam are concerning for a refractory cellulitis. Refractory / Recurrent Cellulitis - Exam revealing extensive erythema and swelling of the LLE; while there is likely a component of venous stasis dermatitis intermixed, the presentation is overall concerning for refractory cellulitis - Patient recently discharged on 12/09 for the same - ID note reviewed, has been on daptomycin and ceftazidime. He has been taking these as scheduled and been doing dressings/exercises as advised. - Work-up as follows: - ESR 79, CRP 1.7 on arrival; no leukocytosis, afebrile. Procal pending. - Arterial duplex 10/2021 and Venous doppler 11/2021 not revealing significant stenosis or venous abnormalities - no DVT during last admission, on Warfarin - XR of foot and tibia/fibula with soft tissue edema but no osseous abnormality - Last MRI from 10/2021 reviewed - no evidence of osteo at that time - Blood cultures obtained, pending - Previous superficial WCX: Pseudomonas, MRSA, Alc faecal reviewed - Unclear why this continues to recur. Possible that venous and lymphatic pooling from inactivity is causing stasis-related infection? MDR organism not detected on superficial culture? Anatomical circulatory issue? No evidence of osteo on recent MRI in October; no obvious osseous abnormalities on XRs obtained in ED - Consult ID: appreciate insight, recommendations on further ABX and need for formal tissue biopsy, repeat advanced imaging. - Check A1c - Continue meropenem, dapto; add double Pseudomonas coverage with levofloxacin - PT, OT: appreciate lymphatic exercise recommendations - Elevate leg in bed (2) Hypothyroidism: Plan: Hypothyroidism - Continue levothyroxine (3) Chronic venous insufficiency: Plan: Chronic Venous Insufficiency - History noted - PT, OT, elevate legs, stockings when tolerated - Likely contributing to the above - may also be component of venous stasis dermatitis at play - Continue CPAP at night (4) Anticoagulated on Coumadin: Plan: AFib on Coumadin - INR 1.7 on arrival - goal 2-3 with AFib - Last TTE reviewed - normal LVEF, no RWMAs, mild cLVH, EF 60-65%, mild-moderate (5) Sleep apnea: Plan: DERREK on CPAP - CPAP at night (6) Gout: Plan: Gout - Continue allopurinol - lower suspicion this is related to the acute process (7) Chronic kidney disease, stage III (moderate): Plan: CKD III - Baseline appears Cr 1.5-1.8 - 1.71 on arrival (from 1.66 approx. 3 days prior) - Monitor while here, avoid nephrotoxic medications / renally dose PRN Plan Code: Full Diet: CC PPX: Warfarin therapy as above Dispo: MS Consults: ID, PT, OT History of Present Illness Primary Care Provider: Clovis Heredia This is 76-year-old male with a history of recurrent cellulitis of the left foot, CKD stage III, atrial fibrillation on warfarin, hypertension, gout, hypothyroidism, DERREK who presented to [facility] for evaluation of worsening pain and erythema in his L foot. Patient was recently discharged from the hospital, see below. He says that over the last 6 days, the rash has gotten progressively worse. Initially started in his foot and was red and weeping. Then progressed up to his ankle, and now has begun progressing up his leg. He says that weightbearing is painful. He denies any fever, chills, sweats. Denies any changes in appetite. Voiding and stooling appropriately. He says he has not walked around much since this has been going on. Usually sitting throughout the day. Of note, patient was recently discharged from December 09, 2021 for left lower extremity cellulitis that was treated with daptomycin and ceftazidime during his inpatient stay, subsequently discharged on the same regimen at the recommendation of ID. He was seen by dermatology 6 days prior to this admission with reported improvement of his wound; Lymphedema was noted and recommendations were given. His ID consult was reviewedpatient has history of improving with MRSA, Pseudomonas, and Alcalignes coverage. Patient had arterial duplex in October 2021 which demonstrated mild atherosclerotic plaque within the left lower extremity but no evidence of hemodynamically significant stenosis. In November 2021 he had a venous Doppler study, which did not demonstrate DVT; it showed normal compressibility, flow, and augmentation of the deep venous system. Home medications reviewed and include allopurinol, levothyroxine, metoprolol, rosuvastatin, warfarin. In the ED, patient was found to be hemodynamically stable with normal vital signs, afebrile. Admission labs were notable for a normal white count with relative neutrophilia, lymphopenia, eosinophilia. ESR 79. INR 1.7. BUN 31/creatinine 1.7. CRP 1.7. COVID-negative. 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 He was started on meropenem. Allergies Allergy/AdvReac Type Severity Reaction Status Date / Time sulfamethoxazole Allergy Severe Hives, Verified 12/16/21 14:49 [From skin Sulfamethoxazole-Trimethoprim] sloughing trimethoprim Allergy Severe Hives, Verified 12/16/21 14:49 [From skin Sulfamethoxazole-Trimethoprim] sloughing hydrochlorothiazide Allergy Unknown "shut down Verified 12/16/21 14:49 kidneys" Home Medications Medication Instructions Recorded Confirmed Type metoprolol succinate 100 mg 100 mg PO HS ##0 08/07/16 12/22/21 History tablet,extended release 24 hr allopurinol 300 mg tablet 300 mg PO QAM 01/02/19 12/22/21 History levothyroxine 150 mcg tablet 150 mcg PO QAM 10/31/21 12/22/21 History rosuvastatin 5 mg tablet (Crestor) 5 mg PO QAM 11/21/21 12/22/21 History cholecalciferol (vitamin D3) 25 25 mcg PO QAM 11/22/21 12/22/21 History mcg (1,000 unit) tablet (Vitamin D3) ceftazidime 2 gram intravenous 2 g IV Q8H #10 ea 12/09/21 12/22/21 Rx solution daptomycin 500 mg intravenous 650 mg IV DAILY #10 ea 12/09/21 12/22/21 Rx solution warfarin 5 mg tablet See Rx Instructions PO UD 12/22/21 History Past Med/Surg History Medical History Atrial fibrillation, chronic BPH (benign prostatic hyperplasia) Cellulitis of left anterior lower leg Chronic atrial fibrillation Chronic kidney disease, stage III (moderate) Chronic ulcer of left foot Gout Hearing deficit History of basal cell carcinoma Hypertension Hypothyroidism Leukocytosis Obesity On anticoagulant therapy Penile hypospadias Prediabetes Renal cyst Sepsis Sleep apnea cpap Venous stasis ulcer Surgical History History of esophagogastroduodenoscopy (EGD) Family History Other Hearing loss No family history of adverse response to anesthesia No family history of bleeding disorder Denies family history of Heart disease Allergies Cancer Hypertension Stroke Asthma Social History Smoking Status: Former smoker Tobacco Type: Cigarettes packs per day: 1; Second Hand Exposure: No; Hx Alcohol Use: No Hx Substance Use: No Preferred Language: Indonesian Communication Ability: Effective Visual Impairment: Limited Hearing Ability: Hard of Hearing Technician Required: No Beliefs That Will Affect Care: None marital status: Current Living Situation: Spouse current occupational status: retired How many Children do You have: 1 How many Children do You have Comment: 3 local, pt independent with care. Feels Safe at Home: Yes Assistive Devices: CPAP Review of Systems Review of Systems: as per HPI Physical Exam Physical Exam: General: 76-year old male who is alert, oriented, and appears in no acute distress. HEENT: NCAT. - Eyes - Sclera are white, anicteric, and without injection. - Mouth - MMM - Neck - supple, no appreciable JVD Cardiac: Difficult to appreciate given habitus. Of what could be heard - normal rate with irregular rhythm; S1 and S2 present with no murmurs, rubs, or gallops. Pulmonary: Good respiratory effort with symmetric expansion of the chest. No use of accessory muscles. Lungs were clear to auscultation bilaterally with no crackles or wheezes. Abdominal: Normoactive bowel sounds. Abdomen was soft, nondistended, and non- tender to palpation. Extremities: Upper and lower extremities are warm and well perfused. Patient has extensive erythema in the LLE extending from the distal LE (circumferential) and extending to the whole foot. On the medial aspect of the ankle, there is hardened yellow scaling. Capillary refill 1-2 seconds. Unable to palpate pulses due to 3+ edema. Active extension and flexion of the toes and ankle does not cause pain. Psych: Well-developed, well-nourished, appropriately dressed for occasion. Behavior is cooperative and appropriate. Affect is WNL. Insight is appropriate. Results & Data Results & Data ([facility]) Vital Signs (Past 12 Hours) Vital Signs Temp Pulse Pulse Resp BP BP Pulse Ox 12/22/21 17:59 72 20 129/84 98 12/22/21 16:17 36.5 C 85 20 152/98 H 97 O2 Del Method 12/22/21 17:59 Room Air 12/22/21 16:17 Room Air Supervising Physician Co-Signing Physician Notes Attending addendum: I have physically seen this patient, have supervised the medical residents activities, and agree with the H&P unless as otherwise noted. Assessment and Plan: Recurrent lower extremity cellulitis- History of Pseudomonas, MRSA Placed on levofloxacin IV, meropenem IV and daptomycin IV. Recommend double coverage for Pseudomonas since this has been a resistant organism and recurrent infection Hypothyroidism- Continue levothyroxine Atrial fibrillation- Continue warfarin, mildly subtherapeutic at 1.7, may need to be adjusted tomorrow Sleep apnea- Continue CPAP at bedtime Gout- Continue allopurinol Remaining orders and notations as noted Resident Activity Tracking Resident Involvement: Resident Care Provided Care Provided: Adult Hospital Medicine (1) Chronic kidney disease, stage III (moderate) Chronic kidney disease stage 3 subtype: unspecified whether 3a or 3b Qualified Code(s): N18.30 - Chronic kidney disease, stage 3 unspecified
[2021-12-22] MEDS: MEROPENEM 500 MG in SYRINGE 0 ML IV SCH (19:27)
[2021-12-22] MEDS ORDERED: levoFLOXacin/D5W 750 MG/150 ML BAG IV SCH (22:00)
[2021-12-22] MEDS: WARFARIN SOD 5 MG TAB PO SCH (22:14)
[2021-12-22] MEDS: METOPROLOL SUCC 50MG EXT REL TAB PO SCH (22:15)
[2021-12-23] MEDS: MEROPENEM 500 MG in SYRINGE 0 ML IV SCH ×4 (01:46→18:02)
[2021-12-23] MEDS: LEVOTHYROXINE SODIUM 150 MCG TABLET PO SCH (06:02)
[2021-12-23] MEDS: ROSUVASTATIN CALCIUM 5 MG TAB PO SCH (08:24)
[2021-12-23] MEDS: allopurinoL 300 MG TAB PO SCH (08:24)
[2021-12-23] MEDS: DAPTOmycin 650 MG in SYRINGE 0 ML IV SCH (08:25)
[2021-12-23 09:37] LABS: Basophils # (auto) 0.06 K/uL (0-0.2); Basophils % (auto) 0.8 %; Eosinophils # (auto) 0.79 K/uL (0-0.50); Hematocrit (blood only) 46.3 % (40.1-51.0); Hemoglobin 15.4 g/dl (14.0-18.0); Immature Granulocytes # (auto) 0.07 K/uL (0.00-0.02); Lymphocytes # (auto) 1.02 K/uL (1.2-3.4); Lymphocytes % (auto) 14.2 %; Mean Corpuscular Hgb Conc 33.3 g/dL (32.0-36.0); Mean Corpuscular Volume 93.2 fL (80.0-100.0); Mean Platelet Volume 10.9 fL (9.4-12.4); Monocytes # (auto) 0.43 K/uL (0.24-0.82); Neutrophils # (auto) 4.81 K/uL (1.4-6.5); Platelet Count 167 K/uL (130-400); RDW Coefficient of Variation 15.1 % (11.5-14.5); RDW Standard Deviation 51.7 fL (36.4-46.3); Red Blood Count 4.97 M/uL (4.63-6.08); White Blood Count 7.18 K/ul (4.8-10.8)
[2021-12-23 09:45] LABS: Prothrombin Time 20.8 Seconds (9.0-12.0)
[2021-12-23 09:59] LABS: BUN Creatinine Ratio 16.9 (10-20); Calcium 8.7 mg/dl (8.5-10.1); Creatinine Clr Calc Pharmacy 58.1 ml/min; Est GFR (African American) 52.1 ml/min; Potassium 4.3 mmol/L (3.5-5.1)
[2021-12-23 10:45] LABS: Estimated Average Glucose 120 mg/dl; Hemoglobin A1C 5.8 % (4.5-5.6)
[2021-12-23] MEDS: WARFARIN SOD 7.5 MG TAB PO SCH (16:48)
--- NOTE | 2021-12-23 17:10 | Hospitalist Progress Note ---
Date of Service December 23, 2021 Assessment & Plan (1) Recurrent cellulitis of lower leg: Plan: This is 76-year-old male with a history of recurrent cellulitis of the left foot, CKD stage III, atrial fibrillation on warfarin, hypertension, gout, hypothyroidism, DERREK who presented to [facility] for evaluation of worsening pain and erythema in his L foot despite ongoing home therapy with IV daptomycin and ceftazidime. - Exam revealing extensive erythema and swelling of the LLE with weeping -There's underlying lymphedema and chronic venous stasis - Patient recently discharged on 12/09 for the same - ID note reviewed, has been on daptomycin and ceftazidime. He has been taking these as scheduled and been doing dressings/exercises as advised. - Work-up as follows: - ESR 79, CRP 1.7 on arrival; no leukocytosis, afebrile. Procal pending. - Arterial duplex 10/2021 and Venous doppler 11/2021 not revealing significant stenosis or venous abnormalities - no DVT during last admission, on Warfarin - XR of foot and tibia/fibula with soft tissue edema but no osseous abnormality - Last MRI from 10/2021 reviewed - no evidence of osteo at that time - Blood cultures obtained, pending - PrevioussuperficialWCX: Pseudomonas, MRSA, Alc faecal reviewed - Consult ID - Check A1c - Continue meropenem, dapto - PT, OT: appreciate lymphatic exercise recommendations - Elevate leg in bed (2) Diabetes: Plan: Blood glucose under good control continue home meds insulin sliding scale (3) Dermatitis: Plan: Went to see a Vice President Of Contracts Adviced to keep legs clean'wash everyday (4) Chronic venous insufficiency: Plan: contributing to the cellulitis (5) Chronic atrial fibrillation: Plan: Rate controlled On Coumadin INR 2 today Plan Contionue antibiotics Admission and Anticipated Discharge Date Admission Date: December 22, 2021 Subjective patient seen and examined, still with weeping wound on the leg Review of Systems Review of Systems: All systems reviewed are negative, apart from the ones contained in the history. Physical Exam Physical Exam: The patient is awake, alert and oriented 3, well developed and well nourished, normocephalic and atraumatic, lying in bed and in no acute distress. HEENT--PERRL, EOMI, mucous membranes and oropharynx mildly dry Neck--supple. No JVD. No bruits. Thyroid normal, trachea midline, no adenopathy. Heart--normal S1 and S2. No murmurs, rubs or gallops. Lungs--clear bilaterally, no respiratory distress, no accessory muscle use. Abdomen--normal bowel sounds and soft. Mild epigastric and left sided abdominal pain Extremities--no cyanosis or clubbing. No edema. Dermatologic--bilateral leg edema, chronic venous stasis changes, weeping Neurologic--cranial nerves II through XII grossly intact. Rheumatologic--normal range of motion. Psychiatric--normal affect. Results & Data Results & Data ([facility]) Vital Signs (Past 12 Hours) Vital Signs Temp Pulse Resp BP Pulse Ox O2 Del Method 12/23/21 14:23 97.9 F 75 20 101/64 97 Room Air 12/23/21 08:17 97.5 F L 90 18 118/76 99 Room Air PG Care Time/CCT Total # of Minutes Spent Total Time Spent with Patient: Total time spent is greater than 50% in coordination of care (as documented) at patient's floor/unit and/or counseling patient: Coding Level of Care Code 83155 Subseq Hosp Care Lvl 2 Diagnoses Recurrent cellulitis of lower leg L03.119 Diabetes E11.9 Dermatitis L30.9 Chronic venous insufficiency I87.2 Chronic atrial fibrillation I48.2 Time Spent (min) 35
[2021-12-23] MEDS: METOPROLOL SUCC 50MG EXT REL TAB PO SCH (22:13)
[2021-12-24] MEDS: MEROPENEM 500 MG in SYRINGE 0 ML IV SCH ×3 (00:30→13:58)
--- NOTE | 2021-12-24 05:16 | Billing Data ---
Date of Service December 24, 2021 Coding Level of Care Code 99083 Initial Inpt Care Lvl 3
[2021-12-24] MEDS: LEVOTHYROXINE SODIUM 150 MCG TABLET PO SCH (05:43)
[2021-12-24 07:24] LABS: Hematocrit (blood only) 44.6 % (40.1-51.0); Hemoglobin 14.8 g/dl (14.0-18.0); Mean Corpuscular Hemoglobin 31.4 pg (25.0-34.0); Mean Corpuscular Hgb Conc 33.2 g/dL (32.0-36.0); Mean Corpuscular Volume 94.7 fL (80.0-100.0); Mean Platelet Volume 10.7 fL (9.4-12.4); Platelet Count 175 K/uL (130-400); RDW Coefficient of Variation 15.2 % (11.5-14.5); RDW Standard Deviation 52.4 fL (36.4-46.3); Red Blood Count 4.71 M/uL (4.63-6.08); White Blood Count 6.63 K/ul (4.8-10.8)
[2021-12-24 07:40] LABS: INR 1.8 (0.9-1.1); Prothrombin Time 18.9 Seconds (9.0-12.0)
[2021-12-24 08:21] LABS: BUN Creatinine Ratio 16.8 (10-20); Calcium 8.5 mg/dl (8.5-10.1); Creatinine Clr Calc Pharmacy 49.7 ml/min; Est GFR (African American) 43.2 ml/min; Est GFR (Non-African American) 37.3 ml/min; Potassium 4.2 mmol/L (3.5-5.1)
[2021-12-24] MEDS: DAPTOmycin 650 MG in SYRINGE 0 ML IV SCH (08:35)
[2021-12-24] MEDS: allopurinoL 300 MG TAB PO SCH (08:35)
[2021-12-24] MEDS: ROSUVASTATIN CALCIUM 5 MG TAB PO SCH (08:35)
[2021-12-24] MEDS ORDERED: CEFEPIME 500 MG in SYRINGE 0 ML IV SCH (11:30)
--- NOTE | 2021-12-24 11:31 | Hospitalist Progress Note ---
Date of Service December 24, 2021 Assessment & Plan (1) Recurrent cellulitis of lower leg: Plan: This is 76-year-old male with a history of recurrent cellulitis of the left foot, CKD stage III, atrial fibrillation on warfarin, hypertension, gout, hypothyroidism, DERREK who presented to [facility] for evaluation of worsening pain and erythema in his L foot despite ongoing home therapy with IV daptomycin and ceftazidime. - Exam revealing extensive erythema and swelling of the LLE with weeping, wound dressing currently in place - Arterial duplex 10/2021 and Venous doppler 11/2021 not revealing significant stenosis or venous abnormalities -No evidence of DVT (patient on coumadin) - XR of foot and tibia/fibula with soft tissue edema but no osseous abnormality - Last MRI from 10/2021 reviewed - no evidence of osteo at that time - Blood cultures obtained, negative so far - PrevioussuperficialWCX: Pseudomonas, MRSA, Alc faecal reviewed (lathough per Id, superficial cultures not ideal) -There's underlying lymphedema and chronic venous stasis - Will continue wound dressing, leg elevation -Continue Daptomycing and meropenem -Await Id Recs -PT/OT (2) Diabetes: Plan: Blood glucose under good control continue home meds insulin sliding scale (3) Dermatitis: Plan: Went to see a Supervisor [employer] Adviced to keep legs clean'wash everyday (4) Chronic venous insufficiency: Plan: contributing to the cellulitis (5) Chronic atrial fibrillation: Plan: Rate controlled On Coumadin INR 1.8 today Plan Contionue antibiotics Admission and Anticipated Discharge Date Admission Date: December 22, 2021 Subjective patient seen and examined, no new complaints, wound dressing in place Review of Systems Review of Systems: All systems reviewed are negative, apart from the ones contained in the history. Physical Exam Physical Exam: The patient is awake, alert and oriented 3, well developed and well nourished, normocephalic and atraumatic, lying in bed and in no acute distress. HEENT--PERRL, EOMI, mucous membranes and oropharynx mildly dry Neck--supple. No JVD. No bruits. Thyroid normal, trachea midline, no adenopathy. Heart--normal S1 and S2. No murmurs, rubs or gallops. Lungs--clear bilaterally, no respiratory distress, no accessory muscle use. Abdomen--normal bowel sounds and soft. Mild epigastric and left sided abdominal pain Extremities--no cyanosis or clubbing. No edema. Dermatologic--bilateral leg edema, chronic venous stasis changes, weeping Neurologic--cranial nerves II through XII grossly intact. Rheumatologic--normal range of motion. Psychiatric--normal affect. Results & Data Results & Data ([facility]) Vital Signs (Past 12 Hours) Vital Signs Temp Pulse Resp BP Pulse Ox 12/24/21 07:43 97.7 F 72 16 113/76 96 PG Care Time/CCT Total # of Minutes Spent Total Time Spent with Patient: Total time spent is greater than 50% in coordination of care (as documented) at patient's floor/unit and/or counseling patient: Coding Level of Care Code 94104 Subseq Hosp Care Lvl 2 Diagnoses Recurrent cellulitis of lower leg L03.119 Diabetes E11.9 Dermatitis L30.9 Chronic venous insufficiency I87.2 Chronic atrial fibrillation I48.2 Time Spent (min) 35
[2021-12-24] MEDS: WARFARIN SOD 5 MG TAB PO SCH (16:51)
[2021-12-24] MEDS: METOPROLOL SUCC 50MG EXT REL TAB PO SCH (20:21)
[2021-12-25] MEDS: LEVOTHYROXINE SODIUM 150 MCG TABLET PO SCH (06:04)
[2021-12-25 07:51] LABS: INR 1.6 (0.9-1.1); Prothrombin Time 16.3 Seconds (9.0-12.0)
[2021-12-25] MEDS: allopurinoL 300 MG TAB PO SCH (08:34)
[2021-12-25] MEDS: DAPTOmycin 650 MG in SYRINGE 0 ML IV SCH (08:34)
[2021-12-25] MEDS: ROSUVASTATIN CALCIUM 5 MG TAB PO SCH (08:34)
[2021-12-25 09:19] LABS: Hematocrit (blood only) 45.6 % (40.1-51.0); Hemoglobin 15.2 g/dl (14.0-18.0); Mean Corpuscular Hemoglobin 31.5 pg (25.0-34.0); Mean Corpuscular Hgb Conc 33.3 g/dL (32.0-36.0); Mean Corpuscular Volume 94.6 fL (80.0-100.0); Mean Platelet Volume 11.1 fL (9.4-12.4); Platelet Count 196 K/uL (130-400); RDW Coefficient of Variation 15.4 % (11.5-14.5); RDW Standard Deviation 53.1 fL (36.4-46.3); Red Blood Count 4.82 M/uL (4.63-6.08); White Blood Count 6.67 K/ul (4.8-10.8)
[2021-12-25 09:30] LABS: BUN Creatinine Ratio 16.8 (10-20); C Reactive Protein 1.44 mg/dl (0-0.5); Calcium 8.9 mg/dl (8.5-10.1); Creatinine Clr Calc Pharmacy 46.7 ml/min; Est GFR (African American) 40.1 ml/min; Est GFR (Non-African American) 34.6 ml/min; Potassium 4.4 mmol/L (3.5-5.1)
--- NOTE | 2021-12-25 11:21 | Hospitalist Progress Note ---
Date of Service December 25, 2021 Assessment & Plan (1) Recurrent cellulitis of lower leg: Plan: This is 76-year-old male with a history of recurrent cellulitis of the left foot, CKD stage III, atrial fibrillation on warfarin, hypertension, gout, hypothyroidism, DERREK who presented to [facility] for evaluation of worsening pain and erythema in his L foot despite ongoing home therapy with IV daptomycin and ceftazidime. - Arterial duplex 10/2021 and Venous doppler 11/2021 not revealing significant stenosis or venous abnormalities -No evidence of DVT (patient on coumadin) - XR of foot and tibia/fibula with soft tissue edema but no osseous abnormality - Last MRI from 10/2021 reviewed - no evidence of osteo at that time - Blood cultures obtained, negative so far - PrevioussuperficialWCX: Pseudomonas, MRSA, Alc faecal reviewed ( although, per ID, superficial cultures not ideal) -There's underlying lymphedema and chronic venous stasis - Will continue wound dressing, leg elevation -Continue Daptomycing and meropenem -Await Id Recs -PT/OT (2) Diabetes: Plan: Blood glucose under good control continue home meds (3) Dermatitis: Plan: Went to see a On Site Property Manager Adviced to keep legs clean'wash everyday (4) Chronic venous insufficiency: Plan: contributing to the cellulitis (5) Chronic atrial fibrillation: Plan: Rate controlled On Coumadin INR 1.6 today Plan Contionue antibiotics Admission and Anticipated Discharge Date Admission Date: December 22, 2021 Subjective patient seen and examined, no new complaints, about to get his wound dressing Review of Systems Review of Systems: All systems reviewed are negative, apart from the ones contained in the history. Physical Exam Physical Exam: The patient is awake, alert and oriented 3, well developed and well nourished, normocephalic and atraumatic, lying in bed and in no acute distress. HEENT--PERRL, EOMI, mucous membranes and oropharynx mildly dry Neck--supple. No JVD. No bruits. Thyroid normal, trachea midline, no adenopathy. Heart--normal S1 and S2. No murmurs, rubs or gallops. Lungs--clear bilaterally, no respiratory distress, no accessory muscle use. Abdomen--normal bowel sounds and soft. Mild epigastric and left sided abdominal pain Extremities--no cyanosis or clubbing. No edema. Dermatologic--bilateral leg edema, chronic venous stasis changes, weeping Neurologic--cranial nerves II through XII grossly intact. Rheumatologic--normal range of motion. Psychiatric--normal affect. Results & Data Results & Data ([facility]) Vital Signs (Past 12 Hours) Vital Signs Temp Pulse Resp BP Pulse Ox 12/25/21 07:40 97.9 F 62 16 120/70 97 PG Care Time/CCT Total # of Minutes Spent Total Time Spent with Patient: Total time spent is greater than 50% in coordination of care (as documented) at patient's floor/unit and/or counseling patient: Coding Level of Care Code 41298 Subseq Hosp Care Lvl 2 Diagnoses Recurrent cellulitis of lower leg L03.119 Diabetes E11.9 Dermatitis L30.9 Chronic venous insufficiency I87.2 Chronic atrial fibrillation I48.2 Time Spent (min) 35
[2021-12-25] MEDS: WARFARIN SOD 7.5 MG TAB PO SCH (15:55)
[2021-12-25] MEDS: METOPROLOL SUCC 50MG EXT REL TAB PO SCH (20:30)
[2021-12-26] MEDS: LEVOTHYROXINE SODIUM 150 MCG TABLET PO SCH (06:20)
[2021-12-26] MEDS: DAPTOmycin 650 MG in SYRINGE 0 ML IV SCH (08:14)
[2021-12-26] MEDS: ROSUVASTATIN CALCIUM 5 MG TAB PO SCH (08:17)
[2021-12-26] MEDS: allopurinoL 300 MG TAB PO SCH (08:17)
[2021-12-26 08:40] LABS: Hematocrit (blood only) 44.5 % (40.1-51.0); Hemoglobin 14.8 g/dl (14.0-18.0); Mean Corpuscular Hemoglobin 31.6 pg (25.0-34.0); Mean Corpuscular Hgb Conc 33.3 g/dL (32.0-36.0); Mean Corpuscular Volume 94.9 fL (80.0-100.0); Platelet Count 199 K/uL (130-400); RDW Coefficient of Variation 15.2 % (11.5-14.5); RDW Standard Deviation 52.8 fL (36.4-46.3); Red Blood Count 4.69 M/uL (4.63-6.08); White Blood Count 8.38 K/ul (4.8-10.8)
--- NOTE | 2021-12-26 08:51 | Hospitalist Progress Note ---
Date of Service December 26, 2021 Assessment & Plan (1) Recurrent cellulitis of lower leg: Plan: This is 76-year-old male with a history of recurrent cellulitis of the left foot, CKD stage III, atrial fibrillation on warfarin, hypertension, gout, hypothyroidism, DERREK who presented to [facility] for evaluation of worsening pain and erythema in his L foot despite ongoing home therapy with IV daptomycin and ceftazidime. Recurrent left lower extremity cellulitis: - Arterial duplex 10/2021 and Venous doppler 11/2021 not revealing significant stenosis or venous abnormalities. - No evidence of DVT (patient on coumadin, but with subtherapeutic INR). - XR of foot and tibia/fibula with soft tissue edema but no osseous abnormality. - MRI left foot performed on 12/05/2021 without evidence of osteomyelitis, but did show nonspecific subcutaneous edema. - Blood cultures obtained, negative. - Previous superficial wound culture: Pseudomonas, MRSA, Alc faecal reviewed. - Continue wound dressing, leg elevation. - Daptomycin and meropenem started on 12/22/21; meropenem noted last dose per EMR was on 12/24; will resume this. - Continue to await ID recommendations regarding duration of therapy given resistance despite receiving dapto/ceftaz outpatient. - PT and OT ordered. (2) Chronic atrial fibrillation: Plan: - Rate controlled, continue metoprolol. - INR 1.5 today. - Discussed with Dr. Zheng: will give Lovenox daily until INR at goal. Will also give total of 12.5mg coumadin today as he has a history of decreasing INRs on antibiotics. - Repeat INR in am. (3) Diabetes: Plan: - BSGs well to date. Not on any meds at home. - Ordered loose SSI for DM2 patient if needed; has not required meds to date. (4) Chronic venous insufficiency: Plan: - Certainly contributing to patient's poor wound healing and cellulitis. - Leg wraps, wound care. (5) Hypothyroidism: Plan: - Continue levothyroxine. Plan Code Status: FULL CODE FEN: DM2 DVT ppx: coumadin, Lovenox (to stop with INR >2) Dispo: Med/Surg Admission and Anticipated Discharge Date Admission Date: December 22, 2021 Subjective Patient without any acute events overnight. Patient does not report any lower extremity discomfort except for when the dressings are being taken off of his left foot. He does not endorse chest pain, shortness of breath, abdominal pain, nausea. Review of Systems Constitutional: no fever and no chills Respiratory: no cough and no dyspnea Cardiovascular: no chest pain and no palpitations Gastrointestinal: no abdominal pain, no nausea and no vomiting Physical Exam Constitutional: well developed and + obese Respiratory: normal respiratory effort, lungs clear to auscultation Cardiovascular: Heart regular rate and rhythm no murmurs 3+ pitting edema to bilateral lower extremities and weeping Gastrointestinal (Abdomen): normal bowel sounds, soft, nontender, no hepato splenomegaly Musculoskeletal: extremity strength 5/5 bilateral upper and lower Skin: Bilateral lower extremities with chronic venous stasis changes and edema. Left foot bottom with maceration and yellow scaling. Right foot bottom also with yellow scaling but not as significant as left foot. Left lower extremity erythema isolated from the foot to the mid wood. Psychiatric: A+Ox3, euthymic affect Results & Data Results & Data ([facility]) Vital Signs (Past 12 Hours) Vital Signs Temp Pulse Resp BP BP Pulse Ox O2 Del Method 12/26/21 07:08 36.5 C 85 18 129/112 H 143/78 H 97 Room Air 12/25/21 22:35 36.7 C 71 20 119/75 98 Room Air PG Care Time/CCT Total # of Minutes Spent Total Time Spent with Patient: Total time spent is greater than 50% in coordination of care (as documented) at patient's floor/unit and/or counseling patient: Coding Level of Care Code 09806 Subseq Hosp Care Lvl 3 Diagnoses Recurrent cellulitis of lower leg L03.119 Chronic atrial fibrillation I48.2 Diabetes E11.9 Chronic venous insufficiency I87.2 Hypothyroidism E03.9
[2021-12-26 08:59] LABS: BUN Creatinine Ratio 19.4 (10-20); Calcium 8.6 mg/dl (8.5-10.1); Creatinine Clr Calc Pharmacy 52.1 ml/min; Est GFR (African American) 45.7 ml/min; Est GFR (Non-African American) 39.5 ml/min; Potassium 4.4 mmol/L (3.5-5.1)
[2021-12-26] MEDS ORDERED: WARFARIN SOD 5 MG TAB PO ONE (11:08)
[2021-12-26 11:26] LABS: INR 1.5 (0.9-1.1); Prothrombin Time 15.8 Seconds (9.0-12.0)
[2021-12-26] MEDS: ENOXAPARIN INJ 40 MG/0.4 ML SYR SQ SCH (11:49)
[2021-12-26] MEDS: MEROPENEM 500 MG in SYRINGE 0 ML IV SCH ×3 (11:49→22:02)
[2021-12-26] MEDS ORDERED: GLUCOSE 10 TAB/TUBE PO PRN (13:54)
[2021-12-26] MEDS ORDERED: CARBOHYDRATES FOR HYPOGLYCEMIA PO PRN (13:54)
[2021-12-26] MEDS ORDERED: DEXTROSE 50% 50 ML SYRINGE IV PRN (13:54)
[2021-12-26] MEDS ORDERED: GLUCAGON FOR INJ 1 MG VIAL SQ PRN (13:54)
[2021-12-26] MEDS ORDERED: GLUCOSE 40% GEL 15 GM TUBE PO PRN (13:54)
[2021-12-26] MEDS: WARFARIN SOD 7.5 MG TAB PO SCH (17:58)
[2021-12-26] MEDS: INSULIN ASPART PER UNIT SC SCH ×2 (18:01→21:15)
[2021-12-26] MEDS: METOPROLOL SUCC 50MG EXT REL TAB PO SCH (22:02)
[2021-12-27] MEDS: MEROPENEM 500 MG in SYRINGE 0 ML IV SCH ×4 (05:30→21:40)
[2021-12-27] MEDS: LEVOTHYROXINE SODIUM 150 MCG TABLET PO SCH (05:30)
[2021-12-27 06:15] LABS: Hematocrit (blood only) 43.2 % (40.1-51.0); Hemoglobin 14.4 g/dl (14.0-18.0); Mean Corpuscular Hemoglobin 31.1 pg (25.0-34.0); Mean Corpuscular Hgb Conc 33.3 g/dL (32.0-36.0); Mean Corpuscular Volume 93.3 fL (80.0-100.0); Platelet Count 208 K/uL (130-400); RDW Coefficient of Variation 14.8 % (11.5-14.5); RDW Standard Deviation 50.6 fL (36.4-46.3); Red Blood Count 4.63 M/uL (4.63-6.08); White Blood Count 7.56 K/ul (4.8-10.8)
[2021-12-27 06:27] LABS: INR 1.6 (0.9-1.1); Prothrombin Time 16.7 Seconds (9.0-12.0)
[2021-12-27 06:40] LABS: BUN Creatinine Ratio 19.6 (10-20); Calcium 8.4 mg/dl (8.5-10.1); Creatinine Clr Calc Pharmacy 51.2 ml/min; Est GFR (African American) 44.7 ml/min; Est GFR (Non-African American) 38.6 ml/min; Potassium 4.5 mmol/L (3.5-5.1)
[2021-12-27] MEDS: ENOXAPARIN INJ 40 MG/0.4 ML SYR SQ SCH (08:12)
[2021-12-27] MEDS: ROSUVASTATIN CALCIUM 5 MG TAB PO SCH (08:12)
[2021-12-27] MEDS: DAPTOmycin 650 MG in SYRINGE 0 ML IV SCH (08:13)
[2021-12-27] MEDS: allopurinoL 300 MG TAB PO SCH (08:13)
[2021-12-27] MEDS: INSULIN ASPART PER UNIT SC SCH ×4 (08:18→21:48)
--- NOTE | 2021-12-27 10:12 | Hospitalist Progress Note ---
Date of Service December 27, 2021 Assessment & Plan (1) Recurrent cellulitis of lower leg: Plan: This is 76-year-old male with a history of recurrent cellulitis of the left foot, CKD stage III, atrial fibrillation on warfarin, hypertension, gout, hypothyroidism, DERREK who presented to [facility] for evaluation of worsening pain and erythema in his L foot despite ongoing home therapy with IV daptomycin and ceftazidime. Recurrent left lower extremity cellulitis: - Patient has a history of chronic venous stasis dermatitis, follows with wound care and with Dr. Luna with Dermatology. - Has had several admissions over the last several months due to complaints of recurrent cellulitis, with superficial infections growing resistant organisms requiring broad-spectrum antibiotics. - Presented from clinic due to concern from provider for worsening redness on left lower extremity despite outpatient treatment with vancomycin/ceftazidime. - Arterial duplex 10/2021 and Venous doppler 11/2021 not revealing significant stenosis or venous abnormalities. - No evidence of DVT (patient on Coumadin, but with subtherapeutic INR). - XR of foot and tibia/fibula with soft tissue edema but no osseous abnormality. - MRI left foot performed on 12/05/2021 without evidence of osteomyelitis, but did show nonspecific subcutaneous edema. - Blood cultures obtained, negative. - Previous superficial wound culture: Pseudomonas, MRSA, Alc faecal reviewed. - Infectious disease telemedicine consult completed and appreciate recommendations: - Unclear why patient's symptoms have failed to resolve on left lower extremity. Did recommend consult with dermatology regarding potential biopsy to confirm cause of skin changes with cultures as well. - Case was discussed with dermatology (Dr. Luna) who has seen this patient in the past. Photos were reviewed by dermatology. -It is not felt that a biopsy would be necessary at this time, and feels that patient's presentation is largely due to severe venous stasis dermatitis as compared to her worsening cellulitis. - Daptomycin and meropenem started on 12/22/21; meropenem total of 4 days received to date. Will evaluate patient's left extremity tomorrow and if he has continued to have decrease in discoloration of the leg then this would point more towards an infectious process. Patient did present with mild leukocytosis and increased subjective redness, however patient's wound care photos appear similar in quality to last admission. - PT and OT ordered. - Continue daily wound dressing, leg elevation, compression if possible. -Will benefit from lymphedema therapy, possibly by [employer] [facility], on discharge. (2) Venous stasis dermatitis of both lower extremities: Plan: See above (3) Chronic atrial fibrillation: Plan: - Rate controlled, continue metoprolol. - INR 1.6 today. - Daily Lovenox until INR at goal (23). Patient receives warfarin 7.5mg ///Sun, 5mg //Sun. Will give additional 5 mg today with repeat INR in the morning. (4) Diabetes: Plan: - BSGs at goal to date. Not on any meds at home. - Ordered loose SSI for DM2 patient if needed; has not required meds to date. (5) Hypothyroidism: Plan: - Continue levothyroxine. Plan Code Status: FULL CODE FEN: DM2 DVT ppx: Coumadin, Lovenox until INR >2 Dispo: Med/Surg Admission and Anticipated Discharge Date Admission Date: December 22, 2021 Subjective Today had long discussion with patient about multifactorial issues with dermatitis and possible cellulitis. Patient reports that on his last discharge while his feet were not at their baseline, his redness on his left leg was similar to his right, where is now the redness on the left leg has spread up to close to the knee. He denies pain in his feet. He denies fevers or chills. Review of Systems Constitutional: no fever and no chills Respiratory: no cough and no dyspnea Cardiovascular: no chest pain and no palpitations Gastrointestinal: no abdominal pain, no nausea and no vomiting Physical Exam Constitutional: well developed and + obese Respiratory: normal respiratory effort, lungs clear to auscultation Cardiovascular: Heart regular rate and rhythm no murmurs 3+ pitting edema to bilateral lower extremities and weeping Gastrointestinal (Abdomen): normal bowel sounds, soft, nontender, no hepatosplenomegaly Musculoskeletal: extremity strength 5/5 bilateral upper and lower Skin: Bilateral lower extremities with chronic venous stasis changes and edema. Left foot bottom with maceration, valera-red color, and yellow scaling. Right foot bottom also with yellow scaling but not as significant as left foot. Left lower extremity erythema on left leg stops before the knee and there is clearing prior to the demarcation line that was drawn on admission Psychiatric: A+Ox3, euthymic affect Results & Data Results & Data ([place]) Vital Signs (Past 12 Hours) Vital Signs Temp Pulse Resp BP Pulse Ox O2 Del Method 12/27/21 07:29 36.5 C 84 18 116/81 96 Room Air PG Care Time/CCT Total # of Minutes Spent Total Time Spent with Patient: Total time spent is greater than 50% in coordination of care (as documented) at patient's floor/unit and/or counseling patient: Coding Level of Care Code 13522 Subseq Hosp Care Lvl 3 Diagnoses Recurrent cellulitis of lower leg L03.119 Venous stasis dermatitis of both lower extremities I87.2 Chronic atrial fibrillation I48.2 Diabetes E11.9 Hypothyroidism E03.9
[2021-12-27] MEDS ORDERED: WARFARIN SOD 5 MG TAB PO ONE (15:42)
[2021-12-27] MEDS: WARFARIN SOD 5 MG TAB PO SCH (16:33)
[2021-12-27] MEDS ORDERED: oxyCODONE/ACETAMINOPHEN 5mg/325mg TAB PO ONE (20:52)
[2021-12-27] MEDS: METOPROLOL SUCC 50MG EXT REL TAB PO SCH (21:40)
[2021-12-28] MEDS: LEVOTHYROXINE SODIUM 150 MCG TABLET PO SCH (05:30)
[2021-12-28] MEDS: MEROPENEM 500 MG in SYRINGE 0 ML IV SCH ×2 (05:30→11:13)
[2021-12-28 06:38] LABS: Hematocrit (blood only) 45.2 % (40.1-51.0); Hemoglobin 14.9 g/dl (14.0-18.0); Mean Corpuscular Hemoglobin 31.4 pg (25.0-34.0); Mean Corpuscular Volume 95.2 fL (80.0-100.0); Mean Platelet Volume 10.7 fL (9.4-12.4); Platelet Count 218 K/uL (130-400); RDW Coefficient of Variation 14.8 % (11.5-14.5); Red Blood Count 4.75 M/uL (4.63-6.08); White Blood Count 8.67 K/ul (4.8-10.8)
[2021-12-28 07:21] LABS: INR 1.8 (0.9-1.1); Prothrombin Time 18.3 Seconds (9.0-12.0)
[2021-12-28] MEDS: INSULIN ASPART PER UNIT SC SCH ×4 (10:06→20:43)
[2021-12-28] MEDS: allopurinoL 300 MG TAB PO SCH (10:14)
[2021-12-28] MEDS: ROSUVASTATIN CALCIUM 5 MG TAB PO SCH (10:15)
[2021-12-28] MEDS: DAPTOmycin 650 MG in SYRINGE 0 ML IV SCH (10:15)
[2021-12-28] MEDS: ENOXAPARIN INJ 40 MG/0.4 ML SYR SQ SCH (10:16)
--- NOTE | 2021-12-28 12:22 | Magnetic Resonance Report ---
MRI OF THE LEFT FOREFOOT WITHOUT IV CONTRAST CLINICAL HISTORY: Foot infection. Swelling and erythema. COMPARISON STUDY: MRI of the left forefoot dated 12/05/2021. Radiographs of the left foot dated 022. TECHNIQUE: MRI of the left forefoot is performed utilizing various T1 and T2 weighted sequences in th e axial, sagittal, and coronal planes. IV contrast was not administered for this examination. FINDINGS: No acute fracture is seen. There is no marrow signal abnormality identified in the forefoot typical for osteomyelitis. 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 Mild degenerative change is also seen at the first metatar sophalangeal joint. There is chronic posttraumatic deformity of the fourth metatarsal shaft. There is diffuse soft tissue edema seen throughout the forefoot, greatest dorsally. No organized fluid collec tion is seen to indicate abscess. The visualized flexor and extensor tendons appear intact. There is diffuse denervation change seen throughout the regional musculature. The Lisfranc ligament is maintai elsa. Imaged portions of the plantar fascia appear intact. IMPRESSION: 1. There is no MRI evidence of osteomyelitis. 2. Diffuse soft tissue edema suggests cellulitis. This is greatest dorsally. Clinical correlation woodrow l be required. 3. There is no evidence of organized fluid collection to indicate abscess. 4. Additional findings as above. Dictated: 12/28/2021 9:05 AM Transcribed: 12/28/2021 9:18 AM Carrie [id number] JORGE [email or web address]_Kiki Electronically signed by: Aly Devine M.D. 12/28/2021 12:20 PM
--- NOTE | 2021-12-28 13:59 | Hospitalist Progress Note ---
Date of Service December 28, 2021 Assessment & Plan (1) Venous stasis dermatitis of both lower extremities: Plan: This is 76-year-old male with a history of recurrent cellulitis of the left foot, CKD stage III, atrial fibrillation on warfarin, hypertension, gout, hypoth yroidism, DERREK who presented to [facility] for evaluation of worsening pain and erythema in his L foot despite ongoing home therapy with IV daptomycin and ceftazidime. Recurrent left lower extremity cellulitis: - Patient has a history of chronic venous stasis dermatitis, follows with wound care and with Dr. Luna with Dermatology. - Has had several admissions over the last several months due to complaints of recurrent cellulitis, with superficial cultures growing resistant organisms requiring broad-spectrum antibiotics. - Presented from clinic due to concern from provider for worsening redness on left lower extremity despite outpatient treatment with vancomycin/ceftazidime. - Arterial duplex 10/2021 and Venous doppler 11/2021 not revealing significant stenosis or venous abnormalities. - No evidence of DVT (patient on Coumadin, but with subtherapeutic INR). - XR of foot and tibia/fibula with soft tissue edema but no osseous abnormality. - MRI left foot performed on 12/05/2021 without evidence of osteomyelitis, but did show nonspecific subcutaneous edema. - Repeat MRI left foot 12/27 again showed nonspecific swelling without osteomyelitis. - Blood cultures obtained, negative. - Previous superficial wound culture: Pseudomonas, MRSA, Alc faecal reviewed. - Case was discussed with Dermatology (Dr. Luna) who has seen this patient in the past. Wound photos were reviewed by Dermatology. - It is not felt that a biopsy would be necessary at this time, and feels that patient's presentation is largely due to severe venous stasis dermatitis as compared to worsening cellulitis. - Resume desoximetasone ointment (or equivalent topical steroid ointment) to lower leg and foot daily. - Daily cleanse with wash such as Selsun Blue/Head & Shoulders/Nizoral to affected body areas for seborrheic dermatitis. - Infectious disease telemedicine consult ordered and appreciate recommendations: - Discussed with Dr. Tony with [facility]. She saw patient via telehealth, and after reviewing case, recommendation was made that this presentation is likely NOT an infection, but a severe stasis / seborrheic dermatitis. Despite aggressive broad spectrum antibiotics, patient's redness is not improving, and patient does not have a process such as osteomyelitis which would make treatment more challenging. Will stop antibiotics at this time after careful consideration with Dr. Tony and Dr. Luna, in favor of aggressive wound care, compression, and lymphedema therapy. - Continue daily wound dressing, leg elevation, compression. - Will benefit greatly from lymphedema therapy, possibly by [facility], on discharge. (2) Chronic atrial fibrillation: Plan: - Rate controlled, continue metoprolol. - INR 1.8 today. Patient receives warfarin 7.5mg ///Sun, 5mg //Sun. Will give additional 5 mg today with repeat INR in the morning. - Daily Lovenox until INR at goal (23). (3) Diabetes: Plan: - BSGs at goal to date. Not on any meds at home. - Ordered loose SSI for DM2 patient if needed. (4) Hypothyroidism: Plan: - Continue levothyroxine. Plan Code Status: FULL CODE FEN: DM2 DVT ppx: Coumadin, Lovenox until INR >2 Dispo: Med/Surg; anticipate discharge tomorrow Admission and Anticipated Discharge Date Admission Date: December 22, 2021 Subjective No acute events overnight. Reports that his leg to him looks "about the same today". He denies any chest pain, shortness of breath, nausea or vomiting, abdominal pain. Review of Systems Constitutional: no fever and no chills Respiratory: no cough and no dyspnea Cardiovascular: no chest pain and no palpitations Gastrointestinal: no abdominal pain, no nausea and no vomiting Physical Exam Constitutional: well developed and + obese Respiratory: normal respiratory effort, lungs clear to auscultation Cardiovascular: Heart regular rate and rhythm no murmurs 3+ pitting edema to bilateral lower extremities and weeping Gastrointestinal (Abdomen): normal bowel sounds, soft, nontender, no hepatosplenomegaly Musculoskeletal: extremity strength 5/5 bilateral upper and lower Skin: no change in color/scaling of LLE yellow flaking/crusts noted on patients palms, scalp, nasolabial folds as well as bilateral LE Psychiatric: A+Ox3, euthymic affect Results & Data Results & Data ([facility]) Vital Signs (Past 12 Hours) Vital Signs Temp Pulse Resp BP Pulse Ox O2 Del Method 12/28/21 07:19 36.5 C 74 18 114/69 96 Room Air PG Care Time/CCT Total # of Minutes Spent Total Time Spent with Patient: Total time spent is greater than 50% in coordination of care (as documented) at patient's floor/unit and/or counseling patient: Coding Level of Care Code 79219 Subseq Hosp Care Lvl 3 Diagnoses Venous stasis dermatitis of both lower extremities I87.2 Chronic atrial fibrillation I48.2 Diabetes E11.9 Hypothyroidism E03.9
[2021-12-28] MEDS ORDERED: WARFARIN SOD 5 MG TAB PO ONE (17:11)
[2021-12-28] MEDS: WARFARIN SOD 7.5 MG TAB PO SCH (17:30)
--- NOTE | 2021-12-28 17:33 | Infectious Disease Consult ---
Date of Consultation December 28, 2021 Assessment & Plan (1) Recurrent cellulitis of lower leg: Plan #recurrent cellulitis of L leg -underlying severe lymphedema and stasis dermatitis -superficial wounds with oozing- do not think clinically any suspicion for deeper infection -12/22 Bcxs NGTD -recent very broad-spectrum antibiotics administered (ceftaz/daptomycin) without significant benefit per pt -pt has been on meropenem and daptomycin this admission without noted benefit -evidence of more diffuse seborrheic dermatitis as well - pt follows with dermatology as outpatient Rec: Would stop antibiotics at this time, given there is no evidence of active cellulitis at this time. Pt continues to be at risk for recurrent episodes of superinfection however, as it appears he is not getting sufficient treatment of the underlying medical issues. Agree with dermatology that pt needs treatment/management of underlying venous stasis dermatitis and chronic lymphedema. Pt has not tried management modalities such as compression dressings or unna boots, and appears to apply limited compression- likely due to discomfort. He also reports only applying Gold rivas lotion to leg. Recommend followup with dermatology for treatment of stasis dermatitis, as well as what appears to be a more generalized superficial fungal dermatological condition such as seborrheic dermatitis. Recommend follow up at a lymphedema clinic if available- per discussion with Dr. Dale, he will be set up with an office that provides lymphedema care. Pt is in agreement with stopping abx at this time. Recs discussed with Dr. Villasenor- please call back if any further ID questions. Consultation Information Consultation was provided via telemedicine using two-way real-time interactive telecommunication between the patient and the telemedicine provider. For the duration of the visit, the provider was performing the assessment from a different facility than the patient. This includesuse of bluetooth stethoscope forauscultationperformed by the telepresenter that the telemedicine provider can hear if described in the physical exam. [employer] contact information: Please call [facility] [phone]. (Phone Number For Physician Use Only) After establishing a telemedicine visit, patient was: Patient was verified with two unique identifiers, Patient/authorized rep acknowledged consent and understanding and Gave permission to continue telehealth session History of Present Illness Attending Physician: Melanie Dale, DO History of Present Illness ID consult requested for recurrent cellulitis in this 76-year-old male, past medical history of atrial fibrillation, hypertension, gout, hypothyroidism, DERREK, CKD, recurrent cellulitis of the left foot, who presented to [facility] on 12/22 due to complaint of worsening pain and erythema in the left foot despite home antibiotic treatment with IV daptomycin and ceftazidime. Patient was seen by Dr. Dieudonne Hoang for ID consult on 12/26. It was noted that patient was known to the ID service from previous hospitalizations most recently in mid-November 2021 when patient had worsening left lower leg swelling and erythema. Noncontrast MRI at that time was negative for osteomyelitis. Patient had been discharged on daptomycin plus ceftazidime on 12/09. Patient reported that his lower extremity erythema/edema had persisted. He denied any fevers or chills. Dr. Hoang was concerned about lack of response to broad spectrum abx and recommended consultation with dermatology regarding biopsy and obtaining aerobic and anaerobic bacterial cultures, fungal cultures and AFB cultures along with a separate sample to pathology for histopathology examination. Meropenem was recommended to be discontinued, while vancomycin continued. Patient's hospitalist then discussed these recs with news camera operator who reviewed photos and recommended that patient be treated his venous stasis dermatitis as opposed to cellulitis as his extremities did not look worse than previous out patient dermatology visits (for example on 12/16). Digital Strategist Senior Manager did not feel biopsy would be necessary for diagnosis given this is known diagnosis for patient in setting of significant lymphedema. He recommended lower extremity elevation, wrapping, and outpatient follow-up with dermatology and wound care. 12/05 MRI left foot showed nonspecific subcutaneous edema without evidence of osteomyelitis. 12/22 blood cultures no growth to date. Patient with prior superficial wound cultures. On 11/22/2021 left foot wound culture grew Pseudomonas susceptible to Cipro and levofloxacin along with MRSA and alcaligenes faecalis. Daptomycin meropenem was started on 12/22. Meropenem last dose was on 12/24. This was resumed on 12/26. Pt confirms today that he has not seen improvement on antibiotics. He reports that he had been seeing wound care but had been discharged from wound care clinic several weeks ago. He states this was as he did not need debridement. Debridement had also been advised against by his news camera operator. He has what appears to be diffuse seborrheic dermatitis- he reports a topical was not recommended by his news camera operator. He has not been seen at a lymphedema clinic before. He applies Gold rivas healing lotion to his leg, uses intermittent pneumatic compression device and tries to elevated his legs above heart daily. He has not used wraps. He denies any abd pain or diarrhea. Allergies Allergy/AdvReac Type Severity Reaction Status Date / Time sulfamethoxazole Allergy Severe Hives, Verified 12/16/21 14:49 [From skin Sulfamethoxazole-Trimethoprim] sloughing trimethoprim Allergy Severe Hives, Verified 12/16/21 14:49 [From skin Sulfamethoxazole-Trimethoprim] sloughing hydrochlorothiazide Allergy Unknown "shut down Verified 12/16/21 14:49 kidneys" Home Medications Medication Instructions Recorded Confirmed Type metoprolol succinate 100 mg 100 mg PO HS ##0 08/07/16 12/22/21 History tablet,extended release 24 hr allopurinol 300 mg tablet 300 mg PO QAM 01/02/19 12/22/21 History levothyroxine 150 mcg tablet 150 mcg PO QAM 10/31/21 12/22/21 History rosuvastatin 5 mg tablet (Crestor) 5 mg PO QAM 11/21/21 12/22/21 History cholecalciferol (vitamin D3) 25 25 mcg PO QAM 11/22/21 12/22/21 History mcg (1,000 unit) tablet (Vitamin D3) ceftazidime 2 gram intravenous 2 g IV Q8H #10 ea 12/09/21 12/22/21 Rx solution daptomycin 500 mg intravenous 650 mg IV DAILY #10 ea 12/09/21 12/22/21 Rx solution warfarin 5 mg tablet See Rx Instructions PO UD 12/22/21 History Patient History Medical History Atrial fibrillation, chronic BPH (benign prostatic hyperplasia) Cellulitis of left anterior lower leg Chronic atrial fibrillation Chronic kidney disease, stage III (moderate) Chronic ulcer of left foot Gout Hearing deficit History of basal cell carcinoma Hypertension Hypothyroidism Leukocytosis Obesity On anticoagulant therapy Penile hypospadias Prediabetes Renal cyst Sepsis Sleep apnea cpap Venous stasis ulcer Surgical History History of esophagogastroduodenoscopy (EGD) Family History Other Hearing loss No family history of adverse response to anesthesia No family history of bleeding disorder Denies family history of Heart disease Allergies Cancer Hypertension Stroke Asthma Social History Smoking Status: Former smoker Tobacco Type: Cigarettes packs per day: 1; Second Hand Exposure: No; Hx Alcohol Use: No Hx Substance Use: No Preferred Language: Sinhala Communication Ability: Effective Visual Impairment: Limited Hearing Ability: Hard of Hearing Supervisor Electronics Inspection Required: No Beliefs That Will Affect Care: None marital status: Current Living Situation: Spouse current occupational status: retired How many Children do You have: 1 How many Children do You have Comment: 3 local, pt independent with care. Feels Safe at Home: Yes Assistive Devices: CPAP Physical Exam Physical Exam: PE: Gen: Awake, alert, NAD HEENT: anicteric Resp: no resp distress on RA Abd: Soft, NT, ND Extr: +lymphedema, L>R. L leg with chronic appearing erythema, severe scaling/crusting, several superficial open wounds with oozing, and fissures noted. Limited view of posterior R leg but no open wounds noted. R leg also with chronic venous stasis changes but less erythematous, particularly of foot. L foot is unexpectedly cooler than R. Skin: L peripheral IV ok. Diffuse seborrheic dermatitis noted including on face/ears/arms Results & Data ([facility]) Vital Signs (Past 12 Hours) Vital Signs Temp Pulse Resp BP Pulse Ox O2 Del Method 12/28/21 14:35 36.6 C 78 18 103/70 97 Room Air 12/28/21 07:19 36.5 C 74 18 114/69 96 Room Air
[2021-12-28] MEDS: METOPROLOL SUCC 50MG EXT REL TAB PO SCH (20:43)
[2021-12-29] MEDS: LEVOTHYROXINE SODIUM 150 MCG TABLET PO SCH (05:31)
[2021-12-29 07:32] LABS: Hematocrit (blood only) 44.7 % (40.1-51.0); Mean Corpuscular Hemoglobin 31.4 pg (25.0-34.0); Mean Corpuscular Hgb Conc 33.6 g/dL (32.0-36.0); Mean Corpuscular Volume 93.5 fL (80.0-100.0); Mean Platelet Volume 10.9 fL (9.4-12.4); Platelet Count 218 K/uL (130-400); RDW Coefficient of Variation 14.8 % (11.5-14.5); Red Blood Count 4.78 M/uL (4.63-6.08); White Blood Count 7.36 K/ul (4.8-10.8)
[2021-12-29 07:55] LABS: BUN Creatinine Ratio 17.8 (10-20); Calcium 8.7 mg/dl (8.5-10.1); Creatinine Clr Calc Pharmacy 54.8 ml/min; Est GFR (African American) 48.6 ml/min; Est GFR (Non-African American) 41.9 ml/min; Potassium 4.3 mmol/L (3.5-5.1)
[2021-12-29 08:02] LABS: INR 1.9 (0.9-1.1); Prothrombin Time 19.7 Seconds (9.0-12.0)
[2021-12-29] MEDS: ENOXAPARIN INJ 40 MG/0.4 ML SYR SQ SCH (08:33)
[2021-12-29] MEDS: ROSUVASTATIN CALCIUM 5 MG TAB PO SCH (08:33)
[2021-12-29] MEDS: allopurinoL 300 MG TAB PO SCH (08:33)
[2021-12-29] MEDS ORDERED: BETAMETHASONE DIP AUG (DIPROLENE) 0.05% CR 50 GM TUBE EXT SCH (09:00)
[2021-12-29] MEDS ORDERED: TRIAMCINOLONE ACET 0.1% CR 80 GM TUBE EXT SCH (09:00)
[2021-12-29] MEDS: INSULIN ASPART PER UNIT SC SCH ×2 (09:05→12:59)
--- NOTE | 2021-12-29 09:06 | Discharge Summary ---
Discharge Summary Date of Service December 29, 2021 Admission HPI Per Admitting Provider This is 76-year-old male with a history of recurrent cellulitis of the left foot, CKD stage III, atrial fibrillation on warfarin, hypertension, gout, hypothyroidism, DERREK who presented to [facility] for evaluation of worsening pain and erythema in his L foot. Patient was recently discharged from the hospital, see below. He says that over the last 6 days, the rash has gotten progressively worse. Initially started in his foot and was red and weeping. Then progressed up to his ankle, and now has begun progressing up his leg. He says that weightbearing is painful. He denies any fever, chills, sweats. Denies any changes in appetite. Voiding and stooling appropriately. He says he has not walked around much since this has been going on. Usually sitting throughout the day. Of note, patient was recently discharged from December 09, 2021 for left lower extremity cellulitis that was treated with daptomycin and ceftazidime during his inpatient stay, subsequently discharged on the same regimen at the recommendation of ID. He was seen by dermatology 6 days prior to this admission with reported improvement of his wound; Lymphedema was noted and recommendations were given. His ID consult was reviewedpatient has history of improving with MRSA, Pseudomonas, and Alcalignes coverage. Patient had arterial duplex in October 2021 which demonstrated mild atherosclerotic plaque within the left lower extremity but no evidence of hemodynamically significant stenosis. In November 2021 he had a venous Doppler study, which did not demonstrate DVT; it showed normal compressibility, flow, and augmentation of the deep venous system. Home medications reviewed and include allopurinol, levothyroxine, metoprolol, rosuvastatin, warfarin. In the ED, patient was found to be hemodynamically stable with normal vital signs, afebrile. Admission labs were notable for a normal white count with relative neutrophilia, lymphopenia, eosinophilia. ESR 79. INR 1.7. BUN 31/creatinine 1.7. CRP 1.7. COVID-negative. 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 He was started on meropenem. Admission Exam Per Admitting Provider General: 76-year old male who is alert, oriented, and appears in no acute distress. HEENT: NCAT. - Eyes - Sclera are white, anicteric, and without injection. - Mouth - MMM - Neck - supple, no appreciable JVD Cardiac: Difficult to appreciate given habitus. Of what could be heard - normal rate with irregular rhythm; S1 and S2 present with no murmurs, rubs, or gallops. Pulmonary: Good respiratory effort with symmetric expansion of the chest. No use of accessory muscles. Lungs were clear to auscultation bilaterally with no crackles or wheezes. Abdominal: Normoactive bowel sounds. Abdomen was soft, nondistended, and non- tender to palpation. Extremities: Upper and lower extremities are warm and well perfused. Patient has extensive erythema in the LLE extending from the distal LE (circumferential) and extending to the whole foot. On the medial aspect of the ankle, there is hardened yellow scaling. Capillary refill 1-2 seconds. Unable to palpate pulses due to 3+ edema. Active extension and flexion of the toes and ankle does not cause pain. Psych: Well-developed, well-nourished, appropriately dressed for occasion. Behavior is cooperative and appropriate. Affect is WNL. Insight is appropriate. Principal Dx & Hospital Course #1 = Principal Diagnosis (1) Venous stasis dermatitis of both lower extremities: This is 76-year-old male with a history of recurrent cellulitis of the left foot, CKD stage III, atrial fibrillation on warfarin, hypertension, gout, hypothyroidism, DERREK who presented to [facility] for evaluation of worsening pain and erythema in his L foot despite ongoing home therapy with IV daptomycin and ceftazidime. Recurrent left lower extremity cellulitis: - Patient has a history of chronic venous stasis dermatitis, follows with wound care and with Dr. Luna with Dermatology. - Presented from clinic due to concern from provider for worsening redness on left lower extremity despite outpatient treatment with vancomycin/ceftazidime. - Arterial duplex 10/2021 and Venous doppler 11/2021 not revealing significant stenosis or venous abnormalities. No evidence of DVT. - XR of foot and tibia/fibula with soft tissue edema but no osseous abnormality. - MRI left foot performed on 12/05/2021 without evidence of osteomyelitis, but did show nonspecific subcutaneous edema. Repeat MRI left foot 12/27 again showed nonspecific swelling without osteomyelitis. - Blood cultures obtained, negative. - Previous superficial wound culture: Pseudomonas, MRSA, Alc faecal. - Case was discussed with Dermatology (Dr. Luna) who has seen this patient in the past. Wound photos were reviewed by Dermatology. - Biopsy not necessary at this time, as patient's presentation is largely due to severe venous stasis dermatitis as compared to worsening cellulitis. - Resume desoximetasone ointment (or equivalent topical steroid ointment) to lower leg and foot daily. - Daily cleanse with wash such as Selsun Blue/Head & Shoulders/Nizoral to affected body areas for seborrheic dermatitis. - Infectious disease telemedicine consult ordered and appreciate recommendations: - Discussed with Dr. Tony with [facility]. Recommendation was made that this presentation is likely NOT an infection, but a severe venous stasis dermatitis. - Despite aggressive broad spectrum antibiotics, patient's redness is not improving, and patient does not have a process such as osteomyelitis or vascular stenosis which would make treatment more challenging. - Will stop antibiotics at this time after careful consideration with Dr. Tony and Dr. Luna, in favor of aggressive wound care, bathing, compression, and lymphedema therapy. - Patient would benefit from lymphedema therapy. Refer to home health agency and PCP. (2) Chronic atrial fibrillation: - Rate controlled, continue metoprolol. - Resume home dosing: Warfarin 7.5mg ///Sun, 5mg //Sun. (3) Diabetes: - BSGs at goal to date. Not on any meds at home. - Ordered loose SSI for DM2 patient if needed. (4) Hypothyroidism: - Continue levothyroxine. Plan Disposition: Home with home health services Discharge Exam Constitutional: well developed and + obese Respiratory: normal respiratory effort, lungs clear to auscultation Cardiovascular: Heart regular rate and rhythm no murmurs 3+ pitting edema to bilateral lower extr emities and weeping Gastrointestinal (Abdomen): normal bowel sounds, soft, nontender, no hepatosplenomegaly Musculoskeletal: extremity strength 5/5 bilateral upper and lower Skin: no change in color/scaling of LLE yellow flaking/crusts noted on patients palms, scalp, nasolabial folds as well as bilateral LE Psychiatric: A+Ox3, euthymic affect Updated Medication List Medication Instructions Recorded Confirmed Type metoprolol succinate 100 mg 100 mg PO HS ##0 08/07/16 12/22/21 History tablet,extended release 24 hr allopurinol 300 mg tablet 300 mg PO QAM 01/02/19 12/22/21 History levothyroxine 150 mcg tablet 150 mcg PO QAM 10/31/21 12/22/21 History rosuvastatin 5 mg tablet (Crestor) 5 mg PO QAM 11/21/21 12/22/21 History cholecalciferol (vitamin D3) 25 25 mcg PO QAM 11/22/21 12/22/21 History mcg (1,000 unit) tablet (Vitamin D3) warfarin 5 mg tablet See Rx Instructions PO UD 12/22/21 History Hospital Stay Data Consultations 12/22/21 18:24 ED Decision to Admit Stat 12/28/21 12:29 Consult Infectious Diseases Routine Diagnostic Imagining Performed 12/27/21 17:23 MR foot LT w/o con Routine Discharge Instructions Given to Patient (Per Discharging Provider) You were admitted to the hospital for evaluation of redness in your left foot and leg after being evaluated by your primary care provider. You were initially started on escalated antibiotics: Daptomycin and meropenem. Despite these aggressive antibiotics, the redness and swelling in your foot did not improve. Infectious disease was consulted and recommended a repeat MRI of your left foot to evaluate for osteomyelitis or other concerns, which were not noted. Your case was further discussed with Dr. Pierce with dermatology who felt that your foot problem was due to severe venous stasis dermatitis, not due to cellulitis. This was agreed upon by myself and by infectious disease. While you are at risk for bacterial infections of the legs due to your dermatitis, what is most important at this time is taking care of of the ly mphedema in your legs as well as the dermatitis. You have an appointment with Dr. Luna on Sunday to talk about this further. He recommends that you resume your desoximetasone ointment to the lower leg and foot once daily with your dressing changes. You should wash your legs daily with mild soap and water and apply this ointment prior to moisturizing and wrapping the leg. You should continue Aquacel to the webspaces between your toes. It is extremely important that you keep your legs elevated when you are sitting. It is also very important that the wrappings that you do on your legs provide compression, to move the fluid from the soft tissues into the blood vessels. Both dermatology and infectious disease recommend lymphedema therapy. Please communicate with your home health agency and with your primary care provider with regard to how to best support and reduce your lymphedema. You will not be discharged on any new medications or antibiotics. You should resume your warfarin as scheduled at home with follow-up with anticoagulation clinic. Please keep your appointments with Dr. Luna and with Dr. Heredia on Sunday. If you have any chest pain, trouble breathing, or other concerning symptoms requiring urgent evaluation, please come back to the emergency room. If you have any medication questions, please call your primary care provider or the provider who prescribed those medications. Total Time Total Time Spent Total Time Spent (In Minutes): 40 Coding Level of Care Code D/C DAY MANAGEMENT >30 MINS Diagnoses Venous stasis dermatitis of both lower extremities I87.2 Chronic atrial fibrillation I48.2 Diabetes E11.9 Hypothyroidism E03.9
== END 2021-12-29 15:30 | disposition home health service (06) | DRG 300 ==
LOC: ED 16:11 → 3W 19:20 → SUATTDRO 19:20 → 3W 20:47

== ENCOUNTER 2023-06-04 14:27 | Inpatient (IN) ==
[2023-06-04 14:55] LABS: Basophils # (auto) 0.06 K/uL (0.00-0.20); Basophils % (auto) 0.7 %; Eosinophils # (auto) 0.31 K/uL (0.00-0.50); Eosinophils % (auto) 3.6 %; Hematocrit (blood only) 49.6 % (42.0-52.0); Hemoglobin 16.1 g/dl (14.0-18.0); Immature Granulocytes # (auto) 0.04 K/uL (0.01-0.20); Immature Granulocytes % (auto) 0.5 %; Lymphocytes # (auto) 1.15 K/uL (1.20-3.40); Lymphocytes % (auto) 13.4 %; Mean Corpuscular Hemoglobin 28.9 pg (25.0-34.0); Mean Corpuscular Hgb Conc 32.5 g/dL (32.0-36.0); Mean Platelet Volume 11.8 fL (9.4-12.4); Monocytes # (auto) 0.45 K/uL (0.11-0.59); Monocytes % (auto) 5.2 %; Neutrophils # (auto) 6.59 K/uL (1.40-6.50); Neutrophils % (auto) 76.6 %; Platelet Count 194 K/uL (130-400); RDW Coefficient of Variation 17.6 % (11.5-14.5); RDW Standard Deviation 55.9 fL (36.4-46.3); Red Blood Count 5.57 M/uL (4.70-6.10)
[2023-06-04 15:12] LABS: Albumin Level 3.7 gm/dl (3.4-5.0); BUN Creatinine Ratio 22.7 (10-20); Bilirubin,Total 0.9 mg/dl (0.2-1.0); Calcium 8.6 mg/dl (8.6-10.3); Creatinine Clr Calc Pharmacy 36.2 ml/min; Est GFR (African American) 26.2 ml/min; Est GFR (Non-African American) 22.6 ml/min; Globulin 3.8 gm/dl (2.5-4.0); Potassium 4.3 mmol/L (3.5-5.1); Total Protein 7.5 gm/dl (6.0-8.3)
--- NOTE | 2023-06-04 15:29 | Emergency Department Note ---
History of Present Illness General Chief complaint: Infection, Wound Time Seen by Provider: 06/04/23 15:17 History of Present Illness Provider complaint: Left lower extremity wound/swelling Onset (ago): month(s) 1 Location: lower extremity and left Maximum Pain Intensity: 0 69-year-old male on Coumadin presents emergency department for left lower extremity swelling and wounds. Patient reports his legs have been swollen he has had wounds on them for months. He denies any recent traumas. No fevers. Patient is not diabetic. Home Medications Medication Instructions Recorded Confirmed Type metoprolol succinate 100 mg 100 mg PO HS ##0 08/07/16 06/04/23 History tablet,extended release 24 hr allopurinol 300 mg tablet 300 mg PO QAM 01/02/19 06/04/23 History rosuvastatin 5 mg tablet (Crestor) 5 mg PO QAM 11/21/21 06/04/23 History cholecalciferol (vitamin D3) 25 25 mcg PO QAM 11/22/21 06/04/23 History mcg (1,000 unit) tablet (Vitamin D3) acetaminophen 500 mg tablet 1,000 mg PO BID PRN foot pain 01/16/22 06/04/23 History levothyroxine 175 mcg tablet 175 mcg PO DAILY 02/14/22 06/04/23 History desoximetasone 0.25 % topical 1 applic topical DAILY #100 grams 04/12/23 06/04/23 Rx ointment warfarin 5 mg tablet See Rx Instructions PO UD #112 tabs 04/30/23 06/04/23 Rx furosemide 20 mg tablet 40 mg PO DAILY 06/04/23 06/04/23 History Allergies Allergy/AdvReac Type Severity Reaction Status Date / Time sulfamethoxazole Allergy Severe Hives, Verified 04/12/23 09:28 [From skin Sulfamethoxazole-Trimethoprim] sloughing trimethoprim Allergy Severe Hives, Verified 04/12/23 09:28 [From skin Sulfamethoxazole-Trimethoprim] sloughing hydrochlorothiazide Allergy Unknown "shut down Verified 04/12/23 09:28 kidneys" Past Med/Surg History Medical History Venous stasis ulcer Leukocytosis Sepsis History of basal cell carcinoma Gout Penile hypospadias BPH (benign prostatic hyperplasia) Renal cyst Hypertension Chronic atrial fibrillation Chronic kidney disease, stage III (moderate) Chronic ulcer of left foot On anticoagulant therapy Hearing deficit Sleep apnea cpap Prediabetes Obesity Atrial fibrillation, chronic Hypothyroidism Cellulitis of left anterior lower leg Surgical History History of esophagogastroduodenoscopy (EGD) Family History Other Hearing loss No family history of adverse response to anesthesia No family history of bleeding disorder Denies family history of Heart disease Allergies Cancer Hypertension Stroke Asthma Social History (Updated 06/04/23 @ 18:07 by Sydnie Kam MD) Smoking Status: Current every day smoker Tobacco Type: Cigarettes packs per day: 1; Second Hand Exposure: No; Do You Dip or Chew Tobacco: No; Hx Alcohol Use: No Hx Substance Use: No Preferred Language: Argentine Communication Ability: Effective Communication Ability Comment: [place], does not have h/a here Visual Impairment: Limited Hearing Ability: Hard of Hearing Moth Proofer Required: No Beliefs That Will Affect Care: None marital status: Current Living Situation: Spouse current occupational status: retired How many Children do You have: 1 How many Children do You have Comment: 3 local, pt independent with care. Feels Safe at Home: Yes Assistive Devices: CPAP Physical Exam Vital Signs Vital Signs - 24 hr 06/04/23 14:30 06/04/23 14:54 Temperature 37.2 C Temperature Source Oral Pulse Rate 115 H 74 Respiratory Rate 20 Respiratory Effort / Characteristics Non-Labored Respiratory Depth Normal Blood Pressure 162/84 H Blood Pressure Mean 110 Pulse Oximetry 94 Oxygen Delivery Method Room Air Sepsis Recent Fever Within 48 Hours No Sepsis New/Unexplained Change in Mental Status No Sepsis Action Taken by Nursing No Action Required Physical Exam GENERAL: He is oriented to person, place, and time. He appears well-developed and well-nourished. He does not appear distressed. HENT: Exam performed. - Head: Normocephalic and atraumatic. EYES: Conjunctivae and EOM are normal. Pupils are equal, round, and reactive to light. Right eye exhibits no discharge. Left eye exhibits no discharge. No scleral icterus. NECK: Normal range of motion. Neck supple. No JVD present. CV: Normal rate, irregular rhythm, normal heart sounds and intact distal pulses. Palpable radial pulses bue. PULM/CHEST: Effort normal and breath sounds normal. No respiratory distress. No stridor. He has no wheezes. He has no rales. MUSC/SKEL: Left lower extremity: Stasis dermatitis. Swelling of the left lower extremity. There are chronic wounds to left lower extremity with cracked skin to the left foot. No discharge. Right lower extremity: Stasis dermatitis. Not as much swelling of this extremity compared to the left lower extremity. Course Course 1517: The patient was evaluated in room B5. A complete history and physical exam was performed Administered Medications Discontinued Medications Daptomycin 450 mg/ Syringe 9 mls @ 4.5 mls/min IV NOW STA; Protocol Stop: 06/04/23 17:11 Last Admin: 06/04/23 17:36 Dose: 4.5 mls/min Documented By: LOTTIE Medical Decision Making Medical Records Attestation: I reviewed the patient's medical records. External medical records reviewed. There is a note from dermatology from March 2023. He presented that day for follow-up of stasis dermatitis of the left lower extremity. Patient has moderate dyshidrotic eczema. Patient was prescribed the best as all ointment to his hands. Patient also has stasis dermatitis which according to Dr. Sellers's note is stable and well-controlled. The patient's last INR of April 2023 was 1.9. Laboratory Data Attestation: I reviewed the patient's lab results. 06/04/23 14:36 06/04/23 14:36 Lab Results 06/04/23 06/04/23 Range/Units 14:36 15:49 WBC 8.60 (4.8-10.8) K/ul RBC 5.57 (4.70-6.10) M/uL Hgb 16.1 (14.0-18.0) g/dl Hct 49.6 (42.0-52.0) % MCV 89.0 (80.0-100.0) fL MCH 28.9 (25.0-34.0) pg MCHC 32.5 (32.0-36.0) g/dL RDW Std Deviation 55.9 H (36.4-46.3) fL RDW Coeff of [place] 17.6 H (11.5-14.5) % Plt Count 194 (130-400) K/uL MPV 11.8 (9.4-12.4) fL Immature Gran % (Auto) 0.5 % Neut % (Auto) 76.6 % Lymph % (Auto) 13.4 % [place] % (Auto) 5.2 % Eos % (Auto) 3.6 % Baso % (Auto) 0.7 % Neut # (Auto) 6.59 H (1.40-6.50) K/uL Lymph # (Auto) 1.15 L (1.20-3.40) K/uL [place]born # (Auto) 0.45 (0.11-0.59) K/uL Eos # (Auto) 0.31 (0.00-0.50) K/uL Baso # (Auto) 0.06 (0.00-0.20) K/uL Immature Gran # (Auto) 0.04 (0.01-0.20) K/uL PT 34.9 H (9.0-12.0) Seconds INR 3.4 H (0.9-1.1) APTT 56 H (21-31) Seconds PTT Ratio 2.0 Sodium 134 L (136-145) mmol/L Potassium 4.3 (3.5-5.1) mmol/L Chloride 105 (98-107) mmol/L Carbon Dioxide 22 (21-32) mmol/L Anion Gap 7 (3-11) BUN 59 H (6-23) mg/dl Creatinine 2.60 H (0.6-1.4) mg/dl Est Cr Clr Drug Dosing 36.2 ml/min Est GFR ( Amer) 26.2 ml/min Est GFR (Non-Af Amer) 22.6 ml/min BUN/Creatinine Ratio 22.7 H (10-20) Glucose 86 (70-99(Fasting)) mg/dl Lactate 1.1 (0.4-2.0) mmol/L Calcium 8.6 (8.6-10.3) mg/dl Total Bilirubin 0.9 (0.2-1.0) mg/dl AST 23 (13-39) U/L ALT 16 (7-52) U/L Alkaline Phosphatase 98 (34-104) U/L Total Protein 7.5 (6.0-8.3) gm/dl Albumin 3.7 (3.4-5.0) gm/dl Globulin 3.8 (2.5-4.0) gm/dl Albumin/Globulin Ratio 1.0 (0.9-2) Procalcitonin 0.09 (0-0.5) ng/ml Imaging Data Radiologist's Impression: Ankle X-Ray 06/04/23 15:23 XR ankle LT min 3V routine HISTORY: 77 years-old Male swelling infetion acute pain and swelling of the left foot and ankle with possible soft tissue infection COMPARISON: Foot radiographs of same day TECHNIQUE: 3 views of the left ankle FINDINGS: Moderate diffuse soft tissue swelling. Spurring of the calcaneus. [id number] osteoarthritis of the ankle. Healed chronic fracture deformity of the fourth metatarsal. Arterial calcifications. No acute fracture, dislocation or osteochondral defect. IMPRESSION: Soft tissue swelling without acute osseous abnormality. ACT 112: Negative or not required by law. The above report was generated using voice recognition software. It may contain grammatical, syntax or spelling errors. Electronically signed by: Peter Castillo M.D. 06/04/2023 4:53 PM Foot X-Ray 06/04/23 15:23 XR foot LT 2V CLINICAL HISTORY: Left foot swelling. Infection. COMPARISON: Left foot radiographs December 22, 2021. MRI of the left foot December 27, 2021. FINDINGS: Dorsal foot soft tissue swelling is present. There is no acute fracture within the left foot. No foci of bony erosion are identified. There is moderate mid foot osteoarthritis. A plantar calcaneal spur is noted. Mild osteophytes left first MTP joint. Evaluation of the toes is mildly compromised given chronic deformity. No soft tissue gas is evident. There is an old, healed left fourth metatarsal fracture. IMPRESSION: 1. No radiographic evidence for acute osteomyelitis within the left foot. No fractures. 2. Left foot soft tissue swelling. ACT 112: Negative or not required by law. Electronically signed by: Calvin Preciado M.D. 06/04/2023 4:54 PM ECG Data Attestation: I personally reviewed and interpreted this ECG as follows: Rate (beats per minute): 74 Rhythm: + atrial fibrillation ECG Intervals/blocks: + Right Bundle branch block and + Normal QT-c ECG ST segments: + Normal ST segments Additional Comments: QRS 142. MDM Narrative Cardiac monitoring: An order was placed for continuous cardiac monitoring. The monitor shows a rate of 70 with atrial fibrilation rhythm interpreted by me Vital signs stable. White blood cell count normal. INR 3.4. Creatinine 2.6 highest it has been. Patient will be admitted for the wounds on his feet and his DALE. Discussed case with . He will evaluate the patient for admission. Impression & Plan DALE (acute kidney injury), Chronic ulcer of left foot, Cellulitis Discharge Plan Visit Data Chief Complaint: Infection, Wound ED Provider: Vinicio Conley Discharge Problem: DALE (acute kidney injury), Chronic ulcer of left foot, Cellulitis Patient Disposition: Being Evaluated by Hospitalist Forms Stand Alone Forms: [facility] Prescriptions Prescriptions: No Action allopurinol 300 mg tablet 300 mg PO QAM rosuvastatin [Crestor] 5 mg tablet 5 mg PO QAM acetaminophen 500 mg tablet 1,000 mg PO BID PRN (Reason: foot pain) levothyroxine 175 mcg tablet 175 mcg PO DAILY metoprolol succinate 100 mg Tablet Extended Release 24 Hr 100 mg PO HS Qty: 0 warfarin 5 mg tablet See Rx Instructions PO UD Qty: 112 1RF Rx Instructions: 5mg q Tues, Thurs, Sat and 7.5mg x 4 days per [facility] orally use as directed; desoximetasone 0.25 % ointment 1 applic topical DAILY Qty: 100 1RF Rx Instructions: Apply to areas of the legs once daily as directed for flaring. cholecalciferol (vitamin D3) [Vitamin D3] 25 mcg (1,000 unit) Tablet 25 mcg PO QAM furosemide 20 mg tablet 40 mg PO DAILY Referrals Referrals: Clovis Heredia [Primary Care Provider] - Discharge Problem: Chronic ulcer of left foot Qualifiers: Non-pressure ulcer stage: unspecified non-pressure ulcer stage Qualified Code(s): L97.529 - Non-pressure chronic ulcer of other part of left foot with unspecified severity Cellulitis Qualifiers: Site of cellulitis: extremity Site of cellulitis of extremity: lower extremity Laterality: unspecified laterality Qualified Code(s): L03.119 - Cellulitis of unspecified part of limb
[2023-06-04 16:06] LABS: INR 3.4 (0.9-1.1); Partial Thromboplastin Time 56 Seconds (21-31); Prothrombin Time 34.9 Seconds (9.0-12.0)
--- NOTE | 2023-06-04 16:54 | XRay Report ---
XR ankle LT min 3V routine HISTORY: 77 years-old Male swelling infetion acute pain and swelling of the left foot and ankle with possible soft tissue infection COMPARISON: Foot radiographs of same day TECHNIQUE: 3 views of the left ankle FINDINGS: Moderate diffuse soft tissue swelling. Spurring of the calcaneus. [id number] osteoarthritis of the ankle. Healed chronic fracture deformity of the fourth metatarsal. Arterial calcifications. No [facility] [place] fracture, dislocation or osteochondral defect. IMPRESSION: Soft tissue swelling without acute osseous abnormality. ACT 112: Negative or not required by law. The above report was generated using voice recognition software. It may contain grammatical, syntax o r spelling errors. Electronically signed by: Peter Castillo M.D. 06/04/2023 4:53 PM
--- NOTE | 2023-06-04 16:56 | XRay Report ---
XR foot LT 2V CLINICAL HISTORY: Left foot swelling. Infection. COMPARISON: Left foot radiographs December 22, 2021. MRI of the left foot December 27, 2021. FINDINGS: Dorsal foot soft tissue swelling is present. There is no acute fracture within the left fo ot. No foci of bony erosion are identified. There is moderate mid foot osteoarthritis. A plantar calc aneal spur is noted. Mild osteophytes left first MTP joint. Evaluation of the toes is mildly compromi sed given chronic deformity. No soft tissue gas is evident. There is an old, healed left fourth metat arsal fracture. IMPRESSION: 1. No radiographic evidence for acute osteomyelitis within the left foot. No fractures. 2. Left foot soft tissue swelling. ACT 112: Negative or not required by law. Electronically signed by: Calvin Preciado M.D. 06/04/2023 4:54 PM
--- NOTE | 2023-06-04 17:24 | History & Physical Report ---
Date of Service June 04, 2023 Assessment & Plan (1) Toe infection: Plan: left second and third toes appear more swollen and erythematous than previous as per patient. No fevers, no leukocytosis and procalcitonin is negative X-rays of the foot and ankle with soft tissue swelling but no evidence of osteomyelitis With significant lymphedema and venous stasis contributing to predisposition to infection Given history of Pseudomonas, MRSA, will treat with daptomycin and levofloxacin Consult infectious disease Consult wound care Start clotrimazole to foot in between toes for suspected fungal infection with superimposed Follow CBC, CMP, CRP Monitor for fevers Follow blood cultures drawn in the ER (2) DALE (acute kidney injury): Plan: Likely due to recent addition of furosemide to his medication regimen Baseline creatinine 1.6-1.8 and follows with nephrology Creatinine 2.6 on admission Give 500 mL of normal saline at 80 MLS per hour Follow BMP in the morning Discontinue furosemide Check UA (3) Venous stasis dermatitis of both lower extremities: Plan: Chronic, wears compression wraps Consult wound care Continue steroid cream from home given by dermatology (4) Hypothyroidism: Plan: Check TSH Continue home levothyroxine (5) Current use of chcf anticoagulation: Plan: On Coumadin for both atrial fibrillation and history of DVT while on Xarelto in the past INR supratherapeutic at 3.4 today Hold Coumadin Follow INR in the morning (6) Sleep apnea: Plan: Severe and contributing to right-sided heart failure Patient has a CPAP at home but says he does not want or need to wear it (7) Thoracic aortic aneurysm: Plan: 4.3 cm as per last cardiology note, followed as outpatient Blood pressure controlled (8) Gout: Plan: No acute issues Continue allopurinol (9) Hypertension: Plan: Blood pressures are fairly well-controlled Continue home metoprolol Discontinuing home furosemide (10) Chronic atrial fibrillation: Plan: Rates are controlled here Continue home metoprolol Holding Coumadin for supratherapeutic INR No need to monitor on telemetry (11) Chronic kidney disease, stage III (moderate): Plan: With CKD stage III with baseline creatinine 1.8 as above (12) Right-sided heart failure: Plan: Declined CPAP Has acute kidney injury with diuretics in the past as he does today (13) (HFpEF) heart failure with preserved ejection fraction: Plan: Previously reduced EF 40% now improved as per last cardiology note Strict I's and O's, daily weights, low-sodium diet Hold home Lasix Blood pressure control Plan DVT prophylaxis-Coumadin Disposition-admit to medical/surgical unit Full code History of Present Illness Chief Complaint: Worsening left leg wounds Primary Care Provider: Clovis Heredia This patient is a 77-year-old male with history of HTN, HFpEF and right-sided heart failure, CKD stage III, gout, hypothyroidism, OA of the knees, atrial fibrillation on Coumadin, chronic venous stasis dermatitis and lymphedema, DVT while on Xarelto previously, severe DERREK (declines the use of CPAP) who presents to the ER with increasing swelling and redness of the left leg and second and third toes especially over the last 2 weeks with chronic left lower extremity wounds. He denies any fevers or chills. He denies any pain in the leg or foot. The redness in the left leg is not worse but it is slightly worse he thinks in the 2 toes. He was found to have an acute kidney injury but no other evidence of sepsis in the ER. He was given a dose of daptomycin and referred for admission. He denies any fevers or chills, no nausea or vomiting or headaches or lightheadedness. No chest pains or shortness of breath. He was started on furosemide last month-he thinks he was taking this "for redness." Allergies Allergy/AdvReac Type Severity Reaction Status Date / Time sulfamethoxazole Allergy Severe Hives, Verified 04/12/23 09:28 [From skin Sulfamethoxazole-Trimethoprim] sloughing trimethoprim Allergy Severe Hives, Verified 04/12/23 09:28 [From skin Sulfamethoxazole-Trimethoprim] sloughing hydrochlorothiazide Allergy Unknown "shut down Verified 04/12/23 09:28 kidneys" Home Medications Medication Instructions Recorded Confirmed Type metoprolol succinate 100 mg 100 mg PO HS ##0 08/07/16 06/04/23 History tablet,extended release 24 hr allopurinol 300 mg tablet 300 mg PO QAM 01/02/19 06/04/23 History rosuvastatin 5 mg tablet (Crestor) 5 mg PO QAM 11/21/21 06/04/23 History cholecalciferol (vitamin D3) 25 25 mcg PO QAM 11/22/21 06/04/23 History mcg (1,000 unit) tablet (Vitamin D3) acetaminophen 500 mg tablet 1,000 mg PO BID PRN foot pain 01/16/22 06/04/23 History levothyroxine 175 mcg tablet 175 mcg PO DAILY 02/14/22 06/04/23 History desoximetasone 0.25 % topical 1 applic topical DAILY #100 grams 04/12/23 06/04/23 Rx ointment warfarin 5 mg tablet See Rx Instructions PO UD #112 tabs 04/30/23 06/04/23 Rx furosemide 20 mg tablet 40 mg PO DAILY 06/04/23 06/04/23 History Past Med/Surg History Medical History (Updated 06/04/23 @ 18:59 by Sydnie Kam MD) Right-sided heart failure (HFpEF) heart failure with preserved ejection fraction Venous stasis ulcer Leukocytosis Sepsis History of basal cell carcinoma Gout Penile hypospadias BPH (benign prostatic hyperplasia) Renal cyst Hypertension Chronic atrial fibrillation Chronic kidney disease, stage III (moderate) Chronic ulcer of left foot On anticoagulant therapy Hearing deficit Sleep apnea cpap Prediabetes Obesity Atrial fibrillation, chronic Hypothyroidism Cellulitis of left anterior lower leg Surgical History History of esophagogastroduodenoscopy (EGD) Family History Other Hearing loss No family history of adverse response to anesthesia No family history of bleeding disorder Denies family history of Heart disease Allergies Cancer Hypertension Stroke Asthma Social History (Updated 06/04/23 @ 18:55 by Sydnie Kam MD) Smoking Status: Former smoker Tobacco Type: Cigarettes packs per day: 1; Second Hand Exposure: No; Do You Dip or Chew Tobacco: No; Hx Alcohol Use: Yes Alcohol type: hard liquor Alcohol Intake Frequency: 2-4 x/Month Alcohol Intake Frequency Comment: 1 bottle of champagne / week Hx Substance Use: No Preferred Language: Frisian Communication Ability: Effective Communication Ability Comment: [place], does not have h/a here Visual Impairment: Limited Hearing Ability: Hard of Hearing Installation And Service Technician Required: No Beliefs That Will Affect Care: None marital status: Current Living Situation: Spouse current occupational status: retired How many Children do You have: 1 How many Children do You have Comment: 3 local, pt independent with care. Feels Safe at Home: Yes Assistive Devices: CPAP Review of Systems Review of Systems: All systems reviewed & are unremarkable except as noted in HPI & below Physical Exam Constitutional: WD/WN, vitals as above + morbidly obese Eyes: + anicteric sclerae and EOM intact bilat erally Neck: trachea midline, no thyromegaly Respiratory: normal respiratory effort, lungs clear to auscultation Cardiovascular: Rate/Rhythm: regular rate and + irregularly irregular Heart Sounds: no murmur Extremities: + edema (3+ edema left leg, 1+ right leg); no calf tenderness Chest (Breasts): Chest: normal inspection of chest Gastrointestinal (Abdomen): normal bowel sounds, soft, nontender, no hepatosplenomegaly Musculoskeletal: Extremities: no cyanosis and no clubbing Skin: + lesion (Smell of yeast and white exuda te between toes), + ulcer (Thickened dry skin with cracks posterior distal leg), + dry skin and + erythema (Chronic javad erythema bilateral legs to the knees) Left second and third toes with more bright erythema and edema Neurologic: moves all extremities and awake; no focal motor deficits Psychiatric: A+Ox3, euthymic affect Results & Data Results & Data Vital Signs (Past 12 Hours) Vital Signs Temp Pulse Resp BP Pulse Ox O2 Del Method 06/04/23 14:54 74 06/04/23 14:30 37.2 C 115 H 20 162/84 H 94 Room Air Laboratory Results CBC, PT/INR, BMP, lactate, LFTs, procalcitonin all reviewed 06/04/23 06/04/23 Range/Units 15:49 14:36 WBC 8.60 (4.8-10.8) K/ul RBC 5.57 (4.70-6.10) M/uL Hgb 16.1 (14.0-18.0) g/dl Hct 49.6 (42.0-52.0) % MCV 89.0 (80.0-100.0) fL MCH 28.9 (25.0-34.0) pg MCHC 32.5 (32.0-36.0) g/dL RDW Std Deviation 55.9 H (36.4-46.3) fL RDW Coeff of [place] 17.6 H (11.5-14.5) % Plt Count 194 (130-400) K/uL MPV 11.8 (9.4-12.4) fL Immature Gran % (Auto) 0.5 % Neut % (Auto) 76.6 % Lymph % (Auto) 13.4 % [place] % (Auto) 5.2 % Eos % (Auto) 3.6 % Baso % (Auto) 0.7 % Neut # (Auto) 6.59 H (1.40-6.50) K/uL Lymph # (Auto) 1.15 L (1.20-3.40) K/uL [place] # (Auto) 0.45 (0.11-0.59) K/uL Eos # (Auto) 0.31 (0.00-0.50) K/uL Baso # (Auto) 0.06 (0.00-0.20) K/uL Immature Gran # (Auto) 0.04 (0.01-0.20) K/uL PT 34.9 H (9.0-12.0) Seconds INR 3.4 H (0.9-1.1) APTT 56 H (21-31) Seconds PTT Ratio 2.0 Sodium 134 L (136-145) mmol/L Potassium 4.3 (3.5-5.1) mmol/L Chloride 105 (98-107) mmol/L Carbon Dioxide 22 (21-32) mmol/L Anion Gap 7 (3-11) BUN 59 H (6-23) mg/dl Creatinine 2.60 H (0.6-1.4) mg/dl Est Cr Clr Drug Dosing 36.2 ml/min Est GFR ( Amer) 26.2 ml/min Est GFR (Non-Af Amer) 22.6 ml/min BUN/Creatinine Ratio 22.7 H (10-20) Glucose 86 (70-99(Fasting)) mg/dl Lactate 1.1 (0.4-2.0) mmol/L Calcium 8.6 (8.6-10.3) mg/dl Total Bilirubin 0.9 (0.2-1.0) mg/dl AST 23 (13-39) U/L ALT 16 (7-52) U/L Alkaline Phosphatase 98 (34-104) U/L Total Protein 7.5 (6.0-8.3) gm/dl Albumin 3.7 (3.4-5.0) gm/dl Globulin 3.8 (2.5-4.0) gm/dl Albumin/Globulin Ratio 1.0 (0.9-2) Procalcitonin 0.09 (0-0.5) ng/ml Diagnostic Findings Ankle X-Ray 06/04/23 15:23 XR ankle LT min 3V routine HISTORY: 77 years-old Male swelling infetion acute pain and swelling of the left foot and ankle with possible soft tissue infection COMPARISON: Foot radiographs of same day TECHNIQUE: 3 views of the left ankle FINDINGS: Moderate diffuse soft tissue swelling. Spurring of the calcaneus. [id number] osteoarthritis of the ankle. Healed chronic fracture deformity of the fourth metatarsal. Arterial calcifications. No acute fracture, dislocation or osteochondral defect. IMPRESSION: Soft tissue swelling without acute osseous abnormality. ACT 112: Negative or not required by law. The above report was generated using voice recognition software. It may contain grammatical, syntax or spelling errors. Electronically signed by: Peter Castillo M.D. 06/04/2023 4:53 PM Foot X-Ray 06/04/23 15:23 XR foot LT 2V CLINICAL HISTORY: Left foot swelling. Infection. COMPARISON: Left foot radiographs December 22, 2021. MRI of the left foot December 27, 2021. FINDINGS: Dorsal foot soft tissue swelling is present. There is no acute fracture within the left foot. No foci of bony erosion are identified. There is moderate mid foot osteoarthritis. A plantar calcaneal spur is noted. Mild osteophytes left first MTP joint. Evaluation of the toes is mildly compromised given chronic deformity. No soft tissue gas is evident. There is an old, healed left fourth metatarsal fracture. IMPRESSION: 1. No radiographic evidence for acute osteomyelitis within the left foot. No fractures. 2. Left foot soft tissue swelling. ACT 112: Negative or not required by law. Electronically signed by: Calvin Preciado M.D. 06/04/2023 4:54 PM ECG Additional Comments: ECG on 06/04/2023 at 1436 with atrial fibrillation, rate 74, right bundle branch block, no ischemic changes, unchanged from previous Code Status & VTE Plan Code Status Full code VTE Prophylaxis Plan VTE Prophylaxis will be ordered: Yes PG Care Time/CCT Total # of Minutes Spent Total Time Spent with Patient: Total time spent is greater than 50% in coordination of care (as documented) at patient's floor/unit and/or counseling patient: Coding Level of Care Code 92277 INT INP/OBS CARE 375MIN Diagnoses Toe infection L08.9 DALE (acute kidney injury) N17.9 Venous stasis dermatitis of both lower extremities I87.2 Hypothyroidism E03.9 Current use of chcf anticoagulation Z79.01 Sleep apnea G47.30 Thoracic aortic aneurysm I71.2 Gout M10.9 Hypertension I10 Chronic atrial fibrillation I48.2 Chronic kidney disease, stage III (moderate) N18.3 Right-sided heart failure I50.810 (HFpEF) heart failure with preserved ejection fraction I50.30
[2023-06-04] MEDS: DAPTOmycin 450 MG in SYRINGE 0 ML IV STA (17:36)
[2023-06-04] MEDS: SODIUM CHLORIDE 0.9% 500 ML IV SCH (18:50)
[2023-06-04 21:22] LABS: Appearance Urine Clear (Clear); Bacteria Urine Automated Negative (Negative); Bilirubin Urine Negative (Negative); Blood Urine 2+ (Negative); Color Urine Yellow; Epithelial Cell Urine Auto >30 /lpf (0-5); Glucose Urine UA Negative (Negative); Ketones Urine Negative (Negative); Leukocyte Esterase Urine Negative (Negative); Nitrite Urine Negative (Negative); Protein Urine 2+ (Negative); Specific Gravity Urine 1.014 (1.000-1.030); Urobilinogen Urine Negative (Negative)
[2023-06-04] MEDS ORDERED: ACETAMINOPHEN 500 MG TAB PO PRN (21:44)
[2023-06-04] MEDS: CLOTRIMAZOLE 1% CR 15 GM TUBE EXT SCH (23:39)
[2023-06-04] MEDS: METOPROLOL SUCC 50MG EXT REL TAB PO SCH (23:39)
[2023-06-04] MEDS: levoFLOXacin/D5W 750 MG/150 ML BAG IV SCH (23:41)
--- OUTSIDE RECORDS SUMMARY | 2023-06-05 03:10 | External Medical Summary | Continuity of Care Document ---
Author Name Unknown Organization [facility] [address] [facility] Address [address] [place], [place] [id number] Care Team Providers Care Utility Operator Yarn Name Role Phone Clovis Heredia Primary Care Physician [phone] [id number] Date(s): 05/22/23 - 05/22/23 [facility] [address], [address] [place] [address] [phone] Encounter Diagnosis Right heart failure(Discharge Diagnosis) - 05/22/23 Diastolic CHF(Discharge Diagnosis) - 05/22/23 Cough(Discharge Diagnosis) - 05/22/23 Discharge Disposition: Home or Self Care Attending Physician: DARIA Velez Sarah A Allergies, Adverse Reactions, Alerts Substance Reaction Severity Status trimethoprim Hives, skin sloughing Severe Active hydrochlorothiazide renal failure risk Ac tive Bactrim DS severe rash Severe Active sulfa drugs Rash Urticaria Severe Active Assessment and Plan Extracted from: Title:Cardiology Office Visit Note Author:DARIA Anglin rd, Sarah A Date:05/22/23 Impression: 1. Chronic atrial fibrillation (asymptomatic) with a right bundle branch block. 2. History of a cardiomyopathy with an ejection fraction as low as 40%, now with preserved EF of 65% without wma, mild to moderate LVH, Grade II diastolic dysfunction,LV septal flattening in systole and diastole, consistent with RV volume and pressure overload,ascending aorta is dilated, measuring 4.9 cm with an index of 1.7 3. Obesity. 4. Severe obstructive sleep apnea with profound hypoxemia and a sat less than 90%, 52% of the time. 5. Chronic kidney disease stage III with a history of acute renal failure on HCTZ. 6. Hypertension since the age of 60. 7. Dilated ascending aorta 4.3 cm. 8. History of a left lower extremity DVT. 9. Baseline creatinine of 2.0. Mr. Larsen's did write a message to note that Mr. Larsen is often not a very good historian with symptoms. He had a cough and was often sleeping in his recliner. Mr. Larsen's cough may have been from heart failure, he notes that it is improved now. His weight has not changed much from previous. His kidney function looks dry but is around his baseline. I will have him continue furosemide and recheck a bmp in a week. His potassium was marginally elevated but he's not eating anything that is high potassium and not on medications that should make him retain it. He was counseled on a low sodium diet. His does all of the cooking. Overall it's a little difficult to ascertain how Mr. Larsen is doing because he reports feeling fine now and feeling fine at his previous visit. He appears comfortable and not sob in the office today. He will return to the clinic in 6 months. Immunizations Given and Recorded Vaccine Date Status Refusal Reason SARS-CoV-2 (COVID-19) mRNA-1273 vaccine 03/06/21 R ecorded SARS-CoV-2 (COVID-19) mRNA-1273 vaccine 1 05/28/20 Recorded SARS-CoV-2 (COVID-19) mRNA-1273 vaccine 2 04/30/20 Recorded tetanus/diphtheria/pertuss, acel (Tdap) 3 12/29/19 Given tetanus/diphtheria/pertuss, acel (Tdap) 11/10/08 R ecorded pneumococcal 13-valent vaccine 09/11/14 Given pneumococcal 23-valent vaccine 12/26/11 Given zoster vaccine live 09/23/10 Recorded 1Result Comment: 2021-11-15: Historical information-source unspecified 2Result Comment: 2021-11-15: Historical information-source unspecified 3Early/Late Reason: Early/Late Reason: Other : on timej Medications allopurinol 300 mg oral tablet Start: 02/09/23 19:06:00 EST, 1 tab, PO, Daily, Disp# 90 tab, Refills: 3, [facility]acy: [id number] Start Date: 02/09/23 Status: Ordered desoximetasone 0.25% topical ointment APPLY TO AFFECTED AREA DAILY DIRECTED FOR FLARING Start Date: 05/18/23 Status: Ordered furosemide 20 mg oral tablet Start: 05/23/23 9:51:00 EST, 2 tab, PO, Daily, Disp# 60 tab, Refills: 3, Dose change, Note to Pharmacy: dose change, Pharmacy: [facility] #[id number] Start Date: 05/23/23 Status: Ordered levothyroxine 175 mcg (0.175 mg) oral tablet Start: 02/08/23 13:04:00 EST, See Instructions, Disp# 90 tab, Refills: 1, take 1 tablet by mouth once daily, Pharmacy: [facility] #[id number] Start Date: 02/08/23 Status: Ordered Metoprolol Succinate ER 100 mg oral tablet, extended release Start: 02/19/23 10:14:00 EST, See Instructions, Disp# 90 tab, Refills: 3, TAKE 1 TABLET BY MOUTH ATBEDTIME., Pharmacy: [facility] #[id number] Start Date: 02/19/23 Status: Ordered rosuvastatin 5 mg oral tablet Start: 11/16/22 8:53:00 EDT, 1 tab, PO, Daily, Disp# 90 tab, Refills: 3, Pharmacy: [facility] #[id number] Start Date: 11/16/22 Stop Date: 11/11/23 Status: Ordered Vitamin D3 1000 intl units (25 mcg) oral tablet Start: 11/29/21 8:40:00 EDT, 1 tab, PO, Daily, Disp# 100 tab, Refills: 10, Pharmacy: [facility] #[id number] Start Date: 11/29/21 Status: Ordered warfarin 5 mg oral tablet Start: 09/29/19 17:39:00 EDT, See Instructions, Disp# 150 tab, Refills: 3, Take 7.5 mg daily on 6 days per week and take 5 mg daily on TH only, Pharmacy: [id number] Start Date: 09/29/19 Status: Ordered Mental Status 05/22/23 Barriers to Learning one year None evide nt Mandatory Health Literacy Documentation Yes Health Literacy Communication Barriers N ever Primary Language Indonesian Problem List Condition Confirmation Course Effective Dates Status H ealth Status Informant ETOH abuse Confirmed Active Anticoagulated on Coumadin Confirmed Active Aortic root dilatation Confirmed Active Aortic sclerosis Confirmed Active Cardiomyopathy Confirmed Active Chronic kidney disease stage 3B (disorder) Confirmed Active Chronic ulcer of foot (disorder) Confirmed Active Cigar smoker Confirmed Active Edema of lower extremity Confirmed Active Essential (hemorrhagic) thrombocythemia Confirmed Active Family history of [place] (myocardial infarction) Confirmed Active Gout Confirmed Active HYPERTENSION Confirmed 08/24/05 Active HYPOSPADIAS Confirmed Active Hypothyroidism 1 Confirmed 01/24/06 Active Decreased exercise tolerance Confirmed Active Effusion of right knee Confirmed Active MDD (major depressive disorder) Confirmed Active MGUS (monoclonal gammopathy of unknown significance) Confirmed Active Morbid obesity 2 Confirmed Active DERREK on CPAP Confirmed Active Onychomycosis Confirmed Active Tinea unguium Confirmed Active Degenerative joint disease Confirmed Active Atrial fibrillation Confirmed Active Health care maintenance Confirmed Active Peripheral vascular disease Confirmed Active Right-sided heart failure Confirmed Active 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 Active Rotator cuff tear 3 Confirmed Active Venous stasis dermatitis Confirmed Active Tinea pedis Confirmed Active Tinea pedis of both feet Confirmed Active 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 3right Diagnosis Diagnosis Type Effective Dates Health Status Cl inical Service Informant Right heart failure Discharge Diagnosis 05/22/23 Non-Specified Diastolic CHF Discharge Diagnosis 05/22/23 Non-Specified Cough Discharge Diagnosis 05/22/23 Non-Specified Procedures Procedure Date Related Diagnosis Body Site Status MRI of left foot 1 12/22/21 Comple elysia Doppler ultrasonography of v enous structure of limb 2 12/05/21 Completed MRI of left foot 3 12/05/21 Comple elysia MRI of left foot 4 10/31/21 Comple elysia X-ray of left foot 5 10/31/21 Comp leted ENDOVEN THER CHEM ADHES 1ST 6 07/12/20 Completed LLE Venous doppler ultrasonography 7 03/31/20 Completed MRI of left foot without contrast 8 01/29/20 Completed Doppler ultrasound lower lef t extremity 9 01/27/20 Completed X-ray of left foot 10 01/27/[address] 11 09/23/[address] of chest without contrast 12 09/23/[address] of head without contrast 13 09/23/19 Completed Doppler ultrasonography of l eft lower extremity vein 14 09/23/19 Completed Plain X-ray of right shoulder 15 09/23/19 Completed Venous doppler ultrasonography 16 09/23/19 Completed X-ray of left ankle 17 09/23/19 Co mpleted X-ray of left foot 18 09/23/[address] of head 19 09/13/19 Completed Hand X-ray RT min 3V routine 20 08/07/19 Completed Duplex scan of lower limb ar teries (procedure) 10/25/18 Completed X-ray of right knee (procedure) 10/25/18 Completed Bacteria identification (procedure) 10/24/18 Completed Gram stain microscopy (procedure) 10/24/18 Completed 12 lead ECG (regime/therapy) 10/23/18 Completed X-ray of left ankle (procedure) 10/23/18 Completed X-ray of left foot (procedure) 10/23/18 Completed Computed tomography of abdom en and pelvis (procedure) 08/02/18 Completed Doppler ultrasonography of v ein of left lower limb 07/29/18 Completed Duplex scan of lower limb ar teries (procedure) 07/29/18 Completed X-ray of left foot (procedure) 07/29/18 Completed Ultrasonography of bilateral kidneys 07/11/18 Completed Colonoscopy 21, 22 07/03/18 Comple elysia X-ray of right knee (procedure) 06/19/18 Completed X-ray of right ankle 23 06/18/18 C ompleted X-ray of right knee 24 06/18/18 Co mpleted X-ray of right knee (procedure) 06/18/18 Completed X-ray of left ankle (procedure) 03/04/18 Completed X-ray of left foot (procedure) 03/04/18 Completed Echocardiogram 25 08/09/[address] 26 08/08/[address] angiogram of lower extremity 27 08/08/[address] angiogram of lower extremity 28 08/08/[address] of abdomen and pelvis 29 08/07/16 Completed Doppler ultrasonography (US) of artery of lower limb 30 08/07/16 Completed Doppler ultrasonography of v enous structure of limb 31 08/07/16 Completed Emergency department patient visit 32 08/07/16 Completed Echocardiogram 33 11/10/15 Complet ed EKG 02/15/15 Completed EKG 07/09/11 Completed Aorta duplex 07/04/11 Completed Chest x-ray 10/07/10 Completed AAA 04/12/10 Completed ECHO-- MAR 2010 34 04/07/10 Comple elysia COLONOSCOPY REFUSED Compl eted Echocardiogram 35 Complet ed 1IMPRESSION: 1. There is no MRI evidence of osteomyelitis. 2. Diffuse soft tissue edema suggests cellulitis. This is greatest dorsally. Clinical correlation will be required. 3. There is no evidence of organized fluid collection to indicate abscess. 4. Additional findings as above. 2Impression: no DVT within the left lower extremity. 3Impression: 1. Motion degraded exam 2. No acute fracture, dislocation or osseous erosion to suggest acute osteomyelitis. 3. Healed chronic fourth metatarsal fracture. 4. Nonspecific diffuse subcutanous edema with chronic denervation changes of the musculature. 5. 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 41. Limited examination as the patient refused additional imaging after only 2 sequences. 2. No definite MR evidence for osteomyelitis or acute osseous pathology. 3. Subcutaneous swelling along the dorsum of the foot. 5impression: 1. diffuse soft tissue swelling without acute osseous abnormality 2. Severe degeneration of the midfoot redemonstrated 3. Healed chronic fracture of the fourth metatarsal 6Left great saphenous cyanoacrylate adhesive (VenaSeal) endovenous ablation. Successful left GSV ablation with venaseal closure system. 7No sonographic evidence of deep venous thrombosis. 8Impression: 1. No evidence of osteomyelitis within the left forefoot. 2. Marked subcutaneous edema of the left forefoot suggestive of cellulitis. No fluid collection identified on this unenhanced exam to suggest abscess. 3. Severe osteoarthritis within multiple midfoot articulations. 9Impression: 1. Technically difficult exam given lower extremity edema and wounds. 2. No evidence for a hemodynamically signifcant stenosis within the left lower extremity. Biphasic and triphasic flow within the left lower extremity with the exception of monophasic flow with the left dorsalis pedis which respresents a new findings since ultrasound of October. 101. No acute fx or dislocation 2. Remote fracture deformity of the 3rd metatarsal 3. Moderate to marked diffuse soft tissue prominence 4. Degenerative changes as above 11No acute posttraumatic intrathoracic abdormality no airspace 121. There is no acute posttraumatic intrathoracic abnormality. 2. There is no airspace consolidation, pleural effusion, or pneumothorax. 3. Marked cardiomegaly. 4. There is aneyrysmal dilatation of the ascending thoracic aorta which measures up to 5.0 cm in diameter .This has only modestly increased from the 2017 examination. 5. The bony thorax appears intact. 13CT Head and Brain w/o contrast: No acute intracranial abnormality. 141. Chronic thrombophlebitis left popliteal vein. 2. No evidence for acute deep venous thrombosis. 15Soft tissue swelling with no acute bony abnormality identified. 16Chronic thrombophlembitis to left popliteal vein no evidence of DVT 171. Diffuse soft tissue edema with no fracture identified. 2. Osteopenia, large plantar heel spur, and degenerative changes. 181. No acute fracture or dislocation within the left foot. 2. Diffuse left foot and ankle soft tissue swelling. 3. Left midfoot osteoarthritis. 19No acute intracranial abnormality 20Impression: Moderate diffuse soft tissue swelling without acute fracture or dislocation. 21Repeat in 10 years. 22Pathology results: Colon, transverse, polypectomy: hyperplastic polyp 23impression 1. No acute fracture or dislocation 2. Moderate to extensive soft tissue swelling about the ankle with small joint effusion 3. Degenerative changes as above 24impression 1. No acute fracture or dislocation 2. Small to moderate joint effusion 3. Tricompartmental osteoarthritis, mild to moderate within the lateral patellofemoral compartments 25no significant changes when compared to 04/07/2010 study 26no vidence of thoracic aortic disseaction. Mild dilatation of the ascending thoracic aorta which measures 45 mm. No evidence of significant atheromatous plaque within the thoracic aorta 27left - soft tissue ulceration at the level of the first webspace No evidence of abscess. No CT evidence of acute osteomuelitis. Moderate degenerative arthritic changes present within the midfoot withextensive subchondral cyst formation 28Moderate arathritic changes within the forefoot with extensive subchondral cyst formation. soft tissue edema 29There is no evidence of aortic dissection or aneurysm. No vidence of significant aortic plaquing. No evidence of cliac, superior mesenteric or renal aratery stenosis 30no evidence of left extremity arterial stenosis from the groin to the major calf arteries. Focal offlusion of the dorsalis pedis artery 31left leg DVT involving the distal popliteal vein and one of the 2 posterior tibial veins 32c/o toe pain, injury 33CONCLUSIONS Technically difficult study due to patient body habitus; Successfully enhanced with Definity contrast per lab protocol for better endocardial definition. Mildly dilated left ventricle (by LV diastolic volume index). Severe hypokinesis of the mid-distal inferolateral, mid-distal lateral and anterior corcoran. Mildly reduced LV systolic function. Ejection fraction is 40% (by 2D bi-plane Cross's method). Mild concentric left ventricular hypertrophy. Probably Type 2 diastolic dysfunction. Indeterminate E/e' ratio (10). Dilated right ventricle with normal systolic function. TAPSE is normal. Severely dilated left atrium (by LA volume index). Severely dilated right atrium. Dilated aortic root (4.1 cm) and ascending aorta (4.9 cm). Mild aortic aortic regurgitation. Mild Pulmonary HTN. REFERRED TO [facility]: FRAGIN DO 34Normal LV Systolic function, Mild RV dilatation, Mild RV systolic function, Mild LA dilatation, Mild Aortic root dilatation, No significant valvular abnl. Aortic valve sclerosis mild, without sig AV stenosis. Done at [facility] by Dr. Polo. 35CONCLUSIONS Study enhanced with Definity contrast per lab protocol for better endocardial definition. Mildly dilated left ventricle (by LV diastolic volume index). Normal LV systolic function with no regional wall motion abnormalities. Ejection fraction 60%. Mild concentric left ventricular hypertrophy. Indeterminate E/e' ratio (10). Global strain is normal. Normal aortic root size for BSA (4.3 cm). Calcified aortic root. Mildly dilated ascending aorta for BSA (4.9 cm). No significant valvular abnormality. No prior transthoracic echocardiograms for comparison. Vital Signs Most recent to oldest [Reference Range]: 1 Patient Weight 142 kg (05/22/23 2:44 PM) Heart Rate 61 bpm (05/22/23 2:44 PM) Respiratory Rate 18 br/min (05/22/23 2:44 PM) Blood Pressure 122/72mmHg (05/22/23 2:44 PM) BP Location # 1 Left Arm (05/22/23 2:44 PM) Social History Social History Type Response Tobacco Current every day sm oker, Cigars, 1 per day. 20 year(s). Total pack years: 20. Ready to change: No. Smoking Status Former Smoker, quit > 1 yr Sex Male Cardiology Outpatient Note * DARIA Velez Sarah A: PERFORM Event Display: Cardiology Outpt Note Authored Date: [id number] Primary Care Provider MD Yan, Clovis Justice Chief Complaint follow up - edema left leg edema History of Present Illness Mr. Larsen presents for follow up of right and diastolic heart failure. After his echocardiogram demonstrated fluid overload he was started on furosemide. He reallyfeels no different butnotes that he did not feel particularly bad before. He is not short of breath. No edema. No abdominal distention. He does think his cough is improving. He mostly has it in the morning. Review of Systems All other systems reviewed and negative except as discussed in the HPI Physical Exam Vitals & Measurements HR:61(Monitored) RR:18 BP:122/72 SpO2:94% WT:142.000kg(Dosing) WT:142kg Physical Examination General: Alert and oriented, No acute distress. Neck: No jugular venous distention. Respiratory: Lungs are clear to auscultation, Respirations are non-labored. Cardiovascular:Irregular rhythm, No murmur, No edema. Integumentary: Warm, Dry, [place] Neurologic: Alert, Oriented. Cognition and Speech: Speech clear and coherent. Psychiatric: Cooperative, Appropriate mood & affect. Assessment/Plan Impression: 1. Chronic atrial fibrillation (asymptomatic) with a right bundle branch block. 2. History of a cardiomyopathy with an ejection fraction as low as 40%,now with preserved EF of 65% without wma, mild to moderate LVH, Grade II diastolic dysfunction,LV septal flattening in systole and diastole, consistent with RV volume and pressure overload,ascending aorta is dilated, measuring 4.9 cm with an index of 1.7 3. Obesity. 4. Severe obstructive sleep apnea with profound hypoxemia and a sat less than 90%, 52% of the time. 5. Chronic kidney disease stage III with a history of acute renal failure on HCTZ. 6. Hypertension since the age of 60. 7. Dilated ascending aorta 4.3 cm. 8. History of a left lower extremity DVT. 9. Baseline creatinine of 2.0. Mr. Larsen's did write a message to note that Mr. Larsen is often not a very good historian with symptoms. He had a cough and was often sleeping in his recliner. Mr. Larsen's cough may have beenfrom heart failure, he notes that it is improved now. His weight has not changed much from previous. His kidney function looks dry but is around his baseline. I will have him continue furosemide and recheck a bmp in a week. His potassium was marginally elevated but he's not eating anything that is high potassium and not on medications that should make him retain it. He was counseled on a low sodium diet. His does all of the cooking. Overall it's a little difficult to ascertain how Mr. Larsen is doing because he reports feeling fine now and feeling fine at his previous visit. He appears comfortable and not sob in the office today. He will return to the clinic in 6 months. Problem List/Past Medical History Ongoing Anticoagulated on Coumadin Aortic root dilatation Aortic sclerosis Atrial fibrillation Cardiomyopathy Chronic kidney disease stage 3B (disorder) Chronic ulcer of foot (disorder) Cigar smoker Decreased exercise tolerance Degenerative joint disease Edema of lower extremity Effusion of right knee Essential (hemorrhagic) thrombocythemia ETOH abuse Family history of [place] (myocardial infarction) Gout Health care maintenance HYPERTENSION HYPOSPADIAS Hypothyroidism MDD (major depressive disorder) MGUS (monoclonal gammopathy of unknown significance) Morbid obesity Onychomycosis DERREK on CPAP Peripheral vascular disease Right-sided heart failure ROSACEA Rotator cuff tear Tinea pedis Tinea pedis of both feet Tinea unguium Venous stasis dermatitis Historical Abdominal wall lump Acute retention of urine Ankle pain Cellulitis CELLULITIS Chronic kidney disease (CKD), stage III (moderate) Elevated blood protein Foot pain Hospital discharge follow-up Hyperkalemia Knee pain, left Knee pain, right Left leg cellulitis Left leg pain Localized swelling on right hand MRSA (methicillin resistant staph aureus) culture positive Peripheral vascular disease, unspecified Prediabetes Rash Type 2 diabetes mellitus with chronic kidney disease Weight disorder Procedure/Surgical History MRI of left foot (12/22/2021)MRI of left foot (12/05/2021)Doppler ultrasonography of venous structure of limb (12/05/2021)MRI of left foot (10/31/2021)X-ray of left foot (10/31/2021)ENDOVEN THER CHEM ADHES 1ST (07/12/2020)LLE Venous doppler ultrasonography (03/31/2020)MRI ofleft foot without contrast (01/29/2020)X-ray of left foot (01/27/2020)Doppler ultrasound lower left extremity (01/27/2020)Doppler ultrasonography of left lower extremity vein (09/23/2019)CT of head without contrast (09/23/2019)CT of chest without contrast (09/23/2019)X-ray of leftankle (09/23/2019)Plain X-ray of right shoulder (09/23/2019)X-ray of left foot (09/23/2019)Venous doppler ultrasonography (09/23/2019)Chest CT (09/23/2019)CT of head (09/13/2019)Hand X-ray RT min 3V routine (08/07/2019)X-ray of right knee (procedure) (10/25/2018)Duplex scan of lower limb arteries (procedure) (10/25/2018)Gram stain microscopy (procedure) (10/24/2018)Bacteria identification (procedure) (10/24/2018)X-ray of left foot (procedure) (10/23/2018)X-ray of left ankle (procedure) (10/23/2018)12 lead ECG (regime/therapy) (10/23/2018)Computed tomography of abdomen and pelvis (procedure) (08/02/2018)X-ray of left foot (procedure) (07/29/2018)Duplex scan of lower limb arteries (procedure) (07/29/2018)Doppler ultrasonography of vein of left lower limb (07/29/2018)Ultrasonography of bilateral kidneys (07/11/2018)Colonoscopy (07/03/2018)X-ray of right knee (procedure) (06/19/2018)X-ray of right ankle (06/18/2018)X-ray ofright knee (06/18/2018)X-ray of right knee (procedure) (06/18/2018)X-ray of left foot (procedure) (03/04/2018)X-ray of left ankle (procedure) (03/04/2018)Echocardiogram (08/09/2016)CT a ngiogram of lower extremity (08/08/2016)CT angiogram of lower extremity (08/08/2016)Chest CT (08/08/2016)Emergency department patient visit (08/07/2016)CT of abdomen and pelvis (08/07/2016)Doppler ultrasonography of venous structure of limb (08/07/2016)Doppler ultrasonography (US)of artery of lower limb (08/07/2016)Echocardiogram (11/10/2015)EKG (02/15/2015)EKG (07/09/2011)Aorta duplex (07/04/2011)Chest x-ray (10/07/2010)AAA (04/12/2010)ECHO-- MAR 2010 (04/07/2010)COLONOSCOPY REFUSEDEchocardiogram Medications allopurinol(allopurinol 300 mg oral tablet), 300 mg= 1 tab, PO, Daily, 3 refills cholecalciferol(Vitamin D3 1000 intl units (25 mcg) oral tablet), 25 mcg= 1 tab, PO, Daily, 10 refills desoximetasone topical(desoximetasone 0.25% topical ointment) furosemide(furosemide 20 mg oral tablet), 20 mg= 1 tab, PO, Daily, 3 refills levothyroxine(levothyroxine 175 mcg (0.175 mg) oral tablet), See Instructions, 1 refills metoprolol(Metoprolol Succinate ER 100 mg oral tablet, extended release), See Instructions, 3 refills rosuvastatin(rosuvastatin 5 mg oral tablet), 5 mg= 1 tab, PO, Daily, 3 refills warfarin(warfarin 5 mg oral tablet), See Instructions, 3 refills Allergies Bactrim DS(Severe)severe rash sulfa drugs(Severe)Rash, Urticaria trimethoprim(Severe)Hives, skin sloughing hydrochlorothiaziderenal failure risk Social History Smoking Status Former Smoker, quit > 1 yr Alcohol Use:Current Type:Beer, Liquor Frequency:1-2 times per week Average drinks per episode in last year:3 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 Highest education:Post graduate degree(s) Exercise Duration (average number of minutes):30 Times per week:1-2 times/week Exercise type:Walking Home/Environment Lives with:Spouse Living situation:Home/Independent Alcohol abuse in household:No Substance abuse in household:No Smoker in household:Yes Nutrition/Health Type of diet:Regular Sexual Sexually active:Yes Current partners:1 Substance Abuse - Denies Substance Abuse Tobacco Use:Current every day smoker Type:Cigars Tobacco use per day:1 Number of years:20 Total pack years:20 Ready to change:No Family History Alive and well: Brother, Brother, Daughter, Son and Son. Brain damage.: Son. Cancer: Mother. Heart attack: Father. Health Status Family Member(s) Family Member(s) Relationship: Mother, Age: 58 Years, Cause: [place] of BREAST Relationship: Father, Age: 75 Years, Cause: [place] at 74 Relationship: Brother, Name: [place], Age: 55 Years, Cause: [place]/ Obese Electronic Signature on File CC: Clovis Heredia MD [address] [address] Electronically Reviewed/Signed by: DARIA Coronel Author Signature Dt/Tm:05/22/2023 03:32 PM [facility] [place] [facility] Patient Care team information Care Team Personnel Name: DO Butler Franklin J Position: Physician - Family Med Member Role: Lifetime Relationship Address: Address: [address] [place] [address] [place] Name: MD Mandujano Kevin P Position: Provider - Terminated Member Role: Lifetime Relationship Address: Address: [address] [place] [address] [place] Name: MD Heredia Michael P Position: Physician - Family Med Member Role: Primary Care Provider Address: Address: [address] [place] [address] [place] Care Team Related Persons Name: ROSEMARIE LARSEN Address: [address], [place] [id number]
--- OUTSIDE RECORDS SUMMARY | 2023-06-05 03:11 | External Medical Summary | Continuity of Care Document ---
Author Name Unknown Organization [facility] [address] [facility] Address [address] [place], [place] [id number] Care Team Providers Care Home Health Lvn Name Role Phone Clovis Heredia Primary Care Physician [phone] Encounter [facility] [id number] Date(s): 05/09/23 - 05/09/23 [facility] [address], [address] [place] [address] [phone] Discharge Disposition: Home or Self Care Attending Physician: DARIA Velez Sarah A Referring Physician: DARIA Velez Sarah A Allergies, Adverse Reactions, Alerts Substance Reaction Severity Status trimethoprim Hives, skin sloughing Severe Active hydrochlorothiazide renal failure risk Ac tive Bactrim DS severe rash Severe Active sulfa drugs Rash Urticaria Severe Active Immunizations Given and Recorded Vaccine Date Status [...] Daily, Disp# 90 tab, Refills: 3, [facility]acy: [facility] #[id number] Start Date: 02/09/23 Status: Ordered levothyroxine 175 mcg (0.175 mg) oral tablet Start: 02/08/23 13:04:00 EST, See Instructions, Disp# 90 tab, Refills: 1, take 1 tablet by mouth once daily, [facility]acy: [facility] #[id number] Start Date: 02/08/23 Status: Ordered Metoprolol Succinate ER 100 mg oral tablet, extended release Start: 02/19/23 10:14:00 EST, See Instructions, Disp# 90 tab, Refills: 3, TAKE 1 TABLET BY MOUTH ATBEDTIME., [facility]acy: [facility] #[id number] Start Date: 02/19/23 Status: Ordered rosuvastatin 5 mg oral tablet Start: 11/16/22 8:53:00 EDT, 1 tab, PO, Daily, Disp# 90 tab, Refills: 3, Pharmacy: [facility] #[id number] Start Date: 11/16/22 Stop Date: 11/11/23 Status: Ordered Vitamin D3 1000 intl units (25 mcg) oral tablet Start: 11/29/21 8:40:00 EDT, 1 tab, PO, Daily, Disp# 100 tab, Refills: 10, Pharmacy: [facility] #[id number] Start Date: 11/29/21 Status: Ordered warfarin 5 mg oral tablet Start: 09/29/19 17:39:00 EDT, See Instructions, Disp# 150 tab, Refills: 3, Take 7.5 mg daily on 6 days per week and take 5 mg daily on only, Pharmacy: [id number] Start Date: 09/29/19 Status: Ordered Problem List Condition Confirmation Course Effective Dates [...] (hemorrhagic) thrombocythemia Confirmed Active Family history of [place] (myocardial infarction) Confirmed Active Gout Confirmed Active [...] 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 Done at [facility] by Dr. Polo. 35CONCLUSIONS Study enhanced [...] abnormality. No prior transthoracic echocardiograms for comparison. Results Radiology Reports * Exam Date Time Procedure Performing Provider Status 05/09/23 12:53 PM Echo TransTHORacic TTE Complete Rylee Weber; Final Notes: (Echo TransTHORacic TTE Complete) Reason For Exam: right heart failure Echo TransTHORacic TTE Complete Report Signatures Finalized by Dr. Kelvin Jennings MD on 05/09/2023 02:53 PM [place] Act 112: Yes - Discussed with patient Summary 1. Normal left ventricular size and systolic function with no regional wall motion abnormalities. 2. Ejection fraction as calculated by Biplane Simpsons method is 65%. 3. Mild to moderate concentric left ventricular hypertrophy. 4. Elevated left ventricular end-diastolic pressure. At least Grade II diastolic dysfunction of the left ventricle (pseudonormal filling pattern). MV deceleration time is 141 ms. 5. LV septal flattening in systole and diastole, consistent with RV volume and pressure overload. 6. Moderately dilated right ventricle with normal systolic function. 7. Severely dilated left atrium. 8. Markedly dilated right atrium. 9. 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 10. No significant valvular abnormalities. 11. Insufficient data for estimation of pulmonary artery systolic pressures. 12. Compared to the previous study performed 05/24/2021, there is no significant change. Patient Info Name: ANNAMARIE LARSEN Age: 77 years : 1945 Gender: Male Ht: 190 cm Wt: 147 kg BSA: 2.85 m2 BP: 152 / 74 mmHg Heart Rhythm: PVCs, Atrial Fibrillation Technical Quality: Good Exam Date: 05/09/2023 11:02 AM Exam Location: [facility] Patient Status: Outpatient Staff Ordering Physician: Caroline Velez Stripper Machine Operator: Rylee Hinojosa RDCS, RVT Attending Physician: Caroline Velez Study Info CPT 37734 - Indications I509 - Heart failure, unspecified Procedure(s) * A complete two-dimensional, color flow and Doppler transthoracic echocardiogram was performed. Exam Type: Cardiac Basic Left Ventricle Normal left ventricular size and systolic function with no regional wall motion abnormalities. Ejection fraction as calculated by Biplane Simpsons method is 65%. Mild to moderate concentric left ventricular hypertrophy. Elevated left ventricular end-diastolic pressure. At least Grade II diastolic dysfunction of the left ventricle (pseudonormal filling pattern). MV deceleration time is 141 ms. LV septal flattening in systole and diastole, consistent with RV volume and pressure overload. Right Ventricle Moderately dilated right ventricle with normal systolic function. TAPSE is normal, 2.7 cm. Left Atrium Severely dilated left atrium. Right Atrium Markedly dilated right atrium. Atrial Septum Cannot rule out small PFO. Aortic Valve Calcified, tricuspid aortic valve without stenosis. Mild aortic insufficiency. Pulmonic Valve Normal pulmonic valve. Mitral Valve Calcified mitral valve annulus without stenosis. Trace to mild mitral valve regurgitation. Tricuspid Valve Normal tricuspid valve. Unable to estimate pulmonary artery systolic pressure due to insufficient TR. Pericardium/Pleural No pericardial effusion. Inferior Vena Cava Dilated IVC with reduced (less than 50%) collapse. Estimated right atrial pressure is 15 mmHg. Aorta The aortic root at the sinus of Valsalva is normal size for BSA, measuring 4.1 cm with an index of 1.43 cm/m2. 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 The aorta arch is normal measuring 3.1 cm. Left Ventricular Outflow Tract Name Value Normal LVOT 2D LVOT Diameter 2.3 cm LVOT Doppler LVOT Peak Velocity 1.30 m/s LVOT Peak Gradient 8 mmHg LVOT Mean Gradient 3 mmHg LVOT VTI 25.62 cm LVOT Stroke Volume 109.17 ml LVOT Stroke Volume Index 0.04 l/m2 Pulmonic Valve Name Value Normal PV 2D RVOT Diameter (2D) 3.6 cm 1.7-2.7 RVOT Doppler RVOT Peak Velocity 0.60 m/s PV Doppler PV Peak Velocity 0.96 m/s Mitral Valve Name Value Normal MV Doppler MV Peak Velocity 1.38 m/s MV Peak Gradient 8 mmHg MV Mean Gradient 2 mmHg MV VTI 32.62 cm MV PHT 41 ms MV Area (Cont Eq VTI) 3.3 cm2 MV Area Index (Cont Eq VTI) 1.17 cm2/m2 MV Diastolic Function MV E Peak Velocity 1.52 m/s <=0.50 MV Decel Time 141 ms MV Annular TDI MV Septal s' Velocity 6.01 cm/s MV Septal e' Velocity 7.80 cm/s >=7.00 MV E/e' (Septal) 19.5 <=8.0 MV Lateral s' Velocity 10.55 cm/s MV Lateral e' Velocity 11.42 cm/s >=10.00 MV E/e' (Lateral) 13.28 <=8.00 MV e' Average 9.61 MV E/e' (Average) 16.37 <=14.00 Tricuspid Valve Name Value Normal Estimated PAP/RSVP RA Pressure 15 mmHg <=5 TV Annular TDI TV Lateral Eveline s' Velocity 19.7 cm/s 9.5-18.7 TV Lateral Eveline e' Velocity 23.2 cm/s <7.8 Aorta Name Value Normal Ascending Aorta Sinus of Valsalva Diameter 4.1 cm 3.1-3.7 Sinus of Valsalva Index 1.43 cm/m2 1.50-1.90 Prox Asc Ao Diameter 4.9 cm 2.6-3.4 Prox Asc Ao Diameter Index 1.73 cm/m2 1.30-1.70 Thoracic Aorta Ao Arch Diameter 3.1 cm Venous Name Value Normal IVC/SVC IVC Diameter (Insp 2D) 1.8 cm IVC Diameter (Exp 2D) 2.4 cm <=2.1 IVC Diameter Percent Change (2D) 26 % >=50 Aortic Valve Name Value Normal AV Doppler AV Peak Velocity 2.13 m/s <2.00 AV Peak Gradient 19 mmHg AV Area (Cont Eq Guerrero) 2.6 cm2 AV Area Index (Cont Eq Guerrero) 0.92 cm2/m2 AV V1/V2 Ratio 0.61 AV Regurgitation 2D LVOT Area 4.3 cm2 Ventricles Name Value Normal LV Dimensions 2D/MM IVS Diastolic Thickness (2D) 1.4 cm 0.6-1.0 LVID Diastole (2D) 5.2 cm 3.6-5.6 LVIW Diastolic Thickness (2D) 1.3 cm 0.6-1.0 LVID Systole (2D) 2.9 cm 2.5-4.0 LVOT Diameter 2.3 cm LV Mass (2D Cubed) 288.45 g 88.00-224.00 LV Mass Index (2D Cubed) 0.01 g/cm2 0.00-0.01 Relative Wall Thickness (2D) 0.51 LV Fractional Shortening/Ejection Fraction 2D/MM LV Diastolic Volume (4C MOD) 112 ml LV Diastolic Volume (2C MOD) 109 ml LV Diastolic Volume (BP MOD) 110 ml 62-150 LV Diastolic Volume Index (BP MOD) 38.62 ml/m2 34.00-74.00 LV Systolic Volume (BP MOD) 37 ml 21-61 LV Systolic Volume Index (BP MOD) 12.98 ml/m2 11.00-31.00 LV EF (BP MOD) 65 % 57-68 LV SV (BP MOD) 73.11 ml RV Dimensions 2D/MM RV Basal Diastolic Dimension 4.9 cm 2.5-4.1 TAPSE 2.7 cm >=1.7 Atria Name Value Normal LA Dimensions LA Area (4C) 35.8 cm2 LA Length (4C) 7.5 cm LA Area (2C) 40.8 cm2 LA Length (2C) 7.9 cm LA Volume (4C A-L) 145.34 ml LA Volume (2C A-L) 179.30 ml LA Volume (BP A-L) 166 ml 18-58 LA Volume Index (BP A-L) 58.11 ml/m2 <=34.00 RA Dimensions RA Area (4C) 40.1 cm2 <=18.0 Final Signed by:DO Jennings Jason D Signed (Electronic Signature):05/09/2023 11:02 Social History Social History Type Response Tobacco Current every day sm oker, Cigars, 1 per day. 20 year(s). Total pack years: 20. Ready to change: No. Smoking Status Former Smoker, quit > 1 yr Sex Male Patient Care team information Care Team Personnel Name: DO Butler Franklin J Position: Physician - Family Med Member Role: Lifetime Relationship Address: Address: [address] [place] [address] [place] Name: MD Delbert, Rico Justice Position: Provider - Terminated Member Role: Lifetime Relationship Address: Address: [address] [place] [address] [place] Name: MD Yan, Clovis P Position: Physician - Family Med Member Role: Primary Care Provider Address: Address: [address] [place] [address] [place] Care Team Related Persons Name: ROSEMARIE LARSEN Address: [address] [phone]
--- OUTSIDE RECORDS SUMMARY | 2023-06-05 03:11 | External Medical Summary | Continuity of Care Document ---
Author Name Unknown Organization [facility] [address] [facility] [address] Address [address] [place] [id number] Care Team Providers Care Office Machine Embossograph Operator Name Role Phone Clovis Heredia Primary Care Physician [phone] Encounter [facility] [id number] Date(s): 05/22/23 - 05/22/23 [facility] [address] [place] [facility] [address] [facility] [place], [phone] Encounter Diagnosis Localized edema(Final) - Discharge Disposition: Home or Self Care Attending [...] 90 tab, Refills: 3, Pharmacy: [facility] #[id number] Start Date: 02/09/23 Status: Ordered desoximetasone 0.25% topical ointment APPLY TO AFFECTED AREA DAILY DIRECTED FOR FLARING Start Date: 05/18/23 Status: Ordered furosemide 20 mg oral tablet Start: 05/23/23 9:51:00 EST, 2 tab, PO, Daily, Disp# 60 tab, Refills: 3, Dose change, Note to Pharmacy: dose change, Pharmacy: [facility] #[id number] Start Date: 05/23/23 Status: Ordered levothyroxine 175 mcg (0.175 mg) oral tablet Start: 02/08/23 13:04:00 EST, See Instructions, Disp# 90 tab, Refills: 1, take 1 tablet by mouth once daily, Pharmacy: [facility] #[id number] Start Date: 02/08/23 Status: Ordered Metoprolol Succinate ER 100 mg oral tablet, extended release Start: 02/19/23 10:14:00 EST, See Instructions, Disp# 90 tab, Refills: 3, TAKE 1 TABLET BY MOUTH ATBEDTIME., Pharmacy: [facility] #[id number] Start Date: 02/19/23 Status: Ordered rosuvastatin 5 mg oral tablet Start: 11/16/22 8:53:00 EDT, 1 tab, PO, Daily, Disp# 90 tab, Refills: 3, Pharmacy: [facility] #[id number] Start Date: 11/16/22 Stop Date: 11/11/23 Status: Ordered Vitamin D3 1000 intl units (25 mcg) oral tablet Start: 11/29/21 8:40:00 EDT, 1 tab, PO, Daily, Disp# 100 tab, Refills: 10, Pharmacy: [facility] #[id number] Start Date: 11/29/21 Status: Ordered warfarin 5 mg oral tablet Start: 09/29/19 17:39:00 EDT, See Instructions, Disp# 150 tab, Refills: 3, Take 7.5 mg daily on 6 days per week and take 5 mg daily on only, Pharmacy: [id number] Start Date: 09/29/19 Status: Ordered Problem [...] (hemorrhagic) thrombocythemia Confirmed Active Family history of [place] (myocardial infarction) Confirmed Active Gout Confirmed Active [...] 09/23/[address] of head 19 6/20/20 Completed Hand X-ray RT min 3V routine [...] aortic regurgitation. Mild Pulmonary HTN. REFERRED TO CARDIOLOGY: FRAGIN DO 34Normal LV Systolic function, Mild RV dilatation, Mild RV systolic function, Mild LA dilatation, Mild Aortic root dilatation, No significant valvular abnl. Aortic valve sclerosis mild, without sig AV stenosis. Done at [facility] by Dr. Polo. 35CONCLUSIONS Study enhanced with [...] No prior transthoracic echocardiograms for comparison. Results Laboratory List Name Date Basic Metabolic Panel (BASIC METAB PANEL ) 05/22/23 NT-Pro BNP 05/22/23 Most recent to oldest [Reference Range]: 1 eGFR CKD-EPI [>60 mL/min/1.73 m2] 38 mL/ min/1.73 m2 1 *LOW* (05/22/23 8:09 AM) BNP, NT-Pro [<450 pg/mL] 1486 pg/mL *HI* (05/22/23 8:09 AM) Estimated CrCl 49.60 mL/min (05/22/23 9:04 AM) Anion Gap [5-14 mmol/L] 7 mmol/L (05/22/23 8:09 AM) BUN [7-20 mg/dL] 40 mg/dL *HI* (05/22/23 8:09 AM) Ca [8.4-10.2 mg/dL] 9.3 mg/dL (05/22/23 8:09 AM) Cl- [96-107 mmol/L] 110 mmol/L *HI* (05/22/23 8:09 AM) HCO3 [22-30 mmol/L] 23 mmol/L (05/22/23 8:09 AM) Cret [0.70-1.30 mg/dL] 1.82 mg/dL *HI* (05/22/23 8:09 AM) Glu [74-106 mg/dL] 97 mg/dL (05/22/23 8:09 AM) K [3.5-5.1 mmol/L] 5.2 mmol/L *HI* (05/22/23 8:09 AM) Na [137-145 mmol/L] 140 mmol/L (05/22/23 8:09 AM) 1Result Comment: Testing Performed By: Dept of Pathology [facility] [address]y Miller, [address] [facility] [place] [address] Social History Social History Type Response Tobacco Current every day sm oker, Cigars, 1 per day. 20 year(s). Total pack years: 20. Ready to change: No. Smoking Status Former Smoker, quit > 1 yr Sex Male Patient Care team information Care Team Personnel Name: DO Butler Franklin J Position: Physician - Family Med Member Role: Lifetime Relationship Address: Address: [address] [place] [address] [place] Name: MD Mandujano Kevin P Position: Provider - Terminated Member Role: Lifetime Relationship Address: Address: [address] [place] [address] [place] Name: MD Heredia Michael P Position: Physician - Family Med Member Role: Primary Care Provider Address: Address: [address] [place] [address] [place] Care Team Related Persons Name: ROSEMARIE LARSEN Address: [address] [phone]
--- OUTSIDE RECORDS SUMMARY | 2023-06-05 03:11 | External Medical Summary | Continuity of Care Document ---
Author Name Unknown Organization [place] [id number] [address] [id number] Care Team Providers Care Payroll Bookkeeper Name Role Phone Clovis Heredia Primary Care Physician [phone] Encounter [facility] [id number] Date(s): 05/18/23 - 05/18/23 [facility] 0 [facility] 207 [facility] [address] [facility] 207 [place] [address] [phone] Encounter Diagnosis Chronic ulcer of foot (disorder)(Discharge Diagnosis) - 05/18/23 Discharge Disposition: Home or Self Care Attending Physician: MAYRA Grant Kimberly A Allergies, Adverse Reactions, Alerts Substance Reaction Severity Status trimethoprim Hives, skin sloughing Severe Active hydrochlorothiazide renal failure risk Ac tive Bactrim DS severe rash Severe Active sulfa drugs Rash Urticaria Severe Active Assessment and Plan Extracted from: Title:Office Visit Note Author:MAYRA Grant Kim berly A Date:05/18/23 1.Chronic ulcer of foot (d isorder) STATUS:Chronic stable. -Has dealt with left leg/foot ulceration for a number of years -Initially was managed under Wound Care but transferred care to dermatology - endorses that status of wound wax and wane in severity -History shows that the ulceration worsens quickly if not properly dressed -Does require dressing changes to avoid progression of wound -He is unable to do his own dressing changes due to the extent of dressing -His has been providing care including dressing changes but she will be out of state for the next few weeks -Requesting home health request for wound care while is out of the area -He is currently not able to drive so home health services should be available DATA:Labs reviewed. GOAL:Maintain stability. PLAN:Cont current monitoring. .Referral to HH/wound care Continue to follow with your established specialists Refrain from alcohol use as previously discussed Call with any new concerns or questions. Time spent on pre-visit plannin min Face to face time spent w/ patient:22 min Time spent documenting pertinent clinical information into the EMR:5 min Total time: 32 in Immunizations Given and Recorded Vaccine Date Status [...] Daily, Disp# 90 tab, Refills: 3, Pharmacy: [facility] #[id number] Start Date: 02/09/23 Status: Ordered desoximetasone 0.25% topical ointment APPLY TO AFFECTED AREA DAILY DIRECTED FOR FLARING Start Date: 05/18/23 Status: Ordered furosemide 20 mg oral tablet Start: 05/17/23 9:49:00 EST, 1 tab, PO, Daily, Disp# 30 tab, Refills: 3, [facility]acy: [facility] #[id number] Start Date: 05/17/23 Status: Ordered levothyroxine 175 mcg (0.175 mg) oral tablet Start: 02/08/23 13:04:00 EST, See Instructions, Disp# 90 tab, Refills: 1, take 1 tablet by mouth once daily, Pharmacy: [facility] #[id number] Start Date: 02/08/23 Status: Ordered Metoprolol Succinate ER 100 mg oral tablet, extended release Start: 02/19/23 10:14:00 EST, See Instructions, Disp# 90 tab, Refills: 3, TAKE 1 TABLET BY MOUTH ATBEDTIME., [facility]acy: [facility] #[id number] Start Date: 02/19/23 Status: Ordered rosuvastatin 5 mg oral tablet Start: 11/16/22 8:53:00 EDT, 1 tab, PO, Daily, Disp# 90 tab, Refills: 3, Pharmacy: [facility] #[id number] Start Date: 11/16/22 Stop Date: 11/11/23 Status: Ordered Vitamin D3 1000 intl units (25 mcg) oral tablet Start: 11/29/21 8:40:00 EDT, 1 tab, PO, Daily, Disp# 100 tab, Refills: 10, Pharmacy: [facility] #[id number] Start Date: 11/29/21 Status: Ordered warfarin 5 mg oral tablet Start: 09/29/19 17:39:00 EDT, See Instructions, Disp# 150 tab, Refills: 3, Take 7.5 mg daily on 6 days per week and take 5 mg daily on only, Pharmacy: [id number] Start Date: 09/29/19 Status: Ordered Mental Status 05/18/23 Barriers to Learning one year None evide nt Mandatory Health Literacy Documentation Yes Health Literacy Communication Barriers N ever Primary Language Khmer Problem List Condition Confirmation Course Effective Dates [...] (hemorrhagic) thrombocythemia Confirmed Active Family history of [place] (myocardial infarction) Confirmed Active Gout Confirmed Active [...] Dates Health Status Cl inical Service Informant Chronic ulcer of foot (disorder) Discharge Diagnosis 05/18/23 Procedures Procedure Date Related Diagnosis Body Site [...] mild, without sig AV stenosis. Done at [facility] by Dr. Polo. 35CONCLUSIONS Study enhanced [...] Most recent to oldest [Reference Range]: 1 Height 185.5 cm (05/18/23 7:36 AM) Patient Weight 142.1 kg (05/18/23 7:36 AM) Body Mass Index 41.3 kg/m2 (05/18/23 7:36 AM) Temperature [36.5-37.9 DegC] 37.0 DegC (05/18/23 7:36 AM) Heart Rate 80 bpm (05/18/23 7:36 AM) Respiratory Rate 18 br/min (05/18/23 7:36 AM) Blood Pressure 128/86mmHg (05/18/23 7:36 AM) Cuff Pulse Pressure 42 mmHg (05/18/23 7:36 AM) Social History Social History Type Response Tobacco Current every day sm oker, Cigars, 1 per day. 20 year(s). Total pack years: 20. Ready to change: No. Smoking Status Former Smoker, quit > 1 yr Sex Male FCM Outpt Note * MAYRA Grant, Flory Moore: PERFORM Event Display: FCM Outpt Note Authored Date: Chief Complaint Infectionn on L foot, wouldl like to obtain referral for home health nursing History of Present Illness Patient is a 77 yo male with PMH of CKD, chronic ulceration of left leg/foot and chronic alcohol use presenting to discuss ongoing wound care. Chronic lower leg ulceration: -Has dealt with left leg/foot ulceration for a number of years -Initially was managed under Wound Care but transferred care to dermatology - endorses that status of wound wax and wane in severity -History shows that the ulceration worsens quickly if not properly dressed -Does require dressing changes to avoid progression of wound -He is unable to do his own dressing changes due to the extent of dressing -His has been providing care including dressing changes but she will be out of state for the next few weeks -Requesting home health request for wound care while is out of the area -He is currently not able to drive so home health services should be available Review of Systems ROS per HPI Physical Exam Vitals & Measurements T:37.0C HR:80(Monitored) RR:18 BP:128/86 SpO2:97% HT:185.5cm WT:142.1kg WT:142.100kg(Dosing) BMI:41.3 PHQ2 Data(Data Documented on:05/18/2023 07:35) Emotional health assessment NEGATIVE Gen Appearance: Well developed, well nourishedNAD. A&O x 3. HEENT: NCAT. EOMI. Neck supple. No thyromegaly palpable. Lymph: No submandibular, posterior or anterior cervical adenopathy. CV: RRR. No murmurs, rubs, or gallops. Lungs: CTAB. No wheezing, rales or rhonchi. Chest rises symmetrically. Abdomen: Scaphoid. No rashes.NABS x 4. Soft. Non-tender. No CVA tenderness bilaterally.No masses palpable. Ext:Chronic lower extremity edemabilaterally. Left foot is wrapped withCobanin a postopshoe Skin: [place]. Supple. Good turgor. Assessment/Plan 1.Chronic ulcer of foot (disorder) STATUS:Chronic stable. -Has dealt with left leg/foot ulceration for a number of years -Initially was managed under Wound Care but transferred care to dermatology - endorses that status of wound wax and wane in severity -History shows that the ulceration worsens quickly if not properly dressed -Does require dressing changes to avoid progression of wound -He is unable to do his own dressing changes due to the extent of dressing -His has been providing care including dressing changes but she will be out of state for the next few weeks -Requesting home health request for wound care while is out of the area -He is currently not able to drive so home health services should be available DATA:Labs reviewed. GOAL:Maintain stability. PLAN:Cont current monitoring. .Referral to HH/wound care Continue to follow with your established specialists Refrain from alcohol use as previously discussed Call with any new concerns or questions. Time spent on pre-visit plannin min Face to face time spent w/ patient:22 min Time spent documenting pertinent clinical information into the EMR:5 min Total time: 32 in Problem List/Past Medical History Ongoing Anticoagulated on Coumadin Aortic root dilatation Aortic sclerosis Atrial fibrillation Cardiomyopathy Chronic kidney disease stage 3B (disorder) Chronic ulcer of foot (disorder) Cigar smoker Decreased exercise tolerance Degenerative joint disease Edema of lower extremity Effusion of right knee Essential (hemorrhagic) thrombocythemia ETOH abuse Family history of [place] (myocardial infarction) Gout Health care maintenance HYPERTENSION [...] BREAST Relationship: Father, Age: 75 Years, Cause: IL at 74 Relationship: Brother, Name: IL, Age: 55 Years, Cause: IL/ Obese Immunizations Vaccine Date Status SARS-CoV-2 (COVID-19) mRNA-1273 vaccine 03/06/2021 Recorded SARS-CoV-2 (COVID-19) mRNA-1273 vaccine 05/28/2020 Recorded Comments : 2021-11-15: Historical information-source unspecified SARS-CoV-2 (COVID-19) mRNA-1273 vaccine 04/30/2020 Recorded Comments : 2021-11-15: Historical information-source unspecified tetanus/diphtheria/pertuss, acel (Tdap) 12/29/2019 Given Comments : Early/Late Reason: Other : on timej pneumococcal 13-valent vaccine 09/11/2014 Given pneumococcal 23-valent vaccine 12/26/2011 Given zoster vaccine live 09/23/2010 Recorded tetanus/diphtheria/pertuss, acel (Tdap) 11/10/2008 Recorded Recommendations Health Maintenance Pending(in the next year) OverDue Adult Influenza Vaccine due09/22/22and every 1year Medicare Annual Wellness Visit due03/31/23and every 1year Due Adult COVID-19 Vaccination due05/18/23Unknown Frequency Adult Social Determinants of Health Screening due05/18/23Unknown Frequency Falls Plan of Care due05/18/23Unknown Frequency Shingles Vaccine due05/18/23One-time only Satisfied(in the past 1 year) Satisfied Body Mass Index on05/18/23.Satisfied by MELINDA Vora Stacey Diabetes Management A1c on06/27/22.Satisfied by Contributor_system, [place] [employer] Electronic Signature on File Electronically Reviewed/Signed by: Flory Grant PA-C Author Signature Dt/Tm:05/18/2023 10:07 AM Department of Family Medicine [facility] Patient Care team information Care Team Personnel Name: DO Butler Franklin J Position: Physician - Family Med Member Role: Lifetime Relationship Address: Address: [address] [place] [id number] [place] Name: MD Mandujano Kevin P Position: Provider - Terminated Member Role: Lifetime Relationship Address: Address: [address] [place] [id number] [place] Name: MD Yan, Clovis P Position: Physician - Family Med Member Role: Primary Care Provider Address: Address: [address] [place] [address] [address] [place] [address] [place] Care Team Related Persons Name: ROSEMARIE LARSEN Address: [address] [phone]
[2023-06-05] MEDS: LEVOTHYROXINE SODIUM 175 MCG TABLET PO SCH (06:14)
[2023-06-05] MEDS: FLUOCINONIDE 0.05% OINT 15 GM TUBE EXT SCH (08:47)
[2023-06-05] MEDS: CHOLECALCIFEROL 25 MCG (1000 UNITS) TAB PO SCH (08:47)
[2023-06-05] MEDS: allopurinoL 300 MG TAB PO SCH (08:47)
[2023-06-05 09:56] LABS: Basophils # (auto) 0.07 K/uL (0.00-0.20); Eosinophils # (auto) 0.39 K/uL (0.00-0.50); Eosinophils % (auto) 5.8 %; Hematocrit (blood only) 48.8 % (42.0-52.0); Hemoglobin 15.7 g/dl (14.0-18.0); Immature Granulocytes # (auto) 0.03 K/uL (0.01-0.20); Immature Granulocytes % (auto) 0.4 %; Lymphocytes # (auto) 0.89 K/uL (1.20-3.40); Lymphocytes % (auto) 13.1 %; Mean Corpuscular Hemoglobin 28.7 pg (25.0-34.0); Mean Corpuscular Hgb Conc 32.2 g/dL (32.0-36.0); Mean Corpuscular Volume 89.2 fL (80.0-100.0); Mean Platelet Volume 11.5 fL (9.4-12.4); Monocytes # (auto) 0.41 K/uL (0.11-0.59); Monocytes % (auto) 6.1 %; Neutrophils # (auto) 4.98 K/uL (1.40-6.50); Neutrophils % (auto) 73.6 %; Platelet Count 189 K/uL (130-400); RDW Coefficient of Variation 17.2 % (11.5-14.5); RDW Standard Deviation 55.2 fL (36.4-46.3); Red Blood Count 5.47 M/uL (4.70-6.10); White Blood Count 6.77 K/ul (4.8-10.8)
[2023-06-05 10:25] LABS: INR 3.4 (0.9-1.1); Prothrombin Time 34.4 Seconds (9.0-12.0)
[2023-06-05 10:32] LABS: BUN Creatinine Ratio 22.8 (10-20); C Reactive Protein 2.34 mg/dl (0-0.5); Calcium 8.6 mg/dl (8.6-10.3); Creatinine Clr Calc Pharmacy 37.5 ml/min; Est GFR (African American) 27.5 ml/min; Est GFR (Non-African American) 23.7 ml/min; Potassium 5.2 mmol/L (3.5-5.1)
[2023-06-05] MEDS: SODIUM ZIRCONIUM CYCLOSILICATE 10 GM PACKET PO ONE (12:51)
[2023-06-05] MEDS: SODIUM BICARBONATE 650 MG TAB PO SCH (12:51)
--- NOTE | 2023-06-05 12:56 | Hospitalist Progress Note ---
Date of Service June 05, 2023 Assessment & Plan (1) Toe infection: Plan: left second and third toes appear more swollen and erythematous than previous as per patient in addition to chronic erythema from severe venous stasis. No fevers, no leukocytosis and procalcitonin is negative X-rays of the foot and ankle with soft tissue swelling but no evidence of osteomyelitis With significant lymphedema and venous stasis contributing to predisposition to infection Given history of Pseudomonas, MRSA, will treat with daptomycin and levofloxacin Consult infectious disease-appreciated--> plan for MRI foot if develops open wounds. Otherwise continue same abx w/ Levaquin and Dapto and and convert to po abx on discharge -checked arterial Doppler-diffuse disease left leg but no sig stenosis or occlusion Consult wound care appreciated-add Lac Hydrin for thickened skin Started clotrimazole to foot in between toes for suspected fungal infection with superimposed Follow CBC, CMP, CRP Monitor for fevers Follow blood cultures-NGTD (2) DALE (acute kidney injury): Plan: Likely due to recent addition of furosemide to his medication regimen in setting of right sided heart failure Intravascularly volume depleted despite massive volume overload Baseline creatinine 1.6-1.8 and follows with nephrology Creatinine 2.6 on admission and remains stable there. 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: Plan: On Coumadin for both atrial fibrillation and history of DVT while on Xarelto in the past INR supratherapeutic at 3.4 today again continue to hold Coumadin Follow INR in the morning (7) Sleep apnea: Plan: Severe and contributing to right-sided heart failure Patient has a CPAP at home but says he does not want or need to wear it (8) Thoracic aortic aneurysm: Plan: 4.3 cm as per last cardiology note, followed as outpatient Blood pressure controlled (9) Gout: Plan: No acute issues Continue allopurinol but renally dose down to 100mg daily (10) Hypertension: Plan: Blood pressures are fairly well-controlled Continue home metoprolol Discontinued home furosemide (11) Chronic atrial fibrillation: Plan: Rates are controlled here Continue home metoprolol Holding Coumadin for supratherapeutic INR No need to monitor on telemetry (12) Chronic kidney disease, stage III (moderate): Plan: With CKD stage III with baseline creatinine 1.8 as above (13) Right-sided heart failure: Plan: Declined CPAP Has acute kidney injury with diuretics in the past as he does today (14) (HFpEF) heart failure with preserved ejection fraction: Plan: Previously reduced EF 40% now improved as per last cardiology note Strict I's and O's, daily weights, low-sodium diet Hold home Lasix Blood pressure control Plan DVT prophylaxis-Coumadin Disposition-continued stay medical/surgical unit Full code Admission and Anticipated Discharge Date Admission Date: June 04, 2023 Subjective Pt reports no new issues. No pain in foot. No fevers/chills, no CP, SOB. Had one loose stool I discussed his care with ID Physical Exam Constitutional: WD/WN, vitals as above + morbidly obese Eyes: + anicteric sclerae Neck: trachea midline, no thyromegaly Respiratory: normal respiratory effort, lungs clear to auscultation Cardiovascular: Rate/Rhythm: regular rate and + irregularly irregular Heart Sounds: no murmur Extremities: + edema (3+ edema left leg, 1+ right leg); no calf tenderness Chest (Breasts): Chest: normal inspection of chest Gastrointestinal (Abdomen): normal bowel sounds, soft, nontender, no hepatosplenomegaly Musculoskeletal: Extremities: no cyanosis and no clubbing Skin: + lesion (Smell of yeast and white exuda te between toes), + ulcer (Thickened dry skin with cracks posterior distal leg), + dry skin and + erythema (Chronic javad erythema bilateral legs to the knees) left 2nd and 3rd toes appear slightly less erythematous and edematous than previous Neurologic: moves all extremities and awake; no focal motor deficits Psychiatric: A+Ox3, euthymic affect Results & Data Results & Data Vital Signs (Past 12 Hours) Vital Signs Temp Pulse Resp BP Pulse Ox O2 Del Method 06/05/23 09:36 Room Air 06/05/23 07:17 36.4 C L 69 16 134/76 94 Room Air Laboratory Results CBC, BMP, INR, CK, CRP reviewed Diagnostic Findings Duplex Scan Lower Extremity Artery 06/05/23 15:02 US arterial duplex LE LT CLINICAL HISTORY: poor wound healing left foot COMPARISON STUDY: None. FINDINGS: Ankle-brachial indices were unable to be performed. The patient was unable to tolerate compressions. The posterior tibial artery appears noncompressible. Normal triphasic waveforms and velocities seen within the left common femoral, superficial femoral, popliteal arteries. Monophasic normal velocity waveforms seen within the left posterior tibial, anterior tibial, peroneal, and dorsalis pedis arteries. Calcified plaque throughout the left lower extremity arterial system. IMPRESSION: 1. No significant stenosis or occlusion within the left lower extremity arterial system. 2. Monophasic waveforms within the left calf arteries suggestive of diffuse atherosclerotic disease. PG Care Time/CCT Total # of Minutes Spent Total Time Spent with Patient: Total time spent is greater than 50% in coordination of care (as documented) at patient's floor/unit and/or counseling patient: Coding Level of Care Code 92283 SUB INP/OBS CARE 2/35MIN Diagnoses Toe infection L08.9 DALE (acute kidney injury) N17.9 Hyperkalemia E87.5 Venous stasis dermatitis of both lower extremities I87.2 Hypothyroidism E03.9 Current use of termite inspector anticoagulation Z79.01 Sleep apnea G47.30 Thoracic aortic aneurysm I71.2 Gout M10.9 Hypertension I10 Chronic atrial fibrillation I48.2 Chronic kidney disease, stage III (moderate) N18.3 Right-sided heart failure I50.810 (HFpEF) heart failure with preserved ejection fraction I50.30
[2023-06-05] MEDS: DAPTOmycin 450 MG in SYRINGE 0 ML IV SCH (15:23)
--- NOTE | 2023-06-05 16:05 | Infectious Disease Consult ---
Date of Consultation June 05, 2023 Assessment & Plan (1) Diabetic foot infection: (2) Cellulitis of left foot: (3) Chronic venous insufficiency: Plan 77yo M with h/o HFpEF and right sided HF, CKD III, gout, hypothyroidism, OA of knees, afib on coumadin, chronic venous stasis, dermatitis and lymphedema, DVT, severe DERREK, recurrent cellulitis of L leg (prior tx with dapto/ceftazidime 11/2021, then dapto/meropenem 12/2021 but abx stopped as derm felt it was stasis dermatitis and leg appearance unchanged from prior visits) who presented on 06/03 with increasing swelling and redness of the left leg and second and third toes, especially over the last 2 weeks with chronic LLE wounds. Redness in the left leg is not worse but did think it was worse in the 2 toes. He was afebrile, vss. WBC wnl. Cr 2.60, LFT wnl. PCT 0.09. CRP 2.34. UA neg. XR L ankle with soft tissue swelling. XR L foot neg for OM, noted soft tissue swelling. He has been receiving daptomycin and levofloxacin. ID consulted 06/04 for assistance. His left foot toes do appear to be more red. I do not see any open lesions and XR is negative for OM. He also notes that the redness is improving on current regimen. We can continue on current treatment given h/o Pseudomonas and MRSA. If he lacks improvement, or has any open lesions (if this was noted by wound care), then would consider MRI of foot to r/o underlying OM. I did not visualize any open or deep wounds on my exam. If he continues to improve, we can change abx to doxycycline and levofloxacin to complete a course of 5-7 days (can be extended if slow improvement). Micro: 12/2021 R leg cx: MRSA (S-tetracycline), PsA (R- cefepime, zosyn, ceftazidime, S-FQ), Alcaligenes faecalis 06/03 BCX: pending # Cellulitis of left toes # DALE on CKD III # Chronic venous stasis - follow up on blood cx from 06/03 - continue on daptomycin and levofloxacin (renally dosed due to DALE) - if no improvement, worsening, or open wounds, then consider obtaining an MRI of his foot to r/o underlying OM ID will continue to follow. If questions or concerns, contact Infectious Disease Call Center . Teresa Larios MD [facility], Division of Infectious Diseases [facility]: [phone] Consultation Information Consultation was provided via telemedicine using two-way real-time interactive telecommunication between the patient and the telemedicine provider. For the duration of the visit, the provider was performing the assessment from a different facility than the patient. This includesuse of bluetooth stethoscope forauscultationperformed by the telepresenter that the telemedicine provider can hear if described in the physical exam. [place] contact information: Please call [facility] Call Center [phone]. (Phone Number For Physician Use Only) After establishing a telemedicine visit, patient was: Patient was verified with two unique identifiers, Patient/authorized rep acknowledged consent and understanding and Gave permission to continue telehealth session Time Spent with Patient: Initial => 75 min History of Present Illness Reason for Consultation: left foot/toe infection Attending Physician: Sydnie Kam MD History of Present Illness 77yo M with h/o HFpEF and right sided HF, CKD III, gout, hypothyroidism, OA of knees, afib on coumadin, chronic venous stasis, dermatitis and lymphedema, DVT, severe DERREK, recurrent cellulitis of L leg (prior tx with dapto/ceftazidime 11/2021, then dapto/meropenem 12/2021 but abx stopped as derm felt it was stasis dermatitis and leg appearance unchanged from prior visits) who presented on 06/03 with increasing swelling and redness of the left leg and second and third toes, especially over the last 2 weeks with chronic LLE wounds. He denied any chills, fevers, pain in leg or foot. Redness in the left leg is not worse but did think it was worse in the 2 toes. No n/v, headache, lightheadedness, chest pain, sob. He was afebrile, vss. WBC wnl. Cr 2.60, LFT wnl. PCT 0.09. UA neg. XR L ankle with soft tissue swelling. XR L foot neg for OM, noted soft tissue swelling. He has been receiving daptomycin and levofloxacin. ID consulted 06/04 for assistance. On evaluation, patient reports that he had a lesion on the bottom of his foot and that is where it started. He developed increasing redness in his toes. He doesnt feel its painful, but has some pain when he gets wound care. He is a mbulating. No fevers, chest pain, sob, vomiting, diarrhea. Allergies Allergy/AdvReac Type Severity Reaction Status Date / Time sulfamethoxazole Allergy Severe Hives, Verified 04/12/23 09:28 [From skin Sulfamethoxazole-Trimethoprim] sloughing trimethoprim Allergy Severe Hives, Verified 04/12/23 09:28 [From skin Sulfamethoxazole-Trimethoprim] sloughing hydrochlorothiazide Allergy Unknown "shut down Verified 04/12/23 09:28 kidneys" Home Medications Medication Instructions Recorded Confirmed Type metoprolol succinate 100 mg 100 mg PO HS ##0 08/07/16 06/04/23 History tablet,extended release 24 hr allopurinol 300 mg tablet 300 mg PO QAM 01/02/19 06/04/23 History rosuvastatin 5 mg tablet (Crestor) 5 mg PO QAM 11/21/21 06/04/23 History cholecalciferol (vitamin D3) 25 25 mcg PO QAM 11/22/21 06/04/23 History mcg (1,000 unit) tablet (Vitamin D3) acetaminophen 500 mg tablet 1,000 mg PO BID PRN foot pain 01/16/22 06/04/23 History levothyroxine 175 mcg tablet 175 mcg PO DAILY 02/14/22 06/04/23 History desoximetasone 0.25 % topical 1 applic topical DAILY #100 grams 04/12/23 06/04/23 Rx ointment warfarin 5 mg tablet See Rx Instructions PO UD #112 tabs 04/30/23 06/04/23 Rx furosemide 20 mg tablet 40 mg PO DAILY 06/04/23 06/04/23 History Patient History Medical History (Updated 06/05/23 @ 12:56 by Sydnie Kam MD) Right-sided heart failure (HFpEF) heart failure with preserved ejection fraction Venous stasis ulcer Leukocytosis Sepsis History of basal cell carcinoma Gout Penile hypospadias BPH (benign prostatic hyperplasia) Renal cyst Hypertension Chronic atrial fibrillation Chronic kidney disease, stage III (moderate) Chronic ulcer of left foot On anticoagulant therapy Hearing deficit Sleep apnea cpap Prediabetes Obesity Atrial fibrillation, chronic Hypothyroidism Cellulitis of left anterior lower leg Surgical History History of esophagogastroduodenoscopy (EGD) Family History Other Hearing loss No family history of adverse response to anesthesia No family history of bleeding disorder Denies family history of Heart disease Allergies Cancer Hypertension Stroke Asthma Social History (Updated 06/04/23 @ 18:55 by Sydnie Kam MD) Smoking Status: Former smoker Tobacco Type: Cigarettes packs per day: 1; Second Hand Exposure: No; Do You Dip or Chew Tobacco: No; Hx Alcohol Use: Yes Alcohol type: hard liquor Alcohol Intake Frequency: 2-4 x/Month Alcohol Intake Frequency Comment: 1 bottle of champagne / week Hx Substance Use: No Preferred Language: Luxembourgish Communication Ability: Effective Communication Ability Comment: [place], does not have h/a here Visual Impairment: Limited Hearing Ability: Hard of Hearing Financial Institution Vice President Required: No Beliefs That Will Affect Care: None marital status: Current Living Situation: Family Current Living Situation Comment: lives in [address] with and son current occupational status: retired How many Children do You have: 1 How many Children do You have Comment: 3 local, pt independent with care. Other Information That Helps Us Care for You: No Feels Safe at Home: Yes Safety Concerns: Feels Safe At This Time Assistive Devices: Cane and Walker Review of System 10-point review of systems reviewed and are negative except for as above. Physical Exam Physical Exam: General: Awake, alert, no acute distress HEENT: NC/AT, EOMI, mmm Neck: supple Lungs: respirations non-labored Heart: nl peripheral perfusion Abdomen: soft, NT/ND Ext: bl lower extremity edema, left foot with redness involving the first 3 toes extending down to midfoot, no open lesions Skin: no rash Neuro: 5/5 strength throughout, nl sensation, O x 3 Results & Data Vital Signs (Past 12 Hours) Vital Signs Temp Pulse Resp BP Pulse Ox O2 Del Method 06/05/23 14:44 36.5 C 68 16 105/63 95 Room Air 06/05/23 09:36 Room Air 06/05/23 07:17 36.4 C L 69 16 134/76 94 Room Air Laboratory Results Labs reviewed Diagnostic Findings Imaging reviewd
--- NOTE | 2023-06-05 17:31 | Nephrology Consultation ---
Date of Consultation June 05, 2023 Assessment & Plan (1) DALE (acute kidney injury): * Challenging physical exam due to R heart failure. Suspect intravascular volume contraction * Hold diuretic * Provide cautious hydration * Monitor PRP, UO * Will order FeNa * Consider renal US if patient fails to respond to gentle hydration (2) Chronic kidney disease, stage III (moderate): * CKD stage G3b/A3 (moderate impairment). Baseline Cr 1.7-1.9 w/ EGFR 34 cc/min. Benign urine sediment. UPCR 1.0. 8/ renal US was negative for mass or obstruction. CKD is due to microvascular disease. (3) Cellulitis of left foot: * Daptomycin as per ID commercial sales consultant * Monitor weekly CPK level (4) Sleep apnea: * Encourage compliance w/ CPAP (5) Venous stasis dermatitis of both lower extremities: History of Present Illness Reason for Consultation: DALE/CKD Attending Physician: Sydnie Kam MD History of Present Illness Donald Rachel is a 77 year old white male who is seen at the request of the [facility] Hospitalist Service for evaluation of DALE/CKD. Information for the HPI is obtained from direct patient interview and review of the EMR. 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 He has CKD stage G3b/A3 (moderate impairment). His baseline Cr has been 1.7-1.9 w/ EGFR 34 cc/min. Outpatient evaluation has revealed a benign urine sediment. UPCR 1.0. 8/22 renal US was negative for mas s or obstruction. CKD has been attributed to microvascular disease. Dr. Rachel has severe DERREK and R heart failure. He suffers from chronic LE edema. He was admitted to [facility] 06/03 with cellulitis of the LLE. ID has advised Daptomycin therapy. Creatinine was noted to have risen to 2.6. Diuretic has been held as patient appears clinically volume contracted. PMH: gout (07/12 suffered gout attack, was immobilized on floor x2 days, developed rhabdomyolysis and DALE), HTN, hypothyroidism, LVH w/ dilated aortic root, OA of the knees, severe DERREK w/ R heart failure, chronic LE edema and atrial fibrillation. He is on chronic antiarrhythmic and anticoagulation therapy. Allergies Allergy/AdvReac Type Severity Reaction Status Date / Time sulfamethoxazole Allergy Severe Hives, Verified 04/12/23 09:28 [From skin Sulfamethoxazole-Trimethoprim] sloughing trimethoprim Allergy Severe Hives, Verified 04/12/23 09:28 [From skin Sulfamethoxazole-Trimethoprim] sloughing hydrochlorothiazide Allergy Unknown "shut down Verified 04/12/23 09:28 kidneys" Home Medications Medication Instructions Recorded Confirmed Type metoprolol succinate 100 mg 100 mg PO HS ##0 08/07/16 06/04/23 History tablet,extended release 24 hr allopurinol 300 mg tablet 300 mg PO QAM 01/02/19 06/04/23 History rosuvastatin 5 mg tablet (Crestor) 5 mg PO QAM 11/21/21 06/04/23 History cholecalciferol (vitamin D3) 25 25 mcg PO QAM 11/22/21 06/04/23 History mcg (1,000 unit) tablet (Vitamin D3) acetaminophen 500 mg tablet 1,000 mg PO BID PRN foot pain 01/16/22 06/04/23 History levothyroxine 175 mcg tablet 175 mcg PO DAILY 02/14/22 06/04/23 History desoximetasone 0.25 % topical 1 applic topical DAILY #100 grams 04/12/23 06/04/23 Rx ointment warfarin 5 mg tablet See Rx Instructions PO UD #112 tabs 04/30/23 06/04/23 Rx furosemide 20 mg tablet 40 mg PO DAILY 06/04/23 06/04/23 History Patient History Medical History Right-sided heart failure (HFpEF) heart failure with preserved ejection fraction Venous stasis ulcer Leukocytosis Sepsis History of basal cell carcinoma Gout Penile hypospadias BPH (benign prostatic hyperplasia) Renal cyst Hypertension Chronic atrial fibrillation Chronic kidney disease, stage III (moderate) Chronic ulcer of left foot On anticoagulant therapy Hearing deficit Sleep apnea cpap Prediabetes Obesity Atrial fibrillation, chronic Hypothyroidism Cellulitis of left anterior lower leg Surgical History History of esophagogastroduodenoscopy (EGD) Family History Other Hearing loss No family history of adverse response to anesthesia No family history of bleeding disorder Denies family history of Heart disease Allergies Cancer Hypertension Stroke Asthma Social History Smoking Status: Former smoker Tobacco Type: Cigarettes packs per day: 1; Second Hand Exposure: No; Do You Dip or Chew Tobacco: No; Hx Alcohol Use: Yes Alcohol type: hard liquor Alcohol Intake Frequency: 2-4 x/Month Alcohol Intake Frequency Comment: 1 bottle of champagne / week Hx Substance Use: No Preferred Language: [place] Communication Ability: Effective Communication Ability Comment: [place], does not have h/a here Visual Impairment: Limited Hearing Ability: Hard of Hearing Occupational Health Physiotherapist Required: No Beliefs That Will Affect Care: None marital status: Current Living Situation: Family Current Living Situation Comment: lives in 3 story home with and son current occupational status: retired How many Children do You have: 1 How many Children do You have Comment: 3 local, pt independent with care. Other Information That Helps Us Care for You: No Feels Safe at Home: Yes Safety Concerns: Feels Safe At This Time Assistive Devices: Cane and Walker Review of Systems Constitutional: no fever Eyes: no worsening vision Ear, Nose, Mouth, Throat: no problem reported Respiratory: no cough and no dyspnea Cardiovascular: no chest pain Gastrointestinal: no abdominal pain, no nausea, no vomiting and no diarrhea/loose stools Genitourinary: no dysuria or no hematuria Physical Exam Constitutional: no acute distress Eyes: PERRL, conjunctivae normal, anicteric sclerae ENMT: external ear and nose normal, oropharynx normal Neck: trachea midline, no thyromegaly Respiratory: normal respiratory effort, lungs clear to auscultation Cardiovascular: Rate/Rhythm: + irregularly irregular Gastrointestinal (Abdomen): normal bowel sounds, soft, nontender, no hepatosplenomegaly Skin: cellulitis LLE Neurologic: Speech / Cognition: normal speech and normal cognition Psychiatric: Affect: euthymic affect Results & Data Vital Signs (Past 12 Hours) Vital Signs Temp Pulse Resp BP Pulse Ox O2 Del Method 06/05/23 14:44 36.5 C 68 16 105/63 95 Room Air 06/05/23 09:36 Room Air 06/05/23 07:17 36.4 C L 69 16 134/76 94 Room Air Laboratory Results Laboratory Results WBC 6.77 K/ul (4.8-10.8) 06/05/23 08:39 RBC 5.47 M/uL (4.70-6.10) 06/05/23 08:39 Hgb 15.7 g/dl (14.0-18.0) 06/05/23 08:39 Hct 48.8 % (42.0-52.0) 06/05/23 08:39 MCV 89.2 fL (80.0-100.0) 06/05/23 08:39 MCH 28.7 pg (25.0-34.0) 06/05/23 08:39 MCHC 32.2 g/dL (32.0-36.0) 06/05/23 08:39 RDW Std Deviation 55.2 fL (36.4-46.3) H 06/05/23 08:39 RDW Coeff of [place] 17.2 % (11.5-14.5) H 06/05/23 08:39 Plt Count 189 K/uL (130-400) 06/05/23 08:39 MPV 11.5 fL (9.4-12.4) 06/05/23 08:39 Immature Gran % (Auto) 0.4 % 06/05/23 08:39 Neut % (Auto) 73.6 % 06/05/23 08:39 Lymph % (Auto) 13.1 % 06/05/23 08:39 [place] % (Auto) 6.1 % 06/05/23 08:39 Eos % (Auto) 5.8 % 06/05/23 08:39 Baso % (Auto) 1.0 % 06/05/23 08:39 Neut # (Auto) 4.98 K/uL (1.40-6.50) 06/05/23 08:39 Lymph # (Auto) 0.89 K/uL (1.20-3.40) L 06/05/23 08:39 [place] # (Auto) 0.41 K/uL (0.11-0.59) 06/05/23 08:39 Eos # (Auto) 0.39 K/uL (0.00-0.50) 06/05/23 08:39 Baso # (Auto) 0.07 K/uL (0.00-0.20) 06/05/23 08:39 Immature Gran # (Auto) 0.03 K/uL (0.01-0.20) 06/05/23 08:39 PT 34.4 Seconds (9.0-12.0) H 06/05/23 08:39 INR 3.4 (0.9-1.1) H 06/05/23 08:39 APTT 56 Seconds (21-31) H 06/04/23 14:36 PTT Ratio 2.0 06/04/23 14:36 Sodium 134 mmol/L (136-145) L 06/05/23 08:39 Potassium 5.2 mmol/L (3.5-5.1) H D 06/05/23 08:39 Chloride 107 mmol/L (98-107) 06/05/23 08:39 Carbon Dioxide 20 mmol/L (21-32) L 06/05/23 08:39 Anion Gap 7 (3-11) 06/05/23 08:39 BUN 57 mg/dl (6-23) H 06/05/23 08:39 Creatinine 2.50 mg/dl (0.6-1.4) H 06/05/23 08:39 Est Cr Clr Drug Dosing 37.5 ml/min 06/05/23 08:39 Est GFR ( Amer) 27.5 ml/min 06/05/23 08:39 Est GFR (Non-Af Amer) 23.7 ml/min 06/05/23 08:39 BUN/Creatinine Ratio 22.8 (10-20) H 06/05/23 08:39 Glucose 142 mg/dl (70-99(Fasting)) H 06/05/23 08:39 Lactate 1.1 mmol/L (0.4-2.0) 06/04/23 15:49 Calcium 8.6 mg/dl (8.6-10.3) 06/05/23 08:39 Total Bilirubin 0.9 mg/dl (0.2-1.0) 06/04/23 14:36 AST 23 U/L (13-39) 06/04/23 14:36 ALT 16 U/L (7-52) 06/04/23 14:36 Alkaline Phosphatase 98 U/L (34-104) 06/04/23 14:36 Total Creatine Kinase 96 U/L (30-223) 06/05/23 08:39 C-Reactive Protein 2.34 mg/dl (0-0.5) H 06/05/23 08:39 Total Protein 7.5 gm/dl (6.0-8.3) 06/04/23 14:36 Albumin 3.7 gm/dl (3.4-5.0) 06/04/23 14:36 Globulin 3.8 gm/dl (2.5-4.0) 06/04/23 14:36 Albumin/Globulin Ratio 1.0 (0.9-2) 06/04/23 14:36 Procalcitonin 0.09 ng/ml (0-0.5) 06/04/23 14:36 TSH 1.440 uIu/ml (0.300-4.500) 06/04/23 15:50 Urine Color Yellow 06/04/23 20:50 Urine Appearance Clear (Clear) 06/04/23 20:50 Urine pH 5.0 (4.5-7.5) 06/04/23 20:50 Ur Specific [place] 1.014 (1.000-1.030) 06/04/23 20:50 Urine Protein 2+ (Negative) H 06/04/23 20:50 Urine Glucose (UA) Negative (Negative) 06/04/23 20:50 Urine Ketones Negative (Negative) 06/04/23 20:50 Urine Blood 2+ (Negative) H 06/04/23 20:50 Urine Nitrite Negative (Negative) 06/04/23 20:50 Urine Bilirubin Negative (Negative) 06/04/23 20:50 Urine Urobilinogen Negative (Negative) 06/04/23 20:50 Ur Leukocyte Esterase Negative (Negative) 06/04/23 20:50 Urine WBC (Auto) 1-5 /hpf (0-5) 06/04/23 20:50 Urine RBC (Auto) 5-10 /hpf (0-4) H 06/04/23 20:50 U Hyaline Cast (Auto) 1-5 /lpf (0-5) 06/04/23 20:50 U Epithel Cells (Auto) >30 /lpf (0-5) H 06/04/23 20:50 Urine Bacteria (Auto) Negative (Negative) 06/04/23 20:50 Impressions Ankle X-Ray 06/04/23 15:23 XR ankle LT min 3V routine HISTORY: 77 years-old Male swelling infetion acute pain and swelling of the left foot and ankle with possible soft tissue infection COMPARISON: Foot radiographs of same day TECHNIQUE: 3 views of the left ankle FINDINGS: Moderate diffuse soft tissue swelling. Spurring of the calcaneus. Mild -to-moderate osteoarthritis of the ankle. Healed chronic fracture deformity of the fourth metatarsal. Arterial calcifications. No acute fracture, dislocation or osteochondral defect. IMPRESSION: Soft tissue swelling without acute osseous abnormality. ACT 112: Negative or not required by law. The above report was generated using voice recognition software. It may contain grammatical, syntax or spelling errors. Electronically signed by: Peter Castillo M.D. 06/04/2023 4:53 PM Foot X-Ray 06/04/23 15:23 XR foot LT 2V CLINICAL HISTORY: Left foot swelling. Infection. COMPARISON: Left foot radiographs December 22, 2021. MRI of the left foot December 27, 2021. FINDINGS: Dorsal foot soft tissue swelling is present. There is no acute fracture within the left foot. No foci of bony erosion are identified. There is moderate mid foot osteoarthritis. A plantar calcaneal spur is noted. Mild osteophytes left first MTP joint. Evaluation of the toes is mildly compromised given chronic deformity. No soft tissue gas is evident. There is an old, healed left fourth metatarsal fracture. IMPRESSION: 1. No radiographic evidence for acute osteomyelitis within the left foot. No fractures. 2. Left foot soft tissue swelling. ACT 112: Negative or not required by law. Electronically signed by: Calvin Preciado M.D. 06/04/2023 4:54 PM PG Care Time/CCT Total # of Minutes Spent Total Time Spent with Patient: Total time spent is greater than 50% in coordination of care (as documented) at patient's floor/unit and/or counseling patient: Coding Level of Care Code 33939 IN/OBS CONSULT LVL 5,80M Diagnoses DALE (acute kidney injury) N17.9 Chronic kidney disease, stage III (moderate) N18.3 Cellulitis of left foot L03.116 Sleep apnea G47.30 Venous stasis dermatitis of both lower extremities I87.2
[2023-06-05] MEDS: AMMONIUM LACTATE 12% LOTION 225 GM BTL EXT SCH (17:46)
--- NOTE | 2023-06-05 19:27 | Ultrasound Report ---
US arterial duplex LE LT CLINICAL HISTORY: poor wound healing left foot COMPARISON STUDY: None. FINDINGS: Ankle-brachial indices were unable to be performed. The patient was unable to tolerate comp ressions. The posterior tibial artery appears noncompressible. Normal triphasic waveforms and velocit ies seen within the left common femoral, superficial femoral, popliteal arteries. Monophasic normal v elocity waveforms seen within the left posterior tibial, anterior tibial, peroneal, and dorsalis pedi s arteries. Calcified plaque throughout the left lower extremity arterial system. IMPRESSION: 1. No significant stenosis or occlusion within the left lower extremity arterial system. 2. Monophasic waveforms within the left calf arteries suggestive of diffuse atherosclerotic disease. ACT 112: Negative or not required by law. Electronically signed by: Cooper Wolf M.D. 06/05/2023 7:25 PM
[2023-06-05 19:48] LABS: Appearance Urine Clear (Clear); Bacteria Urine Automated Negative (Negative); Bilirubin Urine Negative (Negative); Blood Urine 2+ (Negative); Color Urine Yellow; Glucose Urine UA Negative (Negative); Ketones Urine Negative (Negative); Leukocyte Esterase Urine Negative (Negative); Nitrite Urine Negative (Negative); Protein Urine 2+ (Negative); RBC Urine Automated 0-4 /hpf (0-4); Specific Gravity Urine 1.015 (1.000-1.030); Urobilinogen Urine Negative (Negative)
[2023-06-05 21:52] LABS: Total Protein Urine Random 98.8 mg/dl (0-11.9)
[2023-06-05 21:57] LABS: Creatinine Urine Random 112.2 mg/dl; Protein Creatinine Ratio Urine 0.9 (0-0.2)
[2023-06-06] MEDS: SODIUM CHLORIDE 0.9% 500 ML IV SCH (00:53)
--- NOTE | 2023-06-06 05:49 | Electrocardiogram Report ---
Test Reason : Blood Pressure : / mmHG Vent. Rate : 074 BPM Atrial Rate : 000 BPM P-R Int : 000 ms QRS Dur : 142 ms QT Int : 424 ms P-R-T Axes : 000 009 -02 degrees QTc Int : 470 ms Atrial fibrillation Right bundle branch block Abnormal ECG When compared with ECG of 30-OCT-2022 15:10, T wave inversion no longer evident in Lateral leads Confirmed by Ozzy Shi ([id number]) on 06/06/2023 5:49:17 AM Referred By: REFERRED SELF Confirmed By:Ozzy Shi
[2023-06-06] MEDS: allopurinoL 100 MG TAB PO SCH (08:12)
--- NOTE | 2023-06-06 09:13 | Nephrology Progress Note ---
Date of Service June 06, 2023 Assessment & Plan (1) DALE (acute kidney injury): Plan: * Challenging physical exam due to R heart failure * Hold diuretic * 06/05/23 FeNa 0.8% * Will provide 0.9 NS at 80 cc/hr x 1L, then stop * Monitor PRP, UO * Consider renal US if patient fails to respond to gentle hydration (2) Chronic kidney disease, stage III (moderate): Plan: * CKD stage G3b/A3 (moderate impairment). Baseline Cr 1.7-1.9 w/ EGFR 34 cc/min. Benign urine sediment. UPCR 1.0. 11/14 renal US was negative for mass or obstruction. CKD is due to microvascular disease. (3) Hyperkalemia: Plan: * Low K diet * Lokelma 10 g po x 1 today (4) Cellulitis of left foot: Plan: * Daptomycin as per ID retail client solutions consultant * Monitor weekly CPK level (5) Sleep apnea: Plan: * Encourage compliance w/ CPAP (6) Venous stasis dermatitis of both lower extremities: Plan: * Will need to keep feet, distal legs wrapped when OOB once cellulitis resolves Admission and Anticipated Discharge Date Admission Date: June 04, [address] Rachel was evaluated in his hospital room this morning. He was sitting up in a chair. Dr. Rachel denied dyspnea. His LLE discomfort was mildly improved Review of Systems Constitutional: no fever Eyes: no worsening vision Ear, Nose, Mouth, Throat: no problem reported Respiratory: no cough and no dyspnea Cardiovascular: no chest pain Gastrointestinal: no abdominal pain, no nausea, no vomiting and no diarrhea/loose stools Genitourinary: no dysuria or no hematuria Physical Exam Constitutional: no acute distress Eyes: PERRL, conjunctivae normal, anicteric sclerae ENMT: external ear and nose normal, oropharynx normal Neck: trachea midline, no thyromegaly Respiratory: normal respiratory effort, lungs clear to auscultation Cardiovascular: Rate/Rhythm: + irregularly irregular Gastrointestinal (Abdomen): normal bowel sounds, soft, nontender, no hepatosplenomegaly Neurologic: Speech / Cognition: normal speech and normal cognition Psychiatric: Affect: euthymic affect Results & Data Vital Signs (Past 12 Hours) Vital Signs Temp Pulse Resp BP Pulse Ox O2 Del Method 06/06/23 07:15 36.5 C 67 16 134/87 95 Room Air Laboratory Results Laboratory Results - last 24 hr 06/05/23 06/05/23 08:39 19:25 WBC 6.77 RBC 5.47 Hgb 15.7 Hct 48.8 MCV 89.2 MCH 28.7 MCHC 32.2 RDW Std Deviation 55.2 H RDW Coeff of [place] 17.2 H Plt Count 189 MPV 11.5 Immature Gran % (Auto) 0.4 Neut % (Auto) 73.6 Lymph % (Auto) 13.1 Darke % (Auto) 6.1 Eos % (Auto) 5.8 Baso % (Auto) 1.0 Neut # (Auto) 4.98 Lymph # (Auto) 0.89 L Darke # (Auto) 0.41 Eos # (Auto) 0.39 Baso # (Auto) 0.07 Immature Gran # (Auto) 0.03 PT 34.4 H INR 3.4 H Sodium 134 L Potassium 5.2 H D Chloride 107 Carbon Dioxide 20 L Anion Gap 7 BUN 57 H Creatinine 2.50 H Est Cr Clr Drug Dosing 37.5 Est GFR ( Amer) 27.5 Est GFR (Non-Af Amer) 23.7 BUN/Creatinine Ratio 22.8 H Glucose 142 H Calcium 8.6 Total Creatine Kinase 96 C-Reactive Protein 2.34 H Urine Color Yellow Urine Appearance Clear Urine pH 5.0 Ur Specific [place] 1.015 Urine Protein 2+ H Urine Glucose (UA) Negative Urine Ketones Negative Urine Blood 2+ H Urine Nitrite Negative Urine Bilirubin Negative Urine Urobilinogen Negative Ur Leukocyte Esterase Negative Urine WBC (Auto) 1-5 Urine RBC (Auto) 0-4 U Hyaline Cast (Auto) 1-5 U Epithel Cells (Auto) 5-10 H Urine Bacteria (Auto) Negative Ur Random Creatinine 112.2 U Random Total Protein 98.8 H Ur Random Sodium 50 Protein/Creatinin Ratio 0.9 H 06/05/23 FeNa 0.8% PG Care Time/CCT Total # of Minutes Spent Total Time Spent with Patient: Total time spent is greater than 50% in coordination of care (as documented) at patient's floor/unit and/or counseling patient: Coding Level of Care Code 84852 SUB INP/OBS CARE 3/50MIN Diagnoses DALE (acute kidney injury) N17.9 Chronic kidney disease, stage III (moderate) N18.3 Hyperkalemia E87.5 Cellulitis of left foot L03.116 Sleep apnea G47.30 Venous stasis dermatitis of both lower extremities I87.2
[2023-06-06 09:31] LABS: Hematocrit (blood only) 50.4 % (42.0-52.0); Hemoglobin 16.2 g/dl (14.0-18.0); Mean Corpuscular Hemoglobin 29.2 pg (25.0-34.0); Mean Corpuscular Hgb Conc 32.1 g/dL (32.0-36.0); Mean Corpuscular Volume 90.8 fL (80.0-100.0); Platelet Count 194 K/uL (130-400); RDW Coefficient of Variation 17.6 % (11.5-14.5); RDW Standard Deviation 57.7 fL (36.4-46.3); Red Blood Count 5.55 M/uL (4.70-6.10); White Blood Count 6.79 K/ul (4.8-10.8)
[2023-06-06 09:56] LABS: BUN Creatinine Ratio 18.9 (10-20); Calcium 8.7 mg/dl (8.6-10.3); Creatinine Clr Calc Pharmacy 31.6 ml/min; Est GFR (African American) 22.3 ml/min; Est GFR (Non-African American) 19.2 ml/min; Potassium 4.5 mmol/L (3.5-5.1)
[2023-06-06 10:23] LABS: INR 2.1 (0.9-1.1); Prothrombin Time 21.8 Seconds (9.0-12.0)
[2023-06-06] MEDS: SODIUM CHLORIDE 0.9% 1,000 ML IV SCH (10:27)
--- NOTE | 2023-06-06 12:53 | Infectious Disease Progress Nt ---
Date of Service June 06, 2023 Assessment & Plan (1) Diabetic foot infection: (2) Cellulitis of left foot: (3) Chronic venous insufficiency: Plan 77yo M with h/o HFpEF and right sided HF, CKD III, gout, hypothyroidism, OA of knees, afib on coumadin, chronic venous stasis, dermatitis and lymphedema, DVT, severe DERREK, recurrent cellulitis of L leg (prior tx with dapto/ceftazidime 11/2021, then dapto/meropenem 12/2021 but abx stopped as derm felt it was stasis dermatitis and leg appearance unchanged from prior visits) who presented on 06/03 with increasing swelling and redness of the left leg and second and third toes, especially over the last 2 weeks with chronic LLE wounds. Redness in the left leg is not worse but did think it was worse in the 2 toes. He was afebrile, vss. WBC wnl. Cr 2.60, LFT wnl. PCT 0.09. CRP 2.34. UA neg. XR L ankle with soft tissue swelling. XR L foot neg for OM, noted soft tissue swelling. He has been receiving daptomycin and levofloxacin. ID consulted 06/04 for assistance. Erythema of left toes continuing to improve today. No open lesions and XR is negative for OM. Will continue to cover for Pseudomonas and MRSA. He can complete therapy of 5-7 days with doxycycline and levofloxacin starting from 06/03. Abx: Daptomycin 06/03- Levofloxacin 06/03- 12/2021 R leg cx: MRSA (S-tetracycline), PsA (R- cefepime, zosyn, ceftazidime, S-FQ), Alcaligenes faecalis 06/03 BCX: ngtd # Cellulitis of left toes - improving # DALE on CKD III # Chronic venous stasis - continue on daptomycin and levofloxacin (renally dosed due to DALE) - can be changed to PO regimen with doxycycline 100mg PO twice daily and levofloxacin 750mg PO q48h (depending on renal function) - complete a total duration of 5-7 days starting from 06/03 (given quick improvement, can complete in 5 days on 06/07) ID will discontinue active follow up at this time. Please do not hesitate to reconsult the Infectious Diseases service as needed. Teresa Larios MD [facility], Division of Infectious Diseases [facility]: [phone] Admission and Anticipated Discharge Date Admission Date: June 04, 2023 Subjective Subsequent visit was provided via telemedicine using two-way real-time interactive telecommunication between the patient and the telemedicine provider. For the duration of the visit, the provider was performing the assessment from a different facility than the patient. This includesuse of bluetooth stethoscope forauscultationperformed by the telepresenter that the telemedicine provider can hear if described in the physical exam. Bobbin Trucker contact information: Please call [facility] Call Center . (Phone Number For Physician Use Only) After establishing a telemedicine visit, patient was: Patient was verified with two unique identifiers, Patient/authorized rep acknowledged consent and understanding and Gave permission to continue telehealth session Time Spent with Patient: Subsequent => 55 min Patient reports feeling well. No abdominal pain, vomiting, diarrhea. Left leg feels better. Physical Exam Physical Exam: General: Awake, alert, no acute distress HEENT: NC/AT, EOMI, mmm Neck: supple, Lungs: respirations non-labored Heart: nl peripheral perfusion Abdomen: soft, nontender Ext: improving erythema over left toes Results & Data Vital Signs (Past 12 Hours) Vital Signs Temp Pulse Resp BP Pulse Ox O2 Del Method 06/06/23 07:15 36.5 C 67 16 134/87 95 Room Air Laboratory Results labs reviewed
[2023-06-06] MEDS: WARFARIN SOD 7.5 MG TAB PO SCH (16:12)
--- NOTE | 2023-06-06 18:39 | Hospitalist Progress Note ---
Date of Service June 06, 2023 Assessment & Plan (1) Toe infection: Plan: left second and third toes more swollen and erythematous on admission than previous as per patient in addition to chronic erythema from severe venous stasis. No fevers, no leukocytosis and procalcitonin is negative X-rays of the foot and ankle with soft tissue swelling but no evidence of osteomyelitis With significant lymphedema and venous stasis contributing to predisposition to infection Overall appears improved Given history of Pseudomonas, MRSA,treating with daptomycin and levofloxacin Checked arterial Doppler-diffuse disease left leg but no sig stenosis or occlusion Consult infectious disease-appreciated--> plan for MRI foot if develops open wounds. Otherwise continue same abx w/ Levaquin and Dapto and and convert to po abx in the form of doxycycline and levofloxacin on discharge through 06/10 Consult wound care appreciated-add Lac Hydrin for thickened skin Started clotrimazole to foot in between toes for suspected fungal infection with superimposed Follow CBC, CMP, CRP Monitor for fevers Follow blood cultures-remain NGTD (2) DALE (acute kidney injury): Plan: Likely due to recent addition of furosemide to his medication regimen in setting of right sided heart failure Intravascularly volume depleted despite massive volume overload Baseline creatinine 1.6-1.8 and follows with nephrology Creatinine 2.6 on admission and now further increased to 2.9, nonoliguric UA with 2+ blood and 2+ protein with associated hyperkalemia and metabolic acidosis now improved with oral sodium bicarbonate and low potassium diet, Lokelma x 1 Give another 1L of normal saline at 80 MLS per hour Check renal ultrasound if not improving in the morning Follow BMP Discontinued furosemide Continue NaHCO3 650mg po bid COnsult Nephrology appreciated (3) Hyperkalemia: Plan: as above, now resolved (4) PAD (peripheral artery disease): Plan: Evidenced by diffuse disease without occlusion of left lower extremity on arterial Doppler Start aspirin and start statin when daptomycin is discontinued (5) Venous stasis dermatitis of both lower extremities: Plan: Chronic, wears compression wraps Consult wound care Continue steroid cream from home given by dermatology (6) Current use of emt intermediate anticoagulation: Plan: On Coumadin for both atrial fibrillation and history of DVT while on Xarelto in the past INR supratherapeutic on admission and now 2.1 Resume home doses of Coumadin Follow INR in the morning (7) Chronic kidney disease, stage III (moderate): Plan: With CKD stage III with baseline creatinine 1.8 as above (8) Right-sided heart failure: Plan: Declined CPAP Has acute kidney injury with diuretics in the past as he does today (9) (HFpEF) heart failure with preserved ejection fraction: Plan: Previously reduced EF 40% now improved as per last cardiology note Strict I's and O's, daily weights, low-sodium diet Hold home Lasix due to renal failure Blood pressure control (10) Hypertension: Plan: Blood pressures are fairly well-controlled Continue home metoprolol Discontinued home furosemide (11) Chronic atrial fibrillation: Plan: Rates are controlled here Continue home metoprolol Restart Coumadin No need to monitor on telemetry (12) Gout: Plan: No acute issues Continue allopurinol but renally dose down to 100mg daily (13) Hypothyroidism: Plan: TSH normal here at 1.4 Continue home levothyroxine (14) Thoracic aortic aneurysm: Plan: 4.3 cm as per last cardiology note, followed as outpatient Blood pressure controlled (15) Sleep apnea: Plan: Severe and contributing to right-sided heart failure Patient has a CPAP at home but says he does not want or need to wear it Plan DVT prophylaxis-Coumadin Disposition-continued stay medical/surgical unit due to renal failure Full code Admission and Anticipated Discharge Date Admission Date: June 04, 2023 Subjective No complaints, no pain in the foot, is making his normal amount of urine Physical Exam Constitutional: WD/WN, vitals as above + morbidly obese Eyes: + anicteric sclerae Neck: trachea midline, no thyromegaly Respiratory: normal respiratory effort, lungs clear to auscultation Cardiovascular: Rate/Rhythm: regular rate and + irregularly irregular Heart Sounds: no murmur Extremities: + edema (3+ edema left leg, 1+ right leg); no calf tenderness Chest (Breasts): Chest: normal inspection of chest Gastrointestinal (Abdomen): normal bowel sounds, soft, nontender, no hepatosplenomegaly Musculoskeletal: Extremities: no cyanosis and no clubbing Skin: + ulcer (Thickened dry skin with cracks posterior distal leg improved with debrideme), + dry skin and + erythema (Chronic javad erythema bilateral legs to the knees) Left second and third toes less erythematous and less edematous Neurologic: moves all extremities and awake; no focal motor deficits Psychiatric: A+Ox3, euthymic affect Results & Data Results & Data Vital Signs (Past 12 Hours) Vital Signs Temp Pulse Resp BP Pulse Ox O2 Del Method 06/06/23 14:39 36.7 C 51 L 16 128/84 94 Room Air 06/06/23 07:15 36.5 C 67 16 134/87 95 Room Air Laboratory Results CBC, BMP, INR reviewed PG Care Time/CCT Total # of Minutes Spent Total Time Spent with Patient: Total time spent is greater than 50% in coordination of care (as documented) at patient's floor/unit and/or counseling patient: Coding Level of Care Code 20844 SUB INP/OBS CARE 2/35MIN Diagnoses Toe infection L08.9 DALE (acute kidney injury) N17.9 Hyperkalemia E87.5 PAD (peripheral artery disease) I73.9 Venous stasis dermatitis of both lower extremities I87.2 Current use of emt intermediate anticoagulation Z79.01 Chronic kidney disease, stage III (moderate) N18.3 Right-sided heart failure I50.810 (HFpEF) heart failure with preserved ejection fraction I50.30 Hypertension I10 Chronic atrial fibrillation I48.2 Gout M10.9 Hypothyroidism E03.9 Thoracic aortic aneurysm I71.2 Sleep apnea G47.30
[2023-06-07 06:43] LABS: BUN Creatinine Ratio 18.2 (10-20); Calcium 8.4 mg/dl (8.6-10.3); Creatinine Clr Calc Pharmacy 31.1 ml/min; Est GFR (African American) 21.9 ml/min; Est GFR (Non-African American) 18.9 ml/min; Potassium 4.5 mmol/L (3.5-5.1)
[2023-06-07 06:49] LABS: INR 1.8 (0.9-1.1); Prothrombin Time 18.9 Seconds (9.0-12.0)
--- NOTE | 2023-06-07 09:13 | Nephrology Progress Note ---
Date of Service June 07, 2023 Assessment & Plan (1) DALE (acute kidney injury): Plan: * Challenging physical exam due to R heart failure * Creatinine relatively stable 2.8-3.0 last 24 hours * 06/05/23 FeNa 0.8% * Hold diuretic, encourage oral hydration * Will order renal US * Monitor PRP, UO (2) Chronic kidney disease, stage III (moderate): Plan: * CKD stage G3b/A3 (moderate impairment). Baseline Cr 1.7-1.9 w/ EGFR 34 cc/min. Benign urine sediment. UPCR 1.0. 11/14 renal US was negative for mass or obstruction. CKD is due to microvascular disease. (3) Hyperkalemia: Plan: * Resolved. Continue low K diet (4) Cellulitis of left foot: Plan: * Daptomycin, Levofloxacin as per ID employee relations consultant * Monitor weekly CPK level (5) Sleep apnea: Plan: * Encourage compliance w/ CPAP (6) Venous stasis dermatitis of both lower extremities: Plan: * Will need to keep feet, distal legs wrapped when OOB once cellulitis resolves Admission and Anticipated Discharge Date Admission Date: June 04, [address] Rachel was evaluated in his hospital room this morning. He denied dyspnea and reports that his LLE discomfort has improved Review of Systems Constitutional: no fever Eyes: no worsening vision Ear, Nose, Mouth, Throat: no problem reported Respiratory: no cough and no dyspnea Cardiovascular: no chest pain Gastrointestinal: no abdominal pain, no nausea, no vomiting and no diarrhea/loose stools Genitourinary: no dysuria or no hematuria Physical Exam Constitutional: no acute distress Eyes: PERRL, conjunctivae normal, anicteric sclerae ENMT: external ear and nose normal, oropharynx normal Neck: trachea midline, no thyromegaly Respiratory: normal respiratory effort, lungs clear to auscultation Cardiovascular: Rate/Rhythm: + irregularly irregular Gastrointestinal (Abdomen): normal bowel sounds, soft, nontender, no hepatosplenomegaly Neurologic: Speech / Cognition: normal speech and normal cognition Psychiatric: Affect: euthymic affect Results & Data Vital Signs (Past 12 Hours) Vital Signs Temp Pulse Resp BP Pulse Ox O2 Del Method 06/07/23 07:17 36.7 C 66 18 125/82 98 Room Air Laboratory Results Laboratory Results - last 24 hr 03/06/06/23 06/07/23 08:32 09:40 05:25 WBC 6.79 RBC 5.55 Hgb 16.2 Hct 50.4 MCV 90.8 MCH 29.2 MCHC 32.1 RDW Std Deviation 57.7 H RDW Coeff of [place] 17.6 H Plt Count 194 MPV 11.0 PT 21.8 H 18.9 H INR 2.1 H 1.8 H Sodium 136 135 L Potassium 4.5 4.5 Chloride 105 107 Carbon Dioxide 24 21 Anion Gap 7 7 BUN 56 H 55 H Creatinine 2.97 H D 3.02 H Est Cr Clr Drug Dosing 31.6 31.1 Est GFR ( Amer) 22.3 21.9 Est GFR (Non-Af Amer) 19.2 18.9 BUN/Creatinine Ratio 18.9 18.2 Glucose 108 H 103 H Calcium 8.7 8.4 L PG Care Time/CCT Total # of Minutes Spent Total Time Spent with Patient: Total time spent is greater than 50% in coordination of care (as documented) at patient's floor/unit and/or counseling patient: Coding Level of Care Code 91778 SUB INP/OBS CARE 3/50MIN Diagnoses DALE (acute kidney injury) N17.9 Chronic kidney disease, stage III (moderate) N18.3 Hyperkalemia E87.5 Cellulitis of left foot L03.116 Sleep apnea G47.30 Venous stasis dermatitis of both lower extremities I87.2
--- NOTE | 2023-06-07 10:57 | Ultrasound Report ---
RENAL ULTRASOUND HISTORY: worsening renal failure COMPARISON: Abdomen and pelvis CT 10/30/2022. FINDINGS: Right kidney: 12.9 cm. No hydronephrosis. Multiple renal cysts again noted. Dominant exophytic cyst w ithin the upper pole measures 13.2 cm and demonstrates layering echogenic material consistent with a hemorrhagic cyst. Mild cortical thinning. Left kidney: 12.8 cm. Multiple cysts with the largest measuring 4.5 cm. No hydronephrosis. Mild corti ellen thinning. Bladder: No bladder wall thickening. Only the left ureteral jet was identified during the examination . IMPRESSION: 1. No hydronephrosis. 2. Multiple renal cysts again noted. Dominant 13.2 cm right renal cyst appears to represent a hemorrh agic cyst. 3. Mild bilateral cortical renal thinning, unchanged. 4. No bladder wall thickening. ACT 112: Negative or not required by law. Electronically signed by: Cooper Wolf M.D. 06/07/2023 10:56 AM
[2023-06-07] MEDS: WARFARIN SOD 5 MG TAB PO SCH (15:42)
--- NOTE | 2023-06-07 16:52 | Hospitalist Progress Note ---
Date of Service June 07, 2023 Assessment & Plan (1) Toe infection: Plan: left leg, and left second and third toes more swollen and erythematous on admission than previous as per patient in addition to chronic erythema from severe venous stasis. No fevers, no leukocytosis and procalcitonin is negative X-rays of the foot and ankle with soft tissue swelling but no evidence of osteomyelitis With significant lymphedema and venous stasis contributing to predisposition to infection Overall appears improved, erythema much improved Given history of Pseudomonas, MRSA,treating with daptomycin and levofloxacin Checked arterial Doppler-diffuse disease left leg but no sig stenosis or occlusion Consult infectious disease-appreciated--> plan for MRI foot if develops open wounds. Otherwise continue same abx w/ Levaquin and Dapto and and convert to po abx in the form of doxycycline and levofloxacin on discharge through 06/10 Consult wound care appreciated-added Lac Hydrin for thickened skin Started clotrimazole to foot in between toes for suspected fungal infection with superimposed Follow CBC, CMP, CRP Monitor for fevers Follow blood cultures-remain NGTD (2) DALE (acute kidney injury): Plan: Likely due to recent addition of furosemide to his medication regimen in setting of right sided heart failure Intravascularly volume depleted despite massive volume overload Baseline creatinine 1.6-1.8 and follows with nephrology Creatinine 2.6 on admission and now further increased to 3.0 despite L of NS over 2 days, remains nonoliguric UA with 2+ blood and 2+ protein with associated hyperkalemia and metabolic acidosis now improved with oral sodium bicarbonate and low potassium diet, Lokelma x 1 Check renal ultrasound -shows no obstruction, with renal cysts Follow BMP Discontinued furosemide Continue NaHCO3 650mg po bid COnsult Nephrology appreciated (3) Hyperkalemia: Plan: as above, now resolved continue sodium bicarb low potassium diet (4) PAD (peripheral artery disease): Plan: Evidenced by diffuse disease without occlusion of left lower extremity on arterial Doppler Start aspirin and start statin when daptomycin is discontinued (5) Venous stasis dermatitis of both lower extremities: Plan: Chronic, wears compression wraps Consult wound care Continue steroid cream from home given by dermatology (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: Plan: On Coumadin for both atrial fibrillation and history of DVT while on Xarelto in the past INR supratherapeutic on admission and now 1.9 ater initially holding coumadin for 2 days Continue home doses of Coumadin Follow INR in the morning (7) Chronic kidney disease, stage III (moderate): Plan: With CKD stage III with baseline creatinine 1.8 as above (8) Right-sided heart failure: Plan: Declined CPAP Has acute kidney injury with diuretics in the past (9) (HFpEF) heart failure with preserved ejection fraction: Plan: Previously reduced EF 40% now improved as per last cardiology note Strict I's and O's, daily weights, low-sodium diet Hold home Lasix due to renal failure Blood pressure control (10) Hypertension: Plan: Blood pressures are fairly well-controlled Continue home metoprolol Discontinued home furosemide (11) Chronic atrial fibrillation: Plan: Rates are controlled here Continue home metoprolol Restarted Coumadin No need to monitor on telemetry (12) Gout: Plan: No acute issues Continue allopurinol but renally dose down to 100mg daily (13) Hypothyroidism: Plan: TSH normal here at 1.4 Continue home levothyroxine (14) Thoracic aortic aneurysm: Plan: 4.3 cm as per last cardiology note, followed as outpatient Blood pressure controlled (15) Sleep apnea: Plan: Severe and contributing to right-sided heart failure Patient has a CPAP at home but says he does not want or need to wear it Plan DVT prophylaxis-Coumadin Disposition-continued stay medical/surgical unit due to renal failure Full code Admission and Anticipated Discharge Date Admission Date: June 04, 2023 Subjective Feels well, no complaints, making urine, eating and drinking. Physical Exam Constitutional: WD/WN, vitals as above + morbidly obese Eyes: + anicteric sclerae Neck: trachea midline, no thyromegaly Respiratory: normal respiratory effort, lungs clear to auscultation Cardiovascular: Rate/Rhythm: regular rate and + irregularly irregular Heart Sounds: no murmur Extremities: + edema (3+ edema left leg, 1+ right leg); no calf tenderness Chest (Breasts): Chest: normal inspection of chest Gastrointestinal (Abdomen): normal bowel sounds, soft, nontender, no hepatosplenomegaly Musculoskeletal: Extremities: no cyanosis and no clubbing Skin: + lesion (Smell of yeast and white exuda te between toes), + ulcer (Thickened dry skin with cracks posterior distal leg improved with debrideme), + dry skin and + erythema ( erythema bilateral legs to the knees much improved) Neurologic: moves all extremities and awake; no focal motor deficits Psychiatric: A+Ox3, euthymic affect Results & Data Results & Data Vital Signs (Past 12 Hours) Vital Signs Temp Pulse Resp BP Pulse Ox O2 Del Method 06/07/23 14:49 36.5 C 60 18 127/76 96 Room Air 06/07/23 07:45 Room Air 06/07/23 07:17 36.7 C 66 18 125/82 98 Room Air Laboratory Results BMP, INR, BCxs reviewed PG Care Time/CCT Total # of Minutes Spent Total Time Spent with Patient: Total time spent is greater than 50% in coordination of care (as documented) at patient's floor/unit and/or counseling patient: Coding Level of Care Code 64690 SUB INP/OBS CARE 2/35MIN Diagnoses Toe infection L08.9 DALE (acute kidney injury) N17.9 Hyperkalemia E87.5 PAD (peripheral artery disease) I73.9 Venous stasis dermatitis of both lower extremities I87.2 Current use of [facility] anticoagulation Z79.01 Chronic kidney disease, stage III (moderate) N18.3 Right-sided heart failure I50.810 (HFpEF) heart failure with preserved ejection fraction I50.30 Hypertension I10 Chronic atrial fibrillation I48.2 Gout M10.9 Hypothyroidism E03.9 Thoracic aortic aneurysm I71.2 Sleep apnea G47.30
[2023-06-08 06:09] LABS: Hematocrit (blood only) 48.7 % (42.0-52.0); Hemoglobin 15.7 g/dl (14.0-18.0); Mean Corpuscular Hgb Conc 32.2 g/dL (32.0-36.0); Platelet Count 182 K/uL (130-400); RDW Coefficient of Variation 16.9 % (11.5-14.5); RDW Standard Deviation 54.7 fL (36.4-46.3); Red Blood Count 5.41 M/uL (4.70-6.10)
[2023-06-08 06:25] LABS: BUN Creatinine Ratio 17.7 (10-20); Calcium 8.7 mg/dl (8.6-10.3); Creatinine Clr Calc Pharmacy 31.9 ml/min; Est GFR (African American) 22.6 ml/min; Est GFR (Non-African American) 19.5 ml/min; Potassium 4.4 mmol/L (3.5-5.1)
[2023-06-08 06:37] LABS: INR 1.8 (0.9-1.1); Prothrombin Time 18.9 Seconds (9.0-12.0)
[2023-06-08] MEDS: ASPIRIN 81 MG ECTAB PO SCH (08:46)
--- NOTE | 2023-06-08 09:11 | Nephrology Progress Note ---
Date of Service June 08, 2023 Assessment & Plan (1) DALE (acute kidney injury): Plan: * Challenging physical exam due to R heart failure * Creatinine relatively stable 2.8-3.0 last 24 hours * 06/05/23 FeNa 0.8% * Hold diuretic, encourage oral hydration * 06/07/23 Renal US - no hydronephrosis * Expect renal function will improve as inflammation/cellulitis resolves * Monitor PRP, UO (2) Chronic kidney disease, stage III (moderate): Plan: * CKD stage G3b/A3 (moderate impairment). Baseline Cr 1.7-1.9 w/ EGFR 34 cc/min. Benign urine sediment. UPCR 1.0. 11/14 renal US was negative for mass or obstruction. CKD is due to microvascular disease. (3) Hyperkalemia: Plan: * Resolved. Continue low K diet (4) Cellulitis of left foot: Plan: * Daptomycin, Levofloxacin as per ID senior management consultant * Monitor weekly CPK level (5) Sleep apnea: Plan: * Encourage compliance w/ CPAP (6) Venous stasis dermatitis of both lower extremities: Plan: * Will need to keep feet, distal legs wrapped when OOB once cellulitis resolves Admission and Anticipated Discharge Date Admission Date: June 04, [address] Rachel was evaluated in his hospital room this morning. He denied dyspnea and reports that his LLE discomfort has improved Review of Systems Constitutional: no fever Eyes: no worsening vision Ear, Nose, Mouth, Throat: no problem reported Respiratory: no cough and no dyspnea Cardiovascular: no chest pain Gastrointestinal: no abdominal pain, no nausea, no vomiting and no diarrhea/loose stools Genitourinary: no dysuria or no hematuria Physical Exam Constitutional: no acute distress Eyes: PERRL, conjunctivae normal, anicteric sclerae ENMT: external ear and nose normal, oropharynx normal Neck: trachea midline, no thyromegaly Respiratory: normal respiratory effort, lungs clear to auscultation Cardiovascular: Rate/Rhythm: + irregularly irregular Gastrointestinal (Abdomen): normal bowel sounds, soft, nontender, no hepatosplenomegaly Neurologic: Speech / Cognition: normal speech and normal cognition Psychiatric: Affect: euthymic affect Results & Data Vital Signs (Past 12 Hours) Vital Signs Temp Pulse Resp BP Pulse Ox O2 Del Method 06/08/23 07:19 36.4 C L 57 L 20 137/89 97 Room Air Laboratory Results Laboratory Results - last 24 hr 06/08/23 05:50 WBC 7.00 RBC 5.41 Hgb 15.7 Hct 48.7 MCV 90.0 MCH 29.0 MCHC 32.2 RDW Std Deviation 54.7 H RDW Coeff of [place]serrat 16.9 H Plt Count 182 MPV 11.0 PT 18.9 H INR 1.8 H Sodium 134 L Potassium 4.4 Chloride 107 Carbon Dioxide 21 Anion Gap 6 BUN 52 H Creatinine 2.94 H Est Cr Clr Drug Dosing 31.9 Est GFR ( Amer) 22.6 Est GFR (Non-Af Amer) 19.5 BUN/Creatinine Ratio 17.7 Glucose 110 H Calcium 8.7 Diagnostic Findings 06/07/23 renal US: R 12.9 cm. No hydronephrosis. Multiple renal cysts again noted. Dominant exophytic cyst within the upper pole measures 13.2 cm and demonstrates layering echogenic material consistent with a hemorrhagic cyst. Mild cortical thinning. L 12.8 cm. Multiple cysts with the largest measuring 4.5 cm. No hydronephrosis. Mild cortical thinning. No bladder wall thickening. Only the left ureteral jet was identified during the examination. PG Care Time/CCT Total # of Minutes Spent Total Time Spent with Patient: Total time spent is greater than 50% in coordination of care (as documented) at patient's floor/unit and/or counseling patient: Coding Level of Care Code 74765 SUB INP/OBS CARE 3/50MIN Diagnoses DALE (acute kidney injury) N17.9 Chronic kidney disease, stage III (moderate) N18.3 Hyperkalemia E87.5 Cellulitis of left foot L03.116 Sleep apnea G47.30 Venous stasis dermatitis of both lower extremities I87.2
--- NOTE | 2023-06-08 15:50 | Hospitalist Progress Note ---
Date of Service June 08, 2023 Assessment & Plan (1) Toe infection: Plan: Cellulitis of left leg,foot and 2nd/3rd toes-- toes more swollen and erythematous on admission than previous as per patient in addition to chronic erythema from severe venous stasis. No fevers, no leukocytosis and procalcitonin is negative X-rays of the foot and ankle with soft tissue swelling but no evidence of osteomyelitis With significant lymphedema and venous stasis contributing to predisposition to infection Overall appears improved, erythema much improved Given history of Pseudomonas, MRSA,treating with daptomycin and levofloxacin Checked arterial Doppler-diffuse disease left leg but no sig stenosis or occlusion Consult infectious disease-appreciated--> plan for MRI foot if develops open wounds. Otherwise continue same abx w/ Levaquin and Dapto and and convert to po abx in the form of doxycycline and levofloxacin on discharge through 06/10 Consult wound care appreciated-added Lac Hydrin for thickened skin--> a significant amount of skin exfoliation has occurred thus far Started clotrimazole to foot in between toes for suspected fungal infection Follow CBC, CMP, CRP Monitor for fevers Follow blood cultures-remain NGTD (2) DALE (acute kidney injury): Plan: Likely due to recent addition of furosemide to his medication regimen in setting of right sided heart failure Intravascularly volume depleted despite massive volume overload Baseline creatinine 1.6-1.8 and follows with nephrology Creatinine 2.6 on admission and peaked at 3.0 despite 2L of NS over 2 days, remains nonoliguric. Carbonator now improved slightly down to 1.94 UA with 2+ blood and 2+ protein with associated hyperkalemia and metabolic acidosis now improved with oral sodium bicarbonate and low potassium diet, Lokelma x 1 Checked renal ultrasound -shows no obstruction, with renal cysts Follow BMP again in AM and if continues to improve, can dc to home tomorrow Discontinued furosemide Continue NaHCO3 650mg po bid COnsult Nephrology appreciated Will need close outpt Nephro f/u (3) Hyperkalemia: Plan: as above, now resolved continue sodium bicarb low potassium diet (4) PAD (peripheral artery disease): Plan: Evidenced by diffuse disease without occlusion of left lower extremity on arter ial Doppler Start aspirin and plan to start statin when daptomycin is discontinued (5) Venous stasis dermatitis of both lower extremities: Plan: Chronic, wears compression wraps Consult wound care Continue steroid cream from home given by dermatology Continue Lac Hydrin cream for exfoliation (6) Current use of [facility] anticoagulation: Plan: On Coumadin for both atrial fibrillation and history of DVT while on Xarelto in the past INR supratherapeutic on admission and now 1.8 as initially held coumadin for 2 days Continue home doses of Coumadin Follow INR in the morning (7) Chronic kidney disease, stage III (moderate): Plan: With CKD stage III with baseline creatinine 1.8 as above (8) Right-sided heart failure: Plan: Declined CPAP Has acute kidney injury with diuretics in the past (9) (HFpEF) heart failure with preserved ejection fraction: Plan: Previously reduced EF 40% now improved as per last cardiology note Strict I's and O's, daily weights, low-sodium diet Hold home Lasix due to renal failure Blood pressure control (10) Hypertension: Plan: Blood pressures are fairly well-controlled Continue home metoprolol Discontinued home furosemide (11) Chronic atrial fibrillation: Plan: Rates are controlled here Continue home metoprolol continue Coumadin No need to monitor on telemetry (12) Gout: Plan: No acute issues Continue allopurinol but renally dose down to 100mg daily (13) Hypothyroidism: Plan: TSH normal here at 1.4 Continue home levothyroxine (14) Thoracic aortic aneurysm: Plan: 4.3 cm as per last cardiology note, followed as outpatient Blood pressure controlled (15) Sleep apnea: Plan: Severe and contributing to right-sided heart failure Patient has a CPAP at home but says he does not want or need to wear it Plan DVT prophylaxis-Coumadin Disposition-continued stay medical/surgical unit due to renal failure, possible discharge to home tomorrow, will need outpt Wound Care CLinic follow up Full code Admission and Anticipated Discharge Date Admission Date: June 04, 2023 Subjective Pt anxious for discharge, has no complaints Physical Exam Constitutional: WD/WN, vitals as above + morbidly obese Eyes: + anicteric sclerae Neck: trachea midline, no thyromegaly Respiratory: normal respiratory effort, lungs clear to auscultation Cardiovascular: Rate/Rhythm: regular rate and + irregularly irregular Heart Sounds: no murmur Extremities: + edema (3+ edema left leg, 1+ right leg); no calf tenderness Chest (Breasts): Chest: normal inspection of chest Gastrointestinal (Abdomen): normal bowel sounds, soft, nontender, no hepatosplenomegaly Musculoskeletal: Extremities: no cyanosis and no clubbing Skin: + ulcer (Thickened dry skin with cracks posterior distal leg improved ), + dry skin and + erythema (very mild erythema bilateral legs to the knees much improved) Neurologic: moves all extremities and awake; no focal motor deficits Psychiatric: A+Ox3, euthymic affect Results & Data Results & Data Vital Signs (Past 12 Hours) Vital Signs Temp Pulse Resp BP Pulse Ox O2 Del Method 06/08/23 14:40 36.5 C 50 L 19 166/89 H 97 Room Air 06/08/23 07:19 36.4 C L 57 L 20 137/89 97 Room Air Laboratory Results CBC, INR, BMP reviewed BCxs reviewed-no growth PG Care Time/CCT Total # of Minutes Spent Total Time Spent with Patient: Total time spent is greater than 50% in coordination of care (as documented) at patient's floor/unit and/or counseling patient: Coding Level of Care Code 35733 SUB INP/OBS CARE 2/35MIN Diagnoses Toe infection L08.9 DALE (acute kidney injury) N17.9 Hyperkalemia E87.5 PAD (peripheral artery disease) I73.9 Venous stasis dermatitis of both lower extremities I87.2 Current use of terminologist anticoagulation Z79.01 Chronic kidney disease, stage III (moderate) N18.3 Right-sided heart failure I50.810 (HFpEF) heart failure with preserved ejection fraction I50.30 Hypertension I10 Chronic atrial fibrillation I48.2 Gout M10.9 Hypothyroidism E03.9 Thoracic aortic aneurysm I71.2 Sleep apnea G47.30
[2023-06-09 07:04] LABS: Hematocrit (blood only) 49.9 % (42.0-52.0); Hemoglobin 16.3 g/dl (14.0-18.0); Mean Corpuscular Hemoglobin 29.5 pg (25.0-34.0); Mean Corpuscular Hgb Conc 32.7 g/dL (32.0-36.0); Mean Corpuscular Volume 90.4 fL (80.0-100.0); Mean Platelet Volume 11.4 fL (9.4-12.4); Platelet Count 195 K/uL (130-400); RDW Coefficient of Variation 16.9 % (11.5-14.5); RDW Standard Deviation 55.5 fL (36.4-46.3); Red Blood Count 5.52 M/uL (4.70-6.10); White Blood Count 6.48 K/ul (4.8-10.8)
[2023-06-09 07:31] LABS: BUN Creatinine Ratio 18.1 (10-20); Calcium 8.8 mg/dl (8.6-10.3); Creatinine Clr Calc Pharmacy 32.6 ml/min; Est GFR (African American) 23.2 ml/min; Potassium 4.2 mmol/L (3.5-5.1)
[2023-06-09 10:46] LABS: INR 1.7 (0.9-1.1); Prothrombin Time 18.1 Seconds (9.0-12.0)
--- NOTE | 2023-06-09 13:22 | Nephrology Progress Note ---
Date of Service June 09, 2023 Assessment & Plan (1) DALE (acute kidney injury): Plan: * Non-oliguric * Creatinine stable * Continue to hold diuretic * Low sodium diet and daily fluid restriction encouraged * 06/07/23 Renal US - no hydronephrosis * Expect renal function will improve as inflammation/cellulitis resolves * Oral NaHCO3 may be stopped * Repeat metabolic profile next week * Follow up will be arranged with Dr. German in the outpatient clinic within 2 weeks of discharge * Plan of care was discussed with Dr. Kam this AM (2) Chronic kidney disease, stage III (moderate): Plan: * CKD stage G3b/A3 (moderate impairment). Baseline Cr 1.7-1.9 w/ EGFR 34 cc/min. Benign urine sediment. UPCR 1.0. 11/14 renal US was negative for mass or obstruction. CKD is due to microvascular disease. * Complicated by CRS related to chronic right heart failure * Close outpatient follow up with Dr. German to be arranged at discharge (3) Hyperkalemia: Plan: * Resolved. Continue low K diet (4) Cellulitis of left foot: Plan: * As per ID real estate consultant, plan for doxycycline and levofloxacin on discharge * Monitor weekly CPK level (5) Sleep apnea: Plan: * Encourage compliance w/ CPAP (6) Venous stasis dermatitis of both lower extremities: Plan: * Will need to keep feet, distal legs wrapped when OOB once cellulitis resolves Admission and Anticipated Discharge Date Admission Date: June 04, 2023 Subjective No acute events overnight. Dieudonne feels well this AM. He would like to go home today. Review of Systems Review of Systems: All systems reviewed & are unremarkable except as noted in HPI & below Physical Exam Constitutional: well developed and + morbidly obese; no acute distress Eyes: no scleral abnormality and no corneal abnormality ENMT: Mouth: no oral mucosal abnormality and oral mucous membranes not dry Neck: normal visual inspection and trachea midline Respiratory: normal respiratory effort Auscultation: lungs clear to auscultation bilaterally and + diminished lung sounds Cardiovascular: Rate/Rhythm: + irregularly irregular Heart Sounds: normal S1 and normal S2 Extremities: + edema Musculoskeletal: Extremities: no cyanosis and no clubbing Skin: normal turgor; no jaundice Neurologic: Motor/Sensory: no tremor and no asterixis Psychiatric: Orientation: alert and oriented x 3 Results & Data Vital Signs (Past 12 Hours) Vital Signs Temp Pulse Resp BP Pulse Ox O2 Del Method 06/09/23 07:17 36.3 C L 55 L 16 118/75 97 Room Air Laboratory Results Laboratory Results - last 24 hr 06/09/23 06/09/23 05:47 09:58 WBC 6.48 RBC 5.52 Hgb 16.3 Hct 49.9 MCV 90.4 MCH 29.5 MCHC 32.7 RDW Std Deviation 55.5 H RDW Coeff of [place] 16.9 H Plt Count 195 MPV 11.4 PT 18.1 H INR 1.7 H Sodium 135 L Potassium 4.2 Chloride 105 Carbon Dioxide 24 Anion Gap 6 BUN 52 H Creatinine 2.88 H Est Cr Clr Drug Dosing 32.6 Est GFR ( Amer) 23.2 Est GFR (Non-Af Amer) 20.0 BUN/Creatinine Ratio 18.1 Glucose 88 Calcium 8.8 PG Care Time/CCT Total # of Minutes Spent Total Time Spent with Patient: Total time spent is greater than 50% in coordination of care (as documented) at patient's floor/unit and/or counseling patient: Coding Level of Care Code 68372 SUB INP/OBS CARE 3/50MIN Diagnoses DALE (acute kidney injury) N17.9 Chronic kidney disease, stage III (moderate) N18.3 Hyperkalemia E87.5 Cellulitis of left foot L03.116 Sleep apnea G47.30 Venous stasis dermatitis of both lower extremities I87.2
--- NOTE | 2023-06-09 14:32 | Discharge Summary ---
Discharge Summary Date of Service June 09, 2023 Notes For Next Care Provider Needs Wound Care Center follow up Needs Nephrology f/u with BMP prior Medication Changes From Visit Discontinued lasix Added levaquin 750mg po daily x 1 day Added doxycycline 100mg po bid x 2 more days Admission HPI Per Admitting Provider This patient is a 77-year-old male with history of HTN, HFpEF and right-sided heart failure, CKD stage III, gout, hypothyroidism, OA of the knees, atrial fibrillation on Coumadin, chronic venous stasis dermatitis and lymphedema, DVT while on Xarelto previously, severe DERREK (declines the use of CPAP) who presents to the ER with increasing swelling and redness of the left leg and second and third toes especially over the last 2 weeks with chronic left lower extremity wounds. He denies any fevers or chills. He denies any pain in the leg or foot. The redness in the left leg is not worse but it is slightly worse he thinks in the 2 toes. He was found to have an acute kidney injury but no other evidence of sepsis in the ER. He was given a dose of daptomycin and referred for admission. He denies any fevers or chills, no nausea or vomiting or headaches or lightheadedness. No chest pains or shortness of breath. He was started on furosemide last month-he thinks he was taking this "for redness." Principal Dx & Hospital Course #1 = Principal Diagnosis (1) Toe infection: Cellulitis of left leg,foot and 2nd/3rd toes-- toes more swollen and erythem atous on admission than previous as per patient in addition to chronic erythema from severe venous stasis. No fevers, no leukocytosis and procalcitonin is negative X-rays of the foot and ankle with soft tissue swelling but no evidence of osteomyelitis With significant lymphedema and venous stasis contributing to predisposition to infection Overall appears improved, erythema much improved Given history of Pseudomonas, MRSA,treating with daptomycin and levofloxacin Checked arterial Doppler-diffuse disease left leg but no sig stenosis or occlusion Consult infectious disease-appreciated--> plan for MRI foot if develops open wounds. Otherwise continue same abx w/ Levaquin and Dapto and and convert to po abx in the form of doxycycline and levofloxacin on discharge through 06/10 Consult wound care appreciated-added Lac Hydrin for thickened skin--> a significant amount of skin exfoliation has occurred thus far Started clotrimazole to foot in between toes for suspected fungal infection No fevers Follow blood cultures-remain NGTD Stable for dc to home, arrange outpt Wound Care CLinic, continue compression wraps after infection resolved (2) DALE (acute kidney injury): Likely due to recent addition of furosemide to his medication regimen in setting of right sided heart failure Intravascularly volume depleted despite massive volume overload Baseline creatinine 1.6-1.8 and follows with nephrology Creatinine 2.6 on admission and peaked at 3.0 despite 2L of NS over 2 days, remains nonoliguric. Patent Agent now improved slightly down to 1.88 UA with 2+ blood and 2+ protein with associated hyperkalemia and metabolic acidosis now improved with oral sodium bicarbonate and low potassium diet, Lokelma x 1 Checked renal ultrasound -shows no obstruction, with renal cysts Follow BMP in 1-2 weeks and f/u with Nephrology Discontinued furosemide can now dc NaHCO3 650mg po bid COnsult Nephrology appreciated (3) Hyperkalemia: as above, now resolved w/ sodium bicarb and lokelma continue low potassium diet (4) PAD (peripheral artery disease): Evidenced by diffuse disease without occlusion of left lower extremity on arterial Doppler Start aspirin and continue home statin (5) Venous stasis dermatitis of both lower extremities: Chronic, wears compression wraps Consult wound care appreciated-outpt f/u Continue steroid cream from home given by dermatology Continue Lac Hydrin cream for exfoliation (6) 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: On Coumadin for both atrial fibrillation and history of DVT while on Xarelto in the past INR supratherapeutic on admission and now 1.7 as initially held coumadin for 2 days Continue home doses of Coumadin Follow INR next week (7) Chronic kidney disease, stage III (moderate): With CKD stage III with baseline creatinine 1.8 as above (8) Right-sided heart failure: Declined CPAP Has acute kidney injury with diuretics in the past (9) (HFpEF) heart failure with preserved ejection fraction: Previously reduced EF 40% now improved as per last cardiology note Strict I's and O's, daily weights, low-sodium diet discontinued home Lasix due to renal failure Blood pressure control (10) Hypertension: Blood pressures are fairly well-controlled Continue home metoprolol Discontinued home furosemide (11) Chronic atrial fibrillation: Rates are controlled here Continue home metoprolol continue Coumadin No need to monitor on telemetry (12) Gout: No acute issues Continue allopurinol but renally dose down to 100mg daily (13) Hypothyroidism: TSH normal here at 1.4 Continue home levothyroxine (14) Thoracic aortic aneurysm: 4.3 cm as per last cardiology note, followed as outpatient Blood pressure controlled (15) Sleep apnea: Severe and contributing to right-sided heart failure Patient has a CPAP at home but says he does not want or need to wear it, but now is agreeable to doing so as he knows it will help his heart failure Plan DVT prophylaxis-Coumadin Disposition-dc to home Full code Discharge Exam Constitutional WD/WN, vitals as above + morbidly obese Eyes + anicteric sclerae Neck trachea midline, no thyromegaly Respiratory normal respiratory effort, lungs clear to auscultation Cardiovascular Rate/Rhythm: regular rate and + irregularly irregular Heart Sounds: no murmur Extremities: + edema (3+ edema left leg, 1+ right leg); no calf tenderness Chest (Breasts) Chest: normal inspection of chest Gastrointestinal (Abdomen) normal bowel sounds, soft, nontender, no hepatosplenomegaly Musculoskeletal Extremities: no cyanosis and no clubbing Skin + ulcer (Thickened dry skin with cracks posterior distal leg improved ), + dry skin and + erythema (very mild erythema bilateral legs to the knees much improved) Neurologic moves all extremities and awake; no focal motor deficits Psychiatric A+Ox3, euthymic affect Updated Medication List Medication Instructions Recorded Confirmed Type metoprolol succinate 100 mg 100 mg PO HS ##0 08/07/16 06/04/23 History tablet,extended release 24 hr rosuvastatin 5 mg tablet (Crestor) 5 mg PO QAM 11/21/21 06/04/23 History cholecalciferol (vitamin D3) 25 25 mcg PO QAM 11/22/21 06/04/23 History mcg (1,000 unit) tablet (Vitamin D3) acetaminophen 500 mg tablet 1,000 mg PO BID PRN foot pain 01/16/22 06/04/23 History levothyroxine 175 mcg tablet 175 mcg PO DAILY 02/14/22 06/04/23 History desoximetasone 0.25 % topical 1 applic topical DAILY #100 grams 04/12/23 06/04/23 Rx ointment warfarin 5 mg tablet See Rx Instructions PO UD #112 tabs 04/30/23 06/04/23 Rx allopurinol 100 mg tablet 100 mg PO QAM #30 tabs 06/09/23 Rx ammonium lactate 5 % lotion 1 applic EXT BID apply to legs and 06/09/23 Rx (Lac-Hydrin Five) feet #226 grams aspirin 81 mg tablet,delayed 81 mg PO QAM #30 tabs 06/09/23 Rx release clotrimazole 1 % topical cream 1 applic EXT BID 2 weeks #30 grams 06/09/23 Rx doxycycline hyclate 100 mg tablet 100 mg PO BID #5 tabs 06/09/23 Rx levofloxacin 750 mg tablet 750 mg PO DAILY #1 tab 06/09/23 Rx Hospital Stay Data Consultations 06/04/23 17:09 ED Decision to Admit Stat 06/04/23 21:44 Consult Infectious Diseases Routine 06/05/23 12:58 Consult Nephrology Routine 06/09/23 14:13 Consult [facility] air control electronics operator Routine Diagnostic Imagining Performed 06/05/23 15:02 US arterial duplex LE LT Routine 06/07/23 07:53 US Renal Bladder [US renal/blad retro comp] Urgent Pending Results Patient Have Any Pending Studies at Discharge: Yes (Final blood cultures-no growth to date) Discharge Instructions Given to Patient (Per Discharging Provider) Please finish out 2 more days of the two antibiotics called doxycycline and levofloxacin. Continue to use the Lac-Hydrin lotion twice a day on your legs to help get rid of dry skin. You should also use the clotrimazole cream on your feet and in between your toes for 10 more days. Continue using the kaltostat rope between your toes and follow up with [facility]-this appointment should be arranged for you. It is important to keep your leg compression wraps on and elevates your legs when you are sitting. You do have some peripheral artery disease (plaque buildup) in the arteries in your legs. You were started on a baby aspirin to help keep this from getting worse. Your kidney function is worse than your baseline function but did improve somewhat after admission. You should NOT take the furosemide water pill anymore at home. Please make sure you follow up with Dr. German in 2 weeks-his office should contact you with this appointment date/time. You should have labs drawn prior to that appointment to check your kidney function. Please have your INR checked next week. Total Time Total Time Spent Total Time Spent (In Minutes): 40 min Coding Level of Care Code 86863 INP/OBS DISCH >30 MIN Diagnoses Toe infection L08.9 DALE (acute kidney injury) N17.9 Hyperkalemia E87.5 PAD (peripheral artery disease) I73.9 Venous stasis dermatitis of both lower extremities I87.2 Current use of [facility] anticoagulation Z79.01 Chronic kidney disease, stage III (moderate) N18.3 Right-sided heart failure I50.810 (HFpEF) heart failure with preserved ejection fraction I50.30 Hypertension I10 Chronic atrial fibrillation I48.2 Gout M10.9 Hypothyroidism E03.9 Thoracic aortic aneurysm I71.2 Sleep apnea G47.30
== END 2023-06-09 15:57 | disposition home health service (06) | DRG 638 ==
LOC: ED 14:27 → 3W 18:49

== ENCOUNTER 2023-09-10 08:42 | Inpatient (IN) ==
--- NOTE | 2023-09-10 09:03 | Emergency Department Note ---
Impression & Plan Cellulitis of left leg, Anticoagulated on Coumadin, Chronic atrial fibrillation, Left leg swelling ED Provider Note NAME: ANNAMARIE LARSEN AGE: 77 SEX: M : 1945 ARRIVES VIA: Walk-In INFORMANT: Patient, ED PROVIDER(S): Jacob Conroy MD CHIEF COMPLAINT: Leg swelling MEDICAL DECISION MAKING: Patient presents due to concern for worsening bilateral leg swelling as well as drainage. IV was established and blood work was obtained. The patient was treated with broad-spectrum antibiotics initially which included vancomycin and cefepime which were sensitive to the patient's prior skin culture. Patient's blood work shows a normal white count with a hemoglobin of 10. Platelet count is unremarkable. The patient's kidney function creatinine 2.06. This appears around the patient's baseline. Patient's procalcitonin is not elevated TSH normal. INR is 4.4. Patient results were discussed with the patient. He is comfortable with current plan of care as is the patient's significant other. I did speak the on-call hospitalist service Cooper Mejia PA-C and Dr. Patel and the patient was admitted to the medicine service ultrasounds of both legs. Discussion w/ other healthcare providers: Dr. Patel and Cooper Mejia PA-C inpatient medicine service Prior /Outside records reviewed: I did review a prior wound culture specimen from the light leg from December 2021 which noted MRSA, faecalis and Pseudomonas. I did review a discharge summary from Dr. Middleton from December 29, 2021 history of venous stasis dermatitis of the lower extremities and associated cellulitis left lower extremity. Patient was treated initially with broad-spectrum antibiotics and recommendation was made that presentation is likely not infection but severe stasis dermatitis. Differential diagnosis: Cellulitis, abscess, MRSA infection, DVT, necrotizing fasciitis, dermatitis, drug eruption, allergic reaction, as well as other pathologies were considered. Diagnostics, as interpreted by me: ECG: A-fib, ventricular rate of 54, wide QRS, right bundle branch block pattern. T wave versions inferiorly. No ST elevations. A-fib, right bundle branch block and T wave versions inferiorly appear unchanged from comparison June 04, 2023. Cardiac monitoring: An order was placed for continuous cardiac monitoring. The monitor shows a rate of 79 with sinus rhythm. Patient was placed on pulse oximetry Medical decision rules: None Imaging studies: I informally interpreted the patient's chest x-ray does not show obvious pneumonia or pneumothorax with formal report to follow. HPI: Patient presents with at bedside due to concern for worsening bilateral lower extremity redness and drainage. Reportedly it has been foul- smelling. The patient was recently seen by his line assembly utility worker on the and was advised go to the emergency department at that time but did not do so. The patient significant other bedside was out of state and recently returned and thus brought him here. Patient does have a history of CKD but is not on diuretic therapy due to allergies. Patient has had worsening symptoms the last couple of days. It is worse in the left leg with associated foul-smelling drainage with an occasional yellow tinge. The patient does not complain of significant pain. The patient does have a prior history of clots in the lower extremities and does take Coumadin. The patient's level was checked within the last 1 to 2 weeks and was reportedly elevated at that time. Patient denies any chest pains or shortness of breath no fevers or chills. Patient's does state that she has been doing the wraps at home but feels as though this is getting worse to where she is unable to care for it herself. They currently do not have any wound care as they were discharged from their service several years ago. PAST MEDICAL HISTORY: See Below PAST SURGICAL HISTORY: See Below SOCIAL HISTORY: See Below HOME MEDICATIONS: See Below ALLERGIES: See Below VITALS: See Below PHYSICAL EXAMINATION: GENERAL: NAD, non-toxic. Wearing glasses. EYE EXAM: Normal conjunctiva. PERRL, no anisocoria and EOM's grossly intact w/o pain. OROPHARYNX: Moist mucus membranes, grossly normal dentition. NECK: Trachea midline, no stridor. Supple, no nuchal rigidity, no adenopathy, non-tender. No signs of meningismus. FROM of the neck with good chin to chest and neck extension. LUNGS: Clear to auscultation. Normal chest wall mechanics. HEART: NSR, no MRG. ABDOMEN: Abdomen soft, non-tender, no masses, no rebound or guarding. BACK: No CVA TTP. SKIN: No rashes and no bruising. UPPER EXTREMITIES: Upper extremities are grossly normal. LOWER EXTREMITIES: Left greater than right lower extremity swelling with associated erythema and some foul-smelling drainage from the left leg. Compartments are soft and neurovascular intact. NEURO EXAM: A&O x3, cranial nerves II-XII grossly intact, normal speech, moves all 4 extremities. Past Med/Surg History Problem List Cellulitis of left leg (Acute) Cellulitis of left anterior lower leg History of DVT (deep vein thrombosis) PAD (peripheral artery disease) Toe infection Right-sided heart failure (HFpEF) heart failure with preserved ejection fraction DALE (acute kidney injury) (Acute) Venous stasis dermatitis of both lower extremities Acute venous stasis dermatitis of both legs Lab test negative for COVID-19 virus (Acute) Hypothyroidism Diabetic foot infection Diabetes DALE (acute kidney injury) Cellulitis of left foot (Acute) Vitamin D deficiency Skin tear of right hand without complication (Acute) Venous stasis dermatitis (Acute) Current use of penitentiary anticoagulation (Chronic) Chronic venous insufficiency (Chronic) Cellulitis of foot (Acute) Open wound of foot (Acute) Anticoagulated on Coumadin (Acute) Nonischemic cardiomyopathy Sleep apnea (Chronic) cpap Thoracic aortic aneurysm Hypothyroidism (Acute) Right shoulder strain (Acute) Chest wall contusion (Acute) Left leg swelling (Acute) DVT prophylaxis Abnormal tympanic membrane of right ear Left otitis externa Foreign body of ear, left Aortic valve sclerosis (Acute) Rosacea (Acute) Gout (Chronic) Pressure ulcer of right foot, stage 2 (Acute) Acute retention of urine Hypospadias, penile Anticoagulated on Coumadin (Chronic) Hypertension (Acute) Chronic atrial fibrillation (Chronic) Chronic kidney disease, stage III (moderate) (Chronic) Chronic ulcer of left foot (Chronic) Medical History Venous stasis ulcer Leukocytosis Sepsis History of basal cell carcinoma Penile hypospadias BPH (benign prostatic hyperplasia) Renal cyst On anticoagulant therapy Hearing deficit Prediabetes Obesity Atrial fibrillation, chronic Surgical History History of esophagogastroduodenoscopy (EGD) Family History Other Hearing loss No family history of adverse response to anesthesia No family history of bleeding disorder Denies family history of Heart disease Allergies Cancer Hypertension Stroke Asthma Social History Smoking Status: Former smoker Tobacco Type: Cigarettes packs per day: 1; Second Hand Exposure: No; Do You Dip or Chew Tobacco: No; Hx Alcohol Use: Yes Alcohol type: hard liquor Alcohol Intake Frequency: 2-4 x/Month Alcohol Intake Frequency Comment: 1 bottle of champagne / week Hx Substance Use: No Preferred Language: Brazilian Communication Ability: Effective Communication Ability Comment: [place], does not have h/a here Visual Impairment: Limited Hearing Ability: Hard of Hearing Pneumatic Tester Required: No Beliefs That Will Affect Care: None marital status: Current Living Situation: Family Current Living Situation Comment: lives in 3 story home with and son current occupational status: retired How many Children do You have: 1 How many Children do You have Comment: 3 local, pt independent with care. Feels Safe at Home: Yes Assistive Devices: Cane and Walker Allergies Allergies Allergy/AdvReac Type Severity Reaction Status Date / Time furosemide Allergy Severe Caused Unverified 09/10/23 12:22 issue with kidneys Sulfa (Sulfonamide Allergy Severe Hives, Unverified 09/10/23 12:22 Antibiotics) skin sloughing sulfamethoxazole Allergy Severe Hives, Verified 09/10/23 12:22 [From skin Sulfamethoxazole-Trimethoprim] sloughing trimethoprim Allergy Severe Hives, Verified 09/10/23 12:22 [From skin Sulfamethoxazole-Trimethoprim] sloughing hydrochlorothiazide Allergy Unknown "shut down Verified 09/10/23 12:22 kidneys" Home Meds Home Medications Medication Instructions Recorded Confirmed metoprolol succinate 100 mg 100 mg PO HS ##0 08/07/16 09/10/23 tablet,extended release 24 hr cholecalciferol (vitamin D3) 25 25 mcg PO QAM 11/22/21 09/10/23 mcg (1,000 unit) tablet (Vitamin D3) acetaminophen 500 mg tablet 1,000 mg PO BID PRN foot pain 01/16/22 09/10/23 levothyroxine 175 mcg tablet 175 mcg PO DAILY 02/14/22 09/10/23 rosuvastatin 5 mg tablet 5 mg PO QAM 09/10/23 09/10/23 Previous Rx's Medication Instructions Recorded allopurinol 100 mg tablet 100 mg PO QAM #30 tabs 06/09/23 ammonium lactate 5 % lotion 1 applic EXT BID apply to legs and 06/09/23 (Lac-Hydrin Five) feet #226 grams desoximetasone 0.25 % topical 1 applic topical DAILY #100 grams 08/23/23 ointment warfarin 5 mg tablet See Rx Instructions PO UD #120 tabs 09/04/23 Results & Data (ED) Vital Signs Vital Signs - 24 hr 09/10/23 08:56 09/10/23 10:13 09/10/23 10:15 Temperature 36.3 C L Temperature Source Temporal Artery Scan Pulse Rate 68 59 L Pulse Rate [Apical] Pulse Rhythm Regular Pulse Strength Normal Pulse Strength [Apical] Respiratory Rate 18 Respiratory Effort / Characteristics Non-Labored Spontaneous Respiratory Depth Normal Respiratory Pattern Regular Blood Pressure 142/79 H Blood Pressure [Right Arm] Blood Pressure Mean 100 Blood Pressure Mean [Right Arm] Blood Pressure Position Sitting Pulse Oximetry 97 100 Oxygen Delivery Method Room Air Room Air Sepsis Recent Fever Within 48 Hours No Sepsis New/Unexplained Change in Mental Status No Sepsis Action Taken by Nursing No Action Required 09/10/23 11:17 09/10/23 12:51 09/10/23 13:54 Temperature Temperature Source Pulse Rate Pulse Rate [Apical] 57 L 98 H 60 Pulse Rhythm Pulse Strength Pulse Strength [Apical] Normal Normal Respiratory Rate 19 18 19 Respiratory Effort / Characteristics Non-Labored Spontaneous Non-Labored Spontaneous Non-Labored Spontaneous Respiratory Depth Normal Normal Normal Respiratory Pattern Regular Regular Blood Pressure Blood Pressure [Right Arm] 153/86 H 148/81 H 139/68 Blood Pressure Mean Blood Pressure Mean [Right Arm] 108 103 91 Blood Pressure Position Pulse Oximetry 100 99 100 Oxygen Delivery Method Room Air Room Air Sepsis Recent Fever Within 48 Hours Sepsis New/Unexplained Change in Mental Status Sepsis Action Taken by Nursing 09/10/23 14:15 09/10/23 15:59 Temperature Temperature Source Pulse Rate 71 Pulse Rate [Apical] 79 Pulse Rhythm Pulse Strength Pulse Strength [Apical] Normal Respiratory Rate 18 Respiratory Effort / Characteristics Non-Labored Spontaneous Respiratory Depth Normal Respiratory Pattern Regular Blood Pressure Blood Pressure [Right Arm] 165/96 H Blood Pressure Mean Blood Pressure Mean [Right Arm] 119 Blood Pressure Position Pulse Oximetry 100 Oxygen Delivery Method Room Air Sepsis Recent Fever Within 48 Hours Sepsis New/Unexplained Change in Mental Status Sepsis Action Taken by Skilled Nursing Medications Current Medication List: was personally reviewed by me Laboratory Data Attestation: I reviewed the patient's lab results. 09/10/23 10:39 09/10/23 10:39 Lab Results 09/10/23 Range/Units 10:39 WBC 10.16 (4.8-10.8) K/ul RBC 4.10 L (4.70-6.10) M/uL Hgb 10.3 L (14.0-18.0) g/dl Hct 34.6 L (42.0-52.0) % MCV 84.4 (80.0-100.0) fL MCH 25.1 (25.0-34.0) pg MCHC 29.8 L (32.0-36.0) g/dL RDW Std Deviation 56.7 H (36.4-46.3) fL RDW Coeff of [place] 18.5 H (11.5-14.5) % Plt Count 328 (130-400) K/uL MPV 10.7 (9.4-12.4) fL Immature Gran % (Auto) 0.7 % Neut % (Auto) 77.2 % Lymph % (Auto) 11.5 % Beckham % (Auto) 5.6 % Eos % (Auto) 4.3 % Baso % (Auto) 0.7 % Neut # (Auto) 7.84 H (1.40-6.50) K/uL Lymph # (Auto) 1.17 L (1.20-3.40) K/uL Beckham # (Auto) 0.57 (0.11-0.59) K/uL Eos # (Auto) 0.44 (0.00-0.50) K/uL Baso # (Auto) 0.07 (0.00-0.20) K/uL Immature Gran # (Auto) 0.07 (0.01-0.20) K/uL ESR 120 H (0-20) mm/hr PT 41.5 H (9.0-12.0) Seconds INR 4.4 H (0.9-1.1) APTT 58 H (21-31) Seconds PTT Ratio 2.2 Sodium 137 (136-145) mmol/L Potassium 4.7 (3.5-5.1) mmol/L Chloride 109 H (98-107) mmol/L Carbon Dioxide 22 (21-32) mmol/L Anion Gap 6 (3-11) BUN 33 H (6-23) mg/dl Creatinine 2.06 H (0.6-1.4) mg/dl Est Cr Clr Drug Dosing 45.3 ml/min Est GFR ( Amer) 34.7 ml/min Est GFR (Non-Af Amer) 30.0 ml/min BUN/Creatinine Ratio 16.0 (10-20) Glucose 103 H (70-99(Fasting)) mg/dl Lactate 1.4 (0.4-2.0) mmol/L Calcium 8.7 (8.6-10.3) mg/dl Magnesium 1.8 (1.7-2.4) mg/dl Total Bilirubin 0.3 (0.2-1.0) mg/dl AST 16 (13-39) U/L ALT 11 (7-52) U/L Alkaline Phosphatase 80 (34-104) U/L C-Reactive Protein 4.27 H (0-0.5) mg/dl Total Protein 7.8 (6.0-8.3) gm/dl Albumin 3.6 (3.4-5.0) gm/dl Globulin 4.2 H (2.5-4.0) gm/dl Albumin/Globulin Ratio 0.9 (0.9-2) Procalcitonin 0.07 (0-0.5) ng/ml TSH 1.119 (0.300-4.500) uIu/ml Administered Medications Discontinued Medications Vancomycin HCl 2,750 mg/ (Sodium Chloride) 555 mls @ 200 mls/hr IV NOW ONE Stop: 09/10/23 12:10 Last Infusion: 09/10/23 16:00 Dose: Infused Documented By: Admin: 09/10/23 11:25 Dose: 200 mls/hr Documented By: LUPIS Cefepime HCl (Maxipime) 2,000 mg in 20 mls @ 5 mls/min IV NOW STA; Protocol Stop: 09/10/23 09:44 Last Admin: 09/10/23 11:22 Dose: 5 mls/min Documented By: LUPIS Imaging Data Radiologist's Impression: Chest X-Ray 09/10/23 09:41 XR chest 1V portable CLINICAL HISTORY: weakness TECHNIQUE: Single frontal radiograph of the chest was obtained. Comparison: Comparison is made to chest radiograph 10/30/2022 FINDINGS: No lines and tubes are seen. The cardiomediastinal silhouette is normal. The lungs are clear. No evidence of pleural effusion or pneumothorax. IMPRESSION: No acute chest disease. ACT 112: Negative or not required by law. Electronically signed by: Gideon Monreal M.D. 09/10/2023 10:12 AM Venous Doppler Study 09/10/23 12:36 US venous doppler LE CLINICAL HISTORY: DVT r/o TECHNIQUE: Left lower extremity real-time compression venous ultrasound with Color Doppler imaging. Utilizing real-time ultrasonic imaging multiple real time high-resolution ultrasonic images with compression and noncompression maneuvers of the deep venous system in addition to color doppler imaging were performed from the common femoral vein through the proximal calf veins. COMPARISON: Comparison is made to lower extremity Doppler ultrasound 12/05/2021 FINDINGS/IMPRESSION: Currently there is normal compressibility of the deep venous system from the common femoral vein through the proximal calf veins. No superficial venous thrombosis is identified. ACT 112: Negative or not required by law. Electronically signed by: Gideon Monreal M.D. 09/10/2023 1:31 PM Discharge Plan Visit Data Chief Complaint: Infection, Wound Stated Complaint: LEFT LEG INFECTION , WOUND ED Provider: Jacob Conroy Discharge Problem: Cellulitis of left leg, Anticoagulated on Coumadin, Chronic atrial fibrillation, Left leg swelling Prescriptions Prescriptions: No Action acetaminophen 500 mg tablet 1,000 mg PO BID PRN (Reason: foot pain) levothyroxine 175 mcg tablet 175 mcg PO DAILY warfarin 5 mg tablet See Rx Instructions PO UD Qty: 120 1RF Rx Instructions: 7.5mg q Sa, 5mg x 4 days per [facility] orally use as directed; metoprolol succinate 100 mg Tablet Extended Release 24 Hr 100 mg PO HS Qty: 0 desoximetasone 0.25 % ointment 1 applic topical DAILY Qty: 100 1RF Rx Instructions: Apply to areas of the legs once daily as directed for flaring. cholecalciferol (vitamin D3) [Vitamin D3] 25 mcg (1,000 unit) Tablet 25 mcg PO QAM rosuvastatin 5 mg tablet 5 mg PO QAM allopurinol 100 mg Tablet 100 mg PO QAM Qty: 30 0RF Lac-Hydrin Five 5 % Lotion 1 applic EXT BID Qty: 226 0RF
[2023-09-10] MEDS ORDERED: VANCOMYCIN CONSULT ACTIVE PRN (09:41)
--- NOTE | 2023-09-10 10:14 | XRay Report ---
XR chest 1V portable CLINICAL HISTORY: weakness TECHNIQUE: Single frontal radiograph of the chest was obtained. Comparison: Comparison is made to chest radiograph 10/30/2022 FINDINGS: No lines and tubes are seen. The cardiomediastinal silhouette is normal. The lungs are clear. No evid ence of pleural effusion or pneumothorax. IMPRESSION: No acute chest disease. ACT 112: Negative or not required by law. Electronically signed by: Gideon Monreal M.D. 09/10/2023 10:12 AM
[2023-09-10 11:19] LABS: Basophils # (auto) 0.07 K/uL (0.00-0.20); Basophils % (auto) 0.7 %; Eosinophils # (auto) 0.44 K/uL (0.00-0.50); Eosinophils % (auto) 4.3 %; Hematocrit (blood only) 34.6 % (42.0-52.0); Hemoglobin 10.3 g/dl (14.0-18.0); Immature Granulocytes # (auto) 0.07 K/uL (0.01-0.20); Immature Granulocytes % (auto) 0.7 %; Lymphocytes # (auto) 1.17 K/uL (1.20-3.40); Lymphocytes % (auto) 11.5 %; Mean Corpuscular Hemoglobin 25.1 pg (25.0-34.0); Mean Corpuscular Hgb Conc 29.8 g/dL (32.0-36.0); Mean Corpuscular Volume 84.4 fL (80.0-100.0); Mean Platelet Volume 10.7 fL (9.4-12.4); Monocytes # (auto) 0.57 K/uL (0.11-0.59); Monocytes % (auto) 5.6 %; Neutrophils # (auto) 7.84 K/uL (1.40-6.50); Neutrophils % (auto) 77.2 %; Platelet Count 328 K/uL (130-400); RDW Coefficient of Variation 18.5 % (11.5-14.5); RDW Standard Deviation 56.7 fL (36.4-46.3); White Blood Count 10.16 K/ul (4.8-10.8)
[2023-09-10 11:20] LABS: Albumin Globulin Ratio 0.9 (0.9-2); Albumin Level 3.6 gm/dl (3.4-5.0); Bilirubin,Total 0.3 mg/dl (0.2-1.0); Calcium 8.7 mg/dl (8.6-10.3); Creatinine Clr Calc Pharmacy 45.3 ml/min; Est GFR (African American) 34.7 ml/min; Globulin 4.2 gm/dl (2.5-4.0); Magnesium 1.8 mg/dl (1.7-2.4); Potassium 4.7 mmol/L (3.5-5.1); Total Protein 7.8 gm/dl (6.0-8.3)
[2023-09-10] MEDS: CEFEPIME 2,000 MG/20 ML VIAL IV STA (11:22)
[2023-09-10] MEDS: VANCOMYCIN HCL 2,750 MG in SODIUM CHLORIDE 0.9% 500 ML IV ONE (11:25)
[2023-09-10 11:35] LABS: Thyroid Stimulating Hormone 1.119 uIu/ml (0.300-4.500)
--- NOTE | 2023-09-10 12:11 | History & Physical Report ---
Date of Service September 10, 2023 Assessment & Plan (1) Cellulitis of left anterior lower leg: Plan: LLE infection x 3 weeks, with worsening erythema/swelling/weeping x 1 week Hx of lower extremity infections, as well as DVTs (on warfarin) LLE Doppler ordered, pending No leukocytosis; negative PCT CRP and ESR elevated Daily wound care Wound care nurse evaluations appreciated Daptomycin 425 mg IV q24h given kidney function; hold statin Cefepime 2000 mg IV q8h given history of diabetes; currently diet controlled A.m. CBC, BMP, Mag, PT/INR, CRP (2) History of DVT (deep vein thrombosis): Plan: Hold warfarin for now given supratherapeutic INR 4.4 on arrival Restart pending a.m. PT/INR (3) Diabetes: Plan: Last A1c at 5.8% on 12/23/2021 Diet controlled at home Loose SSI while inpatient with target BSG range 110-140mg/dL, CF 40, carb ratio 15 T2DM diet BSG ACHS Adjust regimen as needed AM A1c (4) Sleep apnea: Plan: Patient reports he does use a CPAP at night, but declines it while inpatient (5) Gout: Plan: Continue allopurinol (6) PAD (peripheral artery disease): (7) Chronic kidney disease, stage III (moderate): (8) Venous stasis dermatitis of both lower extremities: Plan Disposition: Admit to [facility] [place] Full code T2DM diet VTE PPx: Will hold warfarin given INR 4.4 on arrival; trend PT/INR, and restart once within therapeutic range History of Present Illness Chief Complaint: Bilateral lower extremity infection Primary Care Provider: Clovis Yan Bro is a 77-year-old male with PMH of HFpEF, DVT (on warfarin), PAD, venous stasis dermatitis bilaterally, diabetes, diabetic foot infection, cellulitis, pressure ulcers, gout, CKD stage III, chronic atrial fibrillation, and HTN. He presented for a left lower extremity infection x 3 week, with an acute worsening of swelling/erythema/weeping over the past week. He reports that both legs are erythematous and warm to touch, but is worse in the left leg. He has been wrapping the leg twice daily, and applying desoximetasone cream. He has not been on any outpatient antibiotics for this. He took all of his regular morning medications today; no recent change in medications. History of DVTs in both legs, but he reports good compliance with taking his warfarin; last taken the night prior. Patient denies history of smoking, tobacco use. He does endorse alcohol use; bourbon 3 times per week. Patient denies hardware in either of his lower extremities (such as knee replacements or ankle surgeries). He has been on any patient is hypertensive 153/86 at time of admission; vitals otherwise stable. ED course: Vancomycin 2750 mg IV Cefepime 2000 mg IV ROS: Patient endorses itchy/swollen/erythematous lower extremities (left leg worse than right) x 3 weeks. Patient denies fever, chills, night-sweats, rashes, tick bites, headache, dizziness, lightheadedness, chest pain, chest palpitations, cough, SOB, abdominal pain, N/V/D, changes in urinary/bowel habits, dyuria, leg pain, or lower extremity numbness/tingling. Allergies Allergy/AdvReac Type Severity Reaction Status Date / Time furosemide Allergy Severe Caused Unverified 09/10/23 12:22 issue with kidneys Sulfa (Sulfonamide Allergy Severe Hives, Unverified 09/10/23 12:22 Antibiotics) skin sloughing sulfamethoxazole Allergy Severe Hives, Verified 09/10/23 12:22 [From skin Sulfamethoxazole-Trimethoprim] sloughing trimethoprim Allergy Severe Hives, Verified 09/10/23 12:22 [From skin Sulfamethoxazole-Trimethoprim] sloughing hydrochlorothiazide Allergy Unknown "shut down Verified 09/10/23 12:22 kidneys" Home Medications Medication Instructions Recorded Confirmed Type metoprolol succinate 100 mg 100 mg PO HS ##0 08/07/16 09/10/23 History tablet,extended release 24 hr cholecalciferol (vitamin D3) 25 25 mcg PO QAM 11/22/21 09/10/23 History mcg (1,000 unit) tablet (Vitamin D3) acetaminophen 500 mg tablet 1,000 mg PO BID PRN foot pain 01/16/22 09/10/23 History levothyroxine 175 mcg tablet 175 mcg PO DAILY 02/14/22 09/10/23 History allopurinol 100 mg tablet 100 mg PO QAM #30 tabs 06/09/23 09/10/23 Rx ammonium lactate 5 % lotion 1 applic EXT BID apply to legs and 06/09/23 09/10/23 Rx (Lac-Hydrin Five) feet #226 grams desoximetasone 0.25 % topical 1 applic topical DAILY #100 grams 08/23/23 09/10/23 Rx ointment warfarin 5 mg tablet See Rx Instructions PO UD #120 tabs 09/04/23 09/10/23 Rx rosuvastatin 5 mg tablet 5 mg PO QAM 09/10/23 09/10/23 History Past Med/Surg History Problem List (Updated 09/10/23 @ 12:53 by Cooper Mejia PA-C) Cellulitis of left anterior lower leg History of DVT (deep vein thrombosis) PAD (peripheral artery disease) Toe infection Right-sided heart failure (HFpEF) heart failure with preserved ejection fraction DALE (acute kidney injury) (Acute) Venous stasis dermatitis of both lower extremities Acute venous stasis dermatitis of both legs Lab test negative for COVID-19 virus (Acute) Hypothyroidism Diabetic foot infection Diabetes DALE (acute kidney injury) Cellulitis of left foot (Acute) Vitamin D deficiency Skin tear of right hand without complication (Acute) Venous stasis dermatitis (Acute) 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) Chronic venous insufficiency (Chronic) Cellulitis of foot (Acute) Open wound of foot (Acute) Anticoagulated on Coumadin (Acute) Nonischemic cardiomyopathy Sleep apnea (Chronic) cpap Thoracic aortic aneurysm Hypothyroidism (Acute) Right shoulder strain (Acute) Chest wall contusion (Acute) Left leg swelling (Acute) DVT prophylaxis Abnormal tympanic membrane of right ear Left otitis externa Foreign body of ear, left Aortic valve sclerosis (Acute) Rosacea (Acute) Gout (Chronic) Pressure ulcer of right foot, stage 2 (Acute) Acute retention of urine Hypospadias, penile Anticoagulated on Coumadin (Chronic) Hypertension (Acute) Chronic atrial fibrillation (Chronic) Chronic kidney disease, stage III (moderate) (Chronic) Chronic ulcer of left foot (Chronic) Medical History Venous stasis ulcer Leukocytosis Sepsis History of basal cell carcinoma Penile hypospadias BPH (benign prostatic hyperplasia) Renal cyst On anticoagulant therapy Hearing deficit Prediabetes Obesity Atrial fibrillation, chronic Cellulitis of left anterior lower leg Surgical History History of esophagogastroduodenoscopy (EGD) Family History Other Hearing loss No family history of adverse response to anesthesia No family history of bleeding disorder Denies family history of Heart disease Allergies Cancer Hypertension Stroke Asthma Social History Smoking Status: Former smoker Tobacco Type: Cigarettes packs per day: 1; Second Hand Exposure: No; Do You Dip or Chew Tobacco: No; Hx Alcohol Use: Yes Alcohol type: hard liquor Alcohol Intake Frequency: 2-4 x/Month Alcohol Intake Frequency Comment: 1 bottle of champagne / week Hx Substance Use: No Preferred Language: Dominican Communication Ability: Effective Communication Ability Comment: [place], does not have h/a here Visual Impairment: Limited Hearing Ability: Hard of Hearing Herpetologist Required: No Beliefs That Will Affect Care: None marital status: Current Living Situation: Family Current Living Situation Comment: lives in 3 story home with and son current occupational status: retired How many Children do You have: 1 How many Children do You have Comment: 3 local, pt independent with care. Feels Safe at Home: Yes Assistive Devices: Cane and Walker Review of Systems 2 Review of Systems: See HPI above Physical Exam 2 Physical Exam: General: no acute distress; non-toxic appearing; well-nourished; cooperative; SpO2 99% on RA HEENT: normocephalic, atraumatic; no scleral icterus; PERRLA; moist mucus membrane; vision and hearing intact Neck: supple; no lymphadenopathy; trachea midline Skin: warm, dry without signs of tenting; no cyanosis CV: chest wall NTP; RRR; S1/S2 normal; no murmurs/rubs/gallops; pulses intact and symmetric at radial, DP, and PT Lungs: no acute respiratory distress; symmetrical chest wall expansion; clear breath sounds across all lung hodgson w/o adventitious sounds; no wheezing ABD: Soft, NTP; BS present; no rebound/guarding; moderate distention secondary to body habitus LLE: Left lower extremity is edematous/erythematous/weeping with nonpitting edema extending up to the mid calf (see photo below); warm to touch; malodorous RLE: Erythematous, but not swollen or weeping; not warm to touch MSK: no tics or fasciculations Neuro: A&Ox3; normal mood and affect; fluent speech; no focal deficits; sensation intact in the LEs b/l assessed via light touch Results & Data Results & Data Vital Signs (Past 12 Hours) Vital Signs Temp Pulse Pulse Resp BP BP Pulse Ox 09/10/23 11:17 57 L 19 153/86 H 100 09/10/23 10:15 59 L 09/10/23 10:13 100 09/10/23 08:56 36.3 C L 68 18 142/79 H 97 O2 Del Method 09/10/23 11:17 Room Air 09/10/23 10:15 09/10/23 10:13 Room Air 09/10/23 08:56 Room Air Laboratory Results Abnormal lab results 09/10/23 Range/Units 10:39 RBC 4.10 L (4.70-6.10) M/uL Hgb 10.3 L (14.0-18.0) g/dl Hct 34.6 L (42.0-52.0) % MCHC 29.8 L (32.0-36.0) g/dL RDW Std Deviation 56.7 H (36.4-46.3) fL RDW Coeff of [place] 18.5 H (11.5-14.5) % Neut # (Auto) 7.84 H (1.40-6.50) K/uL Lymph # (Auto) 1.17 L (1.20-3.40) K/uL Chloride 109 H (98-107) mmol/L BUN 33 H (6-23) mg/dl Creatinine 2.06 H (0.6-1.4) mg/dl Glucose 103 H (70-99(Fasting)) mg/dl Globulin 4.2 H (2.5-4.0) gm/dl Diagnostic Findings Chest X-Ray 09/10/23 09:41 XR chest 1V portable CLINICAL HISTORY: weakness TECHNIQUE: Single frontal radiograph of the chest was obtained. Comparison: Comparison is made to chest radiograph 10/30/2022 FINDINGS: No lines and tubes are seen. The cardiomediastinal silhouette is normal. The lungs are clear. No evidence of pleural effusion or pneumothorax. IMPRESSION: No acute chest disease. ACT 112: Negative or not required by law. Electronically signed by: Gideon Monreal M.D. 09/10/2023 10:12 AM Code Status & VTE Plan Code Status Full code VTE Prophylaxis Plan VTE Prophylaxis will be ordered: Yes Supervising Physician Co-Signing Physician Notes I have personally seen, evaluated and examined the patient. I have also personally discussed the management of the patient with the resident physician/RAMU and I agree with the exam findings documented in the history and physical examination and the documented assessment and plan unless otherwise stated below. 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 HEENT: Normocephalic atraumatic. Heart: Regular at this time appreciate no murmur Lungs: are diminished due to body habitus but essentially clear. Abdomen: Is obese soft and nontender, no organomegaly or abdominal bruits. Extremities: Bilateral edema is present the left significantly worse than right as pictured above. With erythema and weeping edema. Of the left lower extremity. Ultrasound of this extremity is pending. Both lower extremities are warm to touch. Pulses are thready bilaterally due to his edema. But appears to be perfusing fine bilaterally. Assessment/plan: As discussed above. Please refer to orders for further planning. Wound care has been consulted. Wound cultures. Blood spectrum IV antibiotic therapy in the form of daptomycin and cefepime for now. Hold Coumadin for now given the supratherapeutic INR. Do daily INR's and reintroduce Coumadin therapy when appropriate. PG Care Time/CCT Total # of Minutes Spent Total Time Spent with Patient: Total time spent is greater than 50% in coordination of care (as documented) at patient's floor/unit and/or counseling patient: C[place] [address] INT INP/OBS CARE 3/75MIN Patient Type Established Medical Decision Making Moderate Complexity Diagnoses Cellulitis of left anterior lower leg L03.116 History of DVT (deep vein thrombosis) Z86.718 Diabetes E11.9 Sleep apnea G47.30 Gout M10.9 PAD (peripheral artery disease) I73.9 Chronic kidney disease, stage III (moderate) N18.3 Venous stasis dermatitis of both lower extremities I87.2
[2023-09-10 12:38] LABS: C Reactive Protein 4.27 mg/dl (0-0.5); INR 4.4 (0.9-1.1); Partial Thromboplastin Ratio 2.2; Partial Thromboplastin Time 58 Seconds (21-31); Prothrombin Time 41.5 Seconds (9.0-12.0)
--- NOTE | 2023-09-10 13:33 | Ultrasound Report ---
US venous doppler LE LT CLINICAL HISTORY: DVT r/o TECHNIQUE: Left lower extremity real-time compression venous ultrasound with Color Doppler imaging. U tilizing real-time ultrasonic imaging multiple real time high-resolution ultrasonic images with compr ession and noncompression maneuvers of the deep venous system in addition to color doppler imaging we re performed from the common femoral vein through the proximal calf veins. COMPARISON: Comparison is made to lower extremity Doppler ultrasound 12/05/2021 FINDINGS/IMPRESSION: Currently there is normal compressibility of the deep venous system from the common femoral vein thro ugh the proximal calf veins. No superficial venous thrombosis is identified. ACT 112: Negative or not required by law. Electronically signed by: Gideon Monreal M.D. 09/10/2023 1:31 PM
[2023-09-10] MEDS ORDERED: GLUCOSE 10 TAB/TUBE PO PRN ×2 (14:20→17:39)
[2023-09-10] MEDS ORDERED: DEXTROSE 50% 50 ML SYRINGE IV PRN ×2 (14:20→17:39)
[2023-09-10] MEDS ORDERED: GLUCAGON FOR INJ 1 MG VIAL SQ PRN ×2 (14:20→17:39)
[2023-09-10] MEDS ORDERED: GLUCOSE 40% GEL 15 GM TUBE PO PRN ×2 (14:20→17:39)
[2023-09-10] MEDS ORDERED: CARBOHYDRATES FOR HYPOGLYCEMIA PO PRN ×2 (14:20→17:39)
[2023-09-10 16:52] LABS: Appearance Urine Cloudy (Clear); Bacteria Urine Automated None Seen (None Seen); Bilirubin Urine Negative (Negative); Blood Urine 2+ (Negative); Calcium Oxalate Crystals Urine Present (None Prsent); Color Urine Yellow; Epithelial Cell Urine Auto 0-2 /hpf (0-2); Glucose Urine UA Negative (Negative); Ketones Urine Negative (Negative); Leukocyte Esterase Urine 1+ (Negative); Nitrite Urine Negative (Negative); Protein Urine 2+ (Negative); Specific Gravity Urine 1.019 (1.000-1.030); Urobilinogen Urine Negative (Negative)
[2023-09-10] MEDS ORDERED: ACETAMINOPHEN 325 MG TAB PO PRN (17:39)
[2023-09-10] MEDS ORDERED: MELATONIN 3 MG TAB PO PRN (17:39)
[2023-09-10] MEDS: INSULIN ASPART PER UNIT CHARGE SC SCH ×2 (17:54→18:35)
[2023-09-10] MEDS: AMMONIUM LACTATE 12% LOTION 225 GM BTL EXT SCH (19:59)
[2023-09-10] MEDS: METOPROLOL SUCC 50MG EXT REL TAB PO SCH (20:52)
[2023-09-10] MEDS: CEFEPIME 2,000 MG in SYRINGE 0 ML IV SCH (22:58)
[2023-09-11] MEDS: allopurinoL 100 MG TAB PO SCH (08:25)
[2023-09-11] MEDS: LEVOTHYROXINE SODIUM 175 MCG TABLET PO SCH (08:25)
[2023-09-11 09:26] LABS: Basophils # (auto) 0.06 K/uL (0.00-0.20); Basophils % (auto) 0.5 %; Eosinophils # (auto) 0.59 K/uL (0.00-0.50); Eosinophils % (auto) 4.8 %; Hematocrit (blood only) 33.9 % (42.0-52.0); Hemoglobin 10.2 g/dl (14.0-18.0); Immature Granulocytes # (auto) 0.05 K/uL (0.01-0.20); Immature Granulocytes % (auto) 0.4 %; Lymphocytes # (auto) 0.67 K/uL (1.20-3.40); Lymphocytes % (auto) 5.4 %; Mean Corpuscular Hemoglobin 24.9 pg (25.0-34.0); Mean Corpuscular Hgb Conc 30.1 g/dL (32.0-36.0); Mean Corpuscular Volume 82.7 fL (80.0-100.0); Monocytes # (auto) 0.58 K/uL (0.11-0.59); Monocytes % (auto) 4.7 %; Neutrophils # (auto) 10.47 K/uL (1.40-6.50); Neutrophils % (auto) 84.2 %; Platelet Count 301 K/uL (130-400); RDW Coefficient of Variation 18.6 % (11.5-14.5); RDW Standard Deviation 56.1 fL (36.4-46.3); White Blood Count 12.42 K/ul (4.8-10.8)
[2023-09-11 09:30] LABS: Estimated Average Glucose 108 mg/dl; Hemoglobin A1C 5.4 % (4.5-5.6)
[2023-09-11 09:44] LABS: BUN Creatinine Ratio 16.1 (10-20); C Reactive Protein 3.84 mg/dl (0-0.5); Calcium 8.5 mg/dl (8.6-10.3); Creatinine Clr Calc Pharmacy 50.1 ml/min; Est GFR (African American) 39.3 ml/min; Est GFR (Non-African American) 33.9 ml/min; Magnesium 1.6 mg/dl (1.7-2.4); Potassium 4.6 mmol/L (3.5-5.1)
[2023-09-11 09:52] LABS: INR 3.3 (0.9-1.1); Prothrombin Time 32.6 Seconds (9.0-12.0)
[2023-09-11] MEDS: DAPTOmycin 425 MG in SYRINGE 0 ML IV SCH (11:44)
--- NOTE | 2023-09-11 12:33 | Electrocardiogram Report ---
Test Reason : Blood Pressure : / mmHG Vent. Rate : 054 BPM Atrial Rate : 000 BPM P-R Int : 000 ms QRS Dur : 144 ms QT Int : 444 ms P-R-T Axes : 000 007 -15 degrees QTc Int : 421 ms Atrial fibrillation with slow ventricular response Right bundle branch block T wave abnormality, consider inferior ischemia Abnormal ECG When compared with ECG of 04-JUN-2023 14:36, QT has shortened Confirmed by Kane Garza ([id number]) on 09/11/2023 12:33:08 PM Referred By: Clovis Heredia Confirmed By:Kane Garza
--- NOTE | 2023-09-11 13:40 | Hospitalist Progress Note ---
Date of Service September 11, 2023 Assessment & Plan (1) Cellulitis of left anterior lower leg: Plan: LLE infection x 3 weeks, with worsening erythema/swelling/weeping x 1 week Hx of lower extremity infections, as well as DVTs (on warfarin) LLE Doppler - no DVT Elevate LLE Continue daptomycin + cefepime, follow up blood cultures (2) History of DVT (deep vein thrombosis): Plan: Restart warfarin @ 5mg PO daily (usually on 7.5mg Sunday, , Sunday, Sunday, 5mg all other days) Repeat INR in AM (3) Diabetes: Plan: HbA1C 5.4 This appears to be a historical diagnosis - will d/c BSG and insulin (4) Sleep apnea: Plan: Patient reports he does use a CPAP at night, but declines it while inpatient (5) Gout: Plan: Continue allopurinol (6) PAD (peripheral artery disease): (7) Chronic kidney disease, stage III (moderate): (8) Venous stasis dermatitis of both lower extremities: (9) Dyshidrotic eczema: Plan: Clobetasol cream HS Suspect this is the cause of his diffuse rash Plan VTE Prophylaxis - warfarin Diet - heart healthy Disposition - continued admission on med/surg Admission and Anticipated Discharge Date Admission Date: September 10, 2023 Subjective No fever, chills, no significant change in leg swelling and erythema. He reports recurrent infections. Diffuse macular papular rash over his body he notes is chronic. Review of Systems Review of Systems: All systems reviewed & are unremarkable except as noted in HPI & below Physical Exam Constitutional: WD/WN, vitals as above Respiratory: normal respiratory effort, lungs clear to auscultation Cardiovascular: Rate/Rhythm: regular rate and regular rhythm Heart Sounds: no murmur Extremities: + pedal edema Gastrointestinal (Abdomen): normal bowel sounds, soft, nontender, no hepatosplenomegaly Skin: diffuse macular papular rash over all 4 extremities and torso (pt reports chronic, not related to current antibiotics) erythema, swelling left lower extremity from mid wood to toes Results & Data Results & Data Vital Signs (Past 12 Hours) Vital Signs Temp Pulse Resp BP Pulse Ox O2 Del Method 09/11/23 08:07 36.5 C 74 18 154/92 H 100 Room Air PG Care Time/CCT Total # of Minutes Spent Total Time Spent with Patient: Total time spent is greater than 50% in coordination of care (as documented) at patient's floor/unit and/or counseling patient: Coding Level of Care Code 59056 SUB INP/OBS CARE 2/35MIN Diagnoses Cellulitis of left anterior lower leg L03.116 History of DVT (deep vein thrombosis) Z86.718 Diabetes E11.9 Sleep apnea G47.30 Gout M10.9 PAD (peripheral artery disease) I73.9 Chronic kidney disease, stage III (moderate) N18.3 Venous stasis dermatitis of both lower extremities I87.2 Dyshidrotic eczema L30.1
[2023-09-11] MEDS: MAGNESIUM SULFATE / D5W 1 GM/100 ML BAG IV SCH (14:36)
[2023-09-11] MEDS: WARFARIN SOD 5 MG TAB PO SCH (16:24)
[2023-09-11] MEDS: CLOBETASOL PROPIONATE 0.05% CREAM 15 GM TUBE EXT SCH (22:08)
[2023-09-12 07:50] LABS: Basophils # (auto) 0.05 K/uL (0.00-0.20); Basophils % (auto) 0.5 %; Eosinophils # (auto) 0.78 K/uL (0.00-0.50); Eosinophils % (auto) 7.1 %; Hematocrit (blood only) 34.7 % (42.0-52.0); Hemoglobin 10.6 g/dl (14.0-18.0); Immature Granulocytes # (auto) 0.08 K/uL (0.01-0.20); Immature Granulocytes % (auto) 0.7 %; Lymphocytes # (auto) 0.87 K/uL (1.20-3.40); Lymphocytes % (auto) 7.9 %; Mean Corpuscular Hemoglobin 25.4 pg (25.0-34.0); Mean Corpuscular Hgb Conc 30.5 g/dL (32.0-36.0); Mean Platelet Volume 11.1 fL (9.4-12.4); Monocytes # (auto) 0.49 K/uL (0.11-0.59); Monocytes % (auto) 4.5 %; Neutrophils % (auto) 79.3 %; Platelet Count 324 K/uL (130-400); RDW Coefficient of Variation 18.8 % (11.5-14.5); RDW Standard Deviation 57.1 fL (36.4-46.3); Red Blood Count 4.18 M/uL (4.70-6.10); White Blood Count 10.97 K/ul (4.8-10.8)
[2023-09-12 08:13] LABS: BUN Creatinine Ratio 15.8 (10-20); C Reactive Protein 6.2 mg/dl (0-0.5); Calcium 8.4 mg/dl (8.6-10.3); Creatinine Clr Calc Pharmacy 43.4 ml/min; Est GFR (Non-African American) 28.4 ml/min; Magnesium 1.9 mg/dl (1.7-2.4); Potassium 4.5 mmol/L (3.5-5.1)
[2023-09-12 08:23] LABS: INR 2.6 (0.9-1.1); Prothrombin Time 25.6 Seconds (9.0-12.0)
--- NOTE | 2023-09-12 12:05 | Hospitalist Progress Note ---
Date of Service September 12, 2023 Assessment & Plan (1) Cellulitis of left anterior lower leg: Plan: Patient presents to the hospital on account of worsening lower extremity redness and swelling which started 3 weeks prior, failed outpatient mgt LLE Doppler - no DVT Blood cultures obtained, wound cultures as well Empirically started on IV Cefepime and Daptomycin Will continue wound care Elevate LLE Monitor inflammatory markers (2) History of DVT (deep vein thrombosis): Plan: Restart warfarin @ 5mg PO daily (usually on 7.5mg Sunday, , Sunday, Sunday, 5mg all other days) INR 2.6 today Repeat INR in AM (3) Diabetes: Plan: HbA1C 5.4 This appears to be a historical diagnosis - will d/c BSG and insulin (4) Sleep apnea: Plan: Patient reports he does use a CPAP at night, but declines it while inpatient (5) Gout: Plan: Continue allopurinol (6) PAD (peripheral artery disease): (7) Chronic kidney disease, stage III (moderate): Plan: monitor (8) Venous stasis dermatitis of both lower extremities: (9) Dyshidrotic eczema: Plan: Clobetasol cream HS Suspect this is the cause of his diffuse rash Plan VTE Prophylaxis - warfarin Diet - heart healthy Disposition - continued admission on med/surg Admission and Anticipated Discharge Date Admission Date: September 10, 2023 Subjective patient seen and examined, lying quietly in bed, denies fevers or chills Review of Systems Review of Systems: All systems reviewed are negative, apart from the ones contained in the history. Physical Exam Physical Exam: The patient is awake, alert and oriented 3, well developed and well nourished, normocephalic and atraumatic, lying in bed and in no acute distress. HEENT--PERRL, EOMI, mucous membranes and oropharynx mildly dry Neck--supple. No JVD. No bruits. Thyroid normal, trachea midline, no adenopathy. Heart--normal S1 and S2. No murmurs, rubs or gallops. Lungs--clear bilaterally, no respiratory distress, no accessory muscle use. Abdomen--normal bowel sounds and soft. Extremities--leg edema, area of redness and cellulitis Dermatologic-dry,flaky skin, normal turgor, red Neurologic--cranial nerves II through XII grossly intact. Rheumatologic--normal range of motion. Psychiatric--normal affect. Results & Data Results & Data Vital Signs (Past 12 Hours) Vital Signs Temp Pulse Resp BP Pulse Ox O2 Del Method 09/12/23 07:12 97.9 F 76 16 110/70 97 Room Air PG Care Time/CCT Total # of Minutes Spent Total Time Spent with Patient: Total time spent is greater than 50% in coordination of care (as documented) at patient's floor/unit and/or counseling patient: Coding Level of Care Code 30454 SUB INP/OBS CARE 2/35MIN Diagnoses Cellulitis of left anterior lower leg L03.116 History of DVT (deep vein thrombosis) Z86.718 Diabetes E11.9 Sleep apnea G47.30 Gout M10.9 PAD (peripheral artery disease) I73.9 Chronic kidney disease, stage III (moderate) N18.3 Venous stasis dermatitis of both lower extremities I87.2 Dyshidrotic eczema L30.1 Time Spent (min) 35
[2023-09-13 06:45] LABS: Basophils # (auto) 0.05 K/uL (0.00-0.20); Basophils % (auto) 0.5 %; Eosinophils # (auto) 0.68 K/uL (0.00-0.50); Eosinophils % (auto) 7.4 %; Hematocrit (blood only) 32.2 % (42.0-52.0); Hemoglobin 9.7 g/dl (14.0-18.0); Immature Granulocytes # (auto) 0.07 K/uL (0.01-0.20); Immature Granulocytes % (auto) 0.8 %; Lymphocytes % (auto) 9.8 %; Mean Corpuscular Hemoglobin 24.8 pg (25.0-34.0); Mean Corpuscular Hgb Conc 30.1 g/dL (32.0-36.0); Mean Corpuscular Volume 82.4 fL (80.0-100.0); Mean Platelet Volume 10.5 fL (9.4-12.4); Monocytes # (auto) 0.51 K/uL (0.11-0.59); Monocytes % (auto) 5.5 %; Platelet Count 304 K/uL (130-400); RDW Coefficient of Variation 18.9 % (11.5-14.5); RDW Standard Deviation 56.6 fL (36.4-46.3); Red Blood Count 3.91 M/uL (4.70-6.10); White Blood Count 9.21 K/ul (4.8-10.8)
[2023-09-13 07:01] LABS: BUN Creatinine Ratio 15.6 (10-20); C Reactive Protein 4.49 mg/dl (0-0.5); Calcium 8.2 mg/dl (8.6-10.3); Creatinine Clr Calc Pharmacy 44.2 ml/min; Est GFR (African American) 33.7 ml/min; Est GFR (Non-African American) 29.1 ml/min; Potassium 4.5 mmol/L (3.5-5.1)
[2023-09-13 07:09] LABS: INR 2.3 (0.9-1.1); Prothrombin Time 23.4 Seconds (9.0-12.0)
--- NOTE | 2023-09-13 09:44 | Hospitalist Progress Note ---
Date of Service September 13, 2023 Assessment & Plan (1) Cellulitis of left anterior lower leg: Plan: Patient presents to the hospital on account of worsening lower extremity redness and swelling which started 3 weeks prior, failed outpatient mgt LLE Doppler - no DVT Blood cultures obtained, wound cultures as well Empirically started on IV Cefepime and Daptomycin Will continue wound care Elevate LLE Monitor inflammatory markers, Which are improving (2) History of DVT (deep vein thrombosis): Plan: Restart warfarin @ 5mg PO daily (usually on 7.5mg Sunday, , Sunday, Sunday, 5mg all other days) INR 2.5 today Repeat INR in AM (3) Diabetes: Plan: HbA1C 5.4 Blood glucose has been under good control (4) Sleep apnea: Plan: Patient reports he does use a CPAP at night, but declines it while inpatient (5) Gout: Plan: Continue allopurinol (6) PAD (peripheral artery disease): (7) Chronic kidney disease, stage III (moderate): Plan: monitor Avoid nephrotoxics (8) Venous stasis dermatitis of both lower extremities: (9) Dyshidrotic eczema: Plan: Clobetasol cream HS Suspect this is the cause of his diffuse rash Plan VTE Prophylaxis - warfarin Diet - heart healthy Disposition - continued admission on med/surg Admission and Anticipated Discharge Date Admission Date: September 10, 2023 Subjective patient seen and examined, lying quietly in bed, denies fevers or chills, Tolerating diet Review of Systems Review of Systems: All systems reviewed are negative, apart from the ones contained in the history. Physical Exam Physical Exam: The patient is awake, alert and oriented 3, well developed and well nourished, normocephalic and atraumatic, lying in bed and in no acute distress. HEENT--PERRL, EOMI, mucous membranes and oropharynx mildly dry Neck--supple. No JVD. No bruits. Thyroid normal, trachea midline, no adenopathy. Heart--normal S1 and S2. No murmurs, rubs or gallops. Lungs--clear bilaterally, no respiratory distress, no accessory muscle use. Abdomen--normal bowel sounds and soft. Extremities--leg edema, area of redness and cellulitis Dermatologic-dry,flaky skin, normal turgor, red Neurologic--cranial nerves II through XII grossly intact. Rheumatologic--normal range of motion. Psychiatric--normal affect. Results & Data Results & Data Vital Signs (Past 12 Hours) Vital Signs Temp Pulse Resp BP Pulse Ox O2 Del Method 09/13/23 07:56 97.9 F 72 18 146/84 H 96 Room Air 09/12/23 22:13 98.1 F 58 L 18 124/57 L 98 Room Air PG Care Time/CCT Total # of Minutes Spent Total Time Spent with Patient: Total time spent is greater than 50% in coordination of care (as documented) at patient's floor/unit and/or counseling patient: Coding Level of Care Code 76172 SUB INP/OBS CARE 2/35MIN Diagnoses Cellulitis of left anterior lower leg L03.116 History of DVT (deep vein thrombosis) Z86.718 Diabetes E11.9 Sleep apnea G47.30 Gout M10.9 PAD (peripheral artery disease) I73.9 Chronic kidney disease, stage III (moderate) N18.3 Venous stasis dermatitis of both lower extremities I87.2 Dyshidrotic eczema L30.1 Time Spent (min) 35
[2023-09-14 09:48] LABS: BUN Creatinine Ratio 17.4 (10-20); Calcium 8.4 mg/dl (8.6-10.3); Creatinine Clr Calc Pharmacy 47.8 ml/min; Est GFR (African American) 37.1 ml/min; Hematocrit (blood only) 32.8 % (42.0-52.0); Hemoglobin 9.8 g/dl (14.0-18.0); Mean Corpuscular Hemoglobin 24.4 pg (25.0-34.0); Mean Corpuscular Hgb Conc 29.9 g/dL (32.0-36.0); Mean Corpuscular Volume 81.8 fL (80.0-100.0); Mean Platelet Volume 10.3 fL (9.4-12.4); Platelet Count 307 K/uL (130-400); Potassium 4.6 mmol/L (3.5-5.1); RDW Coefficient of Variation 18.8 % (11.5-14.5); RDW Standard Deviation 56.4 fL (36.4-46.3); Red Blood Count 4.01 M/uL (4.70-6.10)
[2023-09-14 09:59] LABS: Prothrombin Time 20.3 Seconds (9.0-12.0)
--- NOTE | 2023-09-14 11:08 | Hospitalist Progress Note ---
Date of Service September 14, 2023 Assessment & Plan (1) Cellulitis of left anterior lower leg: Plan: Patient presents to the hospital on account of worsening lower extremity redness and swelling which started 3 weeks prior, failed outpatient mgt LLE Doppler - no DVT Blood cultures obtained, wound cultures as well Empirically started on IV Cefepime and Daptomycin Will continue wound care Elevate LLE Monitor inflammatory markers, Which are improving (2) History of DVT (deep vein thrombosis): Plan: Restart warfarin @ 5mg PO daily (usually on 7.5mg Sunday, , Sunday, Sunday, 5mg all other days) INR 2.0 today Repeat INR in AM (3) Diabetes: Plan: HbA1C 5.4 Blood glucose has been under good control (4) Sleep apnea: Plan: Patient reports he does use a CPAP at night, but declines it while inpatient (5) Gout: Plan: Continue allopurinol (6) PAD (peripheral artery disease): (7) Chronic kidney disease, stage III (moderate): Plan: monitor Avoid nephrotoxics (8) Venous stasis dermatitis of both lower extremities: (9) Dyshidrotic eczema: Plan: Clobetasol cream HS Suspect this is the cause of his diffuse rash Plan VTE Prophylaxis - warfarin Diet - heart healthy Disposition - Awaiting evaluation by PT, patient may need rehab eventually after discharge Admission and Anticipated Discharge Date Admission Date: September 10, 2023 Subjective patient seen and examined, lying quietly in bed, denies fevers or chills, Tolerating diet Review of Systems Review of Systems: All systems reviewed are negative, apart from the ones contained in the history. Physical Exam Physical Exam: The patient is awake, alert and oriented 3, well developed and well nourished, normocephalic and atraumatic, lying in bed and in no acute distress. HEENT--PERRL, EOMI, mucous membranes and oropharynx mildly dry Neck--supple. No JVD. No bruits. Thyroid normal, trachea midline, no adenopathy. Heart--normal S1 and S2. No murmurs, rubs or gallops. Lungs--clear bilaterally, no respiratory distress, no accessory muscle use. Abdomen--normal bowel sounds and soft. Extremities--leg edema, area of redness and cellulitis Dermatologic-dry,flaky skin, normal turgor, red Neurologic--cranial nerves II through XII grossly intact. Rheumatologic--normal range of motion. Psychiatric--normal affect. Results & Data Results & Data Vital Signs (Past 12 Hours) Vital Signs Temp Pulse Resp BP Pulse Ox O2 Del Method 09/14/23 08:17 97.9 F 69 20 130/85 99 Room Air PG Care Time/CCT Total # of Minutes Spent Total Time Spent with Patient: Total time spent is greater than 50% in coordination of care (as documented) at patient's floor/unit and/or counseling patient: Coding Level of Care Code 07392 SUB INP/OBS CARE 2/35MIN Diagnoses Cellulitis of left anterior lower leg L03.116 History of DVT (deep vein thrombosis) Z86.718 Diabetes E11.9 Sleep apnea G47.30 Gout M10.9 PAD (peripheral artery disease) I73.9 Chronic kidney disease, stage III (moderate) N18.3 Venous stasis dermatitis of both lower extremities I87.2 Dyshidrotic eczema L30.1 Time Spent (min) 35
--- NOTE | 2023-09-14 16:51 | Infectious Disease Consult ---
Date of Consultation September 14, 2023 Assessment & Plan (1) Cellulitis of left leg: (2) Diabetes: (3) Chronic kidney disease, stage III (moderate): Plan 77yo M with h/o HFpEF and right sided HF, CKD III, gout, hypothyroidism, OA of knees, afib on coumadin, chronic venous stasis, dermatitis and lymphedema, DVT, severe DERREK, recurrent cellulitis of L leg (prior tx with dapto/ceftazidime 11/2021, then dapto/meropenem 12/2021 but abx stopped as derm felt it was stasis dermatitis and leg appearance unchanged from prior visits), admission in 05/2023 with cellulitis of left toes s/p dapto/levofloxacin x 5-7d) who presented on 09/09 with worsening swelling, redness, weeping of left lower extremity for 3 weeks with acute worsening x 1wk. Here he has been afebrile, vss. WBC 10.16, Cr 2.06, LFT wnl. ESR 120, CRP 4.27. PCT neg. UA with 11-20 WBC. CXR neg. LLE doppler negative for DVT. He has been getting daptomycin and cefepime. ID consulted 09/13. Per primary team, legs clinically improving on current regimen despite inadequate Alcaligenes coverage. A faecalis is an environmental organism and may likely be nonpathogenic in current case, especially given superficial wound cultures. Will target therapy towards MRSA as the likely pathogen here and continue on daptomycin, stop cefepime. Unfortunately, MRSA is resistant to all PO options and will have to complete therapy with IV abx. No open wounds on images uploaded by wound care. # LLE cellulitis # CKD III # Chronic venous stasis # Prior h/o recurrent LLE cellulitis - continue on daptomycin 4-6mg/kg IV q24h - Thi stopped cefepime - monitor clinically on monotherapy - if any clinical worsening of legs, then add Bactrim for A faecalis - plan for 7-10 days of abx for cellulitis (no PO options for MRSA) - no statins while on daptomycin - Thi added CPK for monitoring ID will continue to follow. If questions or concerns, contact Infectious Disease Call Center . Teresa Larios MD [facility], Division of Infectious Diseases [facility]: [phone] Consultation Information This patient recommendation is based on a telemedicine consult request which was completed asynchronously through chart review and information provided by the primary physician. The patient was not seen or examined today. The evaluation is consultative in nature and all patient care and treatment decisions can either be accepted or rejected by the patient's primary hospital-based treating physician using their own independent medical judgment for their patient. Documentation Improvement Specialist contact information: Please call ID Connect Call Center . (Phone Number For Physician Use Only) Time Spent Reviewing Chart: 31+ minutes History of Present Illness Reason for Consultation: cellulitis Attending Physician: Hilaria Rene MD History of Present Illness 77yo M with h/o HFpEF and right sided HF, CKD III, gout, hypothyroidism, OA of knees, afib on coumadin, chronic venous stasis, dermatitis and lymphedema, DVT, severe DERREK, recurrent cellulitis of L leg (prior tx with dapto/ceftazidime 11/2021, then dapto/meropenem 12/2021 but abx stopped as derm felt it was stasis dermatitis and leg appearance unchanged from prior visits), admission in 05/2023 with cellulitis of left toes s/p dapto/levofloxacin x 5-7d) who presented on 09/09 with worsening swelling, redness, weeping of left lower extremity for 3 weeks with acute worsening x 1wk. He reported both legs were red and warm, but left leg was worse. He had been wrapping legs twice daily. Not been on any outpatient antibiotics. No hardware in legs. Here he has been afebrile, vss. WBC 10.16, Cr 2.06, LFT wnl. ESR 120, CRP 4.27. PCT neg. UA with 11-20 WBC. CXR neg. LLE doppler negative for DVT. He has been getting daptomycin and cefepime. ID consulted 09/13. Allergies Allergy/AdvReac Type Severity Reaction Status Date / Time furosemide Allergy Severe Caused Unverified 09/10/23 12:22 issue with kidneys Sulfa (Sulfonamide Allergy Severe Hives, Unverified 09/10/23 12:22 Antibiotics) skin sloughing sulfamethoxazole Allergy Severe Hives, Verified 09/10/23 12:22 [From skin Sulfamethoxazole-Trimethoprim] sloughing trimethoprim Allergy Severe Hives, Verified 09/10/23 12:22 [From skin Sulfamethoxazole-Trimethoprim] sloughing hydrochlorothiazide Allergy Unknown "shut down Verified 09/10/23 12:22 kidneys" Home Medications Medication Instructions Recorded Confirmed Type metoprolol succinate 100 mg 100 mg PO HS ##0 08/07/16 09/10/23 History tablet,extended release 24 hr cholecalciferol (vitamin D3) 25 25 mcg PO QAM 11/22/21 09/10/23 History mcg (1,000 unit) tablet (Vitamin D3) acetaminophen 500 mg tablet 1,000 mg PO BID PRN foot pain 01/16/22 09/10/23 History levothyroxine 175 mcg tablet 175 mcg PO DAILY 02/14/22 09/10/23 History allopurinol 100 mg tablet 100 mg PO QAM #30 tabs 06/09/23 09/10/23 Rx ammonium lactate 5 % lotion 1 applic EXT BID apply to legs and 06/09/23 09/10/23 Rx (Lac-Hydrin Five) feet #226 grams desoximetasone 0.25 % topical 1 applic topical DAILY #100 grams 08/23/23 09/10/23 Rx ointment warfarin 5 mg tablet See Rx Instructions PO UD #120 tabs 09/04/23 09/10/23 Rx rosuvastatin 5 mg tablet 5 mg PO QAM 09/10/23 09/10/23 History Patient History Medical History Venous stasis ulcer Leukocytosis Sepsis History of basal cell carcinoma Penile hypospadias BPH (benign prostatic hyperplasia) Renal cyst On anticoagulant therapy Hearing deficit Prediabetes Obesity Atrial fibrillation, chronic Surgical History History of esophagogastroduodenoscopy (EGD) Family History Other Hearing loss No family history of adverse response to anesthesia No family history of bleeding disorder Denies family history of Heart disease Allergies Cancer Hypertension Stroke Asthma Social History Smoking Status: Former smoker Tobacco Type: Cigarettes packs per day: 1; Second Hand Exposure: No; Do You Dip or Chew Tobacco: No; Tobacco Cessation Education Requested by Patient: No Hx Alcohol Use: Yes Alcohol type: hard liquor Alcohol Intake Frequency: 2-4 x/Month Alcohol Intake Frequency Comment: 1 bottle of champagne / week Hx Substance Use: No Preferred Language: Persian Communication Ability: Effective Communication Ability Comment: quileute, does not have h/a here Visual Impairment: Limited Hearing Ability: Hard of Hearing Insurance Sales Supervisor Required: No Beliefs That Will Affect Care: None marital status: Current Living Situation: Spouse Current Living Situation Comment: lives in 3 story home with and son current occupational status: retired How many Children do You have: 1 How many Children do You have Comment: 3 local, pt independent with care. Other Information That Helps Us Care for You: No Feels Safe at Home: Yes Safety Concerns: Feels Safe At This Time Assistive Devices: Cane, Glasses and Walker Assistive Devices Comment: wears hearing aids but not with him now Results & Data Vital Signs (Past 12 Hours) Vital Signs Temp Pulse Resp BP Pulse Ox O2 Del Method 09/14/23 15:20 36.7 C 65 18 122/75 96 Room Air 09/14/23 08:17 36.6 C 69 20 130/85 99 Room Air Laboratory Results Labs reviewed. Diagnostic Findings Imaging reviewed.
[2023-09-15 08:32] LABS: Hematocrit (blood only) 33.1 % (42.0-52.0); Mean Corpuscular Hemoglobin 24.7 pg (25.0-34.0); Mean Corpuscular Hgb Conc 30.2 g/dL (32.0-36.0); Mean Corpuscular Volume 81.7 fL (80.0-100.0); Mean Platelet Volume 10.4 fL (9.4-12.4); Platelet Count 335 K/uL (130-400); RDW Coefficient of Variation 18.9 % (11.5-14.5); RDW Standard Deviation 56.2 fL (36.4-46.3); Red Blood Count 4.05 M/uL (4.70-6.10)
[2023-09-15 08:40] LABS: BUN Creatinine Ratio 17.6 (10-20); Calcium 8.6 mg/dl (8.6-10.3); Creatinine Clr Calc Pharmacy 46.9 ml/min; Est GFR (African American) 36.2 ml/min; Est GFR (Non-African American) 31.2 ml/min; Potassium 4.8 mmol/L (3.5-5.1)
[2023-09-15 08:45] LABS: INR 1.9 (0.9-1.1); Prothrombin Time 19.3 Seconds (9.0-12.0)
--- NOTE | 2023-09-15 09:51 | Hospitalist Progress Note ---
Date of Service September 15, 2023 Assessment & Plan (1) Cellulitis of left anterior lower leg: Plan: Patient presents to the hospital on account of worsening lower extremity redness and swelling which started 3 weeks prior, failed outpatient mgt LLE Doppler - no DVT Blood cultures negative, Wound cultures growing MRSA and Alcaligenes faecalis Cefepime with intermediate sensitivity to colliculus, has been discontinued Continue IV daptomycin per infectious diseases Patient will need 7 to 10 days of IV treatment per ID Continue to monitor inflammatory markers, CBC (2) History of DVT (deep vein thrombosis): Plan: Continue warfarin @ 5mg PO daily (usually on 7.5mg Sunday, , Sunday, Sunday, 5mg all other days) INR 2.0 today Repeat INR in AM (3) Diabetes: Plan: HbA1C 5.4 Blood glucose has been under good control (4) Sleep apnea: Plan: Patient reports he does use a CPAP at night, but declines it while inpatient (5) Gout: Plan: Continue allopurinol (6) PAD (peripheral artery disease): (7) Chronic kidney disease, stage III (moderate): Plan: monitor Avoid nephrotoxics (8) Venous stasis dermatitis of both lower extremities: (9) Dyshidrotic eczema: Plan: Clobetasol cream HS Suspect this is the cause of his diffuse rash Plan VTE Prophylaxis - warfarin Diet - heart healthy Disposition - Awaiting evaluation by PT, patient may need rehab eventually after discharge Admission and Anticipated Discharge Date Admission Date: September 10, 2023 Subjective patient seen and examined, lying quietly in bed, denies fevers or chills, Tolerating diet Review of Systems Review of Systems: All systems reviewed are negative, apart from the ones contained in the history. Physical Exam Physical Exam: The patient is awake, alert and oriented 3, well developed and well nourished, normocephalic and atraumatic, lying in bed and in no acute distress. HEENT--PERRL, EOMI, mucous membranes and oropharynx mildly dry Neck--supple. No JVD. No bruits. Thyroid normal, trachea midline, no adenopathy. Heart--normal S1 and S2. No murmurs, rubs or gallops. Lungs--clear bilaterally, no respiratory distress, no accessory muscle use. Abdomen--normal bowel sounds and soft. Extremities--leg edema, area of redness and cellulitis Dermatologic-dry,flaky skin, normal turgor, red Neurologic--cranial nerves II through XII grossly intact. Rheumatologic--normal range of motion. Psychiatric--normal affect. Results & Data Results & Data Vital Signs (Past 12 Hours) Vital Signs Temp Pulse Resp BP Pulse Ox O2 Del Method 09/15/23 07:38 97.7 F 58 L 16 125/67 100 Room Air PG Care Time/CCT Total # of Minutes Spent Total Time Spent with Patient: Total time spent is greater than 50% in coordination of care (as documented) at patient's floor/unit and/or counseling patient: Coding Level of Care Code 84266 SUB INP/OBS CARE 2/35MIN Diagnoses Cellulitis of left anterior lower leg L03.116 History of DVT (deep vein thrombosis) Z86.718 Diabetes E11.9 Sleep apnea G47.30 Gout M10.9 PAD (peripheral artery disease) I73.9 Chronic kidney disease, stage III (moderate) N18.3 Venous stasis dermatitis of both lower extremities I87.2 Dyshidrotic eczema L30.1 Time Spent (min) 35
[2023-09-15] MEDS: WARFARIN SOD 7.5 MG TAB PO SCH (16:40)
--- NOTE | 2023-09-16 10:40 | Hospitalist Progress Note ---
Date of Service September 16, 2023 Assessment & Plan (1) Cellulitis of left anterior lower leg: Plan: Patient presents to the hospital on account of worsening lower extremity redness and swelling which started 3 weeks prior, failed outpatient mgt LLE Doppler - no DVT Blood cultures negative, Wound cultures growing MRSA and Alcaligenes faecalis Cefepime has been discontinued Continue IV daptomycin per infectious diseases Patient will need 7 to 10 days of IV treatment per ID Continue to monitor inflammatory markers, CBC (2) History of DVT (deep vein thrombosis): Plan: Continue warfarin @ 5mg PO daily (usually on 7.5mg Sunday, , Sunday, Sunday, 5mg all other days) Repeat INR in AM (3) Diabetes: Plan: HbA1C 5.4 Blood glucose has been under good control (4) Sleep apnea: Plan: Patient reports he does use a CPAP at night, but declines it while inpatient (5) Gout: Plan: Continue allopurinol (6) PAD (peripheral artery disease): (7) Chronic kidney disease, stage III (moderate): Plan: monitor Avoid nephrotoxics (8) Venous stasis dermatitis of both lower extremities: (9) Dyshidrotic eczema: Plan: Clobetasol cream HS Suspect this is the cause of his diffuse rash Plan VTE Prophylaxis - warfarin Diet - heart healthy Disposition - Awaiting evaluation by PT, patient may need rehab eventually after discharge Admission and Anticipated Discharge Date Admission Date: September 10, 2023 Subjective patient seen and examined, lying quietly in bed, denies fevers or chills, Janelle ating diet Review of Systems Review of Systems: All systems reviewed are negative, apart from the ones contained in the history. Physical Exam Physical Exam: The patient is awake, alert and oriented 3, well developed and well nourished, normocephalic and atraumatic, lying in bed and in no acute distress. HEENT--PERRL, EOMI, mucous membranes and oropharynx mildly dry Neck--supple. No JVD. No bruits. Thyroid normal, trachea midline, no adenopathy. Heart--normal S1 and S2. No murmurs, rubs or gallops. Lungs--clear bilaterally, no respiratory distress, no accessory muscle use. Abdomen--normal bowel sounds and soft. Extremities--leg edema, area of redness and cellulitis Dermatologic-dry,flaky skin, normal turgor, red Neurologic--cranial nerves II through XII grossly intact. Rheumatologic--normal range of motion. Psychiatric--normal affect. Results & Data Results & Data Vital Signs (Past 12 Hours) Vital Signs Temp Pulse Resp BP Pulse Ox O2 Del Method 09/16/23 07:25 98.4 F 56 L 17 124/73 99 Room Air PG Care Time/CCT Total # of Minutes Spent Total Time Spent with Patient: Total time spent is greater than 50% in coordination of care (as documented) at patient's floor/unit and/or counseling patient: Coding Level of Care Code 14715 SUB INP/OBS CARE 2/35MIN Diagnoses Cellulitis of left anterior lower leg L03.116 History of DVT (deep vein thrombosis) Z86.718 Diabetes E11.9 Sleep apnea G47.30 Gout M10.9 PAD (peripheral artery disease) I73.9 Chronic kidney disease, stage III (moderate) N18.3 Venous stasis dermatitis of both lower extremities I87.2 Dyshidrotic eczema L30.1 Time Spent (min) 35
[2023-09-17 07:14] LABS: Hematocrit (blood only) 33.2 % (42.0-52.0); Mean Corpuscular Hemoglobin 24.6 pg (25.0-34.0); Mean Corpuscular Hgb Conc 30.1 g/dL (32.0-36.0); Mean Corpuscular Volume 81.8 fL (80.0-100.0); Mean Platelet Volume 10.2 fL (9.4-12.4); Platelet Count 352 K/uL (130-400); RDW Coefficient of Variation 18.9 % (11.5-14.5); RDW Standard Deviation 56.4 fL (36.4-46.3); Red Blood Count 4.06 M/uL (4.70-6.10); White Blood Count 9.24 K/ul (4.8-10.8)
[2023-09-17 07:20] LABS: BUN Creatinine Ratio 15.7 (10-20); Calcium 8.6 mg/dl (8.6-10.3); Creatinine Clr Calc Pharmacy 47.1 ml/min; Est GFR (African American) 36.4 ml/min; Est GFR (Non-African American) 31.4 ml/min; Potassium 4.9 mmol/L (3.5-5.1)
[2023-09-17 08:01] LABS: INR 1.8 (0.9-1.1); Prothrombin Time 18.1 Seconds (9.0-12.0)
--- NOTE | 2023-09-17 08:56 | Infectious Disease Progress Nt ---
Date of Service September 17, 2023 Assessment & Plan (1) Cellulitis of left leg: (2) Diabetes: (3) Chronic kidney disease, stage III (moderate): Plan 77yo M with h/o HFpEF and right sided HF, CKD III, gout, hypothyroidism, OA of knees, afib on coumadin, chronic venous stasis, dermatitis and lymphedema, DVT, severe DERREK, recurrent cellulitis of L leg (prior tx with dapto/ceftazidime 11/2021, then dapto/meropenem 12/2021 but abx stopped as derm felt it was stasis dermatitis and leg appearance unchanged from prior visits), admission in 05/2023 with cellulitis of left toes s/p dapto/levofloxacin x 5-7d) who presented on 09/09 with worsening swelling, redness, weeping of left lower extremity for 3 weeks with acute worsening x 1wk. Here he has been afebrile, vss. WBC 10.16, Cr 2.06, LFT wnl. ESR 120, CRP 4.27. PCT neg. UA with 11-20 WBC. CXR neg. LLE doppler negative for DVT. He has been getting daptomycin and cefepime. ID consulted 09/13. CPK 21. Erythema and drainage improving on current therapy targeted at just MRSA. Will therefore continue without coverage for Alcaligenes, which may likely be nonpathogenic in this case, especially since it was isolated in superficial cultures. Unfortunately, MRSA is resistant to all PO options and will have to complete therapy with IV abx. Since he still has some residual redness after 7d of therapy, can extend to 10 days with daptomycin with last day on 09/18. Abx: Vanc 09/09->Dapto 09/09- Cefepime 09/09-09/13 Micro: 09/09 WCX: few Alcaligenes faecalis (I-cefepime, S-bactrim), many MRSA (R-tetra, Bactrim, clinda) 09/09 UCx: 3+ organisms # LLE cellulitis improving # CKD III # Chronic venous stasis # Prior h/o recurrent LLE cellulitis - continue on daptomycin 425mg (4-6mg/kg, IBW 89kg, CrCl>30) IV q24h - complete total of 10 days of abx for cellulitis with daptomycin, end through 09/18 - no statins while on daptomycin ID will discontinue active follow up at this time. Please do not hesitate to reconsult the Infectious Diseases service as needed. Teresa Larios MD [facility], Division of Infectious Diseases [facility]Connect: [phone] Admission and Anticipated Discharge Date Admission Date: September 10, 2023 Subjective Subsequent visit was provided via telemedicine using two-way real-time interactive telecommunication between the patient and the telemedicine provider. For the duration of the visit, the provider was performing the assessment from a different facility than the patient. This includesuse of bluetooth stethoscope forauscultationperformed by the telepresenter that the telemedicine provider can hear if described in the physical exam. Ski Technician contact information: Please call ID Connect Call Center . (Phone Number For Physician Use Only) After establishing a telemedicine visit, patient was: Patient was verified with two unique identifiers, Patient/authorized rep acknowledged consent and underst anding and Gave permission to continue telehealth session Time Spent with Patient: Subsequent => 35 min Patient reports that his legs are better from admission, but not back to baseline. They always have the chronic changes noted. He denies having any pain but primarily notes that his issues were redness and drainage from his legs, which are improving. No vomiting or diarrhea. Physical Exam Physical Exam: General: Awake, alert, no acute distress HEENT: NC/AT, EOMI, mmm Neck: supple Lungs: respirations non-labored Heart: nl peripheral perfusion Abdomen: soft, NT/ND Ext: bl leg chronic changes, left leg with erythema, scabbed wounds on feet bl Neuro: moving all extremities Results & Data Vital Signs (Past 12 Hours) Vital Signs Temp Pulse Resp BP Pulse Ox O2 Del Method 09/17/23 07:03 36.5 C 63 18 143/79 H 97 Room Air Laboratory Results Labs reviewed. Diagnostic Findings Imaging reviewed.
--- NOTE | 2023-09-17 11:36 | Hospitalist Progress Note ---
Date of Service September 17, 2023 Assessment & Plan (1) Cellulitis of left anterior lower leg: Plan: Patient presents to the hospital on account of worsening lower extremity redness and swelling which started 3 weeks prior, failed outpatient mgt LLE Doppler - no DVT Blood cultures negative, Wound cultures growing MRSA and Alcaligenes faecalis Cefepime has been discontinued, Per infectious diseases no need to cover for A faecalis Continue IV daptomycin per infectious diseases Patient will need 10 days of IV treatment per ID, End date is 09/19/2023 Continue to monitor inflammatory markers, CBC Continue wound care (2) History of DVT (deep vein thrombosis): Plan: Continue warfarin @ 7.5mg PO daily (usually on 7.5mg Sunday, , Sunday, Sunday, 5mg all other days) INR today 1.8 Repeat INR in AM (3) Diabetes: Plan: HbA1C 5.4 Blood glucose has been under good control (4) Sleep apnea: Plan: Patient reports he does use a CPAP at night, but declines it while inpatient (5) Gout: Plan: Continue allopurinol (6) PAD (peripheral artery disease): (7) Chronic kidney disease, stage III (moderate): Plan: monitor Avoid nephrotoxics (8) Venous stasis dermatitis of both lower extremities: (9) Dyshidrotic eczema: Plan: Clobetasol cream HS Suspect this is the cause of his diffuse rash Plan VTE Prophylaxis - warfarin Diet - heart healthy Disposition - Awaiting evaluation by PT, patient may need rehab eventually after discharge.I spoke to the who 0 she wants rehab said the patient is unable to take care of himself at home Admission and Anticipated Discharge Date Admission Date: September 10, 2023 Subjective Patient seen and examined, he continues to get wound care and states that his wound is improving. Review of Systems Review of Systems: All systems reviewed are negative, apart from the ones contained in the history. Physical Exam Physical Exam: The patient is awake, alert and oriented 3, well developed and well nourished, normocephalic and atraumatic, lying in bed and in no acute distress. HEENT--PERRL, EOMI, mucous membranes and oropharynx mildly dry Neck--supple. No JVD. No bruits. Thyroid normal, trachea midline, no adenopathy. Heart--normal S1 and S2. No murmurs, rubs or gallops. Lungs--clear bilaterally, no respiratory distress, no accessory muscle use. Abdomen--normal bowel sounds and soft. Extremities--leg edema, area of redness and cellulitis Dermatologic-dry,flaky skin, normal turgor, red Neurologic--cranial nerves II through XII grossly intact. Rheumatologic--normal range of motion. Psychiatric--normal affect. Results & Data Results & Data Vital Signs (Past 12 Hours) Vital Signs Temp Pulse Resp BP Pulse Ox O2 Del Method 09/17/23 07:03 97.7 F 63 18 143/79 H 97 Room Air PG Care Time/CCT Total # of Minutes Spent Total Time Spent with Patient: Total time spent is greater than 50% in coordination of care (as documented) at patient's floor/unit and/or counseling patient: Coding Level of Care Code 95915 SUB INP/OBS CARE 2/35MIN Diagnoses Cellulitis of left anterior lower leg L03.116 History of DVT (deep vein thrombosis) Z86.718 Diabetes E11.9 Sleep apnea G47.30 Gout M10.9 PAD (peripheral artery disease) I73.9 Chronic kidney disease, stage III (moderate) N18.3 Venous stasis dermatitis of both lower extremities I87.2 Dyshidrotic eczema L30.1 Time Spent (min) 35
[2023-09-18 07:24] LABS: Hematocrit (blood only) 34.6 % (42.0-52.0); Hemoglobin 10.3 g/dl (14.0-18.0); Mean Corpuscular Hemoglobin 24.3 pg (25.0-34.0); Mean Corpuscular Hgb Conc 29.8 g/dL (32.0-36.0); Mean Corpuscular Volume 81.6 fL (80.0-100.0); Platelet Count 380 K/uL (130-400); RDW Standard Deviation 57.3 fL (36.4-46.3); Red Blood Count 4.24 M/uL (4.70-6.10); White Blood Count 9.16 K/ul (4.8-10.8)
[2023-09-18 07:27] LABS: BUN Creatinine Ratio 17.5 (10-20); Calcium 8.7 mg/dl (8.6-10.3); Est GFR (African American) 40.1 ml/min; Est GFR (Non-African American) 34.6 ml/min; Potassium 4.9 mmol/L (3.5-5.1)
--- NOTE | 2023-09-18 13:50 | Hospitalist Progress Note ---
Date of Service September 18, 2023 Assessment & Plan (1) Cellulitis of left anterior lower leg: Plan: Patient presents to the hospital on account of worsening lower extremity redness and swelling which started 3 weeks prior, failed outpatient mgt LLE Doppler - no DVT Blood cultures negative, Wound cultures growing MRSA and Alcaligenes faecalis Cefepime has been discontinued, Per infectious diseases no need to cover for A faecalis Continue IV daptomycin per infectious diseases Patient will need 10 days of IV treatment per ID, End date is 09/19/2023 Continue to monitor inflammatory markers, CBC Continue wound care The patient's is concerned that he does not adequately take care of his wounds at home, which the patient disputes However patient has agreed to follow-up with wound care outpatient, he states it is about [address] from his home. (2) History of DVT (deep vein thrombosis): Plan: Continue warfarin @ 7.5mg PO daily (usually on 7.5mg Sunday, , Sunday, Sunday, 5mg all other days) INR today 1.8 Repeat INR in AM (3) Diabetes: Plan: HbA1C 5.4 Blood glucose has been under good control (4) Sleep apnea: Plan: Patient reports he does use a CPAP at night, but declines it while inpatient (5) Gout: Plan: Continue allopurinol (6) PAD (peripheral artery disease): (7) Chronic kidney disease, stage III (moderate): Plan: monitor Avoid nephrotoxics (8) Venous stasis dermatitis of both lower extremities: (9) Dyshidrotic eczema: Plan: Clobetasol cream HS Suspect this is the cause of his diffuse rash Plan VTE Prophylaxis - warfarin Diet - heart healthy Disposition - Hopefully discharge home with home health tomorrow Admission and Anticipated Discharge Date Admission Date: September 10, 2023 Subjective Patient seen and examined, he continues to get wound care and states that his wound is improving. Review of Systems Review of Systems: All systems reviewed are negative, apart from the ones contained in the history. Physical Exam Physical Exam: The patient is awake, alert and oriented 3, well developed and well nourished, normocephalic and atraumatic, lying in bed and in no acute distress. HEENT--PERRL, EOMI, mucous membranes and oropharynx mildly dry Neck--supple. No JVD. No bruits. Thyroid normal, trachea midline, no adenopathy. Heart--normal S1 and S2. No murmurs, rubs or gallops. Lungs--clear bilaterally, no respiratory distress, no accessory muscle use. Abdomen--normal bowel sounds and soft. Extremities--leg edema, area of redness and cellulitis Dermatologic-dry,flaky skin, normal turgor, red Neurologic--cranial nerves II through XII grossly intact. Rheumatologic--normal range of motion. Psychiatric--normal affect. Results & Data Results & Data Vital Signs (Past 12 Hours) Vital Signs Temp Pulse Resp BP Pulse Ox O2 Del Method 09/18/23 07:13 98.1 F 72 16 118/70 99 Room Air PG Care Time/CCT Total # of Minutes Spent Total Time Spent with Patient: Total time spent is greater than 50% in coordination of care (as documented) at patient's floor/unit and/or counseling patient: Coding Level of Care Code 50023 SUB INP/OBS CARE 2/35MIN Diagnoses Cellulitis of left anterior lower leg L03.116 History of DVT (deep vein thrombosis) Z86.718 Diabetes E11.9 Sleep apnea G47.30 Gout M10.9 PAD (peripheral artery disease) I73.9 Chronic kidney disease, stage III (moderate) N18.3 Venous stasis dermatitis of both lower extremities I87.2 Dyshidrotic eczema L30.1 Time Spent (min) 35
--- NOTE | 2023-09-19 10:36 | Discharge Summary ---
Date of Service September 19, 2023 Admission HPI Per Admitting Provider Dieudonne is a 77-year-old male with PMH of HFpEF, DVT (on warfarin), PAD, venous stasis dermatitis bilaterally, diabetes, diabetic foot infection, cellulitis, pressure ulcers, gout, CKD stage III, chronic atrial fibrillation, and HTN. He presented for a left lower extremity infection x 3 week, with an acute worsening of swelling/erythema/weeping over the past week. He reports that both legs are erythematous and warm to touch, but is worse in the left leg. He has been wrapping the leg twice daily, and applying desoximetasone cream. He has not been on any outpatient antibiotics for this. He took all of his regular morning medications today; no recent change in medications. History of DVTs in both legs, but he reports good compliance with taking his warfarin; last taken the night prior. Patient denies history of smoking, tobacco use. He does endorse alcohol use; bourbon 3 times per week. Patient denies hardware in either of his lower extremities (such as knee replacements or ankle surgeries). He has been on any patient is hypertensive 153/86 at time of admission; vitals otherwise stable. ED course: Vancomycin 2750 mg IV Cefepime 2000 mg IV ROS: Patient endorses itchy/swollen/erythematous lower extremities (left leg worse than right) x 3 weeks. Patient denies fever, chills, night-sweats, rashes, tick bites, headache, dizziness, lightheadedness, chest pain, chest palpitations, cough, SOB, ab dominal pain, N/V/D, changes in urinary/bowel habits, dyuria, leg pain, or lower extremity numbness/tingling. Principal Diagnosis Lower extremity cellulitis Discharge Exam The patient is awake, alert and oriented 3, well developed and well nourished, normocephalic and atraumatic, lying in bed and in no acute distress. HEENT--PERRL, EOMI, mucous membranes and oropharynx mildly dry Neck--supple. No JVD. No bruits. Thyroid normal, trachea midline, no adenopathy. Heart--normal S1 and S2. No murmurs, rubs or gallops. Lungs--clear bilaterally, no respiratory distress, no accessory muscle use. Abdomen--normal bowel sounds and soft. Extremities--leg edema, area of redness and cellulitis Dermatologic-dry,flaky skin, normal turgor, red Neurologic--cranial nerves II through XII grossly intact. Rheumatologic--normal range of motion. Psychiatric--normal affect. Discharge Data Allergies Allergy/AdvReac Type Severity Reaction Status Date / Time furosemide Allergy Severe Caused Unverified 09/10/23 12:22 issue with kidneys Sulfa (Sulfonamide Allergy Severe Hives, Unverified 09/10/23 12:22 Antibiotics) skin sloughing sulfamethoxazole Allergy Severe Hives, Verified 09/10/23 12:22 [From skin Sulfamethoxazole-Trimethoprim] sloughing trimethoprim Allergy Severe Hives, Verified 09/10/23 12:22 [From skin Sulfamethoxazole-Trimethoprim] sloughing hydrochlorothiazide Allergy Unknown "shut down Verified 09/10/23 12:22 kidneys" Consultations 09/10/23 12:01 ED Decision to Admit Stat 09/14/23 15:19 Consult Infectious Diseases Routine Ordered Studies 09/10/23 12:36 US venous doppler LE Stat Hospital Course (1) Cellulitis of left anterior lower leg: Patient presents to the hospital on account of worsening lower extremity redness and swelling which started 3 weeks prior, failed outpatient mgt LLE Doppler - no DVT Blood cultures negative, Wound cultures growing MRSA and Alcaligenes faecalis Cefepime has been discontinued, Per infectious diseases no need to cover for A faecalis Continue IV daptomycin per infectious diseases Patient will need 10 days of IV treatment per ID, End date is 09/19/2023 Continue to monitor inflammatory markers, CBC Continue wound care The patient's is concerned that he does not adequately take care of his wounds at home, which the patient disputes However patient has agreed to follow-up with wound care outpatient, he states it is about [address] from his home. (2) History of DVT (deep vein thrombosis): Continue warfarin @ 7.5mg PO daily (usually on 7.5mg Sunday, , Sunday, Sunday, 5mg all other days) INR today 1.8 Repeat INR in AM (3) Diabetes: HbA1C 5.4 Blood glucose has been under good control (4) Sleep apnea: Patient reports he does use a CPAP at night, but declines it while inpatient (5) Gout: Continue allopurinol (6) PAD (peripheral artery disease): (7) Chronic kidney disease, stage III (moderate): monitor Avoid nephrotoxics (8) Venous stasis dermatitis of both lower extremities: (9) Dyshidrotic eczema: Clobetasol cream HS Suspect this is the cause of his diffuse rash Plan VTE Prophylaxis - warfarin Diet - heart healthy Disposition - Hopefully discharge home Total Time Total Time Spent Total Time Spent (In Minutes): 35 Discharge Plan Discharge Items Patient Disposition: Home - Self-Care Reason For Visit: LLE INFECTION Discharge Diagnosis: LLE cellulitis Activity: Resume your previous activity Non-emergency contact: Primary Care Provider Call non-emergency contact if: you have any medication questions Follow-up/Referrals: Clovis Heredia [Primary Care Provider] - 09/25/23 2:45 pm (APPOINTMENT WITH DR ARIAS) Diet: Regular Addtl Attending Provider Instructions: Please make appointment to follow up with wound care, also stop drinking alcohol due to the attendant multiple ill effects Pending Studies at Discharge: No Stand-Alone Forms: My [employer], Smoking Cessation Medications and DC Order Prescriptions: Continued acetaminophen 500 mg tablet 1,000 mg PO BID PRN (Reason: foot pain) levothyroxine 175 mcg tablet 175 mcg PO DAILY warfarin 5 mg tablet See Rx Instructions PO UD Qty: 120 1RF Rx Instructions: 7.5mg q Sa, 5mg x 4 days per [facility] orally use as directed; metoprolol succinate 100 mg Tablet Extended Release 24 Hr 100 mg PO HS Qty: 0 desoximetasone 0.25 % ointment 1 applic topical DAILY Qty: 100 1RF Rx Instructions: Apply to areas of the legs once daily as directed for flaring. cholecalciferol (vitamin D3) [Vitamin D3] 25 mcg (1,000 unit) Tablet 25 mcg PO QAM rosuvastatin 5 mg tablet 5 mg PO QAM allopurinol 100 mg Tablet 100 mg PO QAM Qty: 30 0RF Lac-Hydrin Five 5 % Lotion 1 applic EXT BID Qty: 226 0RF Discharge Orders: Discharge Order (Routine); Ordered 09/19/23 Ordered By: Hilaria Gambino/Other Patient Handouts: Nutrition for Wound Healing Admission Data Admit Date/Time: 09/10/23 12:49 Attending Provider: Hilaria Rnee Admit Provider: Rich Patel Primary Care Provider: Clovis Heredia Other Providers: Rich Patel; Tuyet Mendosa; Priscilla Gomez; Teresa Larios; Randolph Ryan; Caroline Danielle; Anahi Lowe Coding Level of Care Code 79773 INP/OBS DISCH >30 MIN Diagnoses Cellulitis of left anterior lower leg L03.116 History of DVT (deep vein thrombosis) Z86.718 Diabetes E11.9 Sleep apnea G47.30 Gout M10.9 PAD (peripheral artery disease) I73.9 Chronic kidney disease, stage III (moderate) N18.3 Venous stasis dermatitis of both lower extremities I87.2 Dyshidrotic eczema L30.1 Time Spent (min) 35
== END 2023-09-19 14:14 | disposition home health service (06) | DRG 603 ==
LOC: ED 08:42 → EDINP 12:49 → SUATTDRO 12:49 → 3N 16:54

== ENCOUNTER 2024-11-26 14:07 | Inpatient (IN) ==
[2024-11-26 15:07] LABS: Hematocrit (blood only) 44.7 % (42.0-52.0); Hemoglobin 15.3 g/dl (14.0-18.0); Mean Corpuscular Hemoglobin 32.1 pg (25.0-34.0); Mean Corpuscular Volume 93.9 fL (80.0-100.0); Platelet Count 196 K/uL (130-400); RDW Standard Deviation 51.1 fL (36.4-46.3); Red Blood Count 4.76 M/uL (4.70-6.10); White Blood Count 20.07 K/ul (4.8-10.8)
--- NOTE | 2024-11-26 15:11 | XRay Report ---
XR pelvis 1-2V routine CLINICAL HISTORY: Pain status post trauma COMPARISON: None FINDINGS: 2 views reveal no acute fractures or dislocations. There are mild degenerative changes pre sent. IMPRESSION: No acute fractures or dislocations identified. ACT 112: Negative or not required by law. Electronically signed by: Christiano Liu M.D. 11/26/2024 3:09 PM
--- NOTE | 2024-11-26 15:16 | XRay Report ---
SINGLE VIEW CHEST CLINICAL HISTORY: Sepsis FINDINGS: 3 AP, portable, semierect chest radiographs are compared to study dated 09/10/2023. Correlat ion is made with chest CT dated 09/23/2019. The heart is enlarged noting mild atherosclerotic calcific ation of the thoracic aorta. There is pulmonary vascular congestion. Scarring/atelectasis is noted at the lung bases. No airspace consolidation or large pleural effusion is identified. There are tiny ca lcified granulomas. No pneumothorax is seen. The skeletal structures are osteopenic. The bony thorax is grossly intact. IMPRESSION: 1. Cardiomegaly with pulmonary vascular congestion. 2. No airspace consolidation or large pleural effusion is identified. ACT 112: Negative or not required by law. Electronically signed by: Aly Devine M.D. 11/26/2024 3:15 PM
[2024-11-26 15:25] LABS: Base Excess VBG -1.3 mEq/L; HCO3 VBG 24 mmol/L; Oxygen Saturation VBG < 60.0 %; PCO2 VBG 40 mmHg (38-50); PO2 VBG < 20 mmHg; pH VBG 7.38 (7.36-7.41)
[2024-11-26 15:29] LABS: Appearance Urine Cloudy (Clear); Bacteria Urine Automated None Seen (None Seen); Cast Urine Automated >20 /lpf (0-2); Glucose Urine UA Negative (Negative); WBC Urine Automated 0-5 /hpf (0-5)
[2024-11-26 15:30] LABS: Alanine Aminotransferase 17 U/L (7-52); Alkaline Phosphatase 86 U/L (34-104); Anion Gap 9 (3-11); Bilirubin,Total 1.2 mg/dl (0.2-1.0); Blood Urea Nitrogen 32 mg/dl (6-23); Calcium 8.8 mg/dl (8.6-10.3); Carbon Dioxide 22 mmol/L (21-32); Chloride 103 mmol/L (98-107); Creatine Kinase 1012 U/L (30-223); Creatinine Clr Calc Pharmacy 39.2 ml/min; Glucose 96 mg/dl (70-99(Fasting)); Magnesium 1.4 mg/dl (1.7-2.4); Sodium 134 mmol/L (136-145); Total Protein 7.5 gm/dl (6.0-8.3)
[2024-11-26 15:33] LABS: Immature Granulocytes # (auto) 0.17 K/uL (0.01-0.20); Immature Granulocytes % (auto) 0.8 %
[2024-11-26] MEDS: SODIUM CHLORIDE 0.9% 1,000 ML IV SCH (16:06)
[2024-11-26] MEDS: CEFEPIME 2000MG 2,000 MG/20 ML SYR IV STA (16:07)
[2024-11-26] MEDS: VANCOMYCIN HCL 2,500 MG in SODIUM CHLORIDE 0.9% 500 ML IV ONE (16:10)
[2024-11-26 16:15] LABS: INR 1.3 (0.9-1.1); Prothrombin Time 14.1 Seconds (9.0-12.0)
--- NOTE | 2024-11-26 16:21 | Electrocardiogram Report ---
Test Reason : Blood Pressure : */* mmHG Vent. Rate : 88 BPM Atrial Rate : * BPM P-R Int : * ms QRS Dur : 146 ms QT Int : 410 ms P-R-T Axes : * 57 -15 degrees QTcB Int : 496 ms Atrial fibrillation Right bundle branch block Abnormal ECG When compared with ECG of 10-Sep-2023 10:06, Vent. rate has increased by 34 bpm Confirmed by Mo Baird ([id number]) on 11/26/2024 4:20:58 PM Referred By: Confirmed By: Mo Baird
[2024-11-26] MEDS: MAGNESIUM SULFATE / D5W 1 GM/100 ML BAG IV SCH (16:23)
--- NOTE | 2024-11-26 16:30 | Emergency Department Note ---
Impression & Plan Cellulitis, Fall, Elevated troponin, CKD (chronic kidney disease), Rhabdomyolysis ED Provider Note ED Provider Note NAME: ANNAMARIE LARSEN AGE:78 SEX: Male : 1945 ARRIVES VIA: EMS INFORMANT: Patient ED PROVIDER(s): Akua White DO CHIEF COMPLAINT: Leg swelling and redness, fall HPI: This is a 78-year-old male who presents to the emergency department via EMS after being found on the floor by his son. EMS reports patient with a history of lower extremity cellulitis of the legs appear very red, swollen, and foul- smelling. Patient states he accidentally fell last night but denies striking his head or losing consciousness. He denies any pain in the legs. He states his legs "always look like bad". He denies any chest pain, difficulty breathing, abdominal pain, vomiting, change in urine, or change in stools. He denies any recent change in medications. Patient states there is a nurse that, has to change the dressing on his legs every week and he also sees a motor equipment commanding officer. PAST MEDICAL HISTORY:See Below PAST SURGICAL HISTORY:See Below FAMILY HISTORY:See Below SOCIAL HISTORY:See Below HOME MEDICATIONS:See Below ALLERGIES:See Below VITALS:See Below PHYSICAL EXAMINATION: GENERAL: alert, unwell appearing, well nourished, no distress, non-toxic EYE EXAM: normal conjunctiva, PERRL and EOM's grossly intact OROPHARYNX: no exudate, no erythema, lips, buccal mucosa, and tongue normal and mucous membranes are dry NECK: supple, no nuchal rigidity, no adenopathy, non-tender LUNGS: Clear to auscultation. Normal chest wall mechanics, no w/r/r HEART: no murmurs, S1 normal and S2 normal ABDOMEN: abdomen soft, non-tender, normo-active bowel sounds, no masses, no rebound or guarding. SKIN: no rashes, petechiae, orbruising UPPER EXTREMITIES: upper extremities are grossly normal. FROM, nml pulses b/l. LOWER EXTREMITIES: Bilateral lower extremity edema and significant erythema extending up to the proximal thighs bilaterally, extension with ROM, no joint effusions, several wounds noted to be open with oozing and foul smelling odor, left foot with significant dermatitis and plaquing that appears to encrust the entire left foot NEURO EXAM: Normal sensorium, cranial nerves II-XII grossly intact, normal speech, no facial droop,nogross weakness of arms, no gross weakness of legs. Gross sensation intact. No ataxia. Vital Signs: reviewed and remarkable Differential Diagnosis: sepsis, UTI, pneumonia, DALE, electrolyte abnormalities, dysrhythmia, cellulitis, CVA, ICH, medication adr, failed outpatient mgmt, as well as others were entertained. MEDICAL DECISION MAKING: This is a 78-year-old male who presents to the emergency department after son found him on the floor and he reported falling overnight. Patient denied any concerns or complaints and denied any injury related to the fall and evaluation here. Patient ill-appearing on arrival with obvious bilateral lower extremity cellulitis. He was afebrile and hemodynamically stable. Labs including cultures drawn and sent, IV established although there was a delay as patient with difficult IV access and IV team had to be contacted to try and find IV access for both lab drawl and IV placement. Following this patient started on IV fluids and IV antibiotics. EKG and x-ray performed at bedside and interpreted by me. Patient sent for CT imaging to rule out additional traumatic injury. CT head, C-spine, and abdomen/pelvis performed without contrast due to chronic kidney disease and were reassuring. Patient's creatinine appears within range of his prior on review of EMR. Patient noted to have a leukocytosis of 20 and a procalcitonin of 5. Initial lactic acid slightly elevated at 2.1 although was downtrending upon repeat. I did discuss antibiotic choice with the ED pharmacist, June, prior to ordering. Osborne catheter placed to monitor urine output and prevent any further irritation to the surrounding skin. Patient noted to have erythematous changes to the inguinal folds bilaterally that appear more likely to be fungal in nature. No clinical evidence for Carter's gangrene. Involved areas of the lower extremities outlined with sterile marking pen. Patient with elevated CK likely from prolonged time laying on the floor I suspect this is the etiology of his hematuria additionally. Patient was noted to have an elevated troponin although I suspect this is more likely due to infection and CKD and not primarily ACS. Patient and son updated several times on results and plan, they verbalized understanding are in agreement. Case discussed with the hospitalist team for additional inpatient management. Consultation(s): 1754: Discussed with Dr. Castillo, not any hospitalist team, for additional evaluation and management. ER Treatment Provided: See below 1615: Discussed with son who is now at bedside. Son reports he has had several courses of antibiotics over the last 3 weeks including cephalexin and another 1 that he cannot remember the name. He had been seen by dermatology a few weeks ago and they had a home nurse who was coming to change dressings and check on his legs. He was scheduled to have a follow-up visit with dermatology today. Son states he left for work at 5 AM and did not realize his father had fallen until he came home to pick him up to take him to the dermatology appointment. He states he had fallen in his room. Diagnostics Interpreted By Me: -ECG: Atrial fibrillation at a rate of 88, normal axis, appearance of right bundle branch block, nonspecific ST/T wave changes -Cardiac Monitoring: An order was placed for continuous cardiac monitoring. The monitor shows a rate of 86 with a.fib rhythm. -Laboratory studies: As stated above and show below. -Imaging studies: X-ray Chest: A single view study of the chest was reviewed and was negative for cardiomegaly, focal infiltrate, effusion, pulmonary edema, or wide mediastinum. Triage Nursing Note Reviewed Prior/Outside Records Reviewed Critical Care: Critical care of 52min performed to assess and manage high likelihood of life-threatening sepsis, involving labs and imaging performed with assessment to evaluate cellulitis and fall diagnosis with frequent reassessment. This time includes bedside time, treatment discussions with patient/family/consultants, documentation time and excludes procedure time. Past Med/Surg History Problem List Acute kidney injury superimposed on CKD Rhabdomyolysis (Acute) CKD (chronic kidney disease) (Acute) Elevated troponin (Acute) Fall (Acute) B12 deficiency anemia Anemia Abnormal ankle brachial index Venous ulcer of left leg Dyshidrotic eczema Cellulitis of left leg (Acute) Cellulitis of left anterior lower leg History of DVT (deep vein thrombosis) PAD (peripheral artery disease) Toe infection Right-sided heart failure (HFpEF) heart failure with preserved ejection fraction DALE (acute kidney injury) (Acute) Venous stasis dermatitis of both lower extremities Acute venous stasis dermatitis of both legs Lab test negative for COVID-19 virus (Acute) Hypothyroidism Diabetic foot infection Diabetes DALE (acute kidney injury) Cellulitis of left foot (Acute) Vitamin D deficiency Skin tear of right hand without complication (Acute) Venous stasis dermatitis (Acute) Current use of detention anticoagulation (Chronic) Chronic venous insufficiency (Chronic) Cellulitis of foot (Acute) Open wound of foot (Acute) Anticoagulated on Coumadin (Acute) Nonischemic cardiomyopathy Sleep apnea (Chronic) cpap Thoracic aortic aneurysm Hypothyroidism (Acute) Right shoulder strain (Acute) Chest wall contusion (Acute) Left leg swelling (Acute) Abnormal tympanic membrane of right ear Left otitis externa Foreign body of ear, left Aortic valve sclerosis (Acute) Rosacea (Acute) Gout (Chronic) Pressure ulcer of right foot, stage 2 (Acute) Acute retention of urine Hypospadias, penile Anticoagulated on Coumadin (Chronic) Hypertension (Acute) Chronic atrial fibrillation (Chronic) Chronic kidney disease, stage III (moderate) (Chronic) Chronic ulcer of left foot (Chronic) Medical History Cellulitis Venous stasis ulcer Leukocytosis Sepsis History of basal cell carcinoma Penile hypospadias BPH (benign prostatic hyperplasia) Renal cyst On anticoagulant therapy Hearing deficit Prediabetes Obesity Atrial fibrillation, chronic Surgical History History of esophagogastroduodenoscopy (EGD) Family History Other Hearing loss No family history of adverse response to anesthesia No family history of bleeding disorder Denies family history of Heart disease Allergies Cancer Hypertension Stroke Asthma Social History Smoking Status: Never smoker Tobacco Type: Cigarettes packs per day: 1; Second Hand Exposure: No; Do You Dip or Chew Tobacco: No; Hx Alcohol Use: Yes Alcohol type: hard liquor Alcohol Intake Frequency: 2-4 x/Month Alcohol Intake Frequency Comment: 1 bottle of champagne / week Hx Substance Use: No Preferred Language: Setswana Communication Ability: Effective Communication Ability Comment: bois forte, does not have h/a here Visual Impairment: Limited Hearing Ability: Hard of Hearing Roll Capper Required: No Beliefs That Will Affect Care: None marital status: Current Living Situation: Family Current Living Situation Comment: Lives with son current occupational status: retired How many Children do You have: 1 How many Children do You have Comment: 3 local, pt independent with care. Feels Safe at Home: Yes Diet: regular caffeine: Yes (1 8oz cup) Seatbelt Use: always Do you think of yourself as: straight/heterosexual Gender Identity: Male Assistive Devices: Cane, Glasses, Hearing Aid - Bilateral and Walker Allergies Allergies Allergy/AdvReac Type Severity Reaction Status Date / Time furosemide Allergy Severe Caused Unverified 11/12/24 13:07 issue with kidneys Sulfa (Sulfonamide Allergy Severe Hives, Unverified 11/12/24 13:07 Antibiotics) skin sloughing sulfamethoxazole Allergy Severe Hives, Verified 11/12/24 13:07 [From skin Sulfamethoxazole-Trimethoprim] sloughing trimethoprim Allergy Severe Hives, Verified 11/12/24 13:07 [From skin Sulfamethoxazole-Trimethoprim] sloughing hydrochlorothiazide Allergy Unknown "shut down Verified 11/12/24 13:07 kidneys" Home Meds Home Medications Medication Instructions Recorded Confirmed acetaminophen 500 mg tablet 1,000 mg PO BID PRN Pain 01/16/22 11/26/24 levothyroxine 175 mcg tablet 175 mcg PO DAILY 02/14/22 11/26/24 rosuvastatin 5 mg tablet 5 mg PO QAM 09/10/23 11/26/24 metoprolol succinate 100 mg 100 mg PO HS #0 tabs 10/15/23 11/26/24 tablet,extended release 24 hr ferrous sulfate 325 mg (65 mg 325 mg PO DAILY 02/18/24 11/26/24 iron) tablet (Feosol) allopurinol 100 mg tablet 200 mg PO QAM 05/27/24 11/26/24 cholecalciferol (vitamin D3) 25 50 mcg PO QAM 05/27/24 11/26/24 mcg (1,000 unit) tablet (Vitamin D3) Previous Rx's Medication Instructions Recorded desoximetasone 0.25 % topical 1 applic topical DAILY #100 grams 09/09/24 ointment warfarin 5 mg tablet See Rx Instructions PO UD #40 tabs 10/15/24 cephalexin 500 mg capsule 500 mg PO TID 10 days #30 caps 11/14/24 Results & Data (ED) Vital Signs Vital Signs - 24 hr 11/26/24 14:31 11/26/24 14:44 11/26/24 14:46 Temperature 37.2 C Temperature Source Oral Pulse Rate 91 H 90 Pulse Rate [Apical] 82 Pulse Rate from SpO2 Sensor Pulse Rhythm Pulse Rhythm [Apical] Regular Pulse Strength [Apical] Normal Respiratory Rate 18 26 H Respiratory Effort / Characteristics Non-Labored Spontaneous Non-Labored Spontaneous Respiratory Depth Normal Normal Respiratory Pattern Regular Regular Blood Pressure 140/71 Blood Pressure [Right Arm] 134/68 Blood Pressure Mean 94 Blood Pressure Mean [Right Arm] 90 Blood Pressure Position [Right Arm] Lying Pulse Oximetry 97 95 Oxygen Delivery Method Room Air Room Air Sepsis Recent Fever Within 48 Hours No Sepsis New/Unexplained Change in Mental Status Yes Sepsis Action Taken by Nursing No Action Required 11/26/24 14:46 11/26/24 14:47 11/26/24 14:52 Temperature Temperature Source Pulse Rate 86 Pulse Rate [Apical] 80 85 Pulse Rate from SpO2 Sensor Pulse Rhythm Regular Pulse Rhythm [Apical] Regular Regular Pulse Strength [Apical] Normal Normal Respiratory Rate 26 H 27 H 19 Respiratory Effort / Characteristics Non-Labored Spontaneous Non-Labored Spontaneous Respiratory Depth Normal Normal Respiratory Pattern Regular Regular Blood Pressure Blood Pressure [Right Arm] 134/68 134/68 Blood Pressure Mean Blood Pressure Mean [Right Arm] 90 90 Blood Pressure Position [Right Arm] Lying Lying Pulse Oximetry 93 95 94 Oxygen Delivery Method Room Air Room Air Room Air Sepsis Recent Fever Within 48 Hours Sepsis New/Unexplained Change in Mental Status Sepsis Action Taken by Nursing 11/26/24 15:03 11/26/24 15:07 11/26/24 15:15 Temperature Temperature Source Pulse Rate Pulse Rate [Apical] 92 H 92 H 92 H Pulse Rate from SpO2 Sensor Pulse Rhythm Pulse Rhythm [Apical] Regular Regular Pulse Strength [Apical] Normal Normal Respiratory Rate 27 H 27 H 27 H Respiratory Effort / Characteristics Non-Labored Spontaneous Non-Labored Spontaneous Non-Labored Spontaneous Respiratory Depth Normal Normal Normal Respiratory Pattern Regular Regular Regular Blood Pressure Blood Pressure [Right Arm] 119/75 119/75 119/75 Blood Pressure Mean Blood Pressure Mean [Right Arm] 89 89 89 Blood Pressure Position [Right Arm] Lying Lying Lying Pulse Oximetry 92 92 92 Oxygen Delivery Method Room Air Room Air Sepsis Recent Fever Within 48 Hours Sepsis New/Unexplained Change in Mental Status Sepsis Action Taken by Nursing 11/26/24 15:21 11/26/24 15:30 11/26/24 15:30 Temperature Temperature Source Pulse Rate 84 Pulse Rate [Apical] Pulse Rate from SpO2 Sensor 87 Pulse Rhythm Pulse Rhythm [Apical] Pulse Strength [Apical] Respiratory Rate 26 H Respiratory Effort / Characteristics Respiratory Depth Respiratory Pattern Blood Pressure 126/75 126/75 Blood Pressure [Right Arm] Blood Pressure Mean 81 81 Blood Pressure Mean [Right Arm] Blood Pressure Position [Right Arm] Pulse Oximetry 98 Oxygen Delivery Method Sepsis Recent Fever Within 48 Hours Sepsis New/Unexplained Change in Mental Status Sepsis Action Taken by Nursing 11/26/24 15:39 11/26/24 15:45 11/26/24 15:45 Temperature Temperature Source Pulse Rate 153 H 92 H Pulse Rate [Apical] Pulse Rate from SpO2 Sensor 99 H 86 Pulse Rhythm Pulse Rhythm [Apical] Pulse Strength [Apical] Respiratory Rate 24 25 H Respiratory Effort / Characteristics Respiratory Depth Respiratory Pattern Blood Pressure 136/79 Blood Pressure [Right Arm] Blood Pressure Mean 90 Blood Pressure Mean [Right Arm] Blood Pressure Position [Right Arm] Pulse Oximetry 85 L 93 Oxygen Delivery Method Sepsis Recent Fever Within 48 Hours Sepsis New/Unexplained Change in Mental Status Sepsis Action Taken by Nursing 11/26/24 16:00 11/26/24 16:00 11/26/24 16:00 Temperature Temperature Source Pulse Rate 82 Pulse Rate [Apical] Pulse Rate from SpO2 Sensor 90 Pulse Rhythm Pulse Rhythm [Apical] Pulse Strength [Apical] Respiratory Rate 24 Respiratory Effort / Characteristics Respiratory Depth Respiratory Pattern Blood Pressure 139/77 139/77 Blood Pressure [Right Arm] Blood Pressure Mean 106 106 Blood Pressure Mean [Right Arm] Blood Pressure Position [Right Arm] Pulse Oximetry 96 Oxygen Delivery Method Room Air Sepsis Recent Fever Within 48 Hours Sepsis New/Unexplained Change in Mental Status Sepsis Action Taken by Nursing 11/26/24 16:15 11/26/24 16:15 11/26/24 16:39 Temperature Temperature Source Pulse Rate 93 H 86 Pulse Rate [Apical] Pulse Rate from SpO2 Sensor 94 H 85 Pulse Rhythm Pulse Rhythm [Apical] Pulse Strength [Apical] Respiratory Rate 23 24 Respiratory Effort / Characteristics Respiratory Depth Respiratory Pattern Blood Pressure 135/73 Blood Pressure [Right Arm] Blood Pressure Mean 83 Blood Pressure Mean [Right Arm] Blood Pressure Position [Right Arm] Pulse Oximetry 98 94 Oxygen Delivery Method Room Air Room Air Sepsis Recent Fever Within 48 Hours Sepsis New/Unexplained Change in Mental Status Sepsis Action Taken by Nursing 11/26/24 16:45 11/26/24 16:45 11/26/24 16:57 Temperature Temperature Source Pulse Rate 83 88 Pulse Rate [Apical] Pulse Rate from SpO2 Sensor 91 H 89 Pulse Rhythm Pulse Rhythm [Apical] Pulse Strength [Apical] Respiratory Rate 27 H 27 H Respiratory Effort / Characteristics Respiratory Depth Respiratory Pattern Blood Pressure 128/77 Blood Pressure [Right Arm] Blood Pressure Mean 85 Blood Pressure Mean [Right Arm] Blood Pressure Position [Right Arm] Pulse Oximetry 94 94 Oxygen Delivery Method Room Air Room Air Sepsis Recent Fever Within 48 Hours Sepsis New/Unexplained Change in Mental Status Sepsis Action Taken by Nursing 11/26/24 17:00 11/26/24 17:27 11/26/24 17:45 Temperature Temperature Source Pulse Rate Pulse Rate [Apical] Pulse Rate from SpO2 Sensor 88 Pulse Rhythm Pulse Rhythm [Apical] Pulse Strength [Apical] Respiratory Rate Respiratory Effort / Characteristics Respiratory Depth Respiratory Pattern Blood Pressure 137/81 123/79 Blood Pressure [Right Arm] Blood Pressure Mean 85 103 Blood Pressure Mean [Right Arm] Blood Pressure Position [Right Arm] Pulse Oximetry 99 Oxygen Delivery Method Room Air Sepsis Recent Fever Within 48 Hours Sepsis New/Unexplained Change in Mental Status Sepsis Action Taken by Nursing 11/26/24 17:51 11/26/24 17:57 11/26/24 18:00 Temperature Temperature Source Pulse Rate Pulse Rate [Apical] Pulse Rate from SpO2 Sensor 83 89 Pulse Rhythm Pulse Rhythm [Apical] Pulse Strength [Apical] Respiratory Rate Respiratory Effort / Characteristics Respiratory Depth Respiratory Pattern Blood Pressure 129/71 Blood Pressure [Right Arm] Blood Pressure Mean 75 Blood Pressure Mean [Right Arm] Blood Pressure Position [Right Arm] Pulse Oximetry 96 99 Oxygen Delivery Method Room Air Room Air Sepsis Recent Fever Within 48 Hours Sepsis New/Unexplained Change in Mental Status Sepsis Action Taken by Nursing 11/26/24 18:06 11/26/24 18:12 11/26/24 18:15 Temperature Temperature Source Pulse Rate 87 Pulse Rate [Apical] Pulse Rate from SpO2 Sensor 88 84 Pulse Rhythm Pulse Rhythm [Apical] Pulse Strength [Apical] Respiratory Rate 22 Respiratory Effort / Characteristics Respiratory Depth Respiratory Pattern Blood Pressure 144/60 H Blood Pressure [Right Arm] Blood Pressure Mean 93 Blood Pressure Mean [Right Arm] Blood Pressure Position [Right Arm] Pulse Oximetry 100 93 Oxygen Delivery Method Room Air Room Air Sepsis Recent Fever Within 48 Hours Sepsis New/Unexplained Change in Mental Status Sepsis Action Taken by Nursing 11/26/24 18:18 11/26/24 18:33 11/26/24 18:45 Temperature Temperature Source Pulse Rate 83 94 H Pulse Rate [Apical] Pulse Rate from SpO2 Sensor 86 Pulse Rhythm Pulse Rhythm [Apical] Pulse Strength [Apical] Respiratory Rate 20 Respiratory Effort / Characteristics Respiratory Depth Respiratory Pattern Blood Pressure 121/95 Blood Pressure [Right Arm] Blood Pressure Mean 101 Blood Pressure Mean [Right Arm] Blood Pressure Position [Right Arm] Pulse Oximetry 99 Oxygen Delivery Method Room Air Sepsis Recent Fever Within 48 Hours Sepsis New/Unexplained Change in Mental Status Sepsis Action Taken by Nursing 11/26/24 18:48 11/26/24 19:00 11/26/24 19:00 Temperature Temperature Source Pulse Rate 114 H Pulse Rate [Apical] 100 H 100 H Pulse Rate from SpO2 Sensor 96 H Pulse Rhythm Pulse Rhythm [Apical] Regular Regular Pulse Strength [Apical] Normal Normal Respiratory Rate 18 18 Respiratory Effort / Characteristics Non-Labored Spontaneous Non-Labored Spontaneous Respiratory Depth Normal Normal Respiratory Pattern Regular Regular Blood Pressure Blood Pressure [Right Arm] 137/93 Blood Pressure Mean Blood Pressure Mean [Right Arm] 107 Blood Pressure Position [Right Arm] Semi-fowlers Pulse Oximetry 98 96 97 Oxygen Delivery Method Room Air Room Air Room Air Sepsis Recent Fever Within 48 Hours Sepsis New/Unexplained Change in Mental Status Sepsis Action Taken by Nursing Laboratory Data 11/26/24 14:41 11/26/24 14:41 Lab Results 11/26/24 11/26/24 11/26/24 Range/Units 14:41 15:11 15:25 WBC 20.07 H (4.8-10.8) K/ul RBC 4.76 (4.70-6.10) M/uL Hgb 15.3 (14.0-18.0) g/dl Hct 44.7 (42.0-52.0) % MCV 93.9 (80.0-100.0) fL MCH 32.1 (25.0-34.0) pg MCHC 34.2 (32.0-36.0) g/dL RDW Std Deviation 51.1 H (36.4-46.3) fL RDW Coeff of [place] 14.8 H (11.5-14.5) % Plt Count 196 (130-400) K/uL MPV 11.0 (9.4-12.4) fL Immature Gran % (Auto) 0.8 % Neut % (Auto) 94.6 % Lymph % (Auto) 1.7 % [place] % (Auto) 2.4 % Eos % (Auto) 0.3 % Baso % (Auto) 0.2 % Neut # (Auto) 18.97 H (1.40-6.50) K/uL Lymph # (Auto) 0.34 L (1.20-3.40) K/uL [place] # (Auto) 0.49 (0.11-0.59) K/uL Eos # (Auto) 0.06 (0.00-0.50) K/uL Baso # (Auto) 0.04 (0.00-0.20) K/uL Immature Gran # (Auto) 0.17 (0.01-0.20) K/uL PT Cancelled INR Cancelled VBG pH 7.38 (7.36-7.41) VBG pCO2 40 (38-50) mmHg VBG pO2 < 20 mmHg VBG HCO3 24 mmol/L VBG O2 Saturation < 60.0 % VBG Base Excess -1.3 mEq/L Sodium 134 L (136-145) mmol/L Potassium TNP Chloride 103 (98-107) mmol/L Carbon Dioxide 22 (21-32) mmol/L Anion Gap 9 (3-11) BUN 32 H (6-23) mg/dl Creatinine 2.40 H (0.6-1.4) mg/dl Est Cr Clr Drug Dosing 39.2 ml/min eGFR 26.78 BUN/Creatinine Ratio 13.3 (10-20) Glucose 96 (70-99(Fasting)) mg/dl Lactate 2.1 H* (0.4-2.0) mmol/L Calcium 8.8 (8.6-10.3) mg/dl Magnesium 1.4 L (1.7-2.4) mg/dl Total Bilirubin 1.2 H (0.2-1.0) mg/dl Direct Bilirubin TNP AST TNP ALT 17 (7-52) U/L Alkaline Phosphatase 86 (34-104) U/L Total Creatine Kinase 1012 H (30-223) U/L Troponin I High Sens 71.4 H* (0-20) pg/ml Total Protein 7.5 (6.0-8.3) gm/dl Albumin 3.0 L (3.4-5.0) gm/dl Procalcitonin Cancelled 5.12 H Urine Color Dark Yellow Urine Appearance Cloudy A (Clear) Urine pH 5.0 (4.5-7.5) Ur Specific [place] 1.021 (1.000-1.030) Urine Protein 3+ H (Negative) Urine Glucose (UA) Negative (Negative) Urine Ketones Trace H (Negative) Urine Blood 3+ H (Negative) Urine Nitrite Negative (Negative) Urine Bilirubin Negative (Negative) Urine Urobilinogen Negative (Negative) Ur Leukocyte Esterase Trace H (Negative) Urine WBC (Auto) 0-5 (0-5) /hpf Urine RBC (Auto) 11-20 H (0-2) /hpf U Hyaline Cast (Auto) >20 H (0-2) /lpf U Epithel Cells (Auto) 3-5 H (0-2) /hpf Urine Bacteria (Auto) None Seen (None Seen) Hyaline Casts Present A (None Presnt) /lpf Urine Mucus Present A (None Prsent) Urine Comment 11/26/24 11/26/24 Range/Units 15:33 17:26 WBC (4.8-10.8) K/ul RBC (4.70-6.10) M/uL Hgb (14.0-18.0) g/dl Hct (42.0-52.0) % MCV (80.0-100.0) fL MCH (25.0-34.0) pg MCHC (32.0-36.0) g/dL RDW Std Deviation (36.4-46.3) fL RDW Coeff of [place] (11.5-14.5) % Plt Count (130-400) K/uL MPV (9.4-12.4) fL Immature Gran % (Auto) % Neut % (Auto) % Lymph % (Auto) % [place] % (Auto) % Eos % (Auto) % Baso % (Auto) % Neut # (Auto) (1.40-6.50) K/uL Lymph # (Auto) (1.20-3.40) K/uL [place] # (Auto) (0.11-0.59) K/uL Eos # (Auto) (0.00-0.50) K/uL Baso # (Auto) (0.00-0.20) K/uL Immature Gran # (Auto) (0.01-0.20) K/uL PT 14.1 H INR 1.3 H VBG pH (7.36-7.41) VBG pCO2 (38-50) mmHg VBG pO2 mmHg VBG HCO3 mmol/L VBG O2 Saturation % VBG Base Excess mEq/L Sodium (136-145) mmol/L Potassium Chloride (98-107) mmol/L Carbon Dioxide (21-32) mmol/L Anion Gap (3-11) BUN (6-23) mg/dl Creatinine (0.6-1.4) mg/dl Est Cr Clr Drug Dosing ml/min eGFR BUN/Creatinine Ratio (10-20) Glucose (70-99(Fasting)) mg/dl Lactate 1.7 (0.4-2.0) mmol/L Calcium (8.6-10.3) mg/dl Magnesium (1.7-2.4) mg/dl Total Bilirubin (0.2-1.0) mg/dl Direct Bilirubin AST ALT (7-52) U/L Alkaline Phosphatase (34-104) U/L Total Creatine Kinase (30-223) U/L Troponin I High Sens 80.0 H* (0-20) pg/ml Total Protein (6.0-8.3) gm/dl Albumin (3.4-5.0) gm/dl Procalcitonin Urine Color Urine Appearance (Clear) Urine pH (4.5-7.5) Ur Specific [place] (1.000-1.030) Urine Protein (Negative) Urine Glucose (UA) (Negative) Urine Ketones (Negative) Urine Blood (Negative) Urine Nitrite (Negative) Urine Bilirubin (Negative) Urine Urobilinogen (Negative) Ur Leukocyte Esterase (Negative) Urine WBC (Auto) (0-5) /hpf Urine RBC (Auto) (0-2) /hpf U Hyaline Cast (Auto) (0-2) /lpf U Epithel Cells (Auto) (0-2) /hpf Urine Bacteria (Auto) (None Seen) Hyaline Casts (None Presnt) /lpf Urine Mucus (None Prsent) Urine Comment Administered Medications Parenteral Electrolytes (Plasma-Lyte A Ph 7.4) 1,000 mls @ 150 mls/hr IV .[id number] ROYA Stop: 11/29/24 21:14 Last Admin: 11/26/24 22:28 Dose: 150 mls/hr Documented By: CAROLYN Discontinued Medications Sodium Chloride (Nss) 1,000 mls @ 250 mls/hr IV .Q4H ROYA Stop: 11/29/24 14:44 Last Admin: 11/26/24 22:32 Dose: Not Given Documented By: Infusion: 11/26/24 20:00 Dose: Infused Documented By: Admin: 11/26/24 16:06 Dose: 250 mls/hr Documented By: LUIS Cefepime HCl (Maxipime 2000mg) 2,000 mg in 20 mls @ 5 mls/min IV NOW STA Stop: 11/26/24 15:02 Last Admin: 11/26/24 16:07 Dose: 5 mls/min Documented By: LUIS Vancomycin HCl 2,500 mg/ (Sodium Chloride) 550 mls @ 180 mls/hr IV NOW ONE Stop: 11/26/24 18:03 Last Infusion: 11/26/24 20:01 Dose: Infused Documented By: Admin: 11/26/24 16:10 Dose: 180 mls/hr Documented By: LUIS Magnesium Sulfate/Dextrose (Magnesium Sulfate / D5w) 1 gm in 100 mls @ 100 mls/hr IV Q1H ROYA Stop: 11/26/24 17:44 Last Infusion: 11/26/24 19:03 Dose: Infused Documented By: Admin: 11/26/24 17:24 Dose: 100 mls/hr Documented By: Infusion: 11/26/24 17:23 Dose: Infused Documented By: Admin: 11/26/24 16:23 Dose: 100 mls/hr Documented By: LUIS Warfarin Sodium (Warfarin Sod 5 Mg Tab) 5 mg PO NOW ONE Stop: 11/26/24 21:20 Last Admin: 11/26/24 22:28 Dose: 5 mg Documented By: CAROLYN Imaging Data Radiologist's Impression: Chest X-Ray 11/26/24 14:37 SINGLE VIEW CHEST CLINICAL HISTORY: Sepsis FINDINGS: 3 AP, portable, semierect chest radiographs are compared to study dated 09/10/2023. Correlation is made with chest CT dated 09/23/2019. The heart is enlarged noting mild atherosclerotic calcification of the thoracic aorta. There is pulmonary vascular congestion. Scarring/atelectasis is noted at the lung bases. No airspace consolidation or large pleural effusion is identified. There are tiny calcified granulomas. No pneumothorax is seen. The skeletal structures are osteopenic. The bony thorax is grossly intact. IMPRESSION: 1. Cardiomegaly with pulmonary vascular congestion. 2. No airspace consolidation or large pleural effusion is identified. ACT 112: Negative or not required by law. Electronically signed by: Aly Devine M.D. 11/26/2024 3:[address] 11/26/24 14:40 CT cervical spine without IV contrast History: Trauma Comparison: None Technique: Using multidetector thin collimation helical acquisition technique, axial, coronal and sagittal CT images through the cervical spine were obtained without intravenous contrast. Dose reduction techniques were achieved by using automatic exposure control and/or adjustment of mA and/or kV according to patient size and/or use of iterative reconstruction technique. Findings: The cervical vertebrae are normally aligned. Normal cervical lordosis. No acute fracture or subluxation. No prevertebral edema. Moderate to severe multilevel discogenic degenerative changes, most pronounced at C5-6 and C6-7. There are hypertrophic degenerative facet changes. No abnormality of the paraspinous soft tissues. Impression: No acute fracture or traumatic subluxation. Electronically signed by Mo Babb 11-26-2024 5:[address] 11/26/24 14:40 CT head without contrast History: Trauma Comparison: 06/27/2023 Technique: Using multidetector thin collimation helical acquisition technique, axial, coronal and sagittal CT images from the skull base to the vertex were obtained without intravenous contrast. Dose reduction techniques were achieved by using automatic exposure control and/or adjustment of mA and/or kV according to patient size and/or use of iterative reconstruction technique. Findings: No intracranial hemorrhage, mass-effect, or midline shift. The ventricles are proportionate to the cerebral sulci. The stanton to white matter differentiation of the cerebral hemispheres is preserved. The basal cisterns are patent. The visualized paranasal sinuses are clear. Mastoid air cells are clear. Impression: No acute intracranial pathology. Electronically signed by Mo Babb 11-26-2024 5:39 PM Pelvis X-Ray 11/26/24 14:40 XR pelvis 1-2V routine CLINICAL HISTORY: Pain status post trauma COMPARISON: None FINDINGS: 2 views reveal no acute fractures or dislocations. There are mild degenerative changes present. IMPRESSION: No acute fractures or dislocations identified. ACT 112: Negative or not required by law. Electronically signed by: Christiano Liu M.D. 11/26/2024 3:09 PM Abdomen/Pelvis CT 11/26/24 15:37 EXAMINATION: CT of the abdomen and pelvis performed without contrast TECHNIQUE: Helical CT images from the lung bases through the symphysis pubis were obtained without contrast. Coronal and sagittal reformatted images were generated at a workstation for further assessment. Dose reduction techniques were achieved by using automatic exposure control and/or adjustment of mA and/or kV according to patient size and/or use of iterative reconstruction technique. COMPARISON: 10/30/2022 HISTORY: Trauma FINDINGS: Lower chest: No consolidation. No pleural effusion or pneumothorax. Liver: No suspicious liver lesions. Gallbladder: No gallstones. No evidence of acute cholecystitis. Spleen: Normal size. Pancreas: No suspicious pancreatic lesions. The pancreatic duct is not dilated. Adrenal glands: No adrenal nodules. Kidneys: No hydronephrosis or obstructing renal stones. Several bilateral renal cysts are again seen, some of which are high attenuating compatible with a hemorrhagic/proteinaceous cyst, and overall are not significantly changed, however there is 1 cyst in the posterior right kidney, measuring 7.8 cm, which has significantly decreased in size, previously measuring 14.0 cm. Bladder / Pelvic organs: Unremarkable. Bowel: No bowel obstruction. No abnormal bowel wall thickening. The appendix is unremarkable. Lymph nodes: No retroperitoneal, mesenteric, or pelvic lymphadenopathy. Peritoneum / Retroperitoneum: No free fluid or air within the abdomen. Vessels: No infrarenal aortic aneurysm. Bones and soft tissues: No suspicious lesion in the bones. Multilevel severe degenerative disc height loss of the lumbar spine. IMPRESSION: No acute finding in the abdomen or pelvis Electronically signed by Mo Babb 11-26-2024 5:39 PM Discharge Plan Visit Data Chief Complaint: Fall Stated Complaint: INJURY ALERT, FALL, CONFUSION ED Provider: Akua White Discharge Problem: Cellulitis, Fall, Elevated troponin, CKD (chronic kidney disease), Rhabdomyolysis Patient Disposition: Admitted As Inpatient Condition: Fair Discharge Instructions Interventions: ED Discharge Assessment Last Done: 11/26/24 22:28 Discharge Problem: Fall Qualifiers: Encounter type: initial encounter Qualified Code(s): W19.XXXA - Unspecified fall, initial encounter
--- NOTE | 2024-11-26 17:40 | CT Scan Report ---
CT head without contrast History: Trauma Comparison: 06/27/2023 Technique: Using multidetector thin collimation helical acquisition technique, axial, coronal and sagittal CT images from the skull base to the vertex were obtained without intravenous contrast. Dose reduction techniques were achieved by using automatic exposure control and/or adjustment of mA and/or kV according to patient size and/or use of iterative reconstruction technique. Findings: No intracranial hemorrhage, mass-effect, or midline shift. The ventricles are proportionate to the cerebral sulci. The stanton to white matter differentiation of the cerebral hemispheres is preserved. The basal cisterns are patent. The visualized paranasal sinuses are clear. Mastoid air cells are clear. Impression: No acute intracranial pathology. Electronically signed by Mo Babb 11-26-2024 5:39 PM
--- NOTE | 2024-11-26 17:40 | CT Scan Report ---
EXAMINATION: CT of the abdomen and pelvis performed without contrast TECHNIQUE: Helical CT images from the lung bases through the symphysis pubis were obtained without contrast. Coronal and sagittal reformatted images were generated at a workstation for further assessment. Dose reduction techniques were achieved by using automatic exposure control and/or adjustment of mA and/or kV according to patient size and/or use of iterative reconstruction technique. COMPARISON: 10/30/2022 HISTORY: Trauma FINDINGS: Lower chest: No consolidation. No pleural effusion or pneumothorax. Liver: No suspicious liver lesions. Gallbladder: No gallstones. No evidence of acute cholecystitis. Spleen: Normal size. Pancreas: No suspicious pancreatic lesions. The pancreatic duct is not dilated. Adrenal glands: No adrenal nodules. Kidneys: No hydronephrosis or obstructing renal stones. Several bilateral renal cysts are again seen, some of which are high attenuating compatible with a hemorrhagic/proteinaceous cyst, and overall are not significantly changed, however there is 1 cyst in the posterior right kidney, measuring 7.8 cm, which has significantly decreased in size, previously measuring 14.0 cm. Bladder / Pelvic organs: Unremarkable. Bowel: No bowel obstruction. No abnormal bowel wall thickening. The appendix is unremarkable. Lymph nodes: No retroperitoneal, mesenteric, or pelvic lymphadenopathy. Peritoneum / Retroperitoneum: No free fluid or air within the abdomen. Vessels: No infrarenal aortic aneurysm. Bones and soft tissues: No suspicious lesion in the bones. Multilevel severe degenerative disc height loss of the lumbar spine. IMPRESSION: No acute finding in the abdomen or pelvis Electronically signed by Mo Babb 11-26-2024 5:39 PM
--- NOTE | 2024-11-26 17:40 | CT Scan Report ---
CT cervical spine without IV contrast History: Trauma Comparison: None Technique: Using multidetector thin collimation helical acquisition technique, axial, coronal and sagittal CT images through the cervical spine were obtained without intravenous contrast. Dose reduction techniques were achieved by using automatic exposure control and/or adjustment of mA and/or kV according to patient size and/or use of iterative reconstruction technique. Findings: The cervical vertebrae are normally aligned. Normal cervical lordosis. No acute fracture or subluxation. No prevertebral edema. Moderate to severe multilevel discogenic degenerative changes, most pronounced at C5-6 and C6-7. There are hypertrophic degenerative facet changes. No abnormality of the paraspinous soft tissues. Impression: No acute fracture or traumatic subluxation. Electronically signed by Mo Babb 11-26-2024 5:39 PM
--- NOTE | 2024-11-26 18:18 | History & Physical Report ---
Date of Service November 26, 2024 Assessment & Plan (1) Fall: (2) Sepsis: (3) Acute kidney injury superimposed on CKD: (4) Venous stasis dermatitis of both lower extremities: Plan Santi is a 78yo male with medical history of b/l lower extremity chronic venous stasis dermatitis, prior b/l LE cellulitis treated with keflex within the last 1-2mos, atrial fibrillation, CKD III, and hypothyroidism, brought to ER by EMS due to his son's concern about an unwitnessed fall, being admitted for weakness w/ unwitnessed fall and sepsis with concern for lower extremity source, failed outpatient treatment of cellulitis within last 1-2mos. Requires admission for IV antibiotics and PT/OT, case management consulted to discuss escalation of healthcare monitoring. #Fall, unwitnessed #Weakness Based on history provided, likely due to generalized and particularly lower extremity weakness, likely a component of ambulatory dysfunction related to lower extremity stiffness due to worsening of venous stasis changes and suspected cellulitis; echo with noted mild-moderate aortic stenosis and prior documentation of LVEF as low as 40%, raises the suspicion of a syncopal event possibly related to progression of and/or cardiomyopathy CT head with no acute or chronic intracranial pathology - see plan below for treatment of lower extremities - ordered TTE to evaluate for progression of prior known aortic stenosis and cardiomyopathy - PT/OT ordered, case mgmt consult ordered #Sepsis #Chronic venous stasis changes w/ dermatitis #Cellulitis, lower extremity, suspected WBCs 20, elevated procal, tachycardic Started empirically on vancomycin and cefepime due to prior wound cx growing MDR S. aureus and Pseudomonas - continue above abx, pending blood cultures with dosing based on eGFR, currently 27; new wound cultures ordered: cefepine- 2000mg q24h; vancomycin 15- 20mg/kg body weight (~2,500mg) q24-48 Adjust abx based on sensitivities - wound care consult ordered - CBC AM #Rhabdomyolysis #DALE on CKD III #Hematuria Baseline creatinine 1.7-1.9 in Mar 2024; UA with 3+ blood, RBCs - creatinine elevation to 1012 likely due to combination of dehydration and rhabdomyolysis from fall and being stuck on floor for 6-7hrs Given NS at 250cc/hr Starting plasmalyte at 150cc/hr - BMP AM #Elevated troponin #Cardiomyopathy, known #Aortic stenosis, mild-moderate Trop 70s -> 80, denies any chest pain or SOB, likely inc due to demand ischemia Trend to peak, continue monitoring on telemetry Last echo with LVEF 60% and mild-moderate aortic stenosis in Nov 2021 but reported to be as low as 40%; pt reported interval worsening of venous stasis changes Ordered echocardiogram but not urgent based on lack of shortness of breath, no supplemental O2 requirement, and lack of chest pain; reasonable to obtain while inpatient due to possible worsening of LVEF and progression of aortic stenosis consider acute weakness and worsening venous stasis changes #Subtherapeutic INR #Atrial fibrillation, on warfarin Was 1.3 today, reported therapeutic range is 2-3 Will give additional warfarin 5mg today, no acute concerns for bleeding PT/INR in AM Otherwise continue warfarin at current home regimen Continue metoprolol succinate 100mg daily #Obstructive sleep apnea Has CPAP at home but reportedly non-compliant Ordered CPAP while inpatient Chronic stable: hypothyroidism- continue levothyroxine HLD- continue rosuvastatin VTE ppx: continue home warfarin Dispo: med/surg tele History of Present Illness Chief Complaint: fall, b/l leg pain Primary Care Provider: Clovis Hancock is a 78yo male with medical history of b/l lower extremity chronic venous stasis dermatitis, prior b/l LE cellulitis treated with keflex within the last 1-2mos, chronic atrial fibrillation anticoagulated on warfarin, CKD III with baseline creatinine 1.7-1.9 in Mar 2024, cardiomyopathy, mild-moderate aortic stenosis in Nov 2021, hypothyroidism, and DERREK brought to ER by EMS due to his son's concern about an unwitnessed fall, being admitted for weakness w/ unwitnessed fall and concern for b/l lower extremity cellulitis. Legs: states his legs have had quite severe venous stasis changes and dermatitis for about a year now. Notes they have become more red with spread up to upper thighs, more swollen, and tighter within the last week or so. Denies any pain at baseline, only with pressure. Denies any significant trauma to legs, denies any new medications, skin products, soaps, plant or animal exposures. Denies any fever, body aches, or chills. Denies any painkillers or skin meds/products other than his usual wound care regimen of desoxymetasone and vaseline q3 days. Endorses showering every other day. Fall: states today he was on his way from his bed to the bathroom when he fell onto his bottom to carpeted bedroom floor, found by son 6-7hrs after fall. Endorses he was physically unable to get up despite efforts. Initially stated he was on his way to the bathroom and then all of a sudden he was sitting on the floor with his back against his bed. Denied any dizziness, lightheadedness, SOB, chest pain, or head trauma. Ultimately denied any loss of consciousness between heading to the bathroom and ending up on the floor. Denies any significant issues with falls in the past. Notes his oral intake has been less than usual within the last week, though endorses good fluid intake. Home: lives with his son in a private home with 3 floors. - has a cane and a walker but generally gets around independently, including stairs Home health: only wound care nurse q3 days, applies desoxymetasone and vaseline - open to case mgmt to discuss options for escalation of care ER course: given NS 1L at 250cc/hr, cefepime 2g, vancomycin 2,500mg in NS, mag sulfate x2 bags Allergies Allergy/AdvReac Type Severity Reaction Status Date / Time furosemide Allergy Severe Caused Unverified 11/12/24 13:07 issue with kidneys Sulfa (Sulfonamide Allergy Severe Hives, Unverified 11/12/24 13:07 Antibiotics) skin sloughing sulfamethoxazole Allergy Severe Hives, Verified 11/12/24 13:07 [From skin Sulfamethoxazole-Trimethoprim] sloughing trimethoprim Allergy Severe Hives, Verified 11/12/24 13:07 [From skin Sulfamethoxazole-Trimethoprim] sloughing hydrochlorothiazide Allergy Unknown "shut down Verified 11/12/24 13:07 kidneys" Home Medications Medication Instructions Recorded Confirmed Type acetaminophen 500 mg tablet 1,000 mg PO BID PRN Pain 01/16/22 11/26/24 History levothyroxine 175 mcg tablet 175 mcg PO DAILY 02/14/22 11/26/24 History rosuvastatin 5 mg tablet 5 mg PO QAM 09/10/23 11/26/24 History metoprolol succinate 100 mg 100 mg PO HS #0 tabs 10/15/23 11/26/24 History tablet,extended release 24 hr ferrous sulfate 325 mg (65 mg 325 mg PO DAILY 02/18/24 11/26/24 History iron) tablet (Feosol) allopurinol 100 mg tablet 200 mg PO QAM 05/27/24 11/26/24 History cholecalciferol (vitamin D3) 25 50 mcg PO QAM 05/27/24 11/26/24 History mcg (1,000 unit) tablet (Vitamin D3) desoximetasone 0.25 % topical 1 applic topical DAILY #100 grams 09/09/24 11/26/24 Rx ointment warfarin 5 mg tablet See Rx Instructions PO UD #40 tabs 10/15/24 11/26/24 Rx cephalexin 500 mg capsule 500 mg PO TID 10 days #30 caps 11/14/24 11/26/24 Rx Past Med/Surg History Problem List Acute kidney injury superimposed on CKD Rhabdomyolysis (Acute) CKD (chronic kidney disease) (Acute) Elevated troponin (Acute) Fall (Acute) B12 deficiency anemia Anemia Abnormal ankle brachial index Venous ulcer of left leg Dyshidrotic eczema Cellulitis of left leg (Acute) Cellulitis of left anterior lower leg History of DVT (deep vein thrombosis) PAD (peripheral artery disease) Toe infection Right-sided heart failure (HFpEF) heart failure with preserved ejection fraction DALE (acute kidney injury) (Acute) Venous stasis dermatitis of both lower extremities Acute venous stasis dermatitis of both legs Lab test negative for COVID-19 virus (Acute) Hypothyroidism Diabetic foot infection Diabetes DALE (acute kidney injury) Cellulitis of left foot (Acute) Vitamin D deficiency Skin tear of right hand without complication (Acute) Venous stasis dermatitis (Acute) Current use of intermediate teacher anticoagulation (Chronic) Chronic venous insufficiency (Chronic) Cellulitis of foot (Acute) Open wound of foot (Acute) Anticoagulated on Coumadin (Acute) Nonischemic cardiomyopathy Sleep apnea (Chronic) cpap Thoracic aortic aneurysm Hypothyroidism (Acute) Right shoulder strain (Acute) Chest wall contusion (Acute) Left leg swelling (Acute) Abnormal tympanic membrane of right ear Left otitis externa Foreign body of ear, left Aortic valve sclerosis (Acute) Rosacea (Acute) Gout (Chronic) Pressure ulcer of right foot, stage 2 (Acute) Acute retention of urine Hypospadias, penile Anticoagulated on Coumadin (Chronic) Hypertension (Acute) Chronic atrial fibrillation (Chronic) Chronic kidney disease, stage III (moderate) (Chronic) Chronic ulcer of left foot (Chronic) Medical History Cellulitis Venous stasis ulcer Leukocytosis Sepsis History of basal cell carcinoma Penile hypospadias BPH (benign prostatic hyperplasia) Renal cyst On anticoagulant therapy Hearing deficit Prediabetes Obesity Atrial fibrillation, chronic Surgical History History of esophagogastroduodenoscopy (EGD) Family History Other Hearing loss No family history of adverse response to anesthesia No family history of bleeding disorder Denies family history of Heart disease Allergies Cancer Hypertension Stroke Asthma Social History Smoking Status: Never smoker Tobacco Type: Cigarettes packs per day: 1; Second Hand Exposure: No; Do You Dip or Chew Tobacco: No; Hx Alcohol Use: Yes Alcohol type: hard liquor Alcohol Intake Frequency: 2-4 x/Month Alcohol Intake Frequency Comment: 1 bottle of champagne / week Hx Substance Use: No Preferred Language: [place]er Communication Ability: Effective Communication Ability Comment: [place], does not have h/a here Visual Impairment: Limited Hearing Ability: Hard 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 Feels Safe at Home: Yes Diet: regular caffeine: Yes (1 8oz cup) Seatbelt Use: always Do you think of yourself as: straight/heterosexual Gender Identity: Male Assistive Devices: Cane, Glasses, Hearing Aid - Bilateral and Walker Review of Systems 2 Review of Systems: per HPI Physical Exam 2 Physical Exam: Gen: A&Ox3, appearing in no acute distress, satting mid-upper 90s on room air HEENT: EOM intact, anicteric sclerae, PERRL b/l CV: borderline tachy rate, irregular rhythm, +s1/s2, distant heart sounds thus no obvious m/r/g, 2+ radial pulses b/l; unable to palpate LE pulses due to edema Resp: air movement limited by body habitus, otherwise clear to auscultation b/l, no wheeze/rales/rhonchi GI/Abd: normo-hyperactive BS, no distension other than obesity, no guarding, no tenderness to palpation of entire abdomen MSK: LLE with raised dry, hardened/thickened callous from mid-wood down to foot, otherwise b/l LE with base of erythema and nonpitting edema, tender to palpation in most areas of erythema and swelling up to upper thighs, several areas of gauze overlying more raw skin but no active bleeding or oozing seen; malodorous - 5/5 strength in b/l UE, 4/5 strength i n b/l LE Neuro: no facial droop, speech intact, no focal deficits, wiggles toes on command - unable to assess gait at time of exami nation in ER room Psych: fair eye contact, mood-affect congruence Results & Data Results & Data Vital Signs (Past 12 Hours) Vital Signs Temp Pulse Pulse Resp BP BP Pulse Ox 11/26/24 18:06 100 11/26/24 18:00 129/71 11/26/24 17:57 99 11/26/24 17:51 96 11/26/24 17:45 123/79 11/26/24 17:27 99 11/26/24 17:00 137/81 11/26/24 16:57 88 27 H 94 11/26/24 16:45 128/77 11/26/24 16:45 83 27 H 94 11/26/24 16:39 86 24 94 11/26/24 16:15 93 H 23 98 11/26/24 16:15 135/73 11/26/24 16:00 139/77 11/26/24 16:00 139/77 11/26/24 16:00 82 24 96 11/26/24 15:45 136/79 11/26/24 15:45 92 H 25 H 93 11/26/24 15:39 153 H 24 85 L 11/26/24 15:30 126/75 11/26/24 15:30 126/75 11/26/24 15:21 84 26 H 98 11/26/24 15:15 92 H 27 H 119/75 92 11/26/24 15:07 92 H 27 H 119/75 92 11/26/24 15:03 92 H 27 H 119/75 92 11/26/24 14:52 85 19 134/68 94 11/26/24 14:47 80 27 H 134/68 95 11/26/24 14:46 86 26 H 93 11/26/24 14:46 82 26 H 134/68 95 11/26/24 14:44 90 11/26/24 14:31 37.2 C 91 H 18 140/71 97 O2 Del Method 11/26/24 18:06 Room Air 11/26/24 18:00 11/26/24 17:57 Room Air 11/26/24 17:51 Room Air 11/26/24 17:45 11/26/24 17:27 Room Air 11/26/24 17:00 11/26/24 16:57 Room Air 11/26/24 16:45 11/26/24 16:45 Room Air 11/26/24 16:39 Room Air 11/26/24 16:15 Room Air 11/26/24 16:15 11/26/24 16:00 11/26/24 16:00 11/26/24 16:00 Room Air 11/26/24 15:45 11/26/24 15:45 11/26/24 15:39 11/26/24 15:30 11/26/24 15:30 11/26/24 15:21 11/26/24 15:15 Room Air 11/26/24 15:07 11/26/24 15:03 Room Air 11/26/24 14:52 Room Air 11/26/24 14:47 Room Air 11/26/24 14:46 Room Air 11/26/24 14:46 Room Air 11/26/24 14:44 11/26/24 14:31 Room Air Laboratory Results Laboratory Results WBC 20.07 K/ul (4.8-10.8) H 11/26/24 14:41 RBC 4.76 M/uL (4.70-6.10) 11/26/24 14:41 Hgb 15.3 g/dl (14.0-18.0) 11/26/24 14:41 Hct 44.7 % (42.0-52.0) 11/26/24 14:41 MCV 93.9 fL (80.0-100.0) 11/26/24 14:41 MCH 32.1 pg (25.0-34.0) 11/26/24 14:41 MCHC 34.2 g/dL (32.0-36.0) 11/26/24 14:41 RDW Std Deviation 51.1 fL (36.4-46.3) H 11/26/24 14:41 RDW Coeff of [place] 14.8 % (11.5-14.5) H 11/26/24 14:41 Plt Count 196 K/uL (130-400) 11/26/24 14:41 MPV 11.0 fL (9.4-12.4) 11/26/24 14:41 Immature Gran % (Auto) 0.8 % 11/26/24 14:41 Neut % (Auto) 94.6 % 11/26/24 14:41 Lymph % (Auto) 1.7 % 11/26/24 14:41 [place] % (Auto) 2.4 % 11/26/24 14:41 Eos % (Auto) 0.3 % 11/26/24 14:41 Baso % (Auto) 0.2 % 11/26/24 14:41 Neut # (Auto) 18.97 K/uL (1.40-6.50) H 11/26/24 14:41 Lymph # (Auto) 0.34 K/uL (1.20-3.40) L 11/26/24 14:41 [place] # (Auto) 0.49 K/uL (0.11-0.59) 11/26/24 14:41 Eos # (Auto) 0.06 K/uL (0.00-0.50) 11/26/24 14:41 Baso # (Auto) 0.04 K/uL (0.00-0.20) 11/26/24 14:41 Immature Gran # (Auto) 0.17 K/uL (0.01-0.20) 11/26/24 14:41 PT 14.1 Seconds (9.0-12.0) H 11/26/24 15:33 INR 1.3 (0.9-1.1) H 11/26/24 15:33 VBG pH 7.38 (7.36-7.41) 11/26/24 15:11 VBG pCO2 40 mmHg (38-50) 11/26/24 15:11 VBG pO2 < 20 mmHg 11/26/24 15:11 VBG HCO3 24 mmol/L 11/26/24 15:11 VBG O2 Saturation < 60.0 % 11/26/24 15:11 VBG Base Excess -1.3 mEq/L 11/26/24 15:11 Sodium 134 mmol/L (136-145) L 11/26/24 14:41 Potassium TNP 11/26/24 14:41 Chloride 103 mmol/L (98-107) 11/26/24 14:41 Carbon Dioxide 22 mmol/L (21-32) 11/26/24 14:41 Anion Gap 9 (3-11) 11/26/24 14:41 BUN 32 mg/dl (6-23) H 11/26/24 14:41 Creatinine 2.40 mg/dl (0.6-1.4) H 11/26/24 14:41 Est Cr Clr Drug Dosing 39.2 ml/min 11/26/24 14:41 eGFR 26.78 11/26/24 14:41 BUN/Creatinine Ratio 13.3 (10-20) 11/26/24 14:41 Glucose 96 mg/dl (70-99(Fasting)) 11/26/24 14:41 Lactate 1.7 mmol/L (0.4-2.0) 11/26/24 17:26 Calcium 8.8 mg/dl (8.6-10.3) 11/26/24 14:41 Magnesium 1.4 mg/dl (1.7-2.4) L 11/26/24 14:41 Total Bilirubin 1.2 mg/dl (0.2-1.0) H 11/26/24 14:41 Direct Bilirubin TNP 11/26/24 14:41 AST TNP 11/26/24 14:41 ALT 17 U/L (7-52) 11/26/24 14:41 Alkaline Phosphatase 86 U/L (34-104) 11/26/24 14:41 Total Creatine Kinase 1012 U/L (30-223) H 11/26/24 14:41 Troponin I High Sens 80.0 pg/ml (0-20) H* 11/26/24 17:26 Total Protein 7.5 gm/dl (6.0-8.3) 11/26/24 14:41 Albumin 3.0 gm/dl (3.4-5.0) L 11/26/24 14:41 Procalcitonin 5.12 ng/ml (0-0.5) H 11/26/24 15:25 Urine Color Dark Yellow 11/26/24 14:41 Urine Appearance Cloudy (Clear) A 11/26/24 14:41 Urine pH 5.0 (4.5-7.5) 11/26/24 14:41 Ur Specific Novelty 1.021 (1.000-1.030) 11/26/24 14:41 Urine Protein 3+ (Negative) H 11/26/24 14:41 Urine Glucose (UA) Negative (Negative) 11/26/24 14:41 Urine Ketones Trace (Negative) H 11/26/24 14:41 Urine Blood 3+ (Negative) H 11/26/24 14:41 Urine Nitrite Negative (Negative) 11/26/24 14:41 Urine Bilirubin Negative (Negative) 11/26/24 14:41 Urine Urobilinogen Negative (Negative) 11/26/24 14:41 Ur Leukocyte Esterase Trace (Negative) H 11/26/24 14:41 Urine WBC (Auto) 0-5 /hpf (0-5) 11/26/24 14:41 Urine RBC (Auto) 11-20 /hpf (0-2) H 11/26/24 14:41 U Hyaline Cast (Auto) >20 /lpf (0-2) H 11/26/24 14:41 U Epithel Cells (Auto) 3-5 /hpf (0-2) H 11/26/24 14:41 Urine Bacteria (Auto) None Seen (None Seen) 11/26/24 14:41 Hyaline Casts Present /lpf (None Presnt) A 11/26/24 14:41 Urine Mucus Present (None Prsent) A 11/26/24 14:41 Urine Comment 11/26/24 14:41 Nasal Screen MRSA (PCR) Negative (Negative) 11/26/24 19:56 Impressions Chest X-Ray 11/26/24 14:37 SINGLE VIEW CHEST CLINICAL HISTORY: Sepsis FINDINGS: 3 AP, portable, semierect chest radiographs are compared to study dated 09/10/2023. Correlation is made with chest CT dated 09/23/2019. The heart is enlarged noting mild atherosclerotic calcification of the thoracic aorta. There is pulmonary vascular congestion. Scarring/atelectasis is noted at the lung bases. No airspace consolidation or large pleural effusion is identified. There are tiny calcified granulomas. No pneumothorax is seen. The skeletal structures are osteopenic. The bony thorax is grossly intact. IMPRESSION: 1. Cardiomegaly with pulmonary vascular congestion. 2. No airspace consolidation or large pleural effusion is identified. ACT 112: Negative or not required by law. Electronically signed by: Aly Devine M.D. 11/26/2024 3:[address] 11/26/24 14:40 CT cervical spine without IV contrast History: Trauma Comparison: None Technique: Using multidetector thin collimation helical acquisition technique, axial, coronal and sagittal CT images through the cervical spine were obtained without intravenous contrast. Dose reduction techniques were achieved by using automatic exposure control and/or adjustment of mA and/or kV according to patient size and/or use of iterative reconstruction technique. Findings: The cervical vertebrae are normally aligned. Normal cervical lordosis. No acute fracture or subluxation. No prevertebral edema. Moderate to severe multilevel discogenic degenerative changes, most pronounced at C5-6 and C6-7. There are hypertrophic degenerative facet changes. No abnormality of the paraspinous soft tissues. Impression: No acute fracture or traumatic subluxation. Electronically signed by Mo Babb 11-26-2024 5:[address] 11/26/24 14:40 CT head without contrast History: Trauma Comparison: 06/27/2023 Technique: Using multidetector thin collimation helical acquisition technique, axial, coronal and sagittal CT images from the skull base to the vertex were obtained without intravenous contrast. Dose reduction techniques were achieved by using automatic exposure control and/or adjustment of mA and/or kV according to patient size and/or use of iterative reconstruction technique. Findings: No intracranial hemorrhage, mass-effect, or midline shift. The ventricles are proportionate to the cerebral sulci. The stanton to white matter differentiation of the cerebral hemispheres is preserved. The basal cisterns are patent. The visualized paranasal sinuses are clear. Mastoid air cells are clear. Impression: No acute intracranial pathology. Electronically signed by Mo Babb 11-26-2024 5:39 PM Pelvis X-Ray 11/26/24 14:40 XR pelvis 1-2V routine CLINICAL HISTORY: Pain status post trauma COMPARISON: None FINDINGS: 2 views reveal no acute fractures or dislocations. There are mild degenerative changes present. IMPRESSION: No acute fractures or dislocations identified. ACT 112: Negative or not required by law. Electronically signed by: Christiano Liu M.D. 11/26/2024 3:09 PM Abdomen/Pelvis CT 11/26/24 15:37 EXAMINATION: CT of the abdomen and pelvis performed without contrast TECHNIQUE: Helical CT images from the lung bases through the symphysis pubis were obtained without contrast. Coronal and sagittal reformatted images were generated at a workstation for further assessment. Dose reduction techniques were achieved by using automatic exposure control and/or adjustment of mA and/or kV according to patient size and/or use of iterative reconstruction technique. COMPARISON: 10/30/2022 HISTORY: Trauma FINDINGS: Lower chest: No consolidation. No pleural effusion or pneumothorax. Liver: No suspicious liver lesions. Gallbladder: No gallstones. No evidence of acute cholecystitis. Spleen: Normal size. Pancreas: No suspicious pancreatic lesions. The pancreatic duct is not dilated. Adrenal glands: No adrenal nodules. Kidneys: No hydronephrosis or obstructing renal stones. Several bilateral renal cysts are again seen, some of which are high attenuating compatible with a hemorrhagic/proteinaceous cyst, and overall are not significantly changed, however there is 1 cyst in the posterior right kidney, measuring 7.8 cm, which has significantly decreased in size, previously measuring 14.0 cm. Bladder / Pelvic organs: Unremarkable. Bowel: No bowel obstruction. No abnormal bowel wall thickening. The appendix is unremarkable. Lymph nodes: No retroperitoneal, mesenteric, or pelvic lymphadenopathy. Peritoneum / Retroperitoneum: No free fluid or air within the abdomen. Vessels: No infrarenal aortic aneurysm. Bones and soft tissues: No suspicious lesion in the bones. Multilevel severe degenerative disc height loss of the lumbar spine. IMPRESSION: No acute finding in the abdomen or pelvis Electronically signed by Mo Babb 11-26-2024 5:39 PM Supervising Physician Co-Signing Physician Notes Patient seen and examined, chart reviewed, case discussed with Dr. Lora and I agree with the assessment and plan as above. Patient with unwitnessed fall, prolonged down time of 6-7 hours Chronic venous stasis with stasis dermatitis - possible cellulitis Patient denies LOC during the fall On exam he is resting comfortably +S1/S2, irregularly irregular, no m/r/g Lungs CTA Abd soft, NT/ND Legs with bilateral venous stasis changes and thick hyperkeratosis present bilaterally. Redness of entire leg, warmth to touch. No crepitus, bullae, lymphangitis Assessment/Plan -Cefepime, Vancomycin, Wound care. Monitor closely for improvement -Plasmalyte at 150mL/hr, repeat CK in AM -Additional Coumadin tonight, repeat INR -Remainder as above Resident Activity Tracking Resident Involvement: Resident Care Provided Care Provided: Adult Hospital Medicine (1) Fall Encounter type: initial encounter Qualified Code(s): W19.XXXA - Unspecified fall, initial encounter (2) Sepsis Acute renal failure type: unspecified Sepsis acute organ dysfunction status: with acute organ dysfunction Sepsis type: sepsis due to unspecified organism S evere sepsis acute organ dysfunction type: acute renal failure Severe sepsis shock status: without septic shock Qualified Code(s): A41.9 - Sepsis, unspecified organism; R65.20 - Severe sepsis without septic shock; N17.9 - Acute kidney failure, unspecified
[2024-11-26] MEDS ORDERED: ACETAMINOPHEN 325 MG TAB PO PRN (22:28)
[2024-11-26] MEDS: WARFARIN SOD 5 MG TAB PO ONE (22:28)
[2024-11-26] MEDS ORDERED: POLYETHYLENE (MIRALAX) 17 GM PACK PO PRN (22:28)
[2024-11-26] MEDS: PLASMA-LYTE A 1,000 ML IV SCH (22:28)
[2024-11-26] MEDS ORDERED: VANCOMYCIN CONSULT ACTIVE PRN (22:44)
[2024-11-26] MEDS ORDERED: VANCOMYCIN HCL 2,000 MG in SODIUM CHLORIDE 0.9% 500 ML IV SCH (23:00)
[2024-11-26 23:45] LABS: Potassium 4.5 mmol/L (3.5-5.1)
[2024-11-27] MEDS: METOPROLOL SUCC 50MG EXT REL TAB PO SCH (01:55)
[2024-11-27] MEDS: CEFEPIME 1000MG 1,000 MG/10 ML SYR IV SCH (04:34)
[2024-11-27] MEDS: LEVOTHYROXINE SODIUM 175 MCG TABLET PO SCH (05:51)
[2024-11-27 06:19] LABS: Hematocrit (blood only) 41.3 % (42.0-52.0); Hemoglobin 14.2 g/dl (14.0-18.0); Mean Corpuscular Hemoglobin 32.5 pg (25.0-34.0); Mean Corpuscular Volume 94.5 fL (80.0-100.0); Platelet Count 182 K/uL (130-400); RDW Standard Deviation 52.7 fL (36.4-46.3); Red Blood Count 4.37 M/uL (4.70-6.10); White Blood Count 15.74 K/ul (4.8-10.8)
[2024-11-27 06:43] LABS: Anion Gap 6.0 (3-11); Blood Urea Nitrogen 34.0 mg/dl (6-23); Calcium 8.0 mg/dl (8.6-10.3); Carbon Dioxide 22.0 mmol/L (21-32); Chloride 107.0 mmol/L (98-107); Creatine Kinase 425.0 U/L (30-223); Creatinine Clr Calc Pharmacy 43.4 ml/min; Glucose 124.0 mg/dl (70-99(Fasting)); Potassium 4.2 mmol/L (3.5-5.1); Sodium 135.0 mmol/L (136-145)
[2024-11-27 06:53] LABS: INR 1.3 (0.9-1.1); Prothrombin Time 13.9 Seconds (9.0-12.0)
[2024-11-27] MEDS: ROSUVASTATIN CALCIUM 5 MG TAB PO SCH (08:25)
--- NOTE | 2024-11-27 09:59 | Pharmacy Report ---
Pharmacy PK ABX Note - Date of Service November 27, 2024 - Assessment and Plan Assessment 78 year old M started on vancomycin and cefepime for b/l lower extremity cellulitis. 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 PMHx significant for CKD III, chronic afib on warfarin, cardiomyopathy. Presenting after unwitnessed fall, weakness. Per previous records patient has been on numerous courses of abx for LE cellulitis in the past. Hx of PA, acinetobacter, MSSA on previous foot/leg cultures. Plan Vancomycin * Loading dose: 2500 mg IV x 1 * Maintenance dose: 1250 mg IV every 24 hours * Regimen is predicted to achieve target AUC/GABINO of 400-600 mg/L.hr * Will plan to order vancomycin level in next 2-3 days to ensure stable Pharmacy will continue to follow and will adjust dose/frequency as necessary. Thank you. Pharmacy has transitioned to AUC monitoring for vancomycin. AUC/GABINO is the preferred PK/PD target and is associated with decreased risk of nephrotoxicity compared to traditional trough targets.
[2024-11-27] MEDS: VANCOMYCIN HCL 1,250 MG in SODIUM CHLORIDE 0.9% 250 ML IV SCH (11:00)
--- NOTE | 2024-11-27 11:18 | Hospitalist Progress Note ---
Date of Service November 27, 2024 Assessment & Plan (1) Fall: (2) Acute kidney injury superimposed on CKD: (3) Venous stasis dermatitis of both lower extremities: Plan Santi is a 78yo male with medical history of b/l lower extremity chronic venous stasis dermatitis, prior b/l LE cellulitis treated with keflex within the last 1-2mos, atrial fibrillation, CKD III, and hypothyroidism, brought to ER by EMS due to his son's concern about an unwitnessed fall, being admitted for weakness w/ unwitnessed fall and sepsis with concern for lower extremity source, failed outpatient treatment of cellulitis within last 1-2mos. Requires admission for IV antibiotics and PT/OT, case management consulted to discuss escalation of healthcare monitoring. #Fall, unwitnessed #Weakness Based on history provided, likely due to generalized and particularly lower extremity weakness, likely a component of ambulatory dysfunction related to lower extremity stiffness due to worsening of venous stasis changes and suspected cellulitis; echo with noted mild-moderate aortic stenosis and prior documentation of LVEF as low as 40%, raises the suspicion of a syncopal event possibly related to progression of and/or cardiomyopathy CT head with no acute or chronic intracranial pathology - see plan below for treatment of lower extremities - ordered TTE to evaluate for progression of prior known aortic stenosis and cardiomyopathy - PT/OT ordered, case mgmt consult ordered #Sepsis #Chronic venous stasis changes w/ dermatitis #Cellulitis, lower extremity, suspected WBCs 15, elevated procal, tachycardic Started empirically on vancomycin and cefepime due to prior wound cx growing MDR S. aureus and Pseudomonas - continue above abx, pending blood cultures with dosing based on eGFR, currently 27; new wound cultures ordered: cefepine- 2000mg q24h; vancomycin 15- 20mg/kg body weight (~2,500mg) q24-48 Adjust abx based on sensitivities - Continue wound care consult. - CBC AM #Rhabdomyolysis #DALE on CKD III #Hematuria Baseline creatinine 1.7-1.9 in Mar 2024; UA with 3+ blood, RBCs - creatinine elevation to 1012 likely due to combination of dehydration and rhabdomyolysis from fall and being stuck on floor for 6-7hrs Given NS at 250cc/hr Starting plasmalyte at 150cc/hr - BMP AM #Elevated troponin #Cardiomyopathy, known #Aortic stenosis, mild-moderate Trop 70s -> 80, denies any chest pain or SOB, likely inc due to demand ischemia Trend to peak, continue monitoring on telemetry Last echo with LVEF 60% and mild-moderate aortic stenosis in Nov 2021 but reported to be as low as 40%; pt reported interval worsening of venous stasis changes Ordered echocardiogram but not urgent based on lack of shortness of breath, no supplemental O2 requirement, and lack of chest pain; reasonable to obtain while inpatient due to possible worsening of LVEF and progression of aortic stenosis consider acute weakness and worsening venous stasis changes #Subtherapeutic INR #Atrial fibrillation, on warfarin Was 1.3 today, reported therapeutic range is 2-3 Will give additional warfarin 5mg today, no acute concerns for bleeding PT/INR in AM Otherwise continue warfarin at current home regimen Continue metoprolol succinate 100mg daily #Obstructive sleep apnea Has CPAP at home but reportedly non-compliant Ordered CPAP while inpatient Chronic stable: hypothyroidism- continue levothyroxine HLD- continue rosuvastatin VTE ppx: continue home warfarin Dispo: med/surg tele Admission and Anticipated Discharge Date Admission Date: November 26, 2024 Supervising Physician Co-Signing Physician Notes ATTESTATION I also saw the patient and confirmed peters portions of the history and exam. I agree with the impression and plan in the resident documentation, and as summarized below. Patient notes that he is feeling better this morning - legs hurt less. Never really felt sick in terns of chills/fever/etc. EXAM A/O. NAD. +S1/S2, irregularly irregular, no m/r/g Lungs CTA Abd soft, NT/ND Legs with bilateral venous stasis changes and thick hyperkeratosis present bilaterally. Redness of visualized portions of leg, warmth to touch. B/L LE recently wrapped, not removed for this exam. DATA Labs WBC down to 15.7 INR = 1.3 Cr improved to 2.14 CRP 22.82 Total CK 1012 down to [address] non acute CT head and neck negative CT Abd/Pelvis non acute Micro Blood cultures collected 11/26/2024 pending IMPRESSION & PLAN Fall Rhabdomyolysis DALE Sepsis Cellulitis LE Venous Stasis, chronic with dermatitis Subtherapeutic INR Atrial fib Continue cefepime and vancomycin pending cultures PT/OT Wound care Warfarin 10 mg tonight, daily INR with adjustments to maintain INR 2-3 Additional per resident documentation Subjective He continues to get wound care, swelling and redness has been better than before. Left leg is more swollen than right with multiple wounds and foul smell from the wound. Denies dizziness,chest pain, sob, fever, chills, palpitations. Review of Systems Review of Systems: per HPI Physical Exam Physical Exam: Gen: A&Ox3, appearing in no acute distress, satting mid-upper 90s on room air HEENT: EOM intact, anicteric sclerae, PERRL b/l CV: borderline tachy rate, irregular rhythm, +s1/s2, distant heart sounds thus no obvious m/r/g, 2+ radial pulses b/l; unable to palpate LE pulses due to edema Resp: air movement limited by body habitus, otherwise clear to auscultation b/l, no wheeze/rales/rhonchi GI/Abd: normo-hyperactive BS, no distension other than obesity, no guarding, no tenderness to palpation of entire abdomen MSK: LLE with raised dry, hardened/thickened callous from mid-wood down to foot, otherwise b/l LE with base of erythema and nonpitting edema, tender to palpation in most areas of erythema and swelling up to upper thighs, several areas of gauze overlying more raw skin but no active bleeding or oozing seen; malodorous - 5/5 strength in b/l UE, 4/5 strength i n b/l LE Psych: fair eye contact, mood-affect congruence Results & Data Results & Data Vital Signs (Past 12 Hours) Vital Signs Temp Pulse Pulse Resp BP BP Pulse Ox 11/27/24 07:50 36.6 C 83 18 134/79 97 11/27/24 06:45 85 11/27/24 03:16 36.9 C 111 H 18 105/68 92 11/27/24 02:20 11/27/24 00:31 36.5 C 106 H 16 133/83 98 11/27/24 00:25 91 H O2 Del Method 11/27/24 07:50 Room Air 11/27/24 06:45 11/27/24 03:16 Room Air 11/27/24 02:20 Room Air 11/27/24 00:31 Room Air 11/27/24 00:25 Resident Activity Tracking Resident Involvement: Resident Care Provided Care Provided: Adult Hospital Medicine (1) Fall Encounter type: initial encounter Qualified Code(s): W19.XXXA - Unspecified fall, initial encounter
--- NOTE | 2024-11-27 13:46 | XCELERA ---
[id number]
[2024-11-27] MEDS ORDERED: VANCOMYCIN HCL 2,000 MG in SODIUM CHLORIDE 0.9% 500 ML IV SCH (16:00)
[2024-11-27] MEDS: WARFARIN SOD 10 MG TAB PO ONE (16:44)
[2024-11-28] MEDS: MELATONIN 3 MG TAB PO PRN (01:09)
[2024-11-28 04:57] LABS: Hematocrit (blood only) 42.6 % (42.0-52.0); Hemoglobin 14.0 g/dl (14.0-18.0); Immature Granulocytes # (auto) 0.08 K/uL (0.01-0.20); Immature Granulocytes % (auto) 0.7 %; Mean Corpuscular Hemoglobin 31.5 pg (25.0-34.0); Mean Corpuscular Volume 95.9 fL (80.0-100.0); Platelet Count 184 K/uL (130-400); RDW Standard Deviation 54.1 fL (36.4-46.3); Red Blood Count 4.44 M/uL (4.70-6.10); White Blood Count 11.98 K/ul (4.8-10.8)
[2024-11-28 05:14] LABS: Alanine Aminotransferase 23.0 U/L (7-52); Albumin Globulin Ratio 0.7 (0.9-2); Alkaline Phosphatase 73.0 U/L (34-104); Anion Gap 6.0 (3-11); Bilirubin,Total 0.4 mg/dl (0.2-1.0); Blood Urea Nitrogen 35.0 mg/dl (6-23); Calcium 8.2 mg/dl (8.6-10.3); Carbon Dioxide 20.0 mmol/L (21-32); Chloride 106.0 mmol/L (98-107); Creatine Kinase 136.0 U/L (30-223); Creatinine Clr Calc Pharmacy 45.3 ml/min; Globulin 3.7 gm/dl (2.5-4.0); Potassium 4.0 mmol/L (3.5-5.1); Sodium 132.0 mmol/L (136-145); Total Protein 6.2 gm/dl (6.0-8.3)
[2024-11-28 05:25] LABS: INR 1.5 (0.9-1.1); Prothrombin Time 15.4 Seconds (9.0-12.0)
[2024-11-28] MEDS: MICONAZOLE NITRATE POWDER 85 GM EXT PRN (06:30)
--- NOTE | 2024-11-28 10:20 | Hospitalist Progress Note ---
Date of Service November 28, 2024 Assessment & Plan (1) Fall: (2) Acute kidney injury superimposed on CKD: (3) Venous stasis dermatitis of both lower extremities: Plan Santi is a 78yo male with medical history of b/l lower extremity chronic venous stasis dermatitis, prior b/l LE cellulitis treated with keflex within the last 1-2mos, atrial fibrillation, CKD III, and hypothyroidism, brought to ER by EMS due to his son's concern about an unwitnessed fall, being admitted for weakness w/ unwitnessed fall and sepsis with concern for lower extremity source, failed outpatient treatment of cellulitis within last 1-2mos. Requires admission for IV antibiotics and PT/OT, case management consulted to discuss escalation of healthcare monitoring. #Fall, unwitnessed #Weakness Based on history provided, likely due to generalized and particularly lower extremity weakness, likely a component of ambulatory dysfunction related to lower extremity stiffness due to worsening of venous stasis changes and suspected cellulitis; echo with noted mild-moderate aortic stenosis and prior documentation of LVEF as low as 40%, raises the suspicion of a syncopal event possibly related to progression of and/or cardiomyopathy CT head with no acute or chronic intracranial pathology - see plan below for treatment of lower extremities - ordered TTE to evaluate for progression of prior known aortic stenosis and cardiomyopathy which is normal. - PT/OT ordered, - case mgmt has a bed hold for him. plan to talk about it to daughter today. #Sepsis #Chronic venous stasis changes w/ dermatitis #Cellulitis, lower extremity, suspected WBCs 15, elevated procal, tachycardic Started empirically on vancomycin and cefepime due to prior wound cx growing MDR S. aureus and Pseudomonas - continue above abx, pending blood cultures with dosing based on eGFR, currently 27; new wound cultures ordered: cefepine- 2000mg q24h; vancomycin 15- 20mg/kg body weight (~2,500mg) q24-48 Adjust abx based on sensitivities - Continue wound care consult. - CBC AM #Rhabdomyolysis #DALE on CKD III #Hematuria Baseline creatinine 1.7-1.9 in Mar 2024; UA with 3+ blood, RBCs - creatinine elevation to 1012 likely due to combination of dehydration and rhabdomyolysis from fall and being stuck on floor for 6-7hrs Given NS at 250cc/hr Continue plasmalyte at 80cc/hr - BMP AM #Elevated troponin #Cardiomyopathy, known #Aortic stenosis, mild-moderate Trop 70s -> 80, denies any chest pain or SOB, likely inc due to demand ischemia Trend to peak, continue monitoring on telemetry Last echo with LVEF 60% and mild-moderate aortic stenosis in Nov 2021 but reported to be as low as 40%; pt reported interval worsening of venous stasis changes Ordered echocardiogram but not urgent based on lack of shortness of breath, no supplemental O2 requirement, and lack of chest pain; reasonable to obtain while inpatient due to possible worsening of LVEF and progression of aortic stenosis consider acute weakness and worsening venous stasis changes #Subtherapeutic INR #Atrial fibrillation, on warfarin Was 1.5 today, reported therapeutic range is 2-3 Will give additional warfarin 5mg today, total of 10mg, no acute concerns for bleeding PT/INR in AM Otherwise continue warfarin at current home regimen Continue metoprolol succinate 100mg daily #Obstructive sleep apnea Has CPAP at home but reportedly non-compliant Ordered CPAP while inpatient Chronic stable: hypothyroidism- continue levothyroxine HLD- continue rosuvastatin VTE ppx: continue home warfarin Dispo: med/surg tele Admission and Anticipated Discharge Date Admission Date: November 26, 2024 Supervising Physician Co-Signing Physician Notes I personally examined the patient and verified peters points of history and exam, discussed case, and agree with decision making and plan documented by Dr. Cardoso. Discussed with patient concerns about his ability to care for himself at home independently, his is in [place] caring for their son, patient is agreeable to consideration of SNF for rehab. Patient will require continued wound care for bilateral lower extremities. Patient remains on IV antibiotics pending cultures. Monitoring INR and adjusting warfarin to achieve goal of INR 2-3. Subjective He continues to get wound care, swelling and redness has been better than b efore. Left leg is more swollen than right with multiple wounds and foul smell from the wound. Denies dizziness,chest pain, sob, fever, chills, palpitations. Review of Systems Review of Systems: per HPI Physical Exam Physical Exam: Gen: A&Ox3, appearing in no acute distress, satting mid-upper 90s on room air HEENT: EOM intact, anicteric sclerae, PERRL b/l CV: borderline tachy rate, irregular rhythm, +s1/s2, distant heart sounds thus no obvious m/r/g, 2+ radial pulses b/l; unable to palpate LE pulses due to edema Resp: air movement limited by body habitus, otherwise clear to auscultation b/l, no wheeze/rales/rhonchi GI/Abd: normo-hyperactive BS, no distension other than obesity, no guarding, no tenderness to palpation of entire abdomen MSK: LLE with raised dry, hardened/thickened callous from mid-wood down to foot, otherwise b/l LE with base of erythema and nonpitting edema, tender to palpation in most areas of erythema and swelling up to upper thighs, several areas of gauze overlying more raw skin but no active bleeding or oozing seen; malodorous - 5/5 strength in b/l UE, 4/5 strength i n b/l LE Psych: fair eye contact, mood-affect congruence Results & Data Results & Data Vital Signs (Past 12 Hours) Vital Signs Temp Pulse Pulse Resp BP Pulse Ox O2 Del Method 11/28/24 08:00 Room Air 11/28/24 07:20 36.5 C 84 19 122/69 94 Room Air 11/28/24 06:45 92 H 11/28/24 03:00 36.8 C 65 20 108/64 94 Room Air 11/27/24 22:50 36.7 C 67 18 116/74 95 Room Air 11/27/24 22:33 Room Air Resident Activity Tracking Resident Involvement: Resident Care Provided Care Provided: Adult Hospital Medicine (1) Fall Encounter type: initial encounter Qualified Code(s): W19.XXXA - Unspecified fall, initial encounter
[2024-11-28] MEDS: AMMONIUM LACTATE 12% LOTION 225 GM BTL EXT SCH (13:34)
[2024-11-28] MEDS ORDERED: AMMONIUM LACTATE 12% LOTION 225 GM BTL EXT PRN (15:46)
[2024-11-28] MEDS: WARFARIN SOD 5 MG TAB PO ONE (16:25)
[2024-11-28] MEDS: WARFARIN SOD 5 MG TAB PO SCH (16:25)
[2024-11-28] MEDS: CEFEPIME 2000MG 2,000 MG/20 ML SYR IV SCH (16:25)
[2024-11-28] MEDS ORDERED: Nursing to Pharmacy Communication SCH (16:30)
[2024-11-29 06:19] LABS: Hematocrit (blood only) 42.2 % (42.0-52.0); Hemoglobin 14.2 g/dl (14.0-18.0); Immature Granulocytes # (auto) 0.14 K/uL (0.01-0.20); Immature Granulocytes % (auto) 1.2 %; Mean Corpuscular Hemoglobin 32.0 pg (25.0-34.0); Mean Corpuscular Volume 95.0 fL (80.0-100.0); Platelet Count 188 K/uL (130-400); RDW Standard Deviation 52.8 fL (36.4-46.3); Red Blood Count 4.44 M/uL (4.70-6.10); White Blood Count 11.49 K/ul (4.8-10.8)
[2024-11-29 06:41] LABS: Alanine Aminotransferase 29.0 U/L (7-52); Albumin Globulin Ratio 0.6 (0.9-2); Alkaline Phosphatase 74.0 U/L (34-104); Anion Gap 7.0 (3-11); Bilirubin,Total 0.4 mg/dl (0.2-1.0); Blood Urea Nitrogen 29.0 mg/dl (6-23); Calcium 8.3 mg/dl (8.6-10.3); Carbon Dioxide 22.0 mmol/L (21-32); Chloride 107.0 mmol/L (98-107); Creatinine Clr Calc Pharmacy 49.3 ml/min; Globulin 4.0 gm/dl (2.5-4.0); Potassium 3.9 mmol/L (3.5-5.1); Sodium 136.0 mmol/L (136-145); Total Protein 6.4 gm/dl (6.0-8.3)
[2024-11-29 06:52] LABS: INR 1.8 (0.9-1.1); Prothrombin Time 19.0 Seconds (9.0-12.0)
--- NOTE | 2024-11-29 09:20 | Pharmacy Report ---
Pharmacy PK ABX Note - Date of Service November 29, 2024 - Assessment and Plan Assessment 11/29 Blood cultures negative at 48 hours. Continuing broad-spectrum IV antibiotics d/t severity of infection. Random level this AM 13.2 mcg/mL- suggests therapeutic dosing, will continue current dose 11/27 78 year old M started on vancomycin and cefepime for b/l lower extremity cellulitis. Previously on course of keflex [employer]. PMHx significant for CKD III, chronic afib on warfarin, cardiomyopathy. Presenting after unwitnessed fall, weakness. Per previous records patient has been on numerous courses of abx for LE cellulitis in the past. Hx of PA, acinetobacter, MSSA on previous foot/leg cu ltures. Plan Vancomycin * Loading dose: 2500 mg IV x 1 * Maintenance dose: 1250 mg IV every 24 hours * Regimen is predicted to achieve target AUC/GABINO of 400-600 mg/L.hr * Will plan to order vancomycin level in next 3 days to ensure stable, or sooner with renal function changes Pharmacy will continue to follow and will adjust dose/frequency as necessary. Thank you. Pharmacy has transitioned to AUC monitoring for vancomycin. AUC/GABINO is the preferred PK/PD target and is associated with decreased risk of nephrotoxicity compared to traditional trough targets.
[2024-11-29] MEDS: VANCOMYCIN LEVEL ONE (10:10)
--- NOTE | 2024-11-29 12:54 | Hospitalist Progress Note ---
Date of Service November 29, 2024 Assessment & Plan (1) Fall: (2) Acute kidney injury superimposed on CKD: (3) Venous stasis dermatitis of both lower extremities: Plan Santi is a 78yo male with medical history of b/l lower extremity chronic venous stasis dermatitis, prior b/l LE cellulitis treated with keflex within the last 1-2mos, atrial fibrillation, CKD III, and hypothyroidism, brought to ER by EMS due to his son's concern about an unwitnessed fall, being admitted for weakness w/ unwitnessed fall and sepsis with concern for lower extremity source, failed outpatient treatment of cellulitis within last 1-2mos. Requires admission for IV antibiotics and PT/OT, case management consulted to discuss escalation of healthcare monitoring. #Fall, unwitnessed #Weakness -B-a-s-e-d- -o-n- -u-q-f-t-o-r-y- -n-n-q-v-i-d-e-d-,- -c-z-m-e-l-y- -d-u-e- -t-o- -i-x-v-e-f-d-l-i-z-e-d- -a-n-d- -u-l-r-i-v-m-e-g-l-r-l-y- -l-o-w-e-r- -u-o-d-r--e-m-i-t-y- -n-t-i-k-n-e-s-s-,- -d-s-j-e-l-y- -a- -x-k-b-b-h-x-e-n-t- -o-f- -m-j-o-u-c-e-t-o-r-y- -y-q-q-q-z-j-c-t-i-o-n- -w-b-m-a-t-e-d- -t-o- -l-o-w-e-r- -g-x-v-i-r-p-i-t-y- -h-p-q-c-p-l-e-s-s- -d-u-e- -t-o- -a-a-e-v-t-l-i-n-g- -o-f- -i-w-i-o-u-s- -w-j-c-s-i-s- -i-n-w-n-g-e-s- -a-n-d- -a-z-g-f-i-e-t-e-d- -j-s-u-s-q-c-i-t-i-s-;- -e-c-h-o- -w-i-t-h- -n-o-t-e-d- -c-x-q-d----z-f-t-e-r-a-t-e- -c-a-m-t--i-c- -z-a-x-n-o-s-i-s- -a-n-d- -p-r-i-o-r- -d-v-y-u-j-l-g-y-c-t-i-o-n- -o-f- -L-V-E-F- -a-s- -l-o-w- -a-s- -4-0-%-,- -n-t-a-s-e-s- -t-h-e- -u-r-k-d-r-c-i-o-n- -o-f- -a- -y-m-s-c-o-p-a-l- -e-v-e-n-t- -o-w-t-s-i-b-l-y- -k-v-i-a-t-e-d- -t-o- -j-n-s-g-u-z-s-s-i-o-n- -o-f- -A-S- -a-n-d-/-o-r- -z-f-d-f-s-j-p-v-v-p-a-t-h-y- -C-T- -h-e-a-d- -w-i-t-h- -n-o- -a-c-u-t-e- -o-r- -l-p-e-o-n-i-c- -d-m-l-q-u-m-r--a-n-i-a-l- -w-s-v-x-m-w-o-g-y- - -s-e-e- -p-l-a-n- -b-e-l-o-w- -f-o-r- -v-n-p-q-u-i-e-n-t- -o-f- -l-o-w-e-r- -o-t-e-k-n-c-i-t-i-e-s- - -p-t-k-e-r-e-d- TTE -t-o- -f-k-x-l-u-a-t-e- -f-o-r- -l-m-s-s-z-m-s-s-i-o-n- -o-f- -p-r-i-o-r- -k-n-o-w-n- -f-n-a-t-i-c- -x-r-f-n-o-s-i-s- -a-n-d- -a-e-j-h-b-l-r-i-h-p-a-t-h-y- -w-h-i-c-h- -i-s- normal. - Continue PT/OT - Patient agreeable to getting discharged to [facility], case mgmt has a bed hold for him. #Sepsis #Chronic venous stasis changes w/ dermatitis #Cellulitis, lower extremity, suspected WBCs 15->11.49-,- -a-b-v-v-a-t-e-d- -k-d-r-c-a-l-,- -w-a-a-i-v-o-a-r-d-i-c- -M-n-o-r-t-e-d- -t-q-r-g-z-t-c-a-l-l-y- on vancomycin and cefepime due to prior wound cx growing MDR S. aureus and Pseudomonas - continue above abx, pending blood cultures with dosing based on eGFR, currently 27; new wound cultures ordered: cefepine- 2000mg q24h; vancomycin 15- 20mg/kg body weight (~2,500mg) q24-48 Adjust abx based on sensitivities - Continue wound care consult. - CBC AM #Rhabdomyolysis #DALE on CKD III #Hematuria Baseline creatinine 1.7-1.9 in Mar 2024; UA with 3+ blood, RBCs --- -z-o-q-s-x-r-n-i-n-e- -y-m-t-w-i-o-i-o-n- -t-o- -1-0-1-2- -g-k-c-e-l-y- -d-u-e- -t-o- -f-t-t-i-g-a-a-t-i-o-n- -o-f- -g-o-h-c-u-q-a-t-i-o-n- -a-n-d- -f-w-f-g-j-q-p-b-w-l-y-s-i-s- -f-r-o-m- -f-a-l-l- -a-n-d- -b-e-i-n-g- -s- -t-u-c-k- -o-n- -f-l-o-o-r- -f-o-r- -6----7-h-r-s- -G-i-v-e-n- -N-S- -a-t- -2-5-0-c-c-/-h-r- -H-l-y-t-i-n-u-e- -l-g-u-l-i-s-l-y-t-e- -a-t- -8-0-c-c-/-h-r- - BMP AM #Elevated troponin #Cardiomyopathy, known #Aortic stenosis, mild-moderate Trop 70s -> 20.8, denies any chest pain or SOB, likely inc due to demand ischemia T-r-e-n-d- -t-o- -p-e-a-k-, continue monitoring on telemetry -L-a-s-t- -e-c-h-o- -w-i-t-h- -L-V-E-F- -6-0-%- -a-n-d- -m-i-l-d---- -k-n-e-e-r-a-t-e- -q-x-r-t-i-c- -t-h-u-n-o-s-i-s- -i-n- -S-e-p-t- -2-0-2-2- -b-u-t- -c-d-o-o-r-t-e-d- -t-o- -b-e- -a-s- -l-o-w- -a-s- -4-0-%-;- -p-t- -c-m-q-o-r-t-e-d- -v-x-x-e-r-v-a-l- -g-c-i-c-t-d-i-n-g- -o-f- -o-z-e-o-u-s- -p-d-p-s-i-s- -r-r-d-n-g-e-s- -S-p-c-e-r-e-d- echocardiogram- Moderate aortic valve sclerosis; reasonable to obtain while inpatient due to possible worsening of LVEF and progression of aortic stenosis consider acute weakness and worsening venous stasis changes #Subtherapeutic INR #Atrial fibrillation, on warfarin Was 1.8 today, reported therapeutic range is 2-3 Will give additional warfarin 5mg today, total of 12.5mg, no acute concerns for bleeding PT/INR in AM Otherwise continue warfarin at current home regimen Continue metoprolol succinate 100mg daily #Obstructive sleep apnea Has CPAP at home but reportedly non-compliant Ordered CPAP while inpatient Chronic stable: hypothyroidism- continue levothyroxine HLD- continue rosuvastatin VTE ppx: continue home warfarin Dispo: med/surg tele Admission and Anticipated Discharge Date Admission Date: November 26, 2024 Supervising Physician Co-Signing Physician Notes I personally examined the patient and verified peters points of history and exam, discussed case, and agree with decision making and plan documented by Dr. Cardoso. Patient remains on IV vancomycin and cefepime. Blood cultures for 24 hours negative. Leukocytosis improving. Cr 1.95. Optimizing INR to goal. Continued erythema and sloughing of bilateral lower extremities suggestive of superimposed cellulitis on chronic venous stasis dermatitis. Patient will need continued wound care for bilateral lower extremities. Plan is for patient to be discharged to [facility] Sunday. Subjective He continues to get wound care, swelling and redness has been better than before. Right knee pain starting with infection. Left leg is more swollen than right with multiple wounds and foul smell from the wound. Denies dizziness,chest pain, sob, fever, chills, palpitations. Review of Systems Review of Systems: per HPI Physical Exam Physical Exam: Gen: A&Ox3, appearing in no acute distress, satting mid-upper 90s on room air HEENT: EOM intact, anicteric sclerae, PERRL b/l CV: normal rate and rhythm, +s1/s2, distant heart sounds thus no obvious m/r/g, 2+ radial pulses b/l; unable to palpate LE pulses due to edema Resp: air movement limited by body habitus, otherwise clear to auscultation b/l, no wheeze/rales/rhonchi GI/Abd: normo-hyperactive BS, no distension other than obesity, no guarding, no tenderness to palpation of entire abdomen MSK: LLE with raised dry, hardened/thickened callous from mid-wood down to foot, otherwise b/l LE with base of erythema and nonpitting edema, tender to palpation in most areas of erythema and swelling up to upper thighs, several areas of gauze overlying more raw skin but no active bleeding or oozing seen; malodorous - 5/5 strength in b/l UE, 4/5 strength i n b/l LE Psych: fair eye contact, mood-affect congruence Results & Data Results & Data Vital Signs (Past 12 Hours) Vital Signs Temp Pulse Pulse Resp BP Pulse Ox O2 Del Method 11/29/24 11:14 36.6 C 82 16 140/84 96 Room Air 11/29/24 08:16 36.7 C 86 20 156/75 H 95 Room Air 11/29/24 08:06 Room Air 11/29/24 07:18 92 H 11/29/24 03:05 37.0 C 84 19 131/86 96 Room Air Resident Activity Tracking Resident Involvement: Resident Care Provided Care Provided: Adult Hospital Medicine (1) Fall Encounter type: initial encounter Qualified Code(s): W19.XXXA - Unspecified fall, initial encounter
[2024-11-29] MEDS: WARFARIN SOD 7.5 MG TAB PO SCH (16:02)
[2024-11-29] MEDS: WARFARIN SOD 5 MG TAB PO ONE (16:04)
[2024-11-30] MEDS: diphenhydrAMINE Capsule 25 MG CAP PO ONE (03:40)
[2024-11-30 06:40] LABS: Hematocrit (blood only) 44.2 % (42.0-52.0); Hemoglobin 13.9 g/dl (14.0-18.0); Immature Granulocytes # (auto) 0.34 K/uL (0.01-0.20); Immature Granulocytes % (auto) 2.7 %; Mean Corpuscular Hemoglobin 30.6 pg (25.0-34.0); Mean Corpuscular Volume 97.4 fL (80.0-100.0); Platelet Count 192 K/uL (130-400); RDW Standard Deviation 54.5 fL (36.4-46.3); Red Blood Count 4.54 M/uL (4.70-6.10); White Blood Count 12.83 K/ul (4.8-10.8)
[2024-11-30 07:08] LABS: INR 2.3 (0.9-1.1); Prothrombin Time 23.3 Seconds (9.0-12.0)
--- NOTE | 2024-11-30 11:34 | Hospitalist Progress Note ---
Date of Service November 30, 2024 Assessment & Plan (1) Fall: (2) Acute kidney injury superimposed on CKD: (3) Venous stasis dermatitis of both lower extremities: (4) Rash: Plan Santi is a 78yo male with medical history of b/l lower extremity chronic venous stasis dermatitis, prior b/l LE cellulitis treated with failed outpatient treatment with keflex within the last 1-2mos, atrial fibrillation, CKD III, and hypothyroidism, brought to ER by EMS due to his son's concern about an unwitnessed fall. #Fall, unwitnessed #Weakness - Unwitnessed fall possible stiffness from chronic venous stasis with cellulitis. - Continue PT/OT - Patient agreeable to getting discharged to [facility]/[place] care, case mgmt has a bed hold for him. - Will consider discharge him tomorrow with IV antibiotics. #Sepsis #Chronic venous stasis changes w/ dermatitis #Cellulitis, lower extremity, suspected -WBCs 15-> 12.83 CRP 8. - Continue vancomycin and cefepime due to prior wound cx growing MDR S. aureus and Pseudomonas - continue above abx, pending blood cultures with dosing based on eGFR, currently 36.12; new wound cefepine- 2000mg q24h; vancomycin 15-20mg/kg body weight (~2,500mg) q24-48 Adjust abx based on sensitivities - Continue wound care consult. - CBC AM #Rhabdomyolysis #DALE on CKD III #Hematuria Baseline creatinine 1.7-1.9 in Mar 2024; UA with 3+ blood, RBCs - creatinine elevation to 1012 likely due to combination of dehydration and rhabdomyolysis from fall and being stuck on floor for 6-7hrs Given NS at 250cc/hr Continue plasmalyte at 80cc/hr - BMP AM #Elevated troponin #Cardiomyopathy, known #Aortic stenosis, mild-moderate Trop 70s -> 20.8, denies any chest pain or SOB, likely inc due to demand ischemia Trend to peak, continue monitoring on telemetry Last echo with LVEF 60% and mild-moderate aortic stenosis in Nov 2021 but reported to be as low as 40%; pt reported interval worsening of venous stasis changes Ordered echocardiogram- Moderate aortic valve sclerosis on 11/27. #Subtherapeutic INR #Atrial fibrillation, on warfarin Was 2.3 today, reported therapeutic range is 2-3 Will continue home dose of 5mg today, no acute concerns for bleeding PT/INR in AM Otherwise continue warfarin at current home regimen Continue metoprolol succinate 100mg daily #Obstructive sleep apnea Has CPAP at home but reportedly non-compliant Ordered CPAP while inpatient Chronic stable: hypothyroidism- continue levothyroxine HLD- continue rosuvastatin VTE ppx: continue home warfarin Dispo: med/surg tele Admission and Anticipated Discharge Date Admission Date: November 26, 2024 Supervising Physician Co-Signing Physician Notes I personally examined the patient and verified peters points of history and exam, discussed case, and agree with decision making and plan documented by Dr. Cardoso. Patient remains on IV vancomycin and cefepime, Day 5, multiple antibiotic allergies, recommend discussion with clinical pharmacist. Cr 1.87. INR at goal. Patient will need continued wound care for bilateral lower extremities. Hopeful discharge to [facility] or [facility] for rehab. Subjective Reports rash presentation at night, and resolved today morning, non itchy, painful, no mucosal involvement. He continues to get wound care, swelling and redness has been better than before. Right knee pain starting with infection. Left leg is more swollen than right with multiple wounds and foul smell from the wound. Denies dizziness,chest pain, sob, fever, chills, palpitations. Review of Systems Review of Systems: per HPI Physical Exam Physical Exam: Gen: A&Ox3, appearing in no acute distress, satting mid-upper 90s on room air HEENT: EOM intact, anicteric sclerae, PERRL b/l CV: normal rate and rhythm, +s1/s2, distant heart sounds thus no obvious m/r/g, 2+ radial pulses b/l; unable to palpate LE pulses due to edema Resp: air movement limited by body habitus, otherwise clear to auscultation b/l, no wheeze/rales/rhonchi GI/Abd: normo-hyperactive BS, no distension other than obesity, no guarding, no tenderness to palpation of entire abdomen MSK: LLE with raised dry, hardened/thickened callous from mid-wood down to foot, otherwise b/l LE with base of erythema and nonpitting edema, tender to palpation in most areas of erythema and swelling up to upper thighs, several areas of gauze overlying more raw skin but no active bleeding or oozing seen; malodorous - 5/5 strength in b/l UE, 4/5 strength i n b/l LE Skin: Rash resolved. Psych: fair eye contact, mood-affect congruence Results & Data Results & Data Vital Signs (Past 12 Hours) Vital Signs Temp Pulse Pulse Resp BP Pulse Ox O2 Del Method 11/30/24 08:07 Nasal Cannula 11/30/24 08:00 36.6 C 89 20 162/80 H 96 Nasal Cannula 11/30/24 06:57 78 11/30/24 02:41 36.7 C 81 16 126/78 96 Nasal Cannula O2 Flow Rate 11/30/24 08:07 2 11/30/24 08:00 2 11/30/24 06:57 11/30/24 02:41 2 Resident Activity Tracking Resident Involvement: Resident Care Provided Care Provided: Adult Hospital Medicine (1) Fall Encounter type: initial encounter Qualified Code(s): W19.XXXA - Unspecified fall, initial encounter
[2024-11-30 11:36] LABS: Alanine Aminotransferase 27.0 U/L (7-52); Albumin Globulin Ratio 0.7 (0.9-2); Alkaline Phosphatase 86.0 U/L (34-104); Anion Gap 14.0 (3-11); Blood Urea Nitrogen 30.0 mg/dl (6-23); Calcium 8.3 mg/dl (8.6-10.3); Carbon Dioxide 19.0 mmol/L (21-32); Chloride 105.0 mmol/L (98-107); Creatinine Clr Calc Pharmacy 51.7 ml/min; Globulin 3.8 gm/dl (2.5-4.0); Potassium 4.3 mmol/L (3.5-5.1); Sodium 138.0 mmol/L (136-145)
[2024-11-30 11:37] LABS: Bilirubin,Total 0.4 mg/dl (0.2-1.0); Total Protein 6.4 gm/dl (6.0-8.3)
[2024-12-01 06:17] LABS: Hematocrit (blood only) 45.5 % (42.0-52.0); Hemoglobin 14.3 g/dl (14.0-18.0); Immature Granulocytes # (auto) 0.62 K/uL (0.01-0.20); Immature Granulocytes % (auto) 4.5 %; Mean Corpuscular Hemoglobin 30.6 pg (25.0-34.0); Mean Corpuscular Volume 97.2 fL (80.0-100.0); Platelet Count 216 K/uL (130-400); RDW Standard Deviation 54.4 fL (36.4-46.3); Red Blood Count 4.68 M/uL (4.70-6.10); White Blood Count 13.93 K/ul (4.8-10.8)
[2024-12-01 06:36] LABS: Alanine Aminotransferase 24.0 U/L (7-52); Albumin Globulin Ratio 0.6 (0.9-2); Alkaline Phosphatase 81.0 U/L (34-104); Anion Gap 5.0 (3-11); Bilirubin,Total 0.4 mg/dl (0.2-1.0); Blood Urea Nitrogen 25.0 mg/dl (6-23); Calcium 8.3 mg/dl (8.6-10.3); Carbon Dioxide 25.0 mmol/L (21-32); Chloride 105.0 mmol/L (98-107); Creatinine Clr Calc Pharmacy 51.4 ml/min; Globulin 4.2 gm/dl (2.5-4.0); Potassium 3.9 mmol/L (3.5-5.1); Sodium 135.0 mmol/L (136-145); Total Protein 6.8 gm/dl (6.0-8.3)
[2024-12-01 06:42] LABS: INR 3.4 (0.9-1.1); Prothrombin Time 32.8 Seconds (9.0-12.0)
[2024-12-01 08:19] LABS: Appearance Urine Slightly Cloudy (Clear); Glucose Urine UA Negative (Negative)
[2024-12-01 08:26] VITALS: RESP 20
[2024-12-01 08:59] LABS: Epithelial Cell Urine 0-2 /hpf (0-2)
--- NOTE | 2024-12-01 12:39 | Hospitalist Progress Note ---
Date of Service December 01, 2024 Assessment & Plan (1) Fall: (2) Acute kidney injury superimposed on CKD: (3) Venous stasis dermatitis of both lower extremities: (4) Rash: Plan Santi is a 78yo male with medical history of b/l lower extremity chronic venous stasis dermatitis, prior b/l LE cellulitis treated with failed outpatient treatment with keflex within the last 1-2mos, atrial fibrillation, CKD III, and hypothyroidism, brought to ER by EMS due to his son's concern about an unwitnessed fall. #Fall, unwitnessed #Weakness - Unwitnessed fall possible stiffness from chronic venous stasis with cellulitis. - Continue PT/OT - [facility], case mgmt has a bed hold for him. - Will consider discharge him tomorrow to the center care. #Sepsis #Chronic venous stasis changes w/ dermatitis #Cellulitis, lower extremity, suspected -WBCs 15-> 12.83 CRP 8. - Continue vancomycin and cefepime due to prior wound cx growing MDR S. aureus and Pseudomonas - continue above abx, pending blood cultures with dosing based on eGFR, currently 36.12; new wound cefepine- 2000mg q24h; vancomycin 15-20mg/kg body weight (~2,500mg) q24-48 Adjust abx based on sensitivities - Continue wound care consult. - CBC AM #Rhabdomyolysis #DALE on CKD III #Hematuria Baseline creatinine 1.7-1.9 in Mar 2024; UA with 3+ blood, RBCs - creatinine elevation to 1012 likely due to combination of dehydration and rhabdomyolysis from fall and being stuck on floor for 6-7hrs Given NS at 250cc/hr Continue plasmalyte at 80cc/hr - BMP AM #Elevated troponin #Cardiomyopathy, known #Aortic stenosis, mild-moderate Trop 70s -> 20.8, denies any chest pain or SOB, likely inc due to demand ischemia Trend to peak, continue monitoring on telemetry Last echo with LVEF 60% and mild-moderate aortic stenosis in Nov 2021 but reported to be as low as 40%; pt reported interval worsening of venous stasis changes Ordered echocardiogram- Moderate aortic valve sclerosis on 11/27. #Subtherapeutic INR #Atrial fibrillation, on warfarin Was 2.3 today, reported therapeutic range is 2-3 Will continue home dose of 5mg today, no acute concerns for bleeding PT/INR in AM Otherwise continue warfarin at current home regimen Continue metoprolol succinate 100mg daily #Obstructive sleep apnea Has CPAP at home but reportedly non-compliant Ordered CPAP while inpatient Chronic stable: hypothyroidism- continue levothyroxine HLD- continue rosuvastatin VTE ppx: continue home warfarin Dispo: med/surg tele Admission and Anticipated Discharge Date Admission Date: November 26, 2024 Supervising Physician Co-Signing Physician Notes I personally examined the patient and verified all peters points of history and exam, discussed case, and agree with decision making with Dr Cardoso Feeling okay. No new complaints. Awaiting rehab. Vitals noted, in general he is awake and alert pleasant no distress. HEENT normocephalic atraumatic mucous membranes moist. Bilateral lower extremities dressed with a little bit of dull erythema outside the dressing, but nothing appears to be tracking. Legs are not exquisitely tender. Lower extremity cellulitis (probably with sepsis present on admissionSIRS criteria being heart rate and white count)improving. Continue current antibiotics through tomorrow to complete 7 days of treatment. Continue local wo und care. WeaknessPT/OT eval and treat, for rehab tomorrow. Subjective He continues to get wound care, swelling and redness has been better than before. Right knee pain starting with infection. Left leg is more swollen than right with multiple wounds and foul smell from the wound. Denies dizziness,chest pain, sob, fever, chills, palpitations. Review of Systems Review of Systems: per HPI Physical Exam Physical Exam: Gen: A&Ox3, appearing in no acute distress, satting mid-upper 90s on room air HEENT: EOM intact, anicteric sclerae, PERRL b/l CV: normal rate and rhythm, +s1/s2, distant heart sounds thus no obvious m/r/g, 2+ radial pulses b/l; unable to palpate LE pulses due to edema Resp: air movement limited by body habitus, otherwise clear to auscultation b/l, no wheeze/rales/rhonchi GI/Abd: normo-hyperactive BS, no distension other than obesity, no guarding, no tenderness to palpation of entire abdomen MSK: LLE with raised dry, hardened/thickened callous from mid-wood down to foot, otherwise b/l LE with base of erythema and nonpitting edema, tender to palpation in most areas of erythema and swelling up to upper thighs, several areas of gauze overlying more raw skin but no active bleeding or oozing seen; malodorous - 5/5 strength in b/l UE, 4/5 strength i n b/l LE Skin: Rash resolved. Psych: fair eye contact, mood-affect congruence Results & Data Results & Data Vital Signs (Past 12 Hours) Vital Signs Temp Pulse Pulse Resp BP Pulse Ox O2 Del Method 12/01/24 11:25 36.8 C 94 H 20 157/91 H 95 Room Air 12/01/24 09:47 86 12/01/24 08:24 37.2 C 80 20 151/86 H 98 Nasal Cannula 12/01/24 07:30 Nasal Cannula 12/01/24 03:33 36.5 C 85 16 143/72 H 98 Room Air O2 Flow Rate 12/01/24 11:25 12/01/24 09:47 12/01/24 08:24 1.5 12/01/24 07:30 2 12/01/24 03:33 2.5 Resident Activity Tracking Resident Involvement: Resident Care Provided Care Provided: Adult Hospital Medicine (1) Fall Encounter type: initial encounter Qualified Code(s): W19.XXXA - Unspecified fall, initial encounter
--- NOTE | 2024-12-01 17:48 | Billing Data ---
Date of Service December 01, 2024 Coding Level of Care Code 36995 SUB INP/OBS CARE
[2024-12-02 07:13] LABS: Hematocrit (blood only) 43.9 % (42.0-52.0); Hemoglobin 14.3 g/dl (14.0-18.0); Mean Corpuscular Hemoglobin 31.0 pg (25.0-34.0); Mean Corpuscular Volume 95.0 fL (80.0-100.0); Platelet Count 221 K/uL (130-400); RDW Standard Deviation 51.8 fL (36.4-46.3); Red Blood Count 4.62 M/uL (4.70-6.10); White Blood Count 14.11 K/ul (4.8-10.8)
[2024-12-02 07:43] LABS: INR 3.2 (0.9-1.1); Prothrombin Time 31.3 Seconds (9.0-12.0)
[2024-12-02 07:57] LABS: Creatinine Clr Calc Pharmacy 57.8 ml/min
[2024-12-02 08:13] VITALS: TEMP 97.9
[2024-12-02 11:26] VITALS: O2SAT 100
[2024-12-02 14:45] VITALS: BP 144/85; PULSE 97
--- NOTE | 2024-12-02 16:24 | Billing Data ---
Date of Service December 02, 2024 Coding Level of Care Code 15653 IN/OBS DISCH 30 MIN/LESS
--- NOTE | 2024-12-02 17:34 | Discharge Summary ---
Date of Service December 02, 2024 Admission HPI Per Admitting Provider Santi is a 78yo male with medical history of b/l lower extremity chronic venous stasis dermatitis, prior b/l LE cellulitis treated with keflex within the last 1-2mos, chronic atrial fibrillation anticoagulated on warfarin, CKD III with baseline creatinine 1.7-1.9 in Mar 2024, cardiomyopathy, mild-moderate aortic stenosis in Nov 2021, hypothyroidism, and DERREK brought to ER by EMS due to his son's concern about an unwitnessed fall, being admitted for weakness w/ unwitnessed fall and concern for b/l lower extremity cellulitis. Legs: states his legs have had quite severe venous stasis changes and dermatitis for about a year now. Notes they have become more red with spread up to upper thighs, more swollen, and tighter within the last week or so. Denies any pain at baseline, only with pressure. Denies any significant trauma to legs, denies any new medications, skin products, soaps, plant or animal exposures. Denies any fever, body aches, or chills. Denies any painkillers or skin meds/products other than his usual wound care regimen of desoxymetasone and vaseline q3 days. Endorses showering every other day. Fall: states today he was on his way from his bed to the bathroom when he fell onto his bottom to carpeted bedroom floor, found by son 6-7hrs after fall. Endorses he was physically unable to get up despite efforts. Initially stated he was on his way to the bathroom and then all of a sudden he was sitting on the floor with his back against his bed. Denied any dizziness, lightheadedness, SOB, chest pain, or head trauma. Ultimately denied any loss of consciousness between heading to the bathroom and ending up on the floor. Denies any significant issues with falls in the past. Notes his oral intake has been less than usual within the last week, though endorses good fluid intake. Home: lives with his son in a private home with 3 floors. - has a cane and a walker but generally gets around independently, including stairs Home health: only wound care nurse q3 days, applies desoxymetasone and vaseline - open to case mgmt to discuss options for escalation of care ER course: given NS 1L at 250cc/hr, cefepime 2g, vancomycin 2,500mg in NS, mag sulfate x2 bags Admission Exam Per Admitting Provider Gen: A&Ox3, appearing in no acute distress, satting mid-upper 90s on room air HEENT: EOM intact, anicteric sclerae, PERRL b/l CV: borderline tachy rate, irregular rhythm, +s1/s2, distant heart sounds thus no obvious m/r/g, 2+ radial pulses b/l; unable to palpate LE pulses due to edema Resp: air movement limited by body habitus, otherwise clear to auscultation b/l, no wheeze/rales/rhonchi GI/Abd: normo-hyperactive BS, no distension other than obesity, no guarding, no tenderness to palpation of entire abdomen MSK: LLE with raised dry, hardened/thickened callous from mid-wood down to foot, otherwise b/l LE with base of erythema and nonpitting edema, tender to palpation in most areas of erythema and swelling up to upper thighs, several areas of gauze overlying more raw skin but no active bleeding or oozing seen; malodorous - 5/5 strength in b/l UE, 4/5 strength in b/l LENeuro: no facial droop, speech intact, no focal deficits, wiggles toes on command - unable to assess gait at time of examination in ER roomPsych: fair eye contact, mood-affect congruence Principal Diagnosis Lower leg Cellulitis with chronic venous stasis Discharge Exam Gen: A&Ox3, appearing in no acute distress, satting mid-upper 90s on room air HEENT: EOM intact, anicteric sclerae, PERRL b/l CV: normal rate and rhythm, +s1/s2, distant heart sounds thus no obvious m/r/g, 2+ radial pulses b/l; unable to palpate LE pulses due to edema Resp: air movement limited by body habitus, otherwise clear to auscultation b/l, no wheeze/rales/rhonchi GI/Abd: normo-hyperactive BS, no distension other than obesity, no guarding, no tenderness to palpation of entire abdomen MSK: LLE with raised dry, hardened/thickened callous from mid-wood down to foot, otherwise b/l LE with base of erythema and nonpitting edema, tender to palpation in most areas of erythema and swelling up to upper thighs, several areas of gauze overlying more raw skin but no active bleeding or oozing seen; malodorous - 5/5 strength in b/l UE, 4/5 strength in b/l LE Skin: Rash resolved. Psych: fair eye contact, mood-affect congruence Discharge Data Allergies Allergy/AdvReac Type Severity Reaction Status Date / Time furosemide Allergy Severe Caused Unverified 11/12/24 13:07 issue with kidneys Sulfa (Sulfonamide Allergy Severe Hives, Unverified 11/12/24 13:07 Antibiotics) skin sloughing sulfamethoxazole Allergy Severe Hives, Verified 11/12/24 13:07 [From skin Sulfamethoxazole-Trimethoprim] sloughing trimethoprim Allergy Severe Hives, Verified 11/12/24 13:07 [From skin Sulfamethoxazole-Trimethoprim] sloughing hydrochlorothiazide Allergy Unknown "shut down Verified 11/12/24 13:07 kidneys" Consultations 11/26/24 17:55 ED Decision to Admit Stat Ordered Studies 11/26/24 14:40 CT cervical spine wo con Stat CT head/brain wo con Stat 11/26/24 15:37 CT abd pelvis wo con Stat Hospital Course (1) Fall: (2) Acute kidney injury superimposed on CKD: (3) Venous stasis dermatitis of both lower extremities: (4) Rash: Plan Santi is a 78yo male with medical history of b/l lower extremity chronic venous stasis dermatitis, prior b/l LE cellulitis treated with failed outpatient treatment with keflex within the last 1-2mos, atrial fibrillation, CKD III, and hypothyroidism, brought to ER by EMS due to his son's concern about an unwitnessed fall. #Fall, unwitnessed #Weakness - Unwitnessed fall possible stiffness from chronic venous stasis with cellulitis. - Continue PT/OT - Patient agreeable to getting discharged to [facility], case mgmt has a bed hold for him. - Will consider discharge him tomorrow to the center care. #Sepsis #Chronic venous stasis changes w/ dermatitis #Cellulitis, lower extremity, suspected -WBCs 15-> 12.83 CRP 8. - Continue vancomycin and cefepime due to prior wound cx growing MDR S. aureus and Pseudomonas - continue above abx, pending blood cultures with dosing based on eGFR, currently 36.12; new wound cefepine- 2000mg q24h; vancomycin 15-20mg/kg body weight (~2,500mg) q24-48 Adjust abx based on sensitivities - Continue wound care consult. - CBC AM #Rhabdomyolysis #DALE on CKD III #Hematuria Baseline creatinine 1.7-1.9 in Mar 2024; UA with 3+ blood, RBCs - creatinine elevation to 1012 likely due to combination of dehydration and rhabdomyolysis from fall and being stuck on floor for 6-7hrs Given NS at 250cc/hr Continue plasmalyte at 80cc/hr - BMP AM #Elevated troponin #Cardiomyopathy, known #Aortic stenosis, mild-moderate Trop 70s -> 20.8, denies any chest pain or SOB, likely inc due to demand ischemia Trend to peak, continue monitoring on telemetry Last echo with LVEF 60% and mild-moderate aortic stenosis in Nov 2021 but reported to be as low as 40%; pt reported interval worsening of venous stasis changes Ordered echocardiogram- Moderate aortic valve sclerosis on 11/27. #Subtherapeutic INR #Atrial fibrillation, on warfarin Was 2.3 today, reported therapeutic range is 2-3 Will continue home dose of 5mg today, no acute concerns for bleeding PT/INR in AM Otherwise continue warfarin at current home regimen Continue metoprolol succinate 100mg daily #Obstructive sleep apnea Has CPAP at home but reportedly non-compliant Ordered CPAP while inpatient Chronic stable: hypothyroidism- continue levothyroxine HLD- continue rosuvastatin VTE ppx: continue home warfarin Dispo: med/surg tele Total Time Total Time Spent Total Time Spent (In Minutes): <30 Discharge Plan Discharge Items Patient Disposition: Transfer Long Term Fac Reason For Visit: FALL, CELLULITIS Discharge Diagnosis: Cellulitis with chronic venous stasis Condition on Discharge: Fair Activity: Per Instructions section Non-emergency contact: Primary Care Provider Call non-emergency contact if: your symptoms worsen Follow-up/Referrals: Clovis Heredia [Primary Care Provider] - Diet: Heart Healthy and Low Sodium (2gm) Addtl Attending Provider Instructions: You were admitted to the hospital for unwitnessed fall with cellulitis of your legs. You were treated with IV Cefepime and Vancomycin. You were deemed safe for discharge when your leg cellulitis resolved. You had a unwitnessed fall, so we did a "echocardiogram test" on your heart which was not concerning of a fall as you had a history of thickened valve of your heart on the previous ultrasound of your heart. And we treated your leg infection with IV antibiotics and your chronic leg problem with daily wound care. Your infection in your legs improved so we are discharged you but because of weakness in your legs we are discharging you to the senior living facility where you will be getting physical therapy for your legs which would help you with the possible stiffness and mobility issue you had because of your chronic venous stasis. Please continue your home wound care as well because that's very important in regard to the chronic problem. Your INR was 3.2 on the morning of discharge - repeat labs and adjust warfarin until target INR of 2-3 reached. Medications Your medication list has been reviewed and reconciled. An updated list is included with your discharge paperwork; please review this list closely and make note of any changes. Take your medications as instructed; do not skip a dose. Make sure all of your doctors know every medicine you are taking (including [id number]-spxgedu medicines, vitamins, and supplements) Follow-up appointments: Make a follow-up appointment with your PCP within the next week. It is very important that you follow up with them shortly after discharge from the hospital. Keep all your follow-up appointments as already scheduled. If you cannot make an appointment, notify your provider. Please bring a copy of this discharge summary with you to your next office appointment so that your provider can review it at that time and stay updated on your hospitalization and potential changes in your care. You may call [phone] and ask to leave a message for Dr. Cardoso if you have any issues filling your new prescriptions or any questions about your hos pitalization. Contact your PCP if your symptoms return or worsen. Call [phone] or go to the ER if you experience any of the following: Sudden, severe abdominal pain or nausea/vomiting Severe chest pain, or chest pain that radiates (moves) to your jaw or arm Sudden, severe shortness of breath or difficulty breathing Thank you for allowing us to participate in your care. Pending Studies at Discharge: No Stand-Alone Forms: My [facility] Skilled Items Patient informed of condition?: Yes DNR: No Discharge Level of Care: Skilled Communicable Disease: No Discharge Prognosis: Improving Lines: None Urinary Catheter: No Medications and DC Order Prescriptions: Continued acetaminophen 500 mg tablet 1,000 mg PO BID PRN (Reason: Pain) levothyroxine 175 mcg tablet 175 mcg PO DAILY allopurinol 100 mg tablet 200 mg PO QAM metoprolol succinate 100 mg tablet extended release 24 hr 100 mg PO HS Qty: 0 desoximetasone 0.25 % ointment 1 applic topical DAILY Qty: 100 1RF Rx Instructions: Apply to areas of the legs once daily as directed for flaring. warfarin 5 mg tablet See Rx Instructions PO UD Qty: 40 0RF Rx Instructions: 7.5mg q Sunday, , Sunday, 5mg x 4 days per [facility] orally use as directed; ferrous sulfate [Feosol] 325 mg (65 mg iron) tablet 325 mg PO DAILY cholecalciferol (vitamin D3) [Vitamin D3] 25 mcg (1,000 unit) tablet 50 mcg PO QAM rosuvastatin 5 mg tablet 5 mg PO QAM Discontinued cephalexin 500 mg capsule 500 mg PO TID 10 Days Qty: 30 0RF Discharge Orders: Discharge Order (Routine); Ordered 12/02/24 Ordered By: Alida Cardoso Admission Data Admit Date/Time: 11/26/24 19:40 Attending Provider: Byron Mclain Admit Provider: Sadiq Lora V. Primary Care Provider: Clovis Heredia Other Providers: Kamaljit Castillo; [facility]; [facility]; [place],[facility] [place]; [facility] [place] Other Interventions: Discharge Summary Assessment (RN) Last Done: 12/02/24 14:43 Supervising Physician Co-Signing Physician Notes I personally examined the patient and verified all peters points of history and exam, discussed case, and agree with decision making with Dr Cardoso No new issues. For rehab today. Vitals noted, in general he is awake and alert pleasant no distress. HEENT normocephalic atraumatic mucous membranes moist. Bilateral lower extremities dressed with a little bit of dull erythema outside the dressing, but nothing appears to be tracking. Legs are not tender. Lower extremity cellulitis (probably with sepsis present on admissionSIRS criteria being heart rate and white count)improving. Finish 7 days of antibiotics covering for MRSA and Pseudomonas based on prior cultures from earlier this summer. White count slightly higher than beforebut no other signs or symptoms of infectionnonspecific. Repeat CBC next week. WeaknessPT/OT eval and treat, for SNF/rehab emphasis today repeat CBC next week
== END 2024-12-02 15:53 | DRG 872 ==
LOC: ED 14:07 → SUATTDRO 19:40 → EDINP 19:40 → 2N 22:28